=== PATIENT | female | born 1975 | race Caucasian/White ===

== ENCOUNTER 2016-09-08 17:01 | Emergency (ER) | payer OTHER ==
[~2016-09-08] VITALS: Ht 160 cm; Wt 114.9 kg
[~2016-09-08 17:01] MED LIST: AMIT50TA3 PO; INSUINJ14 SC; LEVO50TA6 PO; PANT40TA PO; ZOLP10TA PO
[2016-09-08 17:14] VITALS: TEMP 36.9; Ht 160 cm; Wt 114.9 kg
[2016-09-08] MEDS ORDERED: SODIUM CHLORIDE 0.9% 1000ML 1,000 ML IV STA ×2 (18:26→19:13)
[2016-09-08 18:58] LABS: BASO % 0.3 %; BASO ABS # 0.03 K/uL (0-0.2); COMPLETE YES; EOS % 1.2 %; HEMATOCRIT 43.2 % (37-47); IG% 0.4 %; LYMPH % 30.1 %; LYMPH ABS # 3.41 K/uL (1.2-3.4); MEAN CELL VOLUME 81.8 fL (80-100); MEAN CORPUSCULAR HEMOGLOBIN 29.4 pg (25-34); MEAN CORPUSCULAR HGB CONC 35.9 g/dl (32-36); MEAN PLATELET VOLUME 9.8 fL (7.4-10.4); MONO % 5.7 %; NEUT % 62.3 %; PLATELET COUNT 290 K/uL (130-400); RED BLOOD COUNT 5.28 M/uL (4.2-5.4); WHITE BLOOD COUNT 11.32 K/uL (4.8-10.8)
[2016-09-08 19:07] VITALS: O2SAT 98
[2016-09-08 19:09] LABS: PROTHROMBIN TIME (PATIENT) 10.5 SECONDS (9.0-12.0)
[2016-09-08] MEDS ORDERED: NovoLIN-R INSULIN PER UNIT CHARGE IV STA (19:13)
[2016-09-08 19:18] LABS: BUN/CREATININE RATIO 9.5 (10-20); CALCIUM 10.2 mg/dl (8.5-10.1); CREATININE 0.87 mg/dl (0.60-1.20); MAGNESIUM 1.9 mg/dl (1.8-2.4); POTASSIUM 3.6 mmol/L (3.5-5.1)
[2016-09-08 19:27] LABS: BETA-HYDROXYBUTYRATE 1.46 mg/dL (0.2-2.81); THYROID STIMULATING HORMONE 3.16 uIu/ml (0.300-4.500)
[2016-09-08 20:14] LABS: URINE APPEARANCE CLEAR (CLEAR); URINE BILIRUBIN NEG (NEG); URINE COLOR YELLOW; URINE NITRITE NEG (NEG); URINE SPECIFIC GRAVITY 1.012 (1.000-1.030); UROBILINOGEN NEG (NEG)
[2016-09-08 20:27] LABS: MANUAL MICROSCOPIC REQUIRED? NO; REVIEW REQ? NO
[2016-09-08] MEDS ORDERED: ALBUAER INH (20:30)
[2016-09-08 21:42] VITALS: BP 146/74; PULSE 98; O2SAT 98
--- NOTE | 2016-09-08 21:43 | EMERGENCY ROOM VISIT NOTE ---
History Report prepared by Fred: Lana Bagley Under the Supervision of: Dr. George Villatoro M.D. 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 States BSG in the 400's the past couple days. Pt states, "I feel like I am getting a cold. I get nausea when I eat." History of Present Illness The patient is a 41 year old female who presents to the Emergency Room with complaints of persistent hyperglycemia that began prior to arrival. The patient states that she was at her PCP's office today that revealed a blood glucose level of 547 mg/dL. She states that she was instructed to go home, recheck her blood glucose level, take insulin, and then come to the emergency department if it is still elevated. The patient states that her blood glucose level was still elevated and was instructed to come to the emergency department. She additionally associates dizziness, polydipsia, and polyuria with her symptoms today. The patient states that she takes NovoLog and Metformin for her diabetes, but states that she often forgets to take her insulin when she eats. She states that she takes 40 units of NovoLog in the evening and if her level is high, she has been told that she can add more NovoLog. The patient states that she has had a hard time maintaining her blood glucose levels and states that she feels uneasy going home even if her blood glucose is brought down to a normal level. She additionally notes that she feels as if she is developing a cold. Pt denies LOC, headache, fevers, chills, diaphoresis, visual changes, neck pain, chest pain, breathing difficulties, nausea, vomiting, abdominal pain, back pain, melena, hematochezia, urinary symptoms, numbness, weakness, lymphadenopathy, rash, or other complaints. Source of History: patient Onset: prior to arrival Position: other (global) Symptom Intensity: 547 mg/dL Quality: other (hyperglycemia) Timing: other (persistent) Associated Symptoms: + urinary symptoms (polyuria) Note: Associated Symptoms: dizziness, polydipsia Review of Systems See HPI for pertinent positives and negatives. A total of ten systems were reviewed and were otherwise negative. Past Medical & Surgical Medical Problems: (1) Asthma (2) ASTHMA, UNSPECIFIED (3) BIPOLAR DISORDER, UNSPECIFIED (4) DIAB NIKHIL WO COMPL, TYPE II OR UNSPEC TYPE, NOT UNCNTRLD (5) Diabetic neuropathy (6) DIVERTICULOSIS COLON (W/O MENT OF HEMORRHAGE) (7) DKA (diabetic ketoacidoses) (8) Endometriosis (9) ESOPHAGEAL REFLUX (10) Gallstone (11) Gastritis (12) Hiatal hernia (13) Hyperlipidemia (14) IBS (irritable bowel syndrome) (15) MIGRAINE UNSPECIFIED W/O INTRACTABLE MIGRAINE (16) MORBID OBESITY (17) Ovarian cyst (18) Sciatica (19) TIA (transient ischemic attack) (20) Vertigo Surgical Problems: (1) H/O: hysterectomy (2) History of cholecystectomy (3) TUBAL LIGATION STATUS Family History Diabetes mellitus FH: gallbladder disease FH: lung disease FH: seizures Heart disease Hypertension Social History Smoking Status: Never Smoker Alcohol Use: none Drug Use: none Marital Status: in relationship Housing Status: lives with family Occupation Status: unemployed Current/Historical Medications Scheduled Amitriptyline Hcl (Amitriptyline Hcl), 50 MG PO HS Aspirin (Aspirin Ec), 81 MG PO DAILY Bupropion (Wellbutrin Sr), 100 MG PO QPM Calcium Carbonate (Tums), 2 TABS PO PRN Diclofenac Sod (Diclofenac Sodium Dr), 50 MG PO DAILY Diphenhydramine Hcl (Benadryl Allergy), 1 CAP PO HS Fluticasone Prop/Salmeterol (Advair Diskus 250/50 60 Dose), 1 PUFF INH BID Gabapentin (Gabapentin), 300 MG PO TID Insulin Aspart Penfill (Novolog Penfill), 40 UNITS SC TIDM Insulin Glargine (Toujeo Solostar), 90 UNITS SQ DAILY Levothyroxine Sodium (Levothyroxine Sodium), 50 MCG PO DAILY Lisinopril (Lisinopril), 2.5 MG PO DAILY Metformin Hcl Er (Glucophage Er), 1,000 MG PO HS Olanzapine (Zyprexa), 20 MG PO HS Pantoprazole (Protonix), 40 MG PO DAILY Polyethylene Glycol 3350 (Miralax), 17 GM PO DAILY Ranitidine Hcl (Zantac), 300 MG PO HS Simvastatin (Simvastatin), 20 MG PO DAILY Zolpidem Tartrate (Ambien), 10 MG PO HS Scheduled PRN Albuterol (Proventil Hfa), 2 PUFFS INH Q4-6HRS PRN for Asthma Docusate Sodium (Colace), 100 MG PO BID PRN for Constipation Fluticasone Propionate (Fluticasone Propionate), 2 SPRAYS ROLY DAILY PRN for Allergies Ibuprofen (Advil), 800 MG PO DAILY PRN for Headache or Pain Ipratropium-Albuterol (Duoneb), 1 TREATMENT INH Q4H PRN for PRN Loratadine (Claritin), 10 MG PO DAILY PRN for ALLERGIC REACTION Lorazepam (Lorazepam), 0.5 MG PO BID PRN for Anxiety Allergies Coded Allergies: BEE STING (Verified Allergy, Intermediate, LARGE SWELLING/RED/WELT. TURNS INTO BRUISING, 05/14/16) Dust (Verified Allergy, Intermediate, ITCHY EYES/SCRATCHY THROAT. SWOLLEN EYES, 05/14/16) Morphine (Verified Allergy, Intermediate, LOCALIZED REACTION: RED/WELTS, ) POLLEN (Verified Allergy, Intermediate, ITCHY EYES/SCRATCHY THROAT. SWOLLEN EYES, 05/14/16) Adhesives (Verified Allergy, Unknown, VERY RED SKIN AND ITCHY, 05/14/16) Citalopram (Verified Allergy, Unknown, JAW PAIN AND HEADACHES, 05/14/16) Physical Exam Vital Signs Date Time Temp Pulse Resp B/P Pulse Ox O2 Delivery O2 Flow Rate FiO2 09/08/16 19:10 102 09/08/16 19:07 98 Room Air 09/08/16 17:14 36.9 121 18 129/90 95 Room Air Physical Exam GENERAL: Awake, alert, well-appearing, in no distress HENT: Normocephalic, atraumatic. Oropharynx unremarkable. EYES: Normal conjunctiva. Sclera non-icteric. NECK: Supple. No nuchal rigidity. FROM. No JVD. RESPIRATORY: Clear to auscultation. CARDIAC: Borderline tachycardic rate, normal rhythm. Extremities warm and well perfused. Pulses equal. ABDOMEN: Soft, non-distended. No tenderness to palpation. No rebound or guarding. No masses. RECTAL: Deferred. MUSCULOSKELETAL: Chest examination reveals no tenderness. The back is symmetrical on inspection without obvious abnormality. There is no CVA tenderness to palpation. No joint edema. LOWER EXTREMITIES: Calves are equal size bilaterally and non-tender. No edema. No discoloration. NEURO: Normal sensorium. No sensory or motor deficits noted. SKIN: No rash or jaundice noted. Medical Decision & Procedures Laboratory Results 09/08/16 18:35 Red Blood Count 5.28, Mean Corpuscular Volume 81.8, Mean Corpuscular Hemoglobin 29.4, Mean Corpuscular Hemoglobin Concent 35.9, Mean Platelet Volume 9.8, Neutrophils (%) (Auto) 62.3, Lymphocytes (%) (Auto) 30.1, Monocytes (%) (Auto) 5.7, Eosinophils (%) (Auto) 1.2, Basophils (%) (Auto) 0.3, Neutrophils # (Auto) 7.06, Lymphocytes # (Auto) 3.41, Monocytes # (Auto) 0.64, Eosinophils # (Auto) 0.14, Basophils # (Auto) 0.03 09/08/16 18:35 Test 09/08/16 14:55 09/08/16 18:35 09/08/16 20:43 Urine Color YELLOW Urine Appearance CLEAR (CLEAR) Urine pH 5.0 (4.5-7.5) Urine Specific [place] 1.012 (1.000-1.030) Urine Protein NEG (NEG) Urine Glucose (UA) 3+ (NEG) Urine Ketones NEG (NEG) Urine Occult Blood NEG (NEG) Urine Nitrite NEG (NEG) Urine Bilirubin NEG (NEG) Urine Urobilinogen NEG (NEG) Urine Leukocyte Esterase NEG (NEG) White Blood Count 11.32 K/uL (4.8-10.8) Red Blood Count 5.28 M/uL (4.2-5.4) Hemoglobin 15.5 g/dL (12.0-16.0) Hematocrit 43.2 % (37-47) Mean Corpuscular Volume 81.8 fL (80-100) Mean Corpuscular Hemoglobin 29.4 pg (25-34) Mean Corpuscular Hemoglobin Concent 35.9 g/dl (32-36) Platelet Count 290 K/uL (130-400) Mean Platelet Volume 9.8 fL (7.4-10.4) Neutrophils (%) (Auto) 62.3 % Lymphocytes (%) (Auto) 30.1 % Monocytes (%) (Auto) 5.7 % Eosinophils (%) (Auto) 1.2 % Basophils (%) (Auto) 0.3 % Neutrophils # (Auto) 7.06 K/uL (1.4-6.5) Lymphocytes # (Auto) 3.41 K/uL (1.2-3.4) Monocytes # (Auto) 0.64 K/uL (0.11-0.59) Eosinophils # (Auto) 0.14 K/uL (0-0.5) Basophils # (Auto) 0.03 K/uL (0-0.2) RDW Standard Deviation 39.2 fL (36.4-46.3) RDW Coefficient of Variation 13.0 % (11.5-14.5) Immature Granulocyte % (Auto) 0.4 % Immature Granulocyte # (Auto) 0.04 K/uL (0.00-0.02) Prothrombin Time 10.5 SECONDS (9.0-12.0) Prothromb Time International Ratio 1.0 (0.9-1.1) Activated Partial Thromboplast Time 24.8 SECONDS (21.0-31.0) Partial Thromboplastin Ratio 1.0 Anion Gap 11.0 mmol/L (3-11) Est Creatinine Clear Calc Drug Dose 101.9 ml/min Estimated GFR () 94.6 Estimated GFR (Non- 81.6 BUN/Creatinine Ratio 9.5 (10-20) Calcium Level 10.2 mg/dl (8.5-10.1) Magnesium Level 1.9 mg/dl (1.8-2.4) Total Bilirubin 0.4 mg/dl (0.2-1) Direct Bilirubin 0.1 mg/dl (0-0.2) Aspartate Amino Transf (AST/SGOT) 47 U/L (15-37) Alanine Aminotransferase (ALT/SGPT) 59 U/L (12-78) Alkaline Phosphatase 145 U/L (45-117) Total Protein 8.5 gm/dl (6.4-8.2) Albumin 3.7 gm/dl (3.4-5.0) Lipase 154 U/L (73-393) Beta-Hydroxybutyric Acid 1.46 mg/dL (0.2-2.81) Thyroid Stimulating Hormone (TSH) 3.160 uIu/ml (0.300-4.500) Bedside Glucose 157 mg/dl (70-90) Laboratory results reviewed by me Medications Administered Medications (Trade) Dose Ordered Sig/Moon Route Start Time Stop Time Status Last Admin Dose Admin Sodium Chloride 1,000 ml @ 999 mls/hr Q1H1M STAT IV 09/08/16 18:26 09/08/16 19:26 DC 09/08/16 18:26 999 MLS/HR Sodium Chloride (Nss 1000ml) 1,000 ml @ 999 mls/hr Q1H1M STAT IV 09/08/16 19:13 09/08/16 20:13 DC 09/08/16 19:13 999 MLS/HR Insulin Human Regular (novoLIN-R U-100 PER UNIT) 10 units NOW STAT IV 09/08/16 19:13 09/08/16 19:14 DC 09/08/16 19:13 10 UNITS ECG Indication: other (hyperglycemia) Rate (beats per minute): 106 Rhythm: sinus tachycardia Findings: no acute ischemic change, no ectopy, other (incomplete right bundle branch block) ED Course 1825: Ordered Sodium Chloride 1000 ml @ 999 mls/hr IV. 1835: The patient was evaluated in room C5. A complete history and physical exam was performed by the medical student. 1909: The patient was evaluated in room C5. A complete history and physical exam was performed. 1912: Ordered Insulin Human Regular 10 units IV, Sodium Chloride 1000 ml @ 999 mls/hr IV. 2035: I reevaluated the patient and she is resting comfortably. She is going to have a blood glucose rechecked and is hoping to go home. I discussed all the exam findings and I discussed the treatment plan. She verbalized complete understanding and agreement. 2104: A recheck of the patient's blood glucose revealed 157 mg/dL. 2108: Case management is going to see if a supervisor case loading is available for the patient. Case Management is also going to get the patient in to see her application analyst and PCP tomorrow. 2121: I reevaluated the patient and she is resting comfortably. I discussed the exam findings and I discussed the treatment plan. She verbalized complete understanding and agreement. She is ready to go home. Medical Decision Triage Nursing notes reviewed. The patient's presentation and history were concerning for hyperglycemia. Etiologies such as metabolic, infection, hypo/hyperglycemia, electrolyte abnormalities, cardiac sources, intracerebral event, toxicologic, neurologic, as well as others were entertained. The patient was evaluated. Clinically she was doing well. Her blood sugar was high. The patient seems to have difficulty grasping the concept of diabetic management. She was hydrated. She was given 10 units of IV insulin. Her blood sugar dropped appropriately into a safe range. She was down to 157 prior to discharge. She had a minimal leukocytosis but had no infectious symptoms. Her urinalysis was unremarkable. CBC was unremarkable. Beta hydroxybutyrate was negative. There is no acidosis noted on chemistry panel. I do not suspect DKA given her laboratory findings and her clinical picture. I'm concerned that the patient has a poor understanding about her diabetic management. She also has some issues with follow-up appointments as she accidentally missed her last endocrinology visit. Case management met with the patient on my request. They are going to follow up with her esthetician and manager medical spa as well as primary office and endocrinology office tomorrow morning. The hope is the patient will be able to be seen tomorrow in the office to coordinate additional care. ECG was unremarkable as well. Upon reassessment prior to discharge the patient was doing well. She was in good spirits. She feels comfortable with outpatient follow-up. I gave my usual and customary discussion regarding this issue. By the evaluation outlined above other emergent etiologies such as those listed in the differential, as well as others, were deemed relatively unlikely. The patient was informed about the findings as listed above. All questions were answered and she was pleased with the treatment. Return instructions were outlined and the patient was discharged in stable condition. The patient was referred to her PCP and endocrinology for follow-up tomorrow for a recheck of the current condition. The chart was completed utilizing [employer] Speech voice recognition software. Grammatical errors, random word insertions, pronoun errors, and incomplete sentences are an occasional consequence of this system due to software limitations, ambient noise, and hardware issues. Any formal questions or concerns about the content, text, or information contained within the body of this dictation should be directly addressed to the physician for clarification. Impression Primary Impression: Hyperglycemia Scribe Attestation The scribe's documentation has been prepared under my direction and personally reviewed by me in its entirety. I confirm that the note above accurately reflects all work, treatment, procedures, and medical decision making performed by me. Departure Information Dispostion Home / Self-Care Referrals Katiuska Mortensen DO (PCP) Forms HOME CARE DOCUMENTATION FORM, IMPORTANT VISIT INFORMATION, WORK / SCHOOL INSTRUCTIONS Patient Instructions A Signature Page, My [facility] Additional Instructions Continue current medications. Follow all recommendations present given to you by Endocrinology and your primary physician. Return to the ER for worsening Blood sugar problems, blood sugar greater than than 400 despite your treatment, blood sugar dipping below 70, abdominal pain, vomiting, fevers, bloody stools, or as needed. Case management is going to contact your primary and endocrinology offices tomorrow morning. You should hear from them by 10 AM. If you do not call the offices to set up appointments. You should be seen tomorrow in order to update your diabetes care.
[2016-10-24] MEDS ORDERED: RANI300T PO (13:10)
[2016-10-24] MEDS ORDERED: ATV5X PO (13:10)
[2016-10-24] MEDS ORDERED: ASPI81TA28 PO (14:32)
[2016-10-24] MEDS ORDERED: IPRASOL4 INH (15:55)
[2016-10-24] MEDS ORDERED: POLY335019 PO (15:55)
[2016-10-24] MEDS ORDERED: DIPH25CA65 PO (17:33)
[2016-10-24] MEDS ORDERED: METF500T5 PO (18:01)
[2016-10-24] MEDS ORDERED: INSU1.2I SQ (18:01)
[2016-10-24] MEDS ORDERED: LSN25 PO (18:03)
[2016-10-24] MEDS ORDERED: BUPR100T8 PO (18:04)
[2016-10-24] MEDS ORDERED: LORA10TA5 PO (18:08)
[2016-10-24] MEDS ORDERED: OLAN1TAB5 PO (18:08)
[2016-10-24] MEDS ORDERED: VLT50 PO (18:08)
[2016-10-24] MEDS ORDERED: DOCU-94 PO (19:14)
[2016-10-24] MEDS ORDERED: GABA1CAP4 PO (20:30)
[2016-10-24] MEDS ORDERED: FLNIN/ NAE (20:30)
[2016-10-24] MEDS ORDERED: ADVIN25/60 INH (20:33)
[2016-10-24] MEDS ORDERED: SIMV-151 PO (20:41)
[2016-10-24] MEDS ORDERED: IBUP-1050 PO (20:41)
[2016-10-24] MEDS ORDERED: CALC500C3 PO (20:44)
[2017-04-20] MEDS ORDERED: METF1000 PO (11:05)
[2017-04-20] MEDS ORDERED: VITAMIN D3 PO (11:06)
== END 2016-09-08 21:45 | disposition home or self-care (01) ==
LOC: C.EDB 17:01 → C.EDC 21:45
DX: E11.65 Type 2 diabetes mellitus with hyperglycemia (principal); Z79.4 Long term (current) use of insulin; Z79.899 Other long term (current) drug therapy; Z79.82 Long term (current) use of aspirin; J45.909 Unspecified asthma, uncomplicated; F31.9 Bipolar disorder, unspecified; K21.9 Gastro-esophageal reflux disease without esophagitis; K80.20 Calculus of gallbladder without cholecystitis without obstruction; K58.9 Irritable bowel syndrome, unspecified; K44.9 Diaphragmatic hernia without obstruction or gangrene; E78.5 Hyperlipidemia, unspecified; K57.31 Diverticulosis of large intestine without perforation or abscess with bleeding; E66.01 Morbid (severe) obesity due to excess calories; Z68.41 Body mass index [BMI] 40.0-44.9, adult; K29.71 Gastritis, unspecified, with bleeding

== ENCOUNTER → 2016-09-20 | Outpatient (CLI) | payer OTHER ==
[~2016-09-20] MED LIST changes: +ADVIN25/60 INH; +ALBUAER INH; +AMT/50 PO; +ASPI81TA28 PO; +ATV5X PO; +BUPR100T8 PO; +CALC500C3 PO; +DIPH25CA65 PO; +DOCU-94 PO; +FLM4 PO; +FLNIN/ NAE; +GABA1CAP4 PO; +IBUP-1050 PO; +INSU1.2I SQ; +IPRASOL4 INH; +LEVO75TA5 PO; +LORA10TA5 PO; +LSN25 PO; +METF1000 PO; +METF1TAB53 PO; +METF500T5 PO; +MULT-240 PO; +NITR-5 PO; +NVLGI/PEN SC; +OLAN1TAB5 PO; +ONDA4TAB10 SL; +OXYC-57 PO; +POLY335019 PO; +PRT/40 PO; +RANI300T PO; +SIMV-151 PO; +SULF800T23 PO; +TAMS0.4C38 PO; +VITAMIN D3 PO; +VLT50 PO; +ZOLP10TA6 PO
--- NOTE | 2016-09-21 14:25 | MAMMOGRAPHY REPORT ---
BILATERAL DIGITAL SCREENING MAMMOGRAM TOMOSYNTHESIS WITH CAD: 09/20/2016 CLINICAL HISTORY: Routine screening. Patient has no complaints. TECHNIQUE: Breast tomosynthesis in addition to standard 2D mammography was performed. Current study was also evaluated with a Computer Aided Detection (CAD) system. COMPARISON: Comparison is made to exams dated: 07/22/2015 mammogram, 10/24/2011 mammogram, and 2011 ultrasound - [facility]. BREAST COMPOSITION: The tissue of both breasts is almost entirely fatty. FINDINGS: A 10 x 16 mm focal asymmetry in the 6:00 posterior left breast is increasingly conspicuous compared to prior exams. Although this could represent normal fibrofatty glandular tissue, additio nal spot compression tomosynthesis views and possibly ultrasound are recommended. No other suspicious mass, architectural distortion or cluster of microcalcifications is seen. IMPRESSION: ACR BI-RADS CATEGORY 0: INCOMPLETE EVALUATION: NEED ADDITIONAL IMAGING EVALUATION The 10 x 16 mm focal asymmetry in the left 6:00 breast needs additional evaluation. The patient will be called to schedule an appointment. Approximately 10% of breast cancers are not detected with mammography. A negative mammographic repor t should not delay biopsy if a clinically suggestive mass is present. Sonya Villalpando M.D. ay/:09/20/2016 21:49:55 Oil Mixer: Obdulia MARKS)(Fidel)(BD), [facility] letter sent: Addl Imaging 0 BI-RADS Code: ACR BI-RADS Category 0: Incomplete Evaluation: Need Additional Imaging Evaluation
== END | disposition home or self-care (01) ==
LOC: C.MAMM 14:10
PROVIDERS: ATTEND Nurse Practitioner Adult Health
DX: Z12.31 Encounter for screening mammogram for malignant neoplasm of breast (principal); N64.89 Other specified disorders of breast

== ENCOUNTER → 2016-09-30 | Outpatient (CLI) | payer OTHER ==
--- NOTE | 2016-09-30 12:26 | MAMMOGRAPHY REPORT ---
UNILATERAL LEFT DIGITAL DIAGNOSTIC MAMMOGRAM TOMOSYNTHESIS AND TARGETED LEFT ULTRASOUND: 09/30/2016 CLINICAL HISTORY: Callback from screening mammogram for left breast asymmetry. TECHNIQUE: Breast tomosynthesis in addition to standard 2D mammography was performed. Spot nguyen vasu left CC and MLO 2-D and tomosynthesis images were obtained. COMPARISON: Comparison is made to exams dated: 09/20/2016 mammogram, 07/22/2015 mammogram, 10/24/2011 ultrasound, and 10/24/2011 mammogram - [facility]. BREAST COMPOSITION: The tissue of the left breast is almost entirely fatty. FINDINGS: The previously described focal asymmetry in the left 6:00 breast effaces on the spot comp ression views, with appearance of this region similar to prior exams including the October 2011 exa m. The asymmetry has the appearance of normal fibroglandular tissue on the tomosynthesis images. Targeted ultrasound was performed of the left 6:00 breast in the region of the mammographic asymmetr y. Sonographically normal tissue is seen, without evidence of a mass or other suspicious sonographi c abnormality. IMPRESSION: ACR BI-RADS CATEGORY 2: BENIGN, TARGETED ULTRASOUND ACR BI-RADS CATEGORY 2: BENIGN The left 6:00 asymmetry effaces to a baseline appearance on the additional views, without correspond ing sonographic abnormalities evident. The asymmetry is benign and compatible with normal fibroglan dular tissue. There is no mammographic or targeted sonographic evidence of malignancy. A 1 year scr eening mammogram is recommended. The patient has been verbally notified of the results. Approximately 10% of breast cancers are not detected with mammography. A negative mammographic repor t should not delay biopsy if a clinically suggestive mass is present. Lizbeth Brooks M.D. /:09/30/2016 10:03:53 Carpenter Prototype: Natalie Chua, [facility] letter sent: Normal /2 BI-RADS Code: ACR BI-RADS Category 2: Benign Ultrasound BI-RADS: ACR BI-RADS Category 2: Benign
== END | disposition home or self-care (01) ==
LOC: C.MAMM 09:36
PROVIDERS: ATTEND Nurse Practitioner Adult Health
DX: R92.8 Other abnormal and inconclusive findings on diagnostic imaging of breast (principal)

== ENCOUNTER 2016-10-10 14:20 | Emergency (ER) | payer OTHER ==
[~2016-10-10] VITALS: Ht 160 cm; Wt 113.5 kg
[~2016-10-10 14:20] MED LIST changes: -ADVIN25/60 INH; -AMT/50 PO; -ASPI81TA28 PO; -ATV5X PO; -BUPR100T8 PO; -CALC500C3 PO; -DIPH25CA65 PO; -DOCU-94 PO; -FLM4 PO; -FLNIN/ NAE; -GABA1CAP4 PO; -IBUP-1050 PO; -INSU1.2I SQ; -IPRASOL4 INH; -LEVO75TA5 PO; -LORA10TA5 PO; -LSN25 PO; -METF1000 PO; -METF1TAB53 PO; -METF500T5 PO; -MULT-240 PO; -NITR-5 PO; -NVLGI/PEN SC; -OLAN1TAB5 PO; -ONDA4TAB10 SL; -OXYC-57 PO; -POLY335019 PO; -PRT/40 PO; -RANI300T PO; -SIMV-151 PO; -SULF800T23 PO; -TAMS0.4C38 PO; -VITAMIN D3 PO; -VLT50 PO; -ZOLP10TA6 PO
[2016-10-10 14:30] VITALS: TEMP 36.9; Ht 160 cm; Wt 113.5 kg
[2016-10-10] MEDS ORDERED: KETOROLAC TROMETHAMINE 30 MG/ML VIAL IV STA (14:51)
[2016-10-10 15:34] LABS: URINE APPEARANCE TURBID (CLEAR); URINE COLOR ORANGE; URINE EPITHELIAL CELL AUTO >30 /lpf (0-5); URINE NITRITE POS (NEG); URINE SPECIFIC GRAVITY 1.035 (1.000-1.030); UROBILINOGEN NEG (NEG); ZZUR CULT IF INDIC CLEAN CATCH YES
[2016-10-10 15:35] LABS: MANUAL MICROSCOPIC REQUIRED? NO; REVIEW REQ? YES
[2016-10-10 15:37] LABS: BASO % 0.1 %; BASO ABS # 0.01 K/uL (0-0.2); COMPLETE YES; EOS % 1.5 %; HEMATOCRIT 41.8 % (37-47); IG% 0.3 %; LYMPH % 25.2 %; LYMPH ABS # 2.18 K/uL (1.2-3.4); MEAN CELL VOLUME 83.3 fL (80-100); MEAN CORPUSCULAR HEMOGLOBIN 29.3 pg (25-34); MEAN CORPUSCULAR HGB CONC 35.2 g/dl (32-36); MONO % 4.9 %; PLATELET COUNT 252 K/uL (130-400); RED BLOOD COUNT 5.02 M/uL (4.2-5.4); WHITE BLOOD COUNT 8.64 K/uL (4.8-10.8)
[2016-10-10 15:37] LABS: URINE BILIRUBIN NEG (NEG)
[2016-10-10 15:42] LABS: BUN/CREATININE RATIO 12.6 (10-20); CREATININE 0.86 mg/dl (0.60-1.20); POTASSIUM 3.7 mmol/L (3.5-5.1)
--- NOTE | 2016-10-10 16:52 | DIAGNOSTIC IMAGING REPORT ---
ULTRASOUND LEFT VENOUS DOPP LOWER EXT UNILAT CLINICAL HISTORY: Left leg pain COMPARISON STUDY: No previous studies for comparison. FINDINGS: Real-time and color flow Doppler imaging were performed. Flow was seen within the femoral, popliteal and calf veins with no intraluminal thrombus demonstrated. The saphenous vein is patent. IMPRESSION: No evidence of left lower extremity DVT. Electronically signed by: Shashi Cesar M.D. 10/10/2016 4:51 PM Dictated Date/Time: 10/10/2016 4:50 PM
--- NOTE | 2016-10-10 16:58 | DIAGNOSTIC IMAGING REPORT ---
EXAMINATION: PELVIC ULTRASOUND (transabdominal and endovaginal) CLINICAL HISTORY: Pelvic pain COMPARISON STUDY: 11/28/2014 FINDINGS: The uterus is surgically absent. The right ovary was not visualized. The left ovary measured 33 x 22 x 33 mm. There is a 22 mm left ovarian cyst.. There is no ultrasonographic evidence of ovarian torsion. It should be noted that ovarian torsion can be present with normal Doppler ultrasonographic findings. There was no evidence of pathologic free pelvic fluid. IMPRESSION: 1. Surgically absent uterus 2. Nonvisualization of the right ovary 3. Interval decrease in the size of the left ovarian cyst currently measuring 22 mm. Electronically signed by: Shashi Cesar M.D. 10/10/2016 4:57 PM Dictated Date/Time: 10/10/2016 4:54 PM
[2016-10-10] MEDS ORDERED: NITR-5 PO (17:16)
[2016-10-10 17:20] VITALS: BP 114/81; PULSE 84; O2SAT 96
--- NOTE | 2016-10-10 22:41 | EMERGENCY ROOM VISIT NOTE ---
History First contact with patient: 14:38 Chief Complaint: ABDOMINAL PAIN Stated Complaint: BELLY PAIN Nursing Triage Summary: abdominal pain and nausea started this morning. denies any other symptoms at this time History of Present Illness The patient is a 41 year old female who presents to the Emergency Room with complaints of lower abdominal pain, mild nausea and pain radiating down the left lower leg to the foot. The patient reports a prior history of ovarian cyst , and reports that this pain feels the same. She has also noticed urinary discomfort. She denies any fevers or chills, or back pain. She does report a prior history of sciatica, and reports that the pain in her leg feels the same. She reports that it feels like a cramp in her left leg. The patient denies any diarrhea, bloody or mucus stools, upper abdominal pain, sore throat or cough. She denies any other recent illnesses. Last menstruation was one week ago, and the patient denies . She rates her discomfort a 5 out of 10. Review of Systems HEENT: Denies dizziness, visual problems, hearing loss, tinnitus. Denies difficulty swallowing or oral lesions. PULMONARY: Denies cough, shortness of breath, sputum production or hemoptysis. CARDIOVASCULAR: Denies chest pain, palpitations, dyspnea on exertion, orthopnea or peripheral edema. GASTROINTESTINAL: Denies diarrhea or constipation, otherwise see history of present illness. GENITOURINARY: Reports dysuria and frequency. Denies hematuria. NEUROLOGIC: Denies history of epilepsy, CVA, TIA or chronic headaches. MUSCULOSKELETAL: Denies history of joint tenderness/swelling. SKIN: Denies rashes or lesions. PSYCHIATRIC: Denies history of depression or mental illness. ENDOCRINE: Denies history of diabetes or thyroid disorders. Past Medical/Surgical History Medical Problems: (1) Asthma (2) ASTHMA, UNSPECIFIED (3) BIPOLAR DISORDER, UNSPECIFIED (4) DIAB NIKHIL WO COMPL, TYPE II OR UNSPEC TYPE, NOT UNCNTRLD (5) Diabetic neuropathy (6) DIVERTICULOSIS COLON (W/O MENT OF HEMORRHAGE) (7) DKA (diabetic ketoacidoses) (8) Endometriosis (9) ESOPHAGEAL REFLUX (10) Gallstone (11) Gastritis (12) Hiatal hernia (13) Hyperlipidemia (14) IBS (irritable bowel syndrome) (15) MIGRAINE UNSPECIFIED W/O INTRACTABLE MIGRAINE (16) MORBID OBESITY (17) Ovarian cyst (18) Sciatica (19) TIA (transient ischemic attack) (20) Vertigo Surgical Problems: (1) H/O: hysterectomy (2) History of cholecystectomy (3) TUBAL LIGATION STATUS Family History Diabetes mellitus FH: gallbladder disease FH: lung disease FH: seizures Heart disease Hypertension Social History Smoking Status: Never Smoker Alcohol Use: none Drug Use: none Marital Status: in relationship Housing Status: lives with family Occupation Status: unemployed Current/Historical Medications Scheduled Amitriptyline Hcl (Amitriptyline Hcl), 50 MG PO HS Aspirin (Aspirin Ec), 81 MG PO DAILY Bupropion (Wellbutrin Sr), 100 MG PO QPM Calcium Carbonate (Tums), 2 TABS PO PRN Diclofenac Sod (Diclofenac Sodium Dr), 50 MG PO DAILY Diphenhydramine Hcl (Benadryl Allergy), 1 CAP PO HS Fluticasone Prop/Salmeterol (Advair Diskus 250/50 60 Dose), 1 PUFF INH BID Gabapentin (Gabapentin), 300 MG PO TID Insulin Aspart Penfill (Novolog Penfill), 40 UNITS SC TIDM Insulin Glargine (Toujeo Solostar), 90 UNITS SQ DAILY Levothyroxine Sodium (Levothyroxine Sodium), 50 MCG PO DAILY Lisinopril (Lisinopril), 2.5 MG PO DAILY Metformin Hcl Er (Glucophage Er), 1,000 MG PO HS Nitrofurantoin Monohyd Macrocr (Macrobid), 100 MG PO BID Olanzapine (Zyprexa), 20 MG PO HS Pantoprazole (Protonix), 40 MG PO DAILY Polyethylene Glycol 3350 (Miralax), 17 GM PO DAILY Ranitidine Hcl (Zantac), 300 MG PO HS Simvastatin (Simvastatin), 20 MG PO DAILY Zolpidem Tartrate (Ambien), 10 MG PO HS Scheduled PRN Albuterol (Proventil Hfa), 2 PUFFS INH Q4-6HRS PRN for Asthma Docusate Sodium (Colace), 100 MG PO BID PRN for Constipation Fluticasone Propionate (Fluticasone Propionate), 2 SPRAYS ROLY DAILY PRN for Allergies Ibuprofen (Advil), 800 MG PO DAILY PRN for Headache or Pain Ipratropium-Albuterol (Duoneb), 1 TREATMENT INH Q4H PRN for PRN Loratadine (Claritin), 10 MG PO DAILY PRN for ALLERGIC REACTION Lorazepam (Lorazepam), 0.5 MG PO BID PRN for Anxiety Allergies Coded Allergies: BEE STING (Verified Allergy, Intermediate, LARGE SWELLING/RED/WELT. TURNS INTO BRUISING, 10/10/16) Dust (Verified Allergy, Intermediate, ITCHY EYES/SCRATCHY THROAT. SWOLLEN EYES, 10/10/16) Morphine (Verified Allergy, Intermediate, LOCALIZED REACTION: RED/WELTS, ) POLLEN (Verified Allergy, Intermediate, ITCHY EYES/SCRATCHY THROAT. SWOLLEN EYES, 10/10/16) Adhesives (Verified Allergy, Unknown, VERY RED SKIN AND ITCHY, 10/10/16) Citalopram (Verified Allergy, Unknown, JAW PAIN AND HEADACHES, 10/10/16) Physical Exam Vital Signs Date Time Temp Pulse Resp B/P Pulse Ox O2 Delivery O2 Flow Rate FiO2 10/10/16 17:20 84 16 114/81 96 Room Air 10/10/16 16:10 108 20 119/78 96 Room Air 10/10/16 14:30 36.9 110 18 113/82 95 Room Air Physical Exam CONSTITUTIONAL: Morbidly obese female, alert and oriented X 3 with positive affect. Patient does not appear in any acute distress on exam. HEENT: Normocephalic, atraumatic. Pupils equal, round and reactive. Ears and nares are clear. No scleral icterus or conjunctival injection/pallor. NECK: Full active range of motion without discomfort. No JVD or carotid bruits. RESPIRATORY: Clear to auscultation bilaterally with no wheezing, crackles, rhonchi or stridor. CARDIOVASCULAR: Regular rate and rhythm with no murmurs, rubs or gallops. GASTROINTESTINAL: Bowel sounds present in all quadrants. She has minimal suprapubic tenderness to palpation. Negative McBurney's point tenderness. No focal left lower quadrant tenderness to palpation. No rigidity, guarding or rebound. Negative CVA tenderness. MUSCULOSKELETAL: Full range of motion of all joints without discomfort. No focal tenderness to palpation through the lower lumbar spine, left SI joint or sciatic notch. Negative logroll. Negative straight leg raise. No obvious edema of the left lower extremity. No tenderness to palpation about the foot, ankle or knee. No popliteal masses. Pedal pulses are intact. INTEGUMENTARY: No rash or other significant dermatologic conditions noted. HEMATOLOGIC: No ecchymosis or petechiae noted. NEUROLOGIC: No focal neurologic deficits noted. Medical Decision & Procedures ER Provider Diagnostic Interpretation: Venous ultrasound of the left lower extremity does not show any evidence for deep vein thrombosis. Pelvic ultrasound does not show any significant ovarian cysts or other acute findings. Radiologist report is as follows: EXAMINATION: PELVIC ULTRASOUND (transabdominal and endovaginal) CLINICAL HISTORY: Pelvic pain COMPARISON STUDY: 11/28/2014 FINDINGS: The uterus is surgically absent. The right ovary was not visualized. The left ovary measured 33 x 22 x 33 mm. There is a 22 mm left ovarian cyst.. There is no ultrasonographic evidence of ovarian torsion. It should be noted that ovarian torsion can be present with normal Doppler ultrasonographic findings. There was no evidence of pathologic free pelvic fluid. IMPRESSION: 1. Surgically absent uterus 2. Nonvisualization of the right ovary 3. Interval decrease in the size of the left ovarian cyst currently measuring 22 mm. Laboratory Results 10/10/16 15:10 Red Blood Count 5.02, Mean Corpuscular Volume 83.3, Mean Corpuscular Hemoglobin 29.3, Mean Corpuscular Hemoglobin Concent 35.2, Mean Platelet Volume 10.0, Neutrophils (%) (Auto) 68.0, Lymphocytes (%) (Auto) 25.2, Monocytes (%) (Auto) 4.9, Eosinophils (%) (Auto) 1.5, Basophils (%) (Auto) 0.1, Neutrophils # (Auto) 5.87, Lymphocytes # (Auto) 2.18, Monocytes # (Auto) 0.42, Eosinophils # (Auto) 0.13, Basophils # (Auto) 0.01 10/10/16 15:10 Test 10/10/16 15:09 10/10/16 15:10 Urine Color ORANGE Urine Appearance TURBID (CLEAR) Urine pH 5.0 (4.5-7.5) Urine Specific [place] 1.035 (1.000-1.030) Urine Protein 1+ (NEG) Urine Glucose (UA) 2+ (NEG) Urine Ketones TRACE (NEG) Urine Occult Blood 3+ (NEG) Urine Nitrite POS (NEG) Urine Bilirubin NEG (NEG) Urine Urobilinogen NEG (NEG) Urine Leukocyte Esterase TRACE (NEG) Urine WBC (Auto) 10-30 /hpf (0-5) Urine RBC (Auto) >30 /hpf (0-4) Urine Hyaline Casts (Auto) 10-30 /lpf (0-5) Urine Epithelial Cells (Auto) >30 /lpf (0-5) Urine Bacteria (Auto) 4+ (NEG) Urine Crystals CALCIUM OXALATE (NONE Urine Pathogenic Casts /lpf (0) Urine Yeast (Auto) (NONE PRSENT) White Blood Count 8.64 K/uL (4.8-10.8) Red Blood Count 5.02 M/uL (4.2-5.4) Hemoglobin 14.7 g/dL (12.0-16.0) Hematocrit 41.8 % (37-47) Mean Corpuscular Volume 83.3 fL (80-100) Mean Corpuscular Hemoglobin 29.3 pg (25-34) Mean Corpuscular Hemoglobin Concent 35.2 g/dl (32-36) Platelet Count 252 K/uL (130-400) Mean Platelet Volume 10.0 fL (7.4-10.4) Neutrophils (%) (Auto) 68.0 % Lymphocytes (%) (Auto) 25.2 % Monocytes (%) (Auto) 4.9 % Eosinophils (%) (Auto) 1.5 % Basophils (%) (Auto) 0.1 % Neutrophils # (Auto) 5.87 K/uL (1.4-6.5) Lymphocytes # (Auto) 2.18 K/uL (1.2-3.4) Monocytes # (Auto) 0.42 K/uL (0.11-0.59) Eosinophils # (Auto) 0.13 K/uL (0-0.5) Basophils # (Auto) 0.01 K/uL (0-0.2) RDW Standard Deviation 39.1 fL (36.4-46.3) RDW Coefficient of Variation 13.0 % (11.5-14.5) Immature Granulocyte % (Auto) 0.3 % Immature Granulocyte # (Auto) 0.03 K/uL (0.00-0.02) Anion Gap 13.0 mmol/L (3-11) Est Creatinine Clear Calc Drug Dose 102.3 ml/min Estimated GFR () 95.9 Estimated GFR (Non- 82.7 BUN/Creatinine Ratio 12.6 (10-20) Calcium Level 9.0 mg/dl (8.5-10.1) Total Bilirubin 0.5 mg/dl (0.2-1) Direct Bilirubin 0.1 mg/dl (0-0.2) Aspartate Amino Transf (AST/SGOT) 80 U/L (15-37) Alanine Aminotransferase (ALT/SGPT) 76 U/L (12-78) Alkaline Phosphatase 109 U/L (45-117) Total Creatine Kinase 21 U/L (26-192) Total Protein 8.1 gm/dl (6.4-8.2) Albumin 3.5 gm/dl (3.4-5.0) Lipase 116 U/L (73-393) The above labs were reviewed. Urinalysis is consistent with infection. Otherwise remaining labs were reviewed and grossly normal except for an elevated glucose of 263. Medications Administered Medications (Trade) Dose Ordered Sig/Moon Route Start Time Stop Time Status Last Admin Dose Admin Ketorolac Tromethamine (Toradol Inj) 30 mg NOW STAT IV 10/10/16 14:51 10/10/16 14:54 DC 10/10/16 15:09 30 MG ED Course Patient history and physical exam were performed. Nurse's notes were reviewed. Vital signs were reviewed, showing a pulse of 110. The patient is afebrile and normotensive. I also reviewed prior medical records. EMR shows that the patient was previously scheduled for a procedure for an ovarian cyst, as well as the GI treatment unit. The patient reports that her ovarian cyst went away, therefore her PURCHASING AGENT canceled her procedure. She does not know what was scheduled to be done in the first place. Regarding her GI treatment, she reports having a colonoscopy and upper endoscopy, and reports that everything was normal. She does not know who did the procedure, but was done here at [facility]. She does not know when the procedure was performed, and I am unable to find an endoscopy or colonoscopy report on the system. The patient does carry a diagnosis of ovarian cyst and diverticulosis. IV access was established and labs were drawn. The patient was administered Toradol 30 mg IVP for pain. She refused any antiemetics. Review of labs shows a urinalysis consistent with infection. Urine culture was ordered. Otherwise remaining labs were normal except for an elevated glucose, given the patient's history of diabetes. Pelvic ultrasound showed an improving left ovarian cyst. The right ovary could not be visualized. Venous ultrasound of the left lower extremity was negative for deep vein thrombosis. The case was also discussed with Dr. Jacob, ED attending physician, who agrees with workup and plan of care. The patient was advised that her symptoms are likely secondary to UTI and sciatica. She was provided a prescription for Macrobid. She was instructed to follow-up with her PCP for further management. The patient reports that she is currently on gabapentin for sciatica. She was instructed to return to the emergency department for significant worsening pain, vomiting or developing fever. The patient was happy with plan of care, and voiced understanding of all discharge instructions, rating her pain a 2 out of 10 at the conclusion of my exam. Medical Decision Workup today is most consistent with urinary tract infection. The patient has a clinical history of sciatica, an ultrasound does not show any evidence for deep vein thrombosis. The patient's abdomen is benign on exam, therefore I do not suspect a surgical abdomen. She also has no fever or leukocytosis, peritoneal signs or CVA tenderness to suggest pyelonephritis. Impression Primary Impression: UTI (urinary tract infection) Additional Impression: Sciatica Departure Information Prescriptions Nitrofurantoin Monohyd Macrocr (Macrobid) 100 Mg Cap 100 MG PO BID for 5 Days, #10 CAP Prov: Marlon Ervin PA 10/10/16 Referrals Katiuska Wallace DO (PCP) Patient Instructions My [facility] Problem Qualifiers Primary Impression: UTI (urinary tract infection) Urinary tract infection type: acute cystitis Hematuria presence: with hematuria Qualified Codes: N30.01 - Acute cystitis with hematuria
[2016-10-24] MEDS ORDERED: ATV5X PO (13:10)
[2016-10-24] MEDS ORDERED: RANI300T PO (13:10)
[2016-10-24] MEDS ORDERED: ASPI81TA28 PO (14:32)
[2016-10-24] MEDS ORDERED: POLY335019 PO (15:55)
[2016-10-24] MEDS ORDERED: IPRASOL4 INH (15:55)
[2016-10-24] MEDS ORDERED: DIPH25CA65 PO (17:33)
[2016-10-24] MEDS ORDERED: METF500T5 PO (18:01)
[2016-10-24] MEDS ORDERED: INSU1.2I SQ (18:01)
[2016-10-24] MEDS ORDERED: LSN25 PO (18:03)
[2016-10-24] MEDS ORDERED: BUPR100T8 PO (18:04)
[2016-10-24] MEDS ORDERED: VLT50 PO (18:08)
[2016-10-24] MEDS ORDERED: OLAN1TAB5 PO (18:08)
[2016-10-24] MEDS ORDERED: LORA10TA5 PO (18:08)
[2016-10-24] MEDS ORDERED: DOCU-94 PO (19:14)
[2016-10-24] MEDS ORDERED: GABA1CAP4 PO (20:30)
[2016-10-24] MEDS ORDERED: FLNIN/ NAE (20:30)
[2016-10-24] MEDS ORDERED: ADVIN25/60 INH (20:33)
[2016-10-24] MEDS ORDERED: SIMV-151 PO (20:41)
[2016-10-24] MEDS ORDERED: IBUP-1050 PO (20:41)
[2016-10-24] MEDS ORDERED: CALC500C3 PO (20:44)
[2017-04-20] MEDS ORDERED: METF1000 PO (11:05)
[2017-04-20] MEDS ORDERED: VITAMIN D3 PO (11:06)
== END 2016-10-10 17:37 | disposition home or self-care (01) ==
LOC: C.EDB 14:21 → C.EDA 17:37
DX: N30.01 Acute cystitis with hematuria (principal); M54.32 Sciatica, left side; J45.909 Unspecified asthma, uncomplicated; F32.9 Major depressive disorder, single episode, unspecified; F31.9 Bipolar disorder, unspecified; K21.9 Gastro-esophageal reflux disease without esophagitis; K29.70 Gastritis, unspecified, without bleeding; E78.5 Hyperlipidemia, unspecified; K58.9 Irritable bowel syndrome, unspecified; G43.909 Migraine, unspecified, not intractable, without status migrainosus; E66.01 Morbid (severe) obesity due to excess calories; Z86.73 Personal history of transient ischemic attack (TIA), and cerebral infarction without residual deficits; Z79.4 Long term (current) use of insulin; Z79.82 Long term (current) use of aspirin; Z79.899 Other long term (current) drug therapy; M79.605 Pain in left leg

== ENCOUNTER 2016-10-17 17:07 | Emergency (ER) | payer OTHER ==
[~2016-10-17] VITALS: Ht 160 cm; Wt 115.3 kg
[2016-10-17 17:14] VITALS: TEMP 37.1; Ht 160 cm; Wt 115.3 kg
--- NOTE | 2016-10-17 17:38 | EMERGENCY ROOM VISIT NOTE ---
History Report prepared by Fred: Ehsan Dockery Under the Supervision of: Dr. Idnia Menchaca M.D. First contact with patient: 17:29 Chief Complaint: PELVIC PAIN Stated Complaint: PELVIC PAIN History of Present Illness The patient is a 41 year old female who presents to the Emergency Room with complaints of constant pelvic pain starting last week. She currently rates her discomfort as a 5/10 in severity. The patient states that she was here last week for abdominal pain, and she was diagnosed with a UTI. The patient states that it developed into pelvic pain, and she feels like she constantly has to urinate. The patient denies any abnormal vaginal discharge. Source of History: patient Onset: a week ago Position: pelvis Symptom Intensity: 5/10 Timing: constant Associated Symptoms: + urinary symptoms Review of Systems See HPI for pertinent positives & negatives. A total of 10 systems reviewed and were otherwise negative. Past Medical & Surgical Medical Problems: (1) Asthma (2) ASTHMA, UNSPECIFIED (3) BIPOLAR DISORDER, UNSPECIFIED (4) DIAB NIKHIL WO COMPL, TYPE II OR UNSPEC TYPE, NOT UNCNTRLD (5) Diabetic neuropathy (6) DIVERTICULOSIS COLON (W/O MENT OF HEMORRHAGE) (7) DKA (diabetic ketoacidoses) (8) Endometriosis (9) ESOPHAGEAL REFLUX (10) Gallstone (11) Gastritis (12) Hiatal hernia (13) Hyperlipidemia (14) IBS (irritable bowel syndrome) (15) MIGRAINE UNSPECIFIED W/O INTRACTABLE MIGRAINE (16) MORBID OBESITY (17) Ovarian cyst (18) Sciatica (19) TIA (transient ischemic attack) (20) Vertigo Surgical Problems: (1) H/O: hysterectomy (2) History of cholecystectomy (3) TUBAL LIGATION STATUS Family History Diabetes mellitus FH: gallbladder disease FH: lung disease FH: seizures Heart disease Hypertension Social History Smoking Status: Never Smoker Alcohol Use: none Drug Use: none Marital Status: in relationship Housing Status: lives with family Occupation Status: unemployed Current/Historical Medications Scheduled Amitriptyline Hcl (Amitriptyline Hcl), 50 MG PO HS Aspirin (Aspirin Ec), 81 MG PO DAILY Bupropion (Wellbutrin Sr), 100 MG PO QPM Calcium Carbonate (Tums), 2 TABS PO PRN Diclofenac Sod (Diclofenac Sodium Dr), 50 MG PO DAILY Diphenhydramine Hcl (Benadryl Allergy), 1 CAP PO HS Fluticasone Prop/Salmeterol (Advair Diskus 250/50 60 Dose), 1 PUFF INH BID Gabapentin (Gabapentin), 300 MG PO TID Insulin Aspart Penfill (Novolog Penfill), 40 UNITS SC TIDM Insulin Glargine (Toujeo Solostar), 90 UNITS SQ DAILY Levothyroxine Sodium (Levothyroxine Sodium), 50 MCG PO DAILY Lisinopril (Lisinopril), 2.5 MG PO DAILY Metformin Hcl Er (Glucophage Er), 1,000 MG PO HS Olanzapine (Zyprexa), 20 MG PO HS Ondasetron Odt (Zofran Odt), 4 MG SL Q6H Pantoprazole (Protonix), 40 MG PO DAILY Polyethylene Glycol 3350 (Miralax), 17 GM PO DAILY Ranitidine Hcl (Zantac), 300 MG PO HS Simvastatin (Simvastatin), 20 MG PO DAILY Tamsulosin Hcl (Flomax), 0.4 MG PO DAILY Zolpidem Tartrate (Ambien), 10 MG PO HS Scheduled PRN Albuterol (Proventil Hfa), 2 PUFFS INH Q4-6HRS PRN for Asthma Docusate Sodium (Colace), 100 MG PO BID PRN for Constipation Fluticasone Propionate (Fluticasone Propionate), 2 SPRAYS ROLY DAILY PRN for Allergies Ibuprofen (Advil), 800 MG PO DAILY PRN for Headache or Pain Ipratropium-Albuterol (Duoneb), 1 TREATMENT INH Q4H PRN for PRN Loratadine (Claritin), 10 MG PO DAILY PRN for ALLERGIC REACTION Lorazepam (Lorazepam), 0.5 MG PO BID PRN for Anxiety Oxycodone/Acetaminophen 5MG/325MG (Percocet 5MG/325MG), 1-2 TABLETS PO Q4H PRN for Pain Allergies Coded Allergies: BEE STING (Verified Allergy, Intermediate, LARGE SWELLING/RED/WELT. TURNS INTO BRUISING, 10/10/16) Dust (Verified Allergy, Intermediate, ITCHY EYES/SCRATCHY THROAT. SWOLLEN EYES, 10/10/16) Morphine (Verified Allergy, Intermediate, LOCALIZED REACTION: RED/WELTS, ) POLLEN (Verified Allergy, Intermediate, ITCHY EYES/SCRATCHY THROAT. SWOLLEN EYES, 10/10/16) Adhesives (Verified Allergy, Unknown, VERY RED SKIN AND ITCHY, 10/10/16) Citalopram (Verified Allergy, Unknown, JAW PAIN AND HEADACHES, 10/10/16) Physical Exam Vital Signs Date Time Temp Pulse Resp B/P Pulse Ox O2 Delivery O2 Flow Rate FiO2 10/17/16 20:48 94 10/17/16 19:59 100 18 144/89 99 Room Air 10/17/16 17:14 37.1 119 18 106/74 96 Room Air Physical Exam CONSTITUTIONAL: Minimal distress. HEENT: No icterus, moist mucous membranes NECK: No meningismus, trachea is midline. CARDIOVASCULAR: Regular rate, normal perfusion RESPIRATORY: Unlabored breathing. Clear to auscultation. GASTROINTESTINAL: Mild lower abdominal tenderness. GENITOURINARY: No flank tenderness MUSCULOSKELETAL: Full range of motion NEUROLOGIC: No acute gross focal deficits. PSYCHIATRIC: Normal affect SKIN: Normal for ethnicity. Medical Decision & Procedures ER Provider Diagnostic Interpretation: Radiology results as stated below per my review and radiologist interpretation. CT SCAN OF THE ABDOMEN AND PELVIS WITH IV CONTRAST CLINICAL HISTORY: Pelvic pain. COMPARISON STUDY: Abdominal CT dated 04/20/2016. Pelvic ultrasound dated 10/10/2016. TECHNIQUE: Following the IV administration of 99 cc of Optiray 320, CT scan of the abdomen and pelvis is performed from the lung bases to the proximal femora. Images are reviewed in the axial, sagittal, and coronal planes. IV contrast was administered without complication. Automated dose control exposure was utilized. The examination is degraded by large body habitus, and by streak artifact from the body wall abutting the CT gantry. CT DOSE: 1491.34 mGy.cm FINDINGS: Lung bases: The heart is normal in size and without pericardial effusion. There is a small hiatal hernia. The lung bases are clear noting minimal dependent atelectasis. Liver: The contrast-enhanced liver is enlarged, measuring 21 cm in length. Liver demonstrates diffusely diminished attenuation consistent with severe hepatic steatosis. There is no intrahepatic biliary ductal dilatation. The hepatic veins and portal veins are patent. Gallbladder: Surgically absent noting clips in the gallbladder fossa. Spleen: Normal in size and attenuation. Pancreas: Unremarkable. Adrenal glands: Unremarkable. Kidneys: The contrast enhanced kidneys are normal in size. There is a 4 mm obstructing calculus at the left vesicoureteral junction seen on image #443. There is no significant associated hydronephrosis. No additional calculi are clearly seen within either kidney on this contrast-enhanced examination. The kidneys enhance symmetrically. Abdominal vasculature: The abdominal aorta is normal in course and caliber. Bowel: The small bowel and colon are normal in course and caliber. The appendix is well-visualized and normal. Peritoneum: There is no intraperitoneal free air or abdominal ascites. There is a small fat-containing umbilical hernia. Lymphadenopathy: None. Pelvic viscera: The bladder is decompressed and grossly unremarkable. The uterus is surgically absent. No adnexal lesion is seen. Small ovarian follicles are identified. Skeletal structures: No lytic or blastic lesions are seen. There are bilateral pars defects at L5. No anterolisthesis is seen at L5-S1. A disc bulge is noted at this level. IMPRESSION: 1. There is a 4 mm obstructing calculus identified at the left vesicoureteral junction. There is no significant left-sided hydroureteronephrosis. 2. Hepatomegaly and severe hepatic steatosis. Electronically signed by: Selvin Wang M.D. 10/17/2016 9:03 PM Dictated Date/Time: 10/17/2016 8:57 PM Laboratory Results 10/17/16 18:00 Red Blood Count 4.76, Mean Corpuscular Volume 82.1, Mean Corpuscular Hemoglobin 29.4, Mean Corpuscular Hemoglobin Concent 35.8, Mean Platelet Volume 9.5, Neutrophils (%) (Auto) 74.3, Lymphocytes (%) (Auto) 20.3, Monocytes (%) (Auto) 3.6, Eosinophils (%) (Auto) 1.6, Basophils (%) (Auto) 0.1, Neutrophils # (Auto) 6.96, Lymphocytes # (Auto) 1.90, Monocytes # (Auto) 0.34, Eosinophils # (Auto) 0.15, Basophils # (Auto) 0.01 10/17/16 18:00 Test 10/17/16 18:00 White Blood Count 9.37 K/uL (4.8-10.8) Red Blood Count 4.76 M/uL (4.2-5.4) Hemoglobin 14.0 g/dL (12.0-16.0) Hematocrit 39.1 % (37-47) Mean Corpuscular Volume 82.1 fL (80-100) Mean Corpuscular Hemoglobin 29.4 pg (25-34) Mean Corpuscular Hemoglobin Concent 35.8 g/dl (32-36) Platelet Count 226 K/uL (130-400) Mean Platelet Volume 9.5 fL (7.4-10.4) Neutrophils (%) (Auto) 74.3 % Lymphocytes (%) (Auto) 20.3 % Monocytes (%) (Auto) 3.6 % Eosinophils (%) (Auto) 1.6 % Basophils (%) (Auto) 0.1 % Neutrophils # (Auto) 6.96 K/uL (1.4-6.5) Lymphocytes # (Auto) 1.90 K/uL (1.2-3.4) Monocytes # (Auto) 0.34 K/uL (0.11-0.59) Eosinophils # (Auto) 0.15 K/uL (0-0.5) Basophils # (Auto) 0.01 K/uL (0-0.2) RDW Standard Deviation 39.1 fL (36.4-46.3) RDW Coefficient of Variation 12.9 % (11.5-14.5) Immature Granulocyte % (Auto) 0.1 % Immature Granulocyte # (Auto) 0.01 K/uL (0.00-0.02) Prothrombin Time 10.3 SECONDS (9.0-12.0) Prothromb Time International Ratio 1.0 (0.9-1.1) Activated Partial Thromboplast Time 23.1 SECONDS (21.0-31.0) Partial Thromboplastin Ratio 0.9 Urine Color YELLOW Urine Appearance CLOUDY (CLEAR) Urine pH 5.0 (4.5-7.5) Urine Specific Devers 1.025 (1.000-1.030) Urine Protein NEG (NEG) Urine Glucose (UA) 3+ (NEG) Urine Ketones 1+ (NEG) Urine Occult Blood NEG (NEG) Urine Nitrite NEG (NEG) Urine Bilirubin NEG (NEG) Urine Urobilinogen NEG (NEG) Urine Leukocyte Esterase NEG (NEG) Urine WBC (Auto) 5-10 /hpf (0-5) Urine RBC (Auto) 0-4 /hpf (0-4) Urine Hyaline Casts (Auto) 5-10 /lpf (0-5) Urine Epithelial Cells (Auto) >30 /lpf (0-5) Urine Bacteria (Auto) 2+ (NEG) Anion Gap 13.0 mmol/L (3-11) Est Creatinine Clear Calc Drug Dose 98.7 ml/min Estimated GFR () 90.8 Estimated GFR (Non- 78.3 BUN/Creatinine Ratio 9.0 (10-20) Calcium Level 9.0 mg/dl (8.5-10.1) Total Bilirubin 0.3 mg/dl (0.2-1) Direct Bilirubin 0.1 mg/dl (0-0.2) Aspartate Amino Transf (AST/SGOT) 46 U/L (15-37) Alanine Aminotransferase (ALT/SGPT) 43 U/L (12-78) Alkaline Phosphatase 123 U/L (45-117) Total Protein 7.6 gm/dl (6.4-8.2) Albumin 3.3 gm/dl (3.4-5.0) Lipase 139 U/L (73-393) Beta-Hydroxybutyric Acid 2.22 mg/dL (0.2-2.81) Urine Opiates Screen NEG (NEG) Urine Methadone, Qualitative NEG (NEG) Urine Barbiturates NEG (NEG) Urine Phencyclidine (PCP) Level NEG (NEG) Ur Amphetamine/Methamphetamine NEG (NEG) MDMA (Ecstasy) Screen POS (NEG) Urine Benzodiazepines Screen NEG (NEG) Urine Cocaine Metabolite NEG (NEG) Urine Marijuana (THC) NEG (NEG) Labs reviewed by ED physician. ED Course 1729: Past medical records reviewed. The patient was evaluated in room B7. A complete history and physical examination was performed. 2229: Upon reexamination the patient is feeling better. I discussed results and treatment plan with the patient. She verbalizes agreement and understanding. The patient is ready for discharge. 2230: Zofran ODT 4mg home pack PO, Percocet 5/325mg 1 homepack PO Medical Decision Differential diagnoses include but are not limited to; somatic complaints, chronic pain, intraabdominal pathology. 41-year-old presents into the emergency room for evaluation of nonspecific vague pressure in her lower abdomen patient within the left side. CT 4 mm stone. Comfortable on reexam 10:30 PM. Home packs Percocet and Zofran. Understands to follow-up with urology. Impression Primary Impression: Kidney stone Scribe Attestation The scribe's documentation has been prepared under my direction and personally reviewed by me in its entirety. I confirm that the note above accurately reflects all work, treatment, procedures, and medical decision making performed by me. Departure Information Dispostion Home / Self-Care Prescriptions Tamsulosin Hcl (FLOMAX) 0.4 Mg Cap 0.4 MG PO DAILY, #10 CAP Prov: India Menchaca MD 10/17/16 Ondasetron Odt (ZOFRAN ODT) 4 Mg Tab 4 MG SL Q6H for Nausea, #20 TAB Prov: India Menchaca MD 10/17/16 Oxycodone/Acetaminophen 5MG/325MG (PERCOCET 5MG/325MG) Tab 1-2 TABLETS PO Q4H Y for Pain, #20 TAB Prov: India Menchaca MD 10/17/16 Referrals Katiuska Wallace DO (PCP) Forms HOME CARE DOCUMENTATION FORM, IMPORTANT VISIT INFORMATION, WORK / SCHOOL INSTRUCTIONS Patient Instructions My [facility]
[2016-10-17 18:18] LABS: BASO % 0.1 %; BASO ABS # 0.01 K/uL (0-0.2); COMPLETE YES; EOS % 1.6 %; HEMATOCRIT 39.1 % (37-47); IG% 0.1 %; LYMPH % 20.3 %; MEAN CELL VOLUME 82.1 fL (80-100); MEAN CORPUSCULAR HEMOGLOBIN 29.4 pg (25-34); MEAN CORPUSCULAR HGB CONC 35.8 g/dl (32-36); MEAN PLATELET VOLUME 9.5 fL (7.4-10.4); MONO % 3.6 %; NEUT % 74.3 %; PLATELET COUNT 226 K/uL (130-400); RED BLOOD COUNT 4.76 M/uL (4.2-5.4); WHITE BLOOD COUNT 9.37 K/uL (4.8-10.8)
[2016-10-17 18:29] LABS: PARTIAL THROMBOPLASTIN RATIO 0.9
[2016-10-17 18:39] LABS: PROTHROMBIN TIME (PATIENT) 10.3 SECONDS (9.0-12.0)
[2016-10-17 18:41] LABS: CREATININE 0.9 mg/dl (0.60-1.20); POTASSIUM 4.1 mmol/L (3.5-5.1)
[2016-10-17 18:50] LABS: BETA-HYDROXYBUTYRATE 2.22 mg/dL (0.2-2.81); MANUAL MICROSCOPIC REQUIRED? NO; REVIEW REQ? NO; URINE APPEARANCE CLOUDY (CLEAR); URINE BILIRUBIN NEG (NEG); URINE COLOR YELLOW; URINE EPITHELIAL CELL AUTO >30 /lpf (0-5); URINE NITRITE NEG (NEG); URINE SPECIFIC GRAVITY 1.025 (1.000-1.030); UROBILINOGEN NEG (NEG); ZZUR CULT IF INDIC CLEAN CATCH YES
[2016-10-17 19:13] LABS: BENZODIAZEPINE, URINE NEG (NEG); COCAINE,URINE NEG (NEG); PHENCYCLIDINE, URINE NEG (NEG)
[2016-10-17] MEDS ORDERED: OPTIRAY 320 IV PRN (19:15)
--- NOTE | 2016-10-17 21:04 | DIAGNOSTIC IMAGING REPORT ---
CT SCAN OF THE ABDOMEN AND PELVIS WITH IV CONTRAST CLINICAL HISTORY: Pelvic pain. COMPARISON STUDY: Abdominal CT dated 04/20/2016. Pelvic ultrasound dated 10/10/2016. TECHNIQUE: Following the IV administration of 99 cc of Optiray 320, CT scan of the abdomen and pelvis is performed from the lung bases to the proximal femora. Images are reviewed in the axial, sagittal, and coronal planes. IV contrast was administered without complication. Automated dose control exposure was utilized. The examination is degraded by large body habitus, and by streak artifact from the body wall abutting the CT gantry. CT DOSE: 1491.34 mGy.cm FINDINGS: Lung bases: The heart is normal in size and without pericardial effusion. There is a small hiatal hernia. The lung bases are clear noting minimal dependent atelectasis. Liver: The contrast-enhanced liver is enlarged, measuring 21 cm in length. Liver demonstrates diffusely diminished attenuation consistent with severe hepatic steatosis. There is no intrahepatic biliary ductal dilatation. The hepatic veins and portal veins are patent. Gallbladder: Surgically absent noting clips in the gallbladder fossa. Spleen: Normal in size and attenuation. Pancreas: Unremarkable. Adrenal glands: Unremarkable. Kidneys: The contrast enhanced kidneys are normal in size. There is a 4 mm obstructing calculus at the left vesicoureteral junction seen on image #443. There is no significant associated hydronephrosis. No additional calculi are clearly seen within either kidney on this contrast-enhanced examination. The kidneys enhance symmetrically. Abdominal vasculature: The abdominal aorta is normal in course and caliber. Bowel: The small bowel and colon are normal in course and caliber. The appendix is well-visualized and normal. Peritoneum: There is no intraperitoneal free air or abdominal ascites. There is a small fat-containing umbilical hernia. Lymphadenopathy: None. Pelvic viscera: The bladder is decompressed and grossly unremarkable. The uterus is surgically absent. No adnexal lesion is seen. Small ovarian follicles are identified. Skeletal structures: No lytic or blastic lesions are seen. There are bilateral pars defects at L5. No anterolisthesis is seen at L5-S1. A disc bulge is noted at this level. IMPRESSION: 1. There is a 4 mm obstructing calculus identified at the left vesicoureteral junction. There is no significant left-sided hydroureteronephrosis. 2. Hepatomegaly and severe hepatic steatosis. Electronically signed by: Selvin Wang M.D. 10/17/2016 9:03 PM Dictated Date/Time: 10/17/2016 8:57 PM
[2016-10-17] MEDS ORDERED: ONDA4TAB10 SL (22:27)
[2016-10-17] MEDS ORDERED: OXYC-57 PO (22:27)
[2016-10-17] MEDS ORDERED: TAMS0.4C38 PO (22:27)
[2016-10-17] MEDS ORDERED: PERCOCET HOME PACK PO ONE (22:30)
[2016-10-17] MEDS ORDERED: ONDANSETRON HOME PACK 4MG OD TAB PO ONE (22:30)
[2016-10-17 22:55] VITALS: BP 136/79; PULSE 96; O2SAT 98
[2016-10-24] MEDS ORDERED: ATV5X PO (13:10)
[2016-10-24] MEDS ORDERED: RANI300T PO (13:10)
[2016-10-24] MEDS ORDERED: ASPI81TA28 PO (14:32)
[2016-10-24] MEDS ORDERED: IPRASOL4 INH (15:55)
[2016-10-24] MEDS ORDERED: POLY335019 PO (15:55)
[2016-10-24] MEDS ORDERED: DIPH25CA65 PO (17:33)
[2016-10-24] MEDS ORDERED: METF500T5 PO (18:01)
[2016-10-24] MEDS ORDERED: INSU1.2I SQ (18:01)
[2016-10-24] MEDS ORDERED: LSN25 PO (18:03)
[2016-10-24] MEDS ORDERED: BUPR100T8 PO (18:04)
[2016-10-24] MEDS ORDERED: LORA10TA5 PO (18:08)
[2016-10-24] MEDS ORDERED: OLAN1TAB5 PO (18:08)
[2016-10-24] MEDS ORDERED: VLT50 PO (18:08)
[2016-10-24] MEDS ORDERED: DOCU-94 PO (19:14)
[2016-10-24] MEDS ORDERED: GABA1CAP4 PO (20:30)
[2016-10-24] MEDS ORDERED: FLNIN/ NAE (20:30)
[2016-10-24] MEDS ORDERED: ADVIN25/60 INH (20:33)
[2016-10-24] MEDS ORDERED: IBUP-1050 PO (20:41)
[2016-10-24] MEDS ORDERED: SIMV-151 PO (20:41)
[2016-10-24] MEDS ORDERED: CALC500C3 PO (20:44)
[2017-04-20] MEDS ORDERED: METF1000 PO (11:05)
[2017-04-20] MEDS ORDERED: VITAMIN D3 PO (11:06)
== END 2016-10-17 22:57 | disposition home or self-care (01) ==
LOC: C.EDB 17:08
DX: N20.0 Calculus of kidney (principal); R16.0 Hepatomegaly, not elsewhere classified; K76.0 Fatty (change of) liver, not elsewhere classified; J45.909 Unspecified asthma, uncomplicated; F31.9 Bipolar disorder, unspecified; E11.40 Type 2 diabetes mellitus with diabetic neuropathy, unspecified; K57.30 Diverticulosis of large intestine without perforation or abscess without bleeding; K21.9 Gastro-esophageal reflux disease without esophagitis; K44.9 Diaphragmatic hernia without obstruction or gangrene; E78.5 Hyperlipidemia, unspecified; K58.9 Irritable bowel syndrome, unspecified; E66.01 Morbid (severe) obesity due to excess calories; Z79.899 Other long term (current) drug therapy; Z86.73 Personal history of transient ischemic attack (TIA), and cerebral infarction without residual deficits; Z90.710 Acquired absence of both cervix and uterus; Z83.3 Family history of diabetes mellitus; Z82.0 Family history of epilepsy and other diseases of the nervous system; Z82.49 Family history of ischemic heart disease and other diseases of the circulatory system; Z79.82 Long term (current) use of aspirin; Z79.4 Long term (current) use of insulin

== ENCOUNTER 2016-10-24 20:56 | Emergency (ER) | payer OTHER ==
[~2016-10-24] VITALS: Ht 160 cm; Wt 114.9 kg
[~2016-10-24 20:56] MED LIST changes: +ADVIN25/60 INH; +ASPI81TA28 PO; +ATV5X PO; +BUPR100T8 PO; +CALC500C3 PO; +DIPH25CA65 PO; +DOCU-94 PO; +FLNIN/ NAE; +GABA1CAP4 PO; +IBUP-1050 PO; +INSU1.2I SQ; +IPRASOL4 INH; +LORA10TA5 PO; +LSN25 PO; +METF500T5 PO; +OLAN1TAB5 PO; +ONDA4TAB10 SL; +OXYC-57 PO; +POLY335019 PO; +RANI300T PO; +SIMV-151 PO; +TAMS0.4C38 PO; +VLT50 PO
[2016-10-24 21:05] VITALS: TEMP 37; Ht 160 cm; Wt 114.9 kg
[2016-10-24] MEDS ORDERED: DiphenhydrAMINE HCL 50 MG/ML VIAL IV STA (21:41)
[2016-10-24] MEDS ORDERED: METOCLOPRAMIDE HCL INJ 5 MG/ML 2 ML VIAL IV STA (21:41)
[2016-10-24] MEDS ORDERED: KETOROLAC TROMETHAMINE 30 MG/ML VIAL IV STA (21:41)
[2016-10-24] MEDS ORDERED: SODIUM CHLORIDE 0.9% 1000ML 1,000 ML IV STA ×2 (21:41)
[2016-10-24] MEDS ORDERED: MULT-240 PO (22:13)
[2016-10-24] MEDS ORDERED: PRT/40 PO (22:13)
[2016-10-24] MEDS ORDERED: LEVO75TA5 PO (22:13)
[2016-10-24] MEDS ORDERED: ZOLP10TA6 PO (22:13)
[2016-10-24] MEDS ORDERED: AMT/50 PO (22:13)
[2016-10-24] MEDS ORDERED: FLM4 PO (22:13)
[2016-10-24] MEDS ORDERED: NVLGI/PEN SC (22:13)
[2016-10-24] MEDS ORDERED: ALBUAER INH (22:17)
[2016-10-24 22:29] LABS: BASO % 0.2 %; BASO ABS # 0.02 K/uL (0-0.2); COMPLETE YES; EOS % 1.6 %; HEMATOCRIT 38.9 % (37-47); IG% 0.3 %; LYMPH % 19.5 %; LYMPH ABS # 1.83 K/uL (1.2-3.4); MEAN CELL VOLUME 82.9 fL (80-100); MEAN CORPUSCULAR HEMOGLOBIN 29.4 pg (25-34); MEAN CORPUSCULAR HGB CONC 35.5 g/dl (32-36); MEAN PLATELET VOLUME 9.3 fL (7.4-10.4); NEUT % 73.4 %; PLATELET COUNT 241 K/uL (130-400); RED BLOOD COUNT 4.69 M/uL (4.2-5.4); WHITE BLOOD COUNT 9.37 K/uL (4.8-10.8)
[2016-10-24 23:07] LABS: URINE APPEARANCE TURBID (CLEAR); URINE BILIRUBIN NEG (NEG); URINE COLOR YELLOW; URINE EPITHELIAL CELL AUTO >30 /lpf (0-5); URINE NITRITE NEG (NEG); URINE SPECIFIC GRAVITY 1.031 (1.000-1.030); UROBILINOGEN NEG (NEG); ZZUR CULT IF INDIC CLEAN CATCH YES
[2016-10-24 23:13] LABS: MANUAL MICROSCOPIC REQUIRED? NO; REVIEW REQ? YES
[2016-10-24] MEDS ORDERED: CEFTRIAXONE SOD INJ 1 GM ADDVIAL IV STA (23:52)
[2016-10-25 00:21] LABS: PREG INTERNAL NEGATIVE QC NEG CLEAR BACKGROUND; PREG INTERNAL POSITIVE QC POS CONTROL LINE
[2016-10-25 00:26] LABS: BUN/CREATININE RATIO 18.5 (10-20); CALCIUM 8.3 mg/dl (8.5-10.1); CREATININE 0.71 mg/dl (0.60-1.20); POTASSIUM 3.8 mmol/L (3.5-5.1)
[2016-10-25 00:29] LABS: ALB/GLOB RATIO 0.7 (0.9-2)
--- NOTE | 2016-10-25 00:41 | EMERGENCY ROOM VISIT NOTE ---
History First contact with patient: 21:30 Chief Complaint: URINARY SYMPTOMS Stated Complaint: KIDNEY PAIN Nursing Triage Summary: Patient c/o ? UTI. States, "I just had one, but I also have a 4mm stone." Associates urinary frequency and pain after urinating. History of Present Illness The patient is a 41 year old female who presents to the Emergency Room with complaints of right flank pain that radiates to her groin with urinary symptoms for the past few days was diagnosed with kidney stone a few days ago and UTI. Patient describes the pain as aching, ranging in severity 5 out of 10. Nothing makes it better or worse. Patient has a urologist but cannot recall the name. Patient denies chest pain, dyspnea, fever, chills, nausea, vomiting, diarrhea, leg pain or weakness. Patient is tolerating by mouth fluids and food. Review of Systems See HPI for pertinent positives & negatives. A total of 10 systems reviewed and were otherwise negative. Past Medical/Surgical History Medical Problems: (1) Asthma (2) ASTHMA, UNSPECIFIED (3) BIPOLAR DISORDER, UNSPECIFIED (4) DIAB NIKHIL WO COMPL, TYPE II OR UNSPEC TYPE, NOT UNCNTRLD (5) Diabetic neuropathy (6) DIVERTICULOSIS COLON (W/O MENT OF HEMORRHAGE) (7) DKA (diabetic ketoacidoses) (8) Endometriosis (9) ESOPHAGEAL REFLUX (10) Gallstone (11) Gastritis (12) Hiatal hernia (13) Hyperlipidemia (14) IBS (irritable bowel syndrome) (15) MIGRAINE UNSPECIFIED W/O INTRACTABLE MIGRAINE (16) MORBID OBESITY (17) Ovarian cyst (18) Sciatica (19) TIA (transient ischemic attack) (20) Vertigo Surgical Problems: (1) H/O: hysterectomy (2) History of cholecystectomy (3) TUBAL LIGATION STATUS Family History Diabetes mellitus FH: gallbladder disease FH: lung disease FH: seizures Heart disease Hypertension Social History Smoking Status: Never Smoker Alcohol Use: none Drug Use: none Marital Status: in relationship Housing Status: lives with family Occupation Status: unemployed Current/Historical Medications Scheduled Amitriptyline HCl (Amitriptyline HCl), 50 MG PO HS Aspirin (Aspirin Ec), 81 MG PO DAILY Bupropion (Wellbutrin Sr), 100 MG PO QPM Diclofenac Sod (Diclofenac Sodium Dr), 50 MG PO DAILY Diphenhydramine Hcl (Benadryl Allergy), 25 MG PO HS Fluticasone Prop/Salmeterol (Advair Diskus 250/50 60 Dose), 1 PUFF INH BID Gabapentin (Gabapentin), 300 MG PO TID Insulin Aspart (Novolog Flexpen), 40 UNITS SC TIDM Insulin Glargine (Toujeo Solostar), 90 UNITS SQ DAILY Levothyroxine Sodium (Levothyroxine Sodium), 75 MCG PO DAILY Lisinopril (Lisinopril), 2.5 MG PO DAILY Metformin Hcl Er (Glucophage Er), 1,000 MG PO HS Multiple Vitamins W/ Minerals (Womens One Daily), 1 TAB PO DAILY Olanzapine (Zyprexa), 20 MG PO HS Ondasetron Odt (Zofran Odt), 4 MG SL Q6H Pantoprazole (Pantoprazole Sodium), 40 MG PO DAILY Polyethylene Glycol 3350 (Miralax), 17 GM PO DAILY Ranitidine Hcl (Zantac), 300 MG PO HS Simvastatin (Simvastatin), 20 MG PO DAILY Tamsulosin HCl (Tamsulosin HCl), 0.4 MG PO DAILY Zolpidem Tartrate (Zolpidem Tartrate), 10 MG PO HS Scheduled PRN Albuterol Sulfate (Proventil Hfa), 2 PUFFS INH Q4-6HRS PRN for Asthma Symptoms Calcium Carbonate (Tums), 1,000 MG PO UD PRN for Indigestion Docusate Sodium (Colace), 100 MG PO BID PRN for Constipation Fluticasone Propionate (Fluticasone Propionate), 2 SPRAYS ROLY DAILY PRN for Allergy Symptoms Ibuprofen (Advil), 800 MG PO DAILY PRN for Headache or Pain Ipratropium-Albuterol (Duoneb), 1 TREATMENT INH Q4H PRN for SOB/Wheezing Loratadine (Claritin), 10 MG PO DAILY PRN for Allergy Symptoms Lorazepam (Lorazepam), 0.5 MG PO DAILY PRN for Anxiety Oxycodone/Acetaminophen 5MG/325MG (Percocet 5MG/325MG), 1-2 TABLETS PO Q4H PRN for Pain Allergies Coded Allergies: BEE STING (Verified Allergy, Intermediate, LARGE SWELLING/RED/WELT. TURNS INTO BRUISING, 10/10/16) Dust (Verified Allergy, Intermediate, ITCHY EYES/SCRATCHY THROAT. SWOLLEN EYES, 10/10/16) Morphine (Verified Allergy, Intermediate, LOCALIZED REACTION: RED/WELTS, ) POLLEN (Verified Allergy, Intermediate, ITCHY EYES/SCRATCHY THROAT. SWOLLEN EYES, 10/10/16) Adhesives (Verified Allergy, Unknown, VERY RED SKIN AND ITCHY, 10/10/16) Citalopram (Verified Allergy, Unknown, JAW PAIN AND HEADACHES, 10/10/16) Physical Exam Vital Signs Date Time Temp Pulse Resp B/P Pulse Ox O2 Delivery O2 Flow Rate FiO2 10/25/16 00:05 80 20 121/81 97 Room Air 10/24/16 21:05 37.0 102 18 114/71 96 Room Air Physical Exam VITALS: Vitals are noted on the nurse's note and reviewed by myself. Vital signs stable. GENERAL: Pleasant female, in no acute distress, nondiaphoretic, well-developed well-nourished. SKIN: The skin was without rashes, erythema, edema, or bruising. There is no tenting of the skin. Capillary reflex less than 2 seconds. HEAD: Normocephalic atraumatic. EARS: External auditory canals clear, tympanic membranes pearly santizo without erythema or effusion bilaterally. EYES: Pupils equal round and reactive to light and accommodation. Conjunctivae without injection, sclerae without icterus. Extraocular movements intact. NOSE: Patent, turbinates without inflammation or discharge. MOUTH: Mucous membranes moist. Pharynx without erythema or exudate. Uvula midline. Airway patent. Tongue does not deviate. NECK: Supple without nuchal rigidity. No lymphadenopathy. No thyromegaly. Cervical spine is nontender. No JVD. HEART: Regular rate and rhythm without murmurs gallops or rubs. LUNGS: Clear to auscultation bilaterally without wheezes, rales or rhonchi. No dullness to percussion. No retractions or accessory muscle use. ABDOMEN: Positive bowel sounds x 4. Normal tympanic percussion. Soft, protuberant, obese, right CVA tenderness nontender, without masses or organomegaly. Veronica sign negative. No guarding or rebound tenderness. MUSCULOSKELETAL: No muscle atrophy, erythema, or edema noted. NEURO: Patient was alert and oriented to person place and time. Normal sensation to light and sharp touch. No focal neurological deficits. Medical Decision & Procedures Laboratory Results 10/24/16 22:16 Red Blood Count 4.69, Mean Corpuscular Volume 82.9, Mean Corpuscular Hemoglobin 29.4, Mean Corpuscular Hemoglobin Concent 35.5, Mean Platelet Volume 9.3, Neutrophils (%) (Auto) 73.4, Lymphocytes (%) (Auto) 19.5, Monocytes (%) (Auto) 5.0, Eosinophils (%) (Auto) 1.6, Basophils (%) (Auto) 0.2, Neutrophils # (Auto) 6.87, Lymphocytes # (Auto) 1.83, Monocytes # (Auto) 0.47, Eosinophils # (Auto) 0.15, Basophils # (Auto) 0.02 10/24/16 23:46 Test 10/24/16 22:00 10/24/16 22:16 10/24/16 23:46 Urine Color YELLOW Urine Appearance TURBID (CLEAR) Urine pH 5.0 (4.5-7.5) Urine Specific [place] 1.031 (1.000-1.030) Urine Protein NEG (NEG) Urine Glucose (UA) NEG (NEG) Urine Ketones TRACE (NEG) Urine Occult Blood TRACE (NEG) Urine Nitrite NEG (NEG) Urine Bilirubin NEG (NEG) Urine Urobilinogen NEG (NEG) Urine Leukocyte Esterase NEG (NEG) Urine WBC (Auto) 10-30 /hpf (0-5) Urine RBC (Auto) 0-4 /hpf (0-4) Urine Hyaline Casts (Auto) 10-30 /lpf (0-5) Urine Epithelial Cells (Auto) >30 /lpf (0-5) Urine Bacteria (Auto) 3+ (NEG) Urine Crystals See comments (NONE PRSENT) White Blood Count 9.37 K/uL (4.8-10.8) Red Blood Count 4.69 M/uL (4.2-5.4) Hemoglobin 13.8 g/dL (12.0-16.0) Hematocrit 38.9 % (37-47) Mean Corpuscular Volume 82.9 fL (80-100) Mean Corpuscular Hemoglobin 29.4 pg (25-34) Mean Corpuscular Hemoglobin Concent 35.5 g/dl (32-36) Platelet Count 241 K/uL (130-400) Mean Platelet Volume 9.3 fL (7.4-10.4) Neutrophils (%) (Auto) 73.4 % Lymphocytes (%) (Auto) 19.5 % Monocytes (%) (Auto) 5.0 % Eosinophils (%) (Auto) 1.6 % Basophils (%) (Auto) 0.2 % Neutrophils # (Auto) 6.87 K/uL (1.4-6.5) Lymphocytes # (Auto) 1.83 K/uL (1.2-3.4) Monocytes # (Auto) 0.47 K/uL (0.11-0.59) Eosinophils # (Auto) 0.15 K/uL (0-0.5) Basophils # (Auto) 0.02 K/uL (0-0.2) RDW Standard Deviation 39.6 fL (36.4-46.3) RDW Coefficient of Variation 13.2 % (11.5-14.5) Immature Granulocyte % (Auto) 0.3 % Immature Granulocyte # (Auto) 0.03 K/uL (0.00-0.02) Anion Gap 10.0 mmol/L (3-11) Est Creatinine Clear Calc Drug Dose 124.8 ml/min Estimated GFR () 120.9 Estimated GFR (Non- 104.3 BUN/Creatinine Ratio 18.5 (10-20) Calcium Level 8.3 mg/dl (8.5-10.1) Total Bilirubin 0.3 mg/dl (0.2-1) Aspartate Amino Transf (AST/SGOT) 66 U/L (15-37) Alanine Aminotransferase (ALT/SGPT) 51 U/L (12-78) Alkaline Phosphatase 97 U/L (45-117) Total Protein 7.1 gm/dl (6.4-8.2) Albumin 3.0 gm/dl (3.4-5.0) Globulin 4.1 gm/dl (2.5-4.0) Albumin/Globulin Ratio 0.7 (0.9-2) Human Chorionic Gonadotropin, Qual NEG (NEG) Medications Administered Medications (Trade) Dose Ordered Sig/Moon Route Start Time Stop Time Status Last Admin Dose Admin Sodium Chloride 1,000 ml @ 999 mls/hr Q1H1M STAT IV 10/24/16 21:41 10/24/16 22:41 DC 10/24/16 22:34 999 MLS/HR Sodium Chloride (Nss 1000ml) 1,000 ml @ 125 mls/hr Q8H STAT IV 10/24/16 21:41 10/25/16 05:40 10/25/16 00:02 125 MLS/HR Ketorolac Tromethamine (Toradol Inj) 30 mg NOW STAT IV 10/24/16 21:41 10/24/16 21:44 DC 10/24/16 22:35 30 MG Metoclopramide HCl (Reglan Inj) 10 mg NOW STAT IV 10/24/16 21:41 10/24/16 21:44 DC 10/24/16 22:35 10 MG Diphenhydramine HCl (Benadryl Inj) 12.5 mg NOW STAT IV 10/24/16 21:41 10/24/16 21:44 DC 10/24/16 22:34 12.5 MG Ceftriaxone Sodium (Rocephin Inj) 1 gm NOW STAT IV 10/24/16 23:52 10/24/16 23:53 DC 10/25/16 00:01 1 GM ED Course Prior records/ancillary studies reviewed. Triage Nursing notes reviewed. The patient's history was concerning for right flank pain. Differential diagnosis: Etiologies such as renal colic, appendicitis, diverticulitis, mesenteric ischemia, aortic pathology, infections, inflammatory bowel disease, PUD, biliary pathology, UTI, as well as others were entertained. Physical examination findings: As above. ER treatment provided: IV fluids, Toradol, Reglan, Benadryl On reassessment the patient felt better. Diagnostic interpretation by me: The labs revealed no leukocytosis. Urinalysis revealed concerns for possible infection and sent for culture. Patient was symptomatically and treated with Rocephin. Imaging studies: CT of the abdomen and pelvis was reviewed from a few days agoCT DOSE: 1491.34 mGy.cm FINDINGS: Lung bases: The heart is normal in size and without pericardial effusion. There is a small hiatal hernia. The lung bases are clear noting minimal dependent atelectasis. Liver: The contrast-enhanced liver is enlarged, measuring 21 cm in length. Liver demonstrates diffusely diminished attenuation consistent with severe hepatic steatosis. There is no intrahepatic biliary ductal dilatation. The hepatic veins and portal veins are patent. Gallbladder: Surgically absent noting clips in the gallbladder fossa. Spleen: Normal in size and attenuation. Pancreas: Unremarkable. Adrenal glands: Unremarkable. Kidneys: The contrast enhanced kidneys are normal in size. There is a 4 mm obstructing calculus at the left vesicoureteral junction seen on image #[id number]. There is no significant associated hydronephrosis. No additional calculi are clearly seen within either kidney on this contrast-enhanced examination. The kidneys enhance symmetrically. Abdominal vasculature: The abdominal aorta is normal in course and caliber. Bowel: The small bowel and colon are normal in course and caliber. The appendix is well-visualized and normal. Peritoneum: There is no intraperitoneal free air or abdominal ascites. There is a small fat-containing umbilical hernia. Lymphadenopathy: None. Pelvic viscera: The bladder is decompressed and grossly unremarkable. The uterus is surgically absent. No adnexal lesion is seen. Small ovarian follicles are identified. Skeletal structures: No lytic or blastic lesions are seen. There are bilateral pars defects at L5. No anterolisthesis is seen at L5-S1. A disc bulge is noted at this level. IMPRESSION: 1. There is a 4 mm obstructing calculus identified at the left vesicoureteral junction. There is no significant left-sided hydroureteronephrosis. 2. Hepatomegaly and severe hepatic steatosis. Electronically signed by: Selvin Wang M.D. 10/17/2016 9:03 PM US RENAL: The kidneys are unremarkable. Apparent 5 mm hyperechoic focus at the left UVJ, suspicious for stone. Right urinary jet identified. Radiologist: Josue Erazo M.D. Phone: It appears that the patient has isolated renal colic from a left sided stone the patient's pain is on the right side. Patient had urinary symptoms and was started on antibiotics. She is well-appearing. She requested to leave. Urine culture was sent. Patient was neurovascularly and neurologically intact. She did not have acute abdomen on exam. She is well-appearing. She is advised to follow-up with her urologist this week or here in the ER sooner for severe pain , fevers, vomiting, lethargy, worsening signs or symptoms or as needed. Patient and related out of the ER without any difficulties.By the evaluation outlined above emergent etiologies such as appendicitis, diverticulitis, mesenteric ischemia, aortic pathology, infections, inflammatory bowel disease, PUD, biliary pathology, as well as others were deemed relatively unlikely. Urine culture from the other day was negative. The pt informed about the findings as listed above. All questions were answered and pleased with the treatment. Return instructions were outlined and the patient was discharged in stable condition. Outpatient prescription management: Bactrim Patient was referred to her to [facility] for follow up care regarding their stone. or The patient was referred back to their primary care physician for follow-up in 2 to 3 days for a recheck of the current condition. Case reviewed with my attending. Medical Decision As above Impression Primary Impression: UTI (urinary tract infection) Departure Information Dispostion Home / Self-Care Condition GOOD Referrals Katiuska Wallace DO (PCP) Patient Instructions My [facility] Additional Instructions DO NOT drive, drink alcohol, operate machinery, or perform dangerous activities today. You were given medications in the ER that can affect your ability to safely function or operate a vehicle. Trimethoprim-Sulfamethoxazole(Bactrim DS): Take one pill twice daily for 7 days for your urine infection. All antibiotics can cause diarrhea. If this occurs and you feel worse or it does not resolve in 1-2 days follow up with your doctor or return to the Emergency Department as this could be signs of serious underlying problems. Any medication can cause an allergic reaction, stop the pills immediately and return to the ER for rash, hives, breathing difficulties, or swelling. Ibuprofen(Motrin, Advil) may be used for fever or pain. Use 600mg every six hours as needed. Take with food. Avoid using more than 2400mg in a 24 hour period. Do not use 2400mg per day for more than three consecutive days without physician direction. Prolonged inappropriate use can lead to stomach upset or ulcers. (AND/OR) Acetaminophen(Tylenol) may be used for fever or pain. Use 1000mg every six hours as needed. Avoid using more than 3000mg in a 24 hour period. Rest and drink plenty of fluids as tolerated. Slow sips of water or sports drinks are recommended instead of large amounts all at once. Continue current medications. Once your stomach is settled start with a clear liquid diet (jello, soup broth, etc.) and then advance as tolerated. You should avoid full, heavy meals for about 24 hrs from the time your symptoms resolved. Return to the ER immediately for worsening or persistent abdominal/back pain, vomiting, fevers, worsening of your condition, or as needed. Follow up with your primary physician and urologist within 2-3 days for a recheck of the current condition. Problem Qualifiers Primary Impression: UTI (urinary tract infection) Urinary tract infection type: acute cystitis Hematuria presence: with hematuria Qualified Codes: N30.01 - Acute cystitis with hematuria
[2016-10-25] MEDS ORDERED: SULF800T23 PO (00:44)
[2016-10-25] MEDS ORDERED: SEPTRA DS HOME PACK 1 EA VIAL PO ONE (00:45)
[2016-10-25 00:54] VITALS: BP 117/89; PULSE 72; O2SAT 99
--- NOTE | 2016-10-25 06:35 | DIAGNOSTIC IMAGING REPORT ---
EXAMINATION: RENAL ULTRASOUND CLINICAL HISTORY: right flank pain COMPARISON STUDY: CT scan dated 10/17/2016 FINDINGS: The right kidney measures 11.6 cm. The left kidney measures 12.4 cm. There is no evidence of hydronephrosis. There are no renal masses. There is suspected hepatic steatosis. No bladder masses were visualized. There is a 5 mm hyperechoic focus at the left ureterovesical junction, suspicious for calculus. No left ureteral jet was visualized. A right ureteral jet was identified IMPRESSION : Possible 5 mm calculus at the level of the left ureterovesical junction. No evidence of hydronephrosis. Electronically signed by: Shashi Cesar M.D. 10/25/2016 6:34 AM Dictated Date/Time: 10/25/2016 6:32 AM
[2017-04-20] MEDS ORDERED: METF1000 PO (11:05)
[2017-04-20] MEDS ORDERED: VITAMIN D3 PO (11:06)
== END 2016-10-25 00:55 | disposition home or self-care (01) ==
LOC: C.EDB 20:57 → C.EDC 10-25 00:55
DX: N30.01 Acute cystitis with hematuria (principal); J45.909 Unspecified asthma, uncomplicated; F31.9 Bipolar disorder, unspecified; E11.40 Type 2 diabetes mellitus with diabetic neuropathy, unspecified; E78.5 Hyperlipidemia, unspecified; E66.9 Obesity, unspecified; G45.9 Transient cerebral ischemic attack, unspecified; Z83.3 Family history of diabetes mellitus; Z82.0 Family history of epilepsy and other diseases of the nervous system; Z82.49 Family history of ischemic heart disease and other diseases of the circulatory system; Z79.82 Long term (current) use of aspirin; Z79.4 Long term (current) use of insulin; K76.0 Fatty (change of) liver, not elsewhere classified

== ENCOUNTER 2016-11-29 17:13 | Emergency (ER) | payer OTHER ==
[~2016-11-29] VITALS: Ht 160 cm; Wt 112.4 kg
[~2016-11-29 17:13] MED LIST changes: -AMIT50TA3 PO; +AMT/50 PO; +FLM4 PO; -INSUINJ14 SC; -LEVO50TA6 PO; +LEVO75TA5 PO; +MULT-240 PO; +NVLGI/PEN SC; -PANT40TA PO; +PRT/40 PO; -TAMS0.4C38 PO; -ZOLP10TA PO; +ZOLP10TA6 PO
[2016-11-29 17:23] VITALS: TEMP 37.2; Ht 160 cm; Wt 112.4 kg
[2016-11-29 18:14] LABS: BASO % 0.1 %; BASO ABS # 0.01 K/uL (0-0.2); COMPLETE YES; EOS % 1.5 %; HEMATOCRIT 40.7 % (37-47); IG% 0.3 %; LYMPH % 22.2 %; LYMPH ABS # 1.77 K/uL (1.2-3.4); MEAN CELL VOLUME 82.9 fL (80-100); MEAN CORPUSCULAR HEMOGLOBIN 29.3 pg (25-34); MEAN CORPUSCULAR HGB CONC 35.4 g/dl (32-36); MEAN PLATELET VOLUME 9.3 fL (7.4-10.4); MONO % 5.8 %; NEUT % 70.1 %; PLATELET COUNT 243 K/uL (130-400); RED BLOOD COUNT 4.91 M/uL (4.2-5.4); WHITE BLOOD COUNT 7.98 K/uL (4.8-10.8)
[2016-11-29 18:39] LABS: BUN/CREATININE RATIO 12.3 (10-20); CALCIUM 8.9 mg/dl (8.5-10.1); CREATININE 0.78 mg/dl (0.60-1.20); MAGNESIUM 1.7 mg/dl (1.8-2.4); POTASSIUM 3.9 mmol/L (3.5-5.1)
--- NOTE | 2016-11-29 18:52 | DIAGNOSTIC IMAGING REPORT ---
LEFT HUMERUS 2 VIEWS CLINICAL HISTORY: Left arm pain. FINDINGS: AP and lateral views of the left humerus are obtained. No prior studies are available for comparison at the time of dictation. The skeletal structures are well mineralized. No fracture is seen. The shoulder and elbow joints are grossly preserved. The overlying soft tissues are within normal limits. IMPRESSION: Unremarkable left humeral radiograph. Electronically signed by: Selvin Wang M.D. 11/29/2016 6:51 PM Dictated Date/Time: 11/29/2016 6:50 PM
--- NOTE | 2016-11-29 18:53 | DIAGNOSTIC IMAGING REPORT ---
RIGHT HUMERUS 2 VIEWS CLINICAL HISTORY: Right arm pain. FINDINGS: AP and lateral views of the right humerus are obtained. No prior studies are available for comparison at the time of dictation. The skeletal structures are well mineralized. No fracture is seen. The shoulder and elbow joints are grossly preserved. The overlying soft tissues are within normal limits. IMPRESSION: Unremarkable right humeral radiograph. Electronically signed by: Selvin Wang M.D. 11/29/2016 6:52 PM Dictated Date/Time: 11/29/2016 6:51 PM
--- NOTE | 2016-11-29 19:40 | DIAGNOSTIC IMAGING REPORT ---
ULTRASOUND BILATERAL UPPER EXTREMITY VENOUS CLINICAL HISTORY: Bilateral arm pain. COMPARISON STUDY: Left upper extremity venous ultrasound dated 01/14/2014. TECHNIQUE: Real-time, grayscale, and color Doppler sonography of the deep veins of the right and left upper extremity is performed. Compression and augmentation were utilized. FINDINGS: There is no sonographic evidence of deep venous thrombosis identified in the right or left upper extremity. The right internal jugular, axillary, and brachial veins are patent and normally compressible bilaterally. Normal venous waveforms and augmentation are seen within the right and left subclavian veins. The cephalic and basilic veins are clear in both arms. The visualized radial and ulnar veins are patent bilaterally. IMPRESSION: There is no sonographic evidence of deep venous thrombosis identified in the right or left upper extremity. Electronically signed by: Selvin Wang M.D. 11/29/2016 7:38 PM Dictated Date/Time: 11/29/2016 7:37 PM
[2016-11-29 20:11] LABS: LYME DISEASE AB IGG NEG (NEG); LYME DISEASE AB IGM NEG (NEG)
[2016-11-29] MEDS ORDERED: METF1TAB53 PO (20:13)
[2016-11-29] MEDS ORDERED: METFORMIN HCL 500 MG TABCR PO STA (20:15)
--- NOTE | 2016-11-29 20:15 | EMERGENCY ROOM VISIT NOTE ---
History First contact with patient: 17:46 Chief Complaint: ARM PAIN Stated Complaint: B/L BICEP PAIN History of Present Illness The patient is a 41 year old female who presents to the Emergency Room via private vehicle with complaints of "bilateral bicipital pain". The patient states that one week ago while trying to sleep she developed pain over the bicipital/deltoid region bilaterally. She states that she does not have it currently but when she tries to sleep, she cannot lay on that side for very long as she will develop pain in that region. She states after rollover and then after a while she'll wake up in pain. She states that the right side is worse in the left side. She states this began one week ago and denies any trauma or injury. She follows with Dr. Flores for a history of right shoulder injury. She denies any injury at this time, history of blood clots, chest pain , shortness of breath, fevers, chills. Review of Systems A complete 6-point Review of Systems was discussed with the patient, with pertinent positives and negatives listed in the History of Present Illness. All remaining Review of Systems questions can be considered negative unless otherwise specified. Past Medical/Surgical History Medical Problems: (1) Asthma (2) ASTHMA, UNSPECIFIED (3) BIPOLAR DISORDER, UNSPECIFIED (4) DIAB NIKHIL WO COMPL, TYPE II OR UNSPEC TYPE, NOT UNCNTRLD (5) Diabetic neuropathy (6) DIVERTICULOSIS COLON (W/O MENT OF HEMORRHAGE) (7) DKA (diabetic ketoacidoses) (8) Endometriosis (9) ESOPHAGEAL REFLUX (10) Gallstone (11) Gastritis (12) Hiatal hernia (13) Hyperlipidemia (14) IBS (irritable bowel syndrome) (15) MIGRAINE UNSPECIFIED W/O INTRACTABLE MIGRAINE (16) MORBID OBESITY (17) Ovarian cyst (18) Sciatica (19) TIA (transient ischemic attack) (20) Vertigo Surgical Problems: (1) H/O: hysterectomy (2) History of cholecystectomy (3) TUBAL LIGATION STATUS Family History Diabetes mellitus FH: gallbladder disease FH: lung disease FH: seizures Heart disease Hypertension Social History Smoking Status: Never Smoker Alcohol Use: none Drug Use: none Marital Status: in relationship Housing Status: lives with family Occupation Status: unemployed Current/Historical Medications Scheduled Amitriptyline HCl (Amitriptyline HCl), 50 MG PO HS Aspirin (Aspirin Ec), 81 MG PO DAILY Bupropion (Wellbutrin Sr), 100 MG PO QPM Diclofenac Sod (Diclofenac Sodium Dr), 50 MG PO DAILY Diphenhydramine Hcl (Benadryl Allergy), 25 MG PO HS Fluticasone Prop/Salmeterol (Advair Diskus 250/50 60 Dose), 1 PUFF INH BID Gabapentin (Gabapentin), 900 MG PO HS Insulin Aspart (Novolog Flexpen), 40 UNITS SC TIDM Insulin Glargine (Toujeo Solostar), 90 UNITS SQ DAILY Levothyroxine Sodium (Levothyroxine Sodium), 75 MCG PO DAILY Lisinopril (Lisinopril), 2.5 MG PO DAILY Metformin Hcl (Glucophage Ext Rel), 1,000 MG PO BID Metformin Hcl Er (Glucophage Er), 1,000 MG PO HS Multiple Vitamins W/ Minerals (Womens One Daily), 1 TAB PO DAILY Olanzapine (Zyprexa), 20 MG PO HS Ondasetron Odt (Zofran Odt), 4 MG SL Q6H Pantoprazole (Pantoprazole Sodium), 40 MG PO DAILY Polyethylene Glycol 3350 (Miralax), 17 GM PO DAILY Ranitidine Hcl (Zantac), 300 MG PO HS Simvastatin (Simvastatin), 20 MG PO DAILY Tamsulosin HCl (Tamsulosin HCl), 0.4 MG PO DAILY Zolpidem Tartrate (Zolpidem Tartrate), 10 MG PO HS Scheduled PRN Albuterol Sulfate (Proventil Hfa), 2 PUFFS INH Q4-6HRS PRN for Asthma Symptoms Calcium Carbonate (Tums), 1,000 MG PO UD PRN for Indigestion Docusate Sodium (Colace), 100 MG PO BID PRN for Constipation Fluticasone Propionate (Fluticasone Propionate), 2 SPRAYS ROLY DAILY PRN for Allergy Symptoms Ibuprofen (Advil), 800 MG PO DAILY PRN for Headache or Pain Ipratropium-Albuterol (Duoneb), 1 TREATMENT INH Q4H PRN for SOB/Wheezing Loratadine (Claritin), 10 MG PO DAILY PRN for Allergy Symptoms Lorazepam (Lorazepam), 0.5 MG PO DAILY PRN for Anxiety Oxycodone/Acetaminophen 5MG/325MG (Percocet 5MG/325MG), 1-2 TABLETS PO Q4H PRN for Pain Allergies Coded Allergies: BEE STING (Verified Allergy, Intermediate, LARGE SWELLING/RED/WELT. TURNS INTO BRUISING, 11/29/16) Dust (Verified Allergy, Intermediate, ITCHY EYES/SCRATCHY THROAT. SWOLLEN EYES, 10/10/16) Morphine (Verified Allergy, Intermediate, LOCALIZED REACTION: RED/WELTS, ) POLLEN (Verified Allergy, Intermediate, ITCHY EYES/SCRATCHY THROAT. SWOLLEN EYES, 11/29/16) Adhesives (Verified Allergy, Unknown, VERY RED SKIN AND ITCHY, 11/29/16) Citalopram (Verified Allergy, Unknown, JAW PAIN AND HEADACHES, 11/29/16) Physical Exam Vital Signs Date Time Temp Pulse Resp B/P Pulse Ox O2 Delivery O2 Flow Rate FiO2 11/29/16 20:29 86 18 118/76 95 11/29/16 18:34 88 16 110/59 96 Room Air 11/29/16 17:23 37.2 100 20 134/89 95 Room Air Physical Exam VITAL SIGNS - Vital signs and nursing notes were reviewed. Patient is afebrile , normotensive, heart rate of 100 bpm and is saturating well on room air at 95% . GENERAL -41-year-old female appearing her stated age who is in no acute distress. Communicates well with provider and answers questions appropriately. SKIN - Without rashes. HEAD - NC/AT. EYES - PERRL with EOMI bilaterally. Sclera anicteric. Palpebral conjunctiva pink and moist with no injection noted. EARS - No deformities of external structures noted on gross examination bilaterally. NOSE - Midline and without cyanosis. NECK - Neck with FROM. Supple to palpation. LUNGS - Chest wall symmetric without accessory muscle use, intercostals retractions, or central cyanosis. Normal vesicular breath sounds CTA B/L. No wheezes, rales, or rhonchi appreciated. CARDIAC - RRR with S1/S2. No murmur, rubs, or gallops appreciated. EXTREMITIES - No clubbing or peripheral cyanosis. No pretibial edema present. Vascular intact in the upper extremities. There is no tenderness to palpation of the upper extremity. +5/5 strength noted in UE/LE bilaterally. NEUROLOGIC - Cranial nerves II through XII grossly intact. Sensory intact to light touch throughout. No neurovascular deficits. Medical Decision & Procedures ER Provider Diagnostic Interpretation: RIGHT HUMERUS 2 VIEWS CLINICAL HISTORY: Right arm pain. FINDINGS: AP and lateral views of the right humerus are obtained. No prior studies are available for comparison at the time of dictation. The skeletal structures are well mineralized. No fracture is seen. The shoulder and elbow joints are grossly preserved. The overlying soft tissues are within normal limits. IMPRESSION: Unremarkable right humeral radiograph. Electronically signed by: Selvin Wang M.D. 11/29/2016 6:52 PM Dictated Date/Time: 11/29/2016 6:51 PM LEFT HUMERUS 2 VIEWS CLINICAL HISTORY: Left arm pain. FINDINGS: AP and lateral views of the left humerus are obtained. No prior studies are available for comparison at the time of dictation. The skeletal structures are well mineralized. No fracture is seen. The shoulder and elbow joints are grossly preserved. The overlying soft tissues are within normal limits. IMPRESSION: Unremarkable left humeral radiograph. Electronically signed by: Selvin Wang M.D. 11/29/2016 6:51 PM Dictated Date/Time: 11/29/2016 6:50 PM ULTRASOUND BILATERAL UPPER EXTREMITY VENOUS CLINICAL HISTORY: Bilateral arm pain. COMPARISON STUDY: Left upper extremity venous ultrasound dated 01/14/2014. TECHNIQUE: Real-time, grayscale, and color Doppler sonography of the deep veins of the right and left upper extremity is performed. Compression and augmentation were utilized. FINDINGS: There is no sonographic evidence of deep venous thrombosis identified in the right or left upper extremity. The right internal jugular, axillary, and brachial veins are patent and normally compressible bilaterally. Normal venous waveforms and augmentation are seen within the right and left subclavian veins. The cephalic and basilic veins are clear in both arms. The visualized radial and ulnar veins are patent bilaterally. IMPRESSION: There is no sonographic evidence of deep venous thrombosis identified in the right or left upper extremity. Electronically signed by: Selvin Wang M.D. 11/29/2016 7:38 PM Dictated Date/Time: 11/29/2016 7:37 PM Laboratory Results 11/29/16 18:05 Red Blood Count 4.91, Mean Corpuscular Volume 82.9, Mean Corpuscular Hemoglobin 29.3, Mean Corpuscular Hemoglobin Concent 35.4, Mean Platelet Volume 9.3, Neutrophils (%) (Auto) 70.1, Lymphocytes (%) (Auto) 22.2, Monocytes (%) (Auto) 5.8, Eosinophils (%) (Auto) 1.5, Basophils (%) (Auto) 0.1, Neutrophils # (Auto) 5.60, Lymphocytes # (Auto) 1.77, Monocytes # (Auto) 0.46, Eosinophils # (Auto) 0.12, Basophils # (Auto) 0.01 11/29/16 18:05 Test 11/29/16 18:05 White Blood Count 7.98 K/uL (4.8-10.8) Red Blood Count 4.91 M/uL (4.2-5.4) Hemoglobin 14.4 g/dL (12.0-16.0) Hematocrit 40.7 % (37-47) Mean Corpuscular Volume 82.9 fL (80-100) Mean Corpuscular Hemoglobin 29.3 pg (25-34) Mean Corpuscular Hemoglobin Concent 35.4 g/dl (32-36) Platelet Count 243 K/uL (130-400) Mean Platelet Volume 9.3 fL (7.4-10.4) Neutrophils (%) (Auto) 70.1 % Lymphocytes (%) (Auto) 22.2 % Monocytes (%) (Auto) 5.8 % Eosinophils (%) (Auto) 1.5 % Basophils (%) (Auto) 0.1 % Neutrophils # (Auto) 5.60 K/uL (1.4-6.5) Lymphocytes # (Auto) 1.77 K/uL (1.2-3.4) Monocytes # (Auto) 0.46 K/uL (0.11-0.59) Eosinophils # (Auto) 0.12 K/uL (0-0.5) Basophils # (Auto) 0.01 K/uL (0-0.2) RDW Standard Deviation 39.5 fL (36.4-46.3) RDW Coefficient of Variation 13.0 % (11.5-14.5) Immature Granulocyte % (Auto) 0.3 % Immature Granulocyte # (Auto) 0.02 K/uL (0.00-0.02) Anion Gap 10.0 mmol/L (3-11) Est Creatinine Clear Calc Drug Dose 112.1 ml/min Estimated GFR () 107.9 Estimated GFR (Non- 93.1 BUN/Creatinine Ratio 12.3 (10-20) Calcium Level 8.9 mg/dl (8.5-10.1) Magnesium Level 1.7 mg/dl (1.8-2.4) Total Creatine Kinase 28 U/L (26-192) Lyme Disease IgG Antibody NEG (NEG) Lyme Disease IgM Antibody NEG (NEG) Medications Administered Medications (Trade) Dose Ordered Sig/Moon Route Start Time Stop Time Status Last Admin Dose Admin Metformin HCl (Glucophage Extended Rel Tab) 1,000 mg NOW STAT PO 11/29/16 20:15 11/29/16 20:16 DC 11/29/16 20:27 1,000 MG Medical Decision Patient was seen and evaluated as above. She presents with transient bilateral arm pain with weightbearing while sleeping. There is no trauma to the neck. Due to no trauma to the arms and precipitate factors I did elect to establish IV access to further rule out differential diagnoses. The above workup was initiated. Radiograph and DVT ultrasound are negative. CBC unremarkable. PRP revealed elevated glucose at 298, and low magnesium at 1.7. Total creatinine kinase 28. I suspect that at this time the patient is likely experiencing a cervical radiculopathy without injury. Steroids would be indicated however due to her elevated glucose and history of diabetes do not believe this is appropriate at this time. She was given 1 metformin tablet here after verifying that she does take 1000 mg of metformin extended release twice a day. I asked her if she was compliant with her medication she notes that she has run out of her metformin for the past few days but has filled the prescription and is awaiting crop picker. I did elect to provide her a dose here, and did provide her with a prescription in case she was unable to fill her other one. At this time I do not suspect any emergent cause to the patient's pain nor does she have any neurovascular deficits. She was educated upon management, instructed to follow-up from today's symptoms, educated upon worrisome symptoms which to return and was discharged home in good condition. In the evaluation and treatment of this patient following differential diagnoses were entertained: Cervical radiculopathy, rhabdomyolysis, neurologic compromise, bony abnormality, fracture, electrolyte abnormality, among others. Impression Primary Impression: Bilateral arm pain Additional Impression: Hyperglycemia Departure Information Dispostion Home / Self-Care Condition GOOD Prescriptions Metformin Hcl (GLUCOPHAGE EXT REL) 1,000 Mg Tab 1000 MG PO BID for 30 Days, #60 TAB Prov: Vinh Florian, TOM 11/29/16 Referrals Katiuska Wallace DO (PCP) Patient Instructions My [facility] Additional Instructions You were seen in the emergency Department for bilateral arm pain. X-ray and ultrasound was normal. Your magnesium was 1.7 and low today. Your blood sugar was 298. As we discussed I have given a prescription for the metformin in case you cannot fill yours. Please follow-up with your family doctor for your arm pain as well as the diabetes. Please return to the emergency department with any new/concerning symptoms. Problem Qualifiers
[2016-11-29 20:29] VITALS: BP 118/76; PULSE 86; O2SAT 95
--- NOTE | 2016-11-29 23:26 | EMERGENCY ROOM VISIT NOTE ---
ED Visit Note First contact with patient: 17:46 I have personally evaluated and examined this patient. I agree with assessment and plan of Vinh Florian PA-C. Patient with positional discomfort bilateral upper arms worse with raising above head. No neck pain nor neuro deficits on exam. Suspect cervical radiculopathy though she is brittle diabetic who has been off her meds thus I would assuredly avoid steroids in her. Discussed symptoms requiring RTED and importance of follow up with PCP.
[2017-04-20] MEDS ORDERED: METF1000 PO (11:05)
[2017-04-20] MEDS ORDERED: VITAMIN D3 PO (11:06)
== END 2016-11-29 20:31 | disposition home or self-care (01) ==
LOC: C.EDB 17:14 → C.EDD 20:31
DX: M79.621 Pain in right upper arm (principal); M79.622 Pain in left upper arm; E11.65 Type 2 diabetes mellitus with hyperglycemia; E11.40 Type 2 diabetes mellitus with diabetic neuropathy, unspecified; E78.5 Hyperlipidemia, unspecified; K21.0 Gastro-esophageal reflux disease with esophagitis; K58.9 Irritable bowel syndrome, unspecified; J45.909 Unspecified asthma, uncomplicated; F31.9 Bipolar disorder, unspecified; N80.9 Endometriosis, unspecified; N83.209 Unspecified ovarian cyst, unspecified side; Z86.73 Personal history of transient ischemic attack (TIA), and cerebral infarction without residual deficits; Z90.710 Acquired absence of both cervix and uterus; Z90.49 Acquired absence of other specified parts of digestive tract; Z98.51 Tubal ligation status

== ENCOUNTER → 2016-12-14 | Outpatient (CLI) | payer OTHER ==
[~2016-12-14] MED LIST changes: +METF1000 PO; +METF1TAB53 PO; +PANT40TA2 PO; -PRT/40 PO; +VITAMIN D3 PO
== END | disposition home or self-care (01) ==
LOC: C.RDSM 13:08
PROVIDERS: ATTEND Orthopaedic Surgery Sports Medicine
DX: M25.511 Pain in right shoulder (principal); M25.512 Pain in left shoulder

== ENCOUNTER → 2017-01-03 | Outpatient (CLI) | payer OTHER ==
[~2017-01-03] MED LIST changes: -METF1TAB53 PO
[2017-01-03 13:28] LABS: BASO % 0.2 %; BASO ABS # 0.02 K/uL (0-0.2); COMPLETE YES; EOS % 1.9 %; HEMATOCRIT 42.5 % (37-47); IG% 0.3 %; LYMPH % 28.8 %; LYMPH ABS # 2.73 K/uL (1.2-3.4); MEAN CELL VOLUME 85.3 fL (80-100); MEAN CORPUSCULAR HEMOGLOBIN 28.7 pg (25-34); MEAN CORPUSCULAR HGB CONC 33.6 g/dl (32-36); MEAN PLATELET VOLUME 9.2 fL (7.4-10.4); MONO % 5.2 %; NEUT % 63.6 %; PLATELET COUNT 293 K/uL (130-400); RED BLOOD COUNT 4.98 M/uL (4.2-5.4); WHITE BLOOD COUNT 9.48 K/uL (4.8-10.8)
[2017-01-03 13:49] LABS: ESTIMATED AVERAGE GLUCOSE 180 mg/dl; HA1C FLAG Normal (Normal)
[2017-01-03 14:16] LABS: ALT/SGPT 51 U/L (12-78); AST/SGOT 43 U/L (15-37); BLOOD UREA NITROGEN 11 mg/dl (7-18); BUN/CREATININE RATIO 14.8 (10-20); CALCIUM 8.6 mg/dl (8.5-10.1); CARBON DIOXIDE 28 mmol/L (21-32); CHLORIDE 104 mmol/L (98-107); CHOLESTEROL 121 mg/dl (0-200); CREATININE 0.73 mg/dl (0.60-1.20); GLUCOSE,FASTING 186 mg/dl (70-99); POTASSIUM 3.7 mmol/L (3.5-5.1); SODIUM 141 mmol/L (136-145)
[2017-01-03 14:26] LABS: ALB/GLOB RATIO 0.8 (0.9-2); ALKALINE PHOSPHATASE 97 U/L (45-117); CHOLESTEROL/HDL RATIO 3.3; HDL CHOLESTEROL 37 mg/dl; LDL CHOLESTEROL CALCULATED 44 mg/dl; TRIGLYCERIDES 201 mg/dl (0-150); VERY LOW DENSITY LIPOPROT CALC 40 mg/dl
== END | disposition home or self-care (01) ==
LOC: C.LAB1850 12:41
PROVIDERS: ATTEND Physician Assistant
DX: Z79.899 Other long term (current) drug therapy (principal)

== ENCOUNTER 2017-03-28 03:52 | Emergency (ER) | payer OTHER ==
[~2017-03-28] VITALS: Ht 160 cm; Wt 116.7 kg
[~2017-03-28 03:52] MED LIST changes: -METF1000 PO; -PANT40TA2 PO; +PRT/40 PO; -VITAMIN D3 PO
[2017-03-28 04:00] VITALS: TEMP 37; Ht 160 cm; Wt 116.7 kg
--- NOTE | 2017-03-28 04:48 | EMERGENCY ROOM VISIT NOTE ---
History Report prepared by Fred: Ehsan Dockery Under the Supervision of: Dr. Antonia Michelle D.O. First contact with patient: 04:17 Chief Complaint: HYPERGLYCEMIA Stated Complaint: SUGAR IN THE 200'S,TOOK FAST ACTING INSULIN TWICE History of Present Illness The patient is a 41 year old female who presents to the Emergency Room with complaints of constant light headedness secondary to hyperglycemia occurring around 1800 yesterday. The patient states that before dinner she took her blood sugar, and it as 190, so she took some insulin before eating a [employer] sandwich. She states that she went to bed later, and she felt weird and she took her blood sugar, and it was 176. Then she took 40 units of insulin because she ate four chocolate chip cookies. The patient states that she does not use a sliding scale because it is too difficult. She states that she has not been feeling well this past week. She additionally states that she feels constipated, though she is urinating well, and she does not have any abdominal pain. Source of History: patient Onset: 1800 Position: other (global) Quality: other (light headedness) Timing: constant Associated Symptoms: No abdominal pain, No urinary symptoms Note: Associated symptoms: Constipation Review of Systems See HPI for pertinent positives & negatives. A total of 10 systems reviewed and were otherwise negative. Past Medical & Surgical Medical Problems: (1) Asthma (2) ASTHMA, UNSPECIFIED (3) BIPOLAR DISORDER, UNSPECIFIED (4) DIAB NIKHIL WO COMPL, TYPE II OR UNSPEC TYPE, NOT UNCNTRLD (5) Diabetic neuropathy (6) DIVERTICULOSIS COLON (W/O MENT OF HEMORRHAGE) (7) DKA (diabetic ketoacidoses) (8) Endometriosis (9) ESOPHAGEAL REFLUX (10) Gallstone (11) Gastritis (12) Hiatal hernia (13) Hyperlipidemia (14) IBS (irritable bowel syndrome) (15) MIGRAINE UNSPECIFIED W/O INTRACTABLE MIGRAINE (16) MORBID OBESITY (17) Ovarian cyst (18) Sciatica (19) TIA (transient ischemic attack) (20) Vertigo Surgical Problems: (1) H/O: hysterectomy (2) History of cholecystectomy (3) TUBAL LIGATION STATUS Family History Diabetes mellitus FH: gallbladder disease FH: lung disease FH: seizures Heart disease Hypertension Social History Smoking Status: Never Smoker Alcohol Use: none Drug Use: none Marital Status: in relationship Housing Status: lives with family Occupation Status: unemployed Current/Historical Medications Scheduled Amitriptyline HCl (Amitriptyline HCl), 50 MG PO HS Aspirin (Aspirin Ec), 81 MG PO DAILY Bupropion (Wellbutrin Sr), 100 MG PO QPM Diclofenac Sod (Diclofenac Sodium Dr), 50 MG PO DAILY Diphenhydramine Hcl (Benadryl Allergy), 25 MG PO HS Fluticasone Prop/Salmeterol (Advair Diskus 250/50 60 Dose), 1 PUFF INH BID Gabapentin (Gabapentin), 900 MG PO HS Insulin Aspart (Novolog Flexpen), 40-50 UNITS SC TIDM Insulin Glargine (Toujeo Solostar), 80 UNITS SQ DAILY Levothyroxine Sodium (Levothyroxine Sodium), 75 MCG PO DAILY Lisinopril (Lisinopril), 2.5 MG PO DAILY Metformin Hcl Er (Glucophage Er), 1,000 MG PO HS Multiple Vitamins W/ Minerals (Womens One Daily), 1 TAB PO DAILY Olanzapine (Zyprexa), 20 MG PO HS Pantoprazole (Pantoprazole Sodium), 40 MG PO DAILY Polyethylene Glycol 3350 (Miralax), 17 GM PO DAILY Ranitidine Hcl (Zantac), 300 MG PO HS Simvastatin (Simvastatin), 20 MG PO DAILY Tamsulosin HCl (Tamsulosin HCl), 0.4 MG PO DAILY Zolpidem Tartrate (Zolpidem Tartrate), 10 MG PO HS Scheduled PRN Albuterol Sulfate (Proventil Hfa), 2 PUFFS INH Q4-6HRS PRN for Asthma Symptoms Docusate Sodium (Colace), 100 MG PO BID PRN for Constipation Fluticasone Propionate (Fluticasone Propionate), 2 SPRAYS ROLY DAILY PRN for Allergy Symptoms Ibuprofen (Advil), 800 MG PO DAILY PRN for Headache or Pain Ipratropium-Albuterol (Duoneb), 1 TREATMENT INH Q4H PRN for SOB/Wheezing Loratadine (Claritin), 10 MG PO DAILY PRN for Allergy Symptoms Lorazepam (Lorazepam), 0.5 MG PO DAILY PRN for Anxiety Allergies Coded Allergies: BEE STING (Verified Allergy, Intermediate, LARGE SWELLING/RED/WELT. TURNS INTO BRUISING, 03/28/17) Dust (Verified Allergy, Intermediate, ITCHY EYES/SCRATCHY THROAT. SWOLLEN EYES, 03/28/17) Morphine (Verified Allergy, Intermediate, LOCALIZED REACTION: RED/WELTS, ) POLLEN (Verified Allergy, Intermediate, ITCHY EYES/SCRATCHY THROAT. SWOLLEN EYES, 03/28/17) Adhesives (Verified Allergy, Unknown, VERY RED SKIN AND ITCHY, 03/28/17) Citalopram (Verified Allergy, Unknown, JAW PAIN AND HEADACHES, 03/28/17) Physical Exam Vital Signs Date Time Temp Pulse Resp B/P (MAP) Pulse Ox O2 Delivery O2 Flow Rate FiO2 03/28/17 08:31 96 16 109/73 97 03/28/17 05:48 101 18 104/75 96 Room Air 03/28/17 04:00 37.0 121 18 100/73 96 Room Air Physical Exam HEENT: Head - normocephalic and atraumatic Pupils are equal, round, and reactive to light. Extraocular eye muscles are intact, and sclera are anicteric. Nose - moist nasal mucosa without discharge. Mouth - moist buccal mucosa. Oropharynx is nonerythematous and there is no tonsillar exudate or edema noted. Neck: Supple; no JVD, nuchal rigidity, cervical lymphadenopathy. Heart: Regular rate and rhythm. There is a normal S1 and S2 with no murmurs, clicks, or gallops appreciated. Lungs: Clear to auscultation bilaterally with no wheezes, rales, or rhonchi. Abdomen: Soft, completely nontender, nondistended, with good bowel sounds. There are no palpable pulsatile masses or hepatosplenomegaly. There is no guarding, rigidity, or rebound noted. Extremities: No evidence of cyanosis, clubbing, or edema. There are easily palpable peripheral pulses. Skin: warm and dry with good turgor and no rashes. Medical Decision & Procedures Laboratory Results 03/28/17 04:55 Red Blood Count 4.83, Mean Corpuscular Volume 86.1, Mean Corpuscular Hemoglobin 28.2, Mean Corpuscular Hemoglobin Concent 32.7, Mean Platelet Volume 9.4, Neutrophils (%) (Auto) 68.3, Lymphocytes (%) (Auto) 22.0, Monocytes (%) (Auto) 7.2, Eosinophils (%) (Auto) 2.0, Basophils (%) (Auto) 0.1, Neutrophils # (Auto) 8.68, Lymphocytes # (Auto) 2.80, Monocytes # (Auto) 0.92, Eosinophils # (Auto) 0.25, Basophils # (Auto) 0.01 03/28/17 04:55 Test 03/28/17 04:55 03/28/17 08:26 White Blood Count 12.71 K/uL (4.8-10.8) Red Blood Count 4.83 M/uL (4.2-5.4) Hemoglobin 13.6 g/dL (12.0-16.0) Hematocrit 41.6 % (37-47) Mean Corpuscular Volume 86.1 fL (80-100) Mean Corpuscular Hemoglobin 28.2 pg (25-34) Mean Corpuscular Hemoglobin Concent 32.7 g/dl (32-36) Platelet Count 288 K/uL (130-400) Mean Platelet Volume 9.4 fL (7.4-10.4) Neutrophils (%) (Auto) 68.3 % Lymphocytes (%) (Auto) 22.0 % Monocytes (%) (Auto) 7.2 % Eosinophils (%) (Auto) 2.0 % Basophils (%) (Auto) 0.1 % Neutrophils # (Auto) 8.68 K/uL (1.4-6.5) Lymphocytes # (Auto) 2.80 K/uL (1.2-3.4) Monocytes # (Auto) 0.92 K/uL (0.11-0.59) Eosinophils # (Auto) 0.25 K/uL (0-0.5) Basophils # (Auto) 0.01 K/uL (0-0.2) RDW Standard Deviation 42.4 fL (36.4-46.3) RDW Coefficient of Variation 13.4 % (11.5-14.5) Immature Granulocyte % (Auto) 0.4 % Immature Granulocyte # (Auto) 0.05 K/uL (0.00-0.02) Anion Gap 6.0 mmol/L (3-11) Est Creatinine Clear Calc Drug Dose 137.6 ml/min Estimated GFR () 126.0 Estimated GFR (Non- 108.7 BUN/Creatinine Ratio 28.9 (10-20) Calcium Level 9.1 mg/dl (8.5-10.1) Total Bilirubin 0.3 mg/dl (0.2-1) Aspartate Amino Transf (AST/SGOT) 25 U/L (15-37) Alanine Aminotransferase (ALT/SGPT) 35 U/L (12-78) Alkaline Phosphatase 105 U/L (45-117) Total Protein 7.1 gm/dl (6.4-8.2) Albumin 3.4 gm/dl (3.4-5.0) Globulin 3.7 gm/dl (2.5-4.0) Albumin/Globulin Ratio 0.9 (0.9-2) Bedside Glucose 145 mg/dl (70-90) Laboratory results per my review. ED Course 0417: Past medical records reviewed. The patient was evaluated in room B9. A complete history and physical exam was performed. An IV lock was initiated and labs were drawn as above. Her blood sugar was monitored closely over 3-4 hours here in the emergency department. 0718: I reevaluated the patient, and she was eating. Her blood sugar was 63 prior to breakfast, and she currently has no symptoms. 0758: The patient's blood sugar was 108. She is ready for discharge Medical Decision The patient is a 41 year old female who presents to the ED with light headedness. Differential diagnosis includes hyperglycemia, DKA, hypoglycemia, and dehydration. Lab results show: White cell count of 12.7, stable H&H, BUN 19, creatinine 0.6, glucose 200 then 151 then 77 and lastly 108, LFTs are normal. This is a 41 of them a patient who is an insulin-dependent diabetic. The patient does seem to adjust her insulin depending on what she has eaten. However, I am not convinced that she is doing this accurately were following a specific sliding scale. It seems that she overdosed herself on insulin tonight. While here in the emergency department, her blood sugar dropped precipitously. She was able to eat and bring it back up. I strongly encouraged her to take her insulin specifically as directed and follow up closely with her rn patient care. Medication Reconcilliation Current Medication List: was personally reviewed by me Blood Pressure Screening Patient's blood pressure: Normal blood pressure Impression Primary Impression: Insulin overdose Scribe Attestation The scribe's documentation has been prepared under my direction and personally reviewed by me in its entirety. I confirm that the note above accurately reflects all work, treatment, procedures, and medical decision making performed by me. Departure Information Dispostion Home / Self-Care Referrals Katiuska Wallace DO (PCP) Forms HOME CARE DOCUMENTATION FORM, IMPORTANT VISIT INFORMATION, WORK / SCHOOL INSTRUCTIONS Patient Instructions My [facility] Additional Instructions Follow a strict diet. Give insulin as directed to cover the sugars. Problem Qualifiers Primary Impression: Insulin overdose Encounter type: initial encounter Injury intent: accidental or unintentional Qualified Codes: T38.3X1A - Poisoning by insulin and oral hypoglycemic [antidiabetic] drugs, accidental (unintentional), initial encounter
[2017-03-28 05:09] LABS: BASO % 0.1 %; BASO ABS # 0.01 K/uL (0-0.2); COMPLETE YES; HEMATOCRIT 41.6 % (37-47); IG% 0.4 %; MEAN CELL VOLUME 86.1 fL (80-100); MEAN CORPUSCULAR HEMOGLOBIN 28.2 pg (25-34); MEAN CORPUSCULAR HGB CONC 32.7 g/dl (32-36); MEAN PLATELET VOLUME 9.4 fL (7.4-10.4); MONO % 7.2 %; NEUT % 68.3 %; PLATELET COUNT 288 K/uL (130-400); RED BLOOD COUNT 4.83 M/uL (4.2-5.4); WHITE BLOOD COUNT 12.71 K/uL (4.8-10.8)
[2017-03-28 05:26] LABS: BUN/CREATININE RATIO 28.9 (10-20); CALCIUM 9.1 mg/dl (8.5-10.1); CREATININE 0.65 mg/dl (0.60-1.20); POTASSIUM 3.7 mmol/L (3.5-5.1)
[2017-03-28 05:29] LABS: ALB/GLOB RATIO 0.9 (0.9-2)
[2017-03-28 08:31] VITALS: BP 109/73; PULSE 96; O2SAT 97
[2017-04-20] MEDS ORDERED: METF1000 PO (11:05)
[2017-04-20] MEDS ORDERED: VITAMIN D3 PO (11:06)
== END 2017-03-28 08:32 | disposition home or self-care (01) ==
LOC: C.EDB 03:54
DX: T38.3X1A Poisoning by insulin and oral hypoglycemic [antidiabetic] drugs, accidental (unintentional), initial encounter (principal); E11.65 Type 2 diabetes mellitus with hyperglycemia; K59.00 Constipation, unspecified; E11.40 Type 2 diabetes mellitus with diabetic neuropathy, unspecified; J45.909 Unspecified asthma, uncomplicated; F31.9 Bipolar disorder, unspecified; K57.30 Diverticulosis of large intestine without perforation or abscess without bleeding; N80.9 Endometriosis, unspecified; K21.9 Gastro-esophageal reflux disease without esophagitis; K44.9 Diaphragmatic hernia without obstruction or gangrene; E78.5 Hyperlipidemia, unspecified; K58.9 Irritable bowel syndrome, unspecified; E66.01 Morbid (severe) obesity due to excess calories; N83.209 Unspecified ovarian cyst, unspecified side; Z90.710 Acquired absence of both cervix and uterus; Z79.82 Long term (current) use of aspirin; Z79.4 Long term (current) use of insulin; Z79.84 Long term (current) use of oral hypoglycemic drugs; Z83.3 Family history of diabetes mellitus; Z82.0 Family history of epilepsy and other diseases of the nervous system; Z82.49 Family history of ischemic heart disease and other diseases of the circulatory system

== ENCOUNTER → 2017-05-01 | Day surgery (SDC) | payer OTHER ==
[2017-04-20 11:06] VITALS: Ht 160 cm; Wt 113.6 kg
[~2017-05-01] VITALS: Ht 160 cm; Wt 113.6 kg
[~2017-05-01] MED LIST changes: -CALC500C3 PO; -FLM4 PO; +METF1000 PO; -METF500T5 PO; +MIDAZOLAM HCL 1 MG/ML 2ML VIAL ONE; -ONDA4TAB10 SL; -OXYC-57 PO; +PROPOFOL IV EMULSION 10 MG/ML 20 ML VIAL IV ONE; +SODIUM CHLORIDE 0.9% 500ML 500 ML IV ONE; +VITAMIN D3 PO
--- NOTE | 2017-05-01 09:32 | Endo History and Physical ---
History & Physical Date of Service: May 01, 2017. Chief Complaint: RUQ abdominal pain Referring Physician: Mila Guzman History of Present Illness 41 yo CF who presents for EGD secondary to RUQ abdominal pain. Past Medical History Diabetes, Asthma, Reflux, CVA/TIA Past Surgical History Hx Cardiac Surgery: No Hx Internal Defibrillator: No Hx Pacemaker: No Hx Abdominal Surgery: Yes (TUBAL LIGATION, KARTIK, BRENNAN) Hx of Implantable Prosthesis: No Hx Post-Op Nausea and Vomiting: No Hx Cancer Surgery: No Hx Thoracic Surgery: No Hx Orthopedic: Yes (RT KNEE SX, RT SHOULDER SX) Hx Urinary Tract Surgery: No Family History Polyp Social History Smoking Status: Never Smoker Hx Substance Use: No (HX OF DRUG USE) Hx Alcohol Use: No Allergies Coded Allergies: BEE STING (Verified Allergy, Intermediate, LARGE SWELLING/RED/WELT. TURNS INTO BRUISING, 04/20/17) Dust (Verified Allergy, Intermediate, ITCHY EYES/SCRATCHY THROAT. SWOLLEN EYES, 04/20/17) Morphine (Verified Allergy, Intermediate, LOCALIZED REACTION: RED/WELTS, ) POLLEN (Verified Allergy, Intermediate, ITCHY EYES/SCRATCHY THROAT. SWOLLEN EYES, 04/20/17) Adhesives (Verified Allergy, Unknown, VERY RED SKIN AND ITCHY, 04/20/17) Citalopram (Verified Allergy, Unknown, JAW PAIN AND HEADACHES, 04/20/17) Current Medications Reported Home Medications Medications Dose Route/Sig Max Daily Dose Days Date Category Dose Instructions [Vitamin D3] 1 Tab PO QPM 04/20/17 Reported Glucophage (Metformin Hcl) 1,000 Mg Tab 2 Tab PO QPM 04/20/17 Reported Proventil Hfa (Albuterol Sulfate) 108 Mcg/Act Aer 2 Puffs INH Q4-6HRS PRN 10/24/16 Reported Amitriptyline HCl 50 Mg Tab 50 Mg PO HS 10/24/16 Reported Zolpidem Tartrate 10 Mg Tab 10 Mg PO HS 10/24/16 Reported Womens One Daily (Multiple Vitamins W/ Minerals) 1 Tab Tab 1 Tab PO QPM 10/24/16 Reported Novolog Flexpen (Insulin Aspart) 100 Units/Ml Inj 40-50 Units SC TIDM 10/24/16 Reported THREE TIMES DAILY WITH MEALS AND DIRECTED FOR SNACKS Pantoprazole Sodium (Pantoprazole) 40 Mg Tab 40 Mg PO DAILY PRN 10/24/16 Reported Levothyroxine Sodium 75 Mcg Tab 75 Mcg PO QAM 10/24/16 Reported Toucareno Solostar (Insulin Glargine) 300 Unit/Ml Inj 80 Units SQ HS 05/07/16 Reported Simvastatin 20 Mg Tab 20 Mg PO HS 04/20/16 Reported Advil (Ibuprofen) 200 Mg Tab 800 Mg PO DAILY PRN 04/20/16 Reported Benadryl Allergy (Diphenhydramine Hcl) 25 Mg Cap 25 Mg PO HS PRN 01/25/16 Reported Duoneb (Ipratropium-Albuterol) 3 Ml Nebu 1 Treatment INH Q4H PRN 04/08/15 Reported Miralax (Polyethylene Glycol 3350) 1 Pow Pow 17 Gm PO HS 04/08/15 Reported Claritin (Loratadine) 10 Mg Tab 10 Mg PO DAILY PRN 03/30/[address] (Diclofenac Sod) 50 Mg Tabec 50 Mg PO HS 03/30/15 Reported Zyprexa (Olanzapine) 20 Mg Tab 20 Mg PO HS 03/30/15 Reported Wellbutrin Sr (Bupropion HCl) 100 Mg Ertab 100 Mg PO QPM 03/30/15 Reported Lisinopril 2.5 Mg Tab 2.5 Mg PO HS 03/30/15 Reported Aspirin Ec (Aspirin) 81 Mg Tab 81 Mg PO HS 03/23/15 Reported Colace (Docusate Sodium) 100 Mg Cap 100 Mg PO BID PRN 03/04/15 Reported Zantac (Ranitidine Hcl) 300 Mg Tab 300 Mg PO HS 09/18/14 Reported Lorazepam 0.5 Mg Tab 0.5 Mg PO DAILY PRN 09/18/14 Reported Advair Diskus 250/50 60 Dose (Fluticasone Prop/Salmeterol) 1 Ea Aerp 1 Puff INH BID 06/27/14 Reported Gabapentin 300 Mg Cap 900 Mg PO HS 06/27/14 Reported Fluticasone Propionate 120 Sprays/6000 Mcg Inha 2 Sprays ROLY DAILY PRN 06/27/14 Reported Vital Signs Weight (Kilograms): 113.64 Height (Feet): 5 Height (Inches): 3 Physical Exam General Appearance: WD/WN, no apparent distress Respiratory/Chest: Auscultation: breath sounds normal Cardiovascular: Heart Auscultation: RRR Abdomen: Bowel Sounds: normal Inspection & Palpation: soft, non-distended, no tenderness, guarding & rebound Assessment and Plan Assessment: 41 yo CF who presents for colonoscopy secondary to RUQ abdominal pain. Plan: Proceed with colonoscopy.
--- NOTE | 2017-05-01 10:10 | Discharge Instructions ---
Endoscopy Patient Instructions Date / Procedure(s) Performed May 01, 2017. Colonoscopy Allergy Information Coded Allergies: BEE STING (Verified Allergy, Intermediate, LARGE SWELLING/RED/WELT. TURNS INTO BRUISING, 04/20/17) Dust (Verified Allergy, Intermediate, ITCHY EYES/SCRATCHY THROAT. SWOLLEN EYES, 04/20/17) Morphine (Verified Allergy, Intermediate, LOCALIZED REACTION: RED/WELTS, ) POLLEN (Verified Allergy, Intermediate, ITCHY EYES/SCRATCHY THROAT. SWOLLEN EYES, 04/20/17) Adhesives (Verified Allergy, Unknown, VERY RED SKIN AND ITCHY, 04/20/17) Citalopram (Verified Allergy, Unknown, JAW PAIN AND HEADACHES, 04/20/17) Discharge Date / Findings May 01, 2017. Normal colonoscopy Medication Instructions Stopped Medication(s): stopped Metformin Monday OK to resume all medications today as prescribed Reported Home Medications Medications Dose Route/Sig Max Daily Dose Days Date Category Dose Instructions [Vitamin D3] 1 Tab PO QPM 04/20/17 Reported Glucophage (Metformin Hcl) 1,000 Mg Tab 2 Tab PO QPM 04/20/17 Reported Proventil Hfa (Albuterol Sulfate) 108 Mcg/Act Aer 2 Puffs INH Q4-6HRS PRN 10/24/16 Reported Amitriptyline HCl 50 Mg Tab 50 Mg PO HS 10/24/16 Reported Zolpidem Tartrate 10 Mg Tab 10 Mg PO HS 10/24/16 Reported Womens One Daily (Multiple Vitamins W/ Minerals) 1 Tab Tab 1 Tab PO QPM 10/24/16 Reported Novolog Flexpen (Insulin Aspart) 100 Units/Ml Inj 40-50 Units SC TIDM 10/24/16 Reported THREE TIMES DAILY WITH MEALS AND DIRECTED FOR SNACKS Pantoprazole Sodium (Pantoprazole) 40 Mg Tab 40 Mg PO DAILY PRN 10/24/16 Reported Levothyroxine Sodium 75 Mcg Tab 75 Mcg PO QAM 10/24/16 Reported Toujeo Solostar (Insulin Glargine) 300 Unit/Ml Inj 80 Units SQ HS 05/07/16 Reported Simvastatin 20 Mg Tab 20 Mg PO HS 04/20/16 Reported Advil (Ibuprofen) 200 Mg Tab 800 Mg PO DAILY PRN 04/20/16 Reported Benadryl Allergy (Diphenhydramine Hcl) 25 Mg Cap 25 Mg PO HS PRN 01/25/16 Reported Duoneb (Ipratropium-Albuterol) 3 Ml Nebu 1 Treatment INH Q4H PRN 04/08/15 Reported Miralax (Polyethylene Glycol 3350) 1 Pow Pow 17 Gm PO HS 04/08/15 Reported Claritin (Loratadine) 10 Mg Tab 10 Mg PO DAILY PRN 03/30/[address] (Diclofenac Sod) 50 Mg Tabec 50 Mg PO HS 03/30/15 Reported Zyprexa (Olanzapine) 20 Mg Tab 20 Mg PO HS 03/30/15 Reported Wellbutrin Sr (Bupropion HCl) 100 Mg Ertab 100 Mg PO QPM 03/30/15 Reported Lisinopril 2.5 Mg Tab 2.5 Mg PO HS 03/30/15 Reported Aspirin Ec (Aspirin) 81 Mg Tab 81 Mg PO HS 03/23/15 Reported Colace (Docusate Sodium) 100 Mg Cap 100 Mg PO BID PRN 03/04/15 Reported Zantac (Ranitidine Hcl) 300 Mg Tab 300 Mg PO HS 09/18/14 Reported Lorazepam 0.5 Mg Tab 0.5 Mg PO DAILY PRN 09/18/14 Reported Advair Diskus 250/50 60 Dose (Fluticasone Prop/Salmeterol) 1 Ea Aerp 1 Puff INH BID 06/27/14 Reported Gabapentin 300 Mg Cap 900 Mg PO HS 06/27/14 Reported Fluticasone Propionate 120 Sprays/6000 Mcg Inha 2 Sprays ROLY DAILY PRN 06/27/14 Reported Provider Instructions Activity Restrictions - No exercising or heavy lifting for 24 hours. - Do not drink alcohol the day of the procedure. - Do not drive a car or operate machinery until the day after the procedure. - Do not make any important decisions or sign important papers in 24 hours after the procedure. Following Day: - Return to full activity which may include returning to work/school. Diet Start your diet with liquids and light foods (jello, soup, juice, toast). Then eat your usual diet if not nauseated. Treatment For Common After Affects For mild abdominal pain, bloating, or excessive gas: - Rest - Eat lightly - Lie on right side Follow-Up Information Follow-up with Mila BARAHONA as scheduled Anesthesia Information What You Should Know You have had a procedure that required some medicine to reduce anxiety and discomfort. This treatment is called moderate sedation. After receiving the treatment, you may be sleepy, but you will be able to breathe on your own. The effects of the treatment may last for several hours. Follow these instructions along with Activity/Diet recommendations noted above: * Do NOT do anything where dizziness or clumsiness would be dangerous. * Rest quietly at home today, then you can be up and about tomorrow. * Have a responsible person stay with you the rest of today. * You may have had an I.V. today. If so, you may take the dressing off later today. Recommendations Call your doctor if: * Trouble breathing * Continuous vomiting for more than 24 hours * Temperature above 101 degrees * Severe abdominal pain or bloating * Pain not relieved by pain medicine ordered * There is increased drainage or redness from any incision * A large amount of rectal bleeding greater than 2-3 tablespoons. (If you had a polyp/s removed or have hemorrhoids, a small amount of blood - from the rectum is to be expected.) * You have any unanswered questions or concerns. IN THE EVENT OF A SERIOUS EMERGENCY, GO TO THE NEAREST EMERGENCY ROOM Your discharge instructions were prepared by provider Matty Lindsey. Patient Instructions Signature Page Vale Ramos Patient (or Guardian) Signature/Date: I have read and understand the instructions given to me by my caregivers. Caregiver/RN/Doctor Signature/Date: The above-named patient and/or guardian has received patient instructions on this date. + Original Patient Signature Page (only) stays with chart. Please make copy for patient.
--- NOTE | 2017-05-01 10:14 | GI REPORT ---
Procedure Date: 05/01/2017 9:51 AM Procedure: Colonoscopy Indications: Abdominal pain in the right upper quadrant Medicines: Monitored Anesthesia Care Complications: No immediate complications. Estimated Blood Loss: Estimated blood loss: none. Procedure: Pre-Anesthesia Assessment: - Prior to the procedure, a History and Physical was performed, and patient medications and allergies were reviewed. The patient's tolerance of previous anesthesia was also reviewed. The risks and benefits of the procedure and the sedation options and risks were discussed with the patient. All questions were answered, and informed consent was obtained. Prior Anticoagulants: The patient has taken aspirin, last dose was 1 day prior to procedure. ASA Grade Assessment: II - A patient with mild systemic disease. After reviewing the risks and benefits, the patient was deemed in satisfactory condition to undergo the procedure. After I obtained informed consent, the scope was passed under direct vision. Throughout the procedure, the patient's blood pressure, pulse, and oxygen saturations were monitored continuously. The Scope was introduced through the anus and advanced to the terminal ileum. The colonoscopy was performed without difficulty. The patient tolerated the procedure well. The quality of the bowel preparation was good. The terminal ileum, ileocecal valve, appendiceal orifice, and rectum were photographed. Findings: The entire examined colon appeared normal. Impression: - The entire examined colon is normal. - No specimens collected. Recommendation: - Resume previous diet. - Continue present medications. - Repeat colonoscopy in 10 years for surveillance. - Return to primary care physician as previously scheduled. Matty Lindsey DO 05/01/2017 10:13:56 AM This report has been signed electronically. Note Initiated On: 05/01/2017 9:51 AM I attest to the content of the Intraoperative Record and orders documented therein, exceptions below
--- NOTE | 2017-05-01 10:38 | Anesthesiology Progress Note ---
Anesthesia Post Op Note Date & Time May 01, 2017 at 10:38 Vital Signs Pain Intensity: 0 Vital Signs Past 12 Hours Date Time Temp Pulse Resp B/P (MAP) Pulse Ox O2 Delivery O2 Flow Rate FiO2 05/01/17 10:30 99 16 127/95 (106) 96 Room Air 05/01/17 10:15 95 16 125/92 (103) 98 Room Air 05/01/17 09:43 37.1 114 20 137/77 (97) 96 Room Air Notes Mental Status: alert / awake / arousable, participated in evaluation Pt Amnestic to Procedure: Yes Nausea / Vomiting: adequately controlled Pain: adequately controlled Airway Patency, RR, SpO2: stable & adequate BP & HR: stable & adequate Hydration State: stable & adequate Anesthetic Complications: no major complications apparent
[2017-05-01 10:45] VITALS: BP 129/92; PULSE 97; O2SAT 98
== END | disposition home or self-care (01) ==
LOC: C.GI 09:16
PROVIDERS: ATTEND Internal Medicine
DX: R10.11 Right upper quadrant pain (principal); E11.9 Type 2 diabetes mellitus without complications; J45.909 Unspecified asthma, uncomplicated; K21.0 Gastro-esophageal reflux disease with esophagitis; Z86.73 Personal history of transient ischemic attack (TIA), and cerebral infarction without residual deficits; Z79.84 Long term (current) use of oral hypoglycemic drugs; Z79.899 Other long term (current) drug therapy; Z79.4 Long term (current) use of insulin; Z79.82 Long term (current) use of aspirin

== ENCOUNTER 2017-06-04 20:14 | Emergency (ER) | payer OTHER ==
[~2017-06-04] VITALS: Ht 157.5 cm; Wt 119.0 kg
[~2017-06-04 20:14] MED LIST changes: -MIDAZOLAM HCL 1 MG/ML 2ML VIAL ONE; -PROPOFOL IV EMULSION 10 MG/ML 20 ML VIAL IV ONE; -SODIUM CHLORIDE 0.9% 500ML 500 ML IV ONE
[2017-06-04 20:28] VITALS: BP 123/78; TEMP 37.1; Ht 157.5 cm; Wt 119.0 kg
[2017-06-04 20:50] VITALS: PULSE 104; O2SAT 95
--- NOTE | 2017-06-05 01:58 | EMERGENCY ROOM VISIT NOTE ---
ED Visit Note First contact with patient: 20:35 Chief Complaint: I have a rash on my right upper arm. History of Present Illness: Ms. Ramos is a 42-year-old white female who ambulates into the ED complaining of a rash on the posterior aspect of the right upper arm. Patient reports 4 days ago she noted a clustering of some whitish lesions over the posterior aspect of the right upper arm. She reports she's had a similar rash previously but was did not have it evaluated at that time. Over the last 2 days she reports her rash has been gradually getting itch year and itchy her. She does report she has been scratching it and now she is having some mild stinging pain in the area of the rash that was not there previously. She reports she has been using [id number] steroids and other ointments without relief of her itchy skin. She denies any associated symptoms with her rash including fevers, chills, sweats, other skin eruptions, skin color changes , upper respiratory tract symptoms, cough, wheezing, shortness of breath, sensations of throat swelling, decreased appetite, nausea/vomiting, joint pains , arm weakness/numbness/tingling. Review of Systems: As noted above in history of present illness. 8 body systems were reviewed and found to be negative as noted above. Past Medical History: (1) Asthma (2) ASTHMA, UNSPECIFIED (3) BIPOLAR DISORDER, UNSPECIFIED (4) DIAB NIKHIL WO COMPL, TYPE II OR UNSPEC TYPE, NOT UNCNTRLD (5) Diabetic neuropathy (6) DIVERTICULOSIS COLON (W/O MENT OF HEMORRHAGE) (7) DKA (diabetic ketoacidoses) (8) Endometriosis (9) ESOPHAGEAL REFLUX (10) Gallstone (11) Gastritis (12) Hiatal hernia (13) Hyperlipidemia (14) IBS (irritable bowel syndrome) (15) MIGRAINE UNSPECIFIED W/O INTRACTABLE MIGRAINE (16) MORBID OBESITY (17) Ovarian cyst (18) Sciatica (19) TIA (transient ischemic attack) (20) Vertigo Surgical Problems: (1) H/O: hysterectomy (2) History of cholecystectomy (3) TUBAL LIGATION STATUS Current Medications: Medications Dose Route/Sig Max Daily Dose Days Date Category Dose Instructions [Vitamin D3] 1 Tab PO QPM 04/20/17 Reported Glucophage (Metformin Hcl) 1,000 Mg Tab 2 Tab PO QPM 04/20/17 Reported Proventil Hfa (Albuterol Sulfate) 108 Mcg/Act Aer 2 Puffs INH Q4-6HRS PRN 10/24/16 Reported Amitriptyline HCl 50 Mg Tab 50 Mg PO HS 10/24/16 Reported Zolpidem Tartrate 10 Mg Tab 10 Mg PO HS 10/24/16 Reported Womens One Daily (Multiple Vitamins W/ Minerals) 1 Tab Tab 1 Tab PO QPM 10/24/16 Reported Novolog Flexpen (Insulin Aspart) 100 Units/Ml Inj 40-50 Units SC TIDM 10/24/16 Reported THREE TIMES DAILY WITH MEALS AND DIRECTED FOR SNACKS Pantoprazole Sodium (Pantoprazole) 40 Mg Tab 40 Mg PO DAILY PRN 10/24/16 Reported Levothyroxine Sodium 75 Mcg Tab 75 Mcg PO QAM 10/24/16 Reported Toujeo Solostar (Insulin Glargine) 300 Unit/Ml Inj 80 Units SQ HS 05/07/16 Reported Simvastatin 20 Mg Tab 20 Mg PO HS 04/20/16 Reported Advil (Ibuprofen) 200 Mg Tab 800 Mg PO DAILY PRN 04/20/16 Reported Benadryl Allergy (Diphenhydramine Hcl) 25 Mg Cap 25 Mg PO HS PRN 01/25/16 Reported Duoneb (Ipratropium-Albuterol) 3 Ml Nebu 1 Treatment INH Q4H PRN 04/08/15 Reported Miralax (Polyethylene Glycol 3350) 1 Pow Pow 17 Gm PO HS 04/08/15 Reported Claritin (Loratadine) 10 Mg Tab 10 Mg PO DAILY PRN 03/30/[address] (Diclofenac Sod) 50 Mg Tabec 50 Mg PO HS 03/30/15 Reported Zyprexa (Olanzapine) 20 Mg Tab 20 Mg PO HS 03/30/15 Reported Wellbutrin Sr (Bupropion HCl) 100 Mg Ertab 100 Mg PO QPM 03/30/15 Reported Lisinopril 2.5 Mg Tab 2.5 Mg PO HS 03/30/15 Reported Aspirin Ec (Aspirin) 81 Mg Tab 81 Mg PO HS 03/23/15 Reported Colace (Docusate Sodium) 100 Mg Cap 100 Mg PO BID PRN 03/04/15 Reported Zantac (Ranitidine Hcl) 300 Mg Tab 300 Mg PO HS 09/18/14 Reported Lorazepam 0.5 Mg Tab 0.5 Mg PO DAILY PRN 09/18/14 Reported Advair Diskus 250/50 60 Dose (Fluticasone Prop/Salmeterol) 1 Ea Aerp 1 Puff INH BID 06/27/14 Reported Gabapentin 300 Mg Cap 900 Mg PO HS 06/27/14 Reported Fluticasone Propionate 120 Sprays/6000 Mcg Inha 2 Sprays ROLY DAILY PRN 06/27/14 Reported Allergies to Medications: Citalopram, morphine. Social History: Patient is not currently employed; she feels safe in her home environment; she denies tobacco and alcohol use. Physical Examination: Vital Signs: Date Time Temp Pulse Resp B/P (MAP) Pulse Ox O2 Delivery O2 Flow Rate FiO2 06/04/17 20:50 104 20 95 06/04/17 20:28 37.1 106 20 123/78 96 Room Air GENERAL: 42-year-old female in no acute distress, nontoxic-appearing, afebrile and hemodynamically stable. NEUROLOGICAL: Awake, alert and oriented to person, place and time. Answering questions appropriately and following commands. Normal gait. Good hand eye coordination. SKIN: Warm, dry and pink. Right Arm: Over the posterior lateral aspect of the proximal humerus patient has a 6 x 6 cm area of mild erythema and within this area she has 5 or 6 slightly more erythematous and slightly elevated papules. This area does not appear cellulitic. The area is not warm/hot to touch. There is no lymphangitis. There are no open wounds. This area is mildly excoriated from the patient itching the area. Should be noted it is well demarcated. I do not feel any palpable abscesses. There is no induration or fluctuance in this area. THORAX: Lungs sounds are clear to auscultation and equal bilaterally with symmetrical chest wall. ABDOMEN: Obese, soft and nontender. Positive bowel sounds in all quadrants. No guarding, rigidity or organomegaly. RIGHT UPPER EXTREMITY: Soft tissue injury/rashes noted above. No tenderness throughout the shoulder joint, elbow joint, forearm or wrist. All distal neurovascular statuses are intact and equal bilaterally. ED Course: Patient is assessed as noted above. Patient's medication list was reviewed. Patient is educated about today's findings and instructed on her treatment plan ; she verbalized understanding and agreement with this plan. Clinical Impression: Rash. Disposition: Patient discharged home in stable condition; prior to departure she was reassessed and subjectively reported she was feeling better. Plan: Patient was encouraged to continue her current medications as prescribed. I did encourage her to continue to use her steroid cream 2 times a day on the area of her rash. Patient was encouraged use 50 mg of Benadryl every 6 hours as needed for itching as well as cool compresses or ice bags on the area of itching. I demarcated the area of erythema for further evaluation and encouraged her to follow-up with her family physician or return to the ED for recheck, worsening rash or any new/concerning symptoms.
== END 2017-06-04 20:51 | disposition home or self-care (01) ==
LOC: C.EDB 20:14 → C.EDD 20:51
DX: R21 Rash and other nonspecific skin eruption (principal); J45.909 Unspecified asthma, uncomplicated; F31.9 Bipolar disorder, unspecified; K57.90 Diverticulosis of intestine, part unspecified, without perforation or abscess without bleeding; K21.9 Gastro-esophageal reflux disease without esophagitis; E78.5 Hyperlipidemia, unspecified; E66.9 Obesity, unspecified; G45.9 Transient cerebral ischemic attack, unspecified; E11.10 Type 2 diabetes mellitus with ketoacidosis without coma

== ENCOUNTER → 2017-06-16 | Outpatient (CLI) | payer OTHER ==
[2017-06-16 16:20] LABS: CHOLESTEROL/HDL RATIO 3.7
[2017-06-16 17:31] LABS: RATIO 6.4 mcg/mg (0-30.0)
[2017-06-17 07:54] LABS: ESTIMATED AVERAGE GLUCOSE 166 mg/dl; HA1C FLAG Normal (Normal)
== END | disposition home or self-care (01) ==
LOC: C.LAB1850 15:02
PROVIDERS: ATTEND Physician Assistant
DX: E11.9 Type 2 diabetes mellitus without complications (principal); E78.5 Hyperlipidemia, unspecified; Z51.81 Encounter for therapeutic drug level monitoring; Z79.4 Long term (current) use of insulin

== ENCOUNTER → 2017-06-27 | Outpatient (CLI) | payer OTHER ==
[2017-06-27 15:09] LABS: THYROID STIMULATING HORMONE 2.56 uIu/ml (0.300-4.500)
== END | disposition home or self-care (01) ==
LOC: C.LAB1850 13:25
PROVIDERS: ATTEND Physician Assistant
DX: E11.9 Type 2 diabetes mellitus without complications (principal); E03.9 Hypothyroidism, unspecified

== ENCOUNTER 2017-09-10 17:56 | Emergency (ER) | payer OTHER ==
[~2017-09-10] VITALS: Ht 160 cm; Wt 116.5 kg
[~2017-09-10 17:56] MED LIST changes: -LORA10TA5 PO; +LORA10TA6 PO; +PANT40TA2 PO; -PRT/40 PO
[2017-09-10 17:59] VITALS: TEMP 36.7; Ht 160 cm; Wt 116.5 kg
[2017-09-10] MEDS ORDERED: SODIUM CHLORIDE 0.9% 1000ML 1,000 ML IV STA (18:17)
[2017-09-10] MEDS ORDERED: ONDANSETRON INJ 2 MG/ML 2 ML VIAL IV STA (18:17)
[2017-09-10] MEDS ORDERED: CHOL1000 PO (18:25)
[2017-09-10 18:55] LABS: BASO % 0.3 %; BASO ABS # 0.03 K/uL (0-0.2); EOS % 1.5 %; EOS ABS # 0.15 K/uL (0-0.5); HEMATOCRIT 41.3 % (37-47); IG# 0.03 K/uL (0.00-0.02); LYMPH % 20.9 %; LYMPH ABS # 2.09 K/uL (1.2-3.4); MEAN CELL VOLUME 85.5 fL (80-100); MEAN CORPUSCULAR HGB CONC 33.9 g/dl (32-36); MEAN PLATELET VOLUME 9.3 fL (7.4-10.4); MONO % 5.5 %; MONO ABS # 0.55 K/uL (0.11-0.59); NEUT % 71.5 %; NEUT ABS # 7.16 K/uL (1.4-6.5); PLATELET COUNT 235 K/uL (130-400); RED CELL DISTRIBUTION WIDTH CV 13.8 % (11.5-14.5); RED CELL DISTRIBUTION WIDTH SD 42.8 fL (36.4-46.3); WHITE BLOOD COUNT 10.01 K/uL (4.8-10.8)
[2017-09-10 19:13] LABS: ALBUMIN 3.3 gm/dl (3.4-5.0); CALCIUM 8.7 mg/dl (8.5-10.1); CREATININE 0.73 mg/dl (0.60-1.20)
[2017-09-10 19:18] LABS: TOTAL PROTEIN 7.6 gm/dl (6.4-8.2)
[2017-09-10] MEDS ORDERED: CEFTRIAXONE SOD INJ 1 GM ADDVIAL IV STA (20:21)
[2017-09-10] MEDS ORDERED: ONDA4TAB10 SL (20:24)
--- NOTE | 2017-09-10 20:25 | EMERGENCY ROOM VISIT NOTE ---
History Report prepared by Fred: José Miguel Bartlett Under the Supervision of: Dr. Fox Jacob D.O. First contact with patient: 18:06 Chief Complaint: NAUSEA Stated Complaint: THROW UP Nursing Triage Summary: nausea for past 3-4 days and fever of 101 no vomiting or diarrhea History of Present Illness The patient is a 42 year old female diabetic who presents to the Emergency Room with complaints of persistent nausea that started 4 to 5 days ago. She states that she has been barely able to keep any food down, and has had episodes of vomiting. The patient notes that she has not vomited today, but she almost did in the parking lot while coming in here. She adds that when she gets really sick , she gets some abdominal pain. The patient says that she gets intermittent diarrhea due to her history of a cholecystectomy, and denies any worsened diarrhea these past few days than normal. The patient adds that she has a history of hyperlipidemia, and is on medications for depression. She is a non- smoker. Source of History: patient Onset: 4 to 5 days ago Position: other (global - nausea) Quality: other (unable to keep foods down) Timing: other (persistent) Associated Symptoms: + vomiting, + abdominal pain (when sick), No diarrhea ( no worsened) Note: No other associated symptoms noted. Review of Systems See HPI for pertinent positives & negatives. A total of 10 systems reviewed and were otherwise negative. Past Medical & Surgical Medical Problems: (1) Asthma (2) ASTHMA, UNSPECIFIED (3) BIPOLAR DISORDER, UNSPECIFIED (4) DIAB NIKHIL WO COMPL, TYPE II OR UNSPEC TYPE, NOT UNCNTRLD (5) Diabetic neuropathy (6) DIVERTICULOSIS COLON (W/O MENT OF HEMORRHAGE) (7) DKA (diabetic ketoacidoses) (8) Endometriosis (9) ESOPHAGEAL REFLUX (10) Gallstone (11) Gastritis (12) Hiatal hernia (13) Hyperlipidemia (14) IBS (irritable bowel syndrome) (15) MIGRAINE UNSPECIFIED W/O INTRACTABLE MIGRAINE (16) MORBID OBESITY (17) Ovarian cyst (18) Sciatica (19) TIA (transient ischemic attack) (20) Vertigo Surgical Problems: (1) H/O: hysterectomy (2) History of cholecystectomy (3) TUBAL LIGATION STATUS Family History Diabetes mellitus FH: gallbladder disease FH: lung disease FH: seizures Heart disease Hypertension Social History Smoking Status: Never Smoker Alcohol Use: none Drug Use: none Marital Status: in relationship Housing Status: lives with family Occupation Status: unemployed Current/Historical Medications Scheduled Amitriptyline HCl (Amitriptyline HCl), 50 MG PO HS Aspirin (Aspirin Ec), 81 MG PO HS Bupropion (Wellbutrin Sr), 100 MG PO QPM Cholecalciferol (Vitamin D3), 1,000 UNITS PO HS Diclofenac Sod (Diclofenac Sodium Dr), 50 MG PO HS Fluticasone Prop/Salmeterol (Advair Diskus 250/50 60 Dose), 1 PUFF INH BID Gabapentin (Gabapentin), 900 MG PO HS Insulin Aspart (Novolog Flexpen), 40-50 UNITS SC WITH MEALS & SNACKS Insulin Glargine (Toujeo Solostar), 80 UNITS SQ HS Levothyroxine Sodium (Levothyroxine Sodium), 75 MCG PO QAM Lisinopril (Lisinopril), 2.5 MG PO HS Metformin Hcl (Glucophage), 2,000 MG PO QPM Multiple Vitamins W/ Minerals (Womens One Daily), 1 TAB PO QPM Olanzapine (Zyprexa), 20 MG PO HS Ondasetron Odt (Zofran Odt), 4 MG SL Q6H Polyethylene Glycol 3350 (Miralax), 17 GM PO HS Ranitidine Hcl (Zantac), 300 MG PO HS Simvastatin (Simvastatin), 20 MG PO HS Zolpidem Tartrate (Zolpidem Tartrate), 10 MG PO HS Scheduled PRN Albuterol Sulfate (Proventil Hfa), 2 PUFFS INH Q4-6HRS PRN for Asthma Symptoms Diphenhydramine Hcl (Benadryl Allergy), 25 MG PO HS PRN for Sleep Docusate Sodium (Colace), 100 MG PO BID PRN for Constipation Fluticasone Propionate (Fluticasone Propionate), 2 SPRAYS ROLY DAILY PRN for Allergy Symptoms Ibuprofen (Advil), 800 MG PO DAILY PRN for Headache or Pain Ipratropium-Albuterol (Duoneb), 1 TREATMENT INH Q4H PRN for SOB/Wheezing Loratadine (Claritin), 10 MG PO DAILY PRN for Allergy Symptoms Lorazepam (Lorazepam), 0.5 MG PO DAILY PRN for Anxiety Pantoprazole (Pantoprazole Sodium), 40 MG PO DAILY PRN for Constipation Allergies Coded Allergies: BEE STING (Verified Allergy, Intermediate, LARGE SWELLING/RED/WELT. TURNS INTO BRUISING, 09/10/17) Dust (Verified Allergy, Intermediate, ITCHY EYES/SCRATCHY THROAT. SWOLLEN EYES, 09/10/17) Morphine (Verified Allergy, Intermediate, LOCALIZED REACTION: RED/WELTS, ) POLLEN (Verified Allergy, Intermediate, ITCHY EYES/SCRATCHY THROAT. SWOLLEN EYES, 09/10/17) Adhesives (Verified Allergy, Unknown, VERY RED SKIN AND ITCHY, 09/10/17) Citalopram (Verified Allergy, Unknown, JAW PAIN AND HEADACHES, 09/10/17) Physical Exam Vital Signs Date Time Temp Pulse Resp B/P (MAP) Pulse Ox O2 Delivery O2 Flow Rate FiO2 09/10/17 19:03 88 20 128/95 95 Room Air 09/10/17 17:59 36.7 107 20 93 Room Air Physical Exam CONSTITUTIONAL/VITAL SIGNS: Reviewed / noted above. GENERAL: Non-toxic in appearance. INTEGUMENTARY: Warm, dry, and [place]. HEAD: Normocephalic. EYES: without scleral icterus or trauma. ENT/OROPHARYNX: clear and moist. LYMPHADENOPATHY/NECK: Is supple without lymphadenopathy or meningismus. RESPIRATORY: Lungs clear and equal. CARDIOVASCULAR: Regular rate and rhythm. GI/ABDOMEN: Soft. Mild diffuse abdominal tenderness. No organomegaly or pulsatile mass. No rebound or guarding. Normal bowel sounds. EXTREMITIES: Warm and well perfused. BACK: No CVA tenderness. NEUROLOGICAL: Intact without focal deficits. PSYCHIATRIC: normal affect. MUSCULOSKELETAL: Normally developed with good muscle tone. Medical Decision & Procedures Laboratory Results 09/10/17 18:40 Red Blood Count 4.83, Mean Corpuscular Volume 85.5, Mean Corpuscular Hemoglobin 29.0, Mean Corpuscular Hemoglobin Concent 33.9, Mean Platelet Volume 9.3, Neutrophils (%) (Auto) 71.5, Lymphocytes (%) (Auto) 20.9, Monocytes (%) (Auto) 5.5, Eosinophils (%) (Auto) 1.5, Basophils (%) (Auto) 0.3, Neutrophils # (Auto) 7.16, Lymphocytes # (Auto) 2.09, Monocytes # (Auto) 0.55, Eosinophils # (Auto) 0.15, Basophils # (Auto) 0.03 09/10/17 18:40 Test 09/10/17 18:40 09/10/17 19:45 White Blood Count 10.01 K/uL (4.8-10.8) Red Blood Count 4.83 M/uL (4.2-5.4) Hemoglobin 14.0 g/dL (12.0-16.0) Hematocrit 41.3 % (37-47) Mean Corpuscular Volume 85.5 fL (80-100) Mean Corpuscular Hemoglobin 29.0 pg (25-34) Mean Corpuscular Hemoglobin Concent 33.9 g/dl (32-36) Platelet Count 235 K/uL (130-400) Mean Platelet Volume 9.3 fL (7.4-10.4) Neutrophils (%) (Auto) 71.5 % Lymphocytes (%) (Auto) 20.9 % Monocytes (%) (Auto) 5.5 % Eosinophils (%) (Auto) 1.5 % Basophils (%) (Auto) 0.3 % Neutrophils # (Auto) 7.16 K/uL (1.4-6.5) Lymphocytes # (Auto) 2.09 K/uL (1.2-3.4) Monocytes # (Auto) 0.55 K/uL (0.11-0.59) Eosinophils # (Auto) 0.15 K/uL (0-0.5) Basophils # (Auto) 0.03 K/uL (0-0.2) RDW Standard Deviation 42.8 fL (36.4-46.3) RDW Coefficient of Variation 13.8 % (11.5-14.5) Immature Granulocyte % (Auto) 0.3 % Immature Granulocyte # (Auto) 0.03 K/uL (0.00-0.02) Anion Gap 5.0 mmol/L (3-11) Est Creatinine Clear Calc Drug Dose 121.1 ml/min Estimated GFR () 116.1 Estimated GFR (Non- 100.2 BUN/Creatinine Ratio 12.4 (10-20) Calcium Level 8.7 mg/dl (8.5-10.1) Total Bilirubin 0.5 mg/dl (0.2-1) Direct Bilirubin 0.2 mg/dl (0-0.2) Aspartate Amino Transf (AST/SGOT) 36 U/L (15-37) Alanine Aminotransferase (ALT/SGPT) 41 U/L (12-78) Alkaline Phosphatase 93 U/L (45-117) Total Protein 7.6 gm/dl (6.4-8.2) Albumin 3.3 gm/dl (3.4-5.0) Lipase 93 U/L (73-393) Urine Color ORANGE Urine Appearance TURBID (CLEAR) Urine pH 5.0 (4.5-7.5) Urine Specific Blanch 1.033 (1.000-1.030) Urine Protein NEG (NEG) Urine Glucose (UA) NEG (NEG) Urine Ketones 2+ (NEG) Urine Occult Blood NEG (NEG) Urine Nitrite NEG (NEG) Urine Bilirubin NEG (NEG) Urine Urobilinogen NEG (NEG) Urine Leukocyte Esterase NEG (NEG) Urine WBC (Auto) 10-30 /hpf (0-5) Urine RBC (Auto) 0-4 /hpf (0-4) Urine Hyaline Casts (Auto) 0 /lpf (0-5) Urine Epithelial Cells (Auto) >30 /lpf (0-5) Urine Bacteria (Auto) 4+ (NEG) Urine Crystals AMORPHOUS SEDIMENT (NONE Urine Pathogenic Casts /lpf (0) Laboratory results as stated above per my review. Medications Administered Medications (Trade) Dose Ordered Sig/Moon Route Start Time Stop Time Status Last Admin Dose Admin Sodium Chloride 1,000 ml @ 999 mls/hr Q1H1M STAT IV 09/10/17 18:17 09/10/17 19:17 DC 09/10/17 18:17 999 MLS/HR Ondansetron HCl (Zofran Inj) 4 mg NOW STAT IV 09/10/17 18:17 09/10/17 18:18 DC 09/10/17 19:03 4 MG Ceftriaxone Sodium (Rocephin Inj) 1 gm NOW STAT IV 09/10/17 20:21 09/10/17 20:22 DC 09/10/17 20:34 1 GM ED Course 1808: Previous medical records were reviewed. The patient was evaluated in room C7. A complete history and physical examination was performed. 1816: Ordered Zofran Inj 4 mg IV, NSS 1000 ml @ 999 mls/hr IV. 2020: Ordered Rocephin Inj 1 gm IV. 2027: On reevaluation, the patient is feeling better. I discussed the results and findings with the patient. She verbalized agreement of the treatment plan. She was discharged home. Medical Decision Differential diagnosis: Etiologies such as gastroenteritis, food borne illness, infections, appendicitis , diverticulitis, inflammatory bowel disease, obstruction, GI bleed, biliary pathology, as well as others were entertained. This is a 42-year-old female who presents to the ED with a chief complaint of nausea and vomiting. The patient states that she has had the symptoms for the past 4-5 days. She did not vomit today but has had nausea today. She states that she always has diarrhea. This is even prior to feeling ill the past 4-5 days. The patient reports some transient abdominal discomfort with vomiting. She reports history of diabetes, cholecystectomy and high cholesterol. She does take a number of psychiatric medications as well. Her physical exam revealed a slight tachycardia. Her abdomen was soft and mildly tender diffusely which is likely related to the vomiting. The patient feels this is also the case. Laboratory studies included a normal CBC and complete metabolic panel. Lipase was negative. Urine revealed 2+ ketones and some evidence of contamination but possible UTI. The patient was given 1 dose of IV Rocephin here. She was given IV fluids and IV Zofran. She was felt to be stable for discharge. She was given a prescription for Zofran. We will await culture for further treatment of possible UTI. Medication Reconcilliation Current Medication List: was personally reviewed by me Blood Pressure Screening Patient's blood pressure: Normal blood pressure Impression Primary Impression: Nausea & vomiting Scribe Attestation The scribe's documentation has been prepared under my direction and personally reviewed by me in its entirety. I confirm that the note above accurately reflects all work, treatment, procedures, and medical decision making performed by me. Departure Information Dispostion Home / Self-Care Prescriptions Ondasetron Odt (ZOFRAN ODT) 4 Mg Tab 4 MG SL Q6H for Nausea, #15 TAB Prov: Fox Jacob D.O. 09/10/17 Referrals No Doctor, Assigned (PCP) Patient Instructions My [facility] Additional Instructions Zofran: Allow one tablet to dissolve under the tongue every 6 hours as needed for nausea or vomiting. If your urine culture reveals infection,you will be contacted and started on additional antibiotic. Follow-up with your doctor for further care and evaluation in 2-4 days. Return to the emergency department for worsening or new symptoms or any concerns. You have been examined and treated today on an emergency basis only. This is not a substitute for, or an effort to provide, complete comprehensive medical care. It is impossible to recognize and treat all injuries or illnesses in a single emergency department visit. It is therefore important that you follow up closely with your doctor. Call as soon as possible for an appointment.
[2017-09-10 21:09] VITALS: BP 138/96; PULSE 89; O2SAT 97
== END 2017-09-10 21:10 | disposition home or self-care (01) ==
LOC: C.EDB 17:57 → C.EDC 21:10
DX: R11.2 Nausea with vomiting, unspecified (principal); E78.5 Hyperlipidemia, unspecified; F32.9 Major depressive disorder, single episode, unspecified; R19.7 Diarrhea, unspecified; J45.909 Unspecified asthma, uncomplicated; F31.9 Bipolar disorder, unspecified; E11.40 Type 2 diabetes mellitus with diabetic neuropathy, unspecified; K57.30 Diverticulosis of large intestine without perforation or abscess without bleeding; N80.9 Endometriosis, unspecified; K21.9 Gastro-esophageal reflux disease without esophagitis; K44.9 Diaphragmatic hernia without obstruction or gangrene; K58.9 Irritable bowel syndrome, unspecified; G43.909 Migraine, unspecified, not intractable, without status migrainosus; E66.01 Morbid (severe) obesity due to excess calories; N83.209 Unspecified ovarian cyst, unspecified side; M54.30 Sciatica, unspecified side; R42 Dizziness and giddiness; Z86.73 Personal history of transient ischemic attack (TIA), and cerebral infarction without residual deficits; Z90.710 Acquired absence of both cervix and uterus; Z98.51 Tubal ligation status; Z79.82 Long term (current) use of aspirin; Z79.4 Long term (current) use of insulin; Z79.84 Long term (current) use of oral hypoglycemic drugs; Z83.3 Family history of diabetes mellitus; Z82.49 Family history of ischemic heart disease and other diseases of the circulatory system; Z82.0 Family history of epilepsy and other diseases of the nervous system

== ENCOUNTER → 2017-10-06 | Outpatient (CLI) | payer OTHER ==
[~2017-10-06] MED LIST changes: +CHOL1000 PO; +ONDA4TAB10 SL; -VITAMIN D3 PO
[2017-10-06 15:27] LABS: ALBUMIN 3.3 gm/dl (3.4-5.0); ALT/SGPT 44 U/L (12-78); AST/SGOT 23 U/L (15-37); BLOOD UREA NITROGEN 10 mg/dl (7-18); CALCIUM 8.9 mg/dl (8.5-10.1); CARBON DIOXIDE 30 mmol/L (21-32); CREATININE 0.71 mg/dl (0.60-1.20); GLUCOSE 110 mg/dl (70-99); POTASSIUM 3.9 mmol/L (3.5-5.1); SODIUM 135 mmol/L (136-145)
[2017-10-06 15:30] LABS: ALKALINE PHOSPHATASE 104 U/L (45-117); TOTAL PROTEIN 7.8 gm/dl (6.4-8.2)
[2017-10-06 15:38] LABS: HEMOGLOBIN A1C 6.8 % (4.5-5.6)
== END | disposition home or self-care (01) ==
LOC: C.LAB1850 14:19
PROVIDERS: ATTEND Physician Assistant
DX: E11.9 Type 2 diabetes mellitus without complications (principal); E78.5 Hyperlipidemia, unspecified; E03.9 Hypothyroidism, unspecified

== ENCOUNTER 2017-10-31 13:20 | Emergency (ER) | payer OTHER ==
[~2017-10-31] VITALS: Ht 160 cm; Wt 118.0 kg
[~2017-10-31 13:20] MED LIST changes: +GABA-1219 PO; -GABA1CAP4 PO
[2017-10-31 13:22] VITALS: BP 120/87; PULSE 92; TEMP 36.6; O2SAT 95; Ht 160 cm; Wt 118.0 kg
[2017-10-31] MEDS ORDERED: PRED20TA2 PO (14:01)
[2017-10-31] MEDS ORDERED: HYDR-5688 PO (14:01)
--- NOTE | 2017-10-31 14:03 | EMERGENCY ROOM VISIT NOTE ---
History First contact with patient: 13:27 Chief Complaint: BACK PAIN Stated Complaint: BACK PAIN History of Present Illness The patient is a 42 year old female who presents to the Emergency Room with complaints of low back pain. The patient reports that she woke up with pain across her low back yesterday. She states the pain is worse on the right side. The pain occasionally radiates down her right leg with movements. It has been gradually worsening since it started. She states that she is fairly comfortable while sitting down, however when she lays down flat the pain worsens. She reports chronic neuropathy due to diabetes but denies any new numbness or weakness. She denies radiation of the pain into her abdomen, vomiting, urinary symptoms, bowel/bladder incontinence, or saddle paresthesias. She does report she at times becomes nauseous due to the pain. She rates the discomfort in 8/10. She took ibuprofen yesterday with some relief. She reports a history of kidney stones but states this does not feel similar. She also reports a history of bulging disks and sciatic nerve problems which was diagnosed on a previous MRI. She has never had back surgery. She denies any fever/chills. Review of Systems A complete 10 point review of systems was reviewed with the patient with pertinent positives and negatives as per history of present illness. All else were negative. Past Medical/Surgical History Medical Problems: (1) Asthma (2) ASTHMA, UNSPECIFIED (3) BIPOLAR DISORDER, UNSPECIFIED (4) DIAB NIKHIL WO COMPL, TYPE II OR UNSPEC TYPE, NOT UNCNTRLD (5) Diabetic neuropathy (6) DIVERTICULOSIS COLON (W/O MENT OF HEMORRHAGE) (7) DKA (diabetic ketoacidoses) (8) Endometriosis (9) ESOPHAGEAL REFLUX (10) Gallstone (11) Gastritis (12) Hiatal hernia (13) Hyperlipidemia (14) IBS (irritable bowel syndrome) (15) MIGRAINE UNSPECIFIED W/O INTRACTABLE MIGRAINE (16) MORBID OBESITY (17) Ovarian cyst (18) Sciatica (19) TIA (transient ischemic attack) (20) Vertigo Surgical Problems: (1) H/O: hysterectomy (2) History of cholecystectomy (3) TUBAL LIGATION STATUS Family History Diabetes mellitus FH: gallbladder disease FH: lung disease FH: seizures Heart disease Hypertension Social History Smoking Status: Never Smoker Alcohol Use: none Drug Use: none Marital Status: in relationship Housing Status: lives with family Occupation Status: unemployed Current/Historical Medications Scheduled Amitriptyline HCl (Amitriptyline HCl), 50 MG PO HS Aspirin (Aspirin Ec), 81 MG PO HS Bupropion (Wellbutrin Sr), 100 MG PO QPM Cholecalciferol (Vitamin D3), 1,000 UNITS PO HS Diclofenac Sod (Diclofenac Sodium Dr), 50 MG PO HS Fluticasone Prop/Salmeterol (Advair Diskus 250/50 60 Dose), 1 PUFF INH BID Gabapentin (Gabapentin), 900 MG PO HS Insulin Aspart (Novolog Flexpen), 40-50 UNITS SC WITH MEALS & SNACKS Insulin Glargine (Toujeo Solostar), 80 UNITS SQ HS Levothyroxine Sodium (Levothyroxine Sodium), 75 MCG PO QAM Lisinopril (Lisinopril), 2.5 MG PO HS Metformin Hcl (Glucophage), 2,000 MG PO QPM Multiple Vitamins W/ Minerals (Womens One Daily), 1 TAB PO QPM Olanzapine (Zyprexa), 20 MG PO HS Ondasetron Odt (Zofran Odt), 4 MG SL Q6H Polyethylene Glycol 3350 (Miralax), 17 GM PO HS Prednisone (Prednisone Tab), 0 PO DAILY Ranitidine Hcl (Zantac), 300 MG PO HS Simvastatin (Simvastatin), 20 MG PO HS Zolpidem Tartrate (Zolpidem Tartrate), 10 MG PO HS Scheduled PRN Albuterol Sulfate (Proventil Hfa), 2 PUFFS INH Q4-6HRS PRN for Asthma Symptoms Diphenhydramine Hcl (Benadryl Allergy), 25 MG PO HS PRN for Sleep Docusate Sodium (Colace), 100 MG PO BID PRN for Constipation Fluticasone Propionate (Fluticasone Propionate), 2 SPRAYS ROLY DAILY PRN for Allergy Symptoms Hydrocodone/Acetaminophen 5MG/325MG ([place] 5MG/325MG), 1 TABLET PO Q4H PRN for Pain Ibuprofen (Advil), 800 MG PO DAILY PRN for Headache or Pain Ipratropium-Albuterol (Duoneb), 1 TREATMENT INH Q4H PRN for SOB/Wheezing Loratadine (Claritin), 10 MG PO DAILY PRN for Allergy Symptoms Lorazepam (Lorazepam), 0.5 MG PO DAILY PRN for Anxiety Pantoprazole (Pantoprazole Sodium), 40 MG PO DAILY PRN for Constipation Physical Exam Vital Signs Date Time Temp Pulse Resp B/P (MAP) Pulse Ox O2 Delivery O2 Flow Rate FiO2 10/31/17 13:22 36.6 92 16 120/87 95 Room Air Physical Exam VITALS: Vitals are noted on the nurse's note and reviewed by myself. Vital signs stable. GENERAL: This is a 42-year-old female, in no acute distress, nondiaphoretic, well-developed well-nourished. SKIN: The skin was without rashes. HEART: Regular rate and rhythm without murmurs gallops or rubs. LUNGS: Clear to auscultation bilaterally without wheezes, rales or rhonchi. ABDOMEN: Soft, nontender to palpation. MUSCULOSKELETAL: There is no tenderness to the lumbar region. No CVA tenderness. Full range of motion and strength 5/5 in bilateral lower extremities. NEURO: Patient was alert and oriented to person place and time. Normal sensation bilateral lower extremities. Patellar reflexes 2+ bilaterally. Medical Decision & Procedures Medical Decision Differential diagnosis includes cauda equina syndrome, cord compression, disc herniation, muscle spasm, lumbar strain, epidural abscess, malignancy, transverse myelitis, urinary tract infection, colitis, diverticulitis, kidney stone, among others. The patient was evaluated as above. She presents with lumbar back pain which started yesterday. She has a history of kidney stones but states this does not feel similar. There is no abdominal pain, vomiting or urinary symptoms. A urine dip was obtained and shows no blood in the urine. Her symptoms are most consistent with musculoskeletal back pain. The patient does report a history of bulging disks. There are some radicular symptoms. There is nothing to suggest cauda equina syndrome or cord compression. I feel she would benefit from a course of a steroid. I discussed the risks/benefits of this given the patient's diabetes. She assured me that her diabetes was very well under control and she is comfortable taking the steroid and will check her blood sugars very frequently while taking this medication. She will be prescribed a short course of [place] for pain, as her pain is worse when she lies down to go to sleep at night. She does have a listed allergy to morphine, but states she has taken hydrocodone in the past with no problems. She does have a follow-up appointment scheduled with her primary care provider next week. She will return here for any worsening or new/concerning symptoms. [place] Drug Monitoring Program Search Results: patient reviewed within database, no issues identified Medication Reconcilliation Current Medication List: was personally reviewed by me Blood Pressure Screening Patient's blood pressure: Normal blood pressure Impression Primary Impression: Lumbar back pain Departure Information Dispostion Home / Self-Care Condition GOOD Prescriptions Hydrocodone/Acetaminophen 5MG/325MG ([place] 5MG/325MG) Tab 1 TABLET PO Q4H Y for Pain, #10 TAB For Initial Treatment Prov: Lottie Platt .TOM 10/31/17 Prednisone (Prednisone Tab) 20 Mg Tab 0 PO DAILY, #14 TAB 3 TABS DAILY FOR 2 DAYS, THEN 2 TABS DAILY FOR 2 DAYS, THEN 1 TAB DAILY FOR 2 DAYS, THEN 1/2 TAB DAILY FOR 2 DAYS. Prov: Lottie Platt PA-C 10/31/17 Referrals No Doctor, Assigned (PCP) Patient Instructions My [facility] Additional Instructions You have been treated in the Emergency Department for Back Pain. You have been prescribed [place] to be used for pain control. This is a narcotic medication. You cannot drive or consume alcohol while on this medicine. This medicine should only be used for pain that cannot be controlled with over-the- counter pain medicines. You have been prescribed Prednisone. This is a steroid which will help decrease your inflammation and back pain. Take this medicine as prescribed. It is best to take steroids early in the morning as PM dosing can affect your sleeping patterns. Make sure to check your blood sugars closely while taking this medication, as the steroid can affect your blood sugar. For pain control, you can use the following [id number] medicines (if >12 yo): - Regular strength (325mg/tab) Tylenol (acetaminophen) 2 tabs every 4-6 hours as needed. Do not exceed 12 tablets in a 24 hour period. Avoid taking more than 4 grams (4000 mg) of Tylenol per day. This includes any other sources of acetaminophen you may take on a regular basis. If this is an acute injury, ice can be applied to the area of pain for the first 3 days to help decrease pain and inflammation. After the first 3 days, a heating pad can be used over the area for continued soothing relief. You should schedule a follow-up appointment in 2-3 days with your Primary Care Provider for further evaluation and treatment of your back pain. Return to the Emergency Department if your current symptoms worsen despite treatment course outlined above, or if you develop any of the following symptoms : intractable pain despite aforementioned treatment course, loss of control of your bowel or bladder, numbness or tingling in your groin, or development of a fever.
== END 2017-10-31 14:00 | disposition home or self-care (01) ==
LOC: C.EDB 13:21 → C.EDA 14:00
DX: M54.5 Low back pain (principal); F31.9 Bipolar disorder, unspecified; J45.909 Unspecified asthma, uncomplicated; K57.90 Diverticulosis of intestine, part unspecified, without perforation or abscess without bleeding; K58.9 Irritable bowel syndrome, unspecified; E11.40 Type 2 diabetes mellitus with diabetic neuropathy, unspecified; E11.10 Type 2 diabetes mellitus with ketoacidosis without coma; Z79.4 Long term (current) use of insulin; Z79.82 Long term (current) use of aspirin; K21.9 Gastro-esophageal reflux disease without esophagitis; E78.5 Hyperlipidemia, unspecified; E66.01 Morbid (severe) obesity due to excess calories; Z90.710 Acquired absence of both cervix and uterus; Z90.49 Acquired absence of other specified parts of digestive tract; Z98.51 Tubal ligation status; Z86.73 Personal history of transient ischemic attack (TIA), and cerebral infarction without residual deficits; Z87.442 Personal history of urinary calculi; Z83.3 Family history of diabetes mellitus; Z83.79 Family history of other diseases of the digestive system; Z83.6 Family history of other diseases of the respiratory system; Z82.49 Family history of ischemic heart disease and other diseases of the circulatory system; Z82.0 Family history of epilepsy and other diseases of the nervous system; Z88.6 Allergy status to analgesic agent

== ENCOUNTER 2017-11-18 10:23 | Emergency (ER) | payer OTHER ==
[~2017-11-18] VITALS: Ht 160 cm; Wt 117.3 kg
[~2017-11-18 10:23] MED LIST changes: +HYDR-5688 PO; +PRED20TA2 PO
[2017-11-18 10:26] VITALS: Ht 160 cm; Wt 117.3 kg
[2017-11-18] MEDS ORDERED: OFLOXACIN 0.3% OP SOLN 5 ML BTL OTR STA (11:32)
--- NOTE | 2017-11-18 11:36 | EMERGENCY ROOM VISIT NOTE ---
History First contact with patient: 10:32 Chief Complaint: EAR PAIN Stated Complaint: EAR PAIN History of Present Illness The patient is a 42 year old female who presents to the Emergency Room via private vehicle with complaints of "ear pain". The patient states that she has been experiencing left-sided ear pain for the past few days. There is no trauma or injury that she is aware of. No fevers or chills. She denies any other symptoms other than perhaps a minimal headache which is associated with this. She points to just inside the left ear canal is a location of pain that she rates as a 7/10. Review of Systems A complete 6-point Review of Systems was discussed with the patient, with pertinent positives and negatives listed in the History of Present Illness. All remaining Review of Systems questions can be considered negative unless otherwise specified. Past Medical/Surgical History Medical Problems: (1) Asthma (2) ASTHMA, UNSPECIFIED (3) BIPOLAR DISORDER, UNSPECIFIED (4) DIAB NIKHIL WO COMPL, TYPE II OR UNSPEC TYPE, NOT UNCNTRLD (5) Diabetic neuropathy (6) DIVERTICULOSIS COLON (W/O MENT OF HEMORRHAGE) (7) DKA (diabetic ketoacidoses) (8) Endometriosis (9) ESOPHAGEAL REFLUX (10) Gallstone (11) Gastritis (12) Hiatal hernia (13) Hyperlipidemia (14) IBS (irritable bowel syndrome) (15) MIGRAINE UNSPECIFIED W/O INTRACTABLE MIGRAINE (16) MORBID OBESITY (17) Ovarian cyst (18) Sciatica (19) TIA (transient ischemic attack) (20) Vertigo Surgical Problems: (1) H/O: hysterectomy (2) History of cholecystectomy (3) TUBAL LIGATION STATUS Family History Diabetes mellitus FH: gallbladder disease FH: lung disease FH: seizures Heart disease Hypertension Social History Smoking Status: Never Smoker Alcohol Use: none Drug Use: none Marital Status: in relationship Housing Status: lives with family Occupation Status: unemployed Current/Historical Medications Scheduled Amitriptyline HCl (Amitriptyline HCl), 50 MG PO HS Aspirin (Aspirin Ec), 81 MG PO HS Bupropion (Wellbutrin Sr), 100 MG PO QPM Cholecalciferol (Vitamin D3), 1,000 UNITS PO HS Diclofenac Sod (Diclofenac Sodium Dr), 50 MG PO HS Fluticasone Prop/Salmeterol (Advair Diskus 250/50 60 Dose), 1 PUFF INH BID Gabapentin (Gabapentin), 900 MG PO HS Insulin Aspart (Novolog Flexpen), 40-50 UNITS SC WITH MEALS & SNACKS Insulin Glargine (Toujeo Solostar), 65 UNITS SQ HS Levothyroxine Sodium (Levothyroxine Sodium), 75 MCG PO QAM Lisinopril (Lisinopril), 2.5 MG PO HS Metformin Hcl (Glucophage), 2,000 MG PO QPM Multiple Vitamins W/ Minerals (Womens One Daily), 1 TAB PO QPM Olanzapine (Zyprexa), 20 MG PO HS Ondasetron Odt (Zofran Odt), 4 MG SL Q6H Polyethylene Glycol 3350 (Miralax), 17 GM PO HS Ranitidine Hcl (Zantac), 300 MG PO HS Simvastatin (Simvastatin), 20 MG PO HS Zolpidem Tartrate (Zolpidem Tartrate), 10 MG PO HS Scheduled PRN Albuterol Sulfate (Proventil Hfa), 2 PUFFS INH Q4-6HRS PRN for Asthma Symptoms Diphenhydramine Hcl (Benadryl Allergy), 25 MG PO HS PRN for Sleep Docusate Sodium (Colace), 100 MG PO BID PRN for Constipation Fluticasone Propionate (Fluticasone Propionate), 2 SPRAYS ROLY DAILY PRN for Allergy Symptoms Hydrocodone/Acetaminophen 5MG/325MG ([place] 5MG/325MG), 1 TABLET PO Q4H PRN for Pain Ibuprofen (Advil), 800 MG PO DAILY PRN for Headache or Pain Ipratropium-Albuterol (Duoneb), 1 TREATMENT INH Q4H PRN for SOB/Wheezing Loratadine (Claritin), 10 MG PO DAILY PRN for Allergy Symptoms Lorazepam (Lorazepam), 0.5 MG PO DAILY PRN for Anxiety Pantoprazole (Pantoprazole Sodium), 40 MG PO DAILY PRN for Constipation Physical Exam Vital Signs Date Time Temp Pulse Resp B/P (MAP) Pulse Ox O2 Delivery O2 Flow Rate FiO2 11/18/17 11:58 36.8 88 18 110/78 96 11/18/17 11:57 88 18 110/78 96 Room Air 11/18/17 10:26 36.8 94 18 107/77 96 Room Air Physical Exam VITAL SIGNS - Vital signs and nursing notes were reviewed. Stable. GENERAL -42 year old female appearing her stated age who is in no acute distress. Communicates well with provider and answers questions appropriately. SKIN - Without rashes. L ear unremarkable. No mastoid tenderness. HEAD - NC/AT. EYES - PERRL with EOMI bilaterally. Sclera anicteric. EARS - No deformities of external structures noted on gross examination bilaterally. Right ear canal elicits cerumen which obscures the TM. Left ear canal also elicits cerumen but canal is visualized and within normal limits. No evidence of infection in either canal. No mastoid tenderness on the left. NOSE - Midline and without cyanosis. No epistaxis or purulent drainage noted. MOUTH/OROPHARYNX - Without perioral cyanosis. Buccal mucosa pink and moist and without leukoplakia. Tongue midline with equal elevation of palate bilaterally. No tonsillar hypertrophy, erythema, or exudates noted. Fair dentition noted. Medical Decision & Procedures Medications Administered Medications (Trade) Dose Ordered Sig/Moon Route Start Time Stop Time Status Last Admin Dose Admin Ofloxacin (Ocuflox 0.3% Oph Soln) 10 drops NOW STAT OTR 11/18/17 11:32 11/18/17 11:34 DC 11/18/17 11:57 10 DROPS Medical Decision Patient was seen and evaluated as above. She presents to us today with left ear discomfort review was performed of nursing notes and vital signs. After obtaining a thorough history and physical examination it was evident the patient was likely experiencing pain from cerumen pressing against her TM on the left with ear canal irritation secondary to the amount of cerumen within the left ear canal. Benefit versus risk of irrigation was discussed and the decision was made to irrigate left ear canal. This was done with room temperature water with Luer-Murtaza 60 cc syringe. Patient tolerated this very well. A small curette was utilized to remove debris from the external canal. Care was taken so as to not damage the TM. After thorough cleansing, the TM was completely visualized and was within normal limits. Perhaps a small amount of serous fluid behind the TM but otherwise unremarkable. Minimal irritation of the left ear canal. Decision was made to place the patient upon ofloxacin eardrops in the event that there could be an infection develop from the irritation in the left ear canal. She is to follow with her family doctor or return with worsening. She felt much better. The patient was educated upon management, had questions answered prior to discharge, and was discharged home in good condition. Medication list reviewed. Blood pressure reviewed and was within normal limits. In the evaluation and treatment of this patient the following differential diagnoses were entertained: Otitis media, otitis externa, cerumen impaction, among others. Impression Primary Impression: Impacted cerumen of left ear Departure Information Dispostion Home / Self-Care Condition GOOD Referrals Lilibeth Sharma MD (PCP) Patient Instructions My [facility] Additional Instructions You have been treated in the Emergency Department for an wax buildup in your left ear canal. You were prescribed ofloxacin to be taken as 10 drops in the left ear once daily for 7 days. This is an antibiotic to help prevent infection in your left ear after cleaning. Stop this medication and contact a medical provider if you were to develop any significant adverse side effects including: wheezing, shortness of breath, passing out, vomiting, or a diffuse rash. Always take antibiotics as directed and COMPLETE the ENTIRE course regardless of the improvement of your symptoms. For pain and fever control, you can use the following [id number] medicines : - Regular strength (325mg/tab) Tylenol (acetaminophen) 2 tabs every 4-6 hours as needed. Do not exceed 12 tablets in a 24 hour period. Avoid taking more than 3 grams (3000 mg) of Tylenol per day. This includes any other sources of acetaminophen you may take on a regular basis. - Regular strength (200 mg/tab) Advil (ibuprofen) 1-2 tabs every 4-6 hours as needed. Do not exceed a dose of 3200 mg per day. You should follow-up with your Primary Care Provider from today's Emergency Department visit. Return to the emergency department if you develop the following symptoms despite treatment course outlined above: headache, fever, intractable pain, increased redness, swelling, or purulent discharge.
[2017-11-18 11:58] VITALS: BP 110/78; PULSE 88; TEMP 36.8; O2SAT 96
== END 2017-11-18 11:59 | disposition home or self-care (01) ==
LOC: C.EDB 10:24 → C.EDD 11:59
DX: H61.22 Impacted cerumen, left ear (principal); J45.909 Unspecified asthma, uncomplicated; F31.9 Bipolar disorder, unspecified; E11.9 Type 2 diabetes mellitus without complications; K21.9 Gastro-esophageal reflux disease without esophagitis; E78.5 Hyperlipidemia, unspecified; K58.9 Irritable bowel syndrome, unspecified; E66.9 Obesity, unspecified; Z86.73 Personal history of transient ischemic attack (TIA), and cerebral infarction without residual deficits; Z83.3 Family history of diabetes mellitus; Z82.0 Family history of epilepsy and other diseases of the nervous system; Z82.49 Family history of ischemic heart disease and other diseases of the circulatory system; Z79.82 Long term (current) use of aspirin; Z79.4 Long term (current) use of insulin

== ENCOUNTER 2017-12-21 14:17 | Emergency (ER) | payer OTHER ==
[~2017-12-21] VITALS: Ht 160 cm; Wt 119.2 kg
[~2017-12-21 14:17] MED LIST changes: -PRED20TA2 PO
[2017-12-21 14:36] VITALS: Ht 160 cm; Wt 119.2 kg
[2017-12-21] MEDS ORDERED: ONDANSETRON INJ 2 MG/ML 2 ML VIAL IV STA (16:51)
[2017-12-21] MEDS ORDERED: SODIUM CHLORIDE 0.9% 1000ML 1,000 ML IV STA (16:51)
[2017-12-21] MEDS ORDERED: FENTANYL CITRATE INJ 50 MCG/1 ML 2 ML VIAL IV ONE (17:00)
[2017-12-21] MEDS ORDERED: OPTIRAY 320 IV PRN (17:00)
[2017-12-21 17:01] LABS: BASO % 0.2 %; BASO ABS # 0.02 K/uL (0-0.2); EOS % 2.5 %; EOS ABS # 0.23 K/uL (0-0.5); HEMATOCRIT 41.5 % (37-47); HEMOGLOBIN 14.2 g/dL (12.0-16.0); IG# 0.03 K/uL (0.00-0.02); LYMPH % 26.4 %; LYMPH ABS # 2.46 K/uL (1.2-3.4); MEAN CORPUSCULAR HEMOGLOBIN 28.4 pg (25-34); MEAN CORPUSCULAR HGB CONC 34.2 g/dl (32-36); MEAN PLATELET VOLUME 8.9 fL (7.4-10.4); MONO % 5.4 %; NEUT % 65.2 %; NEUT ABS # 6.09 K/uL (1.4-6.5); PLATELET COUNT 308 K/uL (130-400); RED CELL DISTRIBUTION WIDTH CV 13.3 % (11.5-14.5); WHITE BLOOD COUNT 9.33 K/uL (4.8-10.8)
[2017-12-21] MEDS ORDERED: ATOR-22 PO (17:10)
[2017-12-21] MEDS ORDERED: ARIP1TAB15 PO (17:10)
[2017-12-21 17:21] LABS: ALBUMIN 3.5 gm/dl (3.4-5.0); CALCIUM 9.2 mg/dl (8.5-10.1); CREATININE 0.73 mg/dl (0.60-1.20)
[2017-12-21 17:24] LABS: TOTAL PROTEIN 7.7 gm/dl (6.4-8.2)
--- NOTE | 2017-12-21 18:32 | DIAGNOSTIC IMAGING REPORT ---
ABDOMEN AND PELVIS CT WITH IV CONTRAST CT DOSE: 1077.42 mGycm HISTORY: Acute right lower quadrant abdominal pain with radiation into the back. Acute nausea. RLQ pain radiating into back TECHNIQUE: Multiaxial CT images of the abdomen and pelvis were performed following the use of intravenous contrast. A dose lowering technique was utilized adhering to the principles of ALARA. COMPARISON STUDY: CT 10/17/2016 FINDINGS: The lung bases are generally clear. Minimal subsegmental groundglass opacities of the left lower lobe suggest atelectasis. 2 mm solid nodule is noted within the lateral basal left lower lobe. There is no pneumatosis or pneumoperitoneum identified. The imaged inferior cardiac chambers are unremarkable. Prior cholecystectomy. Suggestion of hepatic steatosis with hepatomegaly. The spleen, pancreas and adrenal glands are within normal limits. Kidneys, ureters and urinary bladder are unremarkable. Prior hysterectomy. No adnexal mass lesions. Aorta is normal in course and caliber. No bulky adenopathy. There is no bowel obstruction or focal bowel wall thickening identified. Normal appendix. 6 mm high attenuating focus within the splenic flexure suggests ingested material. Soft tissues are unremarkable. Bones are unremarkable. 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 Remote bilateral pars defects at L5. IMPRESSION: 1. No acute intra-abdominal or intrapelvic abnormality identified. Normal appendix. 2. Prior cholecystectomy and hysterectomy. 3. Hepatic steatosis. 4. Remote bilateral pars defects at L5. Electronically signed by: Glen Lee M.D. 12/21/2017 6:30 PM Dictated Date/Time: 12/21/2017 6:23 PM
[2017-12-21 19:22] VITALS: BP 134/98; PULSE 90; O2SAT 98
--- NOTE | 2017-12-22 00:35 | EMERGENCY ROOM VISIT NOTE ---
ED Visit Note First contact with patient: 16:28 Chief Complaint: Right belly pain. History of Present Illness: Ms. Ramos is a 42 year-old white female who ambulates into the ED complaining of right lower quadrant abdominal pain. Historically patient reports she has a history of endometriosis, diverticulosis , esophageal reflux, gastritis, hiatal hernia, irritable bowel syndrome, ovarian cysts, sciatica, status post hysterectomy, tubal ligation, and cholecystectomy. Patient reports a gradual onset of right lower quadrant abdominal pain that started approximately 16 hours ago. Since that time the pain has been constant. The pain is located in the upper and lateral border of the quadrant. The pain is currently described as sharp and stabbing. She rates the discomfort 6.5/10. The pain is radiating lateral aspect of the right lower quadrant. She has not identified any aggravating or alleviating factors related to the pain. Associated with her pain she reports she has been having intermittent chills and nausea without vomiting. In the nurse's note they report that the patient stated that her pain is radiating into her leg; I question the pain she denied true radiation of pain but does report that when she ambulates she develops a numbness and tingling sensation in the leg that seems to start just inferior to the area of her pain. This numbness and tingling sensation is in the entire leg with ambulation and present locally when at rest. Patient denies fevers, sweats, skin eruptions, skin color changes, upper respiratory tract symptoms, shortness of breath, chest pain, diarrhea, constipation, rectal bleeding, black/tarry stools, urinary symptoms, hematuria, vaginal bleeding, vaginal discharge, genital paresthesias, bowel and bladder dysfunction, leg weakness. Review of Systems: As noted above in history of present illness. All body systems were reviewed and found to be negative as noted above. Past Medical History: As previously noted and asthma, diabetes, DKA, diabetic neuropathy, bipolar disorder, dyslipidemia, migraine headaches, TIA, vertigo, Current Medications: Medications Dose Route/Sig Max Daily Dose Days Date Category Dose Instructions Aripiprazole 10 Mg Tab 10 Mg PO DAILY 12/21/17 Reported Lipitor (Atorvastatin Calcium) 20 Mg Tab 20 Mg PO DAILY 12/21/17 Reported Zofran Odt (Ondansetron HCl) 4 Mg Tab 4 Mg SL Q6H 09/10/17 Rx Vitamin D3 (Cholecalciferol) 1,000 Unit Tab 1,000 Units PO HS 90 09/10/17 Reported Glucophage (Metformin Hcl) 1,000 Mg Tab 2,000 Mg PO QPM 04/20/17 Reported Proventil Hfa (Albuterol Sulfate) 108 Mcg/Act Aer 2 Puffs INH Q4-6HRS PRN 10/24/16 Reported Amitriptyline HCl 50 Mg Tab 50 Mg PO HS 10/24/16 Reported Zolpidem Tartrate 10 Mg Tab 10 Mg PO HS 10/24/16 Reported Womens One Daily (Multiple Vitamins W/ Minerals) 1 Tab Tab 1 Tab PO QPM 10/24/16 Reported Novolog Flexpen (Insulin Aspart) 100 Units/Ml Inj 45-60 Units SC WITH MEALS & SNACKS 10/24/16 Reported 60 units with meals, 45 units with snacks Pantoprazole Sodium (Pantoprazole) 40 Mg Tab 40 Mg PO DAILY PRN 10/24/16 Reported Levothyroxine Sodium 75 Mcg Tab 75 Mcg PO QAM 10/24/16 Reported Toujeo Solostar (Insulin Glargine) 300 Unit/Ml Inj 65 Units SQ HS 05/07/16 Reported Advil (Ibuprofen) 200 Mg Tab 800 Mg PO DAILY PRN 04/20/16 Reported Benadryl Allergy (Diphenhydramine Hcl) 25 Mg Cap 25 Mg PO HS PRN 01/25/16 Reported Duoneb (Ipratropium-Albuterol) 3 Ml Nebu 1 Treatment INH Q4H PRN 04/08/15 Reported Miralax (Polyethylene Glycol 3350) 1 Pow Pow 17 Gm PO HS 04/08/15 Reported Claritin (Loratadine) 10 Mg Tab 10 Mg PO DAILY PRN 03/30/[address] (Diclofenac Sod) 50 Mg [place] 50 Mg PO HS 03/30/15 Reported Zyprexa (Olanzapine) 20 Mg Tab 20 Mg PO HS 03/30/15 Reported Wellbutrin Sr (Bupropion HCl) 100 Mg Ertab 100 Mg PO QPM 03/30/15 Reported Lisinopril 2.5 Mg Tab 2.5 Mg PO HS 03/30/15 Reported Aspirin Ec (Aspirin) 81 Mg Tab 81 Mg PO HS 03/23/15 Reported Colace (Docusate Sodium) 100 Mg Cap 100 Mg PO BID PRN 03/04/15 Reported Zantac (Ranitidine Hcl) 300 Mg Tab 300 Mg PO HS 09/18/14 Reported Lorazepam 0.5 Mg Tab 0.5 Mg PO DAILY PRN 09/18/14 Reported Advair Diskus 250/50 60 Dose (Fluticasone Prop/Salmeterol) 1 Ea Aerp 1 Puff INH BID 06/27/14 Reported Gabapentin 300 Mg Cap 900 Mg PO HS 06/27/14 Reported Fluticasone Propionate 120 Sprays/6000 Mcg Inha 2 Sprays ROLY DAILY PRN 06/27/14 Reported Allergies to Medications: Citalopram, morphine. Social History: Patient is not employed; she feels safe in her home environment ; she denies tobacco and alcohol use. Physical Examination: Vital Signs: Date Time Temp Pulse Resp B/P (MAP) Pulse Ox O2 Delivery O2 Flow Rate FiO2 12/21/17 19:22 90 16 134/98 98 12/21/17 19:07 90 16 134/98 98 Room Air 12/21/17 19:03 96 12/21/17 18:39 81 16 140/101 99 Room Air 12/21/17 17:27 92 18 149/93 97 Room Air 12/21/17 16:28 36.9 102 20 136/86 96 Room Air 12/21/17 14:36 36.9 91 16 169/109 95 Room Air GENERAL: 42-year-old female in mild distress due to pain, nontoxic-appearing, afebrile and hemodynamically stable. NEUROLOGICAL: Awake, alert and oriented to person, place and time. Answering questions appropriately and following commands. Normal gait. Good hand eye coordination. SKIN: Warm, dry and pink. No soft tissue eruptions or trauma noted. HEENT: Atraumatic and normocephalic. PERRLA. Sclera white and conjunctiva pink. Oral cavity moist and pink. Pharynx is nonerythematous or edematous. Speech normal. No lymphadenopathy. Trachea midline. No jugular venous distention. BACK: No tenderness over the bony thoracic and lumbar spine. Negative straight leg raise test. No CVA tenderness. THORAX: Lungs sounds are clear to auscultation and equal bilaterally with symmetrical chest wall. No wheezing, rales or rhonchi. No crepitus, tenderness , subcutaneous air or deformities noted. HEART: Regular rate and rhythm. No gallops, rubs or murmurs are appreciated. ABDOMEN: Obese and soft with mild tenderness over the lateral upper border of the right lower quadrant; no tenderness over McBurney's point. Positive bowel sounds in all quadrants. No guarding, rigidity or organomegaly. EXTREMITIES: Moves all extremities well on command and with purpose. All distal neurovascular statuses are intact and equal bilaterally. Throughout the legs the skin was warm and pink and capillary refill was brisk. She is able to distinguish light sensations to all dermatomes. ED Course: Patient is assessed as noted above. Patient's medication list was reviewed. Laboratory Testing: Test 12/21/17 16:50 12/21/17 16:55 Range/Units White Blood Count 9.33 4.8-10.8 K/uL Red Blood Count 5.00 4.2-5.4 M/uL Hemoglobin 14.2 12.0-16.0 g/dL Hematocrit 41.5 37-47 % Mean Corpuscular Volume 83.0 80-100 fL Mean Corpuscular Hemoglobin 28.4 25-34 pg Mean Corpuscular Hemoglobin Concent 34.2 32-36 g/dl Platelet Count 308 130-400 K/uL Mean Platelet Volume 8.9 7.4-10.4 fL Neutrophils (%) (Auto) 65.2 % Lymphocytes (%) (Auto) 26.4 % Monocytes (%) (Auto) 5.4 % Eosinophils (%) (Auto) 2.5 % Basophils (%) (Auto) 0.2 % Neutrophils # (Auto) 6.09 1.4-6.5 K/uL Lymphocytes # (Auto) 2.46 1.2-3.4 K/uL Monocytes # (Auto) 0.50 0.11-0.59 K/uL Eosinophils # (Auto) 0.23 0-0.5 K/uL Basophils # (Auto) 0.02 0-0.2 K/uL RDW Standard Deviation 40.0 36.4-46.3 fL RDW Coefficient of Variation 13.3 11.5-14.5 % Immature Granulocyte % (Auto) 0.3 % Immature Granulocyte # (Auto) 0.03 0.00-0.02 K/uL Sodium Level 137 136-145 mmol/L Potassium Level 4.0 3.5-5.1 mmol/L Chloride Level 101 98-107 mmol/L Carbon Dioxide Level 29 21-32 mmol/L Anion Gap 6.0 3-11 mmol/L Blood Urea Nitrogen 9 7-18 mg/dl Creatinine 0.73 0.60-1.20 mg/dl Est Creatinine Clear Calc Drug Dose 122.8 ml/min Estimated GFR () 116.1 Estimated GFR (Non- 100.2 BUN/Creatinine Ratio 12.6 10-20 Random Glucose 182 70-99 mg/dl Calcium Level 9.2 8.5-10.1 mg/dl Total Bilirubin 0.3 0.2-1 mg/dl Direct Bilirubin 0.1 0-0.2 mg/dl Aspartate Amino Transf (AST/SGOT) 18 15-37 U/L Alanine Aminotransferase (ALT/SGPT) 30 12-78 U/L Alkaline Phosphatase 116 45-117 U/L Total Protein 7.7 6.4-8.2 gm/dl Albumin 3.5 3.4-5.0 gm/dl Lipase 126 73-393 U/L Urine Color YELLOW Urine Appearance CLEAR CLEAR Urine pH 5.0 4.5-7.5 Urine Specific [place] 1.022 1.000-1.030 Urine Protein NEG NEG Urine Glucose (UA) TRACE NEG Urine Ketones NEG NEG Urine Occult Blood NEG NEG Urine Nitrite NEG NEG Urine Bilirubin NEG NEG Urine Urobilinogen NEG NEG Urine Leukocyte Esterase NEG NEG IV Contrast Abdominal/Pelvic CT: Was reviewed by myself and read by the radiologist showing no acute intra-abdominal or intrapelvic abnormalities, normal-appearing appendix, prior cholecystectomy and hysterectomy, hepatic steatosis, and remote bilateral pars deficit at L5. Patient was hydrated with normal saline and she received 50 mcg of fentanyl IV and 4 mg of Zofran IV. Patient was reassessed multiple times during her stay in the emergency department. Patient's case was reviewed with Dr. Villatoro; we agreed on diagnostic approach, treatment, disposition and plan Patient was educated about today's findings and instructed on her treatment plan ; she verbalized understanding and agreement with this plan. Clinical Impression: Right lower quadrant abdominal pain. Right leg numbness/ tingling. Decision-Making: Initially my differential diagnosis I considered acute appendicitis, bowel obstruction, constipation, lumbar disc herniation, sciatica and other causes. Disposition: Patient discharged home in stable condition accompanied by her ; prior to departure she was reassessed and subjectively reported she was feeling much better and rated her discomfort 3/10. Plan: Patient was encouraged alternate ibuprofen and acetaminophen every 3 hours as needed for persistent pain. Patient was encouraged to stay well-hydrated. Patient was encouraged to use a bland diet for the next 48 hours. Patient was encouraged to contact her PCP for follow-up care and treatment and possible referral for MRI. Patient was encouraged return the ED for worsening/uncontrolled pain, uncontrolled vomiting, bloody vomitus, bloody stools, fevers, worsening leg numbness/tingling, genital paresthesias, bowel and bladder dysfunction or any new/concerning symptoms.
== END 2017-12-21 19:19 | disposition home or self-care (01) ==
LOC: C.EDB 14:18
DX: R10.31 Right lower quadrant pain (principal); R20.0 Anesthesia of skin; R11.0 Nausea; K21.9 Gastro-esophageal reflux disease without esophagitis; K29.70 Gastritis, unspecified, without bleeding; K44.9 Diaphragmatic hernia without obstruction or gangrene; K58.9 Irritable bowel syndrome, unspecified; E11.40 Type 2 diabetes mellitus with diabetic neuropathy, unspecified; J45.909 Unspecified asthma, uncomplicated; E11.10 Type 2 diabetes mellitus with ketoacidosis without coma; E78.5 Hyperlipidemia, unspecified; Z79.84 Long term (current) use of oral hypoglycemic drugs; Z79.4 Long term (current) use of insulin; Z79.82 Long term (current) use of aspirin; Z79.899 Other long term (current) drug therapy; Z90.49 Acquired absence of other specified parts of digestive tract

== ENCOUNTER 2017-12-26 11:07 | Emergency (ER) | payer OTHER ==
[~2017-12-26] VITALS: Ht 160 cm; Wt 116.0 kg
[~2017-12-26 11:07] MED LIST changes: +ARIP1TAB15 PO; +ATOR-22 PO; -HYDR-5688 PO; -SIMV-151 PO
[2017-12-26 11:08] VITALS: TEMP 36.7; Ht 160 cm; Wt 116.0 kg
[2017-12-26] MEDS ORDERED: LORATADINE 10 MG TAB PO STA (11:51)
[2017-12-26] MEDS ORDERED: KETOROLAC TROMETHAMINE 30 MG/ML VIAL IV STA (11:51)
--- NOTE | 2017-12-26 11:58 | EMERGENCY ROOM VISIT NOTE ---
History First contact with patient: 11:27 Chief Complaint: FLANK PAIN Stated Complaint: BREATHING AND KIDNEYS,EAR History of Present Illness The patient is a 42 year old female who presents to the Emergency Room with complaints of right flank pain and right earache. The patient states she has been experiencing right flank pain 2 days. The pain occurred spontaneously while driving. She states that has been ongoing, but does get better with lying on the left side. The patient states a few days ago, she was here for right lower quadrant pain, and this pain is completely different as it is all in her back. The patient does report some difficulty taking a deep breath which she associates with the right ear discomfort. She reports a muffled sound in that ear. She denies any wheezing or dyspnea. She describes the pain in her flank as a jabbing sensation and rates at 4/10. She does have a history of stones, and states all the pain is similar, previously with kidney stones she was having dysuria and hematuria. She denies any associated symptoms including diarrhea, constipation, nausea, vomiting, abdominal pain, chest pain, dizziness, or cough. She denies any dysuria, hematuria, urinary frequency, or hesitancy. She does report history of seasonal allergies, does get occasional ear pain with that. She denies any recent congestion, sore throat, or wheezing. She did take Advil yesterday, and states it did help with her pain. She has been taking Benadryl, which does mildly help with the discomfort in the ear. Review of Systems A complete 10 point review of systems was reviewed with the patient with pertinent positives and negatives as per history of present illness. All else were negative. Past Medical/Surgical History Medical Problems: (1) Asthma (2) ASTHMA, UNSPECIFIED (3) BIPOLAR DISORDER, UNSPECIFIED (4) DIAB NIKHIL WO COMPL, TYPE II OR UNSPEC TYPE, NOT UNCNTRLD (5) Diabetic neuropathy (6) DIVERTICULOSIS COLON (W/O MENT OF HEMORRHAGE) (7) DKA (diabetic ketoacidoses) (8) Endometriosis (9) ESOPHAGEAL REFLUX (10) Gallstone (11) Gastritis (12) Hiatal hernia (13) Hyperlipidemia (14) IBS (irritable bowel syndrome) (15) MIGRAINE UNSPECIFIED W/O INTRACTABLE MIGRAINE (16) MORBID OBESITY (17) Ovarian cyst (18) Sciatica (19) TIA (transient ischemic attack) (20) Vertigo Surgical Problems: (1) H/O: hysterectomy (2) History of cholecystectomy (3) TUBAL LIGATION STATUS Family History Diabetes mellitus FH: gallbladder disease FH: lung disease FH: seizures Heart disease Hypertension Social History Smoking Status: Never Smoker Alcohol Use: none Drug Use: none Marital Status: in relationship Housing Status: lives with family Occupation Status: unemployed Current/Historical Medications Scheduled Amitriptyline HCl (Amitriptyline HCl), 100 MG PO HS Aripiprazole (Aripiprazole), 10 MG PO HS Aspirin (Aspirin Ec), 81 MG PO HS Atorvastatin (Lipitor), 20 MG PO HS Bupropion (Wellbutrin Sr), 100 MG PO QPM Cephalexin Monohydrate (Keflex), 500 MG PO QID Cholecalciferol (Vitamin D3), 1,000 UNITS PO HS Diclofenac Sod (Diclofenac Sodium Dr), 50 MG PO HS Fluticasone Prop/Salmeterol (Advair Diskus 250/50 60 Dose), 1 PUFF INH BID Gabapentin (Gabapentin), 900 MG PO HS Insulin Aspart (Novolog Flexpen), 45-60 UNITS SC WITH MEALS & SNACKS Insulin Glargine (Toujeo Solostar), 65 UNITS SQ HS Levothyroxine Sodium (Levothyroxine Sodium), 75 MCG PO QAM Lisinopril (Lisinopril), 2.5 MG PO HS Metformin Hcl (Glucophage), 2,000 MG PO QPM Multiple Vitamins W/ Minerals (Womens One Daily), 1 TAB PO QPM Olanzapine (Zyprexa), 20 MG PO HS Ondasetron Odt (Zofran Odt), 4 MG SL Q6H Polyethylene Glycol 3350 (Miralax), 17 GM PO HS Ranitidine Hcl (Zantac), 300 MG PO HS Zolpidem Tartrate (Zolpidem Tartrate), 10 MG PO HS Scheduled PRN Albuterol Sulfate (Proventil Hfa), 2 PUFFS INH Q4-6HRS PRN for Asthma Symptoms Diphenhydramine Hcl (Benadryl Allergy), 25 MG PO HS PRN for Allergic Reaction Docusate Sodium (Colace), 100 MG PO BID PRN for Constipation Fluticasone Propionate (Fluticasone Propionate), 2 SPRAYS ROLY DAILY PRN for Allergy Symptoms Ibuprofen (Advil), 800 MG PO DAILY PRN for Headache or Pain Ipratropium-Albuterol (Duoneb), 1 TREATMENT INH Q4H PRN for SOB/Wheezing Loratadine (Claritin), 10 MG PO DAILY PRN for Allergy Symptoms Lorazepam (Lorazepam), 0.5 MG PO DAILY PRN for Anxiety Pantoprazole (Pantoprazole Sodium), 40 MG PO HS PRN for reflux Physical Exam Vital Signs Date Time Temp Pulse Resp B/P (MAP) Pulse Ox O2 Delivery O2 Flow Rate FiO2 12/26/17 14:57 75 16 139/92 98 12/26/17 13:53 88 16 111/87 97 12/26/17 13:04 76 16 116/76 98 Room Air 12/26/17 11:08 36.7 98 20 132/90 95 Room Air Physical Exam VITALS: Vitals are noted on the nurse's note and reviewed by myself. Vital signs stable. GENERAL: This is a 42-year-old obese white female, in no acute distress, nondiaphoretic, well-developed well-nourished. SKIN: The skin was without rashes, erythema, edema, or bruising. There is no tenting of the skin. Capillary reflex less than 2 seconds. HEAD: Normocephalic atraumatic. EARS: External auditory canals clear, left tympanic membrane pearly santizo without erythema or effusion. Right TM mildly erythematous, but no effusion or injection noted. EYES: Pupils equal round and reactive to light and accommodation. Conjunctivae without injection, sclerae without icterus. Extraocular movements intact. NOSE: Patent, turbinates without inflammation or discharge. No sinus tenderness. MOUTH: Mucous membranes moist. Tonsils are not enlarged. Pharynx without erythema or exudate. Uvula midline. Airway patent. Tongue does not deviate. NECK: Supple without nuchal rigidity. No lymphadenopathy. No thyromegaly. Cervical spine is nontender. No JVD. HEART: Regular rate and rhythm without murmurs gallops or rubs. LUNGS: Clear to auscultation bilaterally without wheezes, rales or rhonchi. No dullness to percussion. No retractions or accessory muscle use. ABDOMEN: Positive bowel sounds x 4. Normal tympanic percussion. Soft, nontender, without masses or organomegaly. Veronica sign negative. No guarding or rebound tenderness. Positive CVA tenderness on the right MUSCULOSKELETAL: No muscle atrophy, erythema, or edema noted. Full range of motion without joint tenderness in all extremities. No tenderness to palpation. Normal gait. Strength 5/5 throughout. NEURO: Patient was alert and oriented to person place and time. Normal sensation to light and sharp touch. Deep tendon reflexes 2+ throughout. No focal neurological deficits. Medical Decision & Procedures ER Provider Diagnostic Interpretation: KUB CLINICAL HISTORY: right flank pain pain COMPARISON STUDY: 02/12/2015 FINDINGS: Kidneys are obscured by overlying bowel content. There has been a prior cholecystectomy. There are several vascular calcifications of the right soft tissue pelvis unchanged from the prior study. The bowel pattern is nonobstructive. IMPRESSION: 1. Negative abdomen. 2. Renal shadows are obscured by overlying bowel content. The above report was generated using voice recognition software. It may contain grammatical, syntax or spelling errors. Electronically signed by: Torey Ramirez M.D. 12/26/2017 12:26 PM Dictated Date/Time: 12/26/2017 12:26 PM RENAL ULTRASOUND HISTORY: right flank pain COMPARISON: Abdomen and pelvis CT 12/21/2017. FINDINGS: Right kidney: 12 cm. No hydronephrosis. Normal corticomedullary differentiation and cortical thickness. Left kidney: 12 cm. No hydronephrosis. Normal corticomedullary differentiation and cortical thickness. Bladder: No bladder wall thickening. Not well distended. The ureteral jets are not identified. Miscellaneous: Hepatic steatosis. IMPRESSION: Normal renal ultrasound. Electronically signed by: Neftali Nascimento M.D. 12/26/2017 1:54 PM Dictated Date/Time: 12/26/2017 1:53 PM Laboratory Results 12/26/17 12:00 Red Blood Count 4.81, Mean Corpuscular Volume 84.0, Mean Corpuscular Hemoglobin 28.3, Mean Corpuscular Hemoglobin Concent 33.7, Mean Platelet Volume 8.9, Neutrophils (%) (Auto) 74.0, Lymphocytes (%) (Auto) 19.6, Monocytes (%) (Auto) 4.4, Eosinophils (%) (Auto) 1.5, Basophils (%) (Auto) 0.2, Neutrophils # (Auto) 7.34, Lymphocytes # (Auto) 1.95, Monocytes # (Auto) 0.44, Eosinophils # (Auto) 0.15, Basophils # (Auto) 0.02 12/26/17 12:00 Test 12/26/17 12:00 White Blood Count 9.93 K/uL (4.8-10.8) Red Blood Count 4.81 M/uL (4.2-5.4) Hemoglobin 13.6 g/dL (12.0-16.0) Hematocrit 40.4 % (37-47) Mean Corpuscular Volume 84.0 fL (80-100) Mean Corpuscular Hemoglobin 28.3 pg (25-34) Mean Corpuscular Hemoglobin Concent 33.7 g/dl (32-36) Platelet Count 261 K/uL (130-400) Mean Platelet Volume 8.9 fL (7.4-10.4) Neutrophils (%) (Auto) 74.0 % Lymphocytes (%) (Auto) 19.6 % Monocytes (%) (Auto) 4.4 % Eosinophils (%) (Auto) 1.5 % Basophils (%) (Auto) 0.2 % Neutrophils # (Auto) 7.34 K/uL (1.4-6.5) Lymphocytes # (Auto) 1.95 K/uL (1.2-3.4) Monocytes # (Auto) 0.44 K/uL (0.11-0.59) Eosinophils # (Auto) 0.15 K/uL (0-0.5) Basophils # (Auto) 0.02 K/uL (0-0.2) RDW Standard Deviation 40.7 fL (36.4-46.3) RDW Coefficient of Variation 13.4 % (11.5-14.5) Immature Granulocyte % (Auto) 0.3 % Immature Granulocyte # (Auto) 0.03 K/uL (0.00-0.02) Urine Color DK YELLOW Urine Appearance CLOUDY (CLEAR) Urine pH 5.0 (4.5-7.5) Urine Specific [place] 1.035 (1.000-1.030) Urine Protein NEG (NEG) Urine Glucose (UA) TRACE (NEG) Urine Ketones NEG (NEG) Urine Occult Blood NEG (NEG) Urine Nitrite NEG (NEG) Urine Bilirubin NEG (NEG) Urine Urobilinogen NEG (NEG) Urine Leukocyte Esterase NEG (NEG) Urine WBC (Auto) 5-10 /hpf (0-5) Urine RBC (Auto) 0-4 /hpf (0-4) Urine Hyaline Casts (Auto) 1-5 /lpf (0-5) Urine Epithelial Cells (Auto) >30 /lpf (0-5) Urine Bacteria (Auto) 2+ (NEG) Urine Crystals (NONE PRSENT) Anion Gap 5.0 mmol/L (3-11) Est Creatinine Clear Calc Drug Dose 100.2 ml/min Estimated GFR () 92.6 Estimated GFR (Non- 79.9 BUN/Creatinine Ratio 12.5 (10-20) Calcium Level 8.8 mg/dl (8.5-10.1) Total Bilirubin 0.4 mg/dl (0.2-1) Aspartate Amino Transf (AST/SGOT) 22 U/L (15-37) Alanine Aminotransferase (ALT/SGPT) 34 U/L (12-78) Alkaline Phosphatase 111 U/L (45-117) Total Protein 7.7 gm/dl (6.4-8.2) Albumin 3.4 gm/dl (3.4-5.0) Globulin 4.3 gm/dl (2.5-4.0) Albumin/Globulin Ratio 0.8 (0.9-2) Medications Administered Medications (Trade) Dose Ordered Sig/Moon Route Start Time Stop Time Status Last Admin Dose Admin Ketorolac Tromethamine (Toradol Inj) 30 mg NOW STAT IV 12/26/17 11:51 12/26/17 11:53 DC 12/26/17 12:07 30 MG Loratadine (Claritin Tab) 10 mg NOW STAT PO 12/26/17 11:51 12/26/17 11:53 DC 12/26/17 12:08 10 MG ED Course The patient was seen and evaluated as above. IV access obtained, labs drawn. The patient was given 30 mg Toradol IV and Claritin at her request. KUB and retroperitoneal ultrasound performed. These were reviewed by myself and radiologist as above. All labs reviewed by myself. I discussed the case with Dr. Hawkins. I discussed the findings with the patient at bedside. She reports feeling significantly better. The patient was seen and evaluated independently by Dr. Hawkins. Discharge instructions reviewed, patient was discharged home in good condition. Medical Decision This is a 42-year-old female patient presents to the emergency department today complaining of right flank pain. She describes it as "like I was kicked in the kidneys". The pain began spontaneously. Her workup here in the emergency department was overall negative. CBC was without leukocytosis, anemia, thrombocytopenia. Electrolytes were overall normal. Sodium was slightly low at 135. Random glucose elevated at 230. Renal and hepatic function were normal. Urinalysis did show evidence for infection with positive bacteria, however does appear to be a contaminated specimen with epithelial cells. Given the patient's history, she will be treated at this time for urinary tract infection and was encouraged to follow-up closely with her PCP. She will be treated for 10 days, as her symptoms of flank pain are present, and to cover in case of an infection in the kidney. Her symptoms of otalgia and muffled hearing did improve with Claritin. She was encouraged to use Claritin OTC for these symptoms and follow-up with her PCP for worsening symptoms. All questions answered to the patient's satisfaction. Etiologies such as renal colic, appendicitis, diverticulitis, mesenteric ischemia, aortic pathology, infections, inflammatory bowel disease, PUD, biliary pathology, UTI, musculoskeletal, allergic rhinitis, otitis media, acute sinusitis, otitis externa, tinnitus, malignancy, as well as others were entertained. The chart was completed utilizing [employer] Speech voice recognition software. Grammatical errors, random word insertions, pronoun errors, and incomplete sentences are an occasional consequence of this system due to software limitations, ambient noise, and hardware issues. Any formal questions or concerns about the content, text, or information contained within the body of this dictation should be directly addressed to the provider for clarification. Medication Reconcilliation Current Medication List: was personally reviewed by me Blood Pressure Screening Patient's blood pressure: Normal blood pressure Impression Primary Impression: Urinary tract infection Additional Impressions: Right flank pain Allergic rhinitis Departure Information Dispostion Home / Self-Care Condition GOOD Prescriptions Cephalexin Monohydrate (Keflex) 500 Mg Cap 500 MG PO QID for 10 Days, #40 CAP Prov: Hue Cheney PA-C 12/26/17 Referrals Lilibeth Sharma MD (PCP) Patient Instructions ED UTI Cystitis Female, My [facility] Additional Instructions You have been treated in the Emergency Department for a right upper quadrant pain. You were diagnosed with a urinary Tract Infection (UTI). I suspect this versus musculoskeletal pain as the cause of your symptoms. You have been prescribed Keflex to be taken 4 times daily. This is an antibiotic. All antibiotics have the potential to cause diarrhea. Stop this medication and contact a medical provider if you were to develop any significant adverse side effects including: wheezing, shortness of breath, passing out, vomiting, or a diffuse rash. Always take antibiotics as directed and COMPLETE the ENTIRE course regardless of the improvement of your symptoms. Drink plenty of water and stay well hydrated. Ibuprofen(Motrin, Advil) may be used for fever or pain. Use 600mg every six hours as needed. Take with food. Avoid using more than 2400mg in a 24 hour period. Do not use 2400mg per day for more than three consecutive days without physician direction. Prolonged inappropriate use can lead to stomach upset or ulcers. (AND/OR) Acetaminophen(Tylenol) may be used for fever or pain. Use 1000mg every six hours as needed. Avoid using more than 3000mg in a 24 hour period. As with any trip to the Emergency Department, you should follow-up with your Primary Care Provider from today's visit. Return to the emergency department if your symptoms persist despite treatment plan outlined above or if the following symptoms occur: increased fevers, chills , low back pain, nausea/vomiting, or blood in your urine. Problem Qualifiers Primary Impression: Urinary tract infection Urinary tract infection type: acute cystitis Hematuria presence: without hematuria Qualified Codes: N30.00 - Acute cystitis without hematuria Additional Impressions: Allergic rhinitis Allergic rhinitis trigger: unspecified Allergic rhinitis seasonality: seasonal Qualified Codes: J30.2 - Other seasonal allergic rhinitis
[2017-12-26 12:17] LABS: BASO % 0.2 %; BASO ABS # 0.02 K/uL (0-0.2); EOS % 1.5 %; EOS ABS # 0.15 K/uL (0-0.5); HEMATOCRIT 40.4 % (37-47); HEMOGLOBIN 13.6 g/dL (12.0-16.0); IG# 0.03 K/uL (0.00-0.02); LYMPH % 19.6 %; LYMPH ABS # 1.95 K/uL (1.2-3.4); MEAN CORPUSCULAR HEMOGLOBIN 28.3 pg (25-34); MEAN CORPUSCULAR HGB CONC 33.7 g/dl (32-36); MEAN PLATELET VOLUME 8.9 fL (7.4-10.4); MONO % 4.4 %; MONO ABS # 0.44 K/uL (0.11-0.59); NEUT ABS # 7.34 K/uL (1.4-6.5); PLATELET COUNT 261 K/uL (130-400); RED CELL DISTRIBUTION WIDTH CV 13.4 % (11.5-14.5); RED CELL DISTRIBUTION WIDTH SD 40.7 fL (36.4-46.3); WHITE BLOOD COUNT 9.93 K/uL (4.8-10.8)
--- NOTE | 2017-12-26 12:28 | DIAGNOSTIC IMAGING REPORT ---
KUB CLINICAL HISTORY: right flank pain pain COMPARISON STUDY: 02/12/2015 FINDINGS: Kidneys are obscured by overlying bowel content. There has been a prior cholecystectomy. There are several vascular calcifications of the right soft tissue pelvis unchanged from the prior study. The bowel pattern is nonobstructive. IMPRESSION: 1. Negative abdomen. 2. Renal shadows are obscured by overlying bowel content. The above report was generated using voice recognition software. It may contain grammatical, syntax or spelling errors. Electronically signed by: Torey Ramirez M.D. 12/26/2017 12:26 PM Dictated Date/Time: 12/26/2017 12:26 PM
[2017-12-26 12:39] LABS: ALBUMIN 3.4 gm/dl (3.4-5.0); CALCIUM 8.8 mg/dl (8.5-10.1); CREATININE 0.88 mg/dl (0.60-1.20); POTASSIUM 3.7 mmol/L (3.5-5.1)
[2017-12-26 12:41] LABS: TOTAL PROTEIN 7.7 gm/dl (6.4-8.2)
--- NOTE | 2017-12-26 13:56 | DIAGNOSTIC IMAGING REPORT ---
RENAL ULTRASOUND HISTORY: right flank pain COMPARISON: Abdomen and pelvis CT 12/21/2017. FINDINGS: Right kidney: 12 cm. No hydronephrosis. Normal corticomedullary differentiation and cortical thickness. Left kidney: 12 cm. No hydronephrosis. Normal corticomedullary differentiation and cortical thickness. Bladder: No bladder wall thickening. Not well distended. The ureteral jets are not identified. Miscellaneous: Hepatic steatosis. IMPRESSION: Normal renal ultrasound. Electronically signed by: Neftali Nascimento M.D. 12/26/2017 1:54 PM Dictated Date/Time: 12/26/2017 1:53 PM
--- NOTE | 2017-12-26 14:41 | EMERGENCY ROOM VISIT NOTE ---
ED Visit Note First contact with patient: 11:27 Patient was seen by our PA/JELLY MAKER. I was involved in the patient's care and did evaluate the patient myself. I was involved in the care throughout the ER stay. The patient presents with right flank pain. Urine is suspicious for infection versus some contamination. Urine culture is pending. Renal ultrasound was unrevealing, renal testing was acceptable. There was no leukocytosis or fever. The patient will be treated for the possibility of an early UTI/pyelonephritis. She is being discharged home.
[2017-12-26] MEDS ORDERED: CEPH500C PO (14:45)
[2017-12-26 14:57] VITALS: BP 139/92; PULSE 75; O2SAT 98
== END 2017-12-26 14:58 | disposition home or self-care (01) ==
LOC: C.EDB 11:07 → C.EDC 14:58
DX: N39.0 Urinary tract infection, site not specified (principal); R10.9 Unspecified abdominal pain; J45.909 Unspecified asthma, uncomplicated; E87.1 Hypo-osmolality and hyponatremia; H92.01 Otalgia, right ear; E11.65 Type 2 diabetes mellitus with hyperglycemia; E11.10 Type 2 diabetes mellitus with ketoacidosis without coma; E78.5 Hyperlipidemia, unspecified; E03.9 Hypothyroidism, unspecified; F31.9 Bipolar disorder, unspecified; Z79.82 Long term (current) use of aspirin; Z79.4 Long term (current) use of insulin; Z79.84 Long term (current) use of oral hypoglycemic drugs; Z79.899 Other long term (current) drug therapy; Z83.3 Family history of diabetes mellitus; Z82.49 Family history of ischemic heart disease and other diseases of the circulatory system; Z83.6 Family history of other diseases of the respiratory system; Z83.79 Family history of other diseases of the digestive system

== ENCOUNTER 2018-01-06 11:38 | Emergency (ER) | payer OTHER ==
[~2018-01-06] VITALS: Ht 160 cm; Wt 118.5 kg
[~2018-01-06 11:38] MED LIST changes: +CEPH500C PO
[2018-01-06 11:40] VITALS: TEMP 36.9; Ht 160 cm; Wt 118.5 kg
[2018-01-06] MEDS ORDERED: FLX/5 PO (12:08)
[2018-01-06] MEDS ORDERED: CIPR1TAB11 PO (12:08)
[2018-01-06] MEDS ORDERED: ALBUT/IPRATROP 3MG/0.5MG NEB 3 ML VIAL INH STA (12:12)
[2018-01-06] MEDS ORDERED: ACETAMINOPHEN 500 MG TAB PO STA (12:15)
[2018-01-06 12:33] VITALS: O2SAT 97
--- NOTE | 2018-01-06 12:40 | EMERGENCY ROOM VISIT NOTE ---
ED Visit Note First contact with patient: 11:50 CHIEF COMPLAINT: Cough HISTORY OF PRESENTING ILLNESS: This is a 42-year-old female with past medical history of asthma and insulin-dependent diabetes who presents to the emergency department with complaint of a cough for the past 2-3 days. Patient states that she has been having wheezing with the cough and has been coughing up mucus. She states she has also been having some shortness of breath and chest pain associated with the cough. She does not have any chest pain or shortness of breath at rest. She reports a history of asthma and states that she is supposed to take a daily maintenance inhaler, but states that she lasted 3 weeks ago and also ran out of her albuterol, so she has not been taking anything for her asthma symptoms. She reports some low-grade fevers of 100 since yesterday. She also states that she has had some throat irritation from the coughing, but denies severe sore throat or difficulty swallowing. She does note that her is a smoker and that he smokes around her often, which sometimes triggers her asthma. She denies any headaches, vision changes, back pain, abdominal pain, nausea or vomiting, bowel changes, urinary symptoms, or unusual rash. REVIEW OF SYSTEMS: A complete 10 point review of systems was reviewed with the patient with pertinent positives and negatives as per history of present illness. All else were negative. PAST MEDICAL HISTORY: Reviewed in chart. SOCIAL HISTORY: Lives at home. She denies tobacco use, but does note that her is a smoker. ALLERGIES: Reviewed in chart. PHYSICAL EXAM: CONSTITUTIONAL: Pleasant and cooperative. No acute distress. Well appearing and well nourished. HEENT: Normocephalic, atraumatic. Pupils equal, round and reactive to light, EOMI. TMs normal. Pharynx normal. Moist mucous membranes. NECK: Supple, full active range of motion without discomfort. No cervical adenopathy. RESPIRATORY: Diminished in the bases bilaterally, otherwise clear to auscultation with no wheezing, crackles, rhonchi or stridor. Equal expansion bilaterally. CARDIOVASCULAR: Regular rate and rhythm with no murmurs, rubs or gallops. Normal peripheral perfusion. No edema. GASTROINTESTINAL: Soft, nontender, nondistended. No palpable masses or HSM. Bowel sounds present in all quadrants. MUSCULOSKELETAL: Full range of motion of all joints without discomfort. INTEGUMENTARY: No rash or other significant dermatologic conditions noted. NEUROLOGIC: Alert and oriented X 4 with normal affect. Normal strength and sensation in all 4 extremities. No focal neurologic deficits noted. Normal speech. Normal gait observed. ED COURSE AND MEDICAL DECISION MAKING: CC: Patient presenting with complaint of cough and wheezing DIFFERENTIAL DIAGNOSIS: Includes, but not limited to viral URI, bronchitis, pneumonia, asthma exacerbation, influenza, PE, ACS, among others. INTERPRETATION OF LABS: No leukocytosis, no anemia, no significant electrolyte abnormalities, normal renal function, normal liver enzymes. Serum negative. Influenza A/B is negative. IMAGING: CHEST 2 VIEWS ROUTINE CLINICAL HISTORY: 42 years-old Female presenting with EVALUATE RESPIRATORY DISTRESS.DYSPNEA. TECHNIQUE: PA and lateral views of the chest were obtained. COMPARISON: 04/23/2016. FINDINGS: Cardiomediastinal silhouette normal. Lungs and pleural spaces clear. Osseous structures normal. Upper abdomen normal. IMPRESSION: 1. No acute cardiopulmonary disease. EKG: Shows normal sinus rhythm with a rate of 89 bpm, no acute ischemic changes noted, and no significant change when compared to previous EKG from 09/08/2016 by my interpretation. MEDICATION RECONCILIATION: I attest that I have personally reviewed the patient 's current medication list. INITIAL VITAL SIGNS REVIEW: I reviewed the patient's initial vital signs and interpret them as follows: T: Afebrile; BP: Normotensive; HR: Within normal limits; RR: Within normal limits; Pulse Ox: Within normal limits on room air. Blood pressure screening: The patient was found to have normal blood pressure on screening and does not require follow-up for repeat blood pressure check. SUMMARY: Patient was evaluated at bedside, history and physical exam performed. Patient is alert and oriented, no acute distress, resting calmly in the stretcher. Patient's lungs slightly diminished in the bases, but no wheezes heard on auscultation, and no abnormal sounds to suggest a focal consolidation. EKG reviewed at bedside and shows no acute ischemic changes. Orders were placed at bedside for labs, DuoNeb treatment, chest x-ray to evaluate for cardiopulmonary disease. Patient discussed with Dr. Connell, who agrees with my assessment and plan. Labs and imaging reviewed as above, unremarkable. Patient reassessed multiple times throughout ED stay, she remained stable and well-appearing, states that her breathing and cough feels much better after DuoNeb treatment. The patient was provided with albuterol inhaler and spacer and instructed in its use. Patient was updated on all results and plan for discharge, she was encouraged to follow closely with her primary care provider. Patient was also given strict return precautions should her symptoms worsen, she verbalized understanding. Patient was discharged home in stable condition and ambulatory. Problem List Medical Problems: (1) Asthma Status: Chronic (2) ASTHMA, UNSPECIFIED Status: Chronic (3) BIPOLAR DISORDER, UNSPECIFIED Status: Chronic (4) DIAB NIKHIL WO COMPL, TYPE II OR UNSPEC TYPE, NOT UNCNTRLD Status: Chronic (5) Diabetic neuropathy Status: Chronic (6) DIVERTICULOSIS COLON (W/O MENT OF HEMORRHAGE) Status: Chronic (7) DKA (diabetic ketoacidoses) Status: Chronic (8) Endometriosis Status: Chronic (9) ESOPHAGEAL REFLUX Status: Chronic (10) Gallstone Status: Resolved (11) Gastritis Status: Chronic (12) Hiatal hernia Status: Resolved (13) Hyperlipidemia Status: Chronic (14) IBS (irritable bowel syndrome) Status: Chronic (15) MIGRAINE UNSPECIFIED W/O INTRACTABLE MIGRAINE Status: Chronic (16) MORBID OBESITY Status: Chronic (17) Ovarian cyst Status: Resolved (18) Sciatica Status: Chronic (19) TIA (transient ischemic attack) Status: Resolved (20) Vertigo Status: Chronic Surgical Problems: (1) H/O: hysterectomy Status: Resolved (2) History of cholecystectomy Status: Resolved (3) TUBAL LIGATION STATUS Status: Resolved Current/Historical Medications Scheduled Amitriptyline HCl (Amitriptyline HCl), 100 MG PO HS Aripiprazole (Aripiprazole), 10 MG PO HS Aspirin (Aspirin Ec), 81 MG PO HS Atorvastatin (Lipitor), 20 MG PO HS Bupropion (Wellbutrin Sr), 100 MG PO QPM Cholecalciferol (Vitamin D3), 1,000 UNITS PO HS Ciprofloxacin Tab (Cipro), Unknown Dose PO BID Diclofenac Sod (Diclofenac Sodium Dr), 50 MG PO HS Fluticasone Prop/Salmeterol (Advair Diskus 250/50 60 Dose), 1 PUFF INH BID Gabapentin (Gabapentin), 900 MG PO HS Insulin Aspart (Novolog Flexpen), 40-60 UNITS SC WITH MEALS & SNACKS Insulin Glargine (Toujeo Solostar), 65 UNITS SQ HS Levothyroxine Sodium (Levothyroxine Sodium), 75 MCG PO QAM Lisinopril (Lisinopril), 2.5 MG PO HS Metformin Hcl (Glucophage), 2,000 MG PO QPM Multiple Vitamins W/ Minerals (Womens One Daily), 1 TAB PO QPM Olanzapine (Zyprexa), 20 MG PO HS Ondasetron Odt (Zofran Odt), 4 MG SL Q6H Polyethylene Glycol 3350 (Miralax), 17 GM PO HS Ranitidine Hcl (Zantac), 300 MG PO HS Zolpidem Tartrate (Zolpidem Tartrate), 10 MG PO HS Scheduled PRN Albuterol Sulfate (Proventil Hfa), 2 PUFFS INH Q4-6HRS PRN for Asthma Symptoms Cyclobenzaprine HCl (Cyclobenzaprine HCl), 5 MG PO DAILY PRN for Muscle Spasms Diphenhydramine Hcl (Benadryl Allergy), 25 MG PO HS PRN for Allergic Reaction Docusate Sodium (Colace), 100 MG PO BID PRN for Constipation Fluticasone Propionate (Fluticasone Propionate), 2 SPRAYS ROLY DAILY PRN for Allergy Symptoms Ibuprofen (Advil), 800 MG PO DAILY PRN for Headache or Pain Ipratropium-Albuterol (Duoneb), 1 TREATMENT INH Q4H PRN for SOB/Wheezing Loratadine (Claritin), 10 MG PO DAILY PRN for Allergy Symptoms Lorazepam (Lorazepam), 0.5 MG PO DAILY PRN for Anxiety Pantoprazole (Pantoprazole Sodium), 40 MG PO HS PRN for reflux Allergies Coded Allergies: BEE STING (Verified Allergy, Intermediate, LARGE SWELLING/RED/WELT. TURNS INTO BRUISING, 01/06/18) Dust (Verified Allergy, Intermediate, ITCHY EYES/SCRATCHY THROAT. SWOLLEN EYES, 01/06/18) Morphine (Verified Allergy, Intermediate, LOCALIZED REACTION: RED/WELTS, ) POLLEN (Verified Allergy, Intermediate, ITCHY EYES/SCRATCHY THROAT. SWOLLEN EYES, 01/06/18) Adhesives (Verified Allergy, Unknown, VERY RED SKIN AND ITCHY, 01/06/18) Citalopram (Verified Allergy, Unknown, JAW PAIN AND HEADACHES, 01/06/18) Vital Signs Date Time Temp Pulse Resp B/P (MAP) Pulse Ox O2 Delivery O2 Flow Rate FiO2 01/06/18 16:14 99 20 123/95 95 Room Air 01/06/18 15:21 86 20 130/77 95 Room Air 01/06/18 13:30 87 20 125/81 94 Room Air 01/06/18 12:41 90 01/06/18 12:33 97 Room Air 01/06/18 12:33 97 Room Air 01/06/18 11:40 36.9 99 20 137/87 96 Room Air Laboratory Results 01/06/18 12:30 Red Blood Count 4.86, Mean Corpuscular Volume 82.7, Mean Corpuscular Hemoglobin 28.0, Mean Corpuscular Hemoglobin Concent 33.8, Mean Platelet Volume 9.2, Neutrophils (%) (Auto) 76.0, Lymphocytes (%) (Auto) 17.0, Monocytes (%) (Auto) 4.6, Eosinophils (%) (Auto) 2.0, Basophils (%) (Auto) 0.2, Neutrophils # (Auto) 7.34, Lymphocytes # (Auto) 1.64, Monocytes # (Auto) 0.44, Eosinophils # (Auto) 0.19, Basophils # (Auto) 0.02 01/06/18 12:30 Test 01/06/18 11:47 01/06/18 12:30 Influenza Type A Antigen Neg for Influ A (NEG) Influenza Type B Antigen Neg for Influ B (NEG) White Blood Count 9.65 K/uL (4.8-10.8) Red Blood Count 4.86 M/uL (4.2-5.4) Hemoglobin 13.6 g/dL (12.0-16.0) Hematocrit 40.2 % (37-47) Mean Corpuscular Volume 82.7 fL (80-100) Mean Corpuscular Hemoglobin 28.0 pg (25-34) Mean Corpuscular Hemoglobin Concent 33.8 g/dl (32-36) Platelet Count 265 K/uL (130-400) Mean Platelet Volume 9.2 fL (7.4-10.4) Neutrophils (%) (Auto) 76.0 % Lymphocytes (%) (Auto) 17.0 % Monocytes (%) (Auto) 4.6 % Eosinophils (%) (Auto) 2.0 % Basophils (%) (Auto) 0.2 % Neutrophils # (Auto) 7.34 K/uL (1.4-6.5) Lymphocytes # (Auto) 1.64 K/uL (1.2-3.4) Monocytes # (Auto) 0.44 K/uL (0.11-0.59) Eosinophils # (Auto) 0.19 K/uL (0-0.5) Basophils # (Auto) 0.02 K/uL (0-0.2) RDW Standard Deviation 40.6 fL (36.4-46.3) RDW Coefficient of Variation 13.4 % (11.5-14.5) Immature Granulocyte % (Auto) 0.2 % Immature Granulocyte # (Auto) 0.02 K/uL (0.00-0.02) Anion Gap 6.0 mmol/L (3-11) Est Creatinine Clear Calc Drug Dose 144.1 ml/min Estimated GFR () 127.1 Estimated GFR (Non- 109.7 BUN/Creatinine Ratio 15.6 (10-20) Calcium Level 8.4 mg/dl (8.5-10.1) Total Bilirubin 0.4 mg/dl (0.2-1) Aspartate Amino Transf (AST/SGOT) 16 U/L (15-37) Alanine Aminotransferase (ALT/SGPT) 22 U/L (12-78) Alkaline Phosphatase 113 U/L (45-117) Total Protein 7.3 gm/dl (6.4-8.2) Albumin 3.1 gm/dl (3.4-5.0) Globulin 4.2 gm/dl (2.5-4.0) Albumin/Globulin Ratio 0.7 (0.9-2) Human Chorionic Gonadotropin, Qual NEG (NEG) Medications Administered Medications (Trade) Dose Ordered Sig/Moon Route Start Time Stop Time Status Last Admin Dose Admin Albuterol/ Ipratropium (Duoneb) 3 ml NOW STAT INH 01/06/18 12:12 01/06/18 12:15 DC 01/06/18 12:34 3 ML Acetaminophen (Tylenol Tab) 1,000 mg NOW STAT PO 01/06/18 12:15 01/06/18 12:16 DC 01/06/18 12:34 1,000 MG Albuterol (Ventolin Hfa Inhaler) 2 puffs NOW ONCE INH 01/06/18 15:15 01/06/18 15:16 DC 01/06/18 15:15 2 PUFFS Departure Information Impression Primary Impression: Acute bronchitis Dispostion Home / Self-Care Condition GOOD Referrals No Doctor, Assigned (PCP) Patient Instructions ED Bronchitis Asthmatic, My [facility] Additional Instructions You have been evaluated in the emergency department for your cough and shortness of breath. There is no evidence of pneumonia on your chest x-ray. Use the albuterol inhaler TWO puffs every 4 hours as needed for cough, wheezing , chest tightness. You should also use this before bed to help prevent coughing so that you can sleep better at night. For fevers or pain, you can use the following hyum-pki-sczzoua medicines (if > 12 yo): - Regular strength (325mg/tab) Tylenol (acetaminophen) 2 tabs every 4-6 hours as needed. Do not exceed 10 tablets in a 24 hour period. Avoid taking more than 3000 mg of Tylenol per day. This includes any other sources of acetaminophen you may take on a regular basis. - Regular strength (200 mg/tab) Advil (ibuprofen) 3 tabs every 6-8 hours as needed. Do not exceed a dose of 2400 mg per day. - For best results, alternate dosing of Tylenol and Advil. Drink plenty of fluids to stay well hydrated. Please follow-up with your primary care provider in the next few days to be rechecked if your symptoms are not getting any better. You will need to receive inhaler refills from your primary care provider. Please return to the emergency department if your symptoms worsen over the next 2-3 days despite treatment course outlined above. Return to the emergency department if you develop the following symptoms of: inability to swallow solids , liquids, or drool; excessive wheezing or inability to catch your breath; worsening chest pain, coughing up blood, severe dizziness or passing out; fever or pain that becomes unmanageable with [id number]-[id number] medications; or any other concerns. Problem Qualifiers Primary Impression: Acute bronchitis Bronchitis organism: unspecified organism Qualified Codes: J20.9 - Acute bronchitis, unspecified
[2018-01-06 12:46] LABS: INFLUENZA B ANTIGEN Neg for Influ B (NEG)
[2018-01-06 13:03] LABS: BASO % 0.2 %; BASO ABS # 0.02 K/uL (0-0.2); EOS ABS # 0.19 K/uL (0-0.5); HEMATOCRIT 40.2 % (37-47); HEMOGLOBIN 13.6 g/dL (12.0-16.0); IG# 0.02 K/uL (0.00-0.02); LYMPH ABS # 1.64 K/uL (1.2-3.4); MEAN CELL VOLUME 82.7 fL (80-100); MEAN CORPUSCULAR HGB CONC 33.8 g/dl (32-36); MEAN PLATELET VOLUME 9.2 fL (7.4-10.4); MONO % 4.6 %; MONO ABS # 0.44 K/uL (0.11-0.59); NEUT ABS # 7.34 K/uL (1.4-6.5); PLATELET COUNT 265 K/uL (130-400); RED CELL DISTRIBUTION WIDTH CV 13.4 % (11.5-14.5); RED CELL DISTRIBUTION WIDTH SD 40.6 fL (36.4-46.3); WHITE BLOOD COUNT 9.65 K/uL (4.8-10.8)
[2018-01-06 13:23] LABS: ALBUMIN 3.1 gm/dl (3.4-5.0); CALCIUM 8.4 mg/dl (8.5-10.1); CREATININE 0.62 mg/dl (0.60-1.20); POTASSIUM 3.9 mmol/L (3.5-5.1)
[2018-01-06 13:26] LABS: TOTAL PROTEIN 7.3 gm/dl (6.4-8.2)
--- NOTE | 2018-01-06 14:49 | DIAGNOSTIC IMAGING REPORT ---
CHEST 2 VIEWS ROUTINE CLINICAL HISTORY: 42 years-old Female presenting with EVALUATE RESPIRATORY DISTRESS.DYSPNEA. TECHNIQUE: PA and lateral views of the chest were obtained. COMPARISON: 04/23/2016. FINDINGS: Cardiomediastinal silhouette normal. Lungs and pleural spaces clear. Osseous structures normal. Upper abdomen normal. IMPRESSION: 1. No acute cardiopulmonary disease. Electronically signed by: Trent Varela M.D. 01/06/2018 2:47 PM Dictated Date/Time: 01/06/2018 2:47 PM
[2018-01-06] MEDS ORDERED: ALBUTEROL HFA 8 GM INHALER INH ONE (15:15)
[2018-01-06 16:14] VITALS: BP 123/95; PULSE 99; O2SAT 95
== END 2018-01-06 16:21 | disposition home or self-care (01) ==
LOC: C.EDB 11:39 → C.EDA 16:21
DX: J20.9 Acute bronchitis, unspecified (principal); J45.909 Unspecified asthma, uncomplicated; F31.9 Bipolar disorder, unspecified; E11.9 Type 2 diabetes mellitus without complications; K21.9 Gastro-esophageal reflux disease without esophagitis; E78.5 Hyperlipidemia, unspecified; K58.9 Irritable bowel syndrome, unspecified; Z86.73 Personal history of transient ischemic attack (TIA), and cerebral infarction without residual deficits; Z79.4 Long term (current) use of insulin; Z79.82 Long term (current) use of aspirin; Z79.899 Other long term (current) drug therapy; Z91.030 Bee allergy status; Z91.048 Other nonmedicinal substance allergy status; Z88.8 Allergy status to other drugs, medicaments and biological substances; Z88.5 Allergy status to narcotic agent

== ENCOUNTER → 2018-01-11 | Outpatient (CLI) | payer OTHER ==
[~2018-01-11] MED LIST changes: -CEPH500C PO; +CIPR1TAB11 PO; +FLX/5 PO
--- NOTE | 2018-01-11 18:59 | DIAGNOSTIC IMAGING REPORT ---
CHEST 2 VIEWS ROUTINE HISTORY: 42 years-old Female R50.9 [id number] Shortness of [id number] Lung crackles acute fever with shortness of breath COMPARISON: Chest radiographs 01/06/2018 TECHNIQUE: PA and lateral views of the chest FINDINGS: Cardiomediastinal and hilar silhouettes are within normal limits. There is no pneumothorax, pleural effusion, focal airspace consolidation or overt pulmonary edema. The bones of the chest appear grossly intact. Cholecystectomy clips are noted. IMPRESSION: No acute process. The above report was generated using voice recognition software. It may contain grammatical, syntax or spelling errors. Electronically signed by: Glen Lee M.D. 01/11/2018 6:58 PM Dictated Date/Time: 01/11/2018 6:57 PM
== END | disposition home or self-care (01) ==
LOC: C.RAD 18:20
PROVIDERS: ATTEND Internal Medicine
DX: R50.9 Fever, unspecified (principal); R06.02 Shortness of breath; R09.89 Other specified symptoms and signs involving the circulatory and respiratory systems

== ENCOUNTER 2018-01-22 21:51 | Emergency (ER) | payer OTHER ==
[~2018-01-22] VITALS: Ht 157.5 cm; Wt 72.0 kg
[2018-01-22 21:55] VITALS: TEMP 36.7; Ht 157.5 cm; Wt 72.0 kg
[2018-01-22] MEDS ORDERED: IBUPROFEN 600 MG TAB PO STA (22:16)
[2018-01-22] MEDS ORDERED: ACETAMINOPHEN 500 MG TAB PO STA (22:16)
--- NOTE | 2018-01-22 22:47 | DIAGNOSTIC IMAGING REPORT ---
R KNEE 3 VIEWS HISTORY: 42 years-old Female Right knee injury acute right knee pain COMPARISON: None available TECHNIQUE: 3 views of the right knee FINDINGS: Mild joint space narrowing with marginal spurring about the patellofemoral joint. No acute fracture or dislocation. There is moderate soft tissue swelling about the knee, most pronounced medially. No large joint effusion or opaque foreign body. IMPRESSION: Soft tissue swelling without fracture. The above report was generated using voice recognition software. It may contain grammatical, syntax or spelling errors. Electronically signed by: Glen Lee M.D. 01/22/2018 10:45 PM Dictated Date/Time: 01/22/2018 10:44 PM
[2018-01-22 23:21] VITALS: BP 122/89; PULSE 68; O2SAT 98
--- NOTE | 2018-01-24 00:28 | EMERGENCY ROOM VISIT NOTE ---
ED Visit Note First contact with patient: 22:01 CHIEF COMPLAINT: knee pain HISTORY OF PRESENT ILLNESS: This 42 year old female patient presents to the emergency department after sustaining an injury to the right knee about 1 hour ago. The patient states she was walking from her living room into her kitchen when she tripped over the transition in the connie, landing primarily onto her right knee.. The patient denies any other injuries besides their knee. The patient is without swelling or bruising. There is pain over the kneecap. They rate the pain as dull and 7/10. The patient states they are able to walk on it. No numbness or tingling. No previous injuries to this knee. No ankle, foot or hip pain. REVIEW OF SYSTEMS: A 6 system review of systems was completed with positives and pertinent negatives listed in the HPI. ALLERGIES: See EMR MEDICATIONS: See EMR PMH: No pertinent chronic medical disease SOCIAL HISTORY: Lives locally with family PHYSICAL EXAM: Vital Signs: Reviewed Nurse's notes, vital signs stable. GENERAL : White female, no acute distress, but appears in pain, well-developed, well- nourished. MENTAL STATUS: Alert, oriented to person place and time, and cooperative. MUSCULOSKELETAL: The right knee is minimally swollen. There is no ecchymosis. There is no joint effusion present. The patient is tender laterally. There is no joint line tenderness. The patella does not subluxate. Range of motion is normal. Strength of the quads and hamstrings is 5/5. Tigist' s is negative. Dilcia's and Anterior Drawer tests are normal. There is no laxity with varus and valgus stressing. The foot and toes are warm and well- perfused. Dorsalis pedis pulse 2+. Sensation to pain and light touch is intact. Capillary refill less than 2 seconds. R KNEE 3 VIEWS HISTORY: 42 years-old Female Right knee injury acute right knee pain COMPARISON: None available TECHNIQUE: 3 views of the right knee FINDINGS: Mild joint space narrowing with marginal spurring about the patellofemoral joint. No acute fracture or dislocation. There is moderate soft tissue swelling about the knee, most pronounced medially. No large joint effusion or opaque foreign body. IMPRESSION: Soft tissue swelling without fracture. EMERGENCY DEPARTMENT COURSE: Physical exam and history were performed. Nursing notes and EMR were reviewed. The patient appears to have suffered a mechanical fall at home and subsequently injured her right knee. She is mildly tender and slightly swollen on examination. The patient was given ibuprofen and Tylenol here in the department. X-ray was performed and reviewed by myself and radiology as showing no acute fracture or dislocation. Overall the patient appears well for discharge home and felt better after analgesics. An Shahram wrap was placed. I offered crutches, however the patient was comfortable without these. The patient was asked to follow with orthopedics with any ongoing or persisting symptoms. She voiced understanding and rated her discomfort a 2/10 at the time of departure. Problem List Medical Problems: (1) Asthma Status: Chronic (2) ASTHMA, UNSPECIFIED Status: Chronic (3) BIPOLAR DISORDER, UNSPECIFIED Status: Chronic (4) DIAB NIKHIL WO COMPL, TYPE II OR UNSPEC TYPE, NOT UNCNTRLD Status: Chronic (5) Diabetic neuropathy Status: Chronic (6) DIVERTICULOSIS COLON (W/O MENT OF HEMORRHAGE) Status: Chronic (7) DKA (diabetic ketoacidoses) Status: Chronic (8) Endometriosis Status: Chronic (9) ESOPHAGEAL REFLUX Status: Chronic (10) Gallstone Status: Resolved (11) Gastritis Status: Chronic (12) Hiatal hernia Status: Resolved (13) Hyperlipidemia Status: Chronic (14) IBS (irritable bowel syndrome) Status: Chronic (15) MIGRAINE UNSPECIFIED W/O INTRACTABLE MIGRAINE Status: Chronic (16) MORBID OBESITY Status: Chronic (17) Ovarian cyst Status: Resolved (18) Sciatica Status: Chronic (19) TIA (transient ischemic attack) Status: Resolved (20) Vertigo Status: Chronic Surgical Problems: (1) H/O: hysterectomy Status: Resolved (2) History of cholecystectomy Status: Resolved (3) TUBAL LIGATION STATUS Status: Resolved Current/Historical Medications Scheduled Amitriptyline HCl (Amitriptyline HCl), 100 MG PO HS Aripiprazole (Aripiprazole), 10 MG PO HS Aspirin (Aspirin Ec), 81 MG PO HS Atorvastatin (Lipitor), 20 MG PO HS Bupropion (Wellbutrin Sr), 100 MG PO QPM Cholecalciferol (Vitamin D3), 1,000 UNITS PO HS Ciprofloxacin Tab (Cipro), Unknown Dose PO BID Diclofenac Sod (Diclofenac Sodium Dr), 50 MG PO HS Fluticasone Prop/Salmeterol (Advair Diskus 250/50 60 Dose), 1 PUFF INH BID Gabapentin (Gabapentin), 900 MG PO HS Insulin Aspart (Novolog Flexpen), 40-60 UNITS SC WITH MEALS & SNACKS Insulin Glargine (Toujeo Solostar), 65 UNITS SQ HS Levothyroxine Sodium (Levothyroxine Sodium), 75 MCG PO QAM Lisinopril (Lisinopril), 2.5 MG PO HS Metformin Hcl (Glucophage), 2,000 MG PO QPM Multiple Vitamins W/ Minerals (Womens One Daily), 1 TAB PO QPM Olanzapine (Zyprexa), 20 MG PO HS Ondasetron Odt (Zofran Odt), 4 MG SL Q6H Polyethylene Glycol 3350 (Miralax), 17 GM PO HS Ranitidine Hcl (Zantac), 300 MG PO HS Zolpidem Tartrate (Zolpidem Tartrate), 10 MG PO HS Scheduled PRN Albuterol Sulfate (Proventil Hfa), 2 PUFFS INH Q4-6HRS PRN for Asthma Symptoms Cyclobenzaprine HCl (Cyclobenzaprine HCl), 5 MG PO DAILY PRN for Muscle Spasms Diphenhydramine Hcl (Benadryl Allergy), 25 MG PO HS PRN for Allergic Reaction Docusate Sodium (Colace), 100 MG PO BID PRN for Constipation Fluticasone Propionate (Fluticasone Propionate), 2 SPRAYS ROLY DAILY PRN for Allergy Symptoms Ibuprofen (Advil), 800 MG PO DAILY PRN for Headache or Pain Ipratropium-Albuterol (Duoneb), 1 TREATMENT INH Q4H PRN for SOB/Wheezing Loratadine (Claritin), 10 MG PO DAILY PRN for Allergy Symptoms Lorazepam (Lorazepam), 0.5 MG PO DAILY PRN for Anxiety Pantoprazole (Pantoprazole Sodium), 40 MG PO HS PRN for reflux Allergies Coded Allergies: BEE STING (Verified Allergy, Intermediate, LARGE SWELLING/RED/WELT. TURNS INTO BRUISING, 01/06/18) Dust (Verified Allergy, Intermediate, ITCHY EYES/SCRATCHY THROAT. SWOLLEN EYES, 01/06/18) Morphine (Verified Allergy, Intermediate, LOCALIZED REACTION: RED/WELTS, ) POLLEN (Verified Allergy, Intermediate, ITCHY EYES/SCRATCHY THROAT. SWOLLEN EYES, 01/06/18) Adhesives (Verified Allergy, Unknown, VERY RED SKIN AND ITCHY, 01/06/18) Citalopram (Verified Allergy, Unknown, JAW PAIN AND HEADACHES, 01/06/18) Vital Signs Date Time Temp Pulse Resp B/P (MAP) Pulse Ox O2 Delivery O2 Flow Rate FiO2 01/22/18 23:21 68 20 122/89 98 Room Air 01/22/18 21:55 36.7 98 18 124/73 93 Room Air Medications Administered Medications (Trade) Dose Ordered Sig/Moon Route Start Time Stop Time Status Last Admin Dose Admin Acetaminophen (Tylenol Tab) 1,000 mg NOW STAT PO 01/22/18 22:16 01/22/18 22:17 DC 01/22/18 22:16 1,000 MG Ibuprofen (Motrin Tab) 600 mg NOW STAT PO 01/22/18 22:16 01/22/18 22:17 DC 01/22/18 22:16 600 MG Departure Information Impression Primary Impression: Injury of right knee Dispostion Home / Self-Care Condition GOOD Forms HOME CARE DOCUMENTATION FORM, IMPORTANT VISIT INFORMATION Patient Instructions [facility], ED RICE Additional Instructions You were seen and evaluated today on an emergency basis only. This is not a substitute for, or an effort to provide, complete comprehensive medical care. It is not possible to recognize and treat all injuries or illnesses in a single emergency department visit. For this reason it is recommended that you followup with your primary care physician with any ongoing or persisting symptoms. For baseline pain relief you may alternate ibuprofen and acetaminophen every 4 hours for pain control. Take 600 mg ibuprofen (Advil) and then 4 hours later take 1000 mg acetaminophen (Tylenol). Do not take more than 3000 mg acetaminophen in a single day. You are welcome to return to the emergency department anytime with new, worsening, or concerning symptoms.
== END 2018-01-22 23:22 | disposition home or self-care (01) ==
LOC: C.EDB 21:53 → C.EDC 23:22
DX: S89.91XA Unspecified injury of right lower leg, initial encounter (principal); W18.09XA Striking against other object with subsequent fall, initial encounter; Y92.018 Other place in single-family (private) house as the place of occurrence of the external cause; J45.909 Unspecified asthma, uncomplicated; F31.9 Bipolar disorder, unspecified; E11.9 Type 2 diabetes mellitus without complications; K21.9 Gastro-esophageal reflux disease without esophagitis; E78.5 Hyperlipidemia, unspecified; K58.9 Irritable bowel syndrome, unspecified; Z86.73 Personal history of transient ischemic attack (TIA), and cerebral infarction without residual deficits; Z79.82 Long term (current) use of aspirin; Z79.4 Long term (current) use of insulin; Z79.84 Long term (current) use of oral hypoglycemic drugs; Z79.899 Other long term (current) drug therapy; Z91.030 Bee allergy status; Z91.048 Other nonmedicinal substance allergy status; Z88.5 Allergy status to narcotic agent; Z88.8 Allergy status to other drugs, medicaments and biological substances

== ENCOUNTER → 2018-01-22 | Outpatient (CLI) | payer OTHER ==
[2018-01-23 06:09] LABS: HEMOGLOBIN A1C 7.1 % (4.5-5.6)
== END | disposition home or self-care (01) ==
LOC: C.LAB1850 14:33
PROVIDERS: ATTEND Physician Assistant
DX: E11.40 Type 2 diabetes mellitus with diabetic neuropathy, unspecified (principal)

== ENCOUNTER → 2018-04-09 | Day surgery (SDC) | payer OTHER ==
[2018-03-27 10:39] VITALS: BMI 46.0
[2018-04-03 13:07] VITALS: Ht 160 cm; Wt 118.3 kg
--- NOTE | 2018-04-03 13:36 | PAT Medication Instructions ---
Service Date Apr 03, 2018. Current Home Medication List Albuterol Sulfate (Proventil Hfa), 2 PUFFS INH Q4-6HRS PRN for Asthma Symptoms Amitriptyline HCl (Amitriptyline HCl), 100 MG PO HS Aripiprazole (Aripiprazole), 10 MG PO HS Aspirin (Aspirin Ec), 81 MG PO HS Aspirin (Aspirin Ec), 81 MG PO HS Atorvastatin (Lipitor), 20 MG PO HS Bupropion (Wellbutrin Sr), 100 MG PO QPM Cholecalciferol (Vitamin D3), 1,000 UNITS PO HS Cyclobenzaprine HCl (Cyclobenzaprine HCl), 5 MG PO DAILY PRN for Muscle Spasms Diphenhydramine Hcl (Benadryl Allergy), 25 MG PO HS PRN for Allergic Reaction Docusate Sodium (Colace), 100 MG PO BID PRN for Constipation Fluticasone Prop/Salmeterol (Advair Diskus 250/50 60 Dose), 1 PUFF INH BID Fluticasone Propionate (Fluticasone Propionate), 2 SPRAYS ROLY DAILY PRN for Allergy Symptoms Gabapentin (Gabapentin), 900 MG PO HS Ibuprofen (Advil), 800 MG PO DAILY PRN for Headache or Pain Insulin Aspart (Novolog Flexpen), 40-60 UNITS SC WITH MEALS & SNACKS Insulin Glargine (Toujeo Solostar), 65 UNITS SQ HS Ipratropium-Albuterol (Duoneb), 1 TREATMENT INH Q4H PRN for SOB/Wheezing Levothyroxine Sodium (Levothyroxine Sodium), 75 MCG PO HS Lisinopril (Lisinopril), 2.5 MG PO HS Loratadine (Claritin), 10 MG PO DAILY PRN for Allergy Symptoms Lorazepam (Lorazepam), 0.5 MG PO DAILY PRN for Anxiety Metformin Hcl (Glucophage), 2,000 MG PO QPM Multiple Vitamins W/ Minerals (Womens One Daily), 1 TAB PO QPM Olanzapine (Zyprexa), 20 MG PO HS Pantoprazole (Pantoprazole Sodium), 40 MG PO HS PRN for reflux Polyethylene Glycol 3350 (Miralax), 17 GM PO HS Ranitidine Hcl (Zantac), 300 MG PO HS Zolpidem Tartrate (Zolpidem Tartrate), 10 MG PO HS Medication Instructions For Your Scheduled Surgery -Instructions per surgeon: Aspirin (Aspirin Ec), 81 MG PO HS Ibuprofen (Advil), 800 MG PO DAILY PRN for Headache or Pain - Hold the following medications the morning of surgery: Cyclobenzaprine HCl (Cyclobenzaprine HCl), 5 MG PO DAILY PRN for Muscle Spasms Diphenhydramine Hcl (Benadryl Allergy), 25 MG PO HS PRN for Allergic Reaction Docusate Sodium (Colace), 100 MG PO BID PRN for Constipation Insulin Aspart (Novolog Flexpen), 40-60 UNITS SC WITH MEALS & SNACKS Loratadine (Claritin), 10 MG PO DAILY PRN for Allergy Symptoms - Take the following medications the morning of surgery with a sip of water: Albuterol Sulfate (Proventil Hfa), 2 PUFFS INH Q4-6HRS PRN for Asthma Symptoms ( if needed, and bring with you to the hospital) Fluticasone Prop/Salmeterol (Advair Diskus 250/50 60 Dose), 1 PUFF INH BID Fluticasone Propionate (Fluticasone Propionate), 2 SPRAYS ROLY DAILY PRN for Allergy Symptoms (if needed) Ipratropium-Albuterol (Duoneb), 1 TREATMENT INH Q4H PRN for SOB/Wheezing (if needed) Lorazepam (Lorazepam), 0.5 MG PO DAILY PRN for Anxiety (if needed) Pantoprazole (Pantoprazole Sodium), 40 MG PO HS PRN for reflux (if needed) - Take the following medications as scheduled the night before surgery: Albuterol Sulfate (Proventil Hfa), 2 PUFFS INH Q4-6HRS PRN for Asthma Symptoms ( if needed) Amitriptyline HCl (Amitriptyline HCl), 100 MG PO HS Aripiprazole (Aripiprazole), 10 MG PO HS Atorvastatin (Lipitor), 20 MG PO HS Bupropion (Wellbutrin Sr), 100 MG PO QPM Cholecalciferol (Vitamin D3), 1,000 UNITS PO HS Cyclobenzaprine HCl (Cyclobenzaprine HCl), 5 MG PO DAILY PRN for Muscle Spasms ( if needed) Diphenhydramine Hcl (Benadryl Allergy), 25 MG PO HS PRN for Allergic Reaction ( if needed) Docusate Sodium (Colace), 100 MG PO BID PRN for Constipation (if needed) Fluticasone Prop/Salmeterol (Advair Diskus 250/50 60 Dose), 1 PUFF INH BID Fluticasone Propionate (Fluticasone Propionate), 2 SPRAYS ROLY DAILY PRN for Allergy Symptoms (if needed) Gabapentin (Gabapentin), 900 MG PO HS Insulin Aspart (Novolog Flexpen), 40-60 UNITS SC WITH MEALS & SNACKS Insulin Glargine (Toujeo Solostar), 65 UNITS SQ HS Ipratropium-Albuterol (Duoneb), 1 TREATMENT INH Q4H PRN for SOB/Wheezing (if needed) Levothyroxine Sodium (Levothyroxine Sodium), 75 MCG PO HS Lisinopril (Lisinopril), 2.5 MG PO HS Loratadine (Claritin), 10 MG PO DAILY PRN for Allergy Symptoms (if needed) Lorazepam (Lorazepam), 0.5 MG PO DAILY PRN for Anxiety (if needed) Metformin Hcl (Glucophage), 2,000 MG PO QPM Multiple Vitamins W/ Minerals (Womens One Daily), 1 TAB PO QPM Olanzapine (Zyprexa), 20 MG PO HS Pantoprazole (Pantoprazole Sodium), 40 MG PO HS PRN for reflux (if needed) Polyethylene Glycol 3350 (Miralax), 17 GM PO HS Ranitidine Hcl (Zantac), 300 MG PO HS Zolpidem Tartrate (Zolpidem Tartrate), 10 MG PO HS If you have any questions please call us at [phone] or [phone] or [phone]
[~2018-04-09] VITALS: Ht 160 cm; Wt 118.3 kg
[~2018-04-09] MED LIST changes: +ACETAMINOPHEN 325 MG TAB ONE; +ACETAMINOPHEN 500 MG TAB PO PRN; +ATROPINE SULFATE 0.1 MG/ML 5ML SYR IV PRN; -CIPR1TAB11 PO; +DEXAMETHASONE SOD INJ 4 MG/ML VIAL ONE; +EpHEDrine SULFATE INJ 50 MG/ML AMP IV PRN; +FENTANYL CITRATE INJ 50 MCG/1 ML 2 ML VIAL IV PRN; +FENTANYL CITRATE INJ 50 MCG/1 ML 2 ML VIAL ONE; +HYDROmorphone INJ 1 MG/ML SYR IV PRN; +IPRA-64 INH; -IPRASOL4 INH; +LACTATED RINGER'S 1000ML 1,000 ML IV SCH; +LIDOCAINE HCL 2% 2 ML VIAL (20MG/ML) ONE; +MIDAZOLAM HCL 1 MG/ML 2ML VIAL ONE; +OFLOXACIN 0.3% OP SOLN 5 ML BTL ONE; -ONDA4TAB10 SL; +ONDANSETRON INJ 2 MG/ML 2 ML VIAL IV PRN; +ONDANSETRON INJ 2 MG/ML 2 ML VIAL ONE; +PHENYLEPHRINE 100MCG/ML 5ML SYR IV PRN; +PROMETHAZINE HCL INJ 12.5 MG in SODIUM CHLORIDE 0.9% 50ML 50 ML IV PRN; +PROPOFOL IV EMULSION 10 MG/ML 20 ML VIAL ONE; -VLT50 PO
--- NOTE | 2018-04-09 10:27 | History & Physical Bridge - SC ---
H&P Re-Evaluation Bridge Note: I have examined the patient, reviewed the History & Physical and in the interval since the performance of the History & Physical I have noted the following changes of clinical significance: No changes noted
--- NOTE | 2018-04-09 11:00 | [facility] Operative Report ---
Operative Report Operative Date Apr 09, 2018. Pre-Operative Diagnosis Right Serous Otitis Media Post-Operative Diagnosis Same Procedure(s) Performed Right Myringotomy With T-Tube Placement Surgeon Dr. Chao Industrial Roofer Helper Surgeon(s) None Estimated Blood Loss 1 ml Findings SEVERE MUCOID MIDDLE EAR EFFUSION ON RIGHT Specimens None Anesthesia Type General I attest to the content of the Intraoperative Record and any orders documented therein. Any exceptions are noted below.
--- NOTE | 2018-04-09 11:03 | Discharge Instructions ---
Discharge Instructions Date of Service Apr 09, 2018. Admission Reason for Admission: Right Serous O.m. Discharge Discharge Diagnosis / Problem: SAME Discharge Goals Goal(s): Therapeutic intervention Activity Recommendations Activity Limitations: as noted below DRY RIGHT EAR PRECAUTIONS WHILE TUBE IS IN PLACE; LIGHT ACTIVITY FOR 2-3 DAYS . Current Hospital Diet Patient's current hospital diet: Discharge Diet Recommended Diet: Regular Diet Procedures Procedures Performed: Right Myringotomy With T-Tube Placement Pending Studies Studies pending at discharge: no Laboratory Results Hemoglobin A1c Test 01/22/18 14:40 Range/Units Estimated Average Glucose 157 mg/dl Hemoglobin A1c 7.1 H 4.5-5.6 % Lipid Panel Test 01/22/18 14:40 Range/Units Triglycerides Level 156 H 0-150 mg/dl Cholesterol Level 133 0-200 mg/dl HDL Cholesterol 38 mg/dl Cholesterol/HDL Ratio 3.5 LDL Cholesterol, Calculated 64 mg/dl Medical Emergencies . Who to Call and When: Medical Emergencies: If at any time you feel your situation is an emergency, please call 911 immediately. . Non-Emergent Contact Non-Emergency issues call your: Surgeon . . "Provider Documentation" section prepared by Chase Chao. .
[2018-04-09 11:41] VITALS: TEMP 36.6
--- NOTE | 2018-04-09 11:41 | Anesthesia Progress Nt - [facility] ---
Anesthesia Post Op Note Date & Time Apr 09, 2018 at 11:41 Vital Signs Pain Intensity: 7 Vital Signs Past 12 Hours Date Time Temp Pulse Resp B/P (MAP) Pulse Ox O2 Delivery O2 Flow Rate FiO2 04/09/18 11:32 88 15 04/09/18 11:32 88 15 94 04/09/18 11:31 128/90 04/09/18 11:30 37.0 93 Room Air 04/09/18 11:28 91 15 04/09/18 11:28 92 15 94 04/09/18 11:27 93 14 92 04/09/18 11:27 93 14 04/09/18 11:26 134/96 04/09/18 11:22 96 17 04/09/18 11:22 97 17 91 04/09/18 11:21 135/91 04/09/18 11:17 97 18 04/09/18 11:17 97 18 92 04/09/18 11:16 94 18 130/92 92 04/09/18 11:16 94 18 04/09/18 11:13 123/86 04/09/18 11:11 99 16 98 04/09/18 11:11 97 16 04/09/18 11:06 100 13 92 04/09/18 11:06 36.2 99 12 123/86 95 Mask 04/09/18 11:06 100 13 04/09/18 08:41 36.9 92 20 120/89 (99) 93 Room Air Notes Mental Status: alert / awake / arousable, participated in evaluation Pt Amnestic to Procedure: Yes Nausea / Vomiting: adequately controlled Pain: adequately controlled Airway Patency, RR, SpO2: stable & adequate BP & HR: stable & adequate Hydration State: stable & adequate Anesthetic Complications: no major complications apparent
[2018-04-09 12:10] VITALS: BP 110/75; PULSE 88; O2SAT 95
--- NOTE | 2018-04-09 12:34 | OPERATIVE REPORT ---
DATE OF OPERATION: 04/09/2018 PREOPERATIVE DIAGNOSES: 1. Right otitis media with effusion. 2. Right conductive hearing loss. 3. Right eustachian tube dysfunction. POSTOPERATIVE DIAGNOSES: 1. Right otitis media with effusion. 2. Right conductive hearing loss. 3. Right eustachian tube dysfunction. PROCEDURE: Right myringotomy and T-tube placement. SURGEON: Chase Chao MD ANESTHESIA: General laryngeal mask airway. ESTIMATED BLOOD LOSS: 1 mL. FINDINGS: Severe right mucoid middle ear effusion. SPECIMENS: None. COMPLICATIONS: None. INDICATIONS FOR THE PROCEDURE: The patient is a 42-year-old female with the above-mentioned history which has been refractory to maximum medical therapy including systemic antibiotics and steroids. She presents for the above-mentioned procedure on an outpatient elective basis. DESCRIPTION OF PROCEDURE: After informed consent had been obtained from the patient, the patient was wheeled to the operating room and placed on the operating room table in supine position. Monitors were placed. After induction of general anesthesia via laryngeal mask airway, the patient's head was gently turned to the left and a speculum was inserted into the right external auditory canal. A cerumen loop was used to remove excess cerumen. A myringotomy knife was used to make a radial incision in the anteroinferior quadrant of the tympanic membrane and the middle ear space was suctioned free of a severe mucoid middle ear effusion. A silicone T-tube was then placed with a T-tube pillowcase maker. Floxin drops were instilled into the middle ear space and a cotton ball was placed into the conchal bowl. This marked the end of the case. The patient tolerated the procedure well and there were no apparent complications. The patient had her laryngeal mask airway removed and was transferred to the recovery room in stable condition. I attest to the content of the Intraoperative Record and any orders documented therein. Any exception s are noted below.
== END | disposition home or self-care (01) ==
LOC: X.SURG 07:58
DX: H65.91 Unspecified nonsuppurative otitis media, right ear (principal); H90.2 Conductive hearing loss, unspecified; H69.81 Other specified disorders of Eustachian tube, right ear; K21.9 Gastro-esophageal reflux disease without esophagitis; M19.90 Unspecified osteoarthritis, unspecified site; J45.909 Unspecified asthma, uncomplicated; F30.9 Manic episode, unspecified; E11.40 Type 2 diabetes mellitus with diabetic neuropathy, unspecified; Z79.84 Long term (current) use of oral hypoglycemic drugs; E78.5 Hyperlipidemia, unspecified; K76.0 Fatty (change of) liver, not elsewhere classified; I10 Essential (primary) hypertension; E03.9 Hypothyroidism, unspecified; E66.01 Morbid (severe) obesity due to excess calories; G47.33 Obstructive sleep apnea (adult) (pediatric); F20.9 Schizophrenia, unspecified; Z82.49 Family history of ischemic heart disease and other diseases of the circulatory system; Z81.8 Family history of other mental and behavioral disorders; Z83.3 Family history of diabetes mellitus; Z82.5 Family history of asthma and other chronic lower respiratory diseases; Z79.82 Long term (current) use of aspirin; Z88.5 Allergy status to narcotic agent; Z88.8 Allergy status to other drugs, medicaments and biological substances; Z79.4 Long term (current) use of insulin; Z68.41 Body mass index [BMI] 40.0-44.9, adult

== ENCOUNTER 2018-04-24 20:36 | Emergency (ER) | payer OTHER ==
[~2018-04-24] VITALS: Ht 160 cm; Wt 120.3 kg
[~2018-04-24 20:36] MED LIST changes: -ACETAMINOPHEN 325 MG TAB ONE; -ACETAMINOPHEN 500 MG TAB PO PRN; -ASPI81TA28 PO; -ATROPINE SULFATE 0.1 MG/ML 5ML SYR IV PRN; -DEXAMETHASONE SOD INJ 4 MG/ML VIAL ONE; -EpHEDrine SULFATE INJ 50 MG/ML AMP IV PRN; -FENTANYL CITRATE INJ 50 MCG/1 ML 2 ML VIAL IV PRN; -FENTANYL CITRATE INJ 50 MCG/1 ML 2 ML VIAL ONE; -HYDROmorphone INJ 1 MG/ML SYR IV PRN; -IBUP-1050 PO; -LACTATED RINGER'S 1000ML 1,000 ML IV SCH; -LIDOCAINE HCL 2% 2 ML VIAL (20MG/ML) ONE; -MIDAZOLAM HCL 1 MG/ML 2ML VIAL ONE; -OFLOXACIN 0.3% OP SOLN 5 ML BTL ONE; -ONDANSETRON INJ 2 MG/ML 2 ML VIAL IV PRN; -ONDANSETRON INJ 2 MG/ML 2 ML VIAL ONE; -PHENYLEPHRINE 100MCG/ML 5ML SYR IV PRN; -PROMETHAZINE HCL INJ 12.5 MG in SODIUM CHLORIDE 0.9% 50ML 50 ML IV PRN; -PROPOFOL IV EMULSION 10 MG/ML 20 ML VIAL ONE
[2018-04-24 20:48] VITALS: TEMP 37; Ht 160 cm; Wt 120.3 kg
[2018-04-24] MEDS ORDERED: KETOROLAC TROMETHAMINE 30 MG/ML VIAL IV STA (21:21)
[2018-04-24] MEDS ORDERED: ONDANSETRON INJ 2 MG/ML 2 ML VIAL IV STA (21:21)
[2018-04-24] MEDS ORDERED: SODIUM CHLORIDE 0.9% 1000ML 1,000 ML IV STA (21:21)
[2018-04-24] MEDS ORDERED: OPTIRAY 320 IV PRN (21:30)
--- NOTE | 2018-04-24 21:30 | EMERGENCY ROOM VISIT NOTE ---
History Report prepared by Fred: Buffy Chinchilla Under the Supervision of: Dr. Jamal Corey M.D. First contact with patient: 21:15 Chief Complaint: DIARRHEA Stated Complaint: BELLY PAIN/DIARRHEA History of Present Illness The patient is a 42 year old female who presents to the Emergency Room with complaints of intermittent diarrhea that began about five days ago. The patient states that she has been feeling very hot and flushed but denies ever checking her temperature. She states that she feels very nauseous but denies vomiting. The patient states that she has abdominal pain all over and back pain. She denies any urinary symptoms. She states that she has been eating less because she feels full after a couple of bites. She also states that she feels uninterested in drinking as well. The patient states that she has noticed blood when she wipes after having diarrhea but states that it is because she has been wiping so much. The patient states that she had her gallbladder removed. She also states that she is diabetic and checks her sugar at home. She states that her sugar is normally in the 100s. Source of History: patient Onset: five days ago Position: buttock (diarrhea ) Timing: intermittent Associated Symptoms: + nausea, + abdominal pain, + back pain, No vomiting, No urinary symptoms Review of Systems See HPI for pertinent positives and negatives. A total of ten systems were reviewed and were otherwise negative. Past Medical & Surgical Medical Problems: (1) Asthma (2) ASTHMA, UNSPECIFIED (3) BIPOLAR DISORDER, UNSPECIFIED (4) DIAB NIKHIL WO COMPL, TYPE II OR UNSPEC TYPE, NOT UNCNTRLD (5) Diabetic neuropathy (6) DIVERTICULOSIS COLON (W/O MENT OF HEMORRHAGE) (7) DKA (diabetic ketoacidoses) (8) Endometriosis (9) ESOPHAGEAL REFLUX (10) Gallstone (11) Gastritis (12) Hiatal hernia (13) Hyperlipidemia (14) IBS (irritable bowel syndrome) (15) MIGRAINE UNSPECIFIED W/O INTRACTABLE MIGRAINE (16) MORBID OBESITY (17) Ovarian cyst (18) Sciatica (19) TIA (transient ischemic attack) (20) Vertigo Surgical Problems: (1) H/O: hysterectomy (2) History of cholecystectomy (3) TUBAL LIGATION STATUS Family History Diabetes mellitus FH: gallbladder disease FH: lung disease FH: seizures Heart disease Hypertension Social History Smoking Status: Never Smoker Alcohol Use: none Drug Use: none Marital Status: in relationship Housing Status: lives with family Occupation Status: unemployed Current/Historical Medications Scheduled Amitriptyline HCl (Amitriptyline HCl), 100 MG PO HS Aripiprazole (Aripiprazole), 10 MG PO HS Atorvastatin (Lipitor), 20 MG PO HS Bupropion (Wellbutrin Sr), 100 MG PO QPM Cholecalciferol (Vitamin D3), 1,000 UNITS PO HS Fluticasone Prop/Salmeterol (Advair Diskus 250/50 60 Dose), 1 PUFF INH BID Gabapentin (Gabapentin), 900 MG PO HS Insulin Aspart (Novolog Flexpen), 40-60 UNITS SC WITH MEALS & SNACKS Insulin Glargine (Toujeo Solostar), 65 UNITS SQ HS Levothyroxine Sodium (Levothyroxine Sodium), 75 MCG PO HS Lisinopril (Lisinopril), 2.5 MG PO HS Metformin Hcl (Glucophage), 2,000 MG PO QPM Multiple Vitamins W/ Minerals (Womens One Daily), 1 TAB PO QPM Olanzapine (Zyprexa), 20 MG PO HS Ondasetron Odt (Zofran Odt), 4 MG SL Q6H Polyethylene Glycol 3350 (Miralax), 17 GM PO HS Ranitidine Hcl (Zantac), 300 MG PO HS Zolpidem Tartrate (Zolpidem Tartrate), 10 MG PO HS Scheduled PRN Albuterol Sulfate (Proventil Hfa), 2 PUFFS INH Q4-6HRS PRN for Asthma Symptoms Cyclobenzaprine HCl (Cyclobenzaprine HCl), 5 MG PO DAILY PRN for Muscle Spasms Diphenhydramine Hcl (Benadryl Allergy), 25 MG PO HS PRN for Allergic Reaction Docusate Sodium (Colace), 100 MG PO BID PRN for Constipation Fluticasone Propionate (Fluticasone Propionate), 2 SPRAYS ROLY DAILY PRN for Allergy Symptoms Ipratropium-Albuterol (Duoneb), 1 TREATMENT INH Q4H PRN for SOB/Wheezing Loratadine (Claritin), 10 MG PO DAILY PRN for Allergy Symptoms Lorazepam (Lorazepam), 0.5 MG PO DAILY PRN for Anxiety Pantoprazole (Pantoprazole Sodium), 40 MG PO HS PRN for reflux Allergies Coded Allergies: BEE STING (Verified Allergy, Intermediate, LARGE SWELLING/RED/WELT. TURNS INTO BRUISING, 04/24/18) Dust (Verified Allergy, Intermediate, ITCHY EYES/SCRATCHY THROAT. SWOLLEN EYES, 04/24/18) Morphine (Verified Allergy, Intermediate, LOCALIZED REACTION: RED/WELTS, ) POLLEN (Verified Allergy, Intermediate, ITCHY EYES/SCRATCHY THROAT. SWOLLEN EYES, 04/24/18) Adhesives (Verified Allergy, Unknown, VERY RED SKIN AND ITCHY, 04/24/18) Citalopram (Verified Allergy, Unknown, JAW PAIN AND HEADACHES, 04/24/18) Physical Exam Vital Signs Date Time Temp Pulse Resp B/P (MAP) Pulse Ox O2 Delivery O2 Flow Rate FiO2 04/24/18 23:06 93 17 137/79 96 Room Air 04/24/18 22:26 89 14 127/84 96 Room Air 04/24/18 22:05 92 04/24/18 20:48 37.0 108 18 125/86 94 Room Air Physical Exam GENERAL: Awake, alert, well-appearing HENT: Normocephalic, atraumatic. Oropharynx unremarkable. EYES: Normal conjunctiva. Sclera non-icteric. NECK: Supple. No nuchal rigidity. RESPIRATORY: Clear to auscultation. No wheezes. Normal respiratory effort. CARDIAC: Normal rate. Normal rhythm. Extremities warm and well perfused. GI: Soft, non-distended. No rebound or guarding. No masses. RLQ pain. RECTAL: Deferred. MUSCULOSKELETAL: Atraumatic. Chest examination reveals no tenderness. There is no CVA tenderness to palpation. LOWER EXTREMITIES: Calves are equal size bilaterally and non-tender. No edema NEURO: Normal sensorium. No sensory or motor deficits noted. No facial droop. SKIN: Warm and dry. No rash or jaundice noted. Medical Decision & Procedures ER Provider Diagnostic Interpretation: Radiology results as stated below per my review and radiologist interpretation: CT ABDOMEN & PELVIS WITH CONTRAST Normal caliber appendix without secondary signs. No bowel dilation, free air or free fluid. Other solid organs appear within limits. Laboratory Results 04/24/18 21:33 Red Blood Count 4.88, Mean Corpuscular Volume 82.6, Mean Corpuscular Hemoglobin 28.5, Mean Corpuscular Hemoglobin Concent 34.5, Mean Platelet Volume 9.2, Neutrophils (%) (Auto) 71.6, Lymphocytes (%) (Auto) 22.0, Monocytes (%) (Auto) 4.3, Eosinophils (%) (Auto) 1.6, Basophils (%) (Auto) 0.2, Neutrophils # (Auto) 7.57, Lymphocytes # (Auto) 2.33, Monocytes # (Auto) 0.46, Eosinophils # (Auto) 0.17, Basophils # (Auto) 0.02 04/24/18 21:33 Test 04/24/18 21:33 White Blood Count 10.58 K/uL (4.8-10.8) Red Blood Count 4.88 M/uL (4.2-5.4) Hemoglobin 13.9 g/dL (12.0-16.0) Hematocrit 40.3 % (37-47) Mean Corpuscular Volume 82.6 fL (80-100) Mean Corpuscular Hemoglobin 28.5 pg (25-34) Mean Corpuscular Hemoglobin Concent 34.5 g/dl (32-36) Platelet Count 273 K/uL (130-400) Mean Platelet Volume 9.2 fL (7.4-10.4) Neutrophils (%) (Auto) 71.6 % Lymphocytes (%) (Auto) 22.0 % Monocytes (%) (Auto) 4.3 % Eosinophils (%) (Auto) 1.6 % Basophils (%) (Auto) 0.2 % Neutrophils # (Auto) 7.57 K/uL (1.4-6.5) Lymphocytes # (Auto) 2.33 K/uL (1.2-3.4) Monocytes # (Auto) 0.46 K/uL (0.11-0.59) Eosinophils # (Auto) 0.17 K/uL (0-0.5) Basophils # (Auto) 0.02 K/uL (0-0.2) RDW Standard Deviation 40.6 fL (36.4-46.3) RDW Coefficient of Variation 13.4 % (11.5-14.5) Immature Granulocyte % (Auto) 0.3 % Immature Granulocyte # (Auto) 0.03 K/uL (0.00-0.02) Urine Color YELLOW Urine Appearance CLOUDY (CLEAR) Urine pH 5.0 (4.5-7.5) Urine Specific [place] 1.021 (1.000-1.030) Urine Protein NEG (NEG) Urine Glucose (UA) 1+ (NEG) Urine Ketones TRACE (NEG) Urine Occult Blood NEG (NEG) Urine Nitrite NEG (NEG) Urine Bilirubin NEG (NEG) Urine Urobilinogen NEG (NEG) Urine Leukocyte Esterase NEG (NEG) Urine WBC (Auto) 1-5 /hpf (0-5) Urine RBC (Auto) 0-4 /hpf (0-4) Urine Hyaline Casts (Auto) 5-10 /lpf (0-5) Urine Epithelial Cells (Auto) >30 /lpf (0-5) Urine Bacteria (Auto) 2+ (NEG) Anion Gap 10.0 mmol/L (3-11) Est Creatinine Clear Calc Drug Dose 127.0 ml/min Estimated GFR () 120.1 Estimated GFR (Non- 103.6 BUN/Creatinine Ratio 11.9 (10-20) Calcium Level 8.8 mg/dl (8.5-10.1) Total Bilirubin 0.4 mg/dl (0.2-1) Direct Bilirubin 0.1 mg/dl (0-0.2) Aspartate Amino Transf (AST/SGOT) 24 U/L (15-37) Alanine Aminotransferase (ALT/SGPT) 33 U/L (12-78) Alkaline Phosphatase 118 U/L (45-117) Troponin I < 0.015 ng/ml (0-0.045) Total Protein 7.4 gm/dl (6.4-8.2) Albumin 3.3 gm/dl (3.4-5.0) Lipase 106 U/L (73-393) Human Chorionic Gonadotropin, Qual NEG (NEG) Laboratory results reviewed by me Medications Administered Medications (Trade) Dose Ordered Sig/Moon Route Start Time Stop Time Status Last Admin Dose Admin Sodium Chloride 1,000 ml @ 999 mls/hr Q1H1M STAT IV 04/24/18 21:21 04/24/18 22:21 DC 04/24/18 21:21 999 MLS/HR Ondansetron HCl (Zofran Inj) 4 mg NOW STAT IV 04/24/18 21:21 04/24/18 21:23 DC 04/24/18 21:54 4 MG Ketorolac Tromethamine (Toradol Inj) 15 mg NOW STAT IV 8/21/18 21:21 04/24/18 21:23 DC 04/24/18 21:54 15 MG ECG Per My Interpretation Indication: abdominal pain Rate (beats per minute): 94 Rhythm: normal sinus Findings: other (no ST elevation, normal axis, normal intervals) Comparison ECG Date: 01/06/2018 Change: no significant change ED Course 2114: The patient was evaluated in room C12B. A complete history and physical exam was performed. 2120: Ordered Toradol Inj 15 mg IV, Zofran Inj 4 mg IV, and Sodium Chloride 1000 ml @ 999 mls/hr. 0012: I reevaluated the patient. Discussed results and discharge instructions: She verbalized understanding and agreement. The patient is ready for discharge. Medical Decision Differential diagnosis: Etiologies such as appendicitis, diverticulitis, PUD, biliary pathology, UTI, pancreatitis, obstruction, mesenteric ischemia, aortic pathology, infections, inflammatory bowel disease, renal colic, as well as others were entertained. Patient presents with 5 days of nausea and right-sided abdominal pain with diarrhea. Denies trauma. Denies fever but felt warm. Some right-sided abdominal pain. Prior cholecystectomy. Doubt hepatitis or pancreatitis. CT the abdomen pelvis was completed. Lower suspicion for nephrolithiasis or UTI. UA appears clean. Labs are unremarkable otherwise. Advised of need to abstain from metformin for [address] without acute findings. Likely this is more of a gastroenteritis situation. Discussed cinematic treatment. She is agreeable with this plan. Advised her to follow-up and of return criteria. Medication Reconcilliation Current Medication List: was personally reviewed by me Blood Pressure Screening Patient's blood pressure: Elevated blood pressure Blood pressure disposition: Elevated BP felt to be situational Impression Primary Impression: Gastroenteritis Scribe Attestation The scribe's documentation has been prepared under my direction and personally reviewed by me in its entirety. I confirm that the note above accurately reflects all work, treatment, procedures, and medical decision making performed by me. Departure Information Dispostion Home / Self-Care Prescriptions Ondasetron Odt (ZOFRAN ODT) 4 Mg Tab 4 MG SL Q6H for Nausea, #10 TAB Prov: Jamal Corey M.D. 04/25/18 Referrals Lilibeth Sharma MD (PCP) Forms HOME CARE DOCUMENTATION FORM, IMPORTANT VISIT INFORMATION, WORK / SCHOOL INSTRUCTIONS Patient Instructions My [facility] Additional Instructions Please maintain hydration. May use [id number] medicines as we discussed. May utilize Zofran to help with your nausea if it occurs. Can use Tylenol for pain. Follow-up with her regular doctor next 3-5 days. If you have new concerns or worsening please return here for reevaluation at any time.
[2018-04-24 21:46] LABS: BASO % 0.2 %; BASO ABS # 0.02 K/uL (0-0.2); EOS % 1.6 %; EOS ABS # 0.17 K/uL (0-0.5); HEMATOCRIT 40.3 % (37-47); HEMOGLOBIN 13.9 g/dL (12.0-16.0); IG# 0.03 K/uL (0.00-0.02); LYMPH ABS # 2.33 K/uL (1.2-3.4); MEAN CELL VOLUME 82.6 fL (80-100); MEAN CORPUSCULAR HEMOGLOBIN 28.5 pg (25-34); MEAN CORPUSCULAR HGB CONC 34.5 g/dl (32-36); MEAN PLATELET VOLUME 9.2 fL (7.4-10.4); MONO % 4.3 %; MONO ABS # 0.46 K/uL (0.11-0.59); NEUT % 71.6 %; NEUT ABS # 7.57 K/uL (1.4-6.5); PLATELET COUNT 273 K/uL (130-400); RED CELL DISTRIBUTION WIDTH CV 13.4 % (11.5-14.5); RED CELL DISTRIBUTION WIDTH SD 40.6 fL (36.4-46.3); WHITE BLOOD COUNT 10.58 K/uL (4.8-10.8)
[2018-04-24 22:22] LABS: ALBUMIN 3.3 gm/dl (3.4-5.0); ALKALINE PHOSPHATASE 118 U/L (45-117); ALT/SGPT 33 U/L (12-78); AST/SGOT 24 U/L (15-37); BLOOD UREA NITROGEN 9 mg/dl (7-18); CALCIUM 8.8 mg/dl (8.5-10.1); CARBON DIOXIDE 27 mmol/L (21-32); CREATININE 0.71 mg/dl (0.60-1.20); GLUCOSE 214 mg/dl (70-99); LIPASE 106 U/L (73-393); POTASSIUM 3.8 mmol/L (3.5-5.1); SODIUM 135 mmol/L (136-145); TOTAL PROTEIN 7.4 gm/dl (6.4-8.2)
[2018-04-25] MEDS ORDERED: ONDA4TAB10 SL (00:11)
[2018-04-25 00:18] VITALS: BP 125/89; PULSE 85; O2SAT 95
--- NOTE | 2018-04-25 07:05 | DIAGNOSTIC IMAGING REPORT ---
ABDOMEN AND PELVIS CT WITH IV CONTRAST CT DOSE: 1522.37 mGy.cm HISTORY: Acute right lower quadrant abdominal pain with nausea and diarrhea RLQ pain, N/D TECHNIQUE: Multiaxial CT images of the abdomen and pelvis were performed following the use of intravenous contrast. A dose lowering technique was utilized adhering to the principles of ALARA. COMPARISON STUDY: CT abdomen and pelvis 12/21/2017. FINDINGS: Left basilar groundglass opacities favor atelectasis. There are 2 solid nodules of the left lower lobe measuring up to 4 mm which appear unchanged and are likely benign. No pneumatosis or pneumoperitoneum. Imaged inferior cardiac chambers appear unremarkable. Suggested fatty infiltration of the liver. No intrahepatic biliary ductal dilation or suspicious hepatic mass lesions. Cholecystectomy. Spleen, pancreas and adrenal glands are unremarkable. Kidneys, ureters and bladder are also unremarkable. Prior hysterectomy. No adnexal mass lesions identified. Aorta and IVC appear unremarkable. No pathologically enlarged lymph nodes are identified. Patent portal vein. High density material throughout the stomach, small and large bowel may reflect ingested medicinal product. No bowel obstruction or focal bowel wall thickening. Terminal ileum and appendix appear normal. No ascites or mesenteric inflammatory changes. Soft tissues are within normal limits. The bones appear to be intact. 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 No spondylolisthesis. Annular disc bulging noted at L4-L5 and L5-S1. IMPRESSION: 1. No acute intra-abdominal or intrapelvic abnormality identified. 2. No bowel obstruction or focal bowel wall thickening. Normal appendix. 3. Prior cholecystectomy and hysterectomy. Electronically signed by: Glen Lee M.D. 04/25/2018 7:03 AM Dictated Date/Time: 04/25/2018 6:57 AM
== END 2018-04-25 00:20 | disposition home or self-care (01) ==
LOC: C.EDB 20:37 → C.EDC 04-25 00:20
DX: K52.9 Noninfective gastroenteritis and colitis, unspecified (principal); J45.909 Unspecified asthma, uncomplicated; F31.9 Bipolar disorder, unspecified; E11.40 Type 2 diabetes mellitus with diabetic neuropathy, unspecified; K21.9 Gastro-esophageal reflux disease without esophagitis; E78.5 Hyperlipidemia, unspecified; E66.01 Morbid (severe) obesity due to excess calories; Z86.73 Personal history of transient ischemic attack (TIA), and cerebral infarction without residual deficits; Z90.710 Acquired absence of both cervix and uterus; Z90.49 Acquired absence of other specified parts of digestive tract; Z98.51 Tubal ligation status; Z83.3 Family history of diabetes mellitus; Z83.79 Family history of other diseases of the digestive system; Z83.6 Family history of other diseases of the respiratory system; Z82.49 Family history of ischemic heart disease and other diseases of the circulatory system; Z79.4 Long term (current) use of insulin; Z79.84 Long term (current) use of oral hypoglycemic drugs; Z79.899 Other long term (current) drug therapy; Z91.030 Bee allergy status; Z91.048 Other nonmedicinal substance allergy status; Z88.5 Allergy status to narcotic agent; Z88.8 Allergy status to other drugs, medicaments and biological substances

== ENCOUNTER 2019-04-21 10:57 | Inpatient (IN) ==
[2019-04-21] MEDS ORDERED: METOCLOPRAMIDE HCL INJ 5 MG/ML 2 ML VIAL IV STA (11:59)
[2019-04-21] MEDS ORDERED: SODIUM CHLORIDE 0.9% 1000ML 1,000 ML IV ONE (11:59)
[2019-04-21] MEDS ORDERED: FAMOTIDINE 20MG IV PUSH 20 MG/5 ML SYR IV STA (12:01)
[2019-04-21 12:09] LABS: Appearance Urine Clear (Clear); Bilirubin Urine Negative (Negative); Blood Urine Negative (Negative); Color Urine Yellow; Glucose Urine UA 3+ (Negative); Ketones Urine 1+ (Negative); Leukocyte Esterase Urine Negative (Negative); Nitrite Urine Negative (Negative); Protein Urine Negative (Negative); Specific Gravity Urine 1.039 (1.000-1.030); Urobilinogen Urine Negative (Negative)
[2019-04-21 12:16] LABS: Hematocrit (blood only) 42.8 % (37-47); Hemoglobin 14.6 g/dL (12.0-16.0); Immature Granulocytes # (auto) 0.08 K/uL (0.00-0.02); Immature Granulocytes % (auto) 0.7 %; Lymphocytes # (auto) 0.91 K/uL (1.2-3.4); Mean Corpuscular Hgb Conc 34.1 g/dL (32-36); Mean Corpuscular Volume 83.9 fL (80-100); Mean Platelet Volume 9.5 fL (7.4-10.4); Monocytes # (auto) 0.09 K/uL (0.11-0.59); Monocytes % (auto) 0.8 %; Neutrophils # (auto) 10.33 K/uL (1.4-6.5); Neutrophils % (auto) 90.5 %; Platelet Count 357 K/uL (130-400); RDW Coefficient of Variation 13.4 % (11.5-14.5); RDW Standard Deviation 40.8 fL (36.4-46.3); White Blood Count 11.41 K/uL (4.8-10.8)
[2019-04-21 12:29] LABS: Alanine Aminotransferase 61 U/L (12-78); Albumin Globulin Ratio 0.8 (0.9-2); Albumin Level 3.6 gm/dl (3.4-5.0); Alkaline Phosphatase 122 U/L (45-117); Aspartate Aminotransferase 58 U/L (15-37); BUN Creatinine Ratio 9.6 (10-20); Bilirubin Direct < 0.1 mg/dl (0-0.2); Bilirubin,Total 0.3 mg/dl (0.2-1); Blood Urea Nitrogen 11 mg/dl (7-18); Calcium 8.8 mg/dl (8.5-10.1); Carbon Dioxide 21 mmol/L (21-32); Chloride 100 mmol/L (98-107); Creatinine Clr Calc Pharmacy 77.5 ml/min; Est GFR (Non-African American) 58.6; Globulin 4.4 gm/dl (2.5-4.0); Glucose 341 mg/dl (70-99); Magnesium 1.9 mg/dl (1.8-2.4); Phosphorus 2.9 mg/dl (2.5-4.9); Potassium 4.1 mmol/L (3.5-5.1); Sodium 136 mmol/L (136-145)
[2019-04-21 12:43] LABS: Beta-Hydroxybutyrate 3.53 mg/dl (0.2-2.81)
--- NOTE | 2019-04-21 14:01 | Emergency Department Note ---
Entered by Kandace Christie acting as a scribe for Best Tovar MD History of Present Illness General Chief complaint: Hyperglycemia Stated complaint: VOMITING, HYPERGLYCEMIA Time Seen by Provider: 04/21/19 11:30 Source: patient History of Present Illness Onset (ago): day(s) 1 Location: head Pain Consistency: + other (persistent) Maximum Pain Intensity: 6 Quality: + other (hyperglycemia) Associated symptoms: + other (vomiting) The patient is a 43 year old female with a history of uncontrolled diabetes, hypertension, and gastroparesis that is presenting to the Emergency Room with complaints of persistent hyperglycemia that started yesterday. The patient reports that she was at the ED yesterday and was found to have a blood glucose reading of 397 mg/dL. She states that Dr. Eugene was able to bring her level down to 280 mg/dL. She notes that she was instructed to return to the ED if her levels continued to be uncontrolled to discuss a sliding scale insulin dosage. She reports that her glucose reading was 309 mg/dL this morning after dropping to 77 mg/dL overnight. She notes that she vomited last night prior to the low glucose reading. She denies eating anything or taking any glucose pills overnight. The patient states that she has been vomiting for the past 3-4 days and has not been able to keep any food down. She notes that she is taking Toujeo, Novalog, and Metformin to control her symptoms. She states that she takes a fixed dose of Novalog and she believes that she takes between 60-70 units at a time. She notes that her blood sugar will drop overnight if she does not take a high dosage with her evening meal. The patient reports that she is currently taking Prednisone, and she states that her glucose levels are generally high when she is taking steroids. She notes that she is keeping a log of her blood glucose readings but denies keeping a food log or noting when she vomits. The patient states that her glucose level has dropped down to 44 mg/dL in the past. She notes that she has a recent diagnosis of gastroparesis and states that she is still learning an appropriate diet. She reports that she has an appointment with her PCP on 04/24/19. Home Medications Home Medications Medication Instructions Recorded Confirmed Type aripiprazole [Abilify] 10 mg PO HS 05/27/18 04/21/19 History diphenhydramine HCl [Benadryl 25 mg PO HS 05/27/18 04/21/19 History Allergy] docusate sodium 100 mg PO BID 05/27/18 04/21/19 History gabapentin 900 mg PO HS 05/27/18 04/21/19 History ipratropium-albuterol 3 ml INHALATION Q4H PRN 05/27/18 04/21/19 History lorazepam 0.5 mg PO HS PRN 05/27/18 04/21/19 History olanzapine 20 mg PO HS 05/27/18 04/21/19 History ondansetron 4 mg PO Q6H PRN 05/27/18 04/21/19 History zolpidem [Ambien] 10 mg PO HS 05/27/18 04/21/19 History metoclopramide HCl 5 mg PO BID #10 tab 05/28/18 04/21/19 Rx [id number]-FA-vit K 1 tab-cap PO HS 07/10/18 04/21/19 History [Multi For Her] promethazine 25 mg PO Q6H PRN #20 tab 09/07/18 04/21/19 Rx dicyclomine 10 mg PO TID PRN #20 cap 11/19/18 04/21/19 Rx ibuprofen 200 mg PO Q6H PRN 02/08/19 04/21/19 History albuterol sulfate HFA 90 2 puff INHALATION Q6H PRN 90 Days 02/12/19 04/21/19 Rx mcg/actuation aerosol inhaler #6.7 gm azelastine 137 mcg (0.1 %) nasal 1 sprays INTNAS BID #30 ml 02/12/19 04/21/19 Rx spray aerosol diphenoxylate-atropine 2.5 10 ml PO BID PRN #60 ml 02/12/19 04/21/19 Rx mg-0.025 mg/5 mL oral liquid fluticasone 250 mcg-salmeterol 50 1 inh INHALATION BID 90 Days #60 ea 02/12/19 04/21/19 Rx mcg/dose blistr powdr for inhalation fluticasone propionate 50 2 spray INTRANASAL DAILY PRN 90 02/12/19 04/21/19 Rx mcg/actuation nasal Days #47.4 gm spray,suspension insulin aspart (U-100) 100 unit/mL See Rx Instructions .ROUTE 02/12/19 04/21/19 Rx (3 mL) subcutaneous pen .COMPLEX #15 ml levothyroxine 75 mcg tablet 75 mcg PO HS 90 Days #90 tab 02/12/19 04/21/19 Rx loratadine 10 mg tablet 10 mg PO HS 90 Days #90 tab 02/12/19 04/21/19 Rx meclizine 25 mg tablet 25 mg PO TID PRN #90 tab 02/12/19 04/21/19 Rx metformin 1,000 mg tablet 2,000 mg PO HS 90 Days #180 tab 02/12/19 04/21/19 Rx polyethylene glycol 3350 17 17 g PO HS PRN 90 Days #527 gm 02/12/19 04/21/19 Rx gram/dose oral powder prucalopride 2 mg tablet 2 mg PO DAILY #30 tab 02/12/19 04/21/19 Rx ranitidine 300 mg tablet 300 mg PO HS 90 Days #90 tab 02/12/19 04/21/19 Rx aspirin 81 mg tablet,delayed 81 mg PO DAILY tab 03/08/19 04/21/19 History release Mobility 1 tab PO DAILY PRN 04/07/19 04/21/19 History amitriptyline 50 mg PO HS 04/07/19 04/21/19 History epinephrine [EpiPen] 0.3 mg IM Q10M PRN 04/07/19 04/21/19 History insulin glargine U-300 conc 65 units SQ QPM 04/07/19 04/21/19 History [Toujeo SoloStar U-300 Insulin] magnesium oxide 500 mg PO BID #14 cap 04/07/19 04/21/19 Rx sucralfate 1 gm PO BID PRN 04/07/19 04/21/19 History pantoprazole 40 mg tablet,delayed 40 mg PO DAILY #90 tab 04/12/19 04/21/19 Rx release cholestyramine (with sugar) 4 gram 4 gm PO BID 04/13/19 04/21/19 History oral powder atorvastatin 20 mg tablet 20 mg PO HS 90 Days #90 tab 04/15/19 04/21/19 Rx lisinopril 10 mg tablet 10 mg PO HS 90 Days #90 tab 04/17/19 04/21/19 Rx bupropion HCl [Wellbutrin SR] 100 mg PO QAM 04/21/19 04/21/19 History prednisone 10 mg PO UD 04/21/19 04/21/19 History Allergies Allergy/AdvReac Type Severity Reaction Status Date / Time bee venom protein (honey bee) Allergy Intermediate LARGE Verified 04/21/19 11:22 SWELLING/RED/WELT. TURNS INTO BRUISING morphine Allergy Intermediate LOCALIZED Verified 04/21/19 11:22 REACTION: RED/WELTS pollen extracts Allergy Intermediate ITCHY Verified 04/21/19 11:22 EYES/SCRATCHY THROAT. SWOLLEN EYES adhesive Allergy Unknown VERY RED Verified 04/21/19 11:22 SKIN AND ITCHY citalopram Allergy Unknown JAW PAIN Verified 04/21/19 11:22 AND HEADACHES Past Med/Surg History Medical History Hypertension (Acute) Chest pain (Acute) Anxiety (Acute) Hyperglycemia (Acute) Allergy or toxic reaction to venom (Acute) Asthma, moderate persistent (Acute) Chronic sinusitis (Acute) Classic migraine with aura (Acute) 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 hearing of left ear (Acute) Diverticulosis (Acute 02/13/12) Depression (Acute) Diabetes mellitus with diabetic neuropathy (Acute) Diabetes mellitus with insulin therapy (Acute) Fatty infiltration of liver (Acute) Gastroparesis (Acute) Hearing difficulty (Acute) Hyperlipidemia (Acute) Hypothyroidism (Acute) Insomnia (Acute) Internal hemorrhoids (Acute) Laryngopharyngeal reflux (Acute) Morbid obesity (Acute) Obstructive sleep apnea (Acute) Vitamin D insufficiency (Acute) Intrinsic asthma, unspecified (Chronic 02/13/12) Bipolar disorder, unspecified (Chronic 02/13/12) Sec DM wo comp uncontrld (Chronic 02/13/12) Gastro-esophageal reflux disease without esophagitis (Chronic 02/13/12) Mgr NOS wo ntrc w st mgr (Chronic 02/13/12) Morbid obesity (Chronic 02/13/12) Status post tubal ligation (Resolved 02/13/12) Migraine (Chronic) Bipolar disorder (Chronic) Ovarian cyst (Resolved) Endometriosis (Chronic) Hyperlipidemia (Chronic) Neck pain, chronic (Chronic) Vertigo (Chronic) Diabetic neuropathy (Chronic) Asthma (Chronic) Sciatica (Chronic) Anal fissure (Chronic) TIA (transient ischemic attack) (Resolved 06/07/14) Hiatal hernia (Chronic) IBS (irritable bowel syndrome) (Chronic) Allergic rhinitis (Chronic) Gallstone (Resolved) Gastritis (Resolved) Chronic nausea (Inactive) Dehydration (Inactive) Hypomagnesemia (Inactive) Surgical History History of cholecystectomy (Resolved) H/O: hysterectomy (Resolved) History of arthroscopy of right shoulder History of bladder surgery History of knee surgery History of shoulder surgery History of tonsillectomy History of tooth extraction History of tubal ligation Family History Father Myocardial infarction Prostate cancer Diabetes Hypertension Mother , 2008 Myocardial infarction Dementia Diabetes Hypertension Other No significant family history Social History Preferred Language: Maltese Communication Ability: Effective Visual Impairment: No Limitations 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 and A total of 10 systems reviewed and were otherwise negative Physical Exam Vital Signs Vital Signs - 24 hr 04/21/19 13:01 04/21/19 13:30 04/21/19 14:00 Pulse Rate 102 H 100 H 102 H Pulse Rate from SpO2 Sensor Respiratory Rate 17 19 15 Blood Pressure 128/80 128/81 125/79 Blood Pressure Mean 96 96 94 Pulse Oximetry 96 94 96 Oxygen Delivery Method Room Air Room Air Room Air 04/21/19 15:00 Pulse Rate 102 H Pulse Rate from SpO2 Sensor 102 H Respiratory Rate 14 Blood Pressure 136/78 Blood Pressure Mean 97 Pulse Oximetry 94 Oxygen Delivery Method GENERAL: Awake, alert, well-appearing, in no distress. BMI 45.5. HENT: Normocephalic, atraumatic. Oropharynx with dry mucous membranes and otherwise unremarkable. EYES: Normal conjunctiva. Sclera non-icteric. NECK: Supple. No nuchal rigidity. FROM. No JVD. RESPIRATORY: Clear to auscultation bilaterally. CARDIAC: Tachycardic rate, normal rhythm. Extremities warm and well perfused. Pulses equal. ABDOMEN: Soft, non-distended. No tenderness to palpation. No rebound or guarding. No masses. RECTAL: Deferred. MUSCULOSKELETAL: Chest examination reveals no tenderness. The back is symmetrical on inspection without obvious abnormality. There is no CVA tenderness to palpation. No joint edema. LOWER EXTREMITIES: Calves are equal size bilaterally and non-tender. No edema. No discoloration. NEURO: Normal sensorium. No sensory or motor deficits noted. SKIN: No rash or jaundice noted. Course 1205:The patient was evaluated in room C06. A complete history and physical examination was performed. 1429: The patient states that she vomited and notes some red droplets on the paper cup of the emesis bag. 1438: I discussed the patient's case with CASSANDRA Chavez, who will evaluate the patient for further management and care. 1445: Upon reevaluation, the patient is resting comfortably. I discussed laboratory and radiographic results with the patient. She verbalized agreement of the treatment plan. The patient will be evaluated for further management and care. Consultations Consultation #1: I discussed the patient's case with CASSANDRA Chavez, who will evaluate the patient for further management and care. Time: 14:38 Administered Medications Amitriptyline HCl (Elavil) 50 mg PO [facility] Stop: 05/21/19 20:59 Last Admin: 04/21/19 21:21 Dose: 50 mg Documented by: [id number] Aripiprazole (Abilify) 10 mg PO [facility] Stop: 05/21/19 20:59 Last Admin: 04/21/19 21:23 Dose: 10 mg Documented by: [id number] Aspirin (Ecotrin Ectab) 81 mg PO DAILY [facility] Stop: 05/22/19 08:59 Last Admin: 04/22/19 09:51 Dose: 81 mg Documented by: [id number] Atorvastatin Calcium (Lipitor) 20 mg PO [facility] Stop: 05/21/19 20:59 Last Admin: 04/21/19 21:23 Dose: 20 mg Documented by: [id number] Bupropion HCl (Wellbutrin-Sr) 100 mg PO [facility] Stop: 05/22/19 08:59 Last Admin: 04/22/19 09:51 Dose: 100 mg Documented by: [id number] Cholestyramine Resin (Questran) 4 gm PO BID@1000,2200 [facility] Stop: 05/21/19 21:59 Last Admin: 04/22/19 09:48 Dose: 4 gm Documented by: [id number] Admin: 04/21/19 22:48 Dose: 4 gm Documented by: [id number] Diphenhydramine HCl (Benadryl Capsule) 25 mg PO HS [facility] Stop: 05/21/19 20:59 Last Admin: 04/21/19 21:21 Dose: 25 mg Documented by: [id number] Docusate Sodium (Colace) 100 mg PO BID [facility] Stop: 05/21/19 20:59 Last Admin: 04/22/19 09:50 Dose: 100 mg Documented by: [id number] Admin: 04/21/19 21:21 Dose: 100 mg Documented by: [id number] Gabapentin (Neurontin) 900 mg PO [facility] Stop: 05/21/19 20:59 Last Admin: 04/21/19 21:21 Dose: 900 mg Documented by: [id number] Sodium Chloride (1/2 Nss) 1,000 mls @ 100 mls/hr IV .Q10H [facility] Stop: 05/21/19 16:48 Last Admin: 04/22/19 12:11 Dose: 100 mls/hr Documented by: [id number] Infusion: 04/22/19 12:10 Dose: 100 mls/hr Documented by: [id number] Admin: 04/22/19 02:10 Dose: 100 mls/hr Documented by: [id number] Infusion: 04/22/19 02:10 Dose: 100 mls/hr Documented by: [id number] Infusion: 04/21/19 23:41 Dose: 100 mls/hr Documented by: [id number] Admin: 04/21/19 17:31 Dose: 100 mls/hr Documented by: [id number] Ibuprofen (Advil) 200 mg PO Q6H PRN PRN Reason: Pain Stop: 05/21/19 16:48 Last Admin: 04/22/19 09:47 Dose: 200 mg Documented by: [id number] Insulin Aspart (Novolog Flexpen) 0 units SC ACHS [facility] Stop: 05/21/19 16:48 Last Admin: 04/22/19 12:15 Dose: 18 units Documented by: [id number] Cosigned by: [id number] Admin: 04/22/19 09:00 Dose: 13 units Documented by: [id number] Cosigned by: [id number] Admin: 04/21/19 21:20 Dose: 4 units Documented by: [id number] Cosigned by: [id number] Admin: 04/21/19 17:45 Dose: 14 units Documented by: [id number] Cosigned by: [id number] Levothyroxine Sodium (Synthroid) 75 mcg PO [facility] Stop: 05/21/19 20:59 Last Admin: 04/21/19 21:22 Dose: 75 mcg Documented by: [id number] Lisinopril (Zestril) 10 mg PO [facility] Stop: 05/21/19 20:59 Last Admin: 04/21/19 21:22 Dose: 10 mg Documented by: [id number] Loratadine (Claritin) 10 mg PO [facility] Stop: 05/21/19 20:59 Last Admin: 04/21/19 21:23 Dose: 10 mg Documented by: [id number] Magnesium Oxide (Mag-Ox) 400 mg PO BID [facility] Stop: 05/21/19 20:59 Last Admin: 04/22/19 09:49 Dose: 400 mg Documented by: [id number] Admin: 04/21/19 21:22 Dose: 400 mg Documented by: [id number] Metoclopramide HCl (Reglan) 5 mg PO BID [facility] Stop: 05/21/19 20:59 Last Admin: 04/22/19 09:50 Dose: 5 mg Documented by: [id number] Admin: 04/21/19 21:23 Dose: 5 mg Documented by: [id number] Miscellaneous (Order Awaiting Action) 1 ea N/A QS [facility] Stop: 05/22/19 07:59 Last Admin: 04/22/19 09:44 Dose: Not Given Documented by: [id number] Miscellaneous (Order Awaiting Action) 1 ea N/A QS [facility] Stop: 05/22/19 00:00 Last Admin: 04/22/19 09:44 Dose: Not Given Documented by: [id number] Admin: 04/22/19 01:02 Dose: Not Given Documented by: [id number] Multivitamins/Minerals (Multivitamin W/ Minerals Tab) 1 tab PO DAILY [facility] Stop: 05/22/19 08:59 Last Admin: 04/22/19 09:51 Dose: 1 tab Documented by: [id number] Olanzapine (Zyprexa) 20 mg PO HS [facility] Stop: 05/21/19 20:59 Last Admin: 04/21/19 21:21 Dose: 20 mg Documented by: [id number] Ondansetron HCl (Zofran) 4 mg IV Q6H PRN PRN Reason: Nausea Stop: 05/21/19 16:48 Last Admin: 04/22/19 08:54 Dose: 4 mg Documented by: [id number] Admin: 04/21/19 18:39 Dose: 4 mg Documented by: [id number] Pantoprazole Sodium (Protonix) 40 mg PO DAILY [facility] Stop: 05/22/19 08:59 Last Admin: 04/22/19 09:51 Dose: 40 mg Documented by: [id number] Ranitidine HCl (Zantac) 300 mg PO HS [facility] Stop: 05/21/19 20:59 Last Admin: 04/21/19 21:22 Dose: 300 mg Documented by: [id number] Fluticasone/Salmeterol (Advair Diskus 250/50) 1 puffs INH BID [facility] Stop: 05/21/19 20:59 Last Admin: 04/22/19 09:47 Dose: 1 puffs Documented by: [id number] Admin: 04/21/19 21:21 Dose: 1 puffs Documented by: [id number] Sucralfate (Carafate Tab) 1 gm PO BID PRN PRN Reason: Acid Reflux Stop: 05/21/19 16:48 Last Admin: 04/22/19 12:18 Dose: 1 gm Documented by: [id number] Discontinued Medications Sodium Chloride (Nss 1000ml) 1,000 mls @ 999 mls/hr IV .Q1H1M ONE Stop: 04/21/19 12:59 Last Infusion: 04/21/19 13:30 Dose: 0 mls/hr Documented by: [id number] Admin: 04/21/19 12:14 Dose: 999 mls/hr Documented by: [id number] Famotidine (Pepcid 20mg Iv Push) 20 mg in 5 mls @ 2.5 mls/min IV NOW STA Stop: 04/21/19 12:02 Last Admin: 04/21/19 12:14 Dose: 2.5 mls/min Documented by: [id number] Prochlorperazine (Compazine) 2 mls @ 1 mls/min IV ONE ONE Stop: 04/21/19 14:30 Last Admin: 04/21/19 14:37 Dose: 1 mls/min Documented by: [id number] Metoclopramide HCl (Reglan) 10 mg IV NOW STA Stop: 04/21/19 12:00 Last Admin: 04/21/19 12:14 Dose: 10 mg Documented by: [id number] Miscellaneous (Insulin Protocol Dka Goal Range) 1 ea N/A ONE ONE Stop: 04/21/19 16:50 Last Admin: 04/21/19 18:33 Dose: Not Given Documented by: [id number] Prednisone (Prednisone) 40 mg PO TODAY@0900 [facility] Stop: 04/22/19 09:01 Last Admin: 04/22/19 09:49 Dose: 40 mg Documented by: [id number] Zolpidem Tartrate (Ambien) 10 mg PO HS [facility] Stop: 05/21/19 20:59 Last Admin: 04/21/19 21:22 Dose: 10 mg Documented by: [id number] Medical Decision Making Differential Diagnosis Differential diagnosis: Etiologies such as metabolic, infection, hypo/hyperglycemia, electrolyte abnormalities, cardiac sources, intracerebral event, toxicologic, neurologic, as well as others were entertained. Medical Records Attestation: I reviewed the patient's medical records. Home Medications Current Medication List: was personally reviewed by me Laboratory Data Attestation: I reviewed the patient's lab results. Result diagrams: 04/22/19 05:18 04/22/19 05:18 Lab Results 04/21/19 04/21/19 04/21/19 Range/Units 11:20 11:25 11:25 WBC 11.41 H (4.8-10.8) K/uL RBC 5.10 (4.2-5.4) M/uL Hgb 14.6 (12.0-16.0) g/dL Hct 42.8 (37-47) % MCV 83.9 (80-100) fL MCH 28.6 (25-34) pg MCHC 34.1 (32-36) g/dL RDW Std Deviation 40.8 (36.4-46.3) fL RDW Coeff of [place] 13.4 (11.5-14.5) % Plt Count 357 (130-400) K/uL MPV 9.5 (7.4-10.4) fL Immature Gran % (Auto) 0.7 % Neut % (Auto) 90.5 % Lymph % (Auto) 8.0 % Garvin % (Auto) 0.8 % Eos % (Auto) 0.0 % Baso % (Auto) 0.0 % Immature Gran # (Auto) 0.08 H (0.00-0.02) K/uL Neut # (Auto) 10.33 H (1.4-6.5) K/uL Lymph # (Auto) 0.91 L (1.2-3.4) K/uL Garvin # (Auto) 0.09 L (0.11-0.59) K/uL Eos # (Auto) 0.00 (0-0.5) K/uL Baso # (Auto) 0.00 (0-0.2) K/uL Sodium Cancelled Potassium Cancelled Chloride Cancelled Carbon Dioxide Cancelled Anion Gap Cancelled BUN Cancelled Creatinine Cancelled Est Cr Clr Drug Dosing Cancelled Est GFR ( Amer) Cancelled Est GFR (Non-Af Amer) Cancelled BUN/Creatinine Ratio Cancelled Glucose Cancelled POC Glucose (70-99) Osmolality (280-300) mOsm/kg Calcium Cancelled Phosphorus (2.5-4.9) mg/dl Magnesium (1.8-2.4) mg/dl Total Bilirubin Cancelled Direct Bilirubin (0-0.2) mg/dl AST Cancelled ALT Cancelled Alkaline Phosphatase Cancelled Total Protein Cancelled Albumin Cancelled Globulin Cancelled Albumin/Globulin Ratio Cancelled Lipase Cancelled Beta-Hydroxybutyric Acd (0.2-2.81) mg/dl Urine Color Yellow Urine Appearance Clear (Clear) Urine pH 5.0 (4.5-7.5) Ur Specific [place] 1.039 H (1.000-1.030) Urine Protein Negative (Negative) Urine Glucose (UA) 3+ H (Negative) Urine Ketones 1+ H (Negative) Urine Blood Negative (Negative) Urine Nitrite Negative (Negative) Urine Bilirubin Negative (Negative) Urine Urobilinogen Negative (Negative) Ur Leukocyte Esterase Negative (Negative) 04/21/19 04/21/19 04/21/19 Range/Units 11:25 11:25 11:28 WBC (4.8-10.8) K/uL RBC (4.2-5.4) M/uL Hgb (12.0-16.0) g/dL Hct (37-47) % MCV (80-100) fL MCH (25-34) pg MCHC (32-36) g/dL RDW Std Deviation (36.4-46.3) fL RDW Coeff of [place]on (11.5-14.5) % Plt Count (130-400) K/uL MPV (7.4-10.4) fL Immature Gran % (Auto) % Neut % (Auto) % Lymph % (Auto) % [place]vin % (Auto) % Eos % (Auto) % Baso % (Auto) % Immature Gran # (Auto) (0.00-0.02) K/uL Neut # (Auto) (1.4-6.5) K/uL Lymph # (Auto) (1.2-3.4) K/uL [place]vin # (Auto) (0.11-0.59) K/uL Eos # (Auto) (0-0.5) K/uL Baso # (Auto) (0-0.2) K/uL Sodium 136 Potassium 4.1 Chloride 100 Carbon Dioxide 21 Anion Gap 15.0 H BUN 11 Creatinine 1.13 Est Cr Clr Drug Dosing 77.5 Est GFR ( Amer) 68.0 Est GFR (Non-Af Amer) 58.6 BUN/Creatinine Ratio 9.6 L Glucose 341 H* POC Glucose 329 H* (70-99) Osmolality 300 (280-300) mOsm/kg Calcium 8.8 Phosphorus 2.9 (2.5-4.9) mg/dl Magnesium 1.9 (1.8-2.4) mg/dl Total Bilirubin 0.3 Direct Bilirubin < 0.1 (0-0.2) mg/dl AST 58 H ALT 61 Alkaline Phosphatase 122 H Total Protein 8.0 Albumin 3.6 Globulin 4.4 H Albumin/Globulin Ratio 0.8 L Lipase 87 Beta-Hydroxybutyric Acd 3.53 H (0.2-2.81) mg/dl Urine Color Urine Appearance (Clear) Urine pH (4.5-7.5) Ur Specific [place] (1.000-1.030) Urine Protein (Negative) Urine Glucose (UA) (Negative) Urine Ketones (Negative) Urine Blood (Negative) Urine Nitrite (Negative) Urine Bilirubin (Negative) Urine Urobilinogen (Negative) Ur Leukocyte Esterase (Negative) 04/21/19 Range/Units 13:50 WBC (4.8-10.8) K/uL RBC (4.2-5.4) M/uL Hgb (12.0-16.0) g/dL Hct (37-47) % MCV (80-100) fL MCH (25-34) pg MCHC (32-36) g/dL RDW Std Deviation (36.4-46.3) fL RDW Coeff of [place] (11.5-14.5) % Plt Count (130-400) K/uL MPV (7.4-10.4) fL Immature Gran % (Auto) % Neut % (Auto) % Lymph % (Auto) % [place]vin % (Auto) % Eos % (Auto) % Baso % (Auto) % Immature Gran # (Auto) (0.00-0.02) K/uL Neut # (Auto) (1.4-6.5) K/uL Lymph # (Auto) (1.2-3.4) K/uL [place]vin # (Auto) (0.11-0.59) K/uL Eos # (Auto) (0-0.5) K/uL Baso # (Auto) (0-0.2) K/uL Sodium Potassium Chloride Carbon Dioxide Anion Gap BUN Creatinine Est Cr Clr Drug Dosing Est GFR ( Amer) Est GFR (Non-Af Amer) BUN/Creatinine Ratio Glucose POC Glucose 228 H (70-99) Osmolality (280-300) mOsm/kg Calcium Phosphorus (2.5-4.9) mg/dl Magnesium (1.8-2.4) mg/dl Total Bilirubin Direct Bilirubin (0-0.2) mg/dl AST ALT Alkaline Phosphatase Total Protein Albumin Globulin Albumin/Globulin Ratio Lipase Beta-Hydroxybutyric Acd (0.2-2.81) mg/dl Urine Color Urine Appearance (Clear) Urine pH (4.5-7.5) Ur Specific [place] (1.000-1.030) Urine Protein (Negative) Urine Glucose (UA) (Negative) Urine Ketones (Negative) Urine Blood (Negative) Urine Nitrite (Negative) Urine Bilirubin (Negative) Urine Urobilinogen (Negative) Ur Leukocyte Esterase (Negative) Blood Pressure Blood Pressure Findings: Elevated blood pressure Blood Pressure Disposition: Referred to patients primary care provider [place] Narrative The patient is a pleasant 43-year-old woman with a past medical history of migraines, vertigo, hypertension, gastroparesis, hypothyroidism. and BPD who presents emergency department with concern for her elevated blood sugars after being seen the emergency department several days ago for the same where she reports she was "to come back if her sugars continue to be elevated for admission". On arrival patient is no acute distress, afebrile, heart rate in the 130s and otherwise stable vital signs. Patient does appear clinically dry. Abdomen is benign. WBC 11.4, nonspecific. H/H and platelets within normal limits. Chemistry without significant acidosis. Initial glucose on chemistry 340s. However after IV fluid hydration improved to 220s. Baltazar's within normal limits therefore HHS not likely. The patient reports significantly labile blood sugars in the setting of her gastroparesis and so will defer additional SSI at this time. LFTs unremarkable. Patient was given a p.o. trial prior to planned discharge however she subsequently had recurrence of her nausea and vomiting. Thus, given the patient's labile blood sugars in the setting of her gastroparesis which also occurs in the setting of the patient's fifth ED visit in the past month will admit for further management. Case d/w Dr. Zamudio, [facility] [place] hospitalist, who will evaluate the patient for admission. Impression & Plan Dehydration, Diabetes mellitus with gastroparesis, Hyperglycemia due to type 2 diabetes mellitus Discharge Plan Visit Data *Final* Discharge Date/Time: 04/21/19 16:20 Chief Complaint: Hyperglycemia Stated Complaint: VOMITING, HYPERGLYCEMIA ED Provider: Best Tovar Discharge Problem: Dehydration, Diabetes mellitus with gastroparesis, Hyperglycemia due to type 2 diabetes mellitus Patient Disposition: Admitted As Inpatient Condition: Good Discharge Instructions Interventions: ED Discharge Assessment Last Done: 04/21/19 16:20 Discharge Problem: Hyperglycemia due to type 2 diabetes mellitus Qualifiers: Diabetes mellitus long-term insulin use: unspecified long-term insulin use status Qualified Code(s): E11.65 - Type 2 diabetes mellitus with hyperglycemia The scribe's documentation has been prepared under my direction and personally reviewed by me in its entirety. I confirm that the note above accurately reflects all work, treatment, procedures, and medical decision making performed by me.
[2019-04-21] MEDS ORDERED: PROCHLORPERAZINE 2 ML IV ONE (14:29)
--- NOTE | 2019-04-21 15:39 | History & Physical Report ---
Date of Service April 21, 2019 Assessment & Plan (1) Hyperglycemia due to type 2 diabetes mellitus: Likely related to recent prednisone use SSI insulin with IVF to monitor Will not use full DKA protocol as this seems to be pre-DKA Increased BHA A1c pending DM educator to see for SSI teaching (2) Diabetes mellitus with gastroparesis: Likely worsened gastroparesis in the setting of elevated BS Monitor with reglan PRP WNL Holding home metformin and insulin for now (3) Hypertension: continue home meds (4) Anxiety: continue home meds (5) Asthma, moderate persistent: continue home meds States predisone is helping her bronchitis Continue--tomorrow is last day for 40mg dose, goes to 20mg QD for several days "until the bottle is gone" (6) Depression: continue home meds (7) Hyperlipidemia: continue home meds (8) Hypothyroidism: continue home meds (9) Insomnia: continue home meds (10) Laryngopharyngeal reflux: continue home meds (11) Obstructive sleep apnea: States she was told her CPAP was not effective for her and to stop use (12) Bipolar disorder, unspecified: continue home meds (13) TIA (transient ischemic attack): Aspirin 81mg, continue (14) DVT prophylaxis: SCDs, ambulation History of Present Illness Primary Care Provider: Lilibeth Sharma MD 43 y/o F c/o hyperglycemia. Pt states she saw her PCP on Monday for a cough and some mild SOB. She was dx with bronchitis and given a script for prednisone. She did not crop picker the prednisone until night. Her first dose was on Monday. She was seen in the ED on Monday for n/v and her BS was 400. Pt has gastroparesis and has been having worsening n/v over the last 3-4 days. Some meals she can tolerate, some she could not during this time. The last meal she was able to tolerate was last night when she had steak, potatoes, and broccoli at [facility]. She states that she only ate about half of the meal and she was keeping it down initially, but then threw up half of what she had eaten. Pt was given insulin for her elevated BS in the ED. She was given crackers and then had several episodes of n/v. She did not feel that she could go home with the ongoing n/v with the elevated BS. She was given reglan in the ED, which is a new medication for her. She does feel that it helped somewhat. Pt's dx of gastroparesis is relatively new. She states that sometimes she has instant emesis but sometimes her food passes right through her and she has whole pieces of food in her stool. Pt gets chest pain with her gastroparesis, but no new chest pain. She has SOB with emesis at times. She does feel that the prednisone has helped her cough/SOB overall. Pt denies fever, abd pain, c/d, LE pain. She does get LE swelling at times. Allergies Allergy/AdvReac Type Severity Reaction Status Date / Time bee venom protein (honey bee) Allergy Intermediate LARGE Verified 04/21/19 11:22 SWELLING/RED/WELT. TURNS INTO BRUISING morphine Allergy Intermediate LOCALIZED Verified 04/21/19 11:22 REACTION: RED/WELTS pollen extracts Allergy Intermediate ITCHY Verified 04/21/19 11:22 EYES/SCRATCHY THROAT. SWOLLEN EYES adhesive Allergy Unknown VERY RED Verified 04/21/19 11:22 SKIN AND ITCHY citalopram Allergy Unknown JAW PAIN Verified 04/21/19 11:22 AND HEADACHES Dust Allergy Intermediate ITCHY Uncoded 04/21/19 11:22 EYES/SCRATCHY THROAT. SWOLLEN EYES Home Medications Home Medications Medication Instructions Recorded Confirmed Type aripiprazole [Abilify] 10 mg PO HS 05/27/18 04/21/19 History diphenhydramine HCl [Benadryl 25 mg PO HS 05/27/18 04/21/19 History Allergy] docusate sodium 100 mg PO BID 05/27/18 04/21/19 History gabapentin 900 mg PO HS 05/27/18 04/21/19 History ipratropium-albuterol 3 ml INHALATION Q4H PRN 05/27/18 04/21/19 History lorazepam 0.5 mg PO HS PRN 05/27/18 04/21/19 History olanzapine 20 mg PO HS 05/27/18 04/21/19 History ondansetron 4 mg PO Q6H PRN 05/27/18 04/21/19 History zolpidem [Ambien] 10 mg PO HS 05/27/18 04/21/19 History metoclopramide HCl 5 mg PO BID #10 tab 05/28/18 04/21/19 Rx hevdjdjmjnrv-zql-iecw-FA-vit K 1 tab-cap PO HS 07/10/18 04/21/19 History [Multi For Her] promethazine 25 mg PO Q6H PRN #20 tab 09/07/18 04/21/19 Rx dicyclomine 10 mg PO TID PRN #20 cap 11/19/18 04/21/19 Rx ibuprofen 200 mg PO Q6H PRN 02/08/19 04/21/19 History albuterol sulfate HFA 90 2 puff INHALATION Q6H PRN 90 Days 02/12/19 04/21/19 Rx mcg/actuation aerosol inhaler #6.7 gm azelastine 137 mcg (0.1 %) nasal 1 sprays INTNAS BID #30 ml 02/12/19 04/21/19 Rx spray aerosol diphenoxylate-atropine 2.5 10 ml PO BID PRN #60 ml 02/12/19 04/21/19 Rx mg-0.025 mg/5 mL oral liquid fluticasone 250 mcg-salmeterol 50 1 inh INHALATION BID 90 Days #60 ea 02/12/19 04/21/19 Rx mcg/dose blistr powdr for inhalation fluticasone propionate 50 2 spray INTRANASAL DAILY PRN 90 02/12/19 04/21/19 Rx mcg/actuation nasal Days #47.4 gm spray,suspension insulin aspart (U-100) 100 unit/mL See Rx Instructions .ROUTE 02/12/19 04/21/19 Rx (3 mL) subcutaneous pen .COMPLEX #15 ml levothyroxine 75 mcg tablet 75 mcg PO HS 90 Days #90 tab 02/12/19 04/21/19 Rx loratadine 10 mg tablet 10 mg PO HS 90 Days #90 tab 02/12/19 04/21/19 Rx meclizine 25 mg tablet 25 mg PO TID PRN #90 tab 02/12/19 04/21/19 Rx metformin 1,000 mg tablet 2,000 mg PO HS 90 Days #180 tab 02/12/19 04/21/19 Rx polyethylene glycol 3350 17 17 g PO HS PRN 90 Days #527 gm 02/12/19 04/21/19 Rx gram/dose oral powder prucalopride 2 mg tablet 2 mg PO DAILY #30 tab 02/12/19 04/21/19 Rx ranitidine 300 mg tablet 300 mg PO HS 90 Days #90 tab 02/12/19 04/21/19 Rx aspirin 81 mg tablet,delayed 81 mg PO DAILY tab 03/08/19 04/21/19 History release Mobility 1 tab PO DAILY PRN 04/07/19 04/21/19 History amitriptyline 50 mg PO HS 04/07/19 04/21/19 History epinephrine [EpiPen] 0.3 mg IM Q10M PRN 04/07/19 04/21/19 History insulin glargine U-300 conc 65 units SQ QPM 04/07/19 04/21/19 History [T[employer] SoloStar U-300 Insulin] magnesium oxide 500 mg PO BID #14 cap 04/07/19 04/21/19 Rx sucralfate 1 gm PO BID PRN 04/07/19 04/21/19 History pantoprazole 40 mg tablet,delayed 40 mg PO DAILY #90 tab 04/12/19 04/21/19 Rx release cholestyramine (with sugar) 4 gram 4 gm PO BID 04/13/19 04/21/19 History oral powder atorvastatin 20 mg tablet 20 mg PO HS 90 Days #90 tab 04/15/19 04/21/19 Rx lisinopril 10 mg tablet 10 mg PO HS 90 Days #90 tab 04/17/19 04/21/19 Rx bupropion HCl [Wellbutrin SR] 100 mg PO QAM 04/21/19 04/21/19 History prednisone 10 mg PO UD 04/21/19 04/21/19 History Past Med/Surg History Medical History Hypomagnesemia (Acute) Dehydration (Acute) Chronic nausea (Acute) Hypertension (Acute) Chest pain (Acute) Anxiety (Acute) Hyperglycemia (Acute) Allergy or toxic reaction to venom (Acute) Asthma, moderate persistent (Acute) Chronic sinusitis (Acute) Classic migraine with aura (Acute) 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 hearing of left ear (Acute) Diverticulosis (Acute 02/13/12) Depression (Acute) Diabetes mellitus with diabetic neuropathy (Acute) Diabetes mellitus with insulin therapy (Acute) Fatty infiltration of liver (Acute) Gastroparesis (Acute) Hearing difficulty (Acute) Hyperlipidemia (Acute) Hypothyroidism (Acute) Insomnia (Acute) Internal hemorrhoids (Acute) Laryngopharyngeal reflux (Acute) Morbid obesity (Acute) Obstructive sleep apnea (Acute) Vitamin D insufficiency (Acute) Intrinsic asthma, unspecified (Chronic 02/13/12) Bipolar disorder, unspecified (Chronic 02/13/12) Sec DM wo comp uncontrld (Chronic 02/13/12) Gastro-esophageal reflux disease without esophagitis (Chronic 02/13/12) Mgr NOS wo ntrc w st mgr (Chronic 02/13/12) Morbid obesity (Chronic 02/13/12) Status post tubal ligation (Resolved 02/13/12) Migraine (Chronic) Bipolar disorder (Chronic) Ovarian cyst (Resolved) Endometriosis (Chronic) Hyperlipidemia (Chronic) Neck pain, chronic (Chronic) Vertigo (Chronic) Diabetic neuropathy (Chronic) Asthma (Chronic) Sciatica (Chronic) Anal fissure (Chronic) TIA (transient ischemic attack) (Resolved 06/07/14) Hiatal hernia (Chronic) IBS (irritable bowel syndrome) (Chronic) Allergic rhinitis (Chronic) Gallstone (Resolved) Gastritis (Resolved) Surgical History History of cholecystectomy (Resolved) H/O: hysterectomy (Resolved) History of arthroscopy of right shoulder History of bladder surgery History of knee surgery History of shoulder surgery History of tonsillectomy History of tooth extraction History of tubal ligation Family History Father Myocardial infarction Prostate cancer Diabetes Hypertension Mother , 2008 Myocardial infarction Dementia Diabetes Hypertension Other No significant family history Social History Preferred Language: [place] Communication Ability: Effective Visual Impairment: No Limitations Hearing Ability: Normal marital status: Current Living Situation: Spouse current occupational status: disabled Feels Safe at Home: Yes Smoking Status: Never smoker Second Hand Exposure: Yes ( smokes) ; Hx Alcohol Use: Yes (quit several years ago) Hx Substance Use: Yes (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") Substance Use Type Other:: cocaine, marijuana, meth hx Dental Care, Regularly: Yes Review of Systems Review of Systems: Pertinent positives and negatives reviewed in HPI--all others negative Physical Exam Constitutional: WD/WN, vitals as above Pt is sitting up in bed with legs crossed and comfortably using her ipad Eyes: normal visual chatman by confrontation and + anicteric sclerae Neck: normal visual inspection and trachea midline Respiratory: normal respiratory effort, lungs clear to auscultation Cardiovascular: Rate/Rhythm: regular rate and regular rhythm Gastrointestinal (Abdomen): Inspection/Auscultation: abdomen not distended Percussion/Palpation: abdomen soft; abdomen nontender Musculoskeletal: Head/Neck/Chest: normocephalic and head atraumatic trace non-pitting edema, peripheral pulses intact Skin: no rashes, warm and dry Neurologic: awake; not confused Speech / Cognition: normal speech Psychiatric: A+Ox3, euthymic affect Results & Data Vital Signs (Past 12 Hours) Vital Signs Temp Pulse Resp BP Pulse Ox 04/21/19 15:00 102 H 14 136/78 94 04/21/19 14:00 102 H 15 125/79 96 04/21/19 13:30 100 H 19 128/81 94 04/21/19 13:01 102 H 17 128/80 96 04/21/19 12:30 106 H 19 124/82 95 04/21/19 12:00 106 H 20 138/70 97 04/21/19 11:30 112 H 20 143/87 H 96 04/21/19 11:25 113 H 16 148/84 H 96 04/21/19 11:05 36.5 C 119 H 20 163/111 H 97 Code Status & VTE Plan Code Status Full code, although pt states no prolonged mechanical life support, feeding tubes, etc PG Care Time/CCT Total # of Minutes Spent Total Time Spent with Patient: Total time spent is greater than 50% in coordination of care (as documented) at patient's floor/unit and/or counseling patient: (1) Hyperglycemia due to type 2 diabetes mellitus Diabetes mellitus half-way insulin use: unspecified half-way insulin use status Qualified Code(s): E11.65 - Type 2 diabetes mellitus with hyperglycemia (2) Hypertension Hypertension type: essential hypertension Qualified Code(s): I10 - Essential (primary) hypertension
[2019-04-21] MEDS ORDERED: DICYCLOMINE HCL 10 MG CAP PO PRN (16:49)
[2019-04-21] MEDS ORDERED: ALBUTEROL HFA 8 GM INHALER INH PRN (16:49)
[2019-04-21] MEDS ORDERED: DIPHENOXYLATE/ATROPINE 2.5/0.025MG TAB PO PRN (16:49)
[2019-04-21] MEDS ORDERED: EPINEPHrine 1 MG/ML AMP IM PRN (16:49)
[2019-04-21] MEDS ORDERED: LORazepam 0.5 MG TAB PO PRN (16:49)
[2019-04-21] MEDS ORDERED: PENDING 1/2NSS+20mEq KCL IVF SCH (16:49)
[2019-04-21] MEDS ORDERED: SUCRALFATE 1 GM TAB PO PRN (16:49)
[2019-04-21] MEDS ORDERED: DKA GOAL RANGE 150-250 mg/dl ONE (16:49)
[2019-04-21] MEDS ORDERED: DEXTROSE 50% 50 ML SYRINGE IV PRN (16:49)
[2019-04-21] MEDS ORDERED: IBUPROFEN 200 MG TAB PO PRN (16:49)
[2019-04-21] MEDS ORDERED: ONDANSETRON 4 MG OD TAB PO PRN (16:49)
[2019-04-21] MEDS ORDERED: GLUCOSE 10 TABS/TUBE PO PRN (16:49)
[2019-04-21] MEDS ORDERED: METOCLOPRAMIDE HCL 5 MG TABLET PO PRN (16:49)
[2019-04-21] MEDS ORDERED: ACETAMINOPHEN 325 MG TAB PO PRN (16:49)
[2019-04-21] MEDS ORDERED: FLUTICASONE PROPIONATE NA SPR 16 GM BTL NAE PRN (16:49)
[2019-04-21] MEDS ORDERED: ALBUT/IPRATROP 3MG/0.5MG NEB 3 ML VIAL INH PRN (16:49)
[2019-04-21] MEDS ORDERED: GLUCOSE 40% GEL 15 GM TUBE PO PRN (16:49)
[2019-04-21] MEDS ORDERED: INSULIN ASPART 100 UNITS/ML 3 ML PEN SC SCH (16:49)
[2019-04-21] MEDS ORDERED: GLUCAGON FOR INJ 1 MG VIAL SQ PRN (16:49)
[2019-04-21] MEDS ORDERED: CARBOHYDRATES FOR HYPOGLYCEMIA PO PRN (16:49)
[2019-04-21] MEDS ORDERED: [UNRECOGNIZED DRUG - OTHER] PO PRN (16:49)
[2019-04-21] MEDS ORDERED: PROMETHAZINE HCL 25 MG TAB PO PRN (16:49)
[2019-04-21] MEDS ORDERED: PENDING D5 1/2NS+20mEq KCL IVF SCH (16:49)
[2019-04-21] MEDS ORDERED: MAGNESIUM HYDROXIDE SUSP 30 ML UDC PO PRN (16:49)
[2019-04-21] MEDS: SODIUM CHLORIDE 0.45 % 1,000 ML IV SCH (17:31)
[2019-04-21] MEDS: INSULIN ASPART 100 UNITS/ML 3 ML PEN SC SCH ×2 (17:45→21:20)
[2019-04-21] MEDS ORDERED: Nursing to Pharmacy Communication ONE (17:48)
[2019-04-21] MEDS ORDERED: POLYETHYLENE (MIRALAX) 17 GM PACK PO PRN (18:28)
[2019-04-21] MEDS: ONDANSETRON INJ 2 MG/ML 2 ML VIAL IV PRN (18:39)
[2019-04-21] MEDS ORDERED: NON-FORMULARY MEDICATION (Azelastine 1 SPRAYS) INTNAS SCH (21:00)
[2019-04-21] MEDS ORDERED: ZOLPIDEM TARTRATE 10 MG TAB PO SCH (21:00)
[2019-04-21] MEDS: OLANZapine 20 MG TABLET PO SCH (21:21)
[2019-04-21] MEDS: GABAPENTIN 300 MG CAP PO SCH (21:21)
[2019-04-21] MEDS: AMITRIPTYLINE HCL 50 MG TAB PO SCH (21:21)
[2019-04-21] MEDS: DOCUSATE SODIUM 100 MG CAP PO SCH (21:21)
[2019-04-21] MEDS: FLUTICASONE/SALMETEROL 250/50 (ADVAIR) 14 PUFF/1 INHALER INH SCH (21:21)
[2019-04-21] MEDS: LISINOPRIL 10 MG TAB PO SCH (21:22)
[2019-04-21] MEDS: MAGNESIUM OXIDE 400 MG TAB PO SCH (21:22)
[2019-04-21] MEDS: LEVOTHYROXINE SODIUM 75 MCG TABLET PO SCH (21:22)
[2019-04-21] MEDS: METOCLOPRAMIDE HCL 5 MG TABLET PO SCH (21:23)
[2019-04-21] MEDS: ATORVASTATIN 20 MG TAB PO SCH (21:23)
[2019-04-21] MEDS: ARIPiprazole 10 MG TAB PO SCH (21:23)
[2019-04-21] MEDS: LORATADINE 10 MG TAB PO SCH (21:23)
[2019-04-21] MEDS: CHOLESTYRAMINE LIGHT 4 GM PKT PO SCH (22:48)
[2019-04-22] MEDS: SODIUM CHLORIDE 0.45 % 1,000 ML IV SCH ×2 (02:10→12:11)
[2019-04-22 06:04] LABS: Basophils # (auto) 0.02 K/uL (0-0.2); Basophils % (auto) 0.2 %; Eosinophils % (auto) 1.1 %; Hematocrit (blood only) 36.9 % (37-47); Hemoglobin 12.3 g/dL (12.0-16.0); Immature Granulocytes # (auto) 0.03 K/uL (0.00-0.02); Immature Granulocytes % (auto) 0.3 %; Lymphocytes # (auto) 2.32 K/uL (1.2-3.4); Lymphocytes % (auto) 25.1 %; Mean Corpuscular Hgb Conc 33.3 g/dL (32-36); Mean Corpuscular Volume 84.4 fL (80-100); Mean Platelet Volume 9.5 fL (7.4-10.4); Monocytes # (auto) 0.61 K/uL (0.11-0.59); Monocytes % (auto) 6.6 %; Neutrophils # (auto) 6.15 K/uL (1.4-6.5); Neutrophils % (auto) 66.7 %; Platelet Count 250 K/uL (130-400); RDW Coefficient of Variation 13.6 % (11.5-14.5); RDW Standard Deviation 41.9 fL (36.4-46.3); Red Blood Count 4.37 M/uL (4.2-5.4); White Blood Count 9.23 K/uL (4.8-10.8)
[2019-04-22 06:30] LABS: Estimated Average Glucose 183 mg/dl
[2019-04-22 06:34] LABS: BUN Creatinine Ratio 13.3 (10-20); Calcium 8.4 mg/dl (8.5-10.1); Creatinine Clr Calc Pharmacy 137.7 ml/min; Est GFR (African American) 124.9; Est GFR (Non-African American) 107.8; Magnesium 2.1 mg/dl (1.8-2.4); Phosphorus 3.8 mg/dl (2.5-4.9); Potassium 3.7 mmol/L (3.5-5.1)
[2019-04-22] MEDS: ONDANSETRON INJ 2 MG/ML 2 ML VIAL IV PRN ×2 (08:54→18:49)
[2019-04-22] MEDS ORDERED: predniSONE 20 MG TAB PO SCH (09:00)
[2019-04-22] MEDS: INSULIN ASPART 100 UNITS/ML 3 ML PEN SC SCH ×4 (09:00→20:28)
[2019-04-22] MEDS: FLUTICASONE/SALMETEROL 250/50 (ADVAIR) 14 PUFF/1 INHALER INH SCH ×2 (09:47→20:23)
[2019-04-22] MEDS: CHOLESTYRAMINE LIGHT 4 GM PKT PO SCH ×2 (09:48→22:06)
[2019-04-22] MEDS: MAGNESIUM OXIDE 400 MG TAB PO SCH ×2 (09:49→20:26)
[2019-04-22] MEDS: DOCUSATE SODIUM 100 MG CAP PO SCH ×2 (09:50→20:24)
[2019-04-22] MEDS: METOCLOPRAMIDE HCL 5 MG TABLET PO SCH ×2 (09:50→20:29)
[2019-04-22] MEDS: PANTOprazole 40 MG TAB PO SCH (09:51)
[2019-04-22] MEDS: ASPIRIN 81 MG ECTAB PO SCH (09:51)
[2019-04-22] MEDS: CEROVITE ADV FORMULA TAB PO SCH (09:51)
[2019-04-22] MEDS: BuPROPion SR 100 MG TABCR PO SCH (09:51)
--- NOTE | 2019-04-22 13:07 | Hospitalist Progress Note ---
Date of Service April 22, 2019 Assessment & Plan (1) Hyperglycemia due to type 2 diabetes mellitus: Likely related to recent prednisone use BS improving SSI insulin with IVF to monitor Will not use full DKA protocol as this seems to be pre-DKA Increased BHA A1c 8.0 DM educator to see for SSI teaching (2) Diabetes mellitus with gastroparesis: Likely worsened gastroparesis in the setting of elevated BS Monitor with reglan, advance diet PRP WNL Holding home metformin and insulin for now (3) Hypertension: continue home meds (4) Anxiety: continue home meds (5) Asthma, moderate persistent: continue home meds States predisone is helping her bronchitis Continue--tomorrow is last day for 40mg dose, goes to 20mg QD for several days "until the bottle is gone" (6) Depression: continue home meds (7) Hyperlipidemia: continue home meds (8) Hypothyroidism: continue home meds (9) Insomnia: Pt having sleep walking that leads to sleep eating over the last few months Has been on ambien 10mg x1 yr, will drop to 5mg and see if this is effective for sleep without the sleep walking effect (10) Laryngopharyngeal reflux: continue home meds (11) Obstructive sleep apnea: States she was told her CPAP was not effective for her and to stop use (12) Bipolar disorder, unspecified: continue home meds (13) TIA (transient ischemic attack): Aspirin 81mg, continue (14) DVT prophylaxis: SCDs, ambulation Subjective Pt states she is feeling overall improved. Still with nausea but able to tolerate clears. "I'm throwing up but nothing is coming up." No SOB or chest pain. She feels the "IV medication" is helping her. Pt tells me that she does not remember to check her BS prior to eating. She checks them sometimes after and they are usually 180s-230s. She tells me that she sleep walks and sleep eats. She states that this has increased over the last few months. She has been on ambien x1 yr. She is uncertain of her dosing but thinks she has been on the same dose since she started it. Review of Systems Review of Systems: Pertinent positives and negatives reviewed in HPI--all others negative Physical Exam Constitutional: WD/WN, vitals as above Eyes: normal visual chatman by confrontation and + anicteric sclerae Neck: normal visual inspection and trachea midline Respiratory: normal respiratory effort, lungs clear to auscultation Cardiovascular: Rate/Rhythm: regular rate and regular rhythm Gastrointestinal (Abdomen): Inspection/Auscultation: abdomen not distended Percussion/Palpation: abdomen soft; abdomen nontender Musculoskeletal: Head/Neck/Chest: normocephalic and head atraumatic Skin: no rashes, warm and dry Neurologic: awake; not confused Speech / Cognition: normal speech Psychiatric: A+Ox3, euthymic affect Results & Data Vital Signs (Past 12 Hours) Vital Signs Temp Pulse Pulse Resp BP BP Pulse Ox 04/22/19 12:57 36.7 C 87 18 139/82 94 04/22/19 10:42 77 04/22/19 08:00 36.5 C 80 20 105/69 95 04/22/19 04:00 36.4 C L 81 18 110/69 96 04/22/19 01:56 91 H PG Care Time/CCT Total # of Minutes Spent Total Time Spent with Patient: Total time spent is greater than 50% in coordination of care (as documented) at patient's floor/unit and/or counseling patient: (1) Hyperglycemia due to type 2 diabetes mellitus Diabetes mellitus fdc insulin use: unspecified fdc insulin use status Qualified Code(s): E11.65 - Type 2 diabetes mellitus with hyperglycemia (2) Hypertension Hypertension type: essential hypertension Qualified Code(s): I10 - Essential (primary) hypertension
[2019-04-22] MEDS: MECLIZINE HCL 25 MG TAB PO PRN (13:55)
[2019-04-22] MEDS: AMITRIPTYLINE HCL 50 MG TAB PO SCH (20:24)
[2019-04-22] MEDS: LEVOTHYROXINE SODIUM 75 MCG TABLET PO SCH (20:24)
[2019-04-22] MEDS: LORATADINE 10 MG TAB PO SCH (20:24)
[2019-04-22] MEDS: ATORVASTATIN 20 MG TAB PO SCH (20:24)
[2019-04-22] MEDS: GABAPENTIN 300 MG CAP PO SCH (20:25)
[2019-04-22] MEDS: ARIPiprazole 10 MG TAB PO SCH (20:26)
[2019-04-22] MEDS: OLANZapine 20 MG TABLET PO SCH (20:27)
[2019-04-22] MEDS: LISINOPRIL 10 MG TAB PO SCH (20:27)
[2019-04-22] MEDS ORDERED: ZOLPIDEM TARTRATE 5 MG TAB PO SCH (21:00)
[2019-04-23] MEDS: MECLIZINE HCL 25 MG TAB PO PRN (05:51)
[2019-04-23] MEDS: DOCUSATE SODIUM 100 MG CAP PO SCH (09:00)
[2019-04-23] MEDS ORDERED: predniSONE 20 MG TAB PO SCH (09:00)
[2019-04-23] MEDS: FLUTICASONE/SALMETEROL 250/50 (ADVAIR) 14 PUFF/1 INHALER INH SCH (09:02)
[2019-04-23] MEDS: BuPROPion SR 100 MG TABCR PO SCH (09:03)
[2019-04-23] MEDS: CEROVITE ADV FORMULA TAB PO SCH (09:04)
[2019-04-23] MEDS: PANTOprazole 40 MG TAB PO SCH (09:04)
[2019-04-23] MEDS: ASPIRIN 81 MG ECTAB PO SCH (09:04)
[2019-04-23] MEDS: MAGNESIUM OXIDE 400 MG TAB PO SCH (09:07)
[2019-04-23] MEDS: INSULIN ASPART 100 UNITS/ML 3 ML PEN SC SCH (09:09)
[2019-04-23] MEDS: METOCLOPRAMIDE HCL 5 MG TABLET PO SCH (09:11)
--- NOTE | 2019-04-23 09:21 | Discharge Summary ---
Date of Service April 23, 2019 Admission HPI Per Admitting Provider 43 y/o F c/o hyperglycemia. Pt states she saw her PCP on Monday for a cough and some mild SOB. She was dx with bronchitis and given a script for prednisone. She did not peanut picker the prednisone until night. Her first dose was on Monday. She was seen in the ED on Monday for n/v and her BS was 400. Pt has gastroparesis and has been having worsening n/v over the last 3-4 days. Some meals she can tolerate, some she could not during this time. The last meal she was able to tolerate was last night when she had steak, potatoes, and broccoli at [facility]. She states that she only ate about half of the meal and she was keeping it down initially, but then threw up half of what she had eaten. Pt was given insulin for her elevated BS in the ED. She was given crackers and then had several episodes of n/v. She did not feel that she could go home with the ongoing n/v with the elevated BS. She was given reglan in the ED, which is a new medication for her. She does feel that it helped somewhat. Pt's dx of gastroparesis is relatively new. She states that sometimes she has instant emesis but sometimes her food passes right through her and she has whole pieces of food in her stool. Pt gets chest pain with her gastroparesis, but no new chest pain. She has SOB with emesis at times. She does feel that the prednisone has helped her cough/SOB overall. Pt denies fever, abd pain, c/d, LE pain. She does get LE swelling at times. Principal Diagnosis Pt feels back to her usual. She has had some very slight/mild nausea but has been tolerating PO otherwise. No emesis. She has not had a bowel movement since she arrived, which she states happens at times due to her gastroparesis. Pt denies fever, SOB, chest pain, abd pain, LE pain or swelling. Decreased ambien to 5mg last HS and pt states she slept well at that dose. She saw no signs of sleep walking last night. Discharge Exam Constitutional WD/WN, vitals as above Eyes normal visual chatman by confrontation and + anicteric sclerae Neck normal visual inspection and trachea midline Respiratory normal respiratory effort, lungs clear to auscultation Cardiovascular Rate/Rhythm: regular rate and regular rhythm Gastrointestinal (Abdomen) Inspection/Auscultation: abdomen not distended Percussion/Palpation: abdomen soft; abdomen nontender Musculoskeletal Head/Neck/Chest: normocephalic and head atraumatic Skin no rashes, warm and dry Neurologic awake; not confused Speech / Cognition: normal speech Psychiatric A+Ox3, euthymic affect Discharge Data Allergies Allergy/AdvReac Type Severity Reaction Status Date / Time bee venom protein (honey bee) Allergy Intermediate LARGE Verified 04/21/19 11:22 SWELLING/RED/WELT. TURNS INTO BRUISING morphine Allergy Intermediate LOCALIZED Verified 04/21/19 11:22 REACTION: RED/WELTS pollen extracts Allergy Intermediate ITCHY Verified 04/21/19 11:22 EYES/SCRATCHY THROAT. SWOLLEN EYES adhesive Allergy Unknown VERY RED Verified 04/21/19 11:22 SKIN AND ITCHY citalopram Allergy Unknown JAW PAIN Verified 04/21/19 11:22 AND HEADACHES Consultations 04/21/19 14:31 ED Decision to Admit Stat 04/21/19 16:49 Consult Case Management - Discharge Planning Routine Hospital Course (1) Hyperglycemia due to type 2 diabetes mellitus: Likely related to recent prednisone use, will hold for now given short course of steroids and no further SOB BS improving Increased BHA on admission A1c 8.0 DM educator met with pt (2) Diabetes mellitus with gastroparesis: Likely worsened gastroparesis in the setting of elevated BS Tolerated advance in diet Reglan PRN PRP WNL Resume home insulin regimen (3) Hypertension: continue home meds (4) Anxiety: continue home meds (5) Asthma, moderate persistent: continue home meds States predisone was helping her bronchitis and no sx for several days Will hold further use (6) Depression: continue home meds (7) Hyperlipidemia: continue home meds (8) Hypothyroidism: continue home meds (9) Insomnia: Pt having sleep walking that leads to sleep eating over the last few months Has been on ambien 10mg x1 yr, slept well overnight with decrease to 5mg Hopefully the lower dose will continue to be effective for sleep but without the sleep walking effect (10) Laryngopharyngeal reflux: continue home meds (11) Obstructive sleep apnea: States she was told her CPAP was not effective for her and to stop use (12) Bipolar disorder, unspecified: continue home meds (13) TIA (transient ischemic attack): Aspirin 81mg, continue (14) DVT prophylaxis: SCDs, ambulation Total Time Total Time Spent Total Time Spent (In Minutes): >30 Discharge Plan Discharge Items Patient Disposition: Home - Self-Care Reason For Visit: HYPERGLYCEMIA Discharge Diagnosis: Hyperglycemia Condition: Good Discharge Goals: Decrease discomfort, Improve disease control, Improve function and Improve nutritional status Activity: Resume your previous activity Non-emergency contact: Primary Care Provider Call non-emergency contact if: you have any medication questions and your sympt oms worsen Follow-up/Referrals: Lilibeth Sharma MD [Primary Care Provider] - 04/29/19 10:15 am (Please, follow up with Dr. Sharma on MondayApril 29 at 10:15 am. *If you need to change this appointment, call the office at [phone].) Diet: Carb Consistent or DM2 Addtl Provider Instructions: I think that your Ambien is causing your sleep walking and sleep eating episodes. You should decrease your dose from 10mg to 5mg. This may still help with your sleep but not cause those side effects I am going to start you on Reglan for your gastroparesis. You should also be sure to chew your food 10-15 times per bite and eat small meals to help with your gastroparesis. Follow up with endocrine as scheduled this week Follow up with your PCP in the next 1-2 weeks Prescriptions: New metoclopramide HCl 5 mg Tablet 5 mg PO Q6 PRN (Reason: Abdominal Discomfort) 30 Days Qty: 60 RF: 0 zolpidem 5 mg Tablet 5 mg PO HS 30 Days Qty: 30 RF: 0 Continued pantoprazole 40 mg tablet,delayed release (DR/EC) 40 mg PO DAILY Qty: 90 RF: 3 atorvastatin 20 mg tablet 20 mg PO HS 90 Days Qty: 90 RF: 2 lisinopril 10 mg tablet 10 mg PO HS 90 Days Qty: 90 RF: 1 aspirin 81 mg tablet,delayed release (DR/EC) 81 mg PO DAILY RF: 0 fluticasone propion-salmeterol [Advair Diskus] 250-50 mcg/dose blister with device 1 inh INHALATION BID 90 Days Qty: 60 RF: 3 polyethylene glycol 3350 [Miralax] 17 gram/dose powder 17 g PO HS PRN (Reason: Constipation) 90 Days Qty: 527 RF: 1 ranitidine HCl 300 mg tablet 300 mg PO HS 90 Days Qty: 90 RF: 1 loratadine 10 mg tablet 10 mg PO HS 90 Days Qty: 90 RF: 3 fluticasone propionate [Flonase Allergy Relief] 50 mcg/actuation spray,suspension 2 spray INTRANASAL DAILY PRN (Reason: Allergy Symptoms) 90 Days Qty: 47.4 RF: 3 levothyroxine 75 mcg tablet 75 mcg PO HS 90 Days Qty: 90 RF: 1 metformin 1,000 mg tablet 2,000 mg PO HS 90 Days Qty: 180 RF: 1 albuterol sulfate [Proventil HFA] 90 mcg/actuation HFA aerosol inhaler 2 puff INHALATION Q6H PRN (Reason: ASTHMA SYMPTOMS) 90 Days Qty: 6.7 RF: 1 Motegrity 2 mg tablet 2 mg PO DAILY Qty: 30 RF: 2 azelastine 137 mcg (0.1 %) aerosol,spray 1 sprays INTNAS BID Qty: 30 RF: 2 Novolog Flexpen U-100 Insulin 100 unit/mL (3 mL) insulin pen See Rx Instructions .ROUTE .COMPLEX Qty: 15 RF: 2 diphenoxylate-atropine 2.5-0.025 mg/5 mL liquid 10 ml PO BID PRN (Reason: diarrhea) Qty: 60 RF: 0 meclizine 25 mg tablet 25 mg PO TID PRN (Reason: dizziness) Qty: 90 RF: 0 ipratropium-albuterol 0.5 mg-3 mg(2.5 mg base)/3 mL Solution For Nebulization 3 ml INHALATION Q4H PRN (Reason: Shortness Of Breath) RF: 0 lorazepam 0.5 mg Tablet 0.5 mg PO HS PRN (Reason: Anxiety) RF: 0 diphenhydramine HCl [Benadryl Allergy] 25 mg Tablet 25 mg PO HS RF: 0 docusate sodium 100 mg Capsule 100 mg PO BID RF: 0 gabapentin 300 mg Capsule 900 mg PO HS RF: 0 ondansetron 4 mg Tablet,Disintegrating 4 mg PO Q6H PRN (Reason: Nausea) RF: 0 olanzapine 20 mg Tablet 20 mg PO HS RF: 0 aripiprazole [Abilify] 10 mg Tablet 10 mg PO HS RF: 0 metoclopramide HCl 5 mg tablet 5 mg PO BID Qty: 10 RF: 0 dicyclomine 10 mg capsule 10 mg PO TID PRN (Reason: abdominal discomfort) Qty: 20 RF: 0 bupropion HCl [Wellbutrin SR] 100 mg tablet sustained-release 12 hr 100 mg PO QAM RF: 0 cholestyramine (with sugar) 4 gram powder 4 gm PO BID RF: 0 Multi For Her 18 mg iron-600 mcg-40 mcg Capsule 1 tab-cap PO HS RF: 0 promethazine 25 mg tablet 25 mg PO Q6H PRN (Reason: nausea and vomiting) Qty: 20 RF: 0 ibuprofen 200 mg Tablet 200 mg PO Q6H PRN (Reason: Pain) RF: 0 sucralfate 1 gram tablet 1 gm PO BID PRN (Reason: Acid Reflux) RF: 0 amitriptyline 50 mg tablet 50 mg PO HS RF: 0 epinephrine [EpiPen] 0.3 mg/0.3 mL auto-injector 0.3 mg IM Q10M PRN (Reason: Allergic Reaction) RF: 0 Toujeo SoloStar U-300 Insulin 300 unit/mL (1.5 mL) insulin pen 65 units SQ QPM RF: 0 Mobility 1 tab PO DAILY PRN (Reason: Constipation) RF: 0 magnesium oxide 500 mg capsule 500 mg PO BID Qty: 14 RF: 0 Discontinued zolpidem [Ambien] 10 mg Tablet 10 mg PO HS RF: 0 prednisone 10 mg tablet 10 mg PO UD RF: 0 Stand-Alone Forms: [facility] [employer] [facility]/Other Patient Handouts: Gastroparesis, Diabetes Senior Care Complications, Diabetes Type 2 Coping, Diabetes Healthy Meals, Diabetes Carbs, Diabetes Exercise Benefits, Diabetes Exercise Get Started, Diabetes Activity Tips, Diabetes Manage A1C Test Discharge Orders: Discharge Order (Routine); Ordered 04/23/19 Ordered By: Iliana Zamudio Admission Data Admit Date/Time: 04/21/19 15:27 Attending Provider: Iliana Zamudio Admit Provider: Iliana Zamudio Primary Care Provider: Lilibeth Sharma Other Providers: Iliana Zamudio Service: Telemetry Medical Other Interventions: Discharge Summary Assessment (RN) Last Done: 04/23/19 10:24 Pending Studies at Discharge: No DC Date/Time DO NOT enter until pt leaves facility: 04/23/19 11:15
[2019-04-23] MEDS: CHOLESTYRAMINE LIGHT 4 GM PKT PO SCH (10:50)
== END 2019-04-23 11:15 | disposition home or self-care (01) | DRG 638 ==
LOC: ED 10:57 → 2N 15:27

== ENCOUNTER 2021-01-31 21:27 | Observation (INO) ==
[2021-01-31] MEDS ORDERED: ONDANSETRON INJ 2 MG/ML 2 ML VIAL IV STA (21:57)
[2021-01-31] MEDS ORDERED: SODIUM CHLORIDE 0.9% 1000ML 1,000 ML IV ONE (21:57)
--- NOTE | 2021-01-31 22:13 | Emergency Department Note ---
History of Present Illness General Chief complaint: Hypoglycemia Stated complaint: LOW SUGAR LEVELS Time Seen by Provider: 01/31/21 21:45 History of Present Illness Maximum Pain Intensity: 5 This 45-year-old with type 2 diabetes on insulin and metformin presents to the ER complaining of low blood sugar Location: Generalized Quality: Weak and shaky Severity: Moderate Duration: 2 days Timing: Started 2 days ago Context: Patient's doctor told her to go to the ER Modifying factors: better with drinking; worse with nothing Patient states she has been feeling nauseated and having some loose stool. She states she cannot keep her blood sugar up. She is on insulin and Metformin. No other diabetic medications. Her doctor today told her to decrease her insulin but she had already taken her 24-hour acting this morning. Patient states her blood sugars have been in the 50s. She drink something sweet and sugar goes up but then drops back down. Patient denies chest pain, dyspnea, fevers, flulike illness. No recent antibiotics. She has received the Covid vaccine. Home Medications Medication Instructions Recorded Confirmed Type meclizine 25 mg PO TID PRN 11/30/19 01/31/21 History ipratropium-albuterol 3 ml INH Q8H PRN 01/10/20 01/31/21 History atorvastatin 20 mg tablet 20 mg PO HS #90 tab 02/18/20 01/31/21 Rx Flovent HFA 2 puffs INH BID 04/21/20 01/31/21 History insulin glargine U-300 conc 110 unit SUBCUT HS 04/21/20 01/31/21 History [Toujeo Max U-300 SoloStar] gabapentin 400 mg capsule 400 mg PO TID cap 05/04/20 01/31/21 History ketorolac 10 mg tablet 10 mg PO Q8H PRN #10 tab 07/13/20 01/31/21 Rx sennosides-docusate sodium 1 - 2 tab-cap PO BID PRN #60 tab 07/20/20 01/31/21 Rx [Senokot-S] ondansetron 4 mg disintegrating 4 mg PO TID PRN #30 tab 08/12/20 01/31/21 Rx tablet rimegepant 75 mg disintegrating 75 mg PO DAILY PRN #8 tab 08/12/20 01/31/21 Rx tablet aspirin [Aspir-Low] 81 mg PO HS 08/31/20 01/31/21 History naproxen 500 mg tablet 500 mg PO DAILY PRN #30 tab 10/05/20 01/31/21 Rx polyethylene glycol 3350 17 8.5 g PO DAILY PRN #238 g 10/08/20 01/31/21 Rx gram/dose oral powder lisinopril 10 mg tablet 10 mg PO HS #90 tab 10/12/20 01/31/21 Rx albuterol sulfate 90 mcg/actuation 2 inh INH Q6H PRN #8.5 g 10/23/20 01/31/21 Rx aerosol inhaler naproxen sodium 550 mg tablet 550 mg PO Q12H 14 Days #28 tab 10/23/20 01/31/21 Rx bupropion HCl 100 mg PO HS 11/12/20 01/31/21 History mirtazapine 30 mg PO HS 11/12/20 01/31/21 History azelastine 2 spray INTRANASAL DAILY PRN 11/13/20 01/31/21 History benralizumab 30 mg/mL subcutaneous See Rx Instructions SUBCUT 11/13/20 01/31/21 Rx syringe .COMPLEX #1 ml sucralfate 1 g PO ACHS 11/13/20 01/31/21 History cyclobenzaprine 10 mg tablet 10 mg PO HS #20 tab 11/17/20 01/31/21 Rx insulin regular human 100 unit/mL 35 unit SUBCUT WM ml 11/24/20 01/31/21 History (3 mL) subcutaneous pen methocarbamol 500 mg PO Q8 11/30/20 01/31/21 History dicyclomine 10 mg capsule 10 mg PO TID PRN #90 cap 12/09/20 01/31/21 Rx cholecalciferol (vitamin D3) 100 mcg PO HS 01/26/21 01/31/21 History [Vitamin D3] metformin [Glucophage XR] 1,000 mg PO BID 01/26/21 01/31/21 History pantoprazole [Protonix] 40 mg PO HS 01/26/21 01/31/21 History triamcinolone acetonide 1 applic TOPICAL HS 01/26/21 01/31/21 History budesonide-formoterol HFA 160 2 inh INHALATION BID #1 inhaler 01/27/21 01/31/21 Rx mcg-4.5 mcg/actuation aerosol inhaler epinephrine 0.3 mg/0.3 mL 0.3 mg IM DIRECTED PRN #1 ea 01/27/21 01/31/21 Rx injection, auto-injector levothyroxine 75 mcg tablet 75 mcg PO HS #90 tab 01/27/21 01/31/21 Rx tiotropium bromide 1.25 2 puff INHALATION QAM #4 g 01/27/21 01/31/21 Rx mcg/actuation mist for inhalation Allergies Allergy/AdvReac Type Severity Reaction Status Date / Time adhesive Allergy Intermediate skin Verified 01/31/21 21:56 redness, itchy bee venom protein (honey bee) Allergy Intermediate red Verified 01/31/21 21:56 welts/swelling > bruising citalopram Allergy Intermediate jaw pain, Verified 01/31/21 21:56 headaches morphine Allergy Intermediate localized Verified 01/31/21 21:56 reaction, redness/welts pollen extracts AdvReac Intermediate itchy Verified 01/31/21 21:56 eyes, scratchy throat, swollen eyes Past Med/Surg History Medical History Allergy or toxic reaction to venom Anxiety Asthma LAST USED RESCUE INHALER>1 WEEK AGO Bipolar disorder Celiac disease Chronic diarrhea 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 hearing of left ear Depression Diabetic peripheral neuropathy associated with type 2 diabetes mellitus Dysesthesia Fatty infiltration of liver Gastritis Gastro-esophageal reflux disease without esophagitis Gastroparesis Hiatal hernia Hip problem GROWTH ON LEFT HIP (PLANS TO HAVE SURGERY TO GET REMOVED) History of kidney stones Hx of endometriosis Hx of irritable bowel syndrome Hyperlipidemia Hypertension Hypothyroidism Insomnia Loss of protective sensation of skin of foot Migraines Morbid obesity Obstructive sleep apnea non-compliant with cpap, could not tolerate Post traumatic stress disorder Sciatica TIA (transient ischemic attack) ? DATE "MANY YEARS AGO" Surgical History H/O: hysterectomy History of anesthesia reaction SLOW TO WAKE UP History of arthroscopy of right shoulder History of bladder surgery suburethral sling with hysterectomy in 2009 History of cholecystectomy History of knee surgery RIGHT History of myringotomy bilateral tubes (multiple), Right [place]ring[place] tube: [place] [facility] [place] 118[place] History of tonsillectomy History of tooth extraction History of tubal ligation Family History Father Myocardial infarction Prostate cancer Diabetes Hypertension Mother , 2008 Myocardial infarction Dementia Diabetes Hypertension Other No significant family history Denies family history of Ovarian cancer Crohn's disease Breast cancer Colorectal cancer Ulcerative colitis Social History Smoking Status: Never smoker Second Hand Exposure: Yes (CURRENT); Hx Alcohol Use: No Preferred Language: Cymro Communication Ability: Effective Visual Impairment: No Limitations Hearing Ability: Normal Rn Diabetes Educator Required: No Beliefs That Will Affect Care: None marital status: Current Living Situation: Family Current Living Situation Comment: 3 oldest kids are adopted, youngest is with his dad. 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 Feels Safe at Home: Yes Childhood Exposure to Second-Hand Smoke: Yes Dental Care, Regularly: Yes Physical Activity Frequency: Does not Exercise Seatbelt Use: always Sunscreen Use: Yes Assistive Devices: Glasses and Walker Review of Systems A total of 10 systems reviewed and were otherwise negative Physical Exam Vital Signs Vital Signs - 24 hr 01/31/21 21:30 01/31/21 21:50 01/31/21 21:53 Temperature 35.9 C L Temperature Source Temporal Artery Scan Pulse Rate 102 H 105 H 106 H Pulse Rate [Apical] 103 H Pulse Rate from SpO2 Sensor 106 H 106 H Pulse Rhythm [Apical] Regular Pulse Strength [Apical] Normal Respiratory Rate 18 24 17 Respiratory Effort / Characteristics Non-Labored Spontaneous Respiratory Depth Normal Blood Pressure 174/65 H 167/91 H Blood Pressure [Right Arm] 167/31 H Blood Pressure Mean 101 116 Blood Pressure Mean [Right Arm] 76 Blood Pressure Position [Right Arm] Semi-fowlers Pulse Oximetry 96 94 94 Oxygen Delivery Method Room Air Room Air Sepsis Recent Fever Within 48 Hours No Sepsis New/Unexplained Change in Mental Status No Sepsis Action Taken by Nursing No Action Required 01/31/21 22:00 01/31/21 22:30 01/31/21 22:31 Temperature Temperature Source Pulse Rate 100 H 94 H 95 H Pulse Rate [Apical] Pulse Rate from SpO2 Sensor 101 H Pulse Rhythm [Apical] Pulse Strength [Apical] Respiratory Rate 16 19 23 Respiratory Effort / Characteristics Respiratory Depth Blood Pressure 166/90 H Blood Pressure [Right Arm] Blood Pressure Mean 115 Blood Pressure Mean [Right Arm] Blood Pressure Position [Right Arm] Pulse Oximetry 94 Oxygen Delivery Method Sepsis Recent Fever Within 48 Hours Sepsis New/Unexplained Change in Mental Status Sepsis Action Taken by Nursing 01/31/21 23:30 Temperature Temperature Source Pulse Rate Pulse Rate [Apical] 98 H Pulse Rate from SpO2 Sensor Pulse Rhythm [Apical] Pulse Strength [Apical] Respiratory Rate 18 Respiratory Effort / Characteristics Respiratory Depth Blood Pressure Blood Pressure [Right Arm] 154/79 H Blood Pressure Mean Blood Pressure Mean [Right Arm] 104 Blood Pressure Position [Right Arm] Lying Pulse Oximetry 94 Oxygen Delivery Method Room Air Sepsis Recent Fever Within 48 Hours Sepsis New/Unexplained Change in Mental Status Sepsis Action Taken by Nursing VITALS: Vitals are noted on the nurse's note and reviewed by myself. Vital signs stable. GENERAL: Pleasant female talkative, in no acute distress, nondiaphoretic, well- developed well-nourished. SKIN: The skin was without rashes, erythema, edema, or bruising. There is no tenting of the skin. Capillary reflex less than 2 seconds. HEAD: Normocephalic atraumatic. EARS: External auditory canals clear, tympanic membranes pearly santizo without erythema or effusion bilaterally. EYES: Pupils equal round and reactive to light and accommodation. Conjunctivae without injection, sclerae without icterus. Extraocular movements intact. NOSE: Patent, turbinates without inflammation or discharge. MOUTH: Mucous membranes moist. Pharynx without erythema or exudate. Uvula midline. Airway patent. Tongue does not deviate. NECK: Supple without nuchal rigidity. No lymphadenopathy. No thyromegaly. Cervical spine is nontender. No JVD. HEART: Regular rate and rhythm LUNGS: Clear to auscultation bilaterally without wheezes, rales or rhonchi. No retractions or accessory muscle use. ABDOMEN: Positive bowel sounds x 4. Normal tympanic percussion. Soft, nontender, without masses or organomegaly. Veronica sign negative. No guarding or rebound tenderness. No CVA tenderness MUSCULOSKELETAL: No muscle atrophy, erythema, or edema noted. NEURO: Patient was alert and oriented to person place and time. Normal sensation to light and sharp touch. No focal neurological deficits. Course Administered Medications Discontinued Medications Ceftriaxone Sodium (Rocephin) 2,000 mg in 70 mls @ 140 mls/hr IV NOW STA Stop: 01/31/21 23:17 Last Infusion: 02/01/21 00:10 Dose: 0 mls/hr Documented by: [id number] Admin: 01/31/21 23:30 Dose: 140 mls/hr Documented by: [id number] Ondansetron HCl (Ondansetron Inj 2 Mg/Ml 2 Ml Vial) 4 mg IV NOW STA Stop: 01/31/21 21:58 Last Admin: 01/31/21 22:38 Dose: 4 mg Documented by: [id number] Medical Decision Making Medical Records Attestation: I reviewed the patient's medical records. Home Medications Current Medication List: was personally reviewed by me Laboratory Data Attestation: I reviewed the patient's lab results. Result diagrams: 01/31/21 22:20 01/31/21 22:20 Lab Results 01/31/21 01/31/21 01/31/21 Range/Units 21:32 22:20 22:20 WBC 10.08 (4.8-10.8) K/uL RBC 5.05 (4.2-5.4) M/uL Hgb 14.5 (12.0-16.0) g/dL Hct 42.5 (37-47) % MCV 84.2 (80-100) fL MCH 28.7 (25-34) pg MCHC 34.1 (32-36) g/dL RDW Std Deviation 39.9 (36.4-46.3) fL RDW Coeff of Weston 13.3 (11.5-14.5) % Plt Count 302 (130-400) K/uL MPV 9.4 (7.4-10.4) fL Immature Gran % (Auto) 0.2 % Neut % (Auto) 71.4 % Lymph % (Auto) 21.9 % [place] % (Auto) 6.4 % Eos % (Auto) 0.0 % Baso % (Auto) 0.1 % Neut # (Auto) 7.19 H (1.4-6.5) K/uL Lymph # (Auto) 2.21 (1.2-3.4) K/uL [place] # (Auto) 0.65 H (0.11-0.59) K/uL Eos # (Auto) 0.00 (0-0.5) K/uL Baso # (Auto) 0.01 (0-0.2) K/uL Immature Gran # (Auto) 0.02 (0.00-0.02) K/uL Sodium 139 (136-145) mmol/L Potassium 3.6 (3.5-5.1) mmol/L Chloride 104 (98-107) mmol/L Carbon Dioxide 27 (21-32) mmol/L Anion Gap 8.0 (3-11) BUN 10 (7-18) mg/dl Creatinine 0.64 (0.6-1.2) mg/dl Est Cr Clr Drug Dosing 139.0 ml/min Est GFR ( Amer) 123.2 ml/min Est GFR (Non-Af Amer) 106.3 ml/min BUN/Creatinine Ratio 15.0 (10-20) Glucose 113 H (70-99) mg/dl POC Glucose 144 H (70-99) mg/dl Calcium 9.1 (8.5-10.1) mg/dl Magnesium 1.8 (1.8-2.4) mg/dl Total Bilirubin 0.3 (0.2-1) mg/dl AST 60 H (15-37) U/L ALT 55 (12-78) U/L Alkaline Phosphatase 95 (45-117) U/L Troponin I < 0.015 (0-0.045) ng/ml Total Protein 7.8 (6.4-8.2) gm/dl Albumin 3.4 (3.4-5.0) gm/dl Globulin 4.4 H (2.5-4.0) gm/dl Albumin/Globulin Ratio 0.8 L (0.9-2) TSH 0.953 (0.300-4.500) uIu/ml Urine Color Urine Appearance (Clear) Urine pH (4.5-7.5) Ur Specific [place] (1.000-1.030) Urine Protein (Negative) Urine Glucose (UA) (Negative) Urine Ketones (Negative) Urine Blood (Negative) Urine Nitrite (Negative) Urine Bilirubin (Negative) Urine Urobilinogen (Negative) Ur Leukocyte Esterase (Negative) Urine Test (Negative) COVID-19 Eval Order SARS-CoV-2 (PCR) (Negative) 01/31/21 01/31/21 01/31/21 Range/Units 22:20 22:20 22:28 WBC (4.8-10.8) K/uL RBC (4.2-5.4) M/uL Hgb (12.0-16.0) g/dL Hct (37-47) % MCV (80-100) fL MCH (25-34) pg MCHC (32-36) g/dL RDW Std Deviation (36.4-46.3) fL RDW Coeff of Weston (11.5-14.5) % Plt Count (130-400) K/uL MPV (7.4-10.4) fL Immature Gran % (Auto) % Neut % (Auto) % Lymph % (Auto) % [place] % (Auto) % Eos % (Auto) % Baso % (Auto) % Neut # (Auto) (1.4-6.5) K/uL Lymph # (Auto) (1.2-3.4) K/uL [place] # (Auto) (0.11-0.59) K/uL Eos # (Auto) (0-0.5) K/uL Baso # (Auto) (0-0.2) K/uL Immature Gran # (Auto) (0.00-0.02) K/uL Sodium (136-145) mmol/L Potassium (3.5-5.1) mmol/L Chloride (98-107) mmol/L Carbon Dioxide (21-32) mmol/L Anion Gap (3-11) BUN (7-18) mg/dl Creatinine (0.6-1.2) mg/dl Est Cr Clr Drug Dosing ml/min Est GFR ( Amer) ml/min Est GFR (Non-Af Amer) ml/min BUN/Creatinine Ratio (10-20) Glucose (70-99) mg/dl POC Glucose 109 H (70-99) mg/dl Calcium (8.5-10.1) mg/dl Magnesium (1.8-2.4) mg/dl Total Bilirubin (0.2-1) mg/dl AST (15-37) U/L ALT (12-78) U/L Alkaline Phosphatase (45-117) U/L Troponin I (0-0.045) ng/ml Total Protein (6.4-8.2) gm/dl Albumin (3.4-5.0) gm/dl Globulin (2.5-4.0) gm/dl Albumin/Globulin Ratio (0.9-2) TSH (0.300-4.500) uIu/ml Urine Color Yellow Urine Appearance Clear (Clear) Urine pH 5.0 (4.5-7.5) Ur Specific Mascot 1.028 (1.000-1.030) Urine Protein Negative (Negative) Urine Glucose (UA) Negative (Negative) Urine Ketones Negative (Negative) Urine Blood Negative (Negative) Urine Nitrite Negative (Negative) Urine Bilirubin Negative (Negative) Urine Urobilinogen Negative (Negative) Ur Leukocyte Esterase Negative (Negative) Urine Test Negative (Negative) COVID-19 Eval Order SARS-CoV-2 (PCR) (Negative) 01/31/21 01/31/21 Range/Units 22:49 22:49 WBC (4.8-10.8) K/uL RBC (4.2-5.4) M/uL Hgb (12.0-16.0) g/dL Hct (37-47) % MCV (80-100) fL MCH (25-34) pg MCHC (32-36) g/dL RDW Std Deviation (36.4-46.3) fL RDW Coeff of Weston (11.5-14.5) % Plt Count (130-400) K/uL MPV (7.4-10.4) fL Immature Gran % (Auto) % Neut % (Auto) % Lymph % (Auto) % [place] % (Auto) % Eos % (Auto) % Baso % (Auto) % Neut # (Auto) (1.4-6.5) K/uL Lymph # (Auto) (1.2-3.4) K/uL [place] # (Auto) (0.11-0.59) K/uL Eos # (Auto) (0-0.5) K/uL Baso # (Auto) (0-0.2) K/uL Immature Gran # (Auto) (0.00-0.02) K/uL Sodium (136-145) mmol/L Potassium (3.5-5.1) mmol/L Chloride (98-107) mmol/L Carbon Dioxide (21-32) mmol/L Anion Gap (3-11) BUN (7-18) mg/dl Creatinine (0.6-1.2) mg/dl Est Cr Clr Drug Dosing ml/min Est GFR ( Amer) ml/min Est GFR (Non-Af Amer) ml/min BUN/Creatinine Ratio (10-20) Glucose (70-99) mg/dl POC Glucose (70-99) mg/dl Calcium (8.5-10.1) mg/dl Magnesium (1.8-2.4) mg/dl Total Bilirubin (0.2-1) mg/dl AST (15-37) U/L ALT (12-78) U/L Alkaline Phosphatase (45-117) U/L Troponin I (0-0.045) ng/ml Total Protein (6.4-8.2) gm/dl Albumin (3.4-5.0) gm/dl Globulin (2.5-4.0) gm/dl Albumin/Globulin Ratio (0.9-2) TSH (0.300-4.500) uIu/ml Urine Color Urine Appearance (Clear) Urine pH (4.5-7.5) Ur Specific M[place] (1.000-1.030) Urine Protein (Negative) Urine Glucose (UA) (Negative) Urine Ketones (Negative) Urine Blood (Negative) Urine Nitrite (Negative) Urine Bilirubin (Negative) Urine Urobilinogen (Negative) Ur Leukocyte Esterase (Negative) Urine Test (Negative) COVID-19 Eval Order Covid19 at [facility] SARS-CoV-2 (PCR) NEGATIVE (Negative) Imaging Data Attestation: I personally reviewed and interpreted this imaging study as follows: Radiologist's Impression: Chest X-Ray 01/31/21 21:57 SINGLE VIEW CHEST CLINICAL HISTORY: Generalized weakness. FINDINGS: An AP, portable, upright chest radiograph is compared to study dated 11/30/2020. Correlation is made with chest CT dated 04/14/2016. The heart is top normal for projection. The mediastinal contour is within normal limits. Airspace opacities are seen at the left lung base. The right lung is clear. No large pleural effusion or pneumothorax is seen. The bony thorax is grossly intact. IMPRESSION: Airspace opacities at the left lung base could represent atelectasis versus an infectious/inflammatory pneumonitis. Clinical correlation will be required. ACT 112: Negative or not required by law. Electronically signed by: Selvin Wang M.D. 01/31/2021 10:15 PM MDM Narrative Prior records/ancillary studies reviewed and summarized above. Nursing notes reviewed. Additional history obtained from nursing. The patient's history was concerning for problems with the blood sugar. Differential diagnosis: Etiologies such as metabolic, infection, hypo/hyperglycemia, electrolyte abnormalities, cardiac sources, intracerebral event, toxicologic, neurologic, as well as others were entertained. Physical examination: As above. ER treatment provided: IV Lock An order was placed for continuous cardiac monitoring. The monitor shows a rate of 60-1 20 with a sinus rhythm. IV fluids, Zofran On reassessment the patient felt better. Diagnostics interpretation by me: ECG: Ordered for weakness EKG: Normal sinus, normal intervals, no acute ST-T wave changes. Left axis deviation unchanged, impression normal sinus rhythm with a left axis deviation interpreted by myself I think arrhythmia is unlikely. EKG shows normal sinus rhythm with no interval abnormalities such as QT prolongation or WPW. There are no findings to suggest Brugada syndrome. Cardiac monitoring in the emergency department reveals no tachycardic or bradycardic dysrhythmia. Hypertrophic cardiomyopathy was considered but there are no clear historical elements pointing toward this. EKG is not suggestive. The QRS voltage is not extremely large and there are no suggestive Q waves. The labs revealed no worrisome leukocytosis. Negative Covid. Mild hyperglycemia Negative urine Imaging studies: SINGLE VIEW CHEST CLINICAL HISTORY: Generalized weakness. FINDINGS: An AP, portable, upright chest radiograph is compared to study dated 11/30/2020. Correlation is made with chest CT dated 04/14/2016. The heart is top normal for projection. The mediastinal contour is within normal limits. Airspace opacities are seen at the left lung base. The right lung is clear. No large pleural effusion or pneumothorax is seen. The bony thorax is grossly intact. IMPRESSION: Airspace opacities at the left lung base could represent atelectasis versus an infectious/inflammatory pneumonitis. Clinical correlation will be required. ACT 112: Negative or not required by law. Electronically signed by: Selvin Wang M.D. 01/31/2021 10:15 PM Dictated: 01/31/212211 Transcribed: 01/31/212211 Consultation: A consultation was placed with the hospitalist. The case was discussed and diagnostics were reviewed. The patient was evaluated in the ER for further treatment. Exam and history seem consistent with problems with her blood sugar. Patient states at night her blood sugar will drop. She took her normal dose of insulin today. Her family doctor sent her in for admission. Medicine was consulted. She will be evaluated for possible admission. Chest x-ray with possible pneumonia so patient was given antibiotics. Patient was not coughing though. This could be just atelectasis. By the evaluation outlined above emergent etiologies such as electrolyte abnormalities, cardiac sources, intracerebral event, toxologic, neurologic, metabolic, as well as others were deemed relatively unlikely. The pt informed about the findings as listed above. All questions were answered and pleased with the treatment. The chart was completed utilizing [employer] Speech voice recognition software. Grammatical errors, random word insertions, pronoun errors, and incomplete sentences are an occassional consequence of this system due to software limitations, ambient noise, and hardware issues. Any formal questions or concerns about the content, text, or information contained within the body of this dictation should be directly addressed to the physician chef's assistant for clarification. Impression & Plan Type 2 diabetes mellitus with insulin therapy, Nausea, Diarrhea Discharge Plan Visit Data Chief Complaint: Hypoglycemia Stated Complaint: LOW SUGAR LEVELS ED Provider: Robb Daniel ED Midlevel Provider: Nichole Ball Discharge Problem: Type 2 diabetes mellitus with insulin therapy, Nausea, Diarrhea Patient Disposition: Admitted As Inpatient Condition: Good Forms Stand Alone Forms: My [employer] Prescriptions Prescriptions: No Action atorvastatin [Lipitor] 20 mg tablet 20 mg PO HS Qty: 90 RF: 3 naproxen 500 mg tablet 500 mg PO DAILY PRN (Reason: before activity to prevent headache) Qty: 30 RF: 1 lisinopril [Zestril] 10 mg tablet 10 mg PO HS Qty: 90 RF: 1 cyclobenzaprine 10 mg tablet 10 mg PO HS Qty: 20 RF: 0 levothyroxine [Synthroid] 75 mcg tablet 75 mcg PO HS Qty: 90 RF: 1 ketorolac 10 mg tablet 10 mg PO Q8H PRN (Reason: pain) Qty: 10 RF: 0 dicyclomine 10 mg capsule 10 mg PO TID PRN (Reason: IBS) Qty: 90 RF: 2 budesonide-formoterol [Symbicort] 160-4.5 mcg/actuation HFA aerosol inhaler 2 inh inhalation BID Qty: 1 RF: 6 epinephrine [EpiPen] 0.3 mg/0.3 mL auto-injector 0.3 mg IM DIRECTED PRN (Reason: Allergic Reaction) Qty: 1 RF: 3 Spiriva Respimat 1.25 mcg/actuation mist 2 puff inhalation QAM Qty: 4 RF: 11 Fasenra 30 mg/mL syringe See Rx Instructions subcut .COMPLEX Qty: 1 RF: 0 gabapentin 400 mg capsule 400 mg PO TID RF: 0 polyethylene glycol 3350 [Miralax] 17 gram/dose powder 8.5 g PO DAILY PRN (Reason: constipation) Qty: 238 RF: 5 albuterol sulfate 90 mcg/actuation HFA aerosol inhaler 2 inh INH Q6H PRN (Reason: Shortness Of Breath Or Wheezing) Qty: 8.5 RF: 2 naproxen sodium 550 mg tablet 550 mg PO Q12H 14 Days Qty: 28 RF: 0 ondansetron 4 mg tablet,disintegrating 4 mg PO TID PRN (Reason: nausea and vomiting) Qty: 30 RF: 1 Nurtec ODT 75 mg tablet,disintegrating 75 mg PO DAILY PRN (Reason: migraine headache) Qty: 8 RF: 5 ipratropium-albuterol 0.5 mg-3 mg(2.5 mg base)/3 mL solution for nebulization 3 ml INH Q8H PRN (Reason: Wheezing) RF: 0 sennosides-docusate sodium [Senokot-S] 8.6-50 mg tablet 1 - 2 tab-cap PO BID PRN (Reason: constipation) Qty: 60 RF: 2 aspirin [Aspir-Low] 81 mg Tablet,Delayed Release (Dr/Ec) 81 mg PO HS RF: 0 meclizine 25 mg tablet 25 mg PO TID PRN (Reason: Dizziness) RF: 0 Toujeo Max U-300 SoloStar 300 unit/mL (3 mL) insulin pen 110 unit SUBCUT HS RF: 0 Flovent HFA 110 mcg/actuation HFA aerosol inhaler 2 puffs INH BID RF: 0 methocarbamol 500 mg tablet 500 mg PO Q8 RF: 0 cholecalciferol (vitamin D3) [Vitamin D3] 50 mcg (2,000 unit) Capsule 100 mcg PO HS RF: 0 pantoprazole [Protonix] 40 mg tablet,delayed release (DR/EC) 40 mg PO HS RF: 0 triamcinolone acetonide 0.1 % lotion 1 applic topical HS RF: 0 metformin [Glucophage XR] 500 mg tablet extended release 24 hr 1,000 mg PO BID RF: 0 mirtazapine 30 mg tablet 30 mg PO HS RF: 0 bupropion HCl 100 mg tablet sustained-release 12 hr 100 mg PO HS RF: 0 sucralfate 1 gram tablet 1 g PO ACHS RF: 0 azelastine 137 mcg (0.1 %) aerosol,spray 2 spray INTRANASAL DAILY PRN (Reason: Congestion) RF: 0 Novolin R Flexpen 100 unit/mL (3 mL) insulin pen 35 unit SUBCUT WM RF: 0 Referrals Referrals: Lilibeth Sharma MD [Primary Care Provider] -
--- NOTE | 2021-01-31 22:16 | XRay Report ---
SINGLE VIEW CHEST CLINICAL HISTORY: Generalized weakness. FINDINGS: An AP, portable, upright chest radiograph is compared to study dated 11/30/2020. Correlation is made with chest CT dated 04/14/2016. The heart is top normal for projection. The mediastinal conto ur is within normal limits. Airspace opacities are seen at the left lung base. The right lung is cm r. No large pleural effusion or pneumothorax is seen. The bony thorax is grossly intact. IMPRESSION: Airspace opacities at the left lung base could represent atelectasis versus an infectious /inflammatory pneumonitis. Clinical correlation will be required. ACT 112: Negative or not required by law. Electronically signed by: Selvin Wang M.D. 01/31/2021 10:15 PM
[2021-01-31 22:40] LABS: Basophils # (auto) 0.01 K/uL (0-0.2); Basophils % (auto) 0.1 %; Hematocrit (blood only) 42.5 % (37-47); Hemoglobin 14.5 g/dL (12.0-16.0); Immature Granulocytes # (auto) 0.02 K/uL (0.00-0.02); Immature Granulocytes % (auto) 0.2 %; Lymphocytes # (auto) 2.21 K/uL (1.2-3.4); Lymphocytes % (auto) 21.9 %; Mean Corpuscular Hemoglobin 28.7 pg (25-34); Mean Corpuscular Hgb Conc 34.1 g/dL (32-36); Mean Corpuscular Volume 84.2 fL (80-100); Mean Platelet Volume 9.4 fL (7.4-10.4); Monocytes # (auto) 0.65 K/uL (0.11-0.59); Monocytes % (auto) 6.4 %; Neutrophils # (auto) 7.19 K/uL (1.4-6.5); Neutrophils % (auto) 71.4 %; Platelet Count 302 K/uL (130-400); RDW Coefficient of Variation 13.3 % (11.5-14.5); RDW Standard Deviation 39.9 fL (36.4-46.3); Red Blood Count 5.05 M/uL (4.2-5.4); White Blood Count 10.08 K/uL (4.8-10.8)
[2021-01-31 22:42] LABS: Appearance Urine Clear (Clear); Bilirubin Urine Negative (Negative); Blood Urine Negative (Negative); Color Urine Yellow; Glucose Urine UA Negative (Negative); Ketones Urine Negative (Negative); Leukocyte Esterase Urine Negative (Negative); Nitrite Urine Negative (Negative); Protein Urine Negative (Negative); Specific Gravity Urine 1.028 (1.000-1.030); Urobilinogen Urine Negative (Negative)
[2021-01-31 22:45] LABS: Pregnancy Test, Urine Negative (Negative)
[2021-01-31] MEDS ORDERED: cefTRIAXone SODIUM 2,000 MG/70 ML BAG IV STA (22:48)
[2021-01-31 22:58] LABS: Alanine Aminotransferase 55 U/L (12-78); Albumin Level 3.4 gm/dl (3.4-5.0); Aspartate Aminotransferase 60 U/L (15-37); Blood Urea Nitrogen 10 mg/dl (7-18); Calcium 9.1 mg/dl (8.5-10.1); Carbon Dioxide 27 mmol/L (21-32); Chloride 104 mmol/L (98-107); Est GFR (African American) 123.2 ml/min; Est GFR (Non-African American) 106.3 ml/min; Glucose 113 mg/dl (70-99); Magnesium 1.8 mg/dl (1.8-2.4); Potassium 3.6 mmol/L (3.5-5.1); Sodium 139 mmol/L (136-145)
[2021-01-31 23:08] LABS: Albumin Globulin Ratio 0.8 (0.9-2); Alkaline Phosphatase 95 U/L (45-117); Bilirubin,Total 0.3 mg/dl (0.2-1); Globulin 4.4 gm/dl (2.5-4.0); Thyroid Stimulating Hormone 0.953 uIu/ml (0.300-4.500); Total Protein 7.8 gm/dl (6.4-8.2); Troponin I < 0.015 ng/ml (0-0.045)
--- NOTE | 2021-02-01 00:16 | History & Physical Report ---
Date of Service February 01, 2021 Assessment & Plan (1) Diabetes mellitus with hypoglycemia: Likely secondary to recent increase in Toujeo long-acting insulin from the 120s to the 140s. Hold Toujeo this evening Placed on Accu-Cheks before meals and at bedtime with NovoLog coverage per scale We will give a modified dosing of long-acting insulin when her sugars start to rise, which may happen overnight, and then return to previous dosing Present on Admission?: Yes (2) Hypothyroidism: Continue levothyroxine 75 mcg daily Present on Admission?: Yes (3) Insomnia: Continue mirtazapine 30 mg at bedtime Present on Admission?: Yes (4) Hyperlipidemia: Continue atorvastatin Present on Admission?: Yes (5) Bipolar disorder: Continue routine meds Present on Admission?: Yes (6) Gastro-esophageal reflux disease without esophagitis: Continue pantoprazole Present on Admission?: Yes (7) Migraines: Continue routine meds Present on Admission?: Yes History of Present Illness Chief Complaint: The patient presents to the emergency department with complaint of low blood sugar since last evening and throughout the day today Primary Care Provider: Lilibeth Sharma MD The patient is a 45-year-old female with a past medical history including chronic neck pain, endometriosis, allergic rhinitis, vitamin D deficiency, internal hemorrhoids, moderate persistent asthma, diabetes mellitus with gastroparesis, irritable bowel syndrome with diarrhea, kidney stones, gastritis, hypertension, GERD, nonproliferative diabetic retinopathy both eyes, migraines, peripheral neuropathy, GERD without esophagitis, celiac disease, fatty liver, hyperlipidemia, hypothyroidism, ARIELLE, morbid obesity with BMI 48, bipolar disorder and hiatal hernia. 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 She reports that last evening her blood sugar dropped into the 50s, and despite eating strawberry shortcake and other sweets her blood sugars remained in the 50s throughout the day today. Upon arrival in ED, her blood sugar has been in the low 100s. She reports that she has had intermittent issues with diarrhea over the past week, along with nausea, but has not had any blood in stool and does not have any abdominal pain. Allergies Allergy/AdvReac Type Severity Reaction Status Date / Time adhesive Allergy Intermediate skin Verified 01/31/21 21:56 redness, itchy bee venom protein (honey bee) Allergy Intermediate red Verified 01/31/21 21:56 welts/swelling > bruising citalopram Allergy Intermediate jaw pain, Verified 01/31/21 21:56 headaches morphine Allergy Intermediate localized Verified 01/31/21 21:56 reaction, redness/welts pollen extracts AdvReac Intermediate itchy Verified 01/31/21 21:56 eyes, scratchy throat, swollen eyes Home Medications Medication Instructions Recorded Confirmed Type meclizine 25 mg PO TID PRN 11/30/19 01/31/21 History ipratropium-albuterol 3 ml INH Q8H PRN 01/10/20 01/31/21 History atorvastatin 20 mg tablet 20 mg PO HS #90 tab 02/18/20 01/31/21 Rx Flovent HFA 2 puffs INH BID 04/21/20 01/31/21 History insulin glargine U-300 conc 110 unit SUBCUT HS 04/21/20 01/31/21 History [Toujeo Max U-300 SoloStar] gabapentin 400 mg capsule 400 mg PO TID cap 05/04/20 01/31/21 History ketorolac 10 mg tablet 10 mg PO Q8H PRN #10 tab 07/13/20 01/31/21 Rx sennosides-docusate sodium 1 - 2 tab-cap PO BID PRN #60 tab 07/20/20 01/31/21 Rx [Senokot-S] ondansetron 4 mg disintegrating 4 mg PO TID PRN #30 tab 08/12/20 01/31/21 Rx tablet rimegepant 75 mg disintegrating 75 mg PO DAILY PRN #8 tab 08/12/20 01/31/21 Rx tablet aspirin [Aspir-Low] 81 mg PO HS 08/31/20 01/31/21 History naproxen 500 mg tablet 500 mg PO DAILY PRN #30 tab 10/05/20 01/31/21 Rx polyethylene glycol 3350 17 8.5 g PO DAILY PRN #238 g 10/08/20 01/31/21 Rx gram/dose oral powder lisinopril 10 mg tablet 10 mg PO HS #90 tab 10/12/20 01/31/21 Rx albuterol sulfate 90 mcg/actuation 2 inh INH Q6H PRN #8.5 g 10/23/20 01/31/21 Rx aerosol inhaler naproxen sodium 550 mg tablet 550 mg PO Q12H 14 Days #28 tab 10/23/20 01/31/21 Rx bupropion HCl 100 mg PO HS 11/12/20 01/31/21 History mirtazapine 30 mg PO HS 11/12/20 01/31/21 History azelastine 2 spray INTRANASAL DAILY PRN 11/13/20 01/31/21 History benralizumab 30 mg/mL subcutaneous See Rx Instructions SUBCUT 11/13/20 01/31/21 Rx syringe .COMPLEX #1 ml sucralfate 1 g PO ACHS 11/13/20 01/31/21 History cyclobenzaprine 10 mg tablet 10 mg PO HS #20 tab 11/17/20 01/31/21 Rx insulin regular human 100 unit/mL 35 unit SUBCUT WM ml 11/24/20 01/31/21 History (3 mL) subcutaneous pen methocarbamol 500 mg PO Q8 11/30/20 01/31/21 History dicyclomine 10 mg capsule 10 mg PO TID PRN #90 cap 12/09/20 01/31/21 Rx cholecalciferol (vitamin D3) 100 mcg PO HS 01/26/21 01/31/21 History [Vitamin D3] metformin [Glucophage XR] 1,000 mg PO BID 01/26/21 01/31/21 History pantoprazole [Protonix] 40 mg PO HS 01/26/21 01/31/21 History triamcinolone acetonide 1 applic TOPICAL HS 01/26/21 01/31/21 History budesonide-formoterol HFA 160 2 inh INHALATION BID #1 inhaler 01/27/21 01/31/21 Rx mcg-4.5 mcg/actuation aerosol inhaler epinephrine 0.3 mg/0.3 mL 0.3 mg IM DIRECTED PRN #1 ea 01/27/21 01/31/21 Rx injection, auto-injector levothyroxine 75 mcg tablet 75 mcg PO HS #90 tab 01/27/21 01/31/21 Rx tiotropium bromide 1.25 2 puff INHALATION QAM #4 g 01/27/21 01/31/21 Rx mcg/actuation mist for inhalation Past Med/Surg History Medical History Allergy or toxic reaction to venom Anxiety Asthma LAST USED RESCUE INHALER>1 WEEK AGO Bipolar disorder Celiac disease Chronic diarrhea 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 hearing of left ear Depression Diabetic peripheral neuropathy associated with type 2 diabetes mellitus Dysesthesia Fatty infiltration of liver Gastritis Gastro-esophageal reflux disease without esophagitis Gastroparesis Hiatal hernia Hip problem GROWTH ON LEFT HIP (PLANS TO HAVE SURGERY TO GET REMOVED) History of kidney stones Hx of endometriosis Hx of irritable bowel syndrome Hyperlipidemia Hypertension Hypothyroidism Insomnia Loss of protective sensation of skin of foot Migraines Morbid obesity Obstructive sleep apnea non-compliant with cpap, could not tolerate Post traumatic stress disorder Sciatica TIA (transient ischemic attack) ? DATE "MANY YEARS AGO" Surgical History H/O: hysterectomy History of anesthesia reaction SLOW TO WAKE UP History of arthroscopy of right shoulder History of bladder surgery suburethral sling with hysterectomy in 2009 History of cholecystectomy History of knee surgery RIGHT History of myringotomy bilateral tubes (multiple), Right myringotomy tube: 04/09/18[place] [facility] [place] at [place] was 118[place]) History of tonsillectomy History of tooth extraction History of tubal ligation Family History Father Myocardial infarction Prostate cancer Diabetes Hypertension Mother , 2008 Myocardial infarction Dementia Diabetes Hypertension Other No significant family history Denies family history of Ovarian cancer Crohn's disease Breast cancer Colorectal cancer Ulcerative colitis Social History Smoking Status: Never smoker Second Hand Exposure: Yes (CURRENT); Hx Alcohol Use: No Hx Substance Use: Yes Last Used Substance Other:: RECOVERING DRUG USER 2001 (COCAINE/MARIJUANA) Substance Use Type Other:: medical marijuana Preferred Language: Polish Communication Ability: Effective Visual Impairment: No Limitations Hearing Ability: Normal 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 Other Information That Helps Us Care for You: No Feels Safe at Home: Yes Safety Concerns: Feels Safe At This Time Childhood Exposure to Second-Hand Smoke: Yes Dental Care, Regularly: Yes Physical Activity Frequency: Does not Exercise Seatbelt Use: always Sunscreen Use: Yes Assistive Devices: Walker Review of Systems Review of Systems: The patient denies chest pain, palpitations, shortness of breath, dyspnea on exertion, cough, lower extremity swelling, sore throat, fevers, chills, sweats, vomiting, diarrhea , constipation, abdominal pain, pelvic pain, blood in urine or stool, dysuria, urinary frequency or urgency, lightheadedness, dizziness, headache, memory loss, loss of consciousness, rash, abnormal bruising or bleeding, imbalance, focal or generalized weakness, in arms or legs, generalized arthralgias or myalgias, back or neck pain, or night sweats. The review of systems is otherwise negative other than for that already noted above, and at least 10 systems have been reviewed. Physical Exam Physical Exam: The patient is awake, alert and oriented 3, well developed and well nourished, normocephalic and atraumatic, lying in bed and in no acute distress. HEENT--PERRL, EOMI, mucous membranes and oropharynx normal. Neck--supple. No JVD. No bruits. Thyroid normal, trachea midline, no adenopa thy. Heart--normal S1 and S2. No murmurs, rubs or gallops. Lungs--clear bilaterally, no respiratory distress, no accessory muscle use. Abdomen--normal bowel sounds and soft. Nontender. Nondistended. Morbidly obese Extremities--no cyanosis or clubbing. No edema. Dermatologic--normal skin turgor, normal color, no abnormal lymph nodes, no rash. Neurologic--cranial nerves II through XII grossly intact. Rheumatologic--normal range of motion. Psychiatric--normal affect. Results & Data Results & Data ([facility]) Vital Signs (Past 12 Hours) Vital Signs Temp Pulse Pulse Resp BP BP Pulse Ox 01/31/21 23:30 98 H 18 154/79 H 94 01/31/21 22:31 95 H 23 166/90 H 01/31/21 22:30 94 H 19 01/31/21 22:00 100 H 16 94 01/31/21 21:53 106 H 103 H 17 167/31 H 94 01/31/21 21:50 105 H 24 167/91 H 94 01/31/21 21:30 96.6 F L 102 H 18 174/65 H 96 Laboratory Results Laboratory Results WBC 10.08 K/uL (4.8-10.8) 01/31/21 22:20 RBC 5.05 M/uL (4.2-5.4) 01/31/21 22:20 Hgb 14.5 g/dL (12.0-16.0) 01/31/21 22:20 Hct 42.5 % (37-47) 01/31/21 22:20 MCV 84.2 fL (80-100) 01/31/21 22:20 MCH 28.7 pg (25-34) 01/31/21 22:20 MCHC 34.1 g/dL (32-36) 01/31/21 22:20 RDW Std Deviation 39.9 fL (36.4-46.3) 01/31/21 22:20 RDW Coeff of [place] 13.3 % (11.5-14.5) 01/31/21 22:20 Plt Count 302 K/uL (130-400) 01/31/21 22:20 MPV 9.4 fL (7.4-10.4) 01/31/21 22:20 Immature Gran % (Auto) 0.2 % 01/31/21 22:20 Neut % (Auto) 71.4 % 01/31/21 22:20 Lymph % (Auto) 21.9 % 01/31/21 22:20 [place] % (Auto) 6.4 % 01/31/21 22:20 Eos % (Auto) 0.0 % 01/31/21 22:20 Baso % (Auto) 0.1 % 01/31/21 22:20 Neut # (Auto) 7.19 K/uL (1.4-6.5) H 01/31/21 22:20 Lymph # (Auto) 2.21 K/uL (1.2-3.4) 01/31/21 22:20 [place] # (Auto) 0.65 K/uL (0.11-0.59) H 01/31/21 22:20 Eos # (Auto) 0.00 K/uL (0-0.5) 01/31/21 22:20 Baso # (Auto) 0.01 K/uL (0-0.2) 01/31/21 22:20 Immature Gran # (Auto) 0.02 K/uL (0.00-0.02) 01/31/21 22:20 Sodium 139 mmol/L (136-145) 01/31/21 22:20 Potassium 3.6 mmol/L (3.5-5.1) 01/31/21 22:20 Chloride 104 mmol/L (98-107) 01/31/21 22:20 Carbon Dioxide 27 mmol/L (21-32) 01/31/21 22:20 Anion Gap 8.0 (3-11) 01/31/21 22:20 BUN 10 mg/dl (7-18) 01/31/21 22:20 Creatinine 0.64 mg/dl (0.6-1.2) 01/31/21 22:20 Est Cr Clr Drug Dosing 139.0 ml/min 01/31/21 22:20 Est GFR ( Amer) 123.2 ml/min 01/31/21 22:20 Est GFR (Non-Af Amer) 106.3 ml/min 01/31/21 22:20 BUN/Creatinine Ratio 15.0 (10-20) 01/31/21 22:20 Glucose 113 mg/dl (70-99) H 01/31/21 22:20 POC Glucose 96 mg/dl (70-99) 02/01/21 01:18 Calcium 9.1 mg/dl (8.5-10.1) 01/31/21 22:20 Magnesium 1.8 mg/dl (1.8-2.4) 01/31/21 22:20 Total Bilirubin 0.3 mg/dl (0.2-1) 01/31/21 22:20 AST 60 U/L (15-37) H 01/31/21 22:20 ALT 55 U/L (12-78) 01/31/21 22:20 Alkaline Phosphatase 95 U/L (45-117) 01/31/21 22:20 Troponin I < 0.015 ng/ml (0-0.045) 01/31/21 22:20 Total Protein 7.8 gm/dl (6.4-8.2) 01/31/21 22:20 Albumin 3.4 gm/dl (3.4-5.0) 01/31/21 22:20 Globulin 4.4 gm/dl (2.5-4.0) H 01/31/21 22:20 Albumin/Globulin Ratio 0.8 (0.9-2) L 01/31/21 22:20 TSH 0.953 uIu/ml (0.300-4.500) 01/31/21 22:20 Urine Color Yellow 01/31/21 22:20 Urine Appearance Clear (Clear) 01/31/21 22:20 Urine pH 5.0 (4.5-7.5) 01/31/21 22:20 Ur Specific [place] 1.028 (1.000-1.030) 01/31/21 22:20 Urine Protein Negative (Negative) 01/31/21 22:20 Urine Glucose (UA) Negative (Negative) 01/31/21 22:20 Urine Ketones Negative (Negative) 01/31/21 22:20 Urine Blood Negative (Negative) 01/31/21 22:20 Urine Nitrite Negative (Negative) 01/31/21 22:20 Urine Bilirubin Negative (Negative) 01/31/21 22:20 Urine Urobilinogen Negative (Negative) 01/31/21 22:20 Ur Leukocyte Esterase Negative (Negative) 01/31/21 22:20 Urine Test Negative (Negative) 01/31/21 22:20 COVID-19 Eval Order Covid19 at [facility] 01/31/21 22:49 SARS-CoV-2 (PCR) NEGATIVE (Negative) 01/31/21 22:49 Impressions Chest X-Ray 01/31/21 21:57 SINGLE VIEW CHEST CLINICAL HISTORY: Generalized weakness. FINDINGS: An AP, portable, upright chest radiograph is compared to study dated 11/30/2020. Correlation is made with chest CT dated 04/14/2016. The heart is top normal for projection. The mediastinal contour is within normal limits. Airspace opacities are seen at the left lung base. The right lung is clear. No large pleural effusion or pneumothorax is seen. The bony thorax is grossly intact. IMPRESSION: Airspace opacities at the left lung base could represent atelectasis versus an infectious/inflammatory pneumonitis. Clinical correlation will be required. ACT 112: Negative or not required by law. Electronically signed by: Selvin Wang M.D. 01/31/2021 10:15 PM Code Status & VTE Plan Code Status Full code VTE Prophylaxis Plan VTE Prophylaxis will be ordered: Yes PG Care Time/CCT Total # of Minutes Spent Total Time Spent with Patient: Total time spent is greater than 50% in coordination of care (as documented) at patient's floor/unit and/or counseling patient: Coding Level of Care Code 40671 OBS Care - Level 3 Diagnoses Diabetes mellitus with hypoglycemia E11.649 Hypothyroidism E03.9 Hypothyroidism type: unspecified Insomnia G47.00 Hyperlipidemia E78.2 Hyperlipidemia type: mixed hyperlipidemia Bipolar disorder F31.9 Gastro-esophageal reflux disease without esophagitis K21.9 Migraines G43.909 (1) Hypothyroidism Hypothyroidism type: unspecified Qualified Code(s): E03.9 - Hypothyroidism, unspecified (2) Hyperlipidemia Hyperlipidemia type: mixed hyperlipidemia Qualified Code(s): E78.2 - Mixed hyperlipidemia
[2021-02-01] MEDS ORDERED: CARBOHYDRATES FOR HYPOGLYCEMIA PO PRN (01:22)
[2021-02-01] MEDS ORDERED: DEXTROSE 50% 50 ML SYRINGE IV PRN (01:22)
[2021-02-01] MEDS ORDERED: ALBUT/IPRATROP 3MG/0.5MG NEB 3 ML VIAL INH PRN (01:22)
[2021-02-01] MEDS ORDERED: POLYETHYLENE (MIRALAX) 17 GM PACK PO PRN (01:22)
[2021-02-01] MEDS ORDERED: DOCUSATE SODIUM/SENNA 50/8.6MG TAB PO PRN (01:22)
[2021-02-01] MEDS ORDERED: DICYCLOMINE HCL 10 MG CAP PO PRN (01:22)
[2021-02-01] MEDS ORDERED: ACETAMINOPHEN 325 MG TAB PO PRN (01:22)
[2021-02-01] MEDS ORDERED: MECLIZINE HCL 25 MG TAB PO PRN (01:22)
[2021-02-01] MEDS ORDERED: GLUCOSE 40% GEL 15 GM TUBE PO PRN (01:22)
[2021-02-01] MEDS ORDERED: GLUCOSE 10 TABS/TUBE PO PRN (01:22)
[2021-02-01] MEDS ORDERED: GLUCAGON FOR INJ 1 MG VIAL SQ PRN (01:22)
[2021-02-01] MEDS ORDERED: ONDANSETRON 4 MG OD TAB PO PRN (01:38)
[2021-02-01] MEDS ORDERED: FLUTICASONE/VILANTEROL 200/25MCG 14 PUFFS/INHALER INH SCH (01:45)
[2021-02-01] MEDS ORDERED: Nursing to Pharmacy Communication SCH (01:45)
[2021-02-01] MEDS ORDERED: FLUTICASONE FUROATE 200MCG 14 PUFFS/INHALER INH SCH (01:45)
[2021-02-01] MEDS ORDERED: MIRTAZAPINE TAB 15 MG TAB PO ONE (02:00)
[2021-02-01] MEDS: ONDANSETRON INJ 2 MG/ML 2 ML VIAL IV PRN ×2 (05:12→13:32)
[2021-02-01] MEDS ORDERED: NITROGLYCERIN 2% OINTMENT 30GM TUBE ONE (05:18)
--- NOTE | 2021-02-01 05:33 | Communication Note ---
Date of Service: February 01, 2021 Called by nursing to evaluate patient who had just finished vomiting and shortly after noticed "crushing 10/10 chest pain like a stone on my chest." Patient was immediately placed on O2 by nursing. When I came to evaluate patient, she was on her phone scrolling and discussed about how she had presented to the hospital due to having issues with her sugars. After roughly 5 minutes I prompted the patient in regards to her chest pain to which she noted to me the same description as she did to nursing. She states that she does get SOB on exertion at baseline and that this event felt similar to when she "had pneumonia and the flu which turned into bronchitis" in the past. PE: Vitals stable with BP 130/83, HR 86, 87% on 2L NC Heart: RRR, no murmurs, gallops, rubs Lungs: CTA bilateral MSK: Severe tenderness to palpation of distal lateral sternum b/l, worse on the R overlying the costochondral junction Plan: -EKG without significant changes from earlier EKG in ED today -Low suspicion for ACS at this time, as patient's pain is reproducible to palpation -Suspect more of a costochondritis from the recent vomiting and positional changes -Will draw for CBC, CMP, Mag, Trop -Trial Nitro paste Resident Activity Tracking Resident Involvement: Resident Care Provided and Penetration Tester Coverage Note Care Provided: Adult Hospital Medicine
[2021-02-01 05:42] LABS: Basophils # (auto) 0.01 K/uL (0-0.2); Basophils % (auto) 0.1 %; Hemoglobin 13.7 g/dL (12.0-16.0); Immature Granulocytes # (auto) 0.01 K/uL (0.00-0.02); Immature Granulocytes % (auto) 0.1 %; Lymphocytes # (auto) 2.45 K/uL (1.2-3.4); Lymphocytes % (auto) 23.9 %; Mean Corpuscular Volume 86.9 fL (80-100); Mean Platelet Volume 9.6 fL (7.4-10.4); Monocytes # (auto) 0.59 K/uL (0.11-0.59); Monocytes % (auto) 5.7 %; Neutrophils # (auto) 7.21 K/uL (1.4-6.5); Neutrophils % (auto) 70.2 %; Platelet Count 321 K/uL (130-400); RDW Coefficient of Variation 13.2 % (11.5-14.5); RDW Standard Deviation 42.4 fL (36.4-46.3); Red Blood Count 4.72 M/uL (4.2-5.4); White Blood Count 10.27 K/uL (4.8-10.8)
[2021-02-01 05:48] LABS: Mean Corpuscular Hgb Conc 33.4 g/dL (32-36)
[2021-02-01] MEDS: METHOCARBAMOL 500 MG TABLET PO SCH ×2 (05:59→08:26)
[2021-02-01 06:09] LABS: Alanine Aminotransferase 51 U/L (12-78); Albumin Level 3.2 gm/dl (3.4-5.0); Aspartate Aminotransferase 50 U/L (15-37); BUN Creatinine Ratio 13.7 (10-20); Blood Urea Nitrogen 10 mg/dl (7-18); Calcium 8.5 mg/dl (8.5-10.1); Carbon Dioxide 27 mmol/L (21-32); Chloride 106 mmol/L (98-107); Creatinine Clr Calc Pharmacy 125.3 ml/min; Est GFR (African American) 117.6 ml/min; Est GFR (Non-African American) 101.4 ml/min; Glucose 138 mg/dl (70-99); Magnesium 1.9 mg/dl (1.8-2.4); Potassium 3.7 mmol/L (3.5-5.1); Sodium 141 mmol/L (136-145)
[2021-02-01 06:14] LABS: Albumin Globulin Ratio 0.8 (0.9-2); Alkaline Phosphatase 96 U/L (45-117); Bilirubin,Total 0.3 mg/dl (0.2-1); Globulin 4.1 gm/dl (2.5-4.0); Total Protein 7.3 gm/dl (6.4-8.2); Troponin I < 0.015 ng/ml (0-0.045)
[2021-02-01 07:04] LABS: Estimated Average Glucose 220 mg/dl; Hemoglobin A1C 9.3 % (4.5-5.6)
--- NOTE | 2021-02-01 08:08 | Discharge Summary ---
Date of Service February 01, 2021 Admission HPI Per Admitting Provider Chief Complaint: The patient presents to the emergency department with complaint of low blood sugar since last evening and throughout the day today Primary Care Provider: Lilibeth Sharma MD The patient is a 45-year-old female with a past medical history including chronic neck pain, endometriosis, allergic rhinitis, vitamin D deficiency, internal hemorrhoids, moderate persistent asthma, diabetes mellitus with gastro paresis, irritable bowel syndrome with diarrhea, kidney stones, gastritis, hypertension, GERD, nonproliferative diabetic retinopathy both eyes, migraines, peripheral neuropathy, GERD without esophagitis, celiac disease, fatty liver, hyperlipidemia, hypothyroidism, ARIELLE, morbid obesity with BMI 48, bipolar disorder and hiatal hernia. She reports that she had gone to her crop grain or livestock farmer last week and her long-acting insulin had increased from 120 something to 140 something because her sugars were averaging above 200. She reports that last evening her blood sugar dropped into the 50s, and despite eating strawberry shortcake and other sweets her blood sugars remained in the 50s throughout the day today. Upon arrival in ED, her blood sugar has been in the low 100s. She reports that she has had intermittent issues with diarrhea over the past week, along with nausea, but has not had any blood in stool and does not have any abdominal pain. Admission Exam Per Admitting Provider The patient is awake, alert and oriented 3, well developed and well nourished, normocephalic and atraumatic, lying in bed and in no acute distress. HEENT--PERRL, EOMI, mucous membranes and oropharynx normal. Neck--supple. No JVD. No bruits. Thyroid normal, trachea midline, no adenopathy. Heart--normal S1 and S2. No murmurs, rubs or gallops. Lungs--clear bilaterally, no respiratory distress, no accessory muscle use. Abdomen--normal bowel sounds and soft. Nontender. Nondistended. Morbidly obese Extremities--no cyanosis or clubbing. No edema. Dermatologic--normal skin turgor, normal color, no abnormal lymph nodes, no rash. Neurologic--cranial nerves II through XII grossly intact. Rheumatologic--normal range of motion. Psychiatric--normal affect. Principal Diagnosis Diabetes with hyperglycemia Discharge Data Allergies Allergy/AdvReac Type Severity Reaction Status Date / Time adhesive Allergy Intermediate skin Verified 02/02/21 16:25 redness, itchy bee venom protein (honey bee) Allergy Intermediate red Verified 02/02/21 16:25 welts/swelling > bruising citalopram Allergy Intermediate jaw pain, Verified 02/02/21 16:25 headaches morphine Allergy Intermediate localized Verified 02/02/21 16:25 reaction, redness/welts pollen extracts AdvReac Intermediate itchy Verified 02/02/21 16:25 eyes, scratchy throat, swollen eyes Consultations 02/01/21 00:03 ED Decision to Admit Stat Hospital Course (1) Diabetes mellitus with hypoglycemia: Diabetes mellitus with hypoglycemia Patient previously tolerated long-acting Toujeo and 110 units, recently increased to 140 as per her crop grain or livestock farmer. Patient experienced significant hypoglycemia associated with this resulting in her current presentation. Toujeo was held and she was placed on sliding scale. Her blood sugars normalized and her symptoms resolved. Given her hypoglycemia will transition back to Toujeo 110 units and recommend patient follow-up with crop grain or livestock farmer as soon as practical. Hypothyroidism Continued levothyroxine 75 mcg daily Insomnia Continued mirtazapine 30 mg at bedtime Hyperlipidemia Continued atorvastatin Bipolar disorder Continued home meds GERD Continued pantoprazole Migraines Continued home meds (2) Hypothyroidism: Continue levothyroxine 75 mcg daily (3) Insomnia: Continue mirtazapine 30 mg at bedtime (4) Hyperlipidemia: Continue atorvastatin (5) Bipolar disorder: Continue routine meds (6) Gastro-esophageal reflux disease without esophagitis: Continue pantoprazole (7) Migraines: Continue routine meds Total Time Total Time Spent Total Time Spent (In Minutes): 30 Discharge Plan Discharge Items Patient Disposition: Home - Self-Care Reason For Visit: hypoglycemia in diabetes mellitus Discharge Diagnosis: Diabetes with hyperglycemia Condition on Discharge: Good Activity: Resume your previous activity Non-emergency contact: Primary Care Provider Call non-emergency contact if: you have any medication questions, your pain is not controlled and your temperature is above 101.5 Follow-up/Referrals: Lilibeth Sharma MD [Primary Care Provider] - Diet: Carb Consistent or DM2 Addtl Attending Provider Instructions: Care instructions: You were admitted to [facility] for treatment of hypoglycemia secondary to increase in your diabetes medication. While hospitalized your blood sugars were monitored and medications were administered to achieve normal blood sugars. Upon discharge you were transitioned back to your prior dose of Toujeo 110 units. We recommend that you follow-up with your crop grain or livestock farmer on discharge to determine the most appropriate insulin regimen. A discharge summary will be sent to your primary care physician to ensure continuity of care. Please bring this discharge summary with you to your next office appointment so that your provider can review it at that time. Follow-up appointments: - Keep all your follow-up appointments as already scheduled. If you cannot make an appointment, notify your provider. - Please call to request a follow-up appointment with your primary care physician within one week of discharge. Please let us know if you are unable to obtain an appointment Medications: - Your medication list has been reviewed and reconciled upon discharge to ensure accuracy and continuity of care. - You are provided with a list of all your current medications at this time. Please review this list closely and make note of any changes. - Please take all of your medications exactly as prescribed. - Tell your primary care provider if you cannot afford your medications. - Call your primary care provider if you are having any side effects or any other problems. - Call your primary care provider before taking any over the counter medications or supplements, including herbals and vitamins, because some of these may interact with your current medications and/or make your symptoms worse. Symptoms: Please call your primary care provider for symptoms including, but not limited to: fevers (temperatures greater than 100.4), chills, intractable nausea or vomiting, diarrhea, rash, shortness of breath, bleeding, pain, or if you experience any worsening of the symptoms that brought you to the hospital. For EMERGENCY and VERY SERIOUS health-related issues, such as chest pain, shortness of breath, or sudden onset of the symptoms that brought you to the hospital, you may need to call 911 or go directly to the Emergency Room It has been our privilege to take care of you during your hospital stay. And Above All Else Feel Better! Best Wishes, Marlon Olivera MD PGY2 Resident, Family & Community Medicine [facility] Residency at [facility] - [address], [address] MC: [address] [place] [address], [place] [address] Pending Studies at Discharge: No Stand-Alone Forms: My [facility], Smoking Cessation Medications and DC Order Prescriptions: Continued naproxen 500 mg tablet 500 mg PO DAILY PRN (Reason: before activity to prevent headache) Qty: 30 RF: 1 lisinopril [Zestril] 10 mg tablet 10 mg PO HS Qty: 90 RF: 1 cyclobenzaprine 10 mg tablet 10 mg PO HS Qty: 20 RF: 0 levothyroxine [Synthroid] 75 mcg tablet 75 mcg PO HS Qty: 90 RF: 1 ketorolac 10 mg tablet 10 mg PO Q8H PRN (Reason: pain) Qty: 10 RF: 0 dicyclomine 10 mg capsule 10 mg PO TID PRN (Reason: IBS) Qty: 90 RF: 2 budesonide-formoterol [Symbicort] 160-4.5 mcg/actuation HFA aerosol inhaler 2 inh inhalation BID Qty: 1 RF: 6 epinephrine [EpiPen] 0.3 mg/0.3 mL auto-injector 0.3 mg IM DIRECTED PRN (Reason: Allergic Reaction) Qty: 1 RF: 3 Spiriva Respimat 1.25 mcg/actuation mist 2 puff inhalation QAM Qty: 4 RF: 11 Fasenra 30 mg/mL syringe See Rx Instructions subcut .COMPLEX Qty: 1 RF: 0 gabapentin 400 mg capsule 400 mg PO TID RF: 0 polyethylene glycol 3350 [Miralax] 17 gram/dose powder 8.5 g PO DAILY PRN (Reason: constipation) Qty: 238 RF: 5 albuterol sulfate 90 mcg/actuation HFA aerosol inhaler 2 inh INH Q6H PRN (Reason: Shortness Of Breath Or Wheezing) Qty: 8.5 RF: 2 naproxen sodium 550 mg tablet 550 mg PO Q12H 14 Days Qty: 28 RF: 0 ondansetron 4 mg tablet,disintegrating 4 mg PO TID PRN (Reason: nausea and vomiting) Qty: 30 RF: 1 Nurtec ODT 75 mg tablet,disintegrating 75 mg PO DAILY PRN (Reason: migraine headache) Qty: 8 RF: 5 ipratropium-albuterol 0.5 mg-3 mg(2.5 mg base)/3 mL solution for nebulization 3 ml INH Q8H PRN (Reason: Wheezing) RF: 0 sennosides-docusate sodium [Senokot-S] 8.6-50 mg tablet 1 - 2 tab-cap PO BID PRN (Reason: constipation) Qty: 60 RF: 2 aspirin 81 mg Tablet,Delayed Release (Dr/Ec) 81 mg PO HS RF: 0 meclizine 25 mg tablet 25 mg PO TID PRN (Reason: Dizziness) RF: 0 Toujeo Max U-300 SoloStar 300 unit/mL (3 mL) insulin pen 110 unit SUBCUT HS RF: 0 Flovent HFA 110 mcg/actuation HFA aerosol inhaler 2 puffs INH BID RF: 0 methocarbamol 500 mg tablet 500 mg PO Q8 RF: 0 cholecalciferol (vitamin D3) [Vitamin D3] 50 mcg (2,000 unit) Capsule 100 mcg PO HS RF: 0 pantoprazole [Protonix] 40 mg tablet,delayed release (DR/EC) 40 mg PO HS RF: 0 triamcinolone acetonide 0.1 % lotion 1 applic topical HS RF: 0 metformin [Glucophage XR] 500 mg tablet extended release 24 hr 1,000 mg PO BID RF: 0 mirtazapine 30 mg tablet 30 mg PO HS RF: 0 bupropion HCl 100 mg tablet sustained-release 12 hr 100 mg PO HS RF: 0 sucralfate 1 gram tablet 1 g PO ACHS RF: 0 azelastine 137 mcg (0.1 %) aerosol,spray 2 spray INTRANASAL DAILY PRN (Reason: Congestion) RF: 0 Novolin R Flexpen 100 unit/mL (3 mL) insulin pen 35 unit SUBCUT WM RF: 0 No Action atorvastatin [Lipitor] 20 mg tablet 20 mg PO HS Qty: 90 RF: 3 Discharge Orders: Discharge Order (Routine); Ordered 02/01/21 Ordered By: Marlon Olivera Admission Data Admit Date/Time: 02/01/21 00:15 Attending Provider: Cassandra Osman Admit Provider: Lucas Sutherland Primary Care Provider: Lilibeth Sharma Other Providers: Lucas Sutherland Other Interventions: Discharge Summary Assessment (RN) Last Done: 02/01/21 16:05 Supervising Physician Co-Signing Physician Notes Resident Physician Supervision Note: I independently interviewed and examined the patient and verified the [place] history and physical, reviewed labs and image studies and agree with resident Dr. Olivera findings and care plan. Resident Activity Tracking Resident Involvement: Resident Care Provided Care Provided: Adult [facility] Medicine
[2021-02-01] MEDS: SUCRALFATE 1 GM TAB PO SCH ×3 (08:24→16:32)
[2021-02-01] MEDS: GABAPENTIN 400 MG CAP PO SCH ×2 (08:25→15:16)
[2021-02-01] MEDS: KETOROLAC TROMETHAMINE 10 MG TABLET PO PRN ×2 (08:26→16:32)
[2021-02-01] MEDS: INSULIN ASPART 100 UNITS/ML 3 ML PEN SC SCH ×3 (08:30→17:36)
[2021-02-01] MEDS: NURTEC~ORDER AWAITING ACTION SCH ×2 (08:34→15:40)
[2021-02-01] MEDS ORDERED: NAPROXEN 250 MG TAB PO SCH (09:00)
[2021-02-01] MEDS ORDERED: AZITHROMYCIN 250 MG TAB PO SCH (09:00)
[2021-02-01] MEDS ORDERED: UMECLIDINIUM BROMIDE 62.5MCG/BLISTER 7 PUFFS/INHALER INH SCH (09:00)
--- NOTE | 2021-02-01 10:10 | Electrocardiogram Report ---
Test Reason : Blood Pressure : / mmHG Vent. Rate : 097 BPM Atrial Rate : 097 BPM P-R Int : 130 ms QRS Dur : 092 ms QT Int : 372 ms P-R-T Axes : 029 -30 031 degrees QTc Int : 472 ms Normal sinus rhythm Left axis deviation Abnormal ECG When compared with ECG of 30-NOV-2020 04:42, Criteria for Septal infarct are no longer Present Confirmed by Alex Werner ([id number]) on 02/01/2021 10:10:28 AM Referred By: REFERRED SELF Confirmed By:Aelx Werner
--- NOTE | 2021-02-01 10:16 | Electrocardiogram Report ---
Test Reason : Blood Pressure : / mmHG Vent. Rate : 103 BPM Atrial Rate : 103 BPM P-R Int : 132 ms QRS Dur : 086 ms QT Int : 358 ms P-R-T Axes : 037 -34 056 degrees QTc Int : 468 ms Sinus tachycardia Left axis deviation Abnormal ECG When compared with ECG of 31-JAN-2021 22:08, (unconfirmed) No significant change was found Confirmed by Alex Werner ([id number]) on 02/01/2021 10:16:09 AM Referred By: REFERRED SELF Confirmed By:Alex Werner
[2021-02-01] MEDS ORDERED: CHOLECALCIFEROL 1,000 UNITS 25 MCG TAB PO SCH (21:00)
[2021-02-01] MEDS ORDERED: MIRTAZAPINE TAB 15 MG TAB PO SCH (21:00)
[2021-02-01] MEDS ORDERED: lisinopril 10 MG TAB PO SCH (21:00)
[2021-02-01] MEDS ORDERED: CYCLOBENZAPRINE HCL 10 MG TAB PO SCH (21:00)
[2021-02-01] MEDS ORDERED: buPROPion SR 100 MG TABCR PO SCH (21:00)
[2021-02-01] MEDS ORDERED: LEVOTHYROXINE SODIUM 75 MCG TABLET PO SCH (21:00)
[2021-02-01] MEDS ORDERED: ATORVASTATIN 20 MG TAB PO SCH (21:00)
[2021-02-01] MEDS ORDERED: ASPIRIN 81 MG ECTAB PO SCH (21:00)
[2021-02-01] MEDS ORDERED: PANTOprazole 40 MG TAB PO SCH (21:00)
== END 2021-02-01 18:09 | disposition home or self-care (01) ==
LOC: ED 21:27 → 2N 21:27 → SUATTDRO 02-01 00:15 → 2N 02-01 01:15

== ENCOUNTER 2021-07-20 18:30 | Observation (INO) ==
[2021-07-20 19:20] LABS: Basophils # (auto) 0.02 K/uL (0-0.2); Basophils % (auto) 0.1 %; Hemoglobin 15.4 g/dL (12.0-16.0); Immature Granulocytes # (auto) 0.06 K/uL (0.00-0.02); Immature Granulocytes % (auto) 0.4 %; Lymphocytes # (auto) 3.48 K/uL (1.2-3.4); Mean Corpuscular Hemoglobin 29.9 pg (25-34); Mean Corpuscular Hgb Conc 34.2 g/dL (32-36); Mean Corpuscular Volume 87.4 fL (80-100); Monocytes # (auto) 0.91 K/uL (0.11-0.59); Monocytes % (auto) 6.5 %; Neutrophils # (auto) 9.43 K/uL (1.4-6.5); Platelet Count 349 K/uL (130-400); RDW Coefficient of Variation 12.7 % (11.5-14.5); RDW Standard Deviation 40.6 fL (36.4-46.3); Red Blood Count 5.15 M/uL (4.2-5.4)
[2021-07-20 19:50] LABS: Potassium 3.6 mmol/L (3.5-5.1)
[2021-07-20 19:53] LABS: Albumin Globulin Ratio 0.7 (0.9-2); Albumin Level 3.4 gm/dl (3.4-5.0); BUN Creatinine Ratio 12.5 (10-20); Bilirubin,Total 0.3 mg/dl (0.2-1); Calcium 9.1 mg/dl (8.5-10.1); Creatinine Clr Calc Pharmacy 82.3 ml/min; Est GFR (African American) 76.2 ml/min; Est GFR (Non-African American) 65.8 ml/min; Globulin 4.8 gm/dl (2.5-4.0); Total Protein 8.2 gm/dl (6.4-8.2)
[2021-07-20 20:08] LABS: Appearance Urine Clear (Clear); Bacteria Urine Automated Negative (Negative); Bilirubin Urine Negative (Negative); Blood Urine Negative (Negative); Color Urine Yellow; Epithelial Cell Urine Auto >30 /lpf (0-5); Glucose Urine UA 3+ (Negative); Ketones Urine Trace (Negative); Leukocyte Esterase Urine Trace (Negative); Nitrite Urine Negative (Negative); Protein Urine Negative (Negative); RBC Urine Automated 0-4 /hpf (0-4); Specific Gravity Urine 1.043 (1.000-1.030); Urobilinogen Urine Negative (Negative); WBC Urine Automated >30 /hpf (0-5)
[2021-07-20] MEDS ORDERED: SODIUM CHLORIDE 0.9% 1000ML 1,000 ML IV ONE (21:31)
[2021-07-20] MEDS ORDERED: NovoLIN-R INSULIN PER UNIT CHARGE IV STA (21:45)
[2021-07-20] MEDS ORDERED: ONDANSETRON INJ 2 MG/ML 2 ML VIAL IV STA (21:47)
--- NOTE | 2021-07-20 21:58 | Emergency Department Note ---
Impression & Plan Metabolic acidosis, Diabetes mellitus with gastroparesis, Acute hyperglycemia, Vomiting ED Provider Note NAME: COURTNEY HELLER AGE: 46 SEX: F : 1975 ARRIVES VIA: Walk-In INFORMANT: Patient ED PROVIDER(S): Ja Leonard DO CHIEF COMPLAINT: Nausea and vomiting HPI: Patient is a 46-year-old female who presents ER for nausea and vomiting. Symptoms started the past 4 days. Having blood sugars as high as 500. She is a type II diabetic. She admits to nausea and vomiting which has been present during the same time. She does have a history of reflux and gastroparesis. She denies any belly pain. Denies any dysuria, urgency, or frequency. She takes Metformin as well as a long-acting insulin and intermittent Novolin-R. She talked to her illusionist who recommended that she come in for evaluation. No fevers. No other exacerbating or remitting factors. ROS: See above HPI for pertinent positives & negatives. A total of 10 systems reviewed and were otherwise negative. PAST MEDICAL HISTORY:See Below PAST SURGICAL HISTORY:See Below FAMILY HISTORY:See Below SOCIAL HISTORY:See Below HOME MEDICATIONS:See Below ALLERGIES:See Below VITALS:See Below PHYSICAL EXAMINATION: GENERAL: Sitting up in bed, alert, morbidly obese, disheveled EYE EXAM: normal conjunctiva. OROPHARYNX: Dry mucous membranes NECK: supple, no nuchal rigidity, no adenopathy, non-tender LUNGS: Clear to auscultation. Normal chest wall mechanics HEART: no murmurs, S1 normal and S2 normal ABDOMEN: abdomen soft, non-tender, normo-active bowel sounds, no masses, no rebound or guarding. UPPER EXTREMITIES: upper extremities are grossly normal. LOWER EXTREMITIES: No pitting edema. NEURO EXAM: Normal sensorium, cranial nerves II-XII grossly intact, normal speech, no gross weakness of arms, no gross weakness of legs. MEDICAL DECISION MAKING: Patient is a 38-year-old female who presents ER for the above-stated complaint. She is found to be tachycardic and hypothermic. Labs show mild leukocytosis of 13,000. No significant anemia. Blood sugars were elevated in the 300s. She given IV insulin and trended down to 274. LFTs bilirubin was unremarkable. UA with trace ketones. Was contaminated otherwise. Covid was negative. Patient h as no other complaints. No belly pain. She given IV fluids, Zofran and admitted to the hospitalist for further work-up. Triage Nursing notes reviewed. Limited review of prior medical records performed Vital Signs: reviewed and remarkable for HTN Differential diagnosis: Differential diagnoses includes but is not limited to gastritis, peptic ulcer disease, GERD, gallbladder disease, pancreatitis, small bowel obstruction, acute coronary syndrome, pericarditis, ischemic bowel, irritable bowel disease, irritable bowel syndrome, appendicitis, diverticulitis, malignancy, hernia, urinary tract infection, torsion, perforation, trauma, infectious. ER treatment provided: See below Diagnostics interpreted by me: ECG: none Cardiac Monitoring: An order was placed for continuous cardiac monitoring. The monitor shows a rate of 100 with sinus rhythm. Laboratory studies: As stated above and show below. Imaging studies: See below Consultation(s): Discussed with hospitalist for further evaluation Procedures: none Critical Care: None Past Med/Surg History Medical History (Updated 07/21/21 @ 00:30 by Ja Leonard DO) Anxiety Asthma Uses rescue inhaler daily Breathing stable Bipolar disorder Celiac disease Chronic diarrhea Depression Diabetic peripheral neuropathy associated with type 2 diabetes mellitus Fatty infiltration of liver Gastro-esophageal reflux disease without esophagitis Well controlled and stable Gastroparesis Hiatal hernia Hip problem Left hip growth (plans for upcoming surgical removal) Hx of irritable bowel syndrome Hyperlipidemia Hypertension Hypothyroidism Insomnia Migraines Mixed conductive and sensorineural hearing loss of right ear with restricted hearing of left ear Morbid obesity Obstructive sleep apnea Non-compliant with CPAP, could not tolerate Post traumatic stress disorder Sciatica TIA (transient ischemic attack) Remote (several years ago) Urinary hesitancy Surgical History History of anesthesia reaction "Slow to wake" History of arthroscopy of right shoulder History of bladder surgery suburethral sling with hysterectomy (2009) History of cholecystectomy History of colonoscopy History of esophagogastroduodenoscopy (EGD) EGD (02/06/20): MAC at [facility] History of knee surgery Right History of myringotomy bilateral tubes (multiple) Right myringotomy tube (04/09/18): LMA#[address] [facility] (weight at time was 118kg) History of tonsillectomy History of tooth extraction History of tubal ligation S/P epidural steroid injection S/P laparoscopic assisted vaginal hysterectomy (LAV[facility]) Family History Father Myocardial infarction Prostate cancer Diabetes Hypertension Mother , 2008 Myocardial infarction Dementia Diabetes Hypertension Other No significant family history Denies family history of Ovarian cancer Crohn's disease Breast cancer Colorectal cancer Ulcerative colitis Social History Smoking Status: Never smoker Tobacco Type: Cigarettes Second Hand Exposure: No; Hx Alcohol Use: No Hx Substance Use: Yes (hx cocaine and meth use) Substance Use Type Other:: medical marijuana card, uses thc currently Preferred Language: Kinyarwanda Communication Ability: Effective Visual Impairment: No Limitations Hearing Ability: Normal Core Shaper Required: No Beliefs That Will Affect Care: None marital status: Current Living Situation: Family Current Living Situation Comment: 3 oldest kids are adopted, youngest is with his dad. 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 Feels Safe at Home: Yes Childhood Exposure to Second-Hand Smoke: Yes Dental Care, Regularly: Yes Physical Activity Frequency: Does not Exercise Seatbelt Use: always Sunscreen Use: Yes Assistive Devices: Cane, Glasses and Walker Allergies Allergies Allergy/AdvReac Type Severity Reaction Status Date / Time adhesive Allergy Intermediate skin Verified 07/20/21 20:51 redness, itchy bee venom protein (honey bee) Allergy Intermediate red Verified 07/20/21 20:51 welts/swelling > bruising citalopram AdvReac Intermediate jaw pain, Verified 07/20/21 23:15 headaches morphine AdvReac Intermediate localized Verified 07/20/21 20:51 reaction, redness/welts due to IV infiltration pollen extracts AdvReac Intermediate itchy Verified 07/20/21 20:51 eyes, scratchy throat, swollen eyes Home Meds Home Medications Medication Instructions Recorded Confirmed meclizine 25 mg tablet 25 mg PO TID PRN 11/30/19 07/20/21 ipratropium 0.5 mg-albuterol 3 mg 3 ml INH Q8H PRN 01/10/20 07/20/21 (2.5 mg base)/3 mL nebulization soln fluticasone propionate 110 2 puffs INH BID 04/21/20 07/20/21 mcg/actuation HFA aerosol inhaler (Flovent HFA) aspirin 81 mg tablet,delayed 81 mg PO HS 08/31/20 07/20/21 release bupropion HCl 100 mg tablet,12 hr 100 mg PO HS 11/12/20 07/20/21 sustained-release mirtazapine 30 mg tablet 30 mg PO HS 11/12/20 07/20/21 azelastine 137 mcg (0.1 %) nasal 2 spray INTRANASAL DAILY PRN 11/13/20 07/20/21 spray aerosol sucralfate 1 gram tablet 1 g PO ACHS 11/13/20 07/20/21 methocarbamol 500 mg tablet 500 mg PO Q8 PRN 11/30/20 07/20/21 cholecalciferol (vitamin D3) 50 100 mcg PO HS 01/26/21 07/20/21 mcg (2,000 unit) capsule (Vitamin D3) pantoprazole 40 mg tablet,delayed 40 mg PO HS 01/26/21 07/20/21 release (Protonix) triamcinolone acetonide 0.1 % 1 applic TOPICAL HS 01/26/21 07/20/21 lotion Medical Thc 1 dose INHALATION DAILY PRN 04/05/21 07/20/21 benralizumab 30 mg/mL subcutaneous 30 mg SUBCUT UD 04/23/21 07/20/21 syringe (Fasenra) insulin glargine U-300 conc 300 15 unit SUBCUT HS 05/01/21 07/20/21 unit/mL (3 mL) subcutaneous pen (Toujeo Max U-300 SoloStar) insulin regular human 100 unit/mL 15 - 30 unit SUBCUT TIDM 05/01/21 07/20/21 (3 mL) subcutaneous pen (Novolin R Flexpen) metformin 500 mg tablet,extended 1,000 mg PO BID 05/08/21 07/20/21 release 24 hr acetaminophen 500 mg tablet 500 mg PO Q6H PRN 06/12/21 07/20/21 (Acetaminophen Extra Strength) gabapentin 300 mg capsule 300 mg PO BID 07/16/21 07/20/21 Previous Rx's Medication Instructions Recorded ketorolac 10 mg tablet 10 mg PO Q8H PRN #10 tab 07/13/20 sennosides 8.6 mg-docusate sodium 1 - 2 tab-cap PO BID PRN #60 tab 07/20/20 50 mg tablet (Senokot-S) naproxen 500 mg tablet 500 mg PO DAILY PRN #30 tab 10/05/20 polyethylene glycol 3350 17 8.5 g PO DAILY PRN #238 g 10/08/20 gram/dose oral powder (Miralax) cyclobenzaprine 10 mg tablet 10 mg PO HS #20 tab 11/17/20 budesonide-formoterol HFA 160 2 inh INHALATION BID #1 inhaler 01/27/21 mcg-4.5 mcg/actuation aerosol inhaler (Symbicort) epinephrine 0.3 mg/0.3 mL 0.3 mg IM DIRECTED PRN #1 ea 01/27/21 injection, auto-injector (EpiPen) tiotropium bromide 1.25 2 puff INHALATION QAM #4 g 01/27/21 mcg/actuation mist for inhalation (Spiriva Respimat) atorvastatin 20 mg tablet (Lipitor) 20 mg PO HS #90 tab 02/02/21 prochlorperazine maleate 5 mg 5 mg PO Q8H PRN #10 tab 02/20/21 tablet (Compazine) albuterol sulfate 2.5 mg INHALATION Q4H PRN #75 ml 02/25/21 rifaximin 550 mg tablet (Xifaxan) 550 mg PO TID 14 Days #42 tab 03/02/21 ondansetron 4 mg disintegrating 4 mg PO Q8H PRN #7 tab 03/15/21 tablet levothyroxine 75 mcg tablet 75 mcg PO HS #90 tab 05/20/21 (Synthroid) dicyclomine 10 mg capsule 10 mg PO TID PRN #90 cap 05/21/21 lisinopril 10 mg tablet (Zestril) 10 mg PO HS #90 tab 07/02/21 fluticasone propionate 50 1 spray INTRANASAL Q12H #15.8 ml 07/08/21 mcg/actuation nasal spray,suspension (Flonase Allergy Relief) Magic Mouthwash 300 mL mouthwash 15 ml MUCOUS MEMBRANE .q 6 hours 07/14/21 PRN #300 ml cholestyramine (with sugar) 4 gram 4 g PO BID PRN #60 ea 07/14/21 powder for susp in a packet methylprednisolone 4 mg tablets in 4 mg PO .COMPLEX #21 ea 07/16/21 a dose pack (Medrol (Nimesh)) sumatriptan succinate 6 mg/0.5 mL 6 mg SUBCUT .COMPLEX #4 ml 07/16/21 subcutaneous pen injector terconazole 0.4 % vaginal cream 1 appful VAGINAL ONCE #45 g 07/16/21 Results & Data (ED) Vital Signs Vital Signs - 24 hr 07/20/21 18:55 07/20/21 21:04 07/20/21 21:59 Temperature 35.6 C L Temperature Source Temporal Artery Scan Pulse Rate 110 H Pulse Rate [Radial] 100 H 100 H Respiratory Rate 16 22 20 Respiratory Effort / Characteristics Non-Labored Respiratory Depth Normal Blood Pressure 155/102 H Blood Pressure [Right Arm] 153/90 H 140/96 Blood Pressure Mean 119 Blood Pressure Mean [Right Arm] 111 110 Blood Pressure Position Sitting Pulse Oximetry 92 96 97 Oxygen Delivery Method Room Air Room Air Room Air Sepsis Recent Fever Within 48 Hours No Sepsis New/Unexplained Change in Mental Status No Sepsis Action Taken by Nursing No Action Required Laboratory Data Result diagrams: 07/20/21 19:05 07/20/21 23:17 Lab Results 07/20/21 07/20/21 07/20/21 Range/Units 19:05 19:05 20:00 WBC 13.90 H (4.8-10.8) K/uL RBC 5.15 (4.2-5.4) M/uL Hgb 15.4 (12.0-16.0) g/dL Hct 45.0 (37-47) % MCV 87.4 (80-100) fL MCH 29.9 (25-34) pg MCHC 34.2 (32-36) g/dL RDW Std Deviation 40.6 (36.4-46.3) fL RDW Coeff of [place] 12.7 (11.5-14.5) % Plt Count 349 (130-400) K/uL MPV 10.0 (7.4-10.4) fL Immature Gran % (Auto) 0.4 % Neut % (Auto) 68.0 % Lymph % (Auto) 25.0 % [place] % (Auto) 6.5 % Eos % (Auto) 0.0 % Baso % (Auto) 0.1 % Neut # (Auto) 9.43 H (1.4-6.5) K/uL Lymph # (Auto) 3.48 H (1.2-3.4) K/uL [place] # (Auto) 0.91 H (0.11-0.59) K/uL Eos # (Auto) 0.00 (0-0.5) K/uL Baso # (Auto) 0.02 (0-0.2) K/uL Immature Gran # (Auto) 0.06 H (0.00-0.02) K/uL VBG pH (7.36-7.41) Sodium 132 L (136-145) mmol/L Potassium 3.6 (3.5-5.1) mmol/L Chloride 98 (98-107) mmol/L Carbon Dioxide 20 L (21-32) mmol/L Anion Gap 13.0 H (3-11) BUN 13 (7-18) mg/dl Creatinine 1.01 (0.6-1.2) mg/dl Est Cr Clr Drug Dosing 82.3 ml/min Est GFR ( Amer) 76.2 ml/min Est GFR (Non-Af Amer) 65.8 ml/min BUN/Creatinine Ratio 12.5 (10-20) Glucose 379 H* (70-99) mg/dl POC Glucose (70-99) mg/dl Calcium 9.1 (8.5-10.1) mg/dl Phosphorus (2.5-4.9) mg/dl Magnesium (1.8-2.4) mg/dl Total Bilirubin 0.3 (0.2-1) mg/dl AST 38 H (15-37) U/L ALT 42 (12-78) U/L Alkaline Phosphatase 134 H (45-117) U/L Total Protein 8.2 (6.4-8.2) gm/dl Albumin 3.4 (3.4-5.0) gm/dl Globulin 4.8 H (2.5-4.0) gm/dl Albumin/Globulin Ratio 0.7 L (0.9-2) Beta-Hydroxybutyric Acd (0.2-2.81) mg/dl Specimen Hemolysis Urine Color Yellow Urine Appearance Clear (Clear) Urine pH 5.0 (4.5-7.5) Ur Specific [place] 1.043 H (1.000-1.030) Urine Protein Negative (Negative) Urine Glucose (UA) 3+ H (Negative) Urine Ketones Trace H (Negative) Urine Blood Negative (Negative) Urine Nitrite Negative (Negative) Urine Bilirubin Negative (Negative) Urine Urobilinogen Negative (Negative) Ur Leukocyte Esterase Trace H (Negative) Urine WBC (Auto) >30 H (0-5) /hpf Urine RBC (Auto) 0-4 (0-4) /hpf U Hyaline Cast (Auto) 1-5 (0-5) /lpf U Epithel Cells (Auto) >30 H (0-5) /lpf Urine Bacteria (Auto) Negative (Negative) COVID-19 Eval Order SARS-CoV-2 (PCR) (Negative) 07/20/21 07/20/21 07/20/21 Range/Units 20:57 21:54 21:57 WBC (4.8-10.8) K/uL RBC (4.2-5.4) M/uL Hgb (12.0-16.0) g/dL Hct (37-47) % MCV (80-100) fL MCH (25-34) pg MCHC (32-36) g/dL RDW Std Deviation (36.4-46.3) fL RDW Coeff of Weston (11.5-14.5) % Plt Count (130-400) K/uL MPV (7.4-10.4) fL Immature Gran % (Auto) % Neut % (Auto) % Lymph % (Auto) % [place] % (Auto) % Eos % (Auto) % Baso % (Auto) % Neut # (Auto) (1.4-6.5) K/uL Lymph # (Auto) (1.2-3.4) K/uL [place] # (Auto) (0.11-0.59) K/uL Eos # (Auto) (0-0.5) K/uL Baso # (Auto) (0-0.2) K/uL Immature Gran # (Auto) (0.00-0.02) K/uL VBG pH (7.36-7.41) Sodium (136-145) mmol/L Potassium (3.5-5.1) mmol/L Chloride (98-107) mmol/L Carbon Dioxide (21-32) mmol/L Anion Gap (3-11) BUN (7-18) mg/dl Creatinine (0.6-1.2) mg/dl Est Cr Clr Drug Dosing ml/min Est GFR ( Amer) ml/min Est GFR (Non-Af Amer) ml/min BUN/Creatinine Ratio (10-20) Glucose (70-99) mg/dl POC Glucose 336 H* 332 H* (70-99) mg/dl Calcium (8.5-10.1) mg/dl Phosphorus (2.5-4.9) mg/dl Magnesium (1.8-2.4) mg/dl Total Bilirubin (0.2-1) mg/dl AST (15-37) U/L ALT (12-78) U/L Alkaline Phosphatase (45-117) U/L Total Protein (6.4-8.2) gm/dl Albumin (3.4-5.0) gm/dl Globulin (2.5-4.0) gm/dl Albumin/Globulin Ratio (0.9-2) Beta-Hydroxybutyric Acd (0.2-2.81) mg/dl Specimen Hemolysis Urine Color Urine Appearance (Clear) Urine pH (4.5-7.5) Ur Specific [place] (1.000-1.030) Urine Protein (Negative) Urine Glucose (UA) (Negative) Urine Ketones (Negative) Urine Blood (Negative) Urine Nitrite (Negative) Urine Bilirubin (Negative) Urine Urobilinogen (Negative) Ur Leukocyte Esterase (Negative) Urine WBC (Auto) (0-5) /hpf Urine RBC (Auto) (0-4) /hpf U Hyaline Cast (Auto) (0-5) /lpf U Epithel Cells (Auto) (0-5) /lpf Urine Bacteria (Auto) (Negative) COVID-19 Eval Order Covid19 at [facility] SARS-CoV-2 (PCR) (Negative) 07/20/21 07/20/21 07/20/21 Range/Units 21:57 23:17 23:17 WBC (4.8-10.8) K/uL RBC (4.2-5.4) M/uL Hgb (12.0-16.0) g/dL Hct (37-47) % MCV (80-100) fL MCH (25-34) pg MCHC (32-36) g/dL RDW Std Deviation (36.4-46.3) fL RDW Coeff of Weston (11.5-14.5) % Plt Count (130-400) K/uL MPV (7.4-10.4) fL Immature Gran % (Auto) % Neut % (Auto) % Lymph % (Auto) % [place] % (Auto) % Eos % (Auto) % Baso % (Auto) % Neut # (Auto) (1.4-6.5) K/uL Lymph # (Auto) (1.2-3.4) K/uL [place] # (Auto) (0.11-0.59) K/uL Eos # (Auto) (0-0.5) K/uL Baso # (Auto) (0-0.2) K/uL Immature Gran # (Auto) (0.00-0.02) K/uL VBG pH 7.40 (7.36-7.41) Sodium 136 (136-145) mmol/L Potassium 3.5 (3.5-5.1) mmol/L Chloride 100 (98-107) mmol/L Carbon Dioxide 27 (21-32) mmol/L Anion Gap 9.0 (3-11) BUN 13 (7-18) mg/dl Creatinine 0.73 (0.6-1.2) mg/dl Est Cr Clr Drug Dosing 113.9 ml/min Est GFR ( Amer) 112.9 ml/min Est GFR (Non-Af Amer) 97.4 ml/min BUN/Creatinine Ratio 18.2 (10-20) Glucose 296 H (70-99) mg/dl POC Glucose (70-99) mg/dl Calcium 8.4 L (8.5-10.1) mg/dl Phosphorus 2.5 (2.5-4.9) mg/dl Magnesium 1.7 L (1.8-2.4) mg/dl Total Bilirubin (0.2-1) mg/dl AST (15-37) U/L ALT (12-78) U/L Alkaline Phosphatase (45-117) U/L Total Protein (6.4-8.2) gm/dl Albumin (3.4-5.0) gm/dl Globulin (2.5-4.0) gm/dl Albumin/Globulin Ratio (0.9-2) Beta-Hydroxybutyric Acd (0.2-2.81) mg/dl Specimen Hemolysis Urine Color Urine Appearance (Clear) Urine pH (4.5-7.5) Ur Specific [place] (1.000-1.030) Urine Protein (Negative) Urine Glucose (UA) (Negative) Urine Ketones (Negative) Urine Blood (Negative) Urine Nitrite (Negative) Urine Bilirubin (Negative) Urine Urobilinogen (Negative) Ur Leukocyte Esterase (Negative) Urine WBC (Auto) (0-5) /hpf Urine RBC (Auto) (0-4) /hpf U Hyaline Cast (Auto) (0-5) /lpf U Epithel Cells (Auto) (0-5) /lpf Urine Bacteria (Auto) (Negative) COVID-19 Eval Order SARS-CoV-2 (PCR) NEGATIVE (Negative) 07/20/21 Range/Units 23:24 WBC (4.8-10.8) K/uL RBC (4.2-5.4) M/uL Hgb (12.0-16.0) g/dL Hct (37-47) % MCV (80-100) fL MCH (25-34) pg MCHC (32-36) g/dL RDW Std Deviation (36.4-46.3) fL RDW Coeff of [place] (11.5-14.5) % Plt Count (130-400) K/uL MPV (7.4-10.4) fL Immature Gran % (Auto) % Neut % (Auto) % Lymph % (Auto) % [place] % (Auto) % Eos % (Auto) % Baso % (Auto) % Neut # (Auto) (1.4-6.5) K/uL Lymph # (Auto) (1.2-3.4) K/uL [place] # (Auto) (0.11-0.59) K/uL Eos # (Auto) (0-0.5) K/uL Baso # (Auto) (0-0.2) K/uL Immature Gran # (Auto) (0.00-0.02) K/uL VBG pH (7.36-7.41) Sodium (136-145) mmol/L Potassium (3.5-5.1) mmol/L Chloride (98-107) mmol/L Carbon Dioxide (21-32) mmol/L Anion Gap (3-11) BUN (7-18) mg/dl Creatinine (0.6-1.2) mg/dl Est Cr Clr Drug Dosing ml/min Est GFR ( Amer) ml/min Est GFR (Non-Af Amer) ml/min BUN/Creatinine Ratio (10-20) Glucose (70-99) mg/dl POC Glucose 274 H (70-99) mg/dl Calcium (8.5-10.1) mg/dl Phosphorus (2.5-4.9) mg/dl Magnesium (1.8-2.4) mg/dl Total Bilirubin (0.2-1) mg/dl AST (15-37) U/L ALT (12-78) U/L Alkaline Phosphatase (45-117) U/L Total Protein (6.4-8.2) gm/dl Albumin (3.4-5.0) gm/dl Globulin (2.5-4.0) gm/dl Albumin/Globulin Ratio (0.9-2) Beta-Hydroxybutyric Acd (0.2-2.81) mg/dl Specimen Hemolysis Urine Color Urine Appearance (Clear) Urine pH (4.5-7.5) Ur Specific [place] (1.000-1.030) Urine Protein (Negative) Urine Glucose (UA) (Negative) Urine Ketones (Negative) Urine Blood (Negative) Urine Nitrite (Negative) Urine Bilirubin (Negative) Urine Urobilinogen (Negative) Ur Leukocyte Esterase (Negative) Urine WBC (Auto) (0-5) /hpf Urine RBC (Auto) (0-4) /hpf U Hyaline Cast (Auto) (0-5) /lpf U Epithel Cells (Auto) (0-5) /lpf Urine Bacteria (Auto) (Negative) COVID-19 Eval Order SARS-CoV-2 (PCR) (Negative) Administered Medications Insulin Human Regular 250 (units/ Sodium Chloride) 250 mls @ 10 mls/hr IV .Q24H BRANDON; Protocol Stop: 08/19/21 23:14 Last Admin: 07/21/21 00:04 Dose: 10 units/hr, 10 mls/hr Documented by: [id number] Cosigned by: [id number] Potassium Chloride/Sodium Chloride (1/2 Nss + 20meq Kcl 1000ml) 20 meq in 1,000 mls @ 250 mls/hr IV .Q4H BRANDON Stop: 08/19/21 23:44 Last Admin: 07/21/21 00:04 Dose: 250 mls/hr Documented by: [id number] Discontinued Medications Sodium Chloride (Nss 1000ml) 1,000 mls @ 999 mls/hr IV .Q1H1M ONE Stop: 07/20/21 22:31 Last Infusion: 07/20/21 22:48 Dose: 0 mls/hr Documented by: [id number] Admin: 07/20/21 21:46 Dose: 999 mls/hr Documented by: [id number] Insulin Human Regular (Novolin-R Insulin Per Unit Charge) 5 units IV NOW STA Stop: 07/20/21 21:46 Last Admin: 07/20/21 21:54 Dose: 5 units Documented by: [id number] Cosigned by: [id number] Ondansetron HCl (Ondansetron Inj 2 Mg/Ml 2 Ml Vial) 4 mg IV NOW STA Stop: 07/20/21 21:48 Last Admin: 07/20/21 21:53 Dose: 4 mg Documented by: [id number] Discharge Plan Visit Data Chief Complaint: Hyperglycemia Stated Complaint: THROWING UP/SUGAR IN THE 400 - 500'S ED Provider: Ja Leonard Discharge Problem: Metabolic acidosis, Diabetes mellitus with gastroparesis, Acute hyperglycemia, Vomiting Forms Stand Alone Forms: [facility] Guest of a Guest Prescriptions Prescriptions: No Action naproxen 500 mg tablet 500 mg PO DAILY PRN (Reason: before activity to prevent headache) Qty: 30 RF: 1 cyclobenzaprine 10 mg tablet 10 mg PO HS Qty: 20 RF: 0 atorvastatin [Lipitor] 20 mg tablet 20 mg PO HS Qty: 90 RF: 3 albuterol sulfate 2.5 mg /3 mL (0.083 %) solution for nebulization 2.5 mg inhalation Q4H PRN (Reason: shortness of breath or wheezing) Qty: 75 RF: 0 levothyroxine [Synthroid] 75 mcg tablet 75 mcg PO HS Qty: 90 RF: 3 dicyclomine 10 mg capsule 10 mg PO TID PRN (Reason: IBS) Qty: 90 RF: 2 lisinopril [Zestril] 10 mg tablet 10 mg PO HS Qty: 90 RF: 1 fluticasone propionate [Flonase Allergy Relief] 50 mcg/actuation spray,suspension 1 spray intranasal Q12H Qty: 15.8 RF: 1 cholestyramine (with sugar) 4 gram powder in packet 4 g PO BID PRN (Reason: ..) Qty: 60 RF: 3 terconazole 0.4 % cream 1 appful vaginal ONCE Qty: 45 RF: 0 methylprednisolone [Medrol (Nimesh)] 4 mg tablets,dose pack 4 mg PO .COMPLEX Qty: 21 RF: 0 sumatriptan succinate 6 mg/0.5 mL pen injector 6 mg subcut .COMPLEX Qty: 4 RF: 3 gabapentin 300 mg capsule 300 mg PO BID RF: 0 ketorolac 10 mg tablet 10 mg PO Q8H PRN (Reason: pain) Qty: 10 RF: 0 budesonide-formoterol [Symbicort] 160-4.5 mcg/actuation HFA aerosol inhaler 2 inh inhalation BID Qty: 1 RF: 6 epinephrine [EpiPen] 0.3 mg/0.3 mL auto-injector 0.3 mg IM DIRECTED PRN (Reason: Allergic Reaction) Qty: 1 RF: 3 Spiriva Respimat 1.25 mcg/actuation mist 2 puff inhalation QAM Qty: 4 RF: 11 polyethylene glycol 3350 [Miralax] 17 gram/dose powder 8.5 g PO DAILY PRN (Reason: constipation) Qty: 238 RF: 5 Xifaxan 550 mg tablet 550 mg PO TID 14 Days Qty: 42 RF: 0 Magic Mouthwash 300 mL mouthwash 15 ml mucous membrane .q 6 hours PRN (Reason: mouth pain) Qty: 300 RF: 1 ipratropium-albuterol 0.5 mg-3 mg(2.5 mg base)/3 mL solution for nebulization 3 ml INH Q8H PRN (Reason: Wheezing) RF: 0 sennosides-docusate sodium [Senokot-S] 8.6-50 mg tablet 1 - 2 tab-cap PO BID PRN (Reason: constipation) Qty: 60 RF: 2 aspirin 81 mg Tablet,Delayed Release (Dr/Ec) 81 mg PO HS RF: 0 meclizine 25 mg tablet 25 mg PO TID PRN (Reason: Dizziness) RF: 0 Flovent HFA 110 mcg/actuation HFA aerosol inhaler 2 puffs INH BID RF: 0 methocarbamol 500 mg tablet 500 mg PO Q8 PRN (Reason: Muscle Spasm) RF: 0 cholecalciferol (vitamin D3) [Vitamin D3] 50 mcg (2,000 unit) Capsule 100 mcg PO HS RF: 0 pantoprazole [Protonix] 40 mg tablet,delayed release (DR/EC) 40 mg PO HS RF: 0 triamcinolone acetonide 0.1 % lotion 1 applic topical HS RF: 0 prochlorperazine maleate [Compazine] 5 mg tablet 5 mg PO Q8H PRN (Reason: nausea and vomiting) Qty: 10 RF: 0 Medical Thc 1 dose inhalation DAILY PRN (Reason: Anxiety) RF: 0 Novolin R Flexpen 100 unit/mL (3 mL) insulin pen 15 - 30 unit SUBCUT TIDM RF: 0 Toujeo Max U-300 SoloStar 300 unit/mL (3 mL) insulin pen 15 unit SUBCUT HS RF: 0 metformin 500 mg tablet extended release 24 hr 1,000 mg PO BID RF: 0 acetaminophen [Acetaminophen Extra Strength] 500 mg Tablet 500 mg PO Q6H PRN (Reason: Pain) RF: 0 mirtazapine 30 mg tablet 30 mg PO HS RF: 0 bupropion HCl 100 mg tablet sustained-release 12 hr 100 mg PO HS RF: 0 sucralfate 1 gram tablet 1 g PO ACHS RF: 0 azelastine 137 mcg (0.1 %) aerosol,spray 2 spray INTRANASAL DAILY PRN (Reason: Congestion) RF: 0 ondansetron 4 mg tablet,disintegrating 4 mg PO Q8H PRN (Reason: nausea and vomiting) Qty: 7 RF: 0 Fasenra 30 mg/mL syringe 30 mg subcut UD RF: 0 Referrals Referrals: Lilibeth Sharma MD [Primary Care Provider] - Discharge Problem: Vomiting Qualifiers: Vomiting type: unspecified Vomiting Intractability: unspecified Nausea presence: unspecified Qualified Code(s): R11.10 - Vomiting, unspecified
--- NOTE | 2021-07-20 22:00 | History & Physical Report ---
Date of Service July 20, 2021 Assessment & Plan (1) Acute hyperglycemia: Plan: 46 yo F chronically ill patient with extensive PMH including IDDM2, bipolar disorder, GERD, Asthma, ARIELLE, admitted for management of hyperglycemia/borderline DKA. DKA/Hyperglycemia - BSG up to 400s/500s at home - initially 379 in ER with gap 13.0. - beta-hydroxybutyrate sample hemolyzed, reordered. vbg 7.40 - pt reports multiple days of elevated BSGs 4-500 despite managing insulin treatments, and frequent emesis and diarrhea likely worsening sugar control. - insulin drip initiated given borderline appearance of DKA and patient's clinical history of having worsening BSG control after initial improvement - 1/2NS + K at 250 cc/hr - BMP, Mag, Phos Q4h - a1c in am (last 7.4 in 04/24) - follows with Dr. Nagy - dexcom likely not working appropriately despite new sensor-- will require addressing by diabetic education to prevent re-admission/continued elevated BSG at home. consult placed. - home regimen: toujeo U300 15u QHS, Novolin Regular insulin 15-30u with meals Abdominal Pain w/ Gastroparesis - hx gastroparesis, acute worsening in past 2-3 weeks with nocturnal emesis and headaches - CT A/P wo pancreatitis. hx cholecystectomy. Lipase 1309 - zofran for nausea - EGD in 04/24 revealed chronic gastritis wo H. Pylori - follows with [facility]/Dr. Adams - continue rifaximin, senna/docusate, pantoprazole, cholestyramine for ongoing IBS/GERD/Gastroparesis control - consider initiation of reglan Chronic Conditions Bipolar disorder: continue bupropion, mirtazipine, Asthma/Allergies: cont spiriva, flonse, flovent, symbicort, azelastine HLD: cont ASA, lipitor ARIELLE: not on CPAP at home. 'mild' Peripheral Neuropathy: reports severe neuropathy controlled by lyrica (script recently discontinued by ordering provider) as well as panic attacks controlled by gabapentin? Hypothyroidism: cont levothyroxine HTN: cont lisinopril DVT ppx: heparin FEN/GI: NPO while on DKA protocol Bowel regimen: docusate/senna as above Code Status: Full Code Dispo: Med/TEle (2) Vomiting: (3) Allergic rhinitis: (4) Bipolar disorder: (5) Gastro-esophageal reflux disease without esophagitis: (6) Obstructive sleep apnea: (7) Morbid obesity: (8) Hypothyroidism: (9) Diabetes mellitus with gastroparesis: History of Present Illness Primary Care Provider: Lilibeth Sharma MD Patient is a 46-year-old female with a past medical history of insulin- dependent diabetes, ARIELLE, hypothyroidism, hyperlipidemia, bipolar disorder, IBS, GERD, migraines, severe allergies, history of mastoiditis with gastroparesis who presents to the emergency department at the instruction of her physician for having elevated blood sugars at home. She notes that for the past few weeks she has been having multiple episodes of nighttime emesis that wakes her up from sleep. Over the last few days this is progressed to also include daytime emesis and she has been unable to keep much food down. She states that regardless of whether or not she takes her insulin her blood sugars have been in the 400's - 500's. She also states that her Dexcom has been reading blood sugars in the 300s whereas her fingerstick checks have been much higher. Changed to the sensor 2 days ago. She does have baseline abdominal pain and says this is worse just before she vomits. She is also had profuse mucousy diarrhea. She denies any fevers or chills. She has been experiencing increased thirst and increased urination secondary to that. She denies any dysuria. She does attest to having had blurry vision and headaches with the elevated blood sugar. She states that she had some chest tightness with improved with taking her inhaler regimen. She denies any chest pain or chest pressure. She does have longstanding peripheral neuropathy which worsens at nighttime but says that this has not gotten worse the last couple of days. She has received both of her Covid vaccinations. She recently was started on a Medrol Dosepak by her PCP supposedly to help with the ongoing work-up of oral swelling and burning that she has been experiencing. She says she took the pack for the last 2 days and has experienced no improvement in symptoms from this. She describes the pain as being mostly "[place]", increased thirst, burning of her oral mucosa when drinking carbonated beverages/water/milk. Allergies Allergy/AdvReac Type Severity Reaction Status Date / Time adhesive Allergy Intermediate skin Verified 07/20/21 20:51 redness, itchy bee venom protein (honey bee) Allergy Intermediate red Verified 07/20/21 20:51 welts/swelling > bruising citalopram AdvReac Intermediate jaw pain, Verified 07/20/21 23:15 headaches morphine AdvReac Intermediate localized Verified 07/20/21 20:51 reaction, redness/welts due to IV infiltration pollen extracts AdvReac Intermediate itchy Verified 07/20/21 20:51 eyes, scratchy throat, swollen eyes Home Medications Medication Instructions Recorded Confirmed Type meclizine 25 mg tablet 25 mg PO TID PRN 11/30/19 07/20/21 History ipratropium 0.5 mg-albuterol 3 mg 3 ml INH Q8H PRN 01/10/20 07/20/21 History (2.5 mg base)/3 mL nebulization soln fluticasone propionate 110 2 puffs INH BID 04/21/20 07/20/21 History mcg/actuation HFA aerosol inhaler (Flovent HFA) ketorolac 10 mg tablet 10 mg PO Q8H PRN #10 tab 07/13/20 07/20/21 Rx sennosides 8.6 mg-docusate sodium 1 - 2 tab-cap PO BID PRN #60 tab 07/20/20 07/20/21 Rx 50 mg tablet (Senokot-S) aspirin 81 mg tablet,delayed 81 mg PO HS 08/31/20 07/20/21 History release naproxen 500 mg tablet 500 mg PO DAILY PRN #30 tab 10/05/20 07/20/21 Rx polyethylene glycol 3350 17 8.5 g PO DAILY PRN #238 g 10/08/20 07/20/21 Rx gram/dose oral powder (Miralax) bupropion HCl 100 mg tablet,12 hr 100 mg PO HS 11/12/20 07/20/21 History sustained-release mirtazapine 30 mg tablet 30 mg PO HS 11/12/20 07/20/21 History azelastine 137 mcg (0.1 %) nasal 2 spray INTRANASAL DAILY PRN 11/13/20 07/20/21 History spray aerosol sucralfate 1 gram tablet 1 g PO ACHS 11/13/20 07/20/21 History cyclobenzaprine 10 mg tablet 10 mg PO HS #20 tab 11/17/20 07/20/21 Rx methocarbamol 500 mg tablet 500 mg PO Q8 PRN 11/30/20 07/20/21 History cholecalciferol (vitamin D3) 50 100 mcg PO HS 01/26/21 07/20/21 History mcg (2,000 unit) capsule (Vitamin D3) pantoprazole 40 mg tablet,delayed 40 mg PO HS 01/26/21 07/20/21 History release (Protonix) triamcinolone acetonide 0.1 % 1 applic TOPICAL HS 01/26/21 07/20/21 History lotion budesonide-formoterol HFA 160 2 inh INHALATION BID #1 inhaler 01/27/21 07/20/21 Rx mcg-4.5 mcg/actuation aerosol inhaler (Symbicort) epinephrine 0.3 mg/0.3 mL 0.3 mg IM DIRECTED PRN #1 ea 01/27/21 07/20/21 Rx injection, auto-injector (EpiPen) tiotropium bromide 1.25 2 puff INHALATION QAM #4 g 01/27/21 07/20/21 Rx mcg/actuation mist for inhalation (Spiriva Respimat) atorvastatin 20 mg tablet (Lipitor) 20 mg PO HS #90 tab 02/02/21 07/20/21 Rx prochlorperazine maleate 5 mg 5 mg PO Q8H PRN #10 tab 02/20/21 07/20/21 Rx tablet (Compazine) albuterol sulfate 2.5 mg INHALATION Q4H PRN #75 ml 02/25/21 07/20/21 Rx rifaximin 550 mg tablet (Xifaxan) 550 mg PO TID 14 Days #42 tab 03/02/21 07/20/21 Rx ondansetron 4 mg disintegrating 4 mg PO Q8H PRN #7 tab 03/15/21 07/20/21 Rx tablet Medical Thc 1 dose INHALATION DAILY PRN 04/05/21 07/20/21 History benralizumab 30 mg/mL subcutaneous 30 mg SUBCUT UD 04/23/21 07/20/21 History syringe (Fasenra) insulin glargine U-300 conc 300 15 unit SUBCUT HS 05/01/21 07/20/21 History unit/mL (3 mL) subcutaneous pen (Toujeo Max U-300 SoloStar) insulin regular human 100 unit/mL 15 - 30 unit SUBCUT TIDM 05/01/21 07/20/21 History (3 mL) subcutaneous pen (Novolin R Flexpen) metformin 500 mg tablet,extended 1,000 mg PO BID 05/08/21 07/20/21 History release 24 hr levothyroxine 75 mcg tablet 75 mcg PO HS #90 tab 05/20/21 07/20/21 Rx (Synthroid) dicyclomine 10 mg capsule 10 mg PO TID PRN #90 cap 05/21/21 07/20/21 Rx acetaminophen 500 mg tablet 500 mg PO Q6H PRN 06/12/21 07/20/21 History (Acetaminophen Extra Strength) lisinopril 10 mg tablet (Zestril) 10 mg PO HS #90 tab 07/02/21 07/20/21 Rx fluticasone propionate 50 1 spray INTRANASAL Q12H #15.8 ml 07/08/21 07/20/21 Rx mcg/actuation nasal spray,suspension (Flonase Allergy Relief) Magic Mouthwash 300 mL mouthwash 15 ml MUCOUS MEMBRANE .q 6 hours 07/14/21 07/20/21 Rx PRN #300 ml cholestyramine (with sugar) 4 gram 4 g PO BID PRN #60 ea 07/14/21 07/20/21 Rx powder for susp in a packet gabapentin 300 mg capsule 300 mg PO BID 07/16/21 07/20/21 History methylprednisolone 4 mg tablets in 4 mg PO .COMPLEX #21 ea 07/16/21 07/20/21 Rx a dose pack (Medrol (Nimesh)) sumatriptan succinate 6 mg/0.5 mL 6 mg SUBCUT .COMPLEX #4 ml 07/16/21 07/20/21 Rx subcutaneous pen injector terconazole 0.4 % vaginal cream 1 appful VAGINAL ONCE #45 g 07/16/21 07/20/21 Rx Past Med/Surg History Medical History (Updated 07/21/21 @ 04:04 by Emely Reza MD) Anxiety Asthma Uses rescue inhaler daily Breathing stable Bipolar disorder Celiac disease Chronic diarrhea Depression Diabetic peripheral neuropathy associated with type 2 diabetes mellitus Fatty infiltration of liver Gastro-esophageal reflux disease without esophagitis Well controlled and stable Gastroparesis Hiatal hernia Hip problem Left hip growth (plans for upcoming surgical removal) Hx of irritable bowel syndrome Hyperlipidemia Hypertension Hypothyroidism Insomnia Migraines Mixed conductive and sensorineural hearing loss of right ear with restricted hearing of left ear Morbid obesity Obstructive sleep apnea Non-compliant with CPAP, could not tolerate Post traumatic stress disorder Sciatica TIA (transient ischemic attack) Remote (several years ago) Urinary hesitancy Surgical History History of anesthesia reaction "Slow to wake" History of arthroscopy of right shoulder History of bladder surgery suburethral sling with hysterectomy (2009) History of cholecystectomy History of colonoscopy History of esophagogastroduodenoscopy (EGD) EGD (02/06/20): MAC at [facility] History of knee surgery Right History of myringotomy bilateral tubes (multiple) Right myringotomy tube (04/09/18): [place] [facility] [place] at [place] 118[place]) History of tonsillectomy History of tooth extraction History of tubal ligation S/P epidural steroid injection S/P laparoscopic assisted vaginal hysterectomy ([facility]) Family History Father Myocardial infarction Prostate cancer Diabetes Hypertension Mother , 2008 Myocardial infarction Dementia Diabetes Hypertension Other No significant family history Denies family history of Ovarian cancer Crohn's disease Breast cancer Colorectal cancer Ulcerative colitis Social History Smoking Status: Never smoker Tobacco Type: Cigarettes Second Hand Exposure: No; Hx Alcohol Use: No Hx Substance Use: Yes (hx cocaine and meth use) Substance Use Type Other:: medical marijuana card, uses thc currently Preferred Language: Ukrainian Communication Ability: Effective Visual Impairment: No Limitations Hearing Ability: Normal 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 Feels Safe at Home: Yes Childhood Exposure to Second-Hand Smoke: Yes Dental Care, Regularly: Yes Physical Activity Frequency: Does not Exercise Seatbelt Use: always Sunscreen Use: Yes Assistive Devices: Cane, Glasses and Walker Review of Systems Constitutional: + fatigue; no fever, no chills and no body aches Respiratory: no cough and no dyspnea Cardiovascular: no chest pain, no dyspnea and no edema Gastrointestinal: + abdominal pain, + bloating, + nausea, + vomiting and + diarrhea/loose stools; no coffee ground emesis, no cramping, no constipation and no blood in stools Genitourinary: + urinary frequency; no dysuria Neurologic: + tingling, + numbness and + restless legs; no dizziness and no confusion Endocrine: + polydipsia and + polyuria Physical Exam Physical Exam: Constitutional: obese, sitting in bed in NAD Eyes: EOMI, pupils equal and reactive bilaterally, no scleral icterus Cardiac: RRR, no murmurs, gallops or rubs. Normal S1, S2 Pulm: CTA BL, no wheezes, rhonchi, crackles or rubs, moving air well throughout both lungs Abd: soft, distended, TTP throughout, no rebound or guarding Extremities: 2+ peripheral pulses, no edema Neuro: no focal deficits, moving all 4 limbs, A&Ox3 Results & Data Results & Data ([facility]) Vital Signs (Past 12 Hours) Vital Signs Temp Pulse Pulse Resp BP BP Pulse Ox 07/20/21 21:04 100 H 22 153/90 H 96 07/20/21 18:55 35.6 C L 110 H 16 155/102 H 92 Laboratory Results Laboratory Results WBC 13.90 K/uL (4.8-10.8) H 07/20/21 19:05 RBC 5.15 M/uL (4.2-5.4) 07/20/21 19:05 Hgb 15.4 g/dL (12.0-16.0) 07/20/21 19:05 Hct 45.0 % (37-47) 07/20/21 19:05 MCV 87.4 fL (80-100) 07/20/21 19:05 MCH 29.9 pg (25-34) 07/20/21 19:05 MCHC 34.2 g/dL (32-36) 07/20/21 19:05 RDW Std Deviation 40.6 fL (36.4-46.3) 07/20/21 19:05 RDW Coeff of [place] 12.7 % (11.5-14.5) 07/20/21 19:05 Plt Count 349 K/uL (130-400) 07/20/21 19:05 MPV 10.0 fL (7.4-10.4) 07/20/21 19:05 Immature Gran % (Auto) 0.4 % 07/20/21 19:05 Neut % (Auto) 68.0 % 07/20/21 19:05 Lymph % (Auto) 25.0 % 07/20/21 19:05 [place] % (Auto) 6.5 % 07/20/21 19:05 Eos % (Auto) 0.0 % 07/20/21 19:05 Baso % (Auto) 0.1 % 07/20/21 19:05 Neut # (Auto) 9.43 K/uL (1.4-6.5) H 07/20/21 19:05 Lymph # (Auto) 3.48 K/uL (1.2-3.4) H 07/20/21 19:05 [place] # (Auto) 0.91 K/uL (0.11-0.59) H 07/20/21 19:05 Eos # (Auto) 0.00 K/uL (0-0.5) 07/20/21 19:05 Baso # (Auto) 0.02 K/uL (0-0.2) 07/20/21 19:05 Immature Gran # (Auto) 0.06 K/uL (0.00-0.02) H 07/20/21 19:05 VBG pH 7.40 (7.36-7.41) 07/20/21 23:17 Sodium 136 mmol/L (136-145) 07/20/21 23:17 Potassium 3.5 mmol/L (3.5-5.1) 07/20/21 23:17 Chloride 100 mmol/L (98-107) 07/20/21 23:17 Carbon Dioxide 27 mmol/L (21-32) 07/20/21 23:17 Anion Gap 9.0 (3-11) 07/20/21 23:17 BUN 13 mg/dl (7-18) 07/20/21 23:17 Creatinine 0.73 mg/dl (0.6-1.2) 07/20/21 23:17 Est Cr Clr Drug Dosing 113.9 ml/min 07/20/21 23:17 Est GFR ( Amer) 112.9 ml/min 07/20/21 23:17 Est GFR (Non-Af Amer) 97.4 ml/min 07/20/21 23:17 BUN/Creatinine Ratio 18.2 (10-20) 07/20/21 23:17 Glucose 296 mg/dl (70-99) H 07/20/21 23:17 POC Glucose 190 mg/dl (70-99) H 07/21/21 03:02 Calcium 8.4 mg/dl (8.5-10.1) L 07/20/21 23:17 Phosphorus 2.5 mg/dl (2.5-4.9) 07/20/21 23:17 Magnesium 1.7 mg/dl (1.8-2.4) L 07/20/21 23:17 Total Bilirubin 0.3 mg/dl (0.2-1) 07/20/21 19:05 AST 38 U/L (15-37) H 07/20/21 19:05 ALT 42 U/L (12-78) 07/20/21 19:05 Alkaline Phosphatase 134 U/L (45-117) H 07/20/21 19:05 Total Protein 8.2 gm/dl (6.4-8.2) 07/20/21 19:05 Albumin 3.4 gm/dl (3.4-5.0) 07/20/21 19:05 Globulin 4.8 gm/dl (2.5-4.0) H 07/20/21 19:05 Albumin/Globulin Ratio 0.7 (0.9-2) L 07/20/21 19:05 Lipase Cancelled 07/20/21 19:05 Beta-Hydroxybutyric Acd hemolyzed 07/20/21 19:05 Specimen Hemolysis 07/20/21 19:05 Urine Color Yellow 07/20/21 20:00 Urine Appearance Clear (Clear) 07/20/21 20:00 Urine pH 5.0 (4.5-7.5) 07/20/21 20:00 Ur Specific [place] 1.043 (1.000-1.030) H 07/20/21 20:00 Urine Protein Negative (Negative) 07/20/21 20:00 Urine Glucose (UA) 3+ (Negative) H 07/20/21 20:00 Urine Ketones Trace (Negative) H 07/20/21 20:00 Urine Blood Negative (Negative) 07/20/21 20:00 Urine Nitrite Negative (Negative) 07/20/21 20:00 Urine Bilirubin Negative (Negative) 07/20/21 20:00 Urine Urobilinogen Negative (Negative) 07/20/21 20:00 Ur Leukocyte Esterase Trace (Negative) H 07/20/21 20:00 Urine WBC (Auto) >30 /hpf (0-5) H 07/20/21 20:00 Urine RBC (Auto) 0-4 /hpf (0-4) 07/20/21 20:00 U Hyaline Cast (Auto) 1-5 /lpf (0-5) 07/20/21 20:00 U Epithel Cells (Auto) >30 /lpf (0-5) H 07/20/21 20:00 Urine Bacteria (Auto) Negative (Negative) 07/20/21 20:00 COVID-19 Eval Order Covid19 at [facility] 07/20/21 21:57 SARS-CoV-2 (PCR) NEGATIVE (Negative) 07/20/21 21:57 Supervising Physician Co-Signing Physician Notes Patient seen and examined, chart reviewed, case discussed with Dr. Reza and I agree with her assessment and plan as above Elevated blood sugar. AG=13 Elevated BHB at 3.36 Ongoing nausea, vomiting as well as diarrhea Serum Osm WNL, pH=7.4 Elevated lipase Patient with inconsistent blood sugar readings at home Exam unremarkable Assessment/Plan -insulin gtt for now, monitor gap -IVF, K repletion -Transition to SQ in AM -Remainder of plan as above Resident Activity Tracking Resident Involvement: Resident Care Provided Care Provided: Adult Hospital Medicine (1) Hypothyroidism Hypothyroidism type: unspecified Qualified Code(s): E03.9 - Hypothyroidism, unspecified (2) Vomiting Nausea presence: unspecified Vomiting Intractability: unspecified Vomiting type: unspecified Qualified Code(s): R11.10 - Vomiting, unspecified
[2021-07-20] MEDS ORDERED: STAT IV Infusion **Titration per Protocol STA ×3 (23:05→23:41)
[2021-07-20] MEDS ORDERED: PHARMACY GLYCEMIC MGMT CONSULT PRN (23:05)
[2021-07-20] MEDS ORDERED: DC ALL PREVIOUSLY ORDERED DIABETES MEDS ONE (23:05)
[2021-07-20] MEDS ORDERED: INSULIN REGULAR 250 UNITS in SODIUM CHLORIDE 0.9% 247.5 ML IV SCH (23:15)
[2021-07-20] MEDS ORDERED: GLUCAGON FOR INJ 1 MG VIAL IM PRN (23:30)
[2021-07-20] MEDS ORDERED: CARBOHYDRATES FOR HYPOGLYCEMIA PO PRN (23:30)
[2021-07-20] MEDS ORDERED: DEXTROSE 50% 50 ML SYRINGE IV PRN (23:30)
[2021-07-20] MEDS ORDERED: GLUCOSE 40% GEL 15 GM TUBE PO PRN (23:30)
[2021-07-20] MEDS ORDERED: GLUCOSE 10 TABS/TUBE PO PRN (23:30)
[2021-07-20] MEDS ORDERED: SODIUM CHLOR 0.45% + 20MEQ KCL 20 MEQ/1,000 ML BAG IV SCH (23:45)
[2021-07-20 23:51] LABS: BUN Creatinine Ratio 18.2 (10-20); Calcium 8.4 mg/dl (8.5-10.1); Creatinine Clr Calc Pharmacy 113.9 ml/min; Est GFR (African American) 112.9 ml/min; Est GFR (Non-African American) 97.4 ml/min; Magnesium 1.7 mg/dl (1.8-2.4); Phosphorus 2.5 mg/dl (2.5-4.9); Potassium 3.5 mmol/L (3.5-5.1)
[2021-07-21] MEDS ORDERED: POLYETHYLENE (MIRALAX) 17 GM PACK PO PRN (01:15)
[2021-07-21] MEDS ORDERED: DOCUSATE SODIUM/SENNA 50/8.6MG TAB PO PRN (01:15)
[2021-07-21] MEDS ORDERED: DICYCLOMINE HCL 10 MG CAP PO PRN (01:15)
[2021-07-21] MEDS ORDERED: METHOCARBAMOL 500 MG TABLET PO PRN (01:15)
[2021-07-21] MEDS ORDERED: AZELASTINE HCL 0.1% NASAL 200 SPRAYS/27,400 MCG BTL PRN (01:15)
[2021-07-21] MEDS ORDERED: NON-FORMULARY MEDICATION (Benralizumab [Fasenra] 30 mg/mL syringe) subcut SCH (01:15)
[2021-07-21] MEDS ORDERED: CHOLESTYRAMINE LIGHT 4 GM PKT PO PRN (01:41)
[2021-07-21] MEDS ORDERED: OPTIRAY 320 100ml IV ONE (01:57)
[2021-07-21] MEDS ORDERED: PENDING D5 1/2NS+20mEq KCL IVF SCH (02:00)
[2021-07-21] MEDS: TERCONAZOLE 0.4% CR 45 GM TUBE PV SCH ×2 (02:10→20:59)
[2021-07-21] MEDS: D5W AND 1/2NSS + 20MEQ KCL 20 MEQ/1,000 ML BAG IV SCH ×4 (02:25→14:49)
[2021-07-21] MEDS: MIRTAZAPINE TAB 15 MG TAB PO SCH ×2 (02:28→20:59)
[2021-07-21] MEDS: ATORVASTATIN 20 MG TAB PO SCH ×2 (02:29→20:58)
[2021-07-21] MEDS: buPROPion SR 100 MG TABCR PO SCH ×2 (02:29→20:56)
[2021-07-21] MEDS: CYCLOBENZAPRINE HCL 10 MG TAB PO SCH ×2 (02:29→20:57)
[2021-07-21] MEDS: ASPIRIN 81 MG ECTAB PO SCH ×2 (02:29→20:58)
[2021-07-21] MEDS: LEVOTHYROXINE SODIUM 75 MCG TABLET PO SCH ×2 (02:30→20:58)
[2021-07-21] MEDS: GABAPENTIN 300 MG CAP PO SCH ×3 (02:31→20:57)
[2021-07-21] MEDS: lisinopril 10 MG TAB PO SCH ×2 (02:31→20:57)
[2021-07-21] MEDS: rifAXIMin 550 MG TABLET PO SCH ×4 (02:32→20:58)
[2021-07-21] MEDS: FLUTICASONE/VILANTEROL 200/25MCG 14 PUFFS/INHALER INH SCH (03:25)
[2021-07-21 04:00] LABS: BUN Creatinine Ratio 29.8 (10-20); Calcium 8.8 mg/dl (8.5-10.1); Creatinine Clr Calc Pharmacy 101.4 ml/min; Est GFR (African American) 98.1 ml/min; Est GFR (Non-African American) 84.6 ml/min; Magnesium 2.6 mg/dl (1.8-2.4); Potassium 3.8 mmol/L (3.5-5.1)
[2021-07-21 04:02] LABS: Phosphorus 3.6 mg/dl (2.5-4.9)
[2021-07-21 04:04] LABS: BUN Creatinine Ratio 22.7 (10-20); Calcium 8.3 mg/dl (8.5-10.1); Est GFR (African American) 122.9 ml/min; Est GFR (Non-African American) 106.1 ml/min; Magnesium 1.7 mg/dl (1.8-2.4); Potassium 3.1 mmol/L (3.5-5.1)
[2021-07-21] MEDS ORDERED: ONDANSETRON INJ 2 MG/ML 2 ML VIAL IV PRN (04:09)
[2021-07-21] MEDS ORDERED: ACETAMINOPHEN 325 MG TAB PO PRN (04:09)
[2021-07-21 04:29] LABS: Beta-Hydroxybutyrate 3.36 mg/dl (0.2-2.81)
--- NOTE | 2021-07-21 04:41 | Billing Data ---
Date of Service July 20, 2021 Coding Level of Care Code INT OBSERVATION CARE 70M LVL 3
[2021-07-21 05:35] LABS: Phosphorus 2.4 mg/dl (2.5-4.9)
[2021-07-21] MEDS: POTASSIUM CHLORIDE 10 MEQ TABCR PO SCH ×2 (06:04→08:18)
[2021-07-21 07:35] LABS: Estimated Average Glucose 214 mg/dl; Hemoglobin A1C 9.1 % (4.5-5.6)
[2021-07-21] MEDS ORDERED: POTASSIUM PHOS 3 MMOL/1 ML INFUSION IV STA (08:02)
--- NOTE | 2021-07-21 08:08 | Hospitalist Progress Note ---
Date of Service July 21, 2021 Assessment & Plan (1) Metabolic acidosis: Plan: 46 yo F chronically ill patient with extensive PMH including IDDM2, bipolar disorder, GERD, Asthma, ARIELLE, admitted for management of metabolic acidosis with AG 13 from hyperglycemia/borderline DKA. No lactic checked on admission BSGs elevated to 500s at home, possible issue with her Dexcom. Also recently on Medrol dose pack for tongue swelling/pain which could have lead to current el evations In ER, BSG 379 with AG 13, Beta hydroxybutyrate elevated to 3.36, VBG 7.4 Pharmacy consulted for DKA --> Insulin gtt, IVF ordered --> attempting to d/c insulin gtt and using sliding scale this afternoon. Planning to try clear liquids and will d/c D5 from IVF A1c 9.1 from prior 7.4 in April -- suspect non-compliance at home playing role as well -- > rn diabetes educator on consult as dexcom with possible issues -- did watch aide check BSG this afternoon and was 212 and dexcom reading 231 at that time Home regimen for DM: Toujeo U300 15u QHS, Novolin Regular insulin 15-30u with meals, metformin 1gm BID Follows with Endocrine [place], [place] -- will need close f/u at d/c Also with DM gastroparesis worsening over past 2-3 weeks, follows with Dr. Adams (recent EGD April 2021 with chronic gastritis without h/pylori infxn) and CTAP was obtained --> No bowel obstruction or bowel wall thickening. Normal appendix. Hepatomegaly with hepatic steatosis. Prior cholecystectomy and hysterectomy. Continues on rifaximin, senna/docusate, pantoprazole, cholestyramine for ongoing IBS/GERD/Gastroparesis control and will order dose of reglan x 1 and continue to monitor Stated had some liquid BM, very hungry --> Lipase 1309 on admit (no pancreatitis on imaging), improved to 136 on repeat and will try some clears for now and see how she tolerates Continue to monitor serial labs for replacement of Mag/phos/potassium --> has received K in IVF as well as 80meq KCL, 15mmol Kphos, 1gm IV mag since this morning (2) Acute hyperglycemia: Plan: as above in patient with DM and gastroparesis (3) Hypertension: Plan: and HLD Continue lisinopril, atorvastatin (4) Vomiting: Plan: no further vomiting reported antiemetics prn continue to monitor (5) Allergic rhinitis: Plan: Asthma/Allergies: cont spiriva, flonse, flovent, symbicort, azelastine (6) Bipolar disorder: Plan: continue bupropion, mirtazapine (7) Gastro-esophageal reflux disease without esophagitis: Plan: continue protonix daily (8) Obstructive sleep apnea: Plan: non-compliant with CPAP (9) Hypothyroidism: Plan: Last TSH 2.February Will repeat in AM but continue levothyroxine 75mcg daily for now (10) Diabetes mellitus with gastroparesis: Plan: as above (11) Tongue swelling: Plan: recently more of an issue with pain with spicy/salty foods no active lesions but does have some tongue swelling recently given medrol dose neelima by PCP without improvement and it comes and goes Checking B12 (on metformin)/folate to see if related to nutritional deficiency. no issues swallowing/handling on secretions or maintaining airway. no new medications. does have hx celiac on chart, ?if any new dietary choices causing as well continue to monitor (12) Morbid obesity: Plan: on Insulin gtt, hoping to d/c afternoon remove D5 from IVF Clear liquid diet for now Continued inpatient stay Changed to full admission On admission written for Heparin SQ but never ordered. Given liver disease will order Lovenox SQ Admission and Anticipated Discharge Date Admission Date: July 20, 2021 Supervising Physician Co-Signing Physician Notes AZAM Supervision Note: I did not personally see or examine the patient today, but I verified all [place] points of AZAM Carey's assessment and plan with the following exceptions/additions: None Subjective Patient evaluated this afternoon. Still with some abdominal pain , hx gastroparesis. Had some liquid stool but no formed BM. Some nausea but no further vomiting. Mouth is dry and she is thirsty and would like to try some clear liquids. Blood sugars had been elevated to 500s at home and difference with her Dexcom. She just put this sensor on two days ago. To be seen by nurse educator. Hopeful to turn off insulin gtt later this afternoon. Patient ahd been on a medrol dose pack recently which could have led to spike in sugars as well which was recently discontinued. She states that at time she gets tongue swelling that is painful and worsened by salty/spicy foods and describes it as a burning sensation. No difficulty clearing secretions or difficulty with maintaining airway with this. Will also check vitamin studies to see if maybe like an atrophic glossitis? No fever, chills, chest pain, shortness of breath, sputum production. Diarrhea with mucus at baseline with diarrhea, likely from the elevated BSGs but does have a history of gastroparesis. Review of Systems Review of Systems: All systems reviewed & are unremarkable except as noted in HPI & below Physical Exam Physical Exam: Constitutional: WN/WD, obese female sleeping in bed, easily arousable Eyes: EOMI, pupils equal and reactive bilaterally, no scleral icterus ENT: dry mouth, cracked lips, atrophic appearance to tongue, slightly shiny and beefy/large Cardiac: RRR, no murmurs, gallops or rubs. Normal S1, S2 Pulm: CTAB, no accessory muscle use, not tachypneic, no w/c/r, on room air Abd: +BS thoughout, soft, tender to palpation throughout but without guarding or rigidity Extremities: 2+ peripheral pulses, no edema Neuro: no focal deficits, moving all 4 limbs Psych: A&Ox3 Results & Data Results & Data ([facility]) Vital Signs (Past 12 Hours) Vital Signs Temp Pulse Pulse Resp BP Pulse Ox 07/21/21 03:27 36.7 C 92 H 16 133/79 95 07/21/21 03:25 85 07/21/21 00:20 94 H 20 140/108 H 94 07/20/21 21:59 100 H 20 140/96 97 07/20/21 21:04 100 H 22 153/90 H 96 Laboratory Results 07/21/21 07/21/21 07/21/21 Range/Units 14:22 14:22 13:59 WBC (4.8-10.8) K/uL RBC (4.2-5.4) M/uL Hgb (12.0-16.0) g/dL Hct (37-47) % MCV (80-100) fL MCH (25-34) pg MCHC (32-36) g/dL RDW Std Deviation (36.4-46.3) fL RDW Coeff of Weston (11.5-14.5) % Plt Count (130-400) K/uL MPV (7.4-10.4) fL Immature Gran % (Auto) % Neut % (Auto) % Lymph % (Auto) % [place] % (Auto) % Eos % (Auto) % Baso % (Auto) % Neut # (Auto) (1.4-6.5) K/uL Lymph # (Auto) (1.2-3.4) K/uL [place] # (Auto) (0.11-0.59) K/uL Eos # (Auto) (0-0.5) K/uL Baso # (Auto) (0-0.2) K/uL Immature Gran # (Auto) (0.00-0.02) K/uL VBG pH (7.36-7.41) Sodium 140 (136-145) mmol/L Potassium 4.1 (3.5-5.1) mmol/L Chloride 107 (98-107) mmol/L Carbon Dioxide 24 (21-32) mmol/L Anion Gap 9.0 (3-11) BUN 7 (7-18) mg/dl Creatinine 0.52 L (0.6-1.2) mg/dl Est Cr Clr Drug Dosing 159.9 ml/min Est GFR ( Amer) 130.9 ml/min Est GFR (Non-Af Amer) 113.0 ml/min BUN/Creatinine Ratio 13.8 (10-20) Glucose 196 H (70-99) mg/dl POC Glucose 212 H (70-99) mg/dl Estimat Average Glucose mg/dl Hemoglobin A1c (4.5-5.6) % Osmolality (280-300) mOsm/kg Calcium 7.4 L (8.5-10.1) mg/dl Phosphorus 3.3 (2.5-4.9) mg/dl Magnesium 2.5 H (1.8-2.4) mg/dl Total Bilirubin (0.2-1) mg/dl AST (15-37) U/L ALT (12-78) U/L Alkaline Phosphatase (45-117) U/L Total Protein (6.4-8.2) gm/dl Albumin Cancelled 2.6 L (3.4-5.0) gm/dl Globulin (2.5-4.0) gm/dl Albumin/Globulin Ratio (0.9-2) Lipase Cancelled 136 Beta-Hydroxybutyric Acd (0.2-2.81) mg/dl Specimen Hemolysis Urine Color Urine Appearance (Clear) Urine pH (4.5-7.5) Ur Specific [place] (1.000-1.030) Urine Protein (Negative) Urine Glucose (UA) (Negative) Urine Ketones (Negative) Urine Blood (Negative) Urine Nitrite (Negative) Urine Bilirubin (Negative) Urine Urobilinogen (Negative) Ur Leukocyte Esterase (Negative) Urine WBC (Auto) (0-5) /hpf Urine RBC (Auto) (0-4) /hpf U Hyaline Cast (Auto) (0-5) /lpf U Epithel Cells (Auto) (0-5) /lpf Urine Bacteria (Auto) (Negative) COVID-19 Eval Order SARS-CoV-2 (PCR) (Negative) 07/21/21 07/21/21 07/21/21 Range/Units 12:53 10:54 10:54 WBC 8.31 (4.8-10.8) K/uL RBC 4.28 (4.2-5.4) M/uL Hgb 12.5 (12.0-16.0) g/dL Hct 37.8 (37-47) % MCV 88.3 (80-100) fL MCH 29.2 (25-34) pg MCHC 33.1 (32-36) g/dL RDW Std Deviation 41.6 (36.4-46.3) fL RDW Coeff of Weston 13.0 (11.5-14.5) % Plt Count 224 (130-400) K/uL MPV 9.3 (7.4-10.4) fL Immature Gran % (Auto) % Neut % (Auto) % Lymph % (Auto) % [place] % (Auto) % Eos % (Auto) % Baso % (Auto) % Neut # (Auto) (1.4-6.5) K/uL Lymph # (Auto) (1.2-3.4) K/uL [place] # (Auto) (0.11-0.59) K/uL Eos # (Auto) (0-0.5) K/uL Baso # (Auto) (0-0.2) K/uL Immature Gran # (Auto) (0.00-0.02) K/uL VBG pH (7.36-7.41) Sodium 139 (136-145) mmol/L Potassium 3.6 D (3.5-5.1) mmol/L Chloride 105 (98-107) mmol/L Carbon Dioxide 27 (21-32) mmol/L Anion Gap 8.0 (3-11) BUN 9 D (7-18) mg/dl Creatinine 0.59 L (0.6-1.2) mg/dl Est Cr Clr Drug Dosing 140.9 ml/min Est GFR ( Amer) 125.6 ml/min Est GFR (Non-Af Amer) 108.4 ml/min BUN/Creatinine Ratio 15.2 (10-20) Glucose 202 H (70-99) mg/dl POC Glucose 213 H (70-99) mg/dl Estimat Average Glucose mg/dl Hemoglobin A1c (4.5-5.6) % Osmolality (280-300) mOsm/kg Calcium 7.5 L (8.5-10.1) mg/dl Phosphorus 3.4 D (2.5-4.9) mg/dl Magnesium 1.9 (1.8-2.4) mg/dl Total Bilirubin (0.2-1) mg/dl AST (15-37) U/L ALT (12-78) U/L Alkaline Phosphatase (45-117) U/L Total Protein (6.4-8.2) gm/dl Albumin (3.4-5.0) gm/dl Globulin (2.5-4.0) gm/dl Albumin/Globulin Ratio (0.9-2) Lipase Beta-Hydroxybutyric Acd (0.2-2.81) mg/dl Specimen Hemolysis Urine Color Urine Appearance (Clear) Urine pH (4.5-7.5) Ur Specific [place] (1.000-1.030) Urine Protein (Negative) Urine Glucose (UA) (Negative) Urine Ketones (Negative) Urine Blood (Negative) Urine Nitrite (Negative) Urine Bilirubin (Negative) Urine Urobilinogen (Negative) Ur Leukocyte Esterase (Negative) Urine WBC (Auto) (0-5) /hpf Urine RBC (Auto) (0-4) /hpf U Hyaline Cast (Auto) (0-5) /lpf U Epithel Cells (Auto) (0-5) /lpf Urine Bacteria (Auto) (Negative) COVID-19 Eval Order SARS-CoV-2 (PCR) (Negative) 07/21/21 07/21/21 07/21/21 Range/Units 10:11 09:19 08:13 WBC (4.8-10.8) K/uL RBC (4.2-5.4) M/uL Hgb (12.0-16.0) g/dL Hct (37-47) % MCV (80-100) fL MCH (25-34) pg MCHC (32-36) g/dL RDW Std Deviation (36.4-46.3) fL RDW Coeff of Weston (11.5-14.5) % Plt Count (130-400) K/uL MPV (7.4-10.4) fL Immature Gran % (Auto) % Neut % (Auto) % Lymph % (Auto) % [place] % (Auto) % Eos % (Auto) % Baso % (Auto) % Neut # (Auto) (1.4-6.5) K/uL Lymph # (Auto) (1.2-3.4) K/uL [place] # (Auto) (0.11-0.59) K/uL Eos # (Auto) (0-0.5) K/uL Baso # (Auto) (0-0.2) K/uL Immature Gran # (Auto) (0.00-0.02) K/uL VBG pH (7.36-7.41) Sodium (136-145) mmol/L Potassium (3.5-5.1) mmol/L Chloride (98-107) mmol/L Carbon Dioxide (21-32) mmol/L Anion Gap (3-11) BUN (7-18) mg/dl Creatinine (0.6-1.2) mg/dl Est Cr Clr Drug Dosing ml/min Est GFR ( Amer) ml/min Est GFR (Non-Af Amer) ml/min BUN/Creatinine Ratio (10-20) Glucose (70-99) mg/dl POC Glucose 164 H 175 H 185 H (70-99) mg/dl Estimat Average Glucose mg/dl Hemoglobin A1c (4.5-5.6) % Osmolality (280-300) mOsm/kg Calcium (8.5-10.1) mg/dl Phosphorus (2.5-4.9) mg/dl Magnesium (1.8-2.4) mg/dl Total Bilirubin (0.2-1) mg/dl AST (15-37) U/L ALT (12-78) U/L Alkaline Phosphatase (45-117) U/L Total Protein (6.4-8.2) gm/dl Albumin (3.4-5.0) gm/dl Globulin (2.5-4.0) gm/dl Albumin/Globulin Ratio (0.9-2) Lipase Beta-Hydroxybutyric Acd (0.2-2.81) mg/dl Specimen Hemolysis Urine Color Urine Appearance (Clear) Urine pH (4.5-7.5) Ur Specific [place] (1.000-1.030) Urine Protein (Negative) Urine Glucose (UA) (Negative) Urine Ketones (Negative) Urine Blood (Negative) Urine Nitrite (Negative) Urine Bilirubin (Negative) Urine Urobilinogen (Negative) Ur Leukocyte Esterase (Negative) Urine WBC (Auto) (0-5) /hpf Urine RBC (Auto) (0-4) /hpf U Hyaline Cast (Auto) (0-5) /lpf U Epithel Cells (Auto) (0-5) /lpf Urine Bacteria (Auto) (Negative) COVID-19 Eval Order SARS-CoV-2 (PCR) (Negative) 07/21/21 07/21/21 07/21/21 Range/Units 07:19 06:02 05:08 WBC (4.8-10.8) K/uL RBC (4.2-5.4) M/uL Hgb (12.0-16.0) g/dL Hct (37-47) % MCV (80-100) fL MCH (25-34) pg MCHC (32-36) g/dL RDW Std Deviation (36.4-46.3) fL RDW Coeff of Weston (11.5-14.5) % Plt Count (130-400) K/uL MPV (7.4-10.4) fL Immature Gran % (Auto) % Neut % (Auto) % Lymph % (Auto) % [place] % (Auto) % Eos % (Auto) % Baso % (Auto) % Neut # (Auto) (1.4-6.5) K/uL Lymph # (Auto) (1.2-3.4) K/uL [place] # (Auto) (0.11-0.59) K/uL Eos # (Auto) (0-0.5) K/uL Baso # (Auto) (0-0.2) K/uL Immature Gran # (Auto) (0.00-0.02) K/uL VBG pH (7.36-7.41) Sodium (136-145) mmol/L Potassium (3.5-5.1) mmol/L Chloride (98-107) mmol/L Carbon Dioxide (21-32) mmol/L Anion Gap (3-11) BUN (7-18) mg/dl Creatinine (0.6-1.2) mg/dl Est Cr Clr Drug Dosing ml/min Est GFR ( Amer) ml/min Est GFR (Non-Af Amer) ml/min BUN/Creatinine Ratio (10-20) Glucose (70-99) mg/dl POC Glucose 161 H 135 H 165 H (70-99) mg/dl Estimat Average Glucose mg/dl Hemoglobin A1c (4.5-5.6) % Osmolality (280-300) mOsm/kg Calcium (8.5-10.1) mg/dl Phosphorus (2.5-4.9) mg/dl Magnesium (1.8-2.4) mg/dl Total Bilirubin (0.2-1) mg/dl AST (15-37) U/L ALT (12-78) U/L Alkaline Phosphatase (45-117) U/L Total Protein (6.4-8.2) gm/dl Albumin (3.4-5.0) gm/dl Globulin (2.5-4.0) gm/dl Albumin/Globulin Ratio (0.9-2) Lipase Beta-Hydroxybutyric Acd (0.2-2.81) mg/dl Specimen Hemolysis Urine Color Urine Appearance (Clear) Urine pH (4.5-7.5) Ur Specific [place] (1.000-1.030) Urine Protein (Negative) Urine Glucose (UA) (Negative) Urine Ketones (Negative) Urine Blood (Negative) Urine Nitrite (Negative) Urine Bilirubin (Negative) Urine Urobilinogen (Negative) Ur Leukocyte Esterase (Negative) Urine WBC (Auto) (0-5) /hpf Urine RBC (Auto) (0-4) /hpf U Hyaline Cast (Auto) (0-5) /lpf U Epithel Cells (Auto) (0-5) /lpf Urine Bacteria (Auto) (Negative) COVID-19 Eval Order SARS-CoV-2 (PCR) (Negative) 07/21/21 07/21/21 07/21/21 Range/Units 04:09 03:26 03:26 WBC (4.8-10.8) K/uL RBC (4.2-5.4) M/uL Hgb (12.0-16.0) g/dL Hct (37-47) % MCV (80-100) fL MCH (25-34) pg MCHC (32-36) g/dL RDW Std Deviation (36.4-46.3) fL RDW Coeff of Weston (11.5-14.5) % Plt Count (130-400) K/uL MPV (7.4-10.4) fL Immature Gran % (Auto) % Neut % (Auto) % Lymph % (Auto) % [place] % (Auto) % Eos % (Auto) % Baso % (Auto) % Neut # (Auto) (1.4-6.5) K/uL Lymph # (Auto) (1.2-3.4) K/uL [place] # (Auto) (0.11-0.59) K/uL Eos # (Auto) (0-0.5) K/uL Baso # (Auto) (0-0.2) K/uL Immature Gran # (Auto) (0.00-0.02) K/uL VBG pH (7.36-7.41) Sodium (136-145) mmol/L Potassium (3.5-5.1) mmol/L Chloride (98-107) mmol/L Carbon Dioxide (21-32) mmol/L Anion Gap (3-11) BUN (7-18) mg/dl Creatinine (0.6-1.2) mg/dl Est Cr Clr Drug Dosing ml/min Est GFR ( Amer) ml/min Est GFR (Non-Af Amer) ml/min BUN/Creatinine Ratio (10-20) Glucose (70-99) mg/dl POC Glucose 170 H (70-99) mg/dl Estimat Average Glucose 214 mg/dl Hemoglobin A1c 9.1 H (4.5-5.6) % Osmolality 294 (280-300) mOsm/kg Calcium (8.5-10.1) mg/dl Phosphorus (2.5-4.9) mg/dl Magnesium (1.8-2.4) mg/dl Total Bilirubin (0.2-1) mg/dl AST (15-37) U/L ALT (12-78) U/L Alkaline Phosphatase (45-117) U/L Total Protein (6.4-8.2) gm/dl Albumin (3.4-5.0) gm/dl Globulin (2.5-4.0) gm/dl Albumin/Globulin Ratio (0.9-2) Lipase Beta-Hydroxybutyric Acd (0.2-2.81) mg/dl Specimen Hemolysis Urine Color Urine Appearance (Clear) Urine pH (4.5-7.5) Ur Specific [place] (1.000-1.030) Urine Protein (Negative) Urine Glucose (UA) (Negative) Urine Ketones (Negative) Urine Blood (Negative) Urine Nitrite (Negative) Urine Bilirubin (Negative) Urine Urobilinogen (Negative) Ur Leukocyte Esterase (Negative) Urine WBC (Auto) (0-5) /hpf Urine RBC (Auto) (0-4) /hpf U Hyaline Cast (Auto) (0-5) /lpf U Epithel Cells (Auto) (0-5) /lpf Urine Bacteria (Auto) (Negative) COVID-19 Eval Order SARS-CoV-2 (PCR) (Negative) 07/21/21 07/21/21 07/21/21 Range/Units 03:26 03:26 03:26 WBC (4.8-10.8) K/uL RBC (4.2-5.4) M/uL Hgb (12.0-16.0) g/dL Hct (37-47) % MCV (80-100) fL MCH (25-34) pg MCHC (32-36) g/dL RDW Std Deviation (36.4-46.3) fL RDW Coeff of Weston (11.5-14.5) % Plt Count (130-400) K/uL MPV (7.4-10.4) fL Immature Gran % (Auto) % Neut % (Auto) % Lymph % (Auto) % [place] % (Auto) % Eos % (Auto) % Baso % (Auto) % Neut # (Auto) (1.4-6.5) K/uL Lymph # (Auto) (1.2-3.4) K/uL [place] # (Auto) (0.11-0.59) K/uL Eos # (Auto) (0-0.5) K/uL Baso # (Auto) (0-0.2) K/uL Immature Gran # (Auto) (0.00-0.02) K/uL VBG pH 7.38 (7.36-7.41) Sodium 136 138 (136-145) mmol/L Potassium 3.1 L D 3.8 (3.5-5.1) mmol/L Chloride 101 106 (98-107) mmol/L Carbon Dioxide 33 H 28 (21-32) mmol/L Anion Gap 2.0 L 4.0 (3-11) BUN 14 24 H D (7-18) mg/dl Creatinine 0.63 0.82 (0.6-1.2) mg/dl Est Cr Clr Drug Dosing 132.0 101.4 ml/min Est GFR ( Amer) 122.9 98.1 ml/min Est GFR (Non-Af Amer) 106.1 84.6 ml/min BUN/Creatinine Ratio 22.7 H 29.8 H (10-20) Glucose 194 H 159 H (70-99) mg/dl POC Glucose (70-99) mg/dl Estimat Average Glucose mg/dl Hemoglobin A1c (4.5-5.6) % Osmolality (280-300) mOsm/kg Calcium 8.3 L 8.8 (8.5-10.1) mg/dl Phosphorus 2.4 L D 3.6 D (2.5-4.9) mg/dl Magnesium 1.7 L 2.6 H (1.8-2.4) mg/dl Total Bilirubin (0.2-1) mg/dl AST (15-37) U/L ALT (12-78) U/L Alkaline Phosphatase (45-117) U/L Total Protein (6.4-8.2) gm/dl Albumin (3.4-5.0) gm/dl Globulin (2.5-4.0) gm/dl Albumin/Globulin Ratio (0.9-2) Lipase 1309 H Beta-Hydroxybutyric Acd 3.36 H (0.2-2.81) mg/dl Specimen Hemolysis Urine Color Urine Appearance (Clear) Urine pH (4.5-7.5) Ur Specific [place] (1.000-1.030) Urine Protein (Negative) Urine Glucose (UA) (Negative) Urine Ketones (Negative) Urine Blood (Negative) Urine Nitrite (Negative) Urine Bilirubin (Negative) Urine Urobilinogen (Negative) Ur Leukocyte Esterase (Negative) Urine WBC (Auto) (0-5) /hpf Urine RBC (Auto) (0-4) /hpf U Hyaline Cast (Auto) (0-5) /lpf U Epithel Cells (Auto) (0-5) /lpf Urine Bacteria (Auto) (Negative) COVID-19 Eval Order SARS-CoV-2 (PCR) (Negative) 07/21/21 07/21/21 07/21/21 Range/Units 03:02 01:59 01:08 WBC (4.8-10.8) K/uL RBC (4.2-5.4) M/uL Hgb (12.0-16.0) g/dL Hct (37-47) % MCV (80-100) fL MCH (25-34) pg MCHC (32-36) g/dL RDW Std Deviation (36.4-46.3) fL RDW Coeff of Weston (11.5-14.5) % Plt Count (130-400) K/uL MPV (7.4-10.4) fL Immature Gran % (Auto) % Neut % (Auto) % Lymph % (Auto) % [place] % (Auto) % Eos % (Auto) % Baso % (Auto) % Neut # (Auto) (1.4-6.5) K/uL Lymph # (Auto) (1.2-3.4) K/uL [place] # (Auto) (0.11-0.59) K/uL Eos # (Auto) (0-0.5) K/uL Baso # (Auto) (0-0.2) K/uL Immature Gran # (Auto) (0.00-0.02) K/uL VBG pH (7.36-7.41) Sodium (136-145) mmol/L Potassium (3.5-5.1) mmol/L Chloride (98-107) mmol/L Carbon Dioxide (21-32) mmol/L Anion Gap (3-11) BUN (7-18) mg/dl Creatinine (0.6-1.2) mg/dl Est Cr Clr Drug Dosing ml/min Est GFR ( Amer) ml/min Est GFR (Non-Af Amer) ml/min BUN/Creatinine Ratio (10-20) Glucose (70-99) mg/dl POC Glucose 190 H 207 H 253 H (70-99) mg/dl Estimat Average Glucose mg/dl Hemoglobin A1c (4.5-5.6) % Osmolality (280-300) mOsm/kg Calcium (8.5-10.1) mg/dl Phosphorus (2.5-4.9) mg/dl Magnesium (1.8-2.4) mg/dl Total Bilirubin (0.2-1) mg/dl AST (15-37) U/L ALT (12-78) U/L Alkaline Phosphatase (45-117) U/L Total Protein (6.4-8.2) gm/dl Albumin (3.4-5.0) gm/dl Globulin (2.5-4.0) gm/dl Albumin/Globulin Ratio (0.9-2) Lipase Beta-Hydroxybutyric Acd (0.2-2.81) mg/dl Specimen Hemolysis Urine Color Urine Appearance (Clear) Urine pH (4.5-7.5) Ur Specific [place] (1.000-1.030) Urine Protein (Negative) Urine Glucose (UA) (Negative) Urine Ketones (Negative) Urine Blood (Negative) Urine Nitrite (Negative) Urine Bilirubin (Negative) Urine Urobilinogen (Negative) Ur Leukocyte Esterase (Negative) Urine WBC (Auto) (0-5) /hpf Urine RBC (Auto) (0-4) /hpf U Hyaline Cast (Auto) (0-5) /lpf U Epithel Cells (Auto) (0-5) /lpf Urine Bacteria (Auto) (Negative) COVID-19 Eval Order SARS-CoV-2 (PCR) (Negative) 07/20/21 07/20/21 07/20/21 Range/Units 23:24 23:17 23:17 WBC (4.8-10.8) K/uL RBC (4.2-5.4) M/uL Hgb (12.0-16.0) g/dL Hct (37-47) % MCV (80-100) fL MCH (25-34) pg MCHC (32-36) g/dL RDW Std Deviation (36.4-46.3) fL RDW Coeff of Weston (11.5-14.5) % Plt Count (130-400) K/uL MPV (7.4-10.4) fL Immature Gran % (Auto) % Neut % (Auto) % Lymph % (Auto) % [place] % (Auto) % Eos % (Auto) % Baso % (Auto) % Neut # (Auto) (1.4-6.5) K/uL Lymph # (Auto) (1.2-3.4) K/uL [place] # (Auto) (0.11-0.59) K/uL Eos # (Auto) (0-0.5) K/uL Baso # (Auto) (0-0.2) K/uL Immature Gran # (Auto) (0.00-0.02) K/uL VBG pH 7.40 (7.36-7.41) Sodium 136 (136-145) mmol/L Potassium 3.5 (3.5-5.1) mmol/L Chloride 100 (98-107) mmol/L Carbon Dioxide 27 (21-32) mmol/L Anion Gap 9.0 (3-11) BUN 13 (7-18) mg/dl Creatinine 0.73 (0.6-1.2) mg/dl Est Cr Clr Drug Dosing 113.9 ml/min Est GFR ( Amer) 112.9 ml/min Est GFR (Non-Af Amer) 97.4 ml/min BUN/Creatinine Ratio 18.2 (10-20) Glucose 296 H (70-99) mg/dl POC Glucose 274 H (70-99) mg/dl Estimat Average Glucose mg/dl Hemoglobin A1c (4.5-5.6) % Osmolality (280-300) mOsm/kg Calcium 8.4 L (8.5-10.1) mg/dl Phosphorus 2.5 (2.5-4.9) mg/dl Magnesium 1.7 L (1.8-2.4) mg/dl Total Bilirubin (0.2-1) mg/dl AST (15-37) U/L ALT (12-78) U/L Alkaline Phosphatase (45-117) U/L Total Protein (6.4-8.2) gm/dl Albumin (3.4-5.0) gm/dl Globulin (2.5-4.0) gm/dl Albumin/Globulin Ratio (0.9-2) Lipase Beta-Hydroxybutyric Acd (0.2-2.81) mg/dl Specimen Hemolysis Urine Color Urine Appearance (Clear) Urine pH (4.5-7.5) Ur Specific [place] (1.000-1.030) Urine Protein (Negative) Urine Glucose (UA) (Negative) Urine Ketones (Negative) Urine Blood (Negative) Urine Nitrite (Negative) Urine Bilirubin (Negative) Urine Urobilinogen (Negative) Ur Leukocyte Esterase (Negative) Urine WBC (Auto) (0-5) /hpf Urine RBC (Auto) (0-4) /hpf U Hyaline Cast (Auto) (0-5) /lpf U Epithel Cells (Auto) (0-5) /lpf Urine Bacteria (Auto) (Negative) COVID-19 Eval Order SARS-CoV-2 (PCR) (Negative) 07/20/21 07/20/21 07/20/21 Range/Units 21:57 21:57 21:54 WBC (4.8-10.8) K/uL RBC (4.2-5.4) M/uL Hgb (12.0-16.0) g/dL Hct (37-47) % MCV (80-100) fL MCH (25-34) pg MCHC (32-36) g/dL RDW Std Deviation (36.4-46.3) fL RDW Coeff of [place] (11.5-14.5) % Plt Count (130-400) K/uL MPV (7.4-10.4) fL Immature Gran % (Auto) % Neut % (Auto) % Lymph % (Auto) % [place] % (Auto) % Eos % (Auto) % Baso % (Auto) % Neut # (Auto) (1.4-6.5) K/uL Lymph # (Auto) (1.2-3.4) K/uL [place] # (Auto) (0.11-0.59) K/uL Eos # (Auto) (0-0.5) K/uL Baso # (Auto) (0-0.2) K/uL Immature Gran # (Auto) (0.00-0.02) K/uL VBG pH (7.36-7.41) Sodium (136-145) mmol/L Potassium (3.5-5.1) mmol/L Chloride (98-107) mmol/L Carbon Dioxide (21-32) mmol/L Anion Gap (3-11) BUN (7-18) mg/dl Creatinine (0.6-1.2) mg/dl Est Cr Clr Drug Dosing ml/min Est GFR ( Amer) ml/min Est GFR (Non-Af Amer) ml/min BUN/Creatinine Ratio (10-20) Glucose (70-99) mg/dl POC Glucose 332 H* (70-99) mg/dl Estimat Average Glucose mg/dl Hemoglobin A1c (4.5-5.6) % Osmolality (280-300) mOsm/kg Calcium (8.5-10.1) mg/dl Phosphorus (2.5-4.9) mg/dl Magnesium (1.8-2.4) mg/dl Total Bilirubin (0.2-1) mg/dl AST (15-37) U/L ALT (12-78) U/L Alkaline Phosphatase (45-117) U/L Total Protein (6.4-8.2) gm/dl Albumin (3.4-5.0) gm/dl Globulin (2.5-4.0) gm/dl Albumin/Globulin Ratio (0.9-2) Lipase Beta-Hydroxybutyric Acd (0.2-2.81) mg/dl Specimen Hemolysis Urine Color Urine Appearance (Clear) Urine pH (4.5-7.5) Ur Specific [place] (1.000-1.030) Urine Protein (Negative) Urine Glucose (UA) (Negative) Urine Ketones (Negative) Urine Blood (Negative) Urine Nitrite (Negative) Urine Bilirubin (Negative) Urine Urobilinogen (Negative) Ur Leukocyte Esterase (Negative) Urine WBC (Auto) (0-5) /hpf Urine RBC (Auto) (0-4) /hpf U Hyaline Cast (Auto) (0-5) /lpf U Epithel Cells (Auto) (0-5) /lpf Urine Bacteria (Auto) (Negative) COVID-19 Eval Order Covid19 at [facility] SARS-CoV-2 (PCR) NEGATIVE (Negative) 07/20/21 07/20/21 07/20/21 Range/Units 20:57 20:00 19:05 WBC (4.8-10.8) K/uL RBC (4.2-5.4) M/uL Hgb (12.0-16.0) g/dL Hct (37-47) % MCV (80-100) fL MCH (25-34) pg MCHC (32-36) g/dL RDW Std Deviation (36.4-46.3) fL RDW Coeff of [place] (11.5-14.5) % Plt Count (130-400) K/uL MPV (7.4-10.4) fL Immature Gran % (Auto) % Neut % (Auto) % Lymph % (Auto) % [place] % (Auto) % Eos % (Auto) % Baso % (Auto) % Neut # (Auto) (1.4-6.5) K/uL Lymph # (Auto) (1.2-3.4) K/uL [place] # (Auto) (0.11-0.59) K/uL Eos # (Auto) (0-0.5) K/uL Baso # (Auto) (0-0.2) K/uL Immature Gran # (Auto) (0.00-0.02) K/uL VBG pH (7.36-7.41) Sodium 132 L (136-145) mmol/L Potassium 3.6 (3.5-5.1) mmol/L Chloride 98 (98-107) mmol/L Carbon Dioxide 20 L (21-32) mmol/L Anion Gap 13.0 H (3-11) BUN 13 (7-18) mg/dl Creatinine 1.01 (0.6-1.2) mg/dl Est Cr Clr Drug Dosing 82.3 ml/min Est GFR ( Amer) 76.2 ml/min Est GFR (Non-Af Amer) 65.8 ml/min BUN/Creatinine Ratio 12.5 (10-20) Glucose 379 H* (70-99) mg/dl POC Glucose 336 H* (70-99) mg/dl Estimat Average Glucose mg/dl Hemoglobin A1c (4.5-5.6) % Osmolality (280-300) mOsm/kg Calcium 9.1 (8.5-10.1) mg/dl Phosphorus (2.5-4.9) mg/dl Magnesium (1.8-2.4) mg/dl Total Bilirubin 0.3 (0.2-1) mg/dl AST 38 H (15-37) U/L ALT 42 (12-78) U/L Alkaline Phosphatase 134 H (45-117) U/L Total Protein 8.2 (6.4-8.2) gm/dl Albumin 3.4 (3.4-5.0) gm/dl Globulin 4.8 H (2.5-4.0) gm/dl Albumin/Globulin Ratio 0.7 L (0.9-2) Lipase Cancelled Beta-Hydroxybutyric Acd (0.2-2.81) mg/dl Specimen Hemolysis Urine Color Yellow Urine Appearance Clear (Clear) Urine pH 5.0 (4.5-7.5) Ur Specific [place] 1.043 H (1.000-1.030) Urine Protein Negative (Negative) Urine Glucose (UA) 3+ H (Negative) Urine Ketones Trace H (Negative) Urine Blood Negative (Negative) Urine Nitrite Negative (Negative) Urine Bilirubin Negative (Negative) Urine Urobilinogen Negative (Negative) Ur Leukocyte Esterase Trace H (Negative) Urine WBC (Auto) >30 H (0-5) /hpf Urine RBC (Auto) 0-4 (0-4) /hpf U Hyaline Cast (Auto) 1-5 (0-5) /lpf U Epithel Cells (Auto) >30 H (0-5) /lpf Urine Bacteria (Auto) Negative (Negative) COVID-19 Eval Order SARS-CoV-2 (PCR) (Negative) 07/20/21 Range/Units 19:05 WBC 13.90 H (4.8-10.8) K/uL RBC 5.15 (4.2-5.4) M/uL Hgb 15.4 (12.0-16.0) g/dL Hct 45.0 (37-47) % MCV 87.4 (80-100) fL MCH 29.9 (25-34) pg MCHC 34.2 (32-36) g/dL RDW Std Deviation 40.6 (36.4-46.3) fL RDW Coeff of Weston 12.7 (11.5-14.5) % Plt Count 349 (130-400) K/uL MPV 10.0 (7.4-10.4) fL Immature Gran % (Auto) 0.4 % Neut % (Auto) 68.0 % Lymph % (Auto) 25.0 % [place] % (Auto) 6.5 % Eos % (Auto) 0.0 % Baso % (Auto) 0.1 % Neut # (Auto) 9.43 H (1.4-6.5) K/uL Lymph # (Auto) 3.48 H (1.2-3.4) K/uL [place] # (Auto) 0.91 H (0.11-0.59) K/uL Eos # (Auto) 0.00 (0-0.5) K/uL Baso # (Auto) 0.02 (0-0.2) K/uL Immature Gran # (Auto) 0.06 H (0.00-0.02) K/uL VBG pH (7.36-7.41) Sodium (136-145) mmol/L Potassium (3.5-5.1) mmol/L Chloride (98-107) mmol/L Carbon Dioxide (21-32) mmol/L Anion Gap (3-11) BUN (7-18) mg/dl Creatinine (0.6-1.2) mg/dl Est Cr Clr Drug Dosing ml/min Est GFR ( Amer) ml/min Est GFR (Non-Af Amer) ml/min BUN/Creatinine Ratio (10-20) Glucose (70-99) mg/dl POC Glucose (70-99) mg/dl Estimat Average Glucose mg/dl Hemoglobin A1c (4.5-5.6) % Osmolality (280-300) mOsm/kg Calcium (8.5-10.1) mg/dl Phosphorus (2.5-4.9) mg/dl Magnesium (1.8-2.4) mg/dl Total Bilirubin (0.2-1) mg/dl AST (15-37) U/L ALT (12-78) U/L Alkaline Phosphatase (45-117) U/L Total Protein (6.4-8.2) gm/dl Albumin (3.4-5.0) gm/dl Globulin (2.5-4.0) gm/dl Albumin/Globulin Ratio (0.9-2) Lipase Beta-Hydroxybutyric Acd (0.2-2.81) mg/dl Specimen Hemolysis Urine Color Urine Appearance (Clear) Urine pH (4.5-7.5) Ur Specific [place] (1.000-1.030) Urine Protein (Negative) Urine Glucose (UA) (Negative) Urine Ketones (Negative) Urine Blood (Negative) Urine Nitrite (Negative) Urine Bilirubin (Negative) Urine Urobilinogen (Negative) Ur Leukocyte Esterase (Negative) Urine WBC (Auto) (0-5) /hpf Urine RBC (Auto) (0-4) /hpf U Hyaline Cast (Auto) (0-5) /lpf U Epithel Cells (Auto) (0-5) /lpf Urine Bacteria (Auto) (Negative) COVID-19 Eval Order SARS-CoV-2 (PCR) (Negative) Diagnostic Findings Abdomen/Pelvis CT 07/20/21 23:[address] WITH IV CONTRAST CT DOSE: 1832.11 mGy.cm HISTORY: Acute nausea with general abdominal pain and gastroparesis gastroparesis, ongoing nausea, distension TECHNIQUE: Multiaxial CT images of the abdomen and pelvis were performed following the IV administration of 93 cc of Optiray, A dose lowering technique was utilized adhering to the principles of ALARA. COMPARISON STUDY: CT abdomen and pelvis 02/22/2021 FINDINGS: Imaged inferior cardiac chambers are unremarkable. Clear lung bases. There is no pneumatosis or pneumoperitoneum. Unremarkable spleen, pancreas and left adrenal gland. Unchanged 1.3 cm right adrenal gland myelolipoma. Cholecystectomy. Hepatomegaly with hepatic steatosis. Patent portal vein. Unremarkable kidneys. There is no hydronephrosis. Unremarkable urinary bladder. Hysterectomy. Follicular changes of the ovaries. Aorta and IVC are unremarkable. No adenopathy. No bowel obstruction or bowel wall thickening. There is no ascites or mesenteric inflammation. Normal appendix. No acute fracture. 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 Mild marginal spurring of the bilateral hips. IMPRESSION: 1. No bowel obstruction or bowel wall thickening. Normal appendix. 2. Hepatomegaly with hepatic steatosis. 3. Prior cholecystectomy and hysterectomy. 4. Additional findings as above. ACT 112: Negative or not required by law. The above report was generated using voice recognition software. It may contain grammatical, syntax or spelling errors. Electronically signed by: Ulises Lee M.D. 07/21/2021 8:54 AM PG Care Time/CCT Total # of Minutes Spent Total Time Spent with Patient: Total time spent is greater than 50% in coordination of care (as documented) at patient's floor/unit and/or counseling patient: Coding Level of Care Code 75145 Subseq Hosp Care Lvl 3 Diagnoses Acute hyperglycemia R73.9 Vomiting R11.10 Nausea presence: unspecified Vomiting Intractability: unspecified Vomiting type: unspecified Allergic rhinitis J30.9 Bipolar disorder F31.9 Gastro-esophageal reflux disease without esophagitis K21.9 Obstructive sleep apnea G47.33 Morbid obesity E66.01 Hypothyroidism E03.9 Hypothyroidism type: unspecified Diabetes mellitus with gastroparesis E11.43 Metabolic acidosis E87.2 Hypertension I10 Hypertension type: essential hypertension Tongue swelling R22.0 (1) Hypothyroidism Hypothyroidism type: unspecified Qualified Code(s): E03.9 - Hypothyroidism, unspecified (2) Hypertension Hypertension type: essential hypertension Qualified Code(s): I10 - Essential (primary) hypertension (3) Vomiting Nausea presence: unspecified Vomiting Intractability: unspecified Vomiting type: unspecified Qualified Code(s): R11.10 - Vomiting, unspecified
[2021-07-21] MEDS ORDERED: POTASSIUM PHOSPHATE 15 MMOL in SODIUM CHLORIDE 0.9% 250 ML IV ONE (08:15)
[2021-07-21] MEDS: SUCRALFATE 1 GM TAB PO SCH ×4 (08:18→20:57)
[2021-07-21] MEDS: FLUTICASONE FUROATE 200MCG 14 PUFFS/INHALER INH SCH (08:19)
[2021-07-21] MEDS: FLUTICASONE PROPIONATE NA SPR 16 GM BTL SCH ×2 (08:19→21:00)
[2021-07-21] MEDS: UMECLIDINIUM BROMIDE 62.5MCG/BLISTER 7 PUFFS/INHALER INH SCH (08:19)
[2021-07-21] MEDS: INSULIN ASPART 100 UNITS/ML 3 ML PEN SC SCH ×3 (08:29→17:53)
[2021-07-21] MEDS ORDERED: INSULIN GLARGINE SOLOSTAR 100 UNITS/ML 3 ML PEN SC ONE (08:30)
--- NOTE | 2021-07-21 08:56 | CT Scan Report ---
ABDOMEN AND PELVIS CT WITH IV CONTRAST CT DOSE: 1832.11 mGy.cm HISTORY: Acute nausea with general abdominal pain and gastroparesis gastroparesis, ongoing nausea, d istension TECHNIQUE: Multiaxial CT images of the abdomen and pelvis were performed following the IV administrat ion of 93 cc of Optiray, A dose lowering technique was utilized adhering to the principles of ALARA. COMPARISON STUDY: CT abdomen and pelvis 02/22/2021 FINDINGS: Imaged inferior cardiac chambers are unremarkable. Clear lung bases. There is no pneumatosis or pneum operitoneum. Unremarkable spleen, pancreas and left adrenal gland. Unchanged 1.3 cm right adrenal gla nd myelolipoma. Cholecystectomy. Hepatomegaly with hepatic steatosis. Patent portal vein. Unremarkable kidneys. There is no hydronephrosis. Unremarkable urinary bladder. Hysterectomy. Follicu lar changes of the ovaries. Aorta and IVC are unremarkable. No adenopathy. No bowel obstruction or robinson wel wall thickening. There is no ascites or mesenteric inflammation. Normal appendix. No acute fractu re. 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 Mild marginal spurring of the bilate ral hips. IMPRESSION: 1. No bowel obstruction or bowel wall thickening. Normal appendix. 2. Hepatomegaly with hepatic steatosis. 3. Prior cholecystectomy and hysterectomy. 4. Additional findings as above. ACT 112: Negative or not required by law. The above report was generated using voice recognition software. It may contain grammatical, syntax o r spelling errors. Electronically signed by: Ulises Lee M.D. 07/21/2021 8:54 AM
--- NOTE | 2021-07-21 10:14 | Pharmacy Report ---
Pharmacy Glycemic Short Note 2 - Date of Service July 21, 2021 - Glycemic Short BSG Results (Last 24 hours): 07/20/21 07/20/21 07/20/21 19:05 20:57 21:54 Glucose 379 H* POC Glucose 336 H* 332 H* 07/20/21 07/20/21 07/21/21 23:17 23:24 01:08 Glucose 296 H POC Glucose 274 H 253 H 07/21/21 07/21/21 07/21/21 01:59 03:02 03:26 Glucose 159 H POC Glucose 207 H 190 H 07/21/21 07/21/21 07/21/21 03:26 04:09 05:08 Glucose 194 H POC Glucose 170 H 165 H 07/21/21 07/21/21 07/21/21 06:02 07:19 08:13 Glucose POC Glucose 135 H 161 H 185 H 07/21/21 09:19 Glucose POC Glucose 175 H OUTPATIENT ANTIDIABETIC REGIMEN: * Toujeo 15 units HS, Regular 15-30 units TIDM, metformin ASSESSMENT: * 46 year old with T2DM, gastroparesis, hld, bipolar, IBS, presenting to ER due to elevated blood sugars at home. Patient having multiple episodes of nighttime emesis and also reports that her Dexcom may not be working properly as fingerstick checks have been much higher. She recently was started on medrol dose pack prior to admission * Follows [facility] [place] outpatient for DM management, last visit 03/26/21 - at that time patient was Toujeo 60 units, regular insulin 15-25 units TIDM * Patient started on insulin drip overnight as AG elevated. Gap closed this AM, insulin drip now running at 4 units/hr, anticipate rate decreasing with NPO s tatus * Plan to give full stress of 3 Lantus for this AM (50 units x 1) to overlap with drip. Will monitor to see how BSGs trend and likely could d/c drip this afternoon if BSGs stable PLAN FOR INPATIENT GLYCEMIC CONTROL: * Insulin drip: 150-200 goal / continue for now * Basal insulin * Lantus 50 units x 1 - with overlap of insulin drip * Bolus insulin * per insulin calc PLAN FOR DISCHARGE: * Follows [facility] outpatient for DM management. Would encourage follow up with them once discharged
[2021-07-21] MEDS: MAGNESIUM SULFATE / D5W 1 GM/100 ML BAG IV SCH ×2 (10:16→12:07)
[2021-07-21 11:49] LABS: BUN Creatinine Ratio 15.2 (10-20); Calcium 7.5 mg/dl (8.5-10.1); Creatinine Clr Calc Pharmacy 140.9 ml/min; Est GFR (African American) 125.6 ml/min; Est GFR (Non-African American) 108.4 ml/min; Magnesium 1.9 mg/dl (1.8-2.4); Phosphorus 3.4 mg/dl (2.5-4.9); Potassium 3.6 mmol/L (3.5-5.1)
[2021-07-21 11:56] LABS: Hematocrit (blood only) 37.8 % (37-47); Hemoglobin 12.5 g/dL (12.0-16.0); Mean Corpuscular Hemoglobin 29.2 pg (25-34); Mean Corpuscular Hgb Conc 33.1 g/dL (32-36); Mean Corpuscular Volume 88.3 fL (80-100); Mean Platelet Volume 9.3 fL (7.4-10.4); Platelet Count 224 K/uL (130-400); RDW Standard Deviation 41.6 fL (36.4-46.3); Red Blood Count 4.28 M/uL (4.2-5.4); White Blood Count 8.31 K/uL (4.8-10.8)
[2021-07-21] MEDS ORDERED: POTASSIUM CHLORIDE CRTAB 20 MEQ TABCR PO STA (12:18)
[2021-07-21] MEDS ORDERED: METOCLOPRAMIDE HCL INJ 5 MG/ML 2 ML VIAL IV STA (14:15)
[2021-07-21 14:53] LABS: Albumin Level 2.6 gm/dl (3.4-5.0); BUN Creatinine Ratio 13.8 (10-20); Calcium 7.4 mg/dl (8.5-10.1); Creatinine Clr Calc Pharmacy 159.9 ml/min; Est GFR (African American) 130.9 ml/min; Magnesium 2.5 mg/dl (1.8-2.4); Phosphorus 3.3 mg/dl (2.5-4.9); Potassium 4.1 mmol/L (3.5-5.1)
[2021-07-21] MEDS ORDERED: INSULIN GLARGINE SOLOSTAR 100 UNITS/ML 3 ML PEN SC SCH (17:00)
[2021-07-21] MEDS: ENOXAPARIN INJ 40 MG/0.4 ML SYR SQ SCH (18:24)
[2021-07-21 19:44] LABS: BUN Creatinine Ratio 10.4 (10-20); Calcium 7.6 mg/dl (8.5-10.1); Est GFR (African American) 131.8 ml/min; Est GFR (Non-African American) 113.7 ml/min; Magnesium 2.3 mg/dl (1.8-2.4); Potassium 3.9 mmol/L (3.5-5.1)
[2021-07-21 19:46] LABS: Phosphorus 2.7 mg/dl (2.5-4.9)
[2021-07-21] MEDS: INSULIN HUMAN REGULAR SC SCH (20:49)
[2021-07-21] MEDS ORDERED: PANTOprazole 40 MG TAB PO SCH (21:00)
[2021-07-21 23:25] LABS: BUN Creatinine Ratio 11.4 (10-20); Calcium 7.5 mg/dl (8.5-10.1); Creatinine Clr Calc Pharmacy 202.8 ml/min; Est GFR (African American) 141.6 ml/min; Est GFR (Non-African American) 122.2 ml/min; Potassium 3.8 mmol/L (3.5-5.1)
[2021-07-22] MEDS ORDERED: INSULIN HUMAN REGULAR SC SCH (02:00)
[2021-07-22 04:12] LABS: Hematocrit (blood only) 38.6 % (37-47); Hemoglobin 12.7 g/dL (12.0-16.0); Mean Corpuscular Hemoglobin 29.4 pg (25-34); Mean Corpuscular Hgb Conc 32.9 g/dL (32-36); Mean Corpuscular Volume 89.4 fL (80-100); Mean Platelet Volume 9.6 fL (7.4-10.4); Platelet Count 226 K/uL (130-400); RDW Standard Deviation 42.3 fL (36.4-46.3); Red Blood Count 4.32 M/uL (4.2-5.4); White Blood Count 6.64 K/uL (4.8-10.8)
[2021-07-22 04:28] LABS: Albumin Level 2.6 gm/dl (3.4-5.0); BUN Creatinine Ratio 10.2 (10-20); Calcium 7.9 mg/dl (8.5-10.1); Est GFR (African American) 131.8 ml/min; Est GFR (Non-African American) 113.7 ml/min; Magnesium 2.2 mg/dl (1.8-2.4); Potassium 3.7 mmol/L (3.5-5.1)
[2021-07-22 04:56] LABS: Albumin Globulin Ratio 0.7 (0.9-2); Bilirubin,Total 0.3 mg/dl (0.2-1); Globulin 3.5 gm/dl (2.5-4.0); Phosphorus 2.8 mg/dl (2.5-4.9); Thyroid Stimulating Hormone 0.881 uIu/ml (0.300-4.500); Total Protein 6.1 gm/dl (6.4-8.2)
[2021-07-22 05:02] LABS: Folate (Folic Acid) 19.3 ng/ml (>5.38)
[2021-07-22 07:42] LABS: BUN Creatinine Ratio 8.8 (10-20); Calcium 7.6 mg/dl (8.5-10.1); Creatinine Clr Calc Pharmacy 170.1 ml/min; Est GFR (African American) 133.5 ml/min; Est GFR (Non-African American) 115.2 ml/min; Potassium 3.8 mmol/L (3.5-5.1)
[2021-07-22] MEDS: INSULIN HUMAN REGULAR SC SCH ×2 (08:23→12:33)
[2021-07-22] MEDS: ENOXAPARIN INJ 40 MG/0.4 ML SYR SQ SCH (08:26)
[2021-07-22] MEDS: SUCRALFATE 1 GM TAB PO SCH ×2 (08:26→12:33)
[2021-07-22] MEDS: FLUTICASONE PROPIONATE NA SPR 16 GM BTL SCH (08:27)
[2021-07-22] MEDS: UMECLIDINIUM BROMIDE 62.5MCG/BLISTER 7 PUFFS/INHALER INH SCH (08:27)
[2021-07-22] MEDS: rifAXIMin 550 MG TABLET PO SCH (08:27)
[2021-07-22] MEDS: FLUTICASONE FUROATE 200MCG 14 PUFFS/INHALER INH SCH (08:27)
[2021-07-22] MEDS: GABAPENTIN 300 MG CAP PO SCH (08:29)
--- NOTE | 2021-07-22 08:53 | Hospitalist Progress Note ---
Date of Service July 22, 2021 Assessment & Plan Admission and Anticipated Discharge Date Admission Date: July 21, 2021 Results & Data Results & Data ([facility]) Vital Signs (Past 12 Hours) Vital Signs Temp Pulse Pulse Resp BP Pulse Ox 07/22/21 04:00 37.0 C 77 18 119/82 92 07/22/21 00:45 80 07/22/21 00:12 36.8 C 89 18 125/81 93 Laboratory Results 07/22/21 07/22/21 07/22/21 Range/Units 07:47 06:48 03:36 WBC (4.8-10.8) K/uL RBC (4.2-5.4) M/uL Hgb (12.0-16.0) g/dL Hct (37-47) % MCV (80-100) fL MCH (25-34) pg MCHC (32-36) g/dL RDW Std Deviation (36.4-46.3) fL RDW Coeff of Weston (11.5-14.5) % Plt Count (130-400) K/uL MPV (7.4-10.4) fL Sodium 141 139 (136-145) mmol/L Potassium 3.8 3.7 (3.5-5.1) mmol/L Chloride 107 107 (98-107) mmol/L Carbon Dioxide 26 31 (21-32) mmol/L Anion Gap 8.0 1.0 L (3-11) BUN 4 L 5 L (7-18) mg/dl Creatinine 0.49 L 0.51 L (0.6-1.2) mg/dl Est Cr Clr Drug Dosing 170.1 163.0 ml/min Est GFR ( Amer) 133.5 131.8 ml/min Est GFR (Non-Af Amer) 115.2 113.7 ml/min BUN/Creatinine Ratio 8.8 L 10.2 (10-20) Glucose 151 H 140 H (70-99) mg/dl POC Glucose 173 H (70-99) mg/dl Calcium 7.6 L 7.9 L (8.5-10.1) mg/dl Phosphorus 2.8 (2.5-4.9) mg/dl Magnesium 2.2 (1.8-2.4) mg/dl Total Bilirubin 0.3 (0.2-1) mg/dl AST 89 H (15-37) U/L ALT 47 (12-78) U/L Alkaline Phosphatase 78 (45-117) U/L Total Protein 6.1 L D (6.4-8.2) gm/dl Albumin 2.6 L (3.4-5.0) gm/dl Globulin 3.5 (2.5-4.0) gm/dl Albumin/Globulin Ratio 0.7 L (0.9-2) Lipase (73-393) U/L Vitamin B12 (193-986) pg/ml Folate (>5.38) ng/ml TSH 0.881 (0.300-4.500) uIu/ml 07/22/21 07/22/21 07/22/21 Range/Units 03:36 03:36 02:21 WBC 6.64 (4.8-10.8) K/uL RBC 4.32 (4.2-5.4) M/uL Hgb 12.7 (12.0-16.0) g/dL Hct 38.6 (37-47) % MCV 89.4 (80-100) fL MCH 29.4 (25-34) pg MCHC 32.9 (32-36) g/dL RDW Std Deviation 42.3 (36.4-46.3) fL RDW Coeff of [place]on 13.0 (11.5-14.5) % Plt Count 226 (130-400) K/uL MPV 9.6 (7.4-10.4) fL Sodium (136-145) mmol/L Potassium (3.5-5.1) mmol/L Chloride (98-107) mmol/L Carbon Dioxide (21-32) mmol/L Anion Gap (3-11) BUN (7-18) mg/dl Creatinine (0.6-1.2) mg/dl Est Cr Clr Drug Dosing ml/min Est GFR ( Amer) ml/min Est GFR (Non-Af Amer) ml/min BUN/Creatinine Ratio (10-20) Glucose (70-99) mg/dl POC Glucose 130 H (70-99) mg/dl Calcium (8.5-10.1) mg/dl Phosphorus (2.5-4.9) mg/dl Magnesium (1.8-2.4) mg/dl Total Bilirubin (0.2-1) mg/dl AST (15-37) U/L ALT (12-78) U/L Alkaline Phosphatase (45-117) U/L Total Protein (6.4-8.2) gm/dl Albumin (3.4-5.0) gm/dl Globulin (2.5-4.0) gm/dl Albumin/Globulin Ratio (0.9-2) Lipase (73-393) U/L Vitamin B12 597 (193-986) pg/ml Folate 19.30 (>5.38) ng/ml TSH (0.300-4.500) uIu/ml 07/21/21 07/21/21 07/21/21 Range/Units 22:34 20:38 19:10 WBC (4.8-10.8) K/uL RBC (4.2-5.4) M/uL Hgb (12.0-16.0) g/dL Hct (37-47) % MCV (80-100) fL MCH (25-34) pg MCHC (32-36) g/dL RDW Std Deviation (36.4-46.3) fL RDW Coeff of Weston (11.5-14.5) % Plt Count (130-400) K/uL MPV (7.4-10.4) fL Sodium 141 142 (136-145) mmol/L Potassium 3.8 3.9 (3.5-5.1) mmol/L Chloride 108 H 109 H (98-107) mmol/L Carbon Dioxide 26 25 (21-32) mmol/L Anion Gap 8.0 8.0 (3-11) BUN 5 L 5 L (7-18) mg/dl Creatinine 0.41 L 0.51 L (0.6-1.2) mg/dl Est Cr Clr Drug Dosing 202.8 163.0 ml/min Est GFR ( Amer) 141.6 131.8 ml/min Est GFR (Non-Af Amer) 122.2 113.7 ml/min BUN/Creatinine Ratio 11.4 10.4 (10-20) Glucose 104 H 152 H (70-99) mg/dl POC Glucose 114 H (70-99) mg/dl Calcium 7.5 L 7.6 L (8.5-10.1) mg/dl Phosphorus 2.7 (2.5-4.9) mg/dl Magnesium 2.3 (1.8-2.4) mg/dl Total Bilirubin (0.2-1) mg/dl AST (15-37) U/L ALT (12-78) U/L Alkaline Phosphatase (45-117) U/L Total Protein (6.4-8.2) gm/dl Albumin (3.4-5.0) gm/dl Globulin (2.5-4.0) gm/dl Albumin/Globulin Ratio (0.9-2) Lipase (73-393) U/L Vitamin B12 (193-986) pg/ml Folate (>5.38) ng/ml TSH (0.300-4.500) uIu/ml 07/21/21 07/21/21 07/21/21 Range/Units 17:38 16:58 15:26 WBC (4.8-10.8) K/uL RBC (4.2-5.4) M/uL Hgb (12.0-16.0) g/dL Hct (37-47) % MCV (80-100) fL MCH (25-34) pg MCHC (32-36) g/dL RDW Std Deviation (36.4-46.3) fL RDW Coeff of Weston (11.5-14.5) % Plt Count (130-400) K/uL MPV (7.4-10.4) fL Sodium (136-145) mmol/L Potassium (3.5-5.1) mmol/L Chloride (98-107) mmol/L Carbon Dioxide (21-32) mmol/L Anion Gap (3-11) BUN (7-18) mg/dl Creatinine (0.6-1.2) mg/dl Est Cr Clr Drug Dosing ml/min Est GFR ( Amer) ml/min Est GFR (Non-Af Amer) ml/min BUN/Creatinine Ratio (10-20) Glucose (70-99) mg/dl POC Glucose 172 H 111 H 157 H (70-99) mg/dl Calcium (8.5-10.1) mg/dl Phosphorus (2.5-4.9) mg/dl Magnesium (1.8-2.4) mg/dl Total Bilirubin (0.2-1) mg/dl AST (15-37) U/L ALT (12-78) U/L Alkaline Phosphatase (45-117) U/L Total Protein (6.4-8.2) gm/dl Albumin (3.4-5.0) gm/dl Globulin (2.5-4.0) gm/dl Albumin/Globulin Ratio (0.9-2) Lipase (73-393) U/L Vitamin B12 (193-986) pg/ml Folate (>5.38) ng/ml TSH (0.300-4.500) uIu/ml 07/21/21 07/21/21 07/21/21 Range/Units 14:22 14:22 13:59 WBC (4.8-10.8) K/uL RBC (4.2-5.4) M/uL Hgb (12.0-16.0) g/dL Hct (37-47) % MCV (80-100) fL MCH (25-34) pg MCHC (32-36) g/dL RDW Std Deviation (36.4-46.3) fL RDW Coeff of Weston (11.5-14.5) % Plt Count (130-400) K/uL MPV (7.4-10.4) fL Sodium 140 (136-145) mmol/L Potassium 4.1 (3.5-5.1) mmol/L Chloride 107 (98-107) mmol/L Carbon Dioxide 24 (21-32) mmol/L Anion Gap 9.0 (3-11) BUN 7 (7-18) mg/dl Creatinine 0.52 L (0.6-1.2) mg/dl Est Cr Clr Drug Dosing 159.9 ml/min Est GFR ( Amer) 130.9 ml/min Est GFR (Non-Af Amer) 113.0 ml/min BUN/Creatinine Ratio 13.8 (10-20) Glucose 196 H (70-99) mg/dl POC Glucose 212 H (70-99) mg/dl Calcium 7.4 L (8.5-10.1) mg/dl Phosphorus 3.3 (2.5-4.9) mg/dl Magnesium 2.5 H (1.8-2.4) mg/dl Total Bilirubin (0.2-1) mg/dl AST (15-37) U/L ALT (12-78) U/L Alkaline Phosphatase (45-117) U/L Total Protein (6.4-8.2) gm/dl Albumin Cancelled 2.6 L (3.4-5.0) gm/dl Globulin (2.5-4.0) gm/dl Albumin/Globulin Ratio (0.9-2) Lipase Cancelled 136 (73-393) U/L Vitamin B12 (193-986) pg/ml Folate (>5.38) ng/ml TSH (0.300-4.500) uIu/ml 07/21/21 07/21/21 07/21/21 Range/Units 12:53 10:54 10:54 WBC 8.31 (4.8-10.8) K/uL RBC 4.28 (4.2-5.4) M/uL Hgb 12.5 (12.0-16.0) g/dL Hct 37.8 (37-47) % MCV 88.3 (80-100) fL MCH 29.2 (25-34) pg MCHC 33.1 (32-36) g/dL RDW Std Deviation 41.6 (36.4-46.3) fL RDW Coeff of Weston 13.0 (11.5-14.5) % Plt Count 224 (130-400) K/uL MPV 9.3 (7.4-10.4) fL Sodium 139 (136-145) mmol/L Potassium 3.6 D (3.5-5.1) mmol/L Chloride 105 (98-107) mmol/L Carbon Dioxide 27 (21-32) mmol/L Anion Gap 8.0 (3-11) BUN 9 D (7-18) mg/dl Creatinine 0.59 L (0.6-1.2) mg/dl Est Cr Clr Drug Dosing 140.9 ml/min Est GFR ( Amer) 125.6 ml/min Est GFR (Non-Af Amer) 108.4 ml/min BUN/Creatinine Ratio 15.2 (10-20) Glucose 202 H (70-99) mg/dl POC Glucose 213 H (70-99) mg/dl Calcium 7.5 L (8.5-10.1) mg/dl Phosphorus 3.4 D (2.5-4.9) mg/dl Magnesium 1.9 (1.8-2.4) mg/dl Total Bilirubin (0.2-1) mg/dl AST (15-37) U/L ALT (12-78) U/L Alkaline Phosphatase (45-117) U/L Total Protein (6.4-8.2) gm/dl Albumin (3.4-5.0) gm/dl Globulin (2.5-4.0) gm/dl Albumin/Globulin Ratio (0.9-2) Lipase (73-393) U/L Vitamin B12 (193-986) pg/ml Folate (>5.38) ng/ml TSH (0.300-4.500) uIu/ml 07/21/21 07/21/21 Range/Units 10:11 09:19 WBC (4.8-10.8) K/uL RBC (4.2-5.4) M/uL Hgb (12.0-16.0) g/dL Hct (37-47) % MCV (80-100) fL MCH (25-34) pg MCHC (32-36) g/dL RDW Std Deviation (36.4-46.3) fL RDW Coeff of Weston (11.5-14.5) % Plt Count (130-400) K/uL MPV (7.4-10.4) fL Sodium (136-145) mmol/L Potassium (3.5-5.1) mmol/L Chloride (98-107) mmol/L Carbon Dioxide (21-32) mmol/L Anion Gap (3-11) BUN (7-18) mg/dl Creatinine (0.6-1.2) mg/dl Est Cr Clr Drug Dosing ml/min Est GFR ( Amer) ml/min Est GFR (Non-Af Amer) ml/min BUN/Creatinine Ratio (10-20) Glucose (70-99) mg/dl POC Glucose 164 H 175 H (70-99) mg/dl Calcium (8.5-10.1) mg/dl Phosphorus (2.5-4.9) mg/dl Magnesium (1.8-2.4) mg/dl Total Bilirubin (0.2-1) mg/dl AST (15-37) U/L ALT (12-78) U/L Alkaline Phosphatase (45-117) U/L Total Protein (6.4-8.2) gm/dl Albumin (3.4-5.0) gm/dl Globulin (2.5-4.0) gm/dl Albumin/Globulin Ratio (0.9-2) Lipase (73-393) U/L Vitamin B12 (193-986) pg/ml Folate (>5.38) ng/ml TSH (0.300-4.500) uIu/ml PG Care Time/CCT Total # of Minutes Spent Total Time Spent with Patient: Total time spent is greater than 50% in coordination of care (as documented) at patient's floor/unit and/or counseling patient: Coding
[2021-07-22] MEDS ORDERED: INSULIN GLARGINE SOLOSTAR 100 UNITS/ML 3 ML PEN SC SCH (09:00)
[2021-07-22] MEDS: FLUTICASONE/VILANTEROL 200/25MCG 14 PUFFS/INHALER INH SCH (09:04)
--- NOTE | 2021-07-22 09:58 | Discharge Summary ---
Date of Service July 22, 2021 Admission HPI Per Admitting Provider Patient is a 46-year-old female with a past medical history of insulin-dependent diabetes, ARIELLE, hypothyroidism, hyperlipidemia, bipolar disorder, IBS, GERD, migraines, severe allergies, history of mastoiditis with gastroparesis who presents to the emergency department at the instruction of her physician for having elevated blood sugars at home. She notes that for the past few weeks she has been having multiple episodes of nighttime emesis that wakes her up from sleep. Over the last few days this is progressed to also include daytime emesis and she has been unable to keep much food down. She states that regardless of whether or not she takes her insulin her blood sugars have been in the 400's - 500's. She also states that her Dexcom has been reading blood sugars in the 300s whereas her fingerstick checks have been much higher. Changed to the sensor 2 days ago. She does have baseline abdominal pain and says this is worse just before she vomits. She is also had profuse mucousy diarrhea. She denies any fevers or chills. She has been experiencing increased thirst and increased urination secondary to that. She denies any dysuria. She does attest to having had blurry vision and headaches with the elevated blood sugar. She states that she had some chest tightness with improved with taking her inhaler regimen. She denies any chest pain or chest pressure. She does have longstanding peripheral neuropathy which worsens at nighttime but says that this has not gotten worse the last couple of days. She has received both of her Covid vaccinations. She recently was started on a Medrol Dosepak by her PCP supposedly to help with the ongoing work-up of oral swelling and burning that she has been experiencing. She says she took the pack for the last 2 days and has experienced no improvement in symptoms from this. She describes the pain as being mostly "[place]", increased thirst, burning of her oral mucosa when drinking carbonated beverages/water/milk. Admission Exam Per Admitting Provider Constitutional: obese, sitting in bed in NAD Eyes: EOMI, pupils equal and reactive bilaterally, no scleral icterus Cardiac: RRR, no murmurs, gallops or rubs. Normal S1, S2 Pulm: CTA BL, no wheezes, rhonchi, crackles or rubs, moving air well throughout both lungs Abd: soft, distended, TTP throughout, no rebound or guarding Extremities: 2+ peripheral pulses, no edema Neuro: no focal deficits, moving all 4 limbs, A&Ox3 Principal Diagnosis DKA Discharge Exam Constitutional: WN/WD, obese female sleeping in bed, easily arousable Eyes: EOMI, pupils equal and reactive bilaterally, no scleral icterus ENT: mmm, cracked lips, atrophic appearance to tongue, slightly shiny Cardiac: RRR, no murmurs, gallops or rubs. Normal S1, S2 Pulm: CTAB, no accessory muscle use, not tachypneic, no w/c/r, on room air Abd: +BS throughout, soft, tender to palpation throughout but without guarding or rigidity Extremities: 2+ peripheral pulses, no edema Neuro: no focal deficits, moving all 4 limbs Psych: A&Ox3 Discharge Data Allergies Allergy/AdvReac Type Severity Reaction Status Date / Time adhesive Allergy Intermediate skin Verified 08/04/21 15:09 redness, itchy bee venom protein (honey bee) Allergy Intermediate red Verified 08/04/21 15:09 welts/swelling > bruising citalopram AdvReac Intermediate jaw pain, Verified 08/04/21 15:09 headaches morphine AdvReac Intermediate localized Verified 08/04/21 15:09 reaction, redness/welts due to IV infiltration pollen extracts AdvReac Intermediate itchy Verified 08/04/21 15:09 eyes, scratchy throat, swollen eyes Consultations 07/20/21 21:48 ED Decision to Admit Stat Ordered Studies 07/20/21 23:15 CT abd pelvis IV con only Urgent Hospital Course (1) Metabolic acidosis: 46 yo F chronically ill patient with extensive PMH including IDDM2, bipolar disorder, GERD, Asthma, ARIELLE, admitted for management of metabolic acidosis with AG 13 from hyperglycemia/borderline DKA. No lactic checked on admission BSGs elevated to 500s at home, possible issue with her Dexcom. Also recently on Medrol dose pack for tongue swelling/pain which could have lead to current elevations In ER, BSG 379 with AG 13, Beta hydroxybutyrate elevated to 3.36, VBG 7.4 Pharmacy consulted for DKA --> Insulin gtt, IVF ordered --> anion gap closed, insulin gtt discontinued and transitioned to SSI Potassium and magnesium replacement ordered as needed while obtaining blood sugar control A1c 9.1 from prior 7.4 in April -- suspect non-compliance at home playing role as well as steroid use from frequent ED trips and recent medrol dose pack -- > ict educator on consult as dexcom with possible issues -- did watch aide check BSG this afternoon and was 212 and dexcom reading 231 at that time Follows with Endocrine locally, Y[facility] -- will need close f/u at d/c. She had already been in contact w/ Mr Yakov prior to d/c and plans to call tomorrow. --> Had been fairly well controlled but was in ER w migraine and given dexamethasone week prior and medrol dose pack by PCP and she was unaware these were steroids. --> Home regimen written down at home -- had gotten increased dose insulin AM of d/c and instructed to monitor for hypoglycemia at home and f/u tomorrow as above Also with DM gastroparesis worsening over past 2-3 weeks, follows with Dr. Adams (recent EGD April 2021 with chronic gastritis without h/pylori infxn) and CTAP was obtained --> No bowel obstruction or bowel wall thickening. Normal appendix. Hepatomegaly with hepatic steatosis. Prior cholecystectomy and hysterectomy. Continues on rifaximin, senna/docusate, pantoprazole, cholestyramine for ongoing IBS/GERD/Gastroparesis control and will order dose of reglan x 1 and continue to monitor Stated had some liquid BM, very hungry --> advanced to regular without issue Lipase elevated on admit (no pancreatits on imaging ) --> improved on repeat and tolerating diet (2) Acute hyperglycemia: as above in patient with DM and gastroparesis improved on repeat and felt stable for d/c -- f/u Endocrine tomorrow. Already called office today and waiting return call *Also contacted civil engineer to call Endocrine office and ensure patient followed up with to be taking her DM regimen appropriately No further steroids given and patient educated NOT to take the rest of medrol dose pack at d/c (3) Hypertension: and HLD Continued lisinopril, atorvastatin (4) Vomiting: antiemetics prn no further vomiting reported n/v and UA suspicious for infection -- sent on keflex empirically for tx of such given increased frequency. also with yeast and to continue topical antifungal (5) Allergic rhinitis: Asthma/Allergies: cont spiriva, flonse, flovent, symbicort, azelastine (6) Bipolar disorder: continued bupropion, mirtazapine (7) Gastro-esophageal reflux disease without esophagitis: continued protonix (8) Obstructive sleep apnea: non-compliant with CPAP -- rec continued discussion outpt (9) Hypothyroidism: Last TSH 2.February. Repeat 0.881 Continued levothyroxine 75mcg daily (10) Diabetes mellitus with gastroparesis: as above did get dose of reglan while inpatient -- consider continuing if helpful with PCP. (11) Tongue swelling: recently more of an issue with pain with spicy/salty foods no active lesions but does have some tongue swelling recently given medrol dose neelima by PCP without improvement and it comes and goes Checking B12 (on metformin)/folate to see if related to nutritional deficiency. WNL no issues swallowing/handling on secretions or maintaining airway. no new medications. does have hx celiac on chart, ?if any new dietary choices causing as well -- instructed to adhere to celiac diet at d/c and monitor dietary choices (12) Morbid obesity: encouraged dietary changes/increase exercise Total Time Total Time Spent Total Time Spent (In Minutes): 45 Discharge Plan Discharge Items Patient Disposition: Home - Self-Care Reason For Visit: DKA Discharge Diagnosis: DKA Goals: You have been hospitalized for an acute medical problem. During your stay at [facility], we have made an effort to correct the problem that brought you to the hospital while keeping you as comfortable as possible. Medications were used to bring your condition under control and your discharge instructions will include directions for any medications you should take after leaving the hospital. Please make sure you see your Primary Care Provider as part of your follow up plan. Activity: Resume your previous activity Non-emergency contact: Primary Care Provider and Specialist Call non-emergency contact if: you have any medication questions and your symptoms worsen Follow-up/Referrals: Alvin Nagy PA-C [Physician [employer] Assembler] - (THE ENDOCRINOLOGY OFFICE WILL CALL YOU TO SCHEDULE AN APPOINTMENT.) Lilibeth Sharma MD [Primary Care Provider] - 08/05/21 9:20 am Diet: Carb Consistent or DM2 and Heart Healthy Addtl Attending Provider Instructions: You have been hospitalized for elevated blood sugars, nausea, vomiting, diarrhea. You were found to be in beginning stages of DKA and you were provided IV insulin and pharmacy was consulted to help get your sugars under better control. This was likely due to the steroids given to you by your PCP and these should be discontinued. If you need steroids in the future you should discuss with your doctor increased insulin while on these to prevent issues in the future. family life educator saw you while in the hospital and your Dexcom is working appropriately. You should continue your usual medications at discharge and follow up with your test baker TOMORROW. You should monitor sugars tonight as you got more than your usual dose, and resume your usual dosing tomorrow but please confirm you are taking the correct doses of your medications and to continue to monitor for elevated or low readings. Your urine shows possible UTI and culture is pending. You are being sent with a prescription for antibiotic for Keflex (cephalexin) 250mg by mouth every six hours (4 times daily) for 5 days. Please follow up with your PCP in the next week. Please return to the ER for any symptoms that are concerning for you. It has been a pleasure taking care of you while you have been in the hospital. Take care! Pending Studies at Discharge: Yes Studies:: Urine cx- pin point growth Stand-Alone Forms: My [facility] Medications and DC Order Prescriptions: Continued naproxen 500 mg tablet 500 mg PO DAILY PRN (Reason: before activity to prevent headache) Qty: 30 RF: 1 cyclobenzaprine 10 mg tablet 10 mg PO HS Qty: 20 RF: 0 atorvastatin [Lipitor] 20 mg tablet 20 mg PO HS Qty: 90 RF: 3 albuterol sulfate 2.5 mg /3 mL (0.083 %) solution for nebulization 2.5 mg inhalation Q4H PRN (Reason: shortness of breath or wheezing) Qty: 75 RF: 0 levothyroxine [Synthroid] 75 mcg tablet 75 mcg PO HS Qty: 90 RF: 3 dicyclomine 10 mg capsule 10 mg PO TID PRN (Reason: IBS) Qty: 90 RF: 2 lisinopril [Zestril] 10 mg tablet 10 mg PO HS Qty: 90 RF: 1 sumatriptan succinate 6 mg/0.5 mL pen injector 6 mg subcut .COMPLEX Qty: 4 RF: 3 gabapentin 300 mg capsule 300 mg PO BID RF: 0 ketorolac 10 mg tablet 10 mg PO Q8H PRN (Reason: pain) Qty: 10 RF: 0 budesonide-formoterol [Symbicort] 160-4.5 mcg/actuation HFA aerosol inhaler 2 inh inhalation BID Qty: 1 RF: 6 epinephrine [EpiPen] 0.3 mg/0.3 mL auto-injector 0.3 mg IM DIRECTED PRN (Reason: Allergic Reaction) Qty: 1 RF: 3 Spiriva Respimat 1.25 mcg/actuation mist 2 puff inhalation QAM Qty: 4 RF: 11 polyethylene glycol 3350 [Miralax] 17 gram/dose powder 8.5 g PO DAILY PRN (Reason: constipation) Qty: 238 RF: 5 Xifaxan 550 mg tablet 550 mg PO TID 14 Days Qty: 42 RF: 0 Magic Mouthwash 300 mL mouthwash 15 ml mucous membrane .q 6 hours PRN (Reason: mouth pain) Qty: 300 RF: 1 ipratropium-albuterol 0.5 mg-3 mg(2.5 mg base)/3 mL solution for nebulization 3 ml INH Q8H PRN (Reason: Wheezing) RF: 0 sennosides-docusate sodium [Senokot-S] 8.6-50 mg tablet 1 - 2 tab-cap PO BID PRN (Reason: constipation) Qty: 60 RF: 2 aspirin 81 mg Tablet,Delayed Release (Dr/Ec) 81 mg PO HS RF: 0 meclizine 25 mg tablet 25 mg PO TID PRN (Reason: Dizziness) RF: 0 Flovent HFA 110 mcg/actuation HFA aerosol inhaler 2 puffs INH BID RF: 0 methocarbamol 500 mg tablet 500 mg PO Q8 PRN (Reason: Muscle Spasm) RF: 0 cholecalciferol (vitamin D3) [Vitamin D3] 50 mcg (2,000 unit) Capsule 100 mcg PO HS RF: 0 pantoprazole [Protonix] 40 mg tablet,delayed release (DR/EC) 40 mg PO HS RF: 0 triamcinolone acetonide 0.1 % lotion 1 applic topical HS RF: 0 prochlorperazine maleate [Compazine] 5 mg tablet 5 mg PO Q8H PRN (Reason: nausea and vomiting) Qty: 10 RF: 0 Medical Thc 1 dose inhalation DAILY PRN (Reason: Anxiety) RF: 0 metformin 500 mg tablet extended release 24 hr 1,000 mg PO BID RF: 0 acetaminophen [Acetaminophen Extra Strength] 500 mg Tablet 500 mg PO Q6H PRN (Reason: Pain) RF: 0 mirtazapine 30 mg tablet 30 mg PO HS RF: 0 bupropion HCl 100 mg tablet sustained-release 12 hr 100 mg PO HS RF: 0 sucralfate 1 gram tablet 1 g PO ACHS RF: 0 azelastine 137 mcg (0.1 %) aerosol,spray 2 spray INTRANASAL DAILY PRN (Reason: Congestion) RF: 0 ondansetron 4 mg tablet,disintegrating 4 mg PO Q8H PRN (Reason: nausea and vomiting) Qty: 7 RF: 0 Fasenra 30 mg/mL syringe 30 mg subcut UD RF: 0 No Action Novolin R Flexpen 100 unit/mL (3 mL) insulin pen 130 unit SUBCUT DAILY Qty: 45 RF: 5 fluticasone propionate [Flonase Allergy Relief] 50 mcg/actuation spray,suspension 1 spray intranasal Q12H Qty: 15.8 RF: 1 nystatin 100,000 unit/gram cream 1 applic topical BID Qty: 30 RF: 0 clotrimazole 10 mg ricki 10 mg mucous membrane TID PRN (Reason: jos) Qty: 90 RF: 2 Toujeo Max U-300 SoloStar 300 unit/mL (3 mL) insulin pen 50 - 60 unit SUBCUT HS RF: 0 cholestyramine (with sugar) 4 gram powder in packet 4 g PO BID PRN (Reason: NEEDED) RF: 0 Discharge Orders: Discharge Order (Routine); Ordered 07/22/21 Ordered By: Deidra Carey Admission Data Admit Date/Time: 07/20/21 23:13 Attending Provider: Sujatha Campbell Admit Provider: Emely Reza Primary Care Provider: Lilibeth Sharma Other Providers: Lana Olivera Other Interventions: Discharge Summary Assessment (RN) Last Done: 07/22/21 13:37 Supervising Physician Co-Signing Physician Notes PA Supervision Note: I personally saw and examined the patient. I verified all [place] points and agree with AZAM Carey with the following exceptions and/or additions: S-patient feeling much improved and blood sugars are controlled, acidosis resolved, tolerating p.o. O- Vitals reviewed Gen: [AAOx3, NAD, morbidly obese HEENT: Anicteric sclerae, EOMI CV: RRR no mgr nl S1S2 Pulm: CTAB no wcr Abd: +BS soft NT ND no masses or hernias Ext: No edema, 2+ DP pulses Skin: No rashes, warm/dry Neuro: Full strength throughout A/W-25-mkex-old female here with DKA, likely secondary to corticosteroid use. Resolved and improved, stable for discharge home Coding Level of Care Code D/C DAY MANAGEMENT >30 MINS Diagnoses Metabolic acidosis E87.2 Acute hyperglycemia R73.9 Hypertension I10 Hypertension type: essential hypertension Vomiting R11.10 Nausea presence: unspecified Vomiting Intractability: unspecified Vomiting type: unspecified Allergic rhinitis J30.9 Bipolar disorder F31.9 Gastro-esophageal reflux disease without esophagitis K21.9 Obstructive sleep apnea G47.33 Hypothyroidism E03.9 Hypothyroidism type: unspecified Diabetes mellitus with gastroparesis E11.43 Tongue swelling R22.0 Morbid obesity E66.01
[2021-07-22] MEDS ORDERED: FLUCONAZOLE 50 MG TAB PO ONE (10:13)
[2021-07-22 11:34] LABS: BUN Creatinine Ratio 6.5 (10-20); Calcium 8.2 mg/dl (8.5-10.1); Creatinine Clr Calc Pharmacy 146.2 ml/min; Est GFR (African American) 127.1 ml/min; Est GFR (Non-African American) 109.6 ml/min; Potassium 3.9 mmol/L (3.5-5.1)
--- NOTE | 2021-07-22 11:57 | Pharmacy Report ---
Pharmacy Glycemic Short Note 2 - Date of Service July 22, 2021 - Glycemic Short BSG Results (Last 24 hours): 07/21/21 07/21/21 07/21/21 10:54 12:53 13:59 Glucose 202 H POC Glucose 213 H 212 H 07/21/21 07/21/21 07/21/21 14:22 15:26 16:58 Glucose 196 H POC Glucose 157 H 111 H 07/21/21 07/21/21 07/21/21 17:38 19:10 20:38 Glucose 152 H POC Glucose 172 H 114 H 07/21/21 07/22/21 07/22/21 22:34 02:21 03:36 Glucose 104 H 140 H POC Glucose 130 H 07/22/21 07/22/21 07/22/21 06:48 07:47 11:03 Glucose 151 H 167 H POC Glucose 173 H OUTPATIENT ANTIDIABETIC REGIMEN: * Toujeo 15 units HS, Regular 15-30 units TIDM, metformin ASSESSMENT: 07/22 * Patient transitioned off insulin drip yesterday afternoon, had given 50 units of basal insulin to help with drip transition * Fasting BSG this AM 173 mg/dL - plan to continue with Lantus 50 units this AM, will continue stress of 3 for novolog 07/21 * 46 year old with T2DM, gastroparesis, hld, bipolar, IBS, presenting to ER due to elevated blood sugars at home. Patient having multiple episodes of nighttime emesis and also reports that her Dexcom may not be working properly as fingerstick checks have been much higher. She recently was started on medrol dose pack prior to admission * Follows [place] [facility] outpatient for DM management, last visit 03/26/21 - at that time patient was Toujeo 60 units, regular insulin 15-25 units TIDM * Patient started on insulin drip overnight as AG elevated. Gap closed this AM, insulin drip now running at 4 units/hr, anticipate rate decreasing with NPO st atus * Plan to give full stress of 3 Lantus for this AM (50 units x 1) to overlap with drip. Will monitor to see how BSGs trend and likely could d/c drip this afternoon if BSGs stable PLAN FOR INPATIENT GLYCEMIC CONTROL: * Basal insulin * Lantus 50 units daily * Bolus insulin * ACHS 110-140 / CF 15 / CR 5 PLAN FOR DISCHARGE: * 07/22 - Spoke to patient over the phone today as she is getting ready for discharge. She reports she takes closer to 20-25 units of longer acting insulin at home, but has the doses written down at home - doses per [place] [facility]. I talked to her about how we have been giving her much more insulin than her home needs currently. I did let her know that we gave her 50 units of long acting insulin this morning so she needs to monitor her blood sugars closely tonight. * She tells me that she will follow up with YAMINI Regan tomorrow for further insulin dosing instruction - Notified provider of plan
[2021-07-30] MEDS ORDERED: ALBUT/IPRATROP 3MG/0.5MG NEB 3 ML VIAL ONE (19:12)
== END 2021-07-22 14:13 | disposition home or self-care (01) ==
LOC: ED 18:30 → 2W 18:30 → SUATTDRO 23:13 → 2W 07-21 00:36
DX: Z79.899 Other long term (current) drug therapy; Z79.4 Long term (current) use of insulin; E66.01 Morbid (severe) obesity due to excess calories; K21.9 Gastro-esophageal reflux disease without esophagitis; Z86.73 Personal history of transient ischemic attack (TIA), and cerebral infarction without residual deficits; Z79.84 Long term (current) use of oral hypoglycemic drugs; Z79.890 Hormone replacement therapy; G47.33 Obstructive sleep apnea (adult) (pediatric); E87.2 Acidosis; I10 Essential (primary) hypertension; Z88.5 Allergy status to narcotic agent; E11.43 Type 2 diabetes mellitus with diabetic autonomic (poly)neuropathy; Z99.89 Dependence on other enabling machines and devices; F31.9 Bipolar disorder, unspecified; E11.65 Type 2 diabetes mellitus with hyperglycemia; Z91.030 Bee allergy status; Z91.19 Patient's noncompliance with other medical treatment and regimen; Z68.41 Body mass index [BMI] 40.0-44.9, adult; Z20.822 Contact with and (suspected) exposure to COVID-19; R11.10 Vomiting, unspecified; Z88.8 Allergy status to other drugs, medicaments and biological substances; J45.909 Unspecified asthma, uncomplicated; E03.9 Hypothyroidism, unspecified; R22.0 Localized swelling, mass and lump, head

== ENCOUNTER 2022-09-15 08:00 | Observation (INO) ==
[2022-09-15] MEDS ORDERED: SODIUM CHLORIDE 0.9% 1000ML 1,000 ML IV ONE (08:59)
--- NOTE | 2022-09-15 08:59 | Emergency Department Note ---
Impression & Plan Stroke-like symptom, Acute hyperglycemia ED Provider Note NAME: COURTNEY HELLER AGE: 47 SEX: F : 1975 ARRIVES VIA: Walk-In INFORMANT: Patient, ED PROVIDER(S): Robb Daniel DO CHIEF COMPLAINT: Strokelike symptoms HPI: The patient is a 47-year-old female who presented to the emergency department for an evaluation of strokelike symptoms. The patient's been seen her facility recently for similar complaints. She does have a history of TIA. She states that she started feeling not right at approximately 3:00 this morning. She denies having any vomiting but has had nausea as well as a headache all over her head. She denies having any trauma. She denies having any fever or chills. She has no difficulty walking. The patient states that he has been compliant with her outpatient medications. She has not seen her neurologist recently. The patient denies having any cough. She has had no lower extremity swelling. She also states that her significant other noticed a facial droop as well as difficulty with her speech. She was able to go to sleep but then awoke this morning with ongoing symptoms and this is why she came to the emergency department. ROS: See above HPI for pertinent positives & negatives. A total of 10 systems reviewed and were otherwise negative. PAST MEDICAL HISTORY: See Below PAST SURGICAL HISTORY: See Below FAMILY HISTORY: See Below SOCIAL HISTORY: See Below HOME MEDICATIONS: See Below ALLERGIES: See Below VITALS: See Below PHYSICAL EXAMINATION: GENERAL: Patient is awake alert in no acute distress patient is resting comfortably and showing no signs of anxiety EYES: The conjunctivae are clear. The pupils are round and reactive. EARS, NOSE, MOUTH AND THROAT: The nose is without any evidence of any deformity. NECK: The neck is nontender and supple. RESPIRATORY: Normal respiratory effort is noted there is no evidence of wheezing rhonchi or rales CARDIOVASCULAR: Regular rate and rhythm noted there no murmurs rubs or gallops normal S1 normal S2. GASTROINTESTINAL: The abdomen is soft. Abdomen is nontender. MUSCULOSKELETAL/EXTREMITIES: There is no evidence of gross deformity full range of motion is noted in the hips and shoulders. SKIN: There is no obvious evidence of any rash. There are no petechiae, pallor or cyanosis noted. NEUROLOGIC: Patient is awake alert and oriented x3. There was a drift in the left upper extremity. There is no facial droop appreciated. Speech was clear. MEDICAL DECISION MAKING: The patient is a 47-year-old female who presented to the emergency department for an evaluation of strokelike symptoms. The patient was complaining of symptoms that began at 3:00 in the morning. She was not made a stroke alert because she presented after the thrombolytic window. The patient has been seen her facility multiple times for similar complaints. Her most recent visit she did not stay for evaluation she left without being seen. I was able to review the patient's previous visits. I was also able to review the patient's previous angiography of the head and neck from the fall of last year. There is no abnormality noted. The patient did not have any abnormality noted on plain CT. She was not in atrial fibrillation. I discussed the patient's laboratory and radiographic studies with her. She was unable to get an MRI in the emergency department because of a history of claustrophobia. The patient's presenting symptoms did show some drift in the left upper extremity. She states that she had speech problems as well as a facial droop noted by her prior to com ing to the emergency department. She may require further inpatient work-up. For this reason I will discuss her case [facility] Triage Nursing notes reviewed. Prior medical records reviewed Vital Signs: reviewed and remarkable for elevated blood pressure. Differential diagnosis: Infection, dehydration, metabolic abnormality, hypo/hyperglycemia, electrolyte disturbance, anemia, hypoxia, cardiac sources, intracerebral event, toxicologic, neurologic, as well as other pathologies. ER treatment provided: See below Diagnostics interpreted by me: ECG: EKG was obtained in the emergency department. My interpretation is sinus rhythm at 82 bpm. There is no ectopy. There is no acute ST segment abnormalities noted. This was compared to a tracing from September 09, 2022. No changes were noted. Cardiac Monitoring: An order was placed for continuous cardiac monitoring. The monitor shows a rate of 76 bpm with sinus rhythm. Laboratory studies: As stated above and show below. Imaging studies: See below. Radiographic imaging was reviewed by myself Consultation(s): I discussed this case with Dr. Beth who is [facility] Past Med/Surg History Medical History Acute otitis media, right Allergic rhinitis Anxiety Asthma Uses rescue inhaler daily Breathing stable Bipolar disorder Chronic diarrhea Coital headache Depression Diabetes mellitus, type 2 IDDM Diabetic peripheral neuropathy associated with type 2 diabetes mellitus Fatty infiltration of liver Gastritis Gastro-esophageal reflux disease without esophagitis Well controlled and stable Gastroparesis Hiatal hernia Hip problem Left hip growth (plans for upcoming surgical removal) History of COVID-19 tested 09/10/21. cough and congestion. no hospitalization. Hx of irritable bowel syndrome Hyperlipidemia Hypertension Hypothyroidism Insomnia Migraines Morbid obesity Nasal congestion Obstructive sleep apnea Non-compliant with CPAP, could not tolerate Post traumatic stress disorder Regurgitation of food and abdominal pain/bloating : reason for EGD on 12/21/21 Sciatica TIA (transient ischemic attack) Remote (several years ago) Yeast dermatitis Surgical History History of anesthesia reaction "Slow to wake" History of arthroscopy of right shoulder History of bladder surgery suburethral sling with hysterectomy (2009) History of cholecystectomy History of colonoscopy History of esophagogastroduodenoscopy (EGD) EGD (02/06/20): [facility] at [facility] History of knee surgery Right History of myringotomy bilateral tubes (multiple) Right myringotomy tube (04/09/18): [place] [facility] [place] 118[place]) History of tonsillectomy History of tooth extraction History of tubal ligation S/P epidural steroid injection S/P laparoscopic assisted vaginal hysterectomy (LAVH) S/P tympanoplasty right ([address]ata) Family History Father Myocardial infarction Prostate cancer Diabetes Hypertension Mother , 2008 Myocardial infarction Dementia Diabetes Hypertension Other No significant family history Denies family history of Ovarian cancer Crohn's disease Breast cancer Colorectal cancer Ulcerative colitis Social History Smoking Status: Never smoker Tobacco Type: Cigarettes Second Hand Exposure: No; Hx Alcohol Use: No Hx Substance Use: Yes Last Used Substance: Days (ago) Substance Use Type Other:: medical marijuana Preferred Language: Syriac Communication Ability: Effective Visual Impairment: Partially Limited Hearing Ability: Normal Hat Braider Required: No Beliefs That Will Affect Care: None marital status: Current Living Situation: Spouse and Family Current Living Situation Comment: and ADAM current occupational status: disabled 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 Other Information That Helps Us Care for You: No Feels Safe at Home: Yes Safety Concerns: Feels Safe At This Time Childhood Exposure to Second-Hand Smoke: Yes Diet Comment: regular Dental Care, Regularly: Yes Physical Activity Frequency: Does not Exercise Seatbelt Use: always Sunscreen Use: Yes Assistive Devices: None Allergies Allergies Allergy/AdvReac Type Severity Reaction Status Date / Time adhesive Allergy Intermediate skin Verified 08/10/22 12:51 redness, itchy bee venom protein (honey bee) Allergy Intermediate red Verified 08/10/22 12:51 welts/swelling > bruising citalopram AdvReac Intermediate jaw pain, Verified 08/10/22 12:51 headaches morphine AdvReac Intermediate localized Verified 08/10/22 12:51 reaction, redness/welts due to IV infiltration pollen extracts AdvReac Intermediate itchy Verified 08/10/22 12:51 eyes, scratchy throat, swollen eyes Home Meds Home Medications Medication Instructions Recorded Confirmed meclizine 25 mg tablet 25 mg PO TID PRN Dizziness 11/30/19 08/10/22 ipratropium 0.5 mg-albuterol 3 mg 3 ml inhalation Q8H PRN Wheezing 01/10/20 08/10/22 (2.5 mg base)/3 mL nebulization soln fluticasone propionate 110 2 puffs inhalation BID 04/21/20 08/10/22 mcg/actuation HFA aerosol inhaler (Flovent HFA) azelastine 137 mcg (0.1 %) nasal 2 spray intranasal DAILY PRN 11/13/20 08/10/22 spray aerosol Congestion sucralfate 1 gram tablet 1 g PO ACHS 11/13/20 08/10/22 methocarbamol 500 mg tablet 500 mg PO Q8 PRN Muscle Spasm 11/30/20 08/05/22 cholecalciferol (vitamin D3) 50 100 mcg PO HS 01/26/21 08/10/22 mcg (2,000 unit) capsule (Vitamin D3) triamcinolone acetonide 0.1 % 1 applic topical HS 01/26/21 08/10/22 lotion Medical Thc 1 dose inhalation DAILY PRN Anxiety 04/05/21 08/10/22 acetaminophen 500 mg tablet 1,000 mg PO Q6H PRN Pain 06/12/21 08/10/22 (Acetaminophen Extra Strength) insulin glargine U-300 conc 300 50 - 60 unit subcut HS 08/04/21 08/10/22 unit/mL (3 mL) subcutaneous pen (Toujeo Max U-300 SoloStar) hydroxyzine HCl 50 mg tablet 50 mg PO BID 10/14/21 08/10/22 fluticasone propionate 50 1 spray intranasal Q2D PRN Nasal 11/23/21 08/10/22 mcg/actuation nasal Congestion spray,suspension sumatriptan succinate 6 mg/0.5 mL 6 mg subcut .COMPLEX PRN Migraine 11/23/21 08/10/22 subcutaneous pen injector Headache cyclobenzaprine 10 mg tablet 10 mg PO HS PRN Muscle Spasm 11/26/21 08/10/22 gabapentin 600 mg tablet 300 mg PO DAILY@1200 11/26/21 08/10/22 gabapentin 800 mg tablet 800 mg PO BID 11/26/21 08/10/22 terbinafine HCl 250 mg tablet 250 mg PO QAM 12/20/21 08/10/22 tiotropium bromide 1.25 2 puff inhalation QAM 03/31/22 08/10/22 mcg/actuation mist for inhalation (Spiriva Respimat) diclofenac sodium 1 % topical gel 2 g topical QID PRN Inflammation 07/08/22 08/10/22 Previous Rx's Medication Instructions Recorded sennosides 8.6 mg-docusate sodium 1 - 2 tab-cap PO BID PRN 07/20/20 50 mg tablet (Senokot-S) constipation #60 tabs naproxen 500 mg tablet 500 mg PO DAILY PRN before 10/05/20 activity to prevent headache #30 tabs polyethylene glycol 3350 17 8.5 g PO DAILY PRN constipation 10/08/20 gram/dose oral powder (Miralax) #238 grams epinephrine 0.3 mg/0.3 mL 0.3 mg (0.3 mL) IM DIRECTED PRN 01/27/21 injection, auto-injector (EpiPen) Allergic Reaction #1 ea atorvastatin 20 mg tablet (Lipitor) 20 mg PO HS #90 tabs 02/02/21 rifaximin 550 mg tablet (Xifaxan) 550 mg PO TID 14 days #42 tabs 03/02/21 clotrimazole 10 mg ricki 10 mg mucous membrane TID PRN 07/27/21 jos #90 tabs nystatin 100,000 unit/gram topical 1 applic topical BID #30 grams 08/04/21 cream silver sulfadiazine 1 % topical 1 applic topical BID #400 grams 09/08/21 cream (Silvadene) ketorolac 10 mg tablet 10 mg PO Q8H PRN pain #10 tabs 10/15/21 benzonatate 200 mg capsule 200 mg PO TID PRN cough #30 caps 10/28/21 loperamide 2 mg capsule (Imodium 2 mg PO Q6H PRN loose stool #30 11/04/21 A-D) caps insulin regular human 100 unit/mL 130 unit (1.3 mL) subcut DAILY #45 01/05/22 (3 mL) subcutaneous pen (Novolin R mL FlexPen) pantoprazole 40 mg tablet,delayed 40 mg PO HS GERD #90 tabs 01/13/22 release (Protonix) doxepin 25 mg capsule 25 mg PO DAILY #30 caps 01/28/22 cholestyramine (with sugar) 4 gram 4 g PO BID PRN NEEDED for 02/02/22 powder for susp in a packet diarrhea #60 ea budesonide-formoterol HFA 160 2 inh inhalation BID #1 inhaler 02/09/22 mcg-4.5 mcg/actuation aerosol inhaler (Symbicort) albuterol sulfate 2.5 mg/3 mL 2.5 mg (3 mL) inhalation Q4H PRN 02/16/22 (0.083 %) solution for nebulization shortness of breath or wheezing #75 mL phenylephrine 0.25 %-mineral oil 1 applic NV DAILY PRN 02/27/22 14 %-petrolatm 74.9 % rectal itching/irritation #56 grams ointment (Hemorrhoidal(phenyleph-min oil-petrolat)) blood sugar diagnostic (Accu-Chek #300 ea 02/28/22 Guide test strips) triamcinolone acetonide 0.1 % 1 applic topical DAILY #80 grams 04/23/22 topical cream permethrin 5 % topical cream 1 applic topical Q14D 2 doses #60 04/28/22 grams triamcinolone acetonide 0.5 % 1 applic topical BID 2 weeks #15 05/26/22 topical cream grams Saccharomyces boulardii 250 mg 250 mg PO BID #20 caps 07/10/22 capsule (Florastor) levothyroxine 75 mcg tablet 75 mcg PO HS #90 tabs 07/15/22 (Synthroid) duloxetine 20 mg capsule,delayed 20 mg PO BID #60 caps 07/19/22 release fluconazole 50 mg tablet 50 mg PO DAILY #30 tabs 08/05/22 ondansetron 4 mg disintegrating 4 mg PO Q6H PRN nausea and 08/05/22 tablet vomiting #14 tabs mupirocin 2 % topical ointment 1 applic topical TID #22 grams 08/10/22 triamcinolone acetonide 0.1 % 1 applic topical BID #30 grams 08/10/22 topical cream cephalexin 500 mg capsule 500 mg PO BID #10 caps 08/13/22 clindamycin phosphate 1 % topical 1 applic topical BID PRN 08/31/22 gel follicultiis #60 grams benralizumab 30 mg/mL subcutaneous 30 mg subcut .COMPLEX #1 mL 09/05/22 auto-injector insulin degludec 200 unit/mL (3 70 unit (0.35 mL) subcut TID #99 mL 09/06/22 mL) subcutaneous pen (Tresiba FlexTouch U-200 insulin) solifenacin 5 mg tablet (Vesicare) 5 mg PO DAILY #30 tabs 09/14/22 Results & Data (ED) Vital Signs Vital Signs - 24 hr 09/15/22 08:09 09/15/22 08:50 09/15/22 08:55 Temperature 36.5 C Temperature Source Skin Pulse Rate 95 H Pulse Rate [Apical] 84 Respiratory Rate 20 18 Respiratory Effort / Characteristics Non-Labored Spontaneous Non-Labored Spontaneous Respiratory Depth Normal Normal Respiratory Pattern Regular Blood Pressure 133/86 Blood Pressure [Right Arm] 130/89 Blood Pressure Mean 101 Blood Pressure Mean [Right Arm] 102 Pulse Oximetry 96 98 98 Oxygen Delivery Method Room Air Room Air Room Air Sepsis Recent Fever Within 48 Hours No Sepsis New/Unexplained Change in Mental Status N/A Sepsis Action Taken by Nursing No Action Required 09/15/22 10:49 09/15/22 09:36 Temperature Temperature Source Pulse Rate Pulse Rate [Apical] 76 76 Respiratory Rate 18 18 Respiratory Effort / Characteristics Non-Labored Spontaneous Non-Labored Spontaneous Respiratory Depth Normal Normal Respiratory Pattern Blood Pressure Blood Pressure [Right Arm] 139/84 142/81 H Blood Pressure Mean Blood Pressure Mean [Right Arm] 102 101 Pulse Oximetry 95 96 Oxygen Delivery Method Room Air Room Air Sepsis Recent Fever Within 48 Hours Sepsis New/Unexplained Change in Mental Status Sepsis Action Taken by Jail Medications Current Medication List: was personally reviewed by me Laboratory Data Attestation: I reviewed the patient's lab results. 09/15/22 08:50 09/15/22 08:50 Lab Results 09/15/22 09/15/22 09/15/22 Range/Units 08:50 08:50 08:50 WBC 5.22 (4.8-10.8) K/ul RBC 4.94 (3.93-5.22) M/uL Hgb 14.4 (12.0-16.0) g/dl Hct 42.0 (34.1-44.9) % MCV 85.0 (80.0-100.0) fL MCH 29.1 (25.0-34.0) pg MCHC 34.3 (32.0-36.0) g/dL RDW Std Deviation 36.5 (36.4-46.3) fL RDW Coeff of Weston 11.9 (11.5-14.5) % Plt Count 257 (130-400) K/uL MPV 9.4 (9.4-12.3) fL Immature Gran % (Auto) 0.2 % Neut % (Auto) 49.0 % Lymph % (Auto) 40.8 % [place] % (Auto) 7.3 % Eos % (Auto) 2.3 % Baso % (Auto) 0.4 % Neut # (Auto) 2.56 (1.4-6.5) K/uL Lymph # (Auto) 2.13 (1.2-3.4) K/uL [place] # (Auto) 0.38 (0.24-0.82) K/uL Eos # (Auto) 0.12 (0-0.50) K/uL Baso # (Auto) 0.02 (0-0.2) K/uL Immature Gran # (Auto) 0.01 (0.00-0.02) K/uL PT 10.3 (9.0-12.0) Seconds INR 1.0 (0.9-1.1) APTT 24.5 (21.0-31.0) Seconds PTT Ratio 0.9 Sodium 133 L (136-145) mmol/L Potassium 4.3 (3.5-5.1) mmol/L Chloride 95 L (98-107) mmol/L Carbon Dioxide 31 (21-32) mmol/L Anion Gap 7 (3-11) BUN 14 (6-23) mg/dl Creatinine 0.63 (0.6-1.2) mg/dl Est Cr Clr Drug Dosing 125.5 ml/min Est GFR ( Amer) 122.1 ml/min Est GFR (Non-Af Amer) 105.3 ml/min BUN/Creatinine Ratio 22.2 H (10-20) Glucose 589 H* (70-99(Fasting)) mg/dl POC Glucose (70-99) mg/dl Calcium 9.7 (8.5-10.1) mg/dl Magnesium 1.8 (1.7-2.4) mg/dl Total Bilirubin 0.4 (0.2-1.0) mg/dl AST 17 (13-39) U/L ALT 24 (7-52) U/L Alkaline Phosphatase 112 H (34-104) U/L Troponin I High Sens 3.0 (0-14) pg/ml Total Protein 7.2 (6.0-8.3) gm/dl Albumin 3.9 (3.4-5.0) gm/dl Globulin 3.3 (2.5-4.0) gm/dl Albumin/Globulin Ratio 1.2 (0.9-2) TSH (0.300-4.500) uIu/ml Urine Color Urine Appearance (Clear) Urine pH (4.5-7.5) Ur Specific Billingsley (1.000-1.030) Urine Protein (Negative) Urine Glucose (UA) (Negative) Urine Ketones (Negative) Urine Blood (Negative) Urine Nitrite (Negative) Urine Bilirubin (Negative) Urine Urobilinogen (Negative) Ur Leukocyte Esterase (Negative) SARS-CoV-2, RNA, NAAT (NEGATIVE) 09/15/22 09/15/22 09/15/22 Range/Units 08:50 08:50 08:56 WBC (4.8-10.8) K/ul RBC (3.93-5.22) M/uL Hgb (12.0-16.0) g/dl Hct (34.1-44.9) % MCV (80.0-100.0) fL MCH (25.0-34.0) pg MCHC (32.0-36.0) g/dL RDW Std Deviation (36.4-46.3) fL RDW Coeff of Weston (11.5-14.5) % Plt Count (130-400) K/uL MPV (9.4-12.3) fL Immature Gran % (Auto) % Neut % (Auto) % Lymph % (Auto) % [place] % (Auto) % Eos % (Auto) % Baso % (Auto) % Neut # (Auto) (1.4-6.5) K/uL Lymph # (Auto) (1.2-3.4) K/uL [place] # (Auto) (0.24-0.82) K/uL Eos # (Auto) (0-0.50) K/uL Baso # (Auto) (0-0.2) K/uL Immature Gran # (Auto) (0.00-0.02) K/uL PT (9.0-12.0) Seconds INR (0.9-1.1) APTT (21.0-31.0) Seconds PTT Ratio Sodium (136-145) mmol/L Potassium (3.5-5.1) mmol/L Chloride (98-107) mmol/L Carbon Dioxide (21-32) mmol/L Anion Gap (3-11) BUN (6-23) mg/dl Creatinine (0.6-1.2) mg/dl Est Cr Clr Drug Dosing ml/min Est GFR ( Amer) ml/min Est GFR (Non-Af Amer) ml/min BUN/Creatinine Ratio (10-20) Glucose (70-99(Fasting)) mg/dl POC Glucose 543 H* (70-99) mg/dl Calcium (8.5-10.1) mg/dl Magnesium (1.7-2.4) mg/dl Total Bilirubin (0.2-1.0) mg/dl AST (13-39) U/L ALT (7-52) U/L Alkaline Phosphatase (34-104) U/L Troponin I High Sens (0-14) pg/ml Total Protein (6.0-8.3) gm/dl Albumin (3.4-5.0) gm/dl Globulin (2.5-4.0) gm/dl Albumin/Globulin Ratio (0.9-2) TSH 1.872 (0.300-4.500) uIu/ml Urine Color Yellow Urine Appearance Clear (Clear) Urine pH 5.5 (4.5-7.5) Ur Specific Bill[place] 1.036 H (1.000-1.030) Urine Protein Negative (Negative) Urine Glucose (UA) 3+ H (Negative) Urine Ketones Negative (Negative) Urine Blood Negative (Negative) Urine Nitrite Negative (Negative) Urine Bilirubin Negative (Negative) Urine Urobilinogen Negative (Negative) Ur Leukocyte Esterase Negative (Negative) SARS-CoV-2, RNA, NAAT (NEGATIVE) 09/15/22 09/15/22 Range/Units 10:01 10:09 WBC (4.8-10.8) K/ul RBC (3.93-5.22) M/uL Hgb (12.0-16.0) g/dl Hct (34.1-44.9) % MCV (80.0-100.0) fL MCH (25.0-34.0) pg MCHC (32.0-36.0) g/dL RDW Std Deviation (36.4-46.3) fL RDW Coeff of Weston (11.5-14.5) % Plt Count (130-400) K/uL MPV (9.4-12.3) fL Immature Gran % (Auto) % Neut % (Auto) % Lymph % (Auto) % [place] % (Auto) % Eos % (Auto) % Baso % (Auto) % Neut # (Auto) (1.4-6.5) K/uL Lymph # (Auto) (1.2-3.4) K/uL [place] # (Auto) (0.24-0.82) K/uL Eos # (Auto) (0-0.50) K/uL Baso # (Auto) (0-0.2) K/uL Immature Gran # (Auto) (0.00-0.02) K/uL PT (9.0-12.0) Seconds INR (0.9-1.1) APTT (21.0-31.0) Seconds PTT Ratio Sodium (136-145) mmol/L Potassium (3.5-5.1) mmol/L Chloride (98-107) mmol/L Carbon Dioxide (21-32) mmol/L Anion Gap (3-11) BUN (6-23) mg/dl Creatinine (0.6-1.2) mg/dl Est Cr Clr Drug Dosing ml/min Est GFR ( Amer) ml/min Est GFR (Non-Af Amer) ml/min BUN/Creatinine Ratio (10-20) Glucose (70-99(Fasting)) mg/dl POC Glucose 439 H* (70-99) mg/dl Calcium (8.5-10.1) mg/dl Magnesium (1.7-2.4) mg/dl Total Bilirubin (0.2-1.0) mg/dl AST (13-39) U/L ALT (7-52) U/L Alkaline Phosphatase (34-104) U/L Troponin I High Sens (0-14) pg/ml Total Protein (6.0-8.3) gm/dl Albumin (3.4-5.0) gm/dl Globulin (2.5-4.0) gm/dl Albumin/Globulin Ratio (0.9-2) TSH (0.300-4.500) uIu/ml Urine Color Urine Appearance (Clear) Urine pH (4.5-7.5) Ur Specific [place] (1.000-1.030) Urine Protein (Negative) Urine Glucose (UA) (Negative) Urine Ketones (Negative) Urine Blood (Negative) Urine Nitrite (Negative) Urine Bilirubin (Negative) Urine Urobilinogen (Negative) Ur Leukocyte Esterase (Negative) SARS-CoV-2, RNA, NAAT NEGATIVE (NEGATIVE) Administered Medications Discontinued Medications Sodium Chloride (Nss 1000ml) 1,000 mls @ 999 mls/hr IV .Q1H1M ONE Stop: 09/15/22 09:59 Last Infusion: 09/15/22 10:15 Dose: 0 mls/hr Documented By: Admin: 09/15/22 09:09 Dose: 999 mls/hr Documented By: JOSTIN Insulin Human Regular (Novolin-R Insulin Per Unit Charge) 6 units IV NOW STA Stop: 09/15/22 09:23 Last Admin: 09/15/22 09:30 Dose: 6 units Documented By: JOSTIN Co-signed By: HS Imaging Data Radiologist's Impression: Chest X-Ray 09/15/22 08:36 XR chest 1V portable HISTORY: weakness COMPARISON: Chest 09/09/2022. FINDINGS: The cardiac silhouette remains mildly enlarged. The lungs are clear. No pleural effusions. No pneumothorax. IMPRESSION: Stable mild cardiomegaly. ACT 112: Negative or not required by law. Electronically signed by: Neftali Nascimento M.D. 09/15/2022 9:[address] 09/15/22 08:36 CT SCAN OF THE BRAIN WITHOUT IV CONTRAST CLINICAL HISTORY: Transient ischemic attack. COMPARISON STUDY: Prior CT scans of the brain, most recently dated 09/09/2022. TECHNIQUE: Unenhanced axial CT scan of the brain is performed from the vertex to the skull base. A dose lowering technique was utilized adhering to the principles of ALARA. CT DOSE: 638.56 mGycm FINDINGS: Brain parenchyma: The brain parenchyma is normal in appearance. There is no hemorrhage, mass effect, or evidence of acute territorial ischemia by CT criteria. Hernandez-white matter differentiation is preserved. No extra-axial fluid collection is seen. Ventricles, sulci, cisterns: Normal in configuration. Intracranial vasculature: The visualized intracranial vasculature at the skull base is normal in appearance. Calvarium: Unremarkable. Sinuses and mastoids: The visualized paranasal sinuses are clear. There is a large right mastoid effusion with evidence of previous right mastoid surgery. The left mastoid air cells are well pneumatized. Orbits: The bony orbits are grossly intact. IMPRESSION: There is no hemorrhage, mass effect, or evidence of acute territorial ischemia by CT criteria. No change from 09/09/2022. ACT 112: Negative or not required by law. Electronically signed by: Selvin Wang M.D. 09/15/2022 9:08 AM Discharge Plan Visit Data Chief Complaint: TIA Symptoms Stated Complaint: POSSIBLE STROKE ED Provider: Robb Daniel Discharge Problem: Stroke-like symptom, Acute hyperglycemia Patient Disposition: Admitted As Inpatient Discharge Instructions Interventions: ED Discharge Assessment Last Done: 09/15/22 13:06
--- NOTE | 2022-09-15 09:09 | CT Scan Report ---
CT SCAN OF THE BRAIN WITHOUT IV CONTRAST CLINICAL HISTORY: Transient ischemic attack. COMPARISON STUDY: Prior CT scans of the brain, most recently dated 09/09/2022. TECHNIQUE: Unenhanced axial CT scan of the brain is performed from the vertex to the skull base. A d ose lowering technique was utilized adhering to the principles of ALARA. CT DOSE: 638.56 mGycm FINDINGS: Brain parenchyma: The brain parenchyma is normal in appearance. There is no hemorrhage, mass effect, or evidence of acute territorial ischemia by CT criteria. Hernandez-white matter differentiation is preser sreedhar. No extra-axial fluid collection is seen. Ventricles, sulci, cisterns: Normal in configuration. Intracranial vasculature: The visualized intracranial vasculature at the skull base is normal in appe arance. Calvarium: Unremarkable. Sinuses and mastoids: The visualized paranasal sinuses are clear. There is a large right mastoid effu vasu with evidence of previous right mastoid surgery. The left mastoid air cells are well pneumatized . Orbits: The bony orbits are grossly intact. IMPRESSION: There is no hemorrhage, mass effect, or evidence of acute territorial ischemia by CT andersont kyler. No change from 09/09/2022. ACT 112: Negative or not required by law. Electronically signed by: Selvin Wang M.D. 09/15/2022 9:08 AM
[2022-09-15 09:10] LABS: Basophils # (auto) 0.02 K/uL (0-0.2); Basophils % (auto) 0.4 %; Eosinophils # (auto) 0.12 K/uL (0-0.50); Eosinophils % (auto) 2.3 %; Hemoglobin 14.4 g/dl (12.0-16.0); Immature Granulocytes # (auto) 0.01 K/uL (0.00-0.02); Immature Granulocytes % (auto) 0.2 %; Lymphocytes # (auto) 2.13 K/uL (1.2-3.4); Lymphocytes % (auto) 40.8 %; Mean Corpuscular Hemoglobin 29.1 pg (25.0-34.0); Mean Corpuscular Hgb Conc 34.3 g/dL (32.0-36.0); Mean Platelet Volume 9.4 fL (9.4-12.3); Monocytes # (auto) 0.38 K/uL (0.24-0.82); Monocytes % (auto) 7.3 %; Neutrophils # (auto) 2.56 K/uL (1.4-6.5); Platelet Count 257 K/uL (130-400); RDW Coefficient of Variation 11.9 % (11.5-14.5); RDW Standard Deviation 36.5 fL (36.4-46.3); Red Blood Count 4.94 M/uL (3.93-5.22); White Blood Count 5.22 K/ul (4.8-10.8)
[2022-09-15 09:14] LABS: Appearance Urine Clear (Clear); Bilirubin Urine Negative (Negative); Blood Urine Negative (Negative); Color Urine Yellow; Glucose Urine UA 3+ (Negative); Ketones Urine Negative (Negative); Leukocyte Esterase Urine Negative (Negative); Nitrite Urine Negative (Negative); Protein Urine Negative (Negative); Specific Gravity Urine 1.036 (1.000-1.030); Urobilinogen Urine Negative (Negative); pH Urine 5.5 (4.5-7.5)
--- NOTE | 2022-09-15 09:20 | Electrocardiogram Report ---
Test Reason : Blood Pressure : / mmHG Vent. Rate : 082 BPM Atrial Rate : 082 BPM P-R Int : 150 ms QRS Dur : 086 ms QT Int : 404 ms P-R-T Axes : 034 -36 034 degrees QTc Int : 472 ms Normal sinus rhythm Left axis deviation Abnormal ECG When compared with ECG of 09-SEP-2022 13:39, No significant change was found Confirmed by Franki De Leon ([id number]) on 09/15/2022 9:19:31 AM Referred By: REFERRED SELF Confirmed By:Franki De Leon
[2022-09-15] MEDS ORDERED: NovoLIN-R INSULIN PER UNIT CHARGE IV STA (09:22)
[2022-09-15 09:23] LABS: Partial Thromboplastin Ratio 0.9; Partial Thromboplastin Time 24.5 Seconds (21.0-31.0); Prothrombin Time 10.3 Seconds (9.0-12.0)
--- NOTE | 2022-09-15 09:38 | XRay Report ---
XR chest 1V portable HISTORY: weakness COMPARISON: Chest 09/09/2022. FINDINGS: The cardiac silhouette remains mildly enlarged. The lungs are clear. No pleural effusions. No pneumothorax. IMPRESSION: Stable mild cardiomegaly. ACT 112: Negative or not required by law. Electronically signed by: Neftali Nacsimento M.D. 09/15/2022 9:37 AM
[2022-09-15 09:54] LABS: Albumin Globulin Ratio 1.2 (0.9-2); Albumin Level 3.9 gm/dl (3.4-5.0); BUN Creatinine Ratio 22.2 (10-20); Bilirubin,Total 0.4 mg/dl (0.2-1.0); Calcium 9.7 mg/dl (8.5-10.1); Creatinine Clr Calc Pharmacy 125.5 ml/min; Est GFR (African American) 122.1 ml/min; Est GFR (Non-African American) 105.3 ml/min; Globulin 3.3 gm/dl (2.5-4.0); Magnesium 1.8 mg/dl (1.7-2.4); Potassium 4.3 mmol/L (3.5-5.1); Total Protein 7.2 gm/dl (6.0-8.3)
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
[2022-09-15] MEDS ORDERED: LORazepam 2 MG/1 ML VIAL IV PRN (13:45)
[2022-09-15] MEDS ORDERED: PHARMACY GLYCEMIC MGMT CONSULT PRN (13:45)
[2022-09-15] MEDS ORDERED: PHARMACIST DISCHARGE MED REC CONSULT PRN (13:45)
[2022-09-15] MEDS ORDERED: FLUARIX QUADRIVALENT 0.5 ML SYR IM ONE (14:41)
[2022-09-15] MEDS ORDERED: PNEUMOCOCCAL POLYSACCHARIDES 25 MCG/0.5 ML VIAL/SYR IM ONE (14:41)
--- NOTE | 2022-09-15 14:54 | Pharmacy Report ---
Pharmacy Glycemic Short Note 2 - Date of Service September 15, 2022 - Glycemic Short BSG Results (Last 24 hours): 09/15/22 09/15/22 09/15/22 08:50 08:56 10:01 Glucose 589 H* POC Glucose 543 H* 439 H* OUTPATIENT ANTIDIABETIC REGIMEN: * Tresiba 70 units TID * Novolin R 55 units BIDM (per diabetes notes) * HbA1C for tomorrow ASSESSMENT: * Ms Ramos is a 47 y/o F with a PMH of T2DM who presents with stroke-like symptoms. * Patient's BSGs in the ER were 589-543 (receiving 6 units IV insulin)- 439 mg/dL. * Extensively reviewed previous diabetes notes and [facility] pharmacy glycemic team notes. * Will initiate plan based upon previous data. Per discussion with provider, he would desire to forego insulin infusion at this time. * Lantus 50 units SQ x 1 (full weight-based stress of 3) with extra Lantus tonight if BSG remains greater than 250 mg/dL. * Novolog weight-based stress of 3 with overnight checks to establish 24 hour insulin requirements. * For lunch, patient ate prior to BSG check. DexCom reading 379 mg/dL after patient ate. Instructed nurse to only cover carbohydrates at this time. PLAN FOR INPATIENT GLYCEMIC CONTROL: * Basal insulin * Lantus 50 units SQ x 1 then 0-25 units SQ HS. Subsequent dose to be evaluated tomorrow * Bolus insulin * NovoLog per scale ACHS or Q6hrs while NPO * Goal Range: Low 110 mg/dL - High 140 mg/dL * Correction Factor: 15 mg/dL/unit * Nutritional / Prandial insulin per carb ratio of 1 unit per 5 grams CHO consumed
[2022-09-15] MEDS ORDERED: GLUCOSE 40% GEL 15 GM TUBE PO PRN (15:00)
[2022-09-15] MEDS ORDERED: LANTUS PER UNIT CHARGE SQ ONE (15:00)
[2022-09-15] MEDS ORDERED: CARBOHYDRATES FOR HYPOGLYCEMIA PO PRN (15:00)
[2022-09-15] MEDS ORDERED: GLUCOSE 10 TAB/TUBE PO PRN (15:00)
[2022-09-15] MEDS ORDERED: GLUCAGON FOR INJ 1 MG VIAL IM PRN (15:00)
[2022-09-15] MEDS ORDERED: DEXTROSE 50% 50 ML SYRINGE IV PRN (15:00)
[2022-09-15] MEDS: INSULIN ASPART PER UNIT SC SCH ×3 (15:03→21:49)
--- NOTE | 2022-09-15 16:19 | Ultrasound Report ---
US venous doppler LE LT CLINICAL HISTORY: left calf pain r/o DVT TECHNIQUE: Left lower extremity real-time compression venous ultrasound with Color Doppler imaging. U tilizing real-time ultrasonic imaging multiple real time high-resolution ultrasonic images with compr ession and noncompression maneuvers of the deep venous system in addition to color doppler imaging we re performed from the common femoral vein through the proximal calf veins. COMPARISON: None available at the time of this dictation. FINDINGS: Currently there is normal compressibility of the deep venous system from the common femoral vein thro ugh the proximal calf veins. No superficial venous thrombosis is identified. Impression: No evidence of deep venous thrombus. ACT 112: Negative or not required by law. Electronically signed by: David Kimble M.D. 09/15/2022 4:18 PM
--- NOTE | 2022-09-15 17:57 | Magnetic Resonance Report ---
MR brain wo con CLINICAL HISTORY: left sided weakness and facial droop TECHNIQUE: Multiplanar and multisequence MR images of the brain were obtained without intravenous con trast. Comparison: Comparison is made to MRI brain 06/07/2014 FINDINGS: No abnormal restricted diffusion is identified. The white matter is unremarkable. The ventricular sys tem is normal in appearance. No mass is seen. There is no mass effect or midline shift. There is no e vidence of acute intraparenchymal hemorrhage. No extra axial fluid collections are seen. The corpus c allosum, pituitary gland, and cerebellar tonsils appear grossly unremarkable. Flow voids of the major intracranial arterial vessels are identified. The imaged portions of the para nasal sinuses, mastoid air cells, and orbits are unremarkable. IMPRESSION: No acute abnormality and in particular no evidence of acute infarct. ACT 112: Negative or not required by law. Electronically signed by: David Kimble M.D. 09/15/2022 5:55 PM
[2022-09-15] MEDS ORDERED: LANTUS PER UNIT CHARGE SQ SCH (21:00)
[2022-09-15] MEDS: ACETAMINOPHEN 325 MG TAB PO PRN (22:02)
[2022-09-16] MEDS: INSULIN ASPART PER UNIT SC SCH ×5 (00:12→17:03)
[2022-09-16] MEDS: ACETAMINOPHEN 325 MG TAB PO PRN (07:01)
[2022-09-16 07:29] LABS: Basophils # (auto) 0.04 K/uL (0-0.2); Basophils % (auto) 0.6 %; Eosinophils # (auto) 0.18 K/uL (0-0.50); Eosinophils % (auto) 2.8 %; Hematocrit (blood only) 42.2 % (34.1-44.9); Hemoglobin 14.6 g/dl (12.0-16.0); Immature Granulocytes # (auto) 0.01 K/uL (0.00-0.02); Immature Granulocytes % (auto) 0.2 %; Lymphocytes # (auto) 2.56 K/uL (1.2-3.4); Lymphocytes % (auto) 40.1 %; Mean Corpuscular Hemoglobin 29.5 pg (25.0-34.0); Mean Corpuscular Hgb Conc 34.6 g/dL (32.0-36.0); Mean Corpuscular Volume 85.3 fL (80.0-100.0); Mean Platelet Volume 9.1 fL (9.4-12.3); Monocytes # (auto) 0.38 K/uL (0.24-0.82); Neutrophils # (auto) 3.21 K/uL (1.4-6.5); Neutrophils % (auto) 50.3 %; Platelet Count 250 K/uL (130-400); Red Blood Count 4.95 M/uL (3.93-5.22); White Blood Count 6.38 K/ul (4.8-10.8)
[2022-09-16 07:56] LABS: BUN Creatinine Ratio 30.8 (10-20); Calcium 8.8 mg/dl (8.5-10.1); Chol HDL Ratio 5.9 (0-5); Creatinine Clr Calc Pharmacy 151.9 ml/min; Est GFR (Non-African American) 112.2 ml/min; Potassium 3.7 mmol/L (3.5-5.1)
[2022-09-16] MEDS ORDERED: FLUTICASONE PROPIONATE NA SPR 16 GM BTL NAE PRN (08:21)
[2022-09-16] MEDS ORDERED: MECLIZINE HCL 25 MG TAB PO PRN (08:21)
[2022-09-16] MEDS ORDERED: ALBUTEROL 0.083% NEBU SOLN 3 ML VIAL INH PRN (08:21)
[2022-09-16] MEDS ORDERED: ACETAMINOPHEN 500 MG TAB PO PRN (08:21)
[2022-09-16] MEDS ORDERED: LOPERAMIDE HCL 2 MG CAP PO PRN (08:21)
[2022-09-16] MEDS ORDERED: NAPROXEN 250 MG TAB PO PRN (08:21)
[2022-09-16] MEDS ORDERED: SUMAtriptan succinate 6 MG/0.5 ML VIAL SQ PRN (08:25)
[2022-09-16] MEDS ORDERED: CHOLESTYRAMINE LIGHT 4 GM PKT PO PRN (08:46)
[2022-09-16] MEDS ORDERED: UMECLIDINIUM BROMIDE 62.5MCG/BLISTER 7 PUFFS/INHALER INH SCH (09:00)
[2022-09-16] MEDS ORDERED: LANTUS PER UNIT CHARGE SQ SCH ×2 (09:00→21:00)
[2022-09-16] MEDS ORDERED: GABAPENTIN 800 MG TAB PO SCH (09:00)
[2022-09-16] MEDS ORDERED: FLUTICASONE/VILANTEROL 200/25MCG 14 PUFFS/INHALER INH SCH (09:00)
[2022-09-16] MEDS ORDERED: hydrOXYzine HCl 25 MG TAB PO SCH (09:00)
[2022-09-16] MEDS ORDERED: DULoxetine HCL 20 MG CAP PO SCH (09:00)
[2022-09-16 09:09] LABS: Estimated Average Glucose 283 mg/dl; Hemoglobin A1C 11.5 % (4.5-5.6)
--- NOTE | 2022-09-16 11:09 | Neurology Consultation ---
Date of Consultation September 16, 2022 Assessment & Plan (1) Facial paresthesia: (2) Occipital headache: (3) H/O concussion: (4) Migraines: (5) Diabetic peripheral neuropathy associated with type 2 diabetes mellitus: Plan 47-year-old female with a history of poorly controlled type 2 diabetes mellitus, diabetic peripheral neuropathy, history of recurrent falls with several probable concussions, intermittent occipital headaches, and associated left facial paresthesias, primarily just anterior to the left ear. Patient's neurological examination is generally intact although she does have evidence of a length dependent sensory loss and associated diminished deep tendon reflexes consistent with her history of diabetic peripheral neuropathy. Patient's facial sensory and motor function are intact. She does not have any signs of a Maddox's palsy or hemiparesis. I suspect that her occipital headaches are primarily musculoskeletal in etiology and at least in part related to several prior falls and associated concussion. She does endorse a history of migraine, however, and I am unable to completely exclude the possibility that her current headache is migrainous. She does have some light sensitivity. No recent aura. The intermittent left facial numbness, just anterior to the left ear is of uncertain etiology. Again, no abnormality seen on MRI or general neurological examination. Her symptoms do not sound typical for trigeminal neuralgia. She does not have any associated symptoms that would otherwise localized to the left ear such as hearing loss, tinnitus, or ear fullness. Although she does have what looks like a healing scattered vesicular rash, the distribution is somewhat generalized, on both sides of the face, and probably not consistent with shingles. Her symptoms do not seem consistent with postherpetic neuralgia. Again, at this point, I suspect her symptoms including occipital headache, and associated paresthesias just anterior to the left ear are due to musculoskeletal factors in the context of several falls. She may have some associated occipital and auricular neuralgia as well. Because her symptoms are not highly suggestive of stroke and she has an intact neurological examination, I do not think she requires another CT angiogram of the head and neck at this time. Again, this testing was last done in May 2022 and was unremarkable. It is reassuring that her brain MRI is normal as well, without evidence of stroke or other significant pathology. Furthermore, she had a fairly normal-appearing CT of the cervical spine completed this past June. She does not have signs and symptoms that would suggest a cervical myelopathy, therefore I do not think an MRI of the cervical spine is immediately necessary. Patient's headaches would likely benefit from physical therapy. I see that she is already prescribed gabapentin, Cymbalta, and doxepin as an outpatient. I see no reason to change any of these medications at this time. I considered adding topiramate for migraine prevention although she does have a history of kidney stones and this medication would probably be best avoided. For the time being, would consider using a nonsteroidal anti-inflammatory medication such as naproxen or meloxicam along with a muscle relaxant such as cyclobenzaprine or tizanidine to address her headaches. Imitrex injections may be utilized for acute migraine treatment as ordered. No further immediate recommendations. May follow-up with myself or an BREANN in clinic in 3 to 4 weeks for ongoing management of migraine, postconcussive symptoms, diabetic peripheral neuropathy. However, the patient's symptoms are refractory to medication and physical therapy, would consider a referral to the pain clinic. History of Present Illness Reason for Consultation: stroke like sxs? Requesting Physician: Mike Beth MD Attending Physician: Sujatha Campbell MD History of Present Illness The patient is a 47-year-old female who presented to the emergency department yesterday morning for further assessment of intermittent left facial numbness, primarily just anterior to the left ear, and occurring with associated occipital headache with some associated nausea and light sensitivity. Patient's symptoms began after falling in mid-to-late August, she apparently struck the back of her head. I see that she was seen in the emergency department at that time, August 23, 2022 for this issue, had fallen on the ice and had injured her right wrist as well. She was seen again in the emergency department, 6 days later, for persistent headache. It looks like they had presented to the emergency department again, on September 09 although left without being seen. She does endorse a history of migraine. She also has diabetic peripheral neuropathy for which she had an EMG completed with Dr. Estrada this past April. She does endorse a history of migraine, and perhaps migraine with aura as well although she describes the aura as blurry vision and dots. She believes she may have experienced a more typical migrainous aura, fortification spectra, scotoma, at least on a few occasions in the past. I see that she was seen in the emergency department this past May for strokelike symptoms and had an unremarkable CT angiogram of the head and neck at that time although there was evidence of multinodular thyroid and evidence of prior surgery for right mastoiditis, also endorsed by the patient. She had presented with right-sided numbness and heaviness at that time. She had presented to the emergency department this past April for a rash. Allergies Allergy/AdvReac Type Severity Reaction Status Date / Time adhesive Allergy Intermediate skin Verified 08/10/22 12:51 redness, itchy bee venom protein (honey bee) Allergy Intermediate red Verified 08/10/22 12:51 welts/swelling > bruising citalopram AdvReac Intermediate jaw pain, Verified 08/10/22 12:51 headaches morphine AdvReac Intermediate localized Verified 08/10/22 12:51 reaction, redness/welts due to IV infiltration pollen extracts AdvReac Intermediate itchy Verified 08/10/22 12:51 eyes, scratchy throat, swollen eyes Home Medications Medication Instructions Recorded Confirmed Type meclizine 25 mg tablet 25 mg PO TID PRN Dizziness 11/30/19 09/16/22 History ipratropium 0.5 mg-albuterol 3 mg 3 ml inhalation Q8H PRN Wheezing 01/10/20 08/10/22 History (2.5 mg base)/3 mL nebulization soln fluticasone propionate 110 2 puffs inhalation BID 04/21/20 09/16/22 History mcg/actuation HFA aerosol inhaler (Flovent HFA) sennosides 8.6 mg-docusate sodium 1 - 2 tab-cap PO BID PRN 07/20/20 09/16/22 Rx 50 mg tablet (Senokot-S) constipation #60 tabs naproxen 500 mg tablet 500 mg PO DAILY PRN before 10/05/20 09/16/22 Rx activity to prevent headache #30 tabs polyethylene glycol 3350 17 8.5 g PO DAILY PRN constipation 10/08/20 09/16/22 Rx gram/dose oral powder (Miralax) #238 grams azelastine 137 mcg (0.1 %) nasal 2 spray intranasal DAILY PRN 11/13/20 09/16/22 History spray aerosol Congestion sucralfate 1 gram tablet 1 g PO ACHS 11/13/20 09/16/22 History methocarbamol 500 mg tablet 500 mg PO Q8 PRN Muscle Spasm 11/30/20 08/05/22 History cholecalciferol (vitamin D3) 50 100 mcg PO HS 01/26/21 09/16/22 History mcg (2,000 unit) capsule (Vitamin D3) triamcinolone acetonide 0.1 % 1 applic topical HS 01/26/21 08/10/22 History lotion epinephrine 0.3 mg/0.3 mL 0.3 mg (0.3 mL) IM DIRECTED PRN 01/27/21 09/16/22 Rx injection, auto-injector (EpiPen) Allergic Reaction #1 ea atorvastatin 20 mg tablet (Lipitor) 20 mg PO HS #90 tabs 02/02/21 09/16/22 Rx rifaximin 550 mg tablet (Xifaxan) 550 mg PO TID 14 days #42 tabs 03/02/21 09/16/22 Rx Medical Thc 1 dose inhalation DAILY PRN Anxiety 04/05/21 08/10/22 History acetaminophen 500 mg tablet 1,000 mg PO Q6H PRN Pain 06/12/21 09/16/22 History (Acetaminophen Extra Strength) clotrimazole 10 mg ricki 10 mg mucous membrane TID PRN 07/27/21 09/16/22 Rx jos #90 tabs insulin glargine U-300 conc 300 50 - 60 unit subcut HS 08/04/21 08/10/22 History unit/mL (3 mL) subcutaneous pen (Toujeo Max U-300 SoloStar) nystatin 100,000 unit/gram topical 1 applic topical BID #30 grams 08/04/21 09/16/22 Rx cream silver sulfadiazine 1 % topical 1 applic topical BID #400 grams 09/08/21 09/16/22 Rx cream (Silvadene) hydroxyzine HCl 50 mg tablet 50 mg PO BID 10/14/21 09/16/22 History ketorolac 10 mg tablet 10 mg PO Q8H PRN pain #10 tabs 10/15/21 09/16/22 Rx benzonatate 200 mg capsule 200 mg PO TID PRN cough #30 caps 10/28/21 09/16/22 Rx loperamide 2 mg capsule (Imodium 2 mg PO Q6H PRN loose stool #30 11/04/21 09/16/22 Rx A-D) caps fluticasone propionate 50 1 spray intranasal Q2D PRN Nasal 11/23/21 09/16/22 History mcg/actuation nasal Congestion spray,suspension sumatriptan succinate 6 mg/0.5 mL 6 mg subcut .COMPLEX PRN Migraine 11/23/21 09/16/22 History subcutaneous pen injector Headache cyclobenzaprine 10 mg tablet 10 mg PO HS PRN Muscle Spasm 11/26/21 09/16/22 History gabapentin 600 mg tablet 300 mg PO DAILY@1200 11/26/21 09/16/22 History gabapentin 800 mg tablet 800 mg PO BID 11/26/21 09/16/22 History terbinafine HCl 250 mg tablet 250 mg PO QAM 12/20/21 09/16/22 History insulin regular human 100 unit/mL 130 unit (1.3 mL) subcut DAILY #45 01/05/22 08/10/22 Rx (3 mL) subcutaneous pen (Novolin R mL FlexPen) pantoprazole 40 mg tablet,delayed 40 mg PO HS GERD #90 tabs 01/13/22 09/16/22 Rx release (Protonix) doxepin 25 mg capsule 25 mg PO DAILY #30 caps 01/28/22 09/16/22 Rx cholestyramine (with sugar) 4 gram 4 g PO BID PRN NEEDED for 02/02/22 09/16/22 Rx powder for susp in a packet diarrhea #60 ea budesonide-formoterol HFA 160 2 inh inhalation BID #1 inhaler 02/09/22 09/16/22 Rx mcg-4.5 mcg/actuation aerosol inhaler (Symbicort) albuterol sulfate 2.5 mg/3 mL 2.5 mg (3 mL) inhalation Q4H PRN 02/16/22 09/16/22 Rx (0.083 %) solution for nebulization shortness of breath or wheezing #75 mL phenylephrine 0.25 %-mineral oil 1 applic MS DAILY PRN 02/27/22 08/10/22 Rx 14 %-petrolatm 74.9 % rectal itching/irritation #56 grams ointment (Hemorrhoidal(phenyleph-min oil-petrolat)) blood sugar diagnostic (Accu-Chek #300 ea 02/28/22 08/10/22 Rx Guide test strips) tiotropium bromide 1.25 2 puff inhalation QAM 03/31/22 09/16/22 History mcg/actuation mist for inhalation (Spiriva Respimat) triamcinolone acetonide 0.1 % 1 applic topical DAILY #80 grams 04/23/22 08/10/22 Rx topical cream permethrin 5 % topical cream 1 applic topical Q14D 2 doses #60 04/28/22 09/16/22 Rx grams triamcinolone acetonide 0.5 % 1 applic topical BID 2 weeks #15 05/26/22 09/16/22 Rx topical cream grams diclofenac sodium 1 % topical gel 2 g topical QID PRN Inflammation 07/08/22 09/16/22 History Saccharomyces boulardii 250 mg 250 mg PO BID #20 caps 07/10/22 09/16/22 Rx capsule (Florastor) levothyroxine 75 mcg tablet 75 mcg PO HS #90 tabs 07/15/22 09/16/22 Rx (Synthroid) duloxetine 20 mg capsule,delayed 20 mg PO BID #60 caps 07/19/22 09/16/22 Rx release fluconazole 50 mg tablet 50 mg PO DAILY #30 tabs 08/05/22 09/16/22 Rx ondansetron 4 mg disintegrating 4 mg PO Q6H PRN nausea and 08/05/22 09/16/22 Rx tablet vomiting #14 tabs mupirocin 2 % topical ointment 1 applic topical TID #22 grams 08/10/22 08/10/22 Rx triamcinolone acetonide 0.1 % 1 applic topical BID #30 grams 08/10/22 08/10/22 Rx topical cream cephalexin 500 mg capsule 500 mg PO BID #10 caps 08/13/22 09/16/22 Rx clindamycin phosphate 1 % topical 1 applic topical BID PRN 08/31/22 09/16/22 Rx gel follicultiis #60 grams benralizumab 30 mg/mL subcutaneous 30 mg subcut .COMPLEX #1 mL 09/05/22 Rx auto-injector insulin degludec 200 unit/mL (3 70 unit (0.35 mL) subcut TID #99 mL 09/06/22 Rx mL) subcutaneous pen (Tresiba FlexTouch U-200 insulin) solifenacin 5 mg tablet (Vesicare) 5 mg PO DAILY #30 tabs 09/14/22 09/16/22 Rx Patient History Medical History Acute otitis media, right Allergic rhinitis Anxiety Asthma Uses rescue inhaler daily Breathing stable Bipolar disorder Chronic diarrhea Coital headache Depression Diabetes mellitus, type 2 IDDM Diabetic peripheral neuropathy associated with type 2 diabetes mellitus Fatty infiltration of liver Gastritis Gastro-esophageal reflux disease without esophagitis Well controlled and stable Gastroparesis Hiatal hernia Hip problem Left hip growth (plans for upcoming surgical removal) History of COVID-19 tested 09/10/21. cough and congestion. no hospitalization. Hx of irritable bowel syndrome Hyperlipidemia Hypertension Hypothyroidism Insomnia Migraines Morbid obesity Nasal congestion Obstructive sleep apnea Non-compliant with CPAP, could not tolerate Post traumatic stress disorder Regurgitation of food and abdominal pain/bloating : reason for EGD on 12/21/21 Sciatica TIA (transient ischemic attack) Remote (several years ago) Yeast dermatitis Surgical History History of anesthesia reaction "Slow to wake" History of arthroscopy of right shoulder History of bladder surgery suburethral sling with hysterectomy (2009) History of cholecystectomy History of colonoscopy History of esophagogastroduodenoscopy (EGD) EGD (02/06/20): MAC at [facility] History of knee surgery Right History of myringotomy bilateral tubes (multiple) Right myringotomy tube (04/09/18): [place]#4 [place] [facility] [place] at time was 118kg) History of tonsillectomy History of tooth extraction History of tubal ligation S/P epidural steroid injection S/P laparoscopic assisted vaginal hysterectomy (LAVH) S/P tympanoplasty right ([address]ata) Family History Father Myocardial infarction Prostate cancer Diabetes Hypertension Mother , 2008 Myocardial infarction Dementia Diabetes Hypertension Other No significant family history Denies family history of Ovarian cancer Crohn's disease Breast cancer Colorectal cancer Ulcerative colitis Social History Smoking Status: Never smoker Tobacco Type: Cigarettes Second Hand Exposure: No; Hx Alcohol Use: No Hx Substance Use: Yes Last Used Substance: Days (ago) Substance Use Type Other:: medical marijuana Preferred Language: Kinyarwanda Communication Ability: Effective Visual Impairment: Partially Limited Hearing Ability: Normal Case Repairer Required: No Beliefs That Will Affect Care: None marital status: Current Living Situation: Spouse and Family Current Living Situation Comment: and ADAM current occupational status: disabled 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 Other Information That Helps Us Care for You: No Feels Safe at Home: Yes Safety Concerns: Feels Safe At This Time Childhood Exposure to Second-Hand Smoke: Yes Diet Comment: regular Dental Care, Regularly: Yes Physical Activity Frequency: Does not Exercise Seatbelt Use: always Sunscreen Use: Yes Assistive Devices: None Review of Systems Constitutional: no fever and no chills Eyes: no blind spots and no diplopia Ear, Nose, Mouth, Throat: no ear pain, no tinnitus and no hearing loss Respiratory: no cough and no dyspnea Cardiovascular: no chest pain and no palpitations Gastrointestinal: no nausea and no vomiting Genitourinary: no dysuria Musculoskeletal: + neck pain; no myalgia Integumentary: + rash and + lesions Neurologic: as per Subjective / HPI, + paresthesia and + headache(s); no gait abnormality, no localized weakness, no lack of coordination, no seizure-like activity, no syncope, no confusion and no memory loss Hematologic / Lymphatic: no easy bleeding and no easy bruising Exam (Neuro) Constitutional: well developed and well nourished; no acute distress Eyes: normal visual chatman by confrontation, PERRL, normal accommodation and EOM intact bilaterally; no fundoscopic abnormality, no nystagmus and no papilledema Cardiovascular: Vessels: normal carotid upstroke; no carotid bruit Neurologic: Oriented to:: Person, Place and Time Memory: Short Term Intact and Remote Intact Attention: Span Intact and Concentration Intact Language: Naming Objects and Repeating Phrases Speech Fluency: negative Dysarthria Speech Aphasia: negative Aphasia Fund of Knowledge: Current Events, Past History and Vocabulary Cranial Nerves: Normal II (Visual chatman full to confrontation, visual acuity normal), III, IV, (Pupils equal round reactive to light and accommodation, eye movements normal), V (Facial sensation intact), VII (There is no facial droop or weakness), VIII (Hearing intact), IX, X (Palate elevates to midline), XI (Shoulder shrug intact) and XII (Tongue protrudes to midline) Motor Strength: Normal Lower Extremities and Normal Upper Extremities; negative Pronator Drift Motor Tone: Normal Lower Extremities and Normal Upper Extremities Muscle Bulk/Involuntary Movements: No Involuntary Movements; negative Muscle Atrophy Sensation: Light Touch Intact, Pain/Temperature Intact, Vibration Intact and Proprioception Intact Coordination: Normal; negative Limited Balance, Dysdiadochokinesia, Finger-Nose Abnormal or Heel-Beal Abnormal Deep Tendon Reflexes: Rt Triceps: 2+, Lt Triceps: 2+, Rt Biceps: 2+, Lt Biceps: 2+, Rt Brachioradialis: 2+, Lt Brachioradialis: 2+, Rt Patellar: 2+, Lt Patellar: 2+, Rt Ankle: 2+ and Lt Ankle: 2+ Special Tests: negative Babinski Present Gait: Normal Station and Gait Results & Data ([facility]) Vital Signs (Past 12 Hours) Vital Signs Temp Pulse Resp BP Pulse Ox O2 Del Method 09/16/22 07:19 36.4 C L 76 20 105/70 93 Room Air 09/16/22 03:33 36.5 C 69 18 119/62 93 Room Air 09/16/22 00:06 36.5 C 69 18 141/86 H 95 Room Air Laboratory Results WBC 6.38, hemoglobin 14.6, hematocrit 42.2, MCV 85.3, platelet count 250, sodium 137, potassium 3.7, BUN 16, creatinine 0.52, glucose 182, hemoglobin A1c 11.5, AST 17, ALT 24, triglycerides 334, cholesterol 225, LDL 120, VLDL 67, HDL 38, TSH 1.[address] of the head completed yesterday was negative for hemorrhage or acute process. No change compared to prior study done September 09, 2022. Brain MRI completed yesterday unremarkable as well. I did independently review these images. Per my review, no abnormal areas of restricted diffusion. No pathologic blooming artifact on susceptibility weighted sequences. There is a mild degree of nonspecific periventricular and subcortical white matter hyperintensity on T2/FLAIR sequences consistent with chronic cerebrovascular ischemic disease. There is no hydrocephalus. No Chiari malformation. Gadolinium not administered. An electrocardiogram reveals a normal sinus rhythm, 82 bpm. An electrocardiogram completed on September 09 also revealed normal sinus rhythm. Patient had a dobutamine cardiac stress echo completed in January 2022. This study was negative for ischemic changes but nondiagnostic as target heart rate was not attained. Study was discontinued due to chest pain. Patient did have a CT of the cervical spine completed June 11, 2022, further evaluation after a fall. There is evidence of mild multilevel endplate os teophytosis. Study otherwise unremarkable. A thoracic spine CT at that time revealed a chronic T8 compression deformity. A lumbar spine CT revealed mild multilevel spondylitic spurring with moderate facet arthrosis, chronic L5 pars defects, and epidural lipomatosis of the lower lumbar spine with moderate L4-5 and L5-S1 central canal stenosis. Hepatic steatosis also seen. PG Care Time/CCT Total # of Minutes Spent Total Time Spent with Patient: Total time spent is greater than 50% in coordination of care (as documented) at patient's floor/unit and/or counseling patient: Coding Level of Care Code 45062 INT INP/OBS CARE 3/75MIN Diagnoses Facial paresthesia R20.2 Occipital headache R51.9 H/O concussion Z87.820 Migraines G43.909 Diabetic peripheral neuropathy associated with type 2 diabetes mellitus E11.42
[2022-09-16] MEDS: SUCRALFATE 1 GM TAB PO SCH ×2 (11:52→16:55)
[2022-09-16] MEDS ORDERED: GABAPENTIN 600 MG TAB PO SCH (12:00)
--- NOTE | 2022-09-16 14:10 | Pharmacy Report ---
Pharmacy Glycemic Short Note 2 - Date of Service September 16, 2022 - Glycemic Short BSG Results (Last 24 hours): 09/15/22 09/15/22 09/15/22 16:35 20:31 23:57 Glucose POC Glucose 328 H* 205 H 174 H 09/16/22 09/16/22 09/16/22 04:04 07:09 07:40 Glucose 182 H POC Glucose 172 H 196 H 09/16/22 11:21 Glucose POC Glucose 231 H OUTPATIENT ANTIDIABETIC REGIMEN: * Tresiba 70 units TID * Novolin R 55 units BIDM (per diabetes notes) * HbA1C 11.5% ASSESSMENT: 09/16: * BSGs improving, 196 mg/dL this AM- will increase lantus by 20% today * Lunch BSG elevated but will continue current novlog parameters for now to see trend today, tighten tomorrow if still elevated. * A1c 11.5% indicates BSGs above goal outpatient on home regimen (unknown compliance) 09/15 * Ms Ramos is a 47 y/o F with a PMH of T2DM who presents with stroke-like symptoms. * Patient's BSGs in the ER were 589-543 (receiving 6 units IV insulin)- 439 mg/dL. * Extensively reviewed previous diabetes notes and [facility] pharmacy glycemic team notes. * Will initiate plan based upon previous data. Per discussion with provider, he would desire to forego insulin infusion at this time. * Lantus 50 units SQ x 1 (full weight-based stress of 3) with extra Lantus tonight if BSG remains greater than 250 mg/dL. * Novolog weight-based stress of 3 with overnight checks to establish 24 hour insulin requirements. * For lunch, patient ate prior to BSG check. DexCom reading 379 mg/dL after patient ate. Instructed nurse to only cover carbohydrates at this time. PLAN FOR INPATIENT GLYCEMIC CONTROL: * Basal insulin * Lantus 30 units BID * Bolus insulin * NovoLog per scale ACHS or Q6hrs while NPO * Goal Range: Low 110 mg/dL - High 140 mg/dL * Correction Factor: 15 mg/dL/unit * Nutritional / Prandial insulin per carb ratio of 1 unit per 5 grams CHO consumed
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
[2022-09-16] MEDS ORDERED: CHOLECALCIFEROL 1,000 UNITS 25 MCG TAB PO SCH (21:00)
[2022-09-16] MEDS ORDERED: ATORVASTATIN 20 MG TAB PO SCH (21:00)
[2022-09-16] MEDS ORDERED: LEVOTHYROXINE SODIUM 75 MCG TABLET PO SCH (21:00)
[2022-09-16] MEDS ORDERED: PANTOprazole 40 MG TAB PO SCH (21:00)
[2022-09-16] MEDS ORDERED: DOXEPIN HCL 25 MG CAPSULE PO SCH (21:00)
== END 2022-09-16 18:13 | disposition home or self-care (01) ==
LOC: 2N 08:00 → ED 08:00 → SUATTDRO 11:07 → 2N 13:06

== ENCOUNTER 2023-12-01 22:19 | Observation (INO) ==
[2023-12-01] MEDS: OPTIRAY 320 125ml IV ONE (22:35)
--- NOTE | 2023-12-01 22:52 | CT Scan Report ---
Exam(s): CT HEAD Without Contrast EXAM: CT Head Without Intravenous Contrast CLINICAL HISTORY: Reason for exam: neuro deficit, acute stroke suspected. TECHNIQUE: Axial computed tomography images of the head/brain without intravenous contrast. CTDI is 43.86 mGy and DLP is 774.27 mGy-cm. Automated exposure control was utilized for the study. A dose lowering technique was utilized adhering to the principles of ALARA. COMPARISON: 10/19/2023. FINDINGS: Brain: No acute stroke. No hemorrhage. No abnormal extra-axial fluid collection. No significant white matter disease. Ventricles: No hydrocephalus. No midline shift. Bones/joints: Unremarkable. No acute fracture. Soft tissues: Unremarkable. Sinuses: Unremarkable as visualized. No acute sinusitis. IMPRESSION: No acute abnormality. Communications: Call Doctor Stroke Electronically signed by: Chase Balderas M.D. 12/01/23 22:51 PM
[2023-12-01 22:53] LABS: Basophils # (auto) 0.02 K/uL (0.00-0.20); Basophils % (auto) 0.3 %; Eosinophils # (auto) 0.13 K/uL (0.00-0.50); Eosinophils % (auto) 1.9 %; Hematocrit (blood only) 37.9 % (37.0-47.0); Hemoglobin 12.3 g/dl (12.0-16.0); Immature Granulocytes # (auto) 0.02 K/uL (0.01-0.20); Immature Granulocytes % (auto) 0.3 %; Lymphocytes # (auto) 1.61 K/uL (1.20-3.40); Lymphocytes % (auto) 23.7 %; Mean Corpuscular Hgb Conc 32.5 g/dL (32.0-36.0); Mean Corpuscular Volume 86.1 fL (80.0-100.0); Mean Platelet Volume 9.3 fL (9.4-12.4); Monocytes # (auto) 0.39 K/uL (0.11-0.59); Monocytes % (auto) 5.7 %; Neutrophils # (auto) 4.62 K/uL (1.40-6.50); Neutrophils % (auto) 68.1 %; Platelet Count 188 K/uL (130-400); RDW Coefficient of Variation 13.5 % (11.5-14.5); RDW Standard Deviation 42.4 fL (36.4-46.3); White Blood Count 6.79 K/ul (4.8-10.8)
[2023-12-01] MEDS: SODIUM CHLORIDE 0.9% 1,000 ML IV SCH (22:57)
--- NOTE | 2023-12-01 22:57 | CT Scan Report ---
Exam(s): CTA HEAD With Contrast IV Amt: 118 cc opti 320 EXAM: CT Angiography Head With Intravenous Contrast CLINICAL HISTORY: Reason for exam: neuro deficit, acute stroke suspected. TECHNIQUE: Axial computed tomographic angiography images of the head with intravenous contrast. CTDI is 13.9 mGy and DLP is 553.15 mGy-cm. Automated exposure control was utilized for the study. A dose lowering technique was utilized adhering to the principles of ALARA. 3D and MIP reconstructed images were created and reviewed. CONTRAST: Patient received 118 cc opti 320 of IV contrast COMPARISON: 06/04/2023. FINDINGS: Right internal carotid artery: No acute abnormality. Intracranial segment is patent with no significant stenosis. No aneurysm. Right anterior cerebral artery: Unremarkable. No occlusion or significant stenosis. No aneurysm. Right middle cerebral artery: Unremarkable. No occlusion or significant stenosis. No aneurysm. Right posterior cerebral artery: Unremarkable. No occlusion or significant stenosis. No aneurysm. Right vertebral artery: Unremarkable as visualized. Left internal carotid artery: No acute abnormality. Intracranial segment is patent with no significant stenosis. No aneurysm. Left anterior cerebral artery: Unremarkable. No occlusion or significant stenosis. No aneurysm. Left middle cerebral artery: Unremarkable. No occlusion or significant stenosis. No aneurysm. Left posterior cerebral artery: Unremarkable. No occlusion or significant stenosis. No aneurysm. Left vertebral artery: Unremarkable as visualized. Basilar artery: Unremarkable. No occlusion or significant stenosis. No aneurysm. IMPRESSION: No large vessel occlusion. Communications: Call Doctor Stroke Electronically signed by: Chase Balderas M.D. 12/01/23 22:56 PM
--- NOTE | 2023-12-01 23:04 | CT Scan Report ---
Exam(s): CTA NECK With Contrast IV Amt: 118 cc opti 320 EXAM: CT Angiography Neck With Intravenous Contrast CLINICAL HISTORY: Reason for exam: neuro deficit, acute stroke suspected. TECHNIQUE: Routine carotid CT angiography protocol was performed with intravenous contrast. NASCET criteria using the distal ICAs for comparison were used for evaluation of stenoses. CTDI is 13.9 mGy and DLP is 553.15 mGy-cm. Automated exposure control was utilized for the study. A dose lowering technique was utilized adhering to the principles of ALARA. 3D and MIP reconstructed images were created and reviewed. CONTRAST: Patient received 118 cc opti 320 of IV contrast COMPARISON: CT cervical spine 10/18/2023. FINDINGS: VASCULATURE: Right common carotid artery: Unremarkable. No occlusion or significant stenosis. No dissection. Right internal carotid artery: Unremarkable. Extracranial segment is patent with no occlusion or significant stenosis. No dissection. Right external carotid artery: Unremarkable. No occlusion. Right vertebral artery: Unremarkable. No occlusion or significant stenosis. No dissection. Left common carotid artery: Unremarkable. No occlusion or significant stenosis. No dissection. Left internal carotid artery: Unremarkable. Extracranial segment is patent with no occlusion or significant stenosis. No dissection. Left external carotid artery: Unremarkable. No occlusion. Left vertebral artery: Unremarkable. No occlusion or significant stenosis. No dissection. NECK: Bones/joints: Unremarkable. No acute fracture. Soft tissues: Unremarkable. Lung apices: Clear. CAROTID STENOSIS REFERENCE USING NASCET CRITERIA: % ICA stenosis = (1 - narrowest ICA diameter/diameter of distal cervical ICA) x 100. Mild - <50% stenosis. Moderate - 50-69% stenosis. Severe - 70-94% stenosis. Near occlusion - 95-99% stenosis. Occluded - 100% stenosis. IMPRESSION: No hemodynamically significant stenosis. Communications: Call Doctor Stroke Electronically signed by: Chase Balderas M.D. 12/01/23 23:03 PM
[2023-12-01 23:08] LABS: Albumin Globulin Ratio 1.4 (0.9-2); Bilirubin,Total 0.3 mg/dl (0.2-1.0); Calcium 7.4 mg/dl (8.6-10.3); Creatinine Clr Calc Pharmacy 132.6 ml/min; Est GFR (African American) 123.9 ml/min; Est GFR (Non-African American) 106.9 ml/min; Globulin 2.2 gm/dl (2.5-4.0); Magnesium 1.6 mg/dl (1.7-2.4); Potassium 3.5 mmol/L (3.5-5.1); Total Protein 5.2 gm/dl (6.0-8.3)
[2023-12-01 23:15] LABS: Troponin I High Sensitivity 3.3 pg/ml (0-14)
[2023-12-01 23:22] LABS: Partial Thromboplastin Ratio 0.9; Partial Thromboplastin Time 25 Seconds (21-31); Prothrombin Time 10.6 Seconds (9.0-12.0)
--- NOTE | 2023-12-02 01:26 | History & Physical Report ---
Date of Service December 02, 2023 Assessment & Plan (1) Stroke-like symptoms: Plan: Pt is a 48 yo female with PMH of migraines, PTSD, DM, HTN, IBS, anxiety, bipolar, and ARIELLE presenting d/t sudden onset left sided facial droop and left arm/leg weakness. Stroke-like symptoms - sudden onset of left sided symptoms ~20:00 11/30 - lab work WNL; VSS; exam WNL; head CT neg, head/neck CTA WNL - will continue neuro checks q2hr; hold PO meds until bedside swallow passed - MRI brain/C spine pending (telestroke had concerns for fluid in C spine) DM - last A1c 11/2023 11.5% - SSI w/ basal coverage while inpatient Hypomagnesemia - 1.6 upon admission; repleted with 2g - continue to monitor Consider resumption of home PO meds upon results of bedside swallow. Dispo: admit to med/surg VTE ppx: deferred upon admission d/t projected short stay Code: full Diet: NPO pending bedside swallow (2) Uncontrolled type 2 diabetes mellitus: (3) Hypomagnesemia: History of Present Illness Chief Complaint: left sided facial numbness, weakness Primary Care Provider: NO PCP Pt is a 48 yo female with PMH of migraines, PTSD, DM, HTN, IBS, anxiety, bipolar, and ARIELLE presenting d/t sudden onset left sided facial droop and left arm/leg weakness. Per chart review, pt awoke this evening ~20:00 with a left facial droop, left facial numbness, and left arm/leg weakness. Upon entering the room, pt is asleep. Pt awoken to gather history. Pt states she has had a similar episode in the past with left sided symptoms when she had a "small stroke." When asked how she is feeling now, she states she does not feel herself. She states her left side now feels numb. She states she is hungry and would like something to eat/drink. In the ER, pt was given IVF. Telestroke had concerns for possible fluid around C spine so recommended MRI C spine if brain MRI negative. Allergies Allergy/AdvReac Type Severity Reaction Status Date / Time adhesive Allergy Intermediate skin Verified 12/01/23 22:44 redness, itchy bee venom protein (honey bee) Allergy Intermediate red Verified 12/01/23 22:44 welts/swelling > bruising citalopram AdvReac Intermediate jaw pain, Verified 12/01/23 22:44 headaches morphine AdvReac Intermediate localized Verified 12/01/23 22:44 reaction, redness/welts due to IV infiltration pollen extracts AdvReac Intermediate itchy Verified 12/01/23 22:44 eyes, scratchy throat, swollen eyes Home Medications Medication Instructions Recorded Confirmed Type Medical Thc 1 dose inhalation DAILY PRN Anxiety 04/05/21 12/01/23 History hydroxyzine HCl 50 mg tablet 50 - 100 mg PO HS PRN Sleep 10/14/21 12/01/23 History loperamide 2 mg capsule (Imodium 2 mg PO Q6H PRN loose stool #30 11/04/21 12/01/23 Rx A-D) caps Saccharomyces boulardii 250 mg 250 mg PO BID #20 caps 07/10/22 12/01/23 Rx capsule (Florastor) levothyroxine 75 mcg tablet 75 mcg PO HS #90 tabs 07/15/22 12/01/23 Rx (Synthroid) epinephrine 0.3 mg/0.3 mL 0.3 mg (0.3 mL) IM DIRECTED PRN 12/02/22 12/01/23 Rx injection, auto-injector (EpiPen) Allergic Reaction #1 ea blood sugar diagnostic (Accu-Chek #300 ea 03/01/23 11/11/23 Rx Guide test strips) acetaminophen 500 mg tablet 1,000 mg PO Q6H PRN Pain 03/17/23 12/01/23 History (Acetaminophen Extra Strength) albuterol sulfate 2.5 mg/3 mL 2.5 mg (3 mL) inhalation Q4H PRN 03/17/23 12/01/23 Rx (0.083 %) solution for nebulization shortness of breath or wheezing #75 mL cholecalciferol (vitamin D3) 50 100 mcg PO HS 03/17/23 12/01/23 History mcg (2,000 unit) capsule (Vitamin D3) cholestyramine (with sugar) 4 gram 4 g PO BID PRN NEEDED for 03/17/23 12/01/23 Rx powder for susp in a packet diarrhea #60 ea diclofenac sodium 1 % topical gel 2 g topical QID PRN Inflammation 03/17/23 12/01/23 Rx #100 grams doxepin 50 mg capsule 50 mg PO HS #30 caps 03/17/23 12/01/23 Rx estradiol 0.01% (0.1 mg/gram) 1 g vaginal 2XWK #42.5 grams 03/17/23 12/01/23 Rx vaginal cream hydroxyzine HCl 10 mg tablet 10 mg PO BID PRN Anxiety 03/17/23 12/01/23 History solifenacin 5 mg tablet (Vesicare) 5 mg PO DAILY #30 tabs 03/17/23 12/01/23 Rx sumatriptan succinate 6 mg/0.5 mL 6 mg (0.5 mL) subcut .COMPLEX PRN 03/17/23 Rx subcutaneous pen injector Migraine Headache #1 mL lidocaine 5 % topical patch 1 patch topical DAILY PRN pain #15 03/25/23 12/01/23 Rx ea fluticasone 250 mcg-salmeterol 50 1 inh inhalation BID #60 ea 03/28/23 12/01/23 Rx mcg/dose blistr powdr for inhalation (Advair Diskus) ipratropium 0.5 mg-albuterol 3 mg 3 ml inhalation Q8H PRN Wheezing 05/12/23 12/01/23 Rx (2.5 mg base)/3 mL nebulization #180 mL soln lorazepam 1 mg tablet 1 mg PO BID PRN Anxiety 05/13/23 12/01/23 History topiramate 100 mg tablet 100 mg PO DAILY 05/13/23 12/01/23 History mirtazapine 45 mg tablet 45 mg PO QPM #90 tabs 06/08/23 12/01/23 Rx pantoprazole 40 mg tablet,delayed 40 mg PO HS GERD 06/08/23 12/01/23 History release (Protonix) duloxetine 20 mg capsule,delayed 20 mg PO BID #60 caps 06/12/23 12/01/23 Rx release azelastine 137 mcg (0.1 %) nasal 2 spray intranasal DAILY PRN 07/05/23 12/01/23 Rx spray aerosol Congestion #30 mL naproxen 500 mg tablet 500 mg PO DAILY PRN DIRECTED 07/05/23 12/01/23 Rx #30 tabs atorvastatin 40 mg tablet 40 mg PO HS #30 tabs 07/19/23 12/01/23 Rx ondansetron HCl 4 mg tablet 4 mg PO Q8H PRN nausea and 08/10/23 12/01/23 Rx vomiting #90 tabs albuterol sulfate 90 mcg/actuation 1 inh inhalation QID PRN shortness 09/12/23 12/01/23 Rx aerosol inhaler of breath or wheezing #8.5 grams albuterol sulfate 1.25 mg/3 mL 1.25 mg (3 mL) inhalation Q4H PRN 09/23/23 12/01/23 Rx solution for nebulization bronchospasm #75 mL fluconazole 150 mg tablet 150 mg PO Q3D 2 doses #2 tabs 10/05/23 12/01/23 Rx promethazine-DM 6.25 mg-15 mg/5 mL 5 ml PO Q6H PRN cough #200 mL 10/09/23 12/01/23 Rx oral syrup dicyclomine 20 mg tablet 20 mg PO QID PRN abdominal pain 10/26/23 12/01/23 Rx #30 tabs pregabalin 100 mg capsule 100 mg PO Q12H #60 caps 11/27/23 12/01/23 Rx cyclobenzaprine 10 mg tablet 10 mg PO HS PRN MUSCLE SPASMS 12/01/23 12/01/23 History insulin aspart U-100 100 unit/mL 0 unit continuous subcutaneous 12/01/23 12/01/23 History subcutaneous solution (Novolog infusion CONTINOUS U-100 Insulin aspart) Past Med/Surg History Medical History H/O concussion Incontinence Urinary urgency Hematuria Yeast dermatitis Degenerative joint disease of left hip Sensorineural hearing loss of both ears Migraines Kidney stones Post traumatic stress disorder Irritable bowel syndrome with diarrhea Chronic sinusitis Diverticulosis (02/13/12) Fatty infiltration of liver Insomnia Internal hemorrhoids Obstructive sleep apnea Non-compliant with CPAP, could not tolerate Sciatica Surgical History S/P tympanoplasty right ([address]ata) S/P epidural steroid injection History of colonoscopy History of esophagogastroduodenoscopy (EGD) EGD (02/06/20): MAC at [facility] S/P laparoscopic assisted vaginal hysterectomy (LAVH) History of anesthesia reaction "Slow to wake" History of myringotomy bilateral tubes (multiple) Right myringotomy tube (04/09/18): LMA#4 at [facility] [place] (weight at time was 118kg) History of knee surgery Right History of arthroscopy of right shoulder History of tubal ligation History of bladder surgery suburethral sling with hysterectomy (2009) History of tooth extraction History of tonsillectomy History of cholecystectomy Family History Father Myocardial infarction Prostate cancer Diabetes Hypertension Biliary liver cirrhosis Mother , 2008 Myocardial infarction Dementia Diabetes Hypertension Other No significant family history Denies family history of Ovarian cancer Crohn's disease Breast cancer Lung cancer Colorectal cancer Ulcerative colitis Social History Smoking Status: Current every day smoker Tobacco Type: E-cigarettes / Vaping Second Hand Exposure: Yes; Do You Dip or Chew Tobacco: No; Tobacco Cessation Education Requested by Patient: No Hx Alcohol Use: Yes Alcohol type: hard liquor Hx Substance Use: Yes Last Used Substance: Hours (ago) Last Used Substance Other:: "HAVE NOT USED IN A WHILE" Substance Use Type Other:: Medical marijuana. 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 Respiratory: CTA bilaterally. Non labored breathing. No rhonchi, wheezing, or crackles. Cardiovascular: RRR. No murmurs noted. No LE edema. Skin: No rashes or skin lesions noted. Neurologic: Sensation grossly intact. No FND appreciated. 5/5 strength in bilateral UE and LE plantar/dorsiflexion. No facial droop present. Tongue midline upon protrusion. Symmetric movement of bilateral eyebrows. Psychiatric: Speech slightly slow and garbled (unclear if this is dysarthric or from just being awoken) but of normal content. Mood and affect congruent. Results & Data Results & Data Vital Signs (Past 12 Hours) Vital Signs Temp Pulse Pulse Resp BP BP Pulse Ox 12/02/23 00:00 61 18 134/77 97 12/01/23 23:00 58 L 18 138/82 98 12/01/23 22:53 66 20 155/102 H 12/01/23 22:44 73 12/01/23 22:38 36.5 C 67 12 164/96 H 95 O2 Del Method 12/02/23 00:00 Room Air 12/01/23 23:00 12/01/23 22:53 12/01/23 22:44 12/01/23 22:38 Room Air Supervising Physician Co-Signing Physician Notes Attending addendum: I have physically seen this patient, have supervised the medical residents activities, and agree with the H&P unless as otherwise noted. Assessment and Plan: Strokelike symptoms- The patient will be admitted to telemetry for serial cardiac enzymes, serial EKG's, cardiac rhythm monitoring and a 2-D echocardiogram with Dopplers. Stroke without tPA order set CT head negative CTA head and neck negative Order MRI of brain and C-spine per recommendations from telestroke Hypomagnesemia- Magnesium 1.6 upon admission Replace as noted and recheck laboratories in a.m. Diabetes mellitus, uncontrolled- Placed on Accu-Cheks with NovoLog SSI Hemoglobin A1c 11/25 was 11.5 Resident Activity Tracking Resident Involvement: Resident Care Provided Care Provided: Adult Hospital Medicine
--- NOTE | 2023-12-02 01:33 | Emergency Department Note ---
Impression & Plan Stroke-like symptoms ED Provider Note NAME: COURTNEY HELLER AGE: 48 SEX: Female INFORMANT: Patient, EMS and family ED PROVIDER(S): George Villatoro MD CHIEF COMPLAINT: Strokelike symptoms PLAN: Disposition: Admitted Outpatient prescription management: none Referral: None MEDICAL DECISION MAKING: Patient presented with strokelike symptoms. She was made a stroke alert after prehospital medical command contacted me and notified of the symptoms. Patient was last well known at around 7:00 in the morning. She woke up at [address] imaging was performed. [facility] Given the last well-known, symptomatology, and his evaluation of the patient he did not recommend TNK. I did convey the stat rad results for the patient's CT and CT angiography after discussion with the radiologist. He thought that the patient may have a slight fluid collection on 1 image slice and noted that she had a fall last month. He felt that this may be a subacute subdural or possibly artifact. Recommended an MRI of the brain and C-spine as well as stroke evaluation and admission. If MRI brain does not show any signs of subacute bleeding then he recommended aspirin. MR imaging ordered. Consultation was made with Dr. Lucas Sutherland of the [facility] service. Patient was evaluated in the ER for further management. 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 Vital Signs: reviewed and remarkable for no significant abnormalities Additional History obtained from: EMS regarding the patient's prehospital course. Stroke alert initiated Chronic Medical/Social Conditions affecting care: Diabetes Prior/ Outside/ External records reviewed: none Differential Diagnosis: CVA, TIA, Infection, dehydration, metabolic abnormality, hypo/hyperglycemia, electrolyte disturbance, anemia, hypoxia, cardiac sources, intracerebral event, toxicologic, neurologic, as well as other pathologies. Diagnostics, independently interpreted by me: EC Lead ECG performed and revealed Normal sinus rhythm at 61, normal [place], QRS normal. No elevation or depression. No PACs or PVCs Cardiac Monitoring: Cardiac monitoring ordered by me: The patient was placed on continuous cardiac monitoring and observed. It revealed a normal sinus rhythm at 64 beats per minute without ectopy or evidence of dysrhythmia. Medical decision rules: none Imaging studies: Chest x-ray. Findings: A chest x-ray was performed and revealed no pneumothorax, effusion, infiltrate, pulmonary edema, free air under the diaphragm, or wide mediastinum. Impression: No acute disease. HPI: 48 year old Female arrives for evaluation of strokelike symptoms. This started at 7 hrs. and is persisting. Patient had slurred speech and left arm and leg weakness. She also noted some decree sensation and weakness in the left side of the face. The patient also notes the following associated symptoms, substernal chest pain that started after the symptoms were noticed at 7. The patient has taken no medication for relieving factors. Current pain is rated as 6/10. Patient denied any current trauma. There was a fall without significant head impact a month ago. Patient does not take aspirin. Denies taking any extra of her medications or any other substances. Does note history of TIA pt denies LOC, headache, fevers, chills, diaphoresis, visual changes, neck pain,breathing difficulties, nausea, vomiting, abdominal pain, back pain, melena, hematochezia, urinary symptoms, lymphadenopathy, rash, or other complaints. PAST MEDICAL HISTORY: See Below, diabetes PAST SURGICAL HISTORY: See Below, SOCIAL HISTORY: See Below, non-smoker HOME MEDICATIONS: See Below ALLERGIES: See Below VITALS: See Below PHYSICAL EXAMINATION: GENERAL: Awake, tired-appearing, in no distress HENT: Normocephalic, atraumatic. Oropharynx unremarkable. EYES: Normal conjunctiva. Sclera non-icteric. PERRLA. EOMI. NECK: Inspection normal. Non-tender. Supple. No nuchal rigidity. FROM. No masses. RESPIRATORY: Clear to auscultation. No wheezes. No rales. Normal respiratory effort. CARDIAC: Normal rate. Normal rhythm. No murmurs. No rubs. Extremities warm and well perfused. Pulses equal. No JVD. GI: Soft, non-distended. No tenderness to palpation. No rebound or guarding. No masses. RECTAL: Deferred. MUSCULOSKELETAL: Atraumatic. Chest examination reveals no tenderness. The back is symmetrical on inspection without obvious abnormality. There is no CVA tenderness to palpation. No joint edema. LOWER EXTREMITIES: Calves are equal size bilaterally and non-tender. No edema. No discoloration. NEURO: Normal sensorium. Subjective decrease in sensation on the left side of the face and the left arm/leg. There is mild weakness of the left eye with opening. Smile is symmetric. Mild drift of the left arm and left leg. Mildly slurred speech SKIN: No rash or jaundice noted. PROCEDURES: none CRITICAL CARE: none OBSERVATION NOTE: none Past Med/Surg History Medical History H/O concussion Incontinence Urinary urgency Hematuria Yeast dermatitis Degenerative joint disease of left hip Sensorineural hearing loss of both ears Migraines Kidney stones Post traumatic stress disorder Irritable bowel syndrome with diarrhea Chronic sinusitis Diverticulosis (02/13/12) Fatty infiltration of liver Insomnia Internal hemorrhoids Obstructive sleep apnea Non-compliant with CPAP, could not tolerate Sciatica Surgical History S/P tympanoplasty right ([address] Plata) S/P epidural steroid injection History of colonoscopy History of esophagogastroduodenoscopy (EGD) EGD (02/06/20): MAC at [facility] S/P laparoscopic assisted vaginal hysterectomy (LAVH) History of anesthesia reaction "Slow to wake" History of myringotomy bilateral tubes (multiple) Right myringotomy tube (04/09/18): LMA#4 at [facility] (weight at time was 118kg) History of knee surgery Right History of arthroscopy of right shoulder History of tubal ligation History of bladder surgery suburethral sling with hysterectomy (2009) History of tooth extraction History of tonsillectomy History of cholecystectomy Family History Father Myocardial infarction Prostate cancer Diabetes Hypertension Biliary liver cirrhosis Mother , 2008 Myocardial infarction Dementia Diabetes Hypertension Other No significant family history Denies family history of Ovarian cancer Crohn's disease Breast cancer Lung cancer Colorectal cancer Ulcerative colitis Social History Smoking Status: Never smoker Tobacco Type: Cigarettes Second Hand Exposure: No; Do You Dip or Chew Tobacco: No; Hx Alcohol Use: No Hx Substance Use: No Preferred Language: Romanian Communication Ability: Effective Visual Impairment: Partially Limited Hearing Ability: Normal Sales And Marketing Administrator Required: No Beliefs That Will Affect Care: None marital status: Current Living Situation: Spouse and Family Current Living Situation Comment: and ADAM current occupational status: disabled 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 How many Children do You have: 4 Feels Safe at Home: Yes Childhood Exposure to Second-Hand Smoke: Yes Diet: regular Diet Comment: regular caffeine: Yes Dental Care, Regularly: Yes Physical Activity Frequency: Does not Exercise Seatbelt Use: always Sunscreen Use: Yes Assistive Devices: Cane, Glasses and Walker Allergies Allergies Allergy/AdvReac Type Severity Reaction Status Date / Time adhesive Allergy Intermediate skin Verified 12/01/23 22:44 redness, itchy bee venom protein (honey bee) Allergy Intermediate red Verified 12/01/23 22:44 welts/swelling > bruising citalopram AdvReac Intermediate jaw pain, Verified 12/01/23 22:44 headaches morphine AdvReac Intermediate localized Verified 12/01/23 22:44 reaction, redness/welts due to IV infiltration pollen extracts AdvReac Intermediate itchy Verified 12/01/23 22:44 eyes, scratchy throat, swollen eyes Home Meds Home Medications Medication Instructions Recorded Confirmed Medical Thc 1 dose inhalation DAILY PRN Anxiety 04/05/21 12/01/23 hydroxyzine HCl 50 mg tablet 50 - 100 mg PO HS PRN Sleep 10/14/21 12/01/23 acetaminophen 500 mg tablet 1,000 mg PO Q6H PRN Pain 03/17/23 12/01/23 (Acetaminophen Extra Strength) cholecalciferol (vitamin D3) 50 100 mcg PO HS 03/17/23 12/01/23 mcg (2,000 unit) capsule (Vitamin D3) hydroxyzine HCl 10 mg tablet 10 mg PO BID PRN Anxiety 03/17/23 12/01/23 lorazepam 1 mg tablet 1 mg PO BID PRN Anxiety 05/13/23 12/01/23 topiramate 100 mg tablet 100 mg PO DAILY 05/13/23 12/01/23 pantoprazole 40 mg tablet,delayed 40 mg PO HS GERD 06/08/23 12/01/23 release (Protonix) cyclobenzaprine 10 mg tablet 10 mg PO HS PRN MUSCLE SPASMS 12/01/23 12/01/23 insulin aspart U-100 100 unit/mL 0 unit continuous subcutaneous 12/01/23 12/01/23 subcutaneous solution (Novolog infusion CONTINOUS U-100 Insulin aspart) Previous Rx's Medication Instructions Recorded loperamide 2 mg capsule (Imodium 2 mg PO Q6H PRN loose stool #30 11/04/21 A-D) caps Saccharomyces boulardii 250 mg 250 mg PO BID #20 caps 07/10/22 capsule (Florastor) levothyroxine 75 mcg tablet 75 mcg PO HS #90 tabs 07/15/22 (Synthroid) epinephrine 0.3 mg/0.3 mL 0.3 mg (0.3 mL) IM DIRECTED PRN 12/02/22 injection, auto-injector (EpiPen) Allergic Reaction #1 ea blood sugar diagnostic (Accu-Chek #300 ea 03/01/23 Guide test strips) albuterol sulfate 2.5 mg/3 mL 2.5 mg (3 mL) inhalation Q4H PRN 03/17/23 (0.083 %) solution for nebulization shortness of breath or wheezing #75 mL cholestyramine (with sugar) 4 gram 4 g PO BID PRN NEEDED for 03/17/23 powder for susp in a packet diarrhea #60 ea diclofenac sodium 1 % topical gel 2 g topical QID PRN Inflammation 03/17/23 #100 grams doxepin 50 mg capsule 50 mg PO HS #30 caps 03/17/23 estradiol 0.01% (0.1 mg/gram) 1 g vaginal 2XWK #42.5 grams 03/17/23 vaginal cream solifenacin 5 mg tablet (Vesicare) 5 mg PO DAILY #30 tabs 03/17/23 sumatriptan succinate 6 mg/0.5 mL 6 mg (0.5 mL) subcut .COMPLEX PRN 03/17/23 subcutaneous pen injector Migraine Headache #1 mL lidocaine 5 % topical patch 1 patch topical DAILY PRN pain #15 03/25/23 ea fluticasone 250 mcg-salmeterol 50 1 inh inhalation BID #60 ea 03/28/23 mcg/dose blistr powdr for inhalation (Advair Diskus) ipratropium 0.5 mg-albuterol 3 mg 3 ml inhalation Q8H PRN Wheezing 05/12/23 (2.5 mg base)/3 mL nebulization #180 mL soln mirtazapine 45 mg tablet 45 mg PO QPM #90 tabs 06/08/23 duloxetine 20 mg capsule,delayed 20 mg PO BID #60 caps 06/12/23 release azelastine 137 mcg (0.1 %) nasal 2 spray intranasal DAILY PRN 07/05/23 spray aerosol Congestion #30 mL naproxen 500 mg tablet 500 mg PO DAILY PRN DIRECTED 07/05/23 #30 tabs atorvastatin 40 mg tablet 40 mg PO HS #30 tabs 07/19/23 ondansetron HCl 4 mg tablet 4 mg PO Q8H PRN nausea and 08/10/23 vomiting #90 tabs albuterol sulfate 90 mcg/actuation 1 inh inhalation QID PRN shortness 09/12/23 aerosol inhaler of breath or wheezing #8.5 grams albuterol sulfate 1.25 mg/3 mL 1.25 mg (3 mL) inhalation Q4H PRN 09/23/23 solution for nebulization bronchospasm #75 mL fluconazole 150 mg tablet 150 mg PO Q3D 2 doses #2 tabs 10/05/23 promethazine-DM 6.25 mg-15 mg/5 mL 5 ml PO Q6H PRN cough #200 mL 10/09/23 oral syrup dicyclomine 20 mg tablet 20 mg PO QID PRN abdominal pain 10/26/23 #30 tabs pregabalin 100 mg capsule 100 mg PO Q12H #60 caps 11/27/23 Results & Data (ED) Vital Signs Vital Signs - 24 hr 12/01/23 22:38 12/01/23 22:44 12/01/23 22:53 Temperature 36.5 C Temperature Source Oral Pulse Rate 67 73 Pulse Rate [Apical] 66 Pulse Rhythm [Apical] Pulse Strength [Apical] Respiratory Rate 12 20 Respiratory Effort / Characteristics Respiratory Depth Respiratory Pattern Blood Pressure 164/96 H Blood Pressure [Left Arm] 155/102 H Blood Pressure Mean 118 Blood Pressure Mean [Left Arm] 119 Blood Pressure Position [Left Arm] Pulse Oximetry 95 Oxygen Delivery Method Room Air Sepsis Recent Fever Within 48 Hours No Sepsis New/Unexplained Change in Mental Status No Sepsis Action Taken by Nursing No Action Required 12/01/23 23:00 12/02/23 00:00 Temperature Temperature Source Pulse Rate 58 L Pulse Rate [Apical] 61 Pulse Rhythm [Apical] Regular Pulse Strength [Apical] Normal Respiratory Rate 18 18 Respiratory Effort / Characteristics Non-Labored Spontaneous Respiratory Depth Normal Respiratory Pattern Regular Blood Pressure 138/82 Blood Pressure [Left Arm] 134/77 Blood Pressure Mean 100 Blood Pressure Mean [Left Arm] 96 Blood Pressure Position [Left Arm] Lying Pulse Oximetry 98 97 Oxygen Delivery Method Room Air Sepsis Recent Fever Within 48 Hours Sepsis New/Unexplained Change in Mental Status Sepsis Action Taken by Nursing Laboratory Data 12/01/23 22:36 12/01/23 22:36 Lab Results 12/01/23 Range/Units 22:36 WBC 6.79 (4.8-10.8) K/ul RBC 4.40 (4.20-5.40) M/uL Hgb 12.3 (12.0-16.0) g/dl Hct 37.9 (37.0-47.0) % MCV 86.1 (80.0-100.0) fL MCH 28.0 (25.0-34.0) pg MCHC 32.5 (32.0-36.0) g/dL RDW Std Deviation 42.4 (36.4-46.3) fL RDW Coeff of [place] 13.5 (11.5-14.5) % Plt Count 188 (130-400) K/uL MPV 9.3 L (9.4-12.4) fL Immature Gran % (Auto) 0.3 % Neut % (Auto) 68.1 % Lymph % (Auto) 23.7 % Gove % (Auto) 5.7 % Eos % (Auto) 1.9 % Baso % (Auto) 0.3 % Neut # (Auto) 4.62 (1.40-6.50) K/uL Lymph # (Auto) 1.61 (1.20-3.40) K/uL Gove # (Auto) 0.39 (0.11-0.59) K/uL Eos # (Auto) 0.13 (0.00-0.50) K/uL Baso # (Auto) 0.02 (0.00-0.20) K/uL Immature Gran # (Auto) 0.02 (0.01-0.20) K/uL PT 10.6 (9.0-12.0) Seconds INR 1.0 (0.9-1.1) APTT 25 (21-31) Seconds PTT Ratio 0.9 Sodium 138 (136-145) mmol/L Potassium 3.5 (3.5-5.1) mmol/L Chloride 108 H (98-107) mmol/L Carbon Dioxide 28 (21-32) mmol/L Anion Gap 2 L (3-11) BUN 13 (6-23) mg/dl Creatinine 0.59 L (0.6-1.2) mg/dl Est Cr Clr Drug Dosing 132.6 ml/min Est GFR ( Amer) 123.9 ml/min Est GFR (Non-Af Amer) 106.9 ml/min BUN/Creatinine Ratio 22.0 H (10-20) Glucose 138 H (70-99(Fasting)) mg/dl Calcium 7.4 L (8.6-10.3) mg/dl Magnesium 1.6 L (1.7-2.4) mg/dl Total Bilirubin 0.3 (0.2-1.0) mg/dl AST 11 L (13-39) U/L ALT 11 (7-52) U/L Alkaline Phosphatase 81 (34-104) U/L Troponin I High Sens 3.3 (0-14) pg/ml Total Protein 5.2 L (6.0-8.3) gm/dl Albumin 3.0 L (3.4-5.0) gm/dl Globulin 2.2 L (2.5-4.0) gm/dl Albumin/Globulin Ratio 1.4 (0.9-2) Blood Type O Positive Antibody Screen NEGATIVE Administered Medications Sodium Chloride (Nss) 1,000 mls @ 50 mls/hr IV .Q20H BRANDON Stop: 12/31/23 22:29 Last Admin: 12/01/23 22:57 Dose: 50 mls/hr Documented By: MAHIN Discontinued Medications Ioversol (Optiray 320 125ml) 118 ml IV ONCE ONE Stop: 12/01/23 22:36 Last Admin: 12/01/23 22:35 Dose: 118 ml Documented By: [facility] Data Radiologist's Impression: Head CT 12/01/23 22:23 CR Exam(s): CT HEAD Without Contrast EXAM: CT Head Without Intravenous Contrast CLINICAL HISTORY: Reason for exam: neuro deficit, acute stroke suspected. TECHNIQUE: Axial computed tomography images of the head/brain without intravenous contrast. CTDI is 43.86 mGy and DLP is 774.27 mGy-cm. Automated exposure control was utilized for the study. A dose lowering technique was utilized adhering to the principles of ALARA. COMPARISON: 10/19/2023. FINDINGS: Brain: No acute stroke. No hemorrhage. No abnormal extra-axial fluid collection. No significant white matter disease. Ventricles: No hydrocephalus. No midline shift. Bones/joints: Unremarkable. No acute fracture. Soft tissues: Unremarkable. Sinuses: Unremarkable as visualized. No acute sinusitis. IMPRESSION: No acute abnormality. Communications: Call Doctor Stroke Electronically signed by: Chase Balderas M.D. 12/01/23 22:51 PM Head CTA 12/01/23 22:23 CR Exam(s): CTA HEAD With Contrast IV Amt: 118 cc opti 320 EXAM: CT Angiography Head With Intravenous Contrast CLINICAL HISTORY: Reason for exam: neuro deficit, acute stroke suspected. TECHNIQUE: Axial computed tomographic angiography images of the head with intravenous contrast. CTDI is 13.9 mGy and DLP is 553.15 mGy-cm. Automated exposure control was utilized for the study. A dose lowering technique was utilized adhering to the principles of ALARA. 3D and MIP reconstructed images were created and reviewed. CONTRAST: Patient received 118 cc opti 320 of IV contrast COMPARISON: 06/04/2023. FINDINGS: Right internal carotid artery: No acute abnormality. Intracranial segment is patent with no significant stenosis. No aneurysm. Right anterior cerebral artery: Unremarkable. No occlusion or significant stenosis. No aneurysm. Right middle cerebral artery: Unremarkable. No occlusion or significant stenosis. No aneurysm. Right posterior cerebral artery: Unremarkable. No occlusion or significant stenosis. No aneurysm. Right vertebral artery: Unremarkable as visualized. Left internal carotid artery: No acute abnormality. Intracranial segment is patent with no significant stenosis. No aneurysm. Left anterior cerebral artery: Unremarkable. No occlusion or significant stenosis. No aneurysm. Left middle cerebral artery: Unremarkable. No occlusion or significant stenosis. No aneurysm. Left posterior cerebral artery: Unremarkable. No occlusion or significant stenosis. No aneurysm. Left vertebral artery: Unremarkable as visualized. Basilar artery: Unremarkable. No occlusion or significant stenosis. No aneurysm. IMPRESSION: No large vessel occlusion. Communications: Call Doctor Stroke Electronically signed by: Chase Balderas M.D. 12/01/23 22:56 PM Neck CTA 12/01/23 22:23 CR Exam(s): CTA NECK With Contrast IV Amt: 118 cc opti 320 EXAM: CT Angiography Neck With Intravenous Contrast CLINICAL HISTORY: Reason for exam: neuro deficit, acute stroke suspected. TECHNIQUE: Routine carotid CT angiography protocol was performed with intravenous contrast. NASCET criteria using the distal ICAs for comparison were used for evaluation of stenoses. CTDI is 13.9 mGy and DLP is 553.15 mGy-cm. Automated exposure control was utilized for the study. A dose lowering technique was utilized adhering to the principles of ALARA. 3D and MIP reconstructed images were created and reviewed. CONTRAST: Patient received 118 cc opti 320 of IV contrast COMPARISON: CT cervical spine 10/18/2023. FINDINGS: VASCULATURE: Right common carotid artery: Unremarkable. No occlusion or significant stenosis. No dissection. Right internal carotid artery: Unremarkable. Extracranial segment is patent with no occlusion or significant stenosis. No dissection. Right external carotid artery: Unremarkable. No occlusion. Right vertebral artery: Unremarkable. No occlusion or significant stenosis. No dissection. Left common carotid artery: Unremarkable. No occlusion or significant stenosis. No dissection. Left internal carotid artery: Unremarkable. Extracranial segment is patent with no occlusion or significant stenosis. No dissection. Left external carotid artery: Unremarkable. No occlusion. Left vertebral artery: Unremarkable. No occlusion or significant stenosis. No dissection. NECK: Bones/joints: Unremarkable. No acute fracture. Soft tissues: Unremarkable. Lung apices: Clear. CAROTID STENOSIS REFERENCE USING NASCET CRITERIA: % ICA stenosis = (1 - narrowest ICA diameter/diameter of distal cervical ICA) x 100. Mild - <50% stenosis. Moderate - 50-69% stenosis. Severe - 70-94% stenosis. Near occlusion - 95-99% stenosis. Occluded - 100% stenosis. IMPRESSION: No hemodynamically significant stenosis. Communications: Call Doctor Stroke Electronically signed by: Chase Balderas M.D. 12/01/23 23:03 PM Discharge Plan Visit Data Chief Complaint: Stroke Alert ED Provider: George Villatoro Discharge Problem: Stroke-like symptoms Forms Stand Alone Forms: [employer] Prescriptions Prescriptions: No Action levothyroxine [Synthroid] 75 mcg tablet 75 mcg PO HS Qty: 90 3RF (DME) Accu-Chek Guide test strips Strip See Rx Instructions .Route Qty: 300 3RF Rx Instructions: test TID fluticasone propion-salmeterol [Advair Diskus] 250-50 mcg/dose blister with device 1 inh inhalation BID Qty: 60 2RF ipratropium-albuterol 0.5 mg-3 mg(2.5 mg base)/3 mL solution for nebulization 3 ml INH Q8H PRN (Reason: Wheezing) Qty: 180 3RF duloxetine 20 mg capsule,delayed release(DR/EC) 20 mg PO BID Qty: 60 2RF Hold Instructions: adverse reaction azelastine 137 mcg (0.1 %) aerosol,spray 2 spray intranasal DAILY PRN (Reason: Congestion) Qty: 30 2RF Rx Instructions: INSTILL 2 SPRAYS INTRANASALLY DAILY NEEDED FOR CONGESTION naproxen 500 mg tablet 500 mg PO DAILY PRN (Reason: DIRECTED) Qty: 30 2RF Rx Instructions: TAKE 1 TABLET BY MOUTH DAILY NEEDED FOR BEFORE ACTIVITY TO PREVENT HEADACHES atorvastatin 40 mg tablet 40 mg PO HS Qty: 30 3RF albuterol sulfate 90 mcg/actuation HFA aerosol inhaler 1 inh inhalation QID PRN (Reason: shortness of breath or wheezing) Qty: 8.5 0RF pregabalin 100 mg capsule 100 mg PO Q12H Qty: 60 5RF sumatriptan succinate 6 mg/0.5 mL pen injector 6 mg subcut .COMPLEX PRN (Reason: Migraine Headache) Qty: 1 3RF Rx Instructions: one injection at onset of migraine, may repeat in 2 hours if needed. limit 2- 3 days a week solifenacin [Vesicare] 5 mg tablet 5 mg PO DAILY Qty: 30 2RF estradiol 0.01 % (0.1 mg/gram) cream 1 g vaginal 2XWK Qty: 42.5 3RF Rx Instructions: Insert 1/4 applicatorful vaginally 2 time a week. Taken on Monday and Monday doxepin 50 mg capsule 50 mg PO HS Qty: 30 1RF diclofenac sodium 1 % gel 2 g topical QID PRN (Reason: Inflammation) Qty: 100 0RF cholestyramine (with sugar) 4 gram powder in packet 4 g PO BID PRN (Reason: NEEDED for diarrhea) Qty: 60 0RF Rx Instructions: administer w/meal; avoid other meds within 1hr before or 4-6hr after dose albuterol sulfate 2.5 mg /3 mL (0.083 %) solution for nebulization 2.5 mg inhalation Q4H PRN (Reason: shortness of breath or wheezing) Qty: 75 5RF pantoprazole [Protonix] 40 mg tablet,delayed release (DR/EC) 40 mg PO HS mirtazapine 45 mg tablet 45 mg PO QPM Qty: 90 3RF ondansetron HCl 4 mg tablet 4 mg PO Q8H PRN (Reason: nausea and vomiting) Qty: 90 0RF hydroxyzine HCl 50 mg tablet 50 - 100 mg PO HS PRN (Reason: Sleep) loperamide [Imodium A-D] 2 mg capsule 2 mg PO Q6H PRN (Reason: loose stool) Qty: 30 0RF epinephrine [EpiPen] 0.3 mg/0.3 mL auto-injector 0.3 mg IM DIRECTED PRN (Reason: Allergic Reaction) Qty: 1 3RF Rx Instructions: Hasn't had to use it yet. hydroxyzine HCl 10 mg tablet 10 mg PO BID PRN (Reason: Anxiety) dicyclomine 20 mg tablet 20 mg PO QID PRN (Reason: abdominal pain) Qty: 30 0RF promethazine-DM 6.25-15 mg/5 mL syrup 5 ml PO Q6H PRN (Reason: cough) Qty: 200 0RF fluconazole 150 mg tablet 150 mg PO Q3D Qty: 2 0RF cholecalciferol (vitamin D3) [Vitamin D3] 50 mcg (2,000 unit) capsule 100 mcg PO HS Medical Thc 1 dose inhalation DAILY PRN (Reason: Anxiety) acetaminophen [Acetaminophen Extra Strength] 500 mg tablet 1,000 mg PO Q6H PRN (Reason: Pain) lorazepam 1 mg tablet 1 mg PO BID PRN (Reason: Anxiety) topiramate 100 mg tablet 100 mg PO DAILY Saccharomyces boulardii [Florastor] 250 mg capsule 250 mg PO BID Qty: 20 0RF Rx Instructions: swallow whole lidocaine 5 % adhesive patch,medicated 1 patch TOP DAILY PRN (Reason: pain) Qty: 15 0RF Rx Instructions: leave on most painful area for 12 hrs albuterol sulfate 1.25 mg/3 mL solution for nebulization 1.25 mg inhalation Q4H PRN (Reason: bronchospasm) Qty: 75 0RF cyclobenzaprine 10 mg tablet 10 mg PO HS PRN (Reason: MUSCLE SPASMS) insulin aspart U-100 [Novolog U-100 Insulin aspart] 100 unit/mL solution 0 unit continuous subcutaneous infusion CONTINOUS Rx Instructions: up to 80 U daily via insulin pump subcutaneously daily; Referrals Referrals: PCP,NO [Primary Care Provider] -
[2023-12-02] MEDS ORDERED: ONDANSETRON INJ 2 MG/ML 2 ML VIAL IV PRN (01:45)
[2023-12-02] MEDS: MAGNESIUM SULFATE / D5W 1 GM/100 ML BAG IV SCH (02:05)
[2023-12-02] MEDS ORDERED: GLUCOSE 10 TAB/TUBE PO PRN ×2 (03:18→18:33)
[2023-12-02] MEDS ORDERED: ALBUTEROL HFA 8 GM INHALER INH PRN (03:18)
[2023-12-02] MEDS ORDERED: GLUCAGON FOR INJ 1 MG VIAL SQ PRN ×2 (03:18→18:33)
[2023-12-02] MEDS ORDERED: ACETAMINOPHEN 1000 MG/100 ML IV IV PRN (03:18)
[2023-12-02] MEDS ORDERED: CARBOHYDRATES FOR HYPOGLYCEMIA PO PRN ×2 (03:18→18:33)
[2023-12-02] MEDS ORDERED: GLUCOSE 40% GEL 15 GM TUBE PO PRN ×2 (03:18→18:33)
[2023-12-02] MEDS ORDERED: DEXTROSE 50% 50 ML SYRINGE IV PRN ×2 (03:18→18:33)
[2023-12-02] MEDS ORDERED: INSULIN ASPART 100 UNITS/ML VIAL SC PRN (05:30)
[2023-12-02] MEDS ORDERED: INSULIN ASPART PER UNIT CHARGE SC SCH (06:00)
[2023-12-02] MEDS: INSULIN, Rapid-Acting PUMP SCH ×2 (06:15→13:09)
[2023-12-02] MEDS: LORazepam 0.5 MG in SYRINGE 0.25 ML IV ONE (06:28)
[2023-12-02] MEDS ORDERED: INSULIN, Rapid-Acting PUMP SCH (07:30)
--- NOTE | 2023-12-02 07:34 | XRay Report ---
XR chest 1V portable HISTORY: neuro deficit, acute stroke suspected COMPARISON: Chest 10/19/2023. FINDINGS: There are low lung volumes. The heart remains mildly enlarged. No pleural effusions. No pne umothorax. The lungs are clear. No evidence for pulmonary edema. No acute fractures. IMPRESSION: Stable mild cardiomegaly. ACT 112: Negative or not required by law. Electronically signed by: Neftali Nascimento M.D. 12/02/2023 7:31 AM
--- NOTE | 2023-12-02 07:56 | Hospitalist Progress Note ---
Date of Service December 02, 2023 Assessment & Plan (1) Stroke-like symptoms: (2) Uncontrolled type 2 diabetes mellitus: Plan Pt is a 48 yo female with PMH of migraines, PTSD, DM, HTN, IBS, anxiety, bipolar, and ARIELLE presenting d/t sudden onset left sided facial droop and left arm/leg weakness. 1) Stroke-like symptoms - sudden onset of left sided symptoms ~20:00 11/30, slurred speech - lab work WNL; VSS; exam WNL; head CT neg, head/neck CTA WNL - will continue neuro checks q2hr; hold PO meds until bedside swallow passed - MRI brain: no acute infarct or intracranial hemorrhage; r. mastoid effusion; few scattered punctate foci of T2 hyperintensity w/in periventricular and subcortical white matter of supratentorial brain, favoring mild microvascular ischemic changes - cervical spine MRI: no fracture or subluxation; no disc herniations or sig central canal narrowing; mild foraminal narrowing at C3-C4 and C4-C5 - all Sx would be consistent with a complicated/hemiplegic migraine, including the T2 hyperintensities found on MRI-brain 2) Complicated/Hemiplegic migraine - for possibility of complicated migraine, pt given amlodipine, 2.5 mg, PO; Tylenol, 1000 mg, IV x 2; diphenhydramine, 25 mg, IV x 2 3) Nausea/vomiting - pt w/ week-long Hx of N/V - urine drug screen, positive for marijuana; UA, no acute findings - DDX include part of migraine/complicated migraine, gastroparesis, cannabis hyp eremesis syndrome, cyclic vomiting syndrome - give some metoclopramide for gastroparesis prevention 4) T2DM - last A1c 11/2023 11.5% - SSI w/ basal coverage while inpatient 5) Hypomagnesemia - 1.6 upon admission; repleted with 2g - continue to monitor Consider resumption of home PO meds upon results of bedside swallow. Dispo: admit to med/surg VTE ppx: deferred upon admission d/t projected short stay Code: full Diet: NPO pending bedside swallow Admission and Anticipated Discharge Date Admission Date: December 02, 2023 Supervising Physician Co-Signing Physician Notes I personally examined the patient and verified all [place] points of history and exam, discussed case, and agree with decision making with Dr Rodriguez Feeling better than even when seen by resident physician earlier. Basically down to left-sided numbness on her face, arm and leg have improved. She is walked to and from the bathroom under her own power with no difficulty. Discussed etiologies, she agrees that atypical migraine is quite probable. Discussed with patient that it is sort of impossible to rule out a TIA given resolving deficits and her risk factors, and in that respect, it certainly quite reasonable to have her on an 81 mg aspirin, but strongly suspect this to be an atypical migraine. Vitals noted, in general she is awake and alert pleasant no distress. HEENT normocephalic atraumatic mucous membranes moist. Breathing unlabored no accessory muscle use good effort. Skin shows no rashes no pallor or icterus. Neuro without focal deficits. Left-sided neurologic deficitsother than facial paresthesiasseems to have resolved. As discussed above, complicated migraine seems to be far and away the most likely. Given her uncontrolled diabetes, hypertension, hyperlipidemiait is hard to definitively rule out a slowly resolving TIA, but given the extent of her symptoms on presentation and her normal MRI, I strongly favor complicated migraine. For her complicated migraineamlodipine, try to help hasten symptom resolution with IV Tylenol/IV Benadryl. As it relates to the "cannot rule out small vessel TIA"will add an 81 mg aspirin, will defer statin decision to her PCP Subjective Patient presents today with a lot of fatigue, residual left-sided weakness, and a week-long history of nausea and vomiting, in addition to slurring her words. Patient does not endorse a current headache or any numbness or tingling anywhere, but does have a history of complicated migraines. Review of Systems Constitutional: + fatigue; no fever and no chills Eyes: no diplopia and no worsening vision Respiratory: no cough, no chest congestion and no dyspnea Cardiovascular: no chest pain and no palpitations Gastrointestinal: + abdominal pain, + nausea, + vomiting ( patient has been having N/V/AP for a week), + constipation (due to her IBS) and + diarrhea/loose stools Genitourinary: no dysuria and no urinary frequency Neurologic: + localized weakness (weakness in left a rm and leg) and + dizziness (upon standing); no tingling, no numbness and no headache(s) Physical Exam Constitutional: + morbidly obese Respiratory: normal respiratory effort, lungs clear to auscultation Cardiovascular: RRR, no murmur, no edema Gastrointestinal (Abdomen): Percussion/Palpation: + abdomen tender (epigastric pain, does not radiate) Neurologic: normal touch/pain/proprioception and + focal motor deficit (decreased strength (4/5 in LUE, LLE)); not confused Motor/Sensory: + abnormal movement Cranial Nerves: PERRL, normal accommodation, EOM intact bilaterally, normal facial strength, tongue midline and able to elevate should ers bilaterally Coordination: normal hupgqu-lh-dodm test and normal gmbg-lf-dteh test Psychiatric: A+Ox3, euthymic affect Results & Data Results & Data Vital Signs (Past 12 Hours) Vital Signs Temp Pulse Pulse Pulse Resp BP BP 12/02/23 03:00 12/02/23 03:00 12/02/23 03:00 12/02/23 03:00 36.5 C 61 14 112/77 12/02/23 02:00 64 18 112/84 12/02/23 00:00 61 18 134/77 12/01/23 23:00 58 L 18 138/82 12/01/23 22:53 66 20 155/102 H 12/01/23 22:44 73 12/01/23 22:38 36.5 C 67 12 164/96 H Pulse Ox Pulse Ox O2 Del Method O2 Del Method 12/02/23 03:00 Room Air 12/02/23 03:00 Room Air 12/02/23 03:00 96 Room Air 12/02/23 03:00 96 Room Air 12/02/23 02:00 93 Room Air 12/02/23 00:00 97 Room Air 12/01/23 23:00 98 12/01/23 22:53 12/01/23 22:44 12/01/23 22:38 95 Room Air
--- NOTE | 2023-12-02 08:33 | Magnetic Resonance Report ---
CERVICAL SPINE MRI HISTORY: left sided weakness TECHNIQUE: Multiplanar multisequence MRI of the cervical spine was performed without the use of contr ast. COMPARISON STUDY: Cervical spine CT 10/18/2023. FINDINGS: Suboptimal evaluation of the cervical spine due to the motion artifact. No fracture or subl uxation. Disc spaces are preserved. Prevertebral soft tissues and the C1-C2 interval are intact. The cervical spinal cord appears to be normal and course, caliber, and signal intensity. However, this is suboptimally assessed due to the motion artifact. No definite disc herniations. C2-C3: No significant central canal or neural foraminal narrowing. C3-C4: Mild left-sided neural foraminal narrowing due to the uncovertebral and facet hypertrophy. No significant central canal or right-sided neural foraminal narrowing. C4-C5: Mild bilateral neural foraminal narrowing due to the uncovertebral hypertrophy. No significant central canal narrowing. C5-C6: No significant central canal or neural foraminal narrowing. C6-C7: No significant central canal or neural foraminal narrowing. C7-T1: No significant central canal or neural foraminal narrowing. IMPRESSION: 1. Suboptimal evaluation of the cervical spine due to the motion artifact. 2. No fracture or subluxation. 3. The cervical spinal cord appears grossly intact. 4. No disc herniations. No significant central canal narrowing. 5. Mild neural foraminal narrowing at C3-C4 and C4-C5 as described above. ACT 112: Negative or not required by law. Electronically signed by: Neftali Nascimento M.D. 12/02/2023 8:31 AM
--- NOTE | 2023-12-02 08:33 | Magnetic Resonance Report ---
Brain MRI WITHOUT CONTRAST HISTORY: Slurred speech. Left arm and leg weakness. stroke like symptoms TECHNIQUE: Multiplanar multisequence MRI of the brain was performed without the use of contrast. COMPARISON STUDY: None. FINDINGS: There are no areas of restricted diffusion to suggest acute infarction. The midline structu res are intact. The paranasal sinuses are clear. Right mastoid effusion, unchanged. The left mastoid air cells are clear. There are few scattered punctate foci of T2 hyperintensity seen within the periv entricular and subcortical white matter of the supratentorial brain. These are nonspecific but favor mild microvascular ischemic change.. The ventricles and sulci are within normal limits for age. There is no mass, hematoma, midline shift. The major vascular flow-voids at the skull base are well mainta ined. IMPRESSION: 1. No acute infarct or intracranial hemorrhage. 2. Right mastoid effusion, unchanged. 3. There are few scattered punctate foci of T2 hyperintensity seen within the periventricular and sub cortical white matter of the supratentorial brain. These are nonspecific but favor mild microvascular ischemic change. ACT 112: Negative or not required by law. Electronically signed by: Neftali Nascimento M.D. 12/02/2023 8:31 AM
[2023-12-02] MEDS ORDERED: LANTUS PER UNIT CHARGE SQ SCH (09:00)
--- OUTSIDE RECORDS SUMMARY | 2023-12-02 09:42 | External Medical Summary | Continuity of Care Document ---
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 Name Role Phone Sonya Heard Primary Care Physician [phone] Encounter [facility] [id number] Date(s): 11/28/23 - 11/28/23 [facility] [address], [address], [address] [place] [address] Encounter Diagnosis Body mass index [BMI] 39.0-39.9, adult(Discharge Diagnosis) - 11/28/23 Asthma(Discharge Diagnosis) - 11/15/23 Medical marijuana use(Discharge Diagnosis) - 11/28/23 Seasonal allergic rhinitis(Discharge Diagnosis) - 11/28/23 Discharge Disposition: Home or Self Care Attending Physician: BROOKLYN Cano Cheri P Referring Physician: DO Heard Allison B Allergies, Adverse Reactions, Alerts Substance Reaction Severity Status morphine Active Adhesive bandage Active Pollen itchy Active Tape Active Bee stings n/a Active CeleXA Active Immunizations Given and Recorded Vaccine Date Status Refusal Reason influenza virus vaccine, inactivated 11/09/23 Give n pneumococcal 23-valent vaccine 09/16/22 Recorded tetanus/diphtheria/pertuss, acel (Tdap) 03/01/22 R ecorded SARS-CoV-2 (COVID-19) mRNA BNT-162b2 vax 12/31/20 Recorded SARS-CoV-2 (COVID-19) mRNA BNT-162b2 vax 12/10/20 Recorded tetanus toxoids-diphtheria, Td (Adult) 09/04/08 Re corded tetanus toxoids-diphtheria, Td (Adult) 09/04/96 Re corded Medications albuterol CFC free 90 mcg/inh MDI Start: 09/12/23 16:05:56 EST, 1 Unknown, Unknown, 0 Refill(s) Start Date: 09/12/23 Status: Ordered albuterol CFC free 90 mcg/inh MDI Start: 11/28/23 15:56:00 EDT, 2 puff, inhaled, qid, Disp# 6.7 g, Refills: 5, Waste 2-3 sprays if not used in 2wks+. Shake well 5-10 sec, may take 1-2 puffs inhaled Q4-6 hrs PRN SOB, cough, or wheezing. Max 12 puffs/day., PRN: as needed for wheezing, P... Start Date: 11/28/23 Stop Date: 05/26/24 Status: Ordered albuterol-ipratropium 2.5 mg-0.5 mg/3 mL inhalation solution Start: 05/12/23 12:26:54 EDT, 3 Unknown, Unknown, 2 Refill(s) Start Date: 05/12/23 Status: Ordered atorvastatin 40 mg oral tablet Start: 03/02/23 9:29:00 EDT, 1 tab, PO, qhs Start Date: 03/02/23 Status: Ordered azelastine-fluticasone 137 mcg-50 mcg/inh nasal spray Start: 09/26/19 10:25:00 EST, See Instructions, 2 sprays intranasal daily prn Start Date: 09/26/19 Status: Ordered azithromycin 250 mg oral tablet Start: 10/06/23 0:00:00 EST, Unknown, 0 Refill(s), take 500 mg today (day 1), then 250 mg for 4 days (days 2-5) Start Date: 10/06/23 Status: Ordered Breo Ellipta 200 mcg-25 mcg/inh inhalation powder Start: 03/02/23 9:27:00 EDT, 1 puff, inhaled, Daily, Disp# 1 each Start Date: 03/02/23 Stop Date: 04/01/23 Status: Ordered cyclobenzaprine 10 mg oral tablet Start: 03/02/23 9:33:00 EDT, 1 tab, PO, qhs, PRN: spasms Start Date: 03/02/23 Status: Ordered dicyclomine 20 mg oral tablet Start: 09/07/23 8:54:00 EST, 1 tab, PO, qid, Disp# 120 tab, Refills: 1, Pharmacy: [id number] Start Date: 09/07/23 Status: Ordered doxepin 25 mg oral capsule Start: 03/02/23 9:34:00 EDT, 1 cap, PO, qhs Start Date: 03/02/23 Status: Ordered DULoxetine 20 mg oral delayed release capsule Start: 03/02/23 9:26:00 EDT, 1 cap, PO, bid Start Date: 03/02/23 Status: Ordered EPINEPHrine 0.3 mg injectable kit Start: 09/26/19 10:25:00 EST, Start Date: 09/26/19 Status: Ordered estradiol 0.1 mg/g vaginal cream Start: 03/02/23 9:28:00 EDT, See Instructions, 1 g vaginal 2 x week Start Date: 03/02/23 Status: Ordered Florastor 250 mg oral capsule Start: 03/02/23 9:34:00 EDT, 1 cap, PO, bid Start Date: 03/02/23 Status: Ordered fluticasone 50 mcg/inh nasal spray Start: 04/29/14 10:35:00, 2 spray, each nostril, Daily Start Date: 04/29/14 Status: Ordered hydrOXYzine hydrochloride 10 mg oral tablet Start: 03/02/23 9:31:00 EDT, 1 tab, PO, Daily Start Date: 03/02/23 Status: Ordered levothyroxine 75 mcg (0.075 mg) oral tablet Start: 02/28/22 9:01:00 EDT, 1 tab, PO, Daily Start Date: 02/28/22 Status: Ordered lidocaine topical 5% patch Start: 03/25/23 0:00:00 EDT, 1 Unknown, Unknown, 0 Refill(s), leave on most painful area for 12 hrs Start Date: 03/25/23 Status: Ordered loperamide 2 mg oral capsule Start: 11/04/21 0:00:00 EST, 2 Unknown, Unknown, 0 Refill(s) Start Date: 11/04/21 Status: Ordered LORazepam 1 mg oral tablet Start: 05/13/23 0:00:00 EDT, 1 Unknown, Unknown, 0 Refill(s) Start Date: 05/13/23 Status: Ordered meclizine 25 mg oral tablet Start: 03/02/23 9:32:00 EDT, 1 tab, PO, tid, PRN: as needed for dizziness Start Date: 03/02/23 Status: Ordered Medical Marijuana Start: 01/07/21 9:35:00 EDT, 1 inh, inhaled Start Date: 01/07/21 Status: Ordered methocarbamol 500 mg oral tablet See Instructions, Disp# 90 tab, Refills: 5, TAKE 1 TABLET BY MOUTH EVERY 8 HOURS, Pharmacy[place] [facility] [place] [id number] Start Date: 03/01/21 Status: Ordered MiraLax oral powder for reconstitution Start: 03/02/23 9:29:00 EDT, 17 g =, PO, Daily, PRN: constipation Start Date: 03/02/23 Status: Ordered mirtazapine 45 mg oral tablet Start: 11/09/23 10:47:00 EST, 1 tab, PO, qhs Start Date: 11/09/23 Status: Ordered multivitamin Start: 09/26/19 10:30:00 EST, 1 tab, PO, Daily, lyla fumarate Start Date: 09/26/19 Status: Ordered naproxen 500 mg oral tablet Start: 03/02/23 9:25:00 EDT, 1 tab, PO, Daily, PRN: headache Start Date: 03/02/23 Status: Ordered NovoLIN R FlexPen 100 units/mL injectable solution 30 units in the am and 50 units at supper Start Date: 01/23/20 Status: Ordered nystatin 100,000 units/g topical ointment PLEASE SEE ATTACHED FOR DETAILED DIRECTIONS Start Date: 05/30/22 Status: Ordered ondansetron 4 mg oral tablet Start: 08/10/23 13:07:42 EST, 4 Unknown, Unknown, 0 Refill(s) Start Date: 08/10/23 Status: Ordered pantoprazole Start: 09/26/19 10:31:00 EST, 40 mg =, PO, Daily Start Date: 09/26/19 Status: Ordered pregabalin 100 mg oral capsule Start: 03/02/23 9:31:00 EDT, 1 cap, PO, bid Start Date: 03/02/23 Status: Ordered Senokot S 50 mg-8.6 mg oral tablet Start: 03/02/23 9:32:00 EDT, See Instructions, 1-2 tabs po BID prn constipation Start Date: 03/02/23 Status: Ordered Spiriva Respimat 1.25 mcg/inh inhalation aerosol Start: 04/15/21 14:46:00 EDT Start Date: 04/15/21 Status: Ordered SUMAtriptan Succinate Syringe 6 mg/0.5 mL subcutaneous solution Start: 03/02/23 9:26:00 EDT, 6 mg =, subQ, ONCE, May repeat in 2 hours if needed. Limit 2-3 days a week Start Date: 03/02/23 Status: Ordered topiramate 100 mg oral tablet Start: 05/13/23 0:00:00 EDT, 100 Unknown, Unknown, 0 Refill(s) Start Date: 05/13/23 Status: Ordered topiramate 25 mg oral capsule Start: 03/02/23 9:30:00 EDT, 1 cap, PO, Daily Start Date: 03/02/23 Status: Ordered VESIcare 5 mg oral tablet Start: 03/02/23 9:30:00 EDT, 1 tab, PO, Daily Start Date: 03/02/23 Status: Ordered Vitamin D3 50,000 intl units (1250 mcg) oral capsule Start: 03/02/23 9:34:00 EDT, 1 cap, PO, q7days Start Date: 03/02/23 Status: Ordered Voltaren 1% topical gel Start: 05/29/18 13:33:14 EDT, 1 appl, topical, qid, Disp# 100 g, Refills: 5, not to exceed 8 grams/day/single joint of upper extremities not to exceed 32 grams/day, PRN: Pain, Pharmacy: [facility] #[id number] Start Date: 05/29/18 Stop Date: 11/25/18 Status: Ordered Mental Status 11/28/23 Barriers to Learning one year None evide nt Mandatory Health Literacy Documentation Yes Health Literacy Communication Barriers N ever Primary Language Romanian Problem List Condition Confirmation Course Effective Dates Status H ealth Status Informant Acid reflux Confirmed Active Anxiety Confirmed Active Weakness Confirmed Active Asthma Confirmed Active Back pain Confirmed Active Biceps tendonitis Confirmed Active Bipolar disorder Confirmed Active History of Bronchitis Confirmed Active Carpal tunnel syndrome, bilateral Confirmed Active Celiac sprue Confirmed Active Chest pain Confirmed Active Chronic diarrhea Confirmed Active Cough Confirmed Active Depression Confirmed Active Dizziness Confirmed Active Dysphagia Confirmed Active SOB (shortness of breath) Confirmed Active 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 Family history of heart attack Confirmed Active Gastroparesis diabeticorum Confirmed Active Gastroparesis Confirmed Active High cholesterol Confirmed Active Left hip pain Confirmed Active History of TIAs Confirmed Active IT band syndrome Confirmed Active Shoulder impingement Confirmed Active Ankle injury Confirmed Active Right knee pain Confirmed Active Left elbow pain Confirmed Active Low back pain Confirmed Active Lumbar radiculopathy Confirmed Active Migraine Confirmed Active Myofascial pain Confirmed Active Neck pain Confirmed Active Neuropathy Confirmed Active Pain 1 Confirmed Active Right elbow pain Confirmed Active Finger pain, right Confirmed Active Right wrist pain Confirmed Active History of Pneumonia Confirmed Active Protruded lumbar disc Confirmed Active Sciatica Confirmed Active Shoulder pain, bilateral Confirmed Active Rotator cuff tendinitis Confirmed Active Sleep apnea Confirmed Active Snores Confirmed Active Spondylolysis Confirmed Active Finger strain Confirmed Active Rotator cuff tear Confirmed Active S/P orthopedic surgery, follow-up exam Confirmed Active Type 1 diabetes mellitus Confirmed Active Vitamin D deficiency Confirmed Active Whiplash injury to neck Confirmed Active 1low back and left hip Diagnosis Diagnosis Type Effective Dates Health Status Cl inical Service Informant Asthma Discharge Diagnosis 11/15/23 Non-Specified Body mass index [BMI] 39.0-39.9, adult Discharge Diagnosis 11/28/23 Non-Specified Medical marijuana use Discharge Diagnosis 11/28/23 Seasonal allergic rhinitis Discharge Diagnosis 11/28/23 Procedures Procedure Date Related Diagnosis Body Site Status CT of abdomen and pelvis 1 02/28/23 Completed Cdif Tox B Gene 2 02/25/22 Complet ed Laboratory findings data int erpretation 3 02/25/[address] of abdomen and pelvis 4 02/24/22 Completed Gastric emptying study 5 12/29/21 Completed Abscess 2009 Completed Bladder 6 2006 Completed Tubal ligation 2001 Completed Arthroscopy of shoulder 7 Completed Hysterectomy Completed Myringotomy Completed Tonsillectomy 8 Completed Tonsillectomy Completed Tubal ligation Completed 11) No acute abnormality 2) Heterogeneous low attenuation foci within hepatic segments 5 and 8 as well as the caudate. Incompletely characterized on this study but similar to the prior 2negative c diff 3Stool calprotectin 29 nl, Stool cx Shiga like toxin neg, Salmonella neg, Shigella neg, campylobacter neg 41) No bowel obstruction or bowel wall thickening. Normal appendix. 2) Hepatomegaly with hepatic steatosis 3) Cholecystectomy and hysterectomy 5Evidence for very slight delay in gastric emptying 6tack 7Right shoulder 8as a child Vital Signs Most recent to oldest [Reference Range]: 1 Height 160 cm (11/28/23 2:24 PM) Patient Weight 100.5 kg (11/28/23 2:24 PM) Body Mass Index 39.26 kg/m2 (11/28/23 2:24 PM) Temperature [36.5-37.9 DegC] 36.4 DegC *LOW* (11/28/23 2:24 PM) Heart Rate 71 bpm (11/28/23 2:24 PM) Respiratory Rate 16 br/min (11/28/23 2:24 PM) Blood Pressure 105/57mmHg (11/28/23 2:24 PM) Cuff Pulse Pressure 48 mmHg (11/28/23 2:24 PM) BP Location # 1 Right Arm (11/28/23 2:24 PM) Social History Social History Type Response Smoking Status Never smoked cigaret pio Sex Female Patient Care team information Care Team Personnel Name: DO Heard Allison B Position: Physician - Family Med Member Role: Primary Care Provider Address: Address: [address] [place] [id number] Care Team Related Persons Name: MAXIMUS HELLER Address: home [address] [place], [place] [id number] Name: OTILIO DOUGLAS Address: home [address] [place], [place] [id number]
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
--- OUTSIDE RECORDS SUMMARY | 2023-12-02 09:42 | External Medical Summary | Continuity of Care Document ---
Author Name Unknown Organization [address] [id number] Care Team Providers Care Sharepoint Admin Name Role Phone Sonya Heard Primary Care Physician [phone] Encounter [facility] [id number] Date(s): 11/17/23 - 11/17/[address] [address] [phone] Discharge Disposition: Home or Self Care Attending Physician: BROOK[place]N Golden Danielle B Allergies, Adverse Reactions, Alerts Substance Reaction Severity Status morphine Active Adhesive bandage Active CeleXA Active Pollen itchy Active Tape Active Bee stings n/a Active Immunizations Given and Recorded Vaccine Date [...] Date: 03/02/23 Stop Date: 04/01/23 Status: Ordered cholestyramine 4 g/4.8 g oral powder for reconstitution Start: 03/02/23 9:30:00 EDT, 4 g =, PO, bid, PRN: diarrhea Start Date: 03/02/23 Status: Ordered cyclobenzaprine 10 mg oral tablet Start: 03/02/23 9:33:00 EDT, 1 tab, PO, qhs, PRN: spasms Start Date: 03/02/23 Status: Ordered dicyclomine 20 mg oral tablet Start: 09/07/23 8:54:00 EST, 1 tab, PO, qid, Disp# 120 tab, Refills: 1, Pharmacy: [facility] [id number] Start Date: 09/07/23 Status: Ordered doxepin 25 [...] PO, Daily Start Date: 02/28/22 Status: Ordered loperamide 2 mg oral capsule Start: 03/02/23 9:29:00 EDT, 1 cap, PO, q6h, PRN: as needed for loose stool Start Date: 03/02/23 Status: Ordered meclizine 25 mg oral tablet Start: 03/02/23 9:32:00 EDT, 1 tab, PO, tid, PRN: as needed for dizziness Start Date: 03/02/23 Status: Ordered Medical Marijuana Start: 01/07/21 9:35:00 EDT, 1 inh, inhaled Start Date: 01/07/21 Status: Ordered methocarbamol 500 mg oral tablet See Instructions, Disp# 90 tab, Refills: 5, TAKE 1 TABLET BY MOUTH EVERY 8 HOURS, Pharmacy: [facility] [id number] Start Date: 03/01/21 Status: Ordered MiraLax oral [...] 05/30/22 Status: Ordered ondansetron 4 mg oral tablet, disintegrating Start: 03/02/23 9:04:00 EDT, 1 tab, PO, q6h, PRN: nausea and vomiting Start Date: 03/02/23 Status: Ordered pantoprazole Start: 09/26/19 10:31:00 EST, [...] to exceed 32 grams/day, PRN: Pain, Pharmacy: [id number] Start Date: 05/29/18 Stop Date: 11/25/18 Status: Ordered Mental Status 11/17/23 Barriers to Learning one year None evide nt Mandatory Health Literacy Documentation Yes Health Literacy Communication Barriers N ever Primary Language Kiswahili Problem List Condition Confirmation Course Effective Dates [...] Confirmed Active 1low back and left hip Procedures Procedure Date Related Diagnosis Body Site [...] Most recent to oldest [Reference Range]: 1 Patient Weight 99.4 kg (11/17/23 4:08 PM) Heart Rate 73 bpm (11/17/23 4:08 PM) Respiratory Rate 18 br/min (11/17/23 4:08 PM) Blood Pressure 110/66mmHg (11/17/23 4:08 PM) Cuff Pulse Pressure 44 mmHg (11/17/23 4:08 PM) Social History Social History Type Response Smoking Status Never smoked cigaret pio Sex Female Patient Care team information Care Team Personnel Name: DO Heard Allison B Position: Physician - Family Med Member Role: Primary Care Provider Address: Address: [address] [place] [id number] [place] Care Team Related Persons Name: MAXIMUS HELLER Address: home [address] [place], [place] [id number] Name: OTILIO DOUGLAS Address: home [address] [place], [place] [id number]
--- OUTSIDE RECORDS SUMMARY | 2023-12-02 09:42 | External Medical Summary | Summary of Care ---
Author Name Unknown Organization [facility] Address [address] [place] [address] Phone [phone] Care Team Providers Care Personal Support Worker Name Role Phone Deidra Howard DO Primary Care Provider [phone] Reason for Visit * Reason Onset Date Comments Fax 11/21/2023 Med list Encounter Details Date Type Department Care Team (Late st Contact Info) Description 11/21/2023 Telephone Family Practice [facility] [address] [place] [address] Deidra Howard DO [address] [place] [address] Fax (Med list) Allergies Active Allergy Reactions Criticality Noted Date Comments Bee Venom Anaphylaxis High 03/28/2023 Citalopram Hydrobromide Other (Please comment) Medium 10/22/2014 Lock jaw Morphine And Related Hives 07/20/2010 Adhesive Tape Itching 07/20/2010 documented as of this encounter (statuses as of 11/21/2023) Medications Medication Sig Dispensed Refills Start Date End Date Status SIMVASTATIN 10 MG PO TABS 1 tab daily 0 Active IBUPROFEN 600 MG PO TABS 2 tabs daily 0 Active LORAZEPAM 0.5 MG PO TABS as needed for pain 0 Active PRAZOSIN HCL 1 MG PO CAPS 1 cap at bedtime 0 Active FLUTICASONE PROPIONATE 50 MCG/ACT NA SUSP USE DIRECTED. 3 06/03/2014 Act gerhard LANTUS 100 UNIT/ML SUBQ SOLN 25 units at bedtime 0 Active QUETIAPINE FUMARATE 100 MG PO TABS 1 tab three times per day 0 Active lisinopril (PRINIVIL) 2.5 MG Tablet 3 12/01/2014 Active prazosin (MINIPRESS) 2 MG Capsule Take 1-1mg capsule and 1-2mg capsule by mouth in the evening 2 12/11/2014 Active Azelastine HCl 137 MCG/SPRAY Nasal Solution Administer 2 Sprays into nostril in the morning. 0 03/17/2023 Active Atorvastatin Calcium 40 MG Oral Tablet (Lipitor) Take 1 Tablet by mouth in the morning. 0 03/17/2023 Active Cholecalciferol 50 MCG (2000 UT) Oral Capsule Take 1 Capsule by mouth in the morning. 0 03/02/2023 Active Cholestyramine Light 4 GM/DOSE Oral Powder Take 4 g by mouth 2 times a day as needed. 0 03/02/2023 Active Doxepin HCl 50 MG Oral Capsule (SINEquan) Take 1 Capsule by mouth at bedtime. 0 03/17/2023 Active DULoxetine HCl 20 MG Oral Capsule Delayed Release Particles (Cymbalta) Take 1 Capsule by mouth in the morning and 1 Capsule before bedtime. 0 03/02/2023 Active EPINEPHrine 0.3 MG/0.3ML Injection Solution Auto-injector (Autoinjector) Inject 0.3 mg into a large muscle as needed. 0 03/01/2023 Active Estradiol 0.1 MG/GM Vaginal Cream (Estrace) Administer 0.1 g into the vagina in the morning. Insert 1/4 applicalator vaginally 2 times a week. 0 03/01/2023 Active Furosemide 20 MG Oral Tablet (Lasix) Take 1 Tablet by mouth in the morning. 0 03/15/2023 Active hydrOXYzine HCl 50 MG Oral Tablet Take 1 Tablet by mouth in the morning. 0 01/30/2023 Active hydrOXYzine HCl 10 MG Oral Tablet (Atarax) Take 1 Tablet by mouth 2 times a day as needed. 0 01/29/2023 Active HumuLIN R U-500 KwikPen 500 UNIT/ML Subcutaneous Solution Pen-injector 0 03/21/2023 Active Levothyroxine Sodium 75 MCG Oral Tablet (Levoxyl) Take 1 Tablet by mouth in the morning. 0 02/28/2022 Active Lidocaine 5 % External Patch (Lidoderm) 0 03/26/2023 Active Loperamide HCl 2 MG Oral Capsule (Imodium) 1 Capsule. 0 03/02/2023 Active Ondansetron 4 MG Oral Tablet Disintegrating (Zofran) DISSOLVE 1 TAB ORALLY EVERY 6 HOURS NEEDED FOR NAUSEA AND VOMITING 0 03/03/2023 Active Naproxen 500 MG Oral Tablet (Naprosyn) 1 Tablet. 0 03/02/2023 Active predniSONE 20 MG Oral Tablet (Deltasone) 0 03/26/2023 Active Pregabalin 100 MG Oral Capsule (Lyrica) TAKE 1 CAPSULE BY MOUTH EVERY 12 HOURS 0 03/01/2023 Active Saccharomyces boulardii 250 MG Oral Capsule 1 Capsule. 0 03/02/2023 Active Solifenacin Succinate 5 MG Oral Tablet (VESIcare) Take 1 Tablet by mouth in the morning. 0 03/17/2023 Active Sucralfate 1 GM Oral Tablet (Carafate) Take 1 Tablet by mouth in the morning and 1 Tablet before bedtime. 0 03/06/2023 Active SUMAtriptan Succinate 6 MG/0.5ML Subcutaneous Solution Auto-injector (Imitrex) PLEASE SEE ATTACHED FOR DETAILED DIRECTIONS 0 03/17/2023 Active Spiriva Respimat 1.25 MCG/ACT Inhalation Aerosol Solution INHALE 2 PUFFS BY MOUTH ONCE DAILY IN THE MORNING 0 03/17/2023 Active Topiramate 50 MG Oral Tablet (topAMAX) Take 1 Tablet by mouth in the morning. 0 01/17/2023 Active Triamcinolone Acetonide 0.5 % External Cream (Aristocort) APPLY TOPICALLY TWICE A DAY FOR 2 WEEKS 0 03/17/2023 Active Albuterol Sulfate (2.5 MG/3ML) 0.083% Inhalation Nebulization Solution (Proventil) Inhale 1 Vial via nebulizer every 6 hours as needed for Wheezing. 0 Active Accu-Chek Guide In Vitro Strip (Glucose Blood) Test as directed 3 times a day. Type II Diabetes 0 Active Diclofenac Sodium 1 % External Gel Apply 2 % topically to affected area 4 times a day as needed. Apply 2 grams topically 4 times a day as needed for inflammation. 0 Active Fluticasone Furoate-Vilanterol 200-25 MCG/ACT Inhalation Aerosol Powder Breath Activated (BREO ellipta) Inhale by mouth daily. 0 Active Ipratropium-Albutero l 0.5-2.5 (3) MG/3ML Inhalation Solution (Duoneb) Inhale 3 mL by mouth every 6 hours as needed. 0 Active Mirtazapine 45 MG Oral Tablet (Remeron) Take 1 Tablet by mouth at bedtime. 0 Active Pantoprazole Sodium 40 MG Oral Tablet Delayed Release (Protonix)Indication s:Gastroesophageal reflux disease, unspecified whether esophagitis present TAKE 1 TABLET BY MOUTH EVERY DAY IN THE MORNING 90 Tablet 1 11/07/2023 Active documented as of this encounter (statuses as of 11/21/2023) Active Problems Problem Noted Date Diagnosed Date Obesity, morbid (more than 1 00 lbs over ideal weight or BMI > 40) 03/28/2023 Peripheral polyneuropathy 03/28/2023 Chronic nonintractable headache 03/28/2023 Acquired hypothyroidism 03/28/2023 Gastroparesis 03/28/2023 Celiac disease 03/28/2023 OAB (overactive bladder) 03/28/2023 Food insecurity 03/13/2023 Overview: Per [facility] Protocol Depression 08/26/2014 Attention deficit disorder without hyperactivity 08/26/2014 Schizophrenia 08/26/2014 Post traumatic stress disorder (PTSD) 08/26/2014 Hyperlipidemia 11/10/2011 Asthma with severity to be determined 11/10/2011 Overview: ICD-10 update of inactive term GERD (gastroesophageal reflux disease) 2 HTN, goal below 140/90 11/10/2011 Type 2 diabetes mellitus wit h hemoglobin A1c goal of less than 7.0% 11/10/2011 Overview: ICD-10 update of inactive term Abdominal pain, left lower quadrant 07/20/2010 Nausea 07/20/2010 Overview: ICD-10 update of inactive term documented as of this encounter (statuses as of 11/21/2023) Social History Tobacco Use Types Packs/Day Years Used Date Smoking Tobacco: Never Passive Smoke Exposure: Current Smokeless Tobacco: Never Alcohol Use Standard Drinks/Week Comments Yes 0 (1 standard drink = 0.6 oz pur e alcohol) occ Hunger Vital Sign Answer Date Recorded Within the past 12 months, y ou worried that your food would run out before you got the money to buy more. Often true 03/06/20 23 Within the past 12 months, t he food you bought just didn't last and you didn't have money to get more. Often true 03/06/2023 Sex and Gender Information Value Date Recorded Sex Assigned at Female 03/06/2023 1:06 AM EDT Gender Identity Female 03/06/2023 1:06 AM EDT Sexual Orientation Straight 03/06/2023 1: 06 AM EDT Job Start Date Occupation Industry Not on file Not on file Not on file documented as of this encounter Miscellaneous Notes * Telephone Encounter - Myrna Marroquin LPN - 11/21/2023 10:24 AM EDT Faxed med list. * Telephone Encounter - Deidra Patton OSA - 11/21/2023 10:20 AM EDT Caller requesting the following information to be faxed: Name/Company of caller: Martha ([employer]) Information requested to be faxed: recent med list Fax number: [phone] Attention to Name/Company: na Any additional information?: pt is at appointment and needs recent med list documented in this encounter Plan of Treatment Upcoming Encounters Date Type Department Care Team (Late st Contact Info) Description 11/30/2023 11:00 AM EDT Office Visit Otolaryngology/Head & Neck/Facial Plastic Surgery [address] [place] [address] Estevan Mulligan MD [address] [place] [address] Health Maintenance Due Date Last Done Comments Pneumococcal Vaccine: Pediatrics (0 to 5 Years) and At-Risk Patients (6 to 64 Years) (1 of 2 - PCV) 1979 Depression Screening 1985 HIV Screening 1988 Albumin/Creatinine Ratio 1991 Diabetic Eye Exam 1991 Diabetic Foot Exam 1991 Hepatitis C Screening 1991 DTaP,Tdap,and Td Vaccines (1 - Tdap) 1992 Hepatitis B (1 of 3 - 19+ 3-dose series) 1992 HbA1c 07/02/2015 12/31/2014 GFR 01/01/2016 12/31/2014, 07/20/2010 TSH 01/01/2016 12/31/2014 Cologuard 2018 Colonoscopy 2018 Colorectal Cancer Screening 2018 Fecal Occult Blood Test 2018 Sigmoidoscopy 2018 Lipid Panel 01/01/2020 12/31/2014 *SPIROMETRY ONCE FOR ASTHMA-ADULT 03/03/2023 COVID-19 Vaccine (1 - 2022- season) 2023 Influenza Vaccine (FLU shot) (#1) 2023 06/24/2019, 05/14/2018, 05/12/2016, Additional history exists Zoster Vaccines (1 of 2) 2023 Mammogram 05/24/2024 05/24/2023, 04/14/2023 GARDASIL-HPV IMMUNIZATION SERIES Aged Out No longer eligible based on patient's age to complete this topic MENINGOCOCCAL (MENACTRA/MENVEO) Aged Out No longer eligible based on patient's age to complete this topic documented as of this encounter Medical Devices Not on filedocumented as of this encounter Care Teams Personal Support Worker Relationship Specialty Start Date End Date Deidra Howard DO [address] [place] [address] PCP - General Family Medicine 03/10/23 documented as of this encounter
--- OUTSIDE RECORDS SUMMARY | 2023-12-02 09:42 | External Medical Summary | Summary of Care ---
Author Name Unknown Organization [facility] Address [address] [facility] [place] [address] Phone [phone] Care Team Providers Care Button Sewer Name Role Phone Deidra Howard DO Primary Care Provider [phone] Encounter Details Date Type Department Care Team (Late st Contact Info) Description 11/23/2023 Orders Only Family Practice [facility] [address] [place] [address] Deidra Howard DO [address] [place] [address] Allergies Active Allergy Reactions Criticality Noted Date Comments Bee Venom Anaphylaxis High 03/28/2023 Citalopram Hydrobromide Other (Please comment) Medium 10/22/2014 Lock jaw Morphine And Related Hives 07/20/2010 Adhesive Tape Itching 07/20/2010 documented as of this encounter (statuses as of 11/23/2023) Medications Medication Sig Dispensed Refills Start Date [...] as of this encounter (statuses as of 11/23/2023) Active Problems Problem Noted Date Diagnosed Date [...] as of this encounter (statuses as of 11/23/2023) Social History Tobacco Use Types Packs/Day Years [...] on file documented as of this encounter Plan of Treatment Upcoming Encounters Date Type Department Care Team (Late st Contact Info) Description 11/30/2023 11:00 AM EDT Office Visit Otolaryngology/Head & Neck/Facial Plastic Surgery [address] [place] [facility] [place] [address] Estevan Mulligan MD [address] [place] [facility] [place] [address] Health Maintenance Due Date Last Done Comments Pneumococcal Vaccine: Pediatrics (0 to 5 Years) and At-Risk Patients (6 to 64 Years) (1 of 2 - PCV) 1979 Depression Screening 1985 HIV Screening 1988 Albumin/Creatinine Ratio 1991 Diabetic Foot Exam 1991 Hepatitis C [...] of 2) 2023 Mammogram 05/24/2024 05/24/2023, 04/14/2023 Diabetic Eye Exam 11/22/2024 11/21/2023 GARDASIL-HPV IMMUNIZATION SERIES Aged Out No longer eligible based on patient's age to complete this topic MENINGOCOCCAL (MENACTRA/MENVEO) Aged Out No longer eligible based on patient's age to complete this topic documented as of this encounter Medical Devices Not on filedocumented as of this encounter Procedures Procedure Name Priority Date/Time Associated Diagnosis Comments DIABETIC EYE EXAM Routine 11/21/2023 documented in this encounter Results * DIABETIC EYE EXAM (11/21/2023) 11/21/2023 Lainey Golden OD OTHER OUTSIDE LAB (SEE SCANNED REPORT) documented in this encounter Care Teams Button Sewer Relationship Specialty Start Date End Date Deidra Howard DO [address] [place] [address] PCP - General Family Medicine 03/10/23 documented as of this encounter
[2023-12-02] MEDS ORDERED: Nursing to Pharmacy Communication SCH (11:15)
[2023-12-02 12:10] LABS: Appearance Urine Clear (Clear); Bilirubin Urine Negative (Negative); Blood Urine Negative (Negative); Color Urine Yellow; Glucose Urine UA Trace (Negative); Ketones Urine Negative (Negative); Leukocyte Esterase Urine Negative (Negative); Nitrite Urine Negative (Negative); Protein Urine Negative (Negative); Specific Gravity Urine > 1.045 (1.000-1.030); Urobilinogen Urine Negative (Negative)
[2023-12-02] MEDS: FLUTICASONE/VILANTEROL 200/25MCG 14 PUFFS/INHALER INH SCH (12:22)
[2023-12-02 12:36] LABS: Amphetamines+Metham, Urine Neg (Neg); Barbiturates, Urine Neg (Neg); Benzodiazepine, Urine Neg (Neg); Cocaine, Urine Neg (Neg); MDMA (Ecstacy), Urine Neg (Neg); Marijuana, Urine Pos (Neg); Methadone, Urine Neg (Neg); Opiate, Urine Neg (Neg); Phencyclidine, Urine Neg (Neg)
[2023-12-02] MEDS: diphenhydrAMINE 50 MG/ML VIAL IV STA ×2 (13:53→18:15)
[2023-12-02] MEDS: amLODIPine BESYLATE 5 MG TAB PO ONE (13:54)
[2023-12-02] MEDS: ACETAMINOPHEN 1,000 MG/100 ML VIAL IV STA ×2 (13:54→18:14)
--- NOTE | 2023-12-02 19:34 | Billing Data ---
Date of Service December 02, 2023 Coding Level of Care Code 46487 INT INP/OBS CARE
[2023-12-02] MEDS: METOCLOPRAMIDE HCL 5 MG TABLET PO SCH (20:16)
[2023-12-02] MEDS: INSULIN ASPART PER UNIT CHARGE SC SCH (21:01)
[2023-12-03] MEDS: MIRTAZAPINE TAB 15 MG TAB PO SCH (00:34)
[2023-12-03] MEDS: PREGABALIN 100 MG CAP PO SCH (00:34)
--- NOTE | 2023-12-03 06:56 | Discharge Summary ---
Date of Service December 03, 2023 Admission HPI Per Admitting Provider Pt is a 48 yo female with PMH of migraines, PTSD, DM, HTN, IBS, anxiety, bipolar, and ARIELLE presenting d/t sudden onset left sided facial droop and left arm/leg weakness. Apparently, the pt awoke this evening ~20:00 with a left facial droop, left facial numbness, and left arm/leg weakness. This morning the patient was awake upon entering her room, feeling much better although with minor headache today. Her left-sided motor deficits have disappeared, resolved and patient today has 5/5 muscle strength on both right and left-sided UE's and LE's. Admission Exam Per Admitting Provider Constitutional: NAD, vitals WNL. Respiratory: CTA bilaterally. Non labored breathing. No rhonchi, wheezing, or crackles. Cardiovascular: RRR. No murmurs noted. No LE edema. Skin: No rashes or skin lesions noted. Neurologic: Sensation grossly intact. No FND appreciated. 5/5 strength in bilateral UE and LE plantar/dorsiflexion. No facial droop present. Tongue midline upon protrusion. Symmetric movement of bilateral eyebrows. Psychiatric: Speech slightly slow and garbled (unclear if this is dysarthric or from just being awoken) but of normal content. Mood and affect congruent. Principal Diagnosis complicated/hemiplegic migraine Discharge Exam Constitutional + morbidly obese Respiratory normal respiratory effort, lungs clear to auscultation Cardiovascular RRR, no murmur, no edema Gastrointestinal (Abdomen) normal bowel sounds, soft, nontender, no hepatosplenomegaly Percussion/Palpation: + abdomen tender (epigastric pain, does not radiate) Neurologic normal touch/pain/proprioception; no focal motor deficits (strength (5/5 in LUE, LLE), completely restored) and not confused Motor/Sensory: + abnormal movement Cranial Nerves: PERRL, normal accommodation, EOM intact bilaterally, normal facial strength, tongue midline and able to elevate shoulders bilaterally Coordination: normal kcysxg-hb-[id number] test and normal rrrd-ry-wgek test Psychiatric A+Ox3, euthymic affect Discharge Data Allergies Allergy/AdvReac Type Severity Reaction Status Date / Time adhesive Allergy Intermediate skin Verified 12/01/23 22:44 redness, itchy bee venom protein (honey bee) Allergy Intermediate red Verified 12/01/23 22:44 welts/swelling > bruising citalopram AdvReac Intermediate jaw pain, Verified 12/01/23 22:44 headaches morphine AdvReac Intermediate localized Verified 12/01/23 22:44 reaction, redness/welts due to IV infiltration pollen extracts AdvReac Intermediate itchy Verified 12/01/23 22:44 eyes, scratchy throat, swollen eyes Consultations 12/02/23 01:06 ED Decision to Admit Stat Ordered Studies 12/01/23 22:23 CT angio head w con Stat CT angio neck with con Stat CT head/brain wo con Stat 12/01/23 23:45 MR brain wo con Stat MR cervical spine wo con Stat Hospital Course (1) Stroke-like symptoms: (2) Uncontrolled type 2 diabetes mellitus: Plan Pt is a 48 yo female with PMH of migraines, PTSD, DM, HTN, IBS, anxiety, bipolar, and ARIELLE presenting d/t sudden onset left sided facial droop and left arm/leg weakness. 1) Stroke-like symptoms - sudden onset of left sided symptoms ~20:00 11/30, slurred speech - lab work WNL; VSS; exam WNL; head CT neg, head/neck CTA WNL - will continue neuro checks q2hr; hold PO meds until bedside swallow passed - MRI brain: no acute infarct or intracranial hemorrhage; r. mastoid effusion; few scattered punctate foci of T2 hyperintensity w/in periventricular and subcortical white matter of supratentorial brain, favoring mild microvascular ischemic changes - cervical spine MRI: no fracture or subluxation; no disc herniations or sig central canal narrowing; mild foraminal narrowing at C3-C4 and C4-C5 - all Sx would be consistent with a complicated/hemiplegic migraine, including the T2 hyperintensities found on MRI-brain - pt prescribed aspirin, 81 mg, daily for 30 days --> should follow up with her PCP regarding stroke prevention in context of uncontrolled T2DM (A1C, 11.5%) and T2 hyperintensities found on MRI 2) Complicated/Hemiplegic migraine - for possibility of complicated migraine, pt given amlodipine, 2.5 mg, PO; Tylenol, 1000 mg, IV x 2; diphenhydramine, 25 mg, IV x 2 - pt's motor function of LUE/LLE completely restored and normal morning of - pt w/ CURRAN morning of 12/03/23, Tylenol, 1000 mg, IV given again (pt claimed CURRAN felt like non-migraine CURRAN) 3) Nausea/vomiting - pt w/ week-long Hx of N/V - urine drug screen, positive for marijuana; UA, no acute findings - DDX include part of migraine/complicated migraine, gastroparesis, cannabis hyperemesis syndrome, cyclic vomiting syndrome - give some metoclopramide for gastroparesis prevention, prescribed metoclopramide, 5 mg, BID, 2 weeks as outpt to help w/ gastroparesis 4) T2DM - last A1c 11/2023 11.5% - SSI w/ basal coverage while inpatient 5) Hypomagnesemia - 1.6 upon admission; repleted with 2g, 1.8 following morning - advised the patient to take oral magnesium to replete Mg levels - continue to monitor Consider resumption of home PO meds upon results of bedside swallow. Dispo: admit to med/surg VTE ppx: deferred upon admission d/t projected short stay Code: full Diet: NPO pending bedside swallow Total Time Total Time Spent Total Time Spent (In Minutes): <30 Discharge Plan Discharge Items Patient Disposition: Home - Self-Care Reason For Visit: LEFT-SIDED FACIAL DROOP, LEFT SIDED WEAKNESS. Discharge Diagnosis: Complicated/hemiplegic migraine Activity: Resume your previous activity Non-emergency contact: Primary Care Provider and Neurologist Call non-emergency contact if: you have any medication questions, your symptoms worsen and your pain is worsening Follow-up/Referrals: PCP,NO [Primary Care Provider] - Diet: Regular Addtl Attending Provider Instructions: You were admitted to the hospital for stroke-like symptoms consistent with a complicated/hemiplegic migraine. You were treated with IV Tylenol, IV diphenhydramine, amlodipine, along with IV fluids and electrolyte repletion. A discharge summary will be sent to your primary care physician to ensure continuity of care. Please bring this discharge summary with you to your next office appointment so that your provider can review it at that time. Follow-up appointments: We have requested a follow-up appointment with your primary care physician within one week of discharge. Please call their office if you do not hear from them. Keep all your follow-up appointments as already scheduled. If you cannot make an appointment, notify your provider. Medications: Your medication list has been reviewed and reconciled upon discharge to ensure accuracy and continuity of care. An updated list of all your medications is included with your hospital discharge paperwork. Please review this list closely, and make note of any changes. We sent a new medication called aspirin to your pharmacy. Take aspirin, 81 mg/one tablet, daily, regularly. We sent a new medication called metoclopramide to your pharmacy. Take metoclopramide, 5 mg/one tablet, twice a day, for 14 days. Take your medications as instructed; do not skip a dose of your medicines. Make sure all of your doctors know every medicine you are taking (including xubq-igq-isndelc medicines, vitamins, and supplements). Call your primary care p rovider before taking any new medicines (including dfjb-jmk-lsjmeik medicines, vitamins, and supplements), because some of these may interact with your current medications, or may make your symptoms worse. Tell your primary care provider if you cannot afford your medications. CONTACT YOUR PRIMARY CARE PROVIDER if you experience any of the following: one-sided motor weakness, associated numbness/tingling of extremities headaches Difficulty following your treatment plan, or difficulty taking medications CALL 911 OR GO TO THE EMERGENCY DEPARTMENT if you experience any of the following: Sudden, severe abdominal pain or nausea/vomiting Severe chest pain, or chest pain that radiates (moves) to your jaw or arm Sudden, severe shortness of breath or difficulty breathing Thank you for allowing us to participate in your care. Pending Studies at Discharge: No Stand-Alone Forms: [facility], Smoking Cessation Medications and DC Order Prescriptions: New aspirin 81 mg tablet,delayed release (DR/EC) 81 mg PO DAILY Qty: 30 0RF metoclopramide HCl 5 mg tablet 5 mg PO BID Qty: 28 0RF Continued levothyroxine [Synthroid] 75 mcg tablet 75 mcg PO HS Qty: 90 3RF (DME) Accu-Chek Guide test strips Strip See Rx Instructions .Route Qty: 300 3RF Rx Instructions: test TID fluticasone propion-salmeterol [Advair Diskus] 250-50 mcg/dose blister with device 1 inh inhalation BID Qty: 60 2RF ipratropium-albuterol 0.5 mg-3 mg(2.5 mg base)/3 mL solution for nebulization 3 ml INH Q8H PRN (Reason: Wheezing) Qty: 180 3RF duloxetine 20 mg capsule,delayed release(DR/EC) 20 mg PO BID Qty: 60 2RF Hold Instructions: adverse reaction azelastine 137 mcg (0.1 %) aerosol,spray 2 spray intranasal DAILY PRN (Reason: Congestion) Qty: 30 2RF Rx Instructions: INSTILL 2 SPRAYS INTRANASALLY DAILY NEEDED FOR CONGESTION naproxen 500 mg tablet 500 mg PO DAILY PRN (Reason: DIRECTED) Qty: 30 2RF Rx Instructions: TAKE 1 TABLET BY MOUTH DAILY NEEDED FOR BEFORE ACTIVITY TO PREVENT HEADACHES atorvastatin 40 mg tablet 40 mg PO HS Qty: 30 3RF albuterol sulfate 90 mcg/actuation HFA aerosol inhaler 1 inh inhalation QID PRN (Reason: shortness of breath or wheezing) Qty: 8.5 0RF pregabalin 100 mg capsule 100 mg PO Q12H Qty: 60 5RF sumatriptan succinate 6 mg/0.5 mL pen injector 6 mg subcut .COMPLEX PRN (Reason: Migraine Headache) Qty: 1 3RF Rx Instructions: one injection at onset of migraine, may repeat in 2 hours if needed. limit 2- 3 days a week solifenacin [Vesicare] 5 mg tablet 5 mg PO DAILY Qty: 30 2RF estradiol 0.01 % (0.1 mg/gram) cream 1 g vaginal 2XWK Qty: 42.5 3RF Rx Instructions: Insert 1/4 applicatorful vaginally 2 time a week. Taken on Monday and Monday doxepin 50 mg capsule 50 mg PO HS Qty: 30 1RF diclofenac sodium 1 % gel 2 g topical QID PRN (Reason: Inflammation) Qty: 100 0RF cholestyramine (with sugar) 4 gram powder in packet 4 g PO BID PRN (Reason: NEEDED for diarrhea) Qty: 60 0RF Rx Instructions: administer w/meal; avoid other meds within 1hr before or 4-6hr after dose albuterol sulfate 2.5 mg /3 mL (0.083 %) solution for nebulization 2.5 mg inhalation Q4H PRN (Reason: shortness of breath or wheezing) Qty: 75 5RF pantoprazole [Protonix] 40 mg tablet,delayed release (DR/EC) 40 mg PO HS mirtazapine 45 mg tablet 45 mg PO QPM Qty: 90 3RF ondansetron HCl 4 mg tablet 4 mg PO Q8H PRN (Reason: nausea and vomiting) Qty: 90 0RF hydroxyzine HCl 50 mg tablet 50 - 100 mg PO HS PRN (Reason: Sleep) loperamide [Imodium A-D] 2 mg capsule 2 mg PO Q6H PRN (Reason: loose stool) Qty: 30 0RF epinephrine [EpiPen] 0.3 mg/0.3 mL auto-injector 0.3 mg IM DIRECTED PRN (Reason: Allergic Reaction) Qty: 1 3RF Rx Instructions: Hasn't had to use it yet. hydroxyzine HCl 10 mg tablet 10 mg PO BID PRN (Reason: Anxiety) dicyclomine 20 mg tablet 20 mg PO QID PRN (Reason: abdominal pain) Qty: 30 0RF promethazine-DM 6.25-15 mg/5 mL syrup 5 ml PO Q6H PRN (Reason: cough) Qty: 200 0RF fluconazole 150 mg tablet 150 mg PO Q3D Qty: 2 0RF cholecalciferol (vitamin D3) [Vitamin D3] 50 mcg (2,000 unit) capsule 100 mcg PO HS Medical Thc 1 dose inhalation DAILY PRN (Reason: Anxiety) acetaminophen [Acetaminophen Extra Strength] 500 mg tablet 1,000 mg PO Q6H PRN (Reason: Pain) lorazepam 1 mg tablet 1 mg PO BID PRN (Reason: Anxiety) topiramate 100 mg tablet 100 mg PO DAILY Saccharomyces boulardii [Florastor] 250 mg capsule 250 mg PO BID Qty: 20 0RF Rx Instructions: swallow whole lidocaine 5 % adhesive patch,medicated 1 patch TOP DAILY PRN (Reason: pain) Qty: 15 0RF Rx Instructions: leave on most painful area for 12 hrs albuterol sulfate 1.25 mg/3 mL solution for nebulization 1.25 mg inhalation Q4H PRN (Reason: bronchospasm) Qty: 75 0RF cyclobenzaprine 10 mg tablet 10 mg PO HS PRN (Reason: MUSCLE SPASMS) insulin aspart U-100 [Novolog U-100 Insulin aspart] 100 unit/mL solution 0 unit continuous subcutaneous infusion CONTINOUS Rx Instructions: up to 80 U daily via insulin pump subcutaneously daily; Discharge Orders: Discharge Order (Routine); Ordered 12/03/23 Ordered By: Ghanshyam Medrano/Other Patient Handouts: Aspirin Oral Tablet, Metoclopramide Oral Tablet Admission Data Admit Date/Time: 12/02/23 01:46 Attending Provider: Ja Lundberg Admit Provider: Bronwyn Ruiz Primary Care Provider: PCP,NO Other Providers: Lucas Sutherland Other Interventions: Discharge Summary Assessment (RN) Last Done: 12/03/23 12:37 Supervising Physician Co-Signing Physician Notes I personally examined the patient and verified all [place] points of history and exam, discussed case, and agree with decision making with Dr Rodriguez tried to see pt 3x today. sleeping the first two. had left by the time i attempted a third. in d/w dr rodriguez pt was feeling much better L sided deficits had resolved and she very much wanted to go home. vitals noted sleeping breathing was unlabored no accessory muscles good spontaneous effort no distress. no lateralizing/asymmetry at rest. skin without rashes/pallor/icterus. Left-sided neurologic deficits resolved. complicated migraine seems to be far and away the most likely. Given her uncontrolled diabetes, hypertension, hyperlipidemiait is hard to definitively rule out a slowly resolving TIA, but given the extent of her symptoms on presentation and her normal MRI, I strongly favor complicated migraine. safe/stable for home. with vascular risks - opted to add asa 81mg daily. 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 close PCP f/u. otherwise as above Resident Activity Tracking Resident Involvement: Resident Care Provided Care Provided: Adult Hospital Medicine
[2023-12-03 07:16] LABS: Mean Corpuscular Hemoglobin 28.7 pg (25.0-34.0); Mean Corpuscular Hgb Conc 34.1 g/dL (32.0-36.0); Mean Corpuscular Volume 84.2 fL (80.0-100.0); Mean Platelet Volume 9.6 fL (9.4-12.4); Platelet Count 226 K/uL (130-400); RDW Coefficient of Variation 13.2 % (11.5-14.5); RDW Standard Deviation 40.7 fL (36.4-46.3); Red Blood Count 4.87 M/uL (4.20-5.40); White Blood Count 7.23 K/ul (4.8-10.8)
[2023-12-03 08:00] LABS: BUN Creatinine Ratio 14.3 (10-20); Calcium 8.8 mg/dl (8.6-10.3); Creatinine Clr Calc Pharmacy 140.3 ml/min; Est GFR (Non-African American) 108.7 ml/min; Magnesium 1.8 mg/dl (1.7-2.4); Potassium 4.1 mmol/L (3.5-5.1)
[2023-12-03] MEDS: ASPIRIN 81 MG ECTAB PO SCH (08:17)
[2023-12-03] MEDS: ACETAMINOPHEN 1,000 MG/100 ML VIAL IV STA (11:02)
--- NOTE | 2023-12-03 13:47 | Billing Data ---
Date of Service December 03, 2023 Coding Level of Care Code 11099 IN/OBS DISCH 30 MIN/LESS
[2023-12-04 09:31] LABS: iSTAT Creatinine 0.5 mg/dl (0.6-1.3); iSTAT Hemoglobin 11.2 g/dl (12.0-16.0); iSTAT Ionized Calcium 1.14 mmol/l (1.12-1.32); iSTAT Potassium 3.5 mmol/L (3.3-5.0)
--- NOTE | 2023-12-04 14:41 | Electrocardiogram Report ---
Test Reason : Blood Pressure : / mmHG Vent. Rate : 061 BPM Atrial Rate : 061 BPM P-R Int : 160 ms QRS Dur : 092 ms QT Int : 432 ms P-R-T Axes : 039 -15 047 degrees QTc Int : 434 ms Normal sinus rhythm Normal ECG When compared with ECG of 10-NOV-2023 22:14, No significant change was found Confirmed by Kobe Park ([id number]) on 12/04/2023 2:41:01 PM Referred By: REFERRED SELF Confirmed By:Kobe Park
[2023-12-06 14:47] LABS: Marijuana Quant, GCMS Urine 1211 ng/mL (<5)
== END 2023-12-03 13:29 | disposition home or self-care (01) ==
LOC: 3W 22:19 → ED 22:19 → SUATTDRO 12-02 01:46 → 3W 12-02 02:40

== ENCOUNTER 2024-10-17 23:35 | Inpatient (IN) ==
--- OUTSIDE RECORDS SUMMARY | 2024-10-18 00:20 | External Medical Summary | Continuity of Care Document ---
Author Name Unknown Organization [id number] Address [address] [place] [address] [phone] Care Team Providers Care [employer] Name Role Phone Sonya Heard Primary Care Physician [phone] [id number] Date(s): 10/09/24 - 10/09/24 [facility] 0 [employer] [place] [id number] [address] [place] [id number] Encounter Diagnosis Right wrist pain(Discharge Diagnosis) - 10/09/24 Discharge Disposition: Home or Self Care Attending Physician: MD Mark, Robert A Allergies, Adverse Reactions, Alerts Substance Criticality Severity Reaction Reaction Severity Status morphine Active Adhesive bandage Act gerhard CeleXA Active Pollen itchy Active Tape Active Bee stings n/a Active Immunizations Given and Recorded Vaccine Date Status Refusal Reason zoster vaccine, inactivated 05/29/24 Recorded influenza virus vaccine, inactivated 05/29/24 Brennan rded influenza virus vaccine, inactivated 11/09/23 Give n influenza virus vaccine, inactivated 05/05/15 Brennan rded pneumococcal 23-valent vaccine 09/16/22 Recorded tetanus/diphtheria/pertuss, acel (Tdap) 03/01/22 R ecorded SARS-CoV-2 (COVID-19) mRNA BNT-162b2 vax 12/31/20 Recorded SARS-CoV-2 (COVID-19) mRNA BNT-162b2 vax 12/10/20 Recorded tetanus toxoids-diphtheria, Td (Adult) 09/04/08 Re corded tetanus toxoids-diphtheria, Td (Adult) 09/04/96 Re corded Medications albuterol 0.083% for nebulization Start: 07/19/24 2:37:00 PM EST, 3 mL, inhaled, q6h, Disp# 30 each, PRN: as needed for wheezing, Pharmacy: [facility]/pharmacy #[id number] Start Date: 07/19/24 Status: Ordered albuterol CFC free 90 mcg/inh MDI Start: 09/12/23 4:05:56 PM EST, 1 Unknown, Unknown, 0 Refill(s) Start Date: 09/12/23 Status: Ordered Aspir 81 oral delayed release tablet Start: 01/11/24 3:23:00 PM EDT, 1 tab, PO, Daily Start Date: 01/11/24 Status: Ordered atorvastatin 40 mg oral tablet Start: 03/02/23 9:29:00 AM EDT, 1 tab, PO, qhs Start Date: 03/02/23 Status: Ordered Breo Ellipta 200 mcg-25 mcg/inh inhalation powder Start: 09/03/24 12:19:00 PM EST, 1 puff, inhaled, Daily, Disp# 60 each, Refills: 0, Pharmacy: [id number] Start Date: 09/03/24 Status: Ordered Caplyta 42 mg oral capsule Start: 01/11/24 3:03:00 PM EDT, 1 cap, PO, qhs Start Date: 01/11/24 Status: Ordered cyclobenzaprine 10 mg oral tablet Start: 03/02/23 9:33:00 AM EDT, 1 tab, PO, qhs, PRN: spasms Start Date: 03/02/23 Status: Ordered dicyclomine 20 mg oral tablet Start: 12/11/23 7:46:00 AM EDT, 1 tab, PO, qid, Disp# 120 tab, Refills: 1, Pharmacy: [id number] Start Date: 12/11/23 Status: Ordered doxepin 50 mg oral capsule Start: 01/11/24 3:06:00 PM EDT, 1 cap, PO, qhs Start Date: 01/11/24 Status: Ordered DULoxetine 20 mg oral delayed release capsule Start: 03/02/23 9:26:00 AM EDT, 1 cap, PO, bid Start Date: 03/02/23 Status: Ordered EPINEPHrine 0.3 mg injectable kit Start: 01/04/24 10:22:00 AM EDT, 0.3 mg =, IM, ONCE, Disp# 1 kit, Refills: 1, , Pharmacy: [facility]/pharmacy #[id number] Start Date: 01/04/24 Status: Ordered estradiol 0.1 mg/g vaginal cream Start: 03/02/23 9:28:00 AM EDT, See Instructions, 1 g vaginal 2 x week Start Date: 03/02/23 Status: Ordered Florastor 250 mg oral capsule Start: 03/02/23 9:34:00 AM EDT, 1 cap, PO, bid Start Date: 03/02/23 Status: Ordered fluticasone 50 mcg/inh nasal spray Start: 04/29/14 10:35:00 AM EDT, 2 spray, each nostril, Daily Start Date: 04/29/14 Status: Ordered hydrocortisone 0.5% topical cream Start: 08/15/24 2:33:00 PM EST, 1 appl, topical, bid, Disp# 14 g, apply in a thin film to the affected skin and rub in gently and completely, Pharmacy: [facility]/pharmacy #[id number] Start Date: 08/15/24 Status: Ordered hydrOXYzine hydrochloride 10 mg oral tablet Start: 03/02/23 9:31:00 AM EDT, 1 tab, PO, Daily Start Date: 03/02/23 Status: Ordered Klayesta 100,000 units/g topical powder PLEASE APPLY TO AFFECTED REGIONS OF CANDIDAL SKIN INFECTION TWICE A DAY FOR 14 DAYS Start Date: 09/25/24 Status: Ordered levothyroxine 75 mcg (0.075 mg) oral tablet Start: 02/28/22 9:01:00 AM EDT, 1 tab, PO, Daily Start Date: 02/28/22 Status: Ordered LORazepam 1 mg oral tablet Start: 05/13/23 12:00:00 AM EDT, 1 tab, PO, bid, PRN: as needed for anxiety Start Date: 05/13/23 Status: Ordered meclizine 25 mg oral tablet Start: 03/02/23 9:32:00 AM EDT, 1 tab, PO, tid, PRN: as needed for dizziness Start Date: 03/02/23 Status: Ordered metoclopramide 5 mg oral tablet Start: 01/11/24 3:02:00 PM EDT, 1 tab, PO, bid Start Date: 01/11/24 Status: Ordered MiraLax oral powder for reconstitution Start: 03/02/23 9:29:00 AM EDT, 17 g =, PO, Daily, PRN: constipation Start Date: 03/02/23 Status: Ordered mirtazapine 45 mg oral tablet Start: 11/09/23 10:47:00 AM EST, 1 tab, PO, qhs Start Date: 11/09/23 Status: Ordered naproxen 500 mg oral tablet Start: 03/02/23 9:25:00 AM EDT, 1 tab, PO, Daily, PRN: headache Start Date: 03/02/23 Status: Ordered NovoLOG 100 units/mL injectable solution Start: 01/11/24 3:22:00 PM EDT Start Date: 01/11/24 Status: Ordered nystatin 100,000 units/g topical ointment PLEASE SEE ATTACHED FOR DETAILED DIRECTIONS Start Date: 05/30/22 Status: Ordered ondansetron 4 mg oral tablet Start: 08/10/23 1:07:42 PM EST, 4 Unknown, Unknown, 0 Refill(s) Start Date: 08/10/23 Status: Ordered pantoprazole Start: 09/26/19 10:31:00 AM EST, 40 mg =, PO, Daily Start Date: 09/26/19 Status: Ordered pregabalin 100 mg oral capsule Start: 03/02/23 9:31:00 AM EDT, 1 cap, PO, bid Start Date: 03/02/23 Status: Ordered Senokot S 50 mg-8.6 mg oral tablet Start: 03/02/23 9:32:00 AM EDT, See Instructions, 1-2 tabs po BID prn constipation Start Date: 03/02/23 Status: Ordered sucralfate 1 g oral tablet Start: 01/11/24 3:09:00 PM EDT, 1 tab, PO, bid Start Date: 01/11/24 Status: Ordered Ubrelvy 100 mg oral tablet Start: 01/11/24 3:21:00 PM EDT, 1 tablet at the start of a headache. may repeat dose in 2 hours if needed Start Date: 01/11/24 Status: Ordered VESIcare 5 mg oral tablet Start: 03/02/23 9:30:00 AM EDT, 1 tab, PO, Daily Start Date: 03/02/23 Status: Ordered Voltaren 1% topical gel Start: 01/04/24 10:22:00 AM EDT, 1 appl, topical, qid, Disp# 100 g, Refills: 5, not to exceed 8 grams/day/single joint of upper extremities not to exceed 32 grams/day, PRN: Pain, Pharmacy: [facility]/pharmacy#[id number] Start Date: 01/04/24 Stop Date: 07/02/24 Status: Ordered Problem List Condition Confirmation Course Effective Dates Status H ealth Status Informant Acid reflux Confirmed Active Anxiety Confirmed Active Weakness Confirmed Active Asthma Confirmed Active Back pain Confirmed Active Bipolar disorder Confirmed Active Celiac sprue Confirmed Active Chronic diarrhea Confirmed Active Depression Confirmed Active Dysphagia Confirmed Active SOB (shortness of breath) Confirmed Active 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 Left hand pain Confirmed Active Headache Confirmed Active Left hip pain Confirmed Active History of TIAs Confirmed Active Shoulder impingement Confirmed Active Irritable bowel syndrome with alternating bowel habits Confirmed Active Right knee pain Confirmed Active Left elbow pain Confirmed Active Low back pain Confirmed Active Lumbar radiculopathy Confirmed Active Migraine Confirmed Active Myofascial pain Confirmed Active Neck pain Confirmed Active Neuropathy Confirmed Active OM (otitis media) Confirmed Active Pain 1 Confirmed Active Right elbow pain Confirmed Active Right wrist pain Confirmed Active Protruded lumbar disc Confirmed Active Sciatica Confirmed Active Shoulder pain, bilateral Confirmed Active Rotator cuff tendinitis Confirmed Active Sinusitis Confirmed Active Sleep apnea Confirmed Active Snores Confirmed Active Spondylolysis Confirmed Active Rotator cuff tear Confirmed Active S/P orthopedic surgery, follow-up exam Confirmed Active Type 1 diabetes mellitus Confirmed Active Vitamin D deficiency Confirmed Active Whiplash injury to neck Confirmed Active 1low back and left hip Diagnosis Diagnosis Type Effective Dates Health Status Cl inical Service Informant Right wrist pain Discharge Diagnosis 10/09/24 Procedures Procedure Date Related Diagnosis Body Site Status CT of abdomen and pelvis 1 02/28/23 Completed Cdif Tox B Gene 2 02/25/22 Complet ed Laboratory findings data interpretation 3 02/25/[address] of abdomen and pelvis 4 02/24/22 Completed Gastric emptying study 5 12/29/21 Completed Colonoscopy 6 08/26/19 Completed Abscess 2009 Completed Bladder 7 2006 Completed Tubal ligation 2001 Completed Arthroscopy of shoulder 8 Completed Hysterectomy Completed Myringotomy Completed Tonsillectomy 9 Completed Tonsillectomy Completed Tubal ligation Completed 11) [...] for very slight delay in gastric emptying 6Impression: Internal hemorrhoids 7tack 8Right shoulder 9as a child Social History Social History Type Response Smoking Status Never smoked cigaret pio Sex Female Sex Representation Female (finding) Ortho Outpt Note * MD Mark, Robert A: MODIFY MD Mark, Robert A: MODIFY, MODIFY Event Display: Ortho Outpt Note Authored Date: [id number] Name:COURTNEY HELLER Patient Number:[id number] :1975 Date of Service:10/09/2024 CHIEF COMPLAINT: Left wrist f/u HPI: [id number] yearArt presents today forf/u left wrist. She states she still notes some swelling in her wrist and hand, but is not wearing the exosbrace at this time. Today she rates her pain as a 5/10. PHYSICAL EXAM: Focusing on the patient'sLeftupper extremity: 2+ radial pulse Sensation to light touch is intact distally Motor to the median, radial, ulnar, AIN, and PIN, as well as musculocutaneous nerves are intact + Tenderness to palpation over mid-central portion of her wist in the location of her capitate and hamate - Tenderness about the anatomic snuffbox or volarly about the scaphoid RADIOGRAPHY: I Independently interpreted an MRI of the left wrist from 09/19/2024 done at [facility] which showsnondisplaced healingcapitate fracture,edema in thebody of thehamate, and Mild second compartment tenosynovitis. IMPRESSION: 49 year old female withleft wrist nondisplaced capitate fracture and bone bruise of the hamate GOAL: Decrease pain PLAN: - Discussed working on increasing ROM as tolerated - Recommended using cock up wrist splint with activity, removing for ROM, icing, and hygienic purposes - Limited repetitive wrist motion - RICE. - They may use anti-inflammatories alternating with Tylenol as needed for pain. - Continue progressing to activities as tolerated. - Follow-up in8 weeksfor clinical reevaluation. The patient understood all my instructions and explanations; all their questions were satisfactorily addressed. ATTESTATION: I, Sophia Huang, scribing forand in the presence of, Robert Flores, on this date,10/09/2024 15:20:49. Electronic Signature on File CC: Cesar Means PA-C [address] [address] CC: Cesar Means PA-C [address] [address] CC: Raymundo Velasquez MD [address] [address] Electronically Reviewed/Signed by: Sophia Huang Author Signature Dt/Tm:10/09/2024 03:41 PM Electronically Reviewed/Signed by: Robert Flores MD Cosigner Signature Dt/Tm: 10/09/2024 05:29 PM [facility] Department of Orthopaedics and Rehabilitation [facility] [address], [place] [address] MR Patient Care team information Care Team Personnel Name: DO Heard Allison B Position: Physician - Family Med Member Role: Primary Care Provider Address: [address] [place] [id number] [place] Care Team Related Persons Name: NOREEN HELLER Name: MAXIMUS HELLER
[2024-10-18 00:55] LABS: Adenovirus PCR Not Detected (NotDetected); Bordetella parapertussis PCR Not Detected (NotDetected); Bordetella pertussis PCR Not Detected (NotDetected); Chlamydia pneumoniae PCR Not Detected (NotDetected); Coronavirus 229E PCR Not Detected (NotDetected); Coronavirus CoV-2 (COVID19)PCR Not Detected (NotDetected); Coronavirus HKU1 PCR Not Detected (NotDetected); Coronavirus NL63 PCR Not Detected (NotDetected); Coronavirus OC43PCR Not Detected (NotDetected); Human Metapneumovirus PCR Not Detected (NotDetected); Influenza A PCR Not Detected (NotDetected); Influenza B PCR Not Detected (NotDetected); Mycoplasma pneumoniae PCR Not Detected (NotDetected); Parainfluenza Virus 1 PCR Not Detected (NotDetected); Parainfluenza Virus 2 PCR Not Detected (NotDetected); Parainfluenza Virus 3 PCR Not Detected (NotDetected); Parainfluenza Virus 4 PCR Not Detected (NotDetected); Respiratory Syncytial VirusPCR Not Detected (NotDetected); Rhinovirus/Enterovirus PCR Not Detected (NotDetected)
[2024-10-18] MEDS: ALBUT/IPRATROP 3MG/0.5MG NEB 3 ML VIAL NEB STA (01:09)
--- NOTE | 2024-10-18 01:12 | Emergency Department Note ---
History of Present Illness General Chief complaint: Cough Stated complaint: COUGH,CURRAN,ABD PAIN,ABCESS IN PRIVATE AREA Time Seen by Provider: 10/18/24 00:43 History of Present Illness Maximum Pain Intensity: 6 This 49-year-old female that is well-known to this ER presents ER complaining of sore throat, difficulty swallowing, right-sided neck and chest pain for the past few weeks and went to [facility] was told that she had throat cancer. She states they did no imaging or biopsy. Patient also complains of a lump in her left groin area. Patient has fever, chills, abdominal pain, vomiting, diarrhea. Home Medications Medication Instructions Recorded Confirmed Type Medical Thc 1 dose inhalation DAILY PRN Anxiety 04/05/21 10/09/24 History hydroxyzine HCl 50 mg tablet 50 - 100 mg PO HS PRN Sleep 10/14/21 10/09/24 History loperamide 2 mg capsule (Imodium 2 mg PO Q6H PRN loose stool #30 11/04/21 10/09/24 Rx A-D) caps levothyroxine 75 mcg tablet 75 mcg PO HS #90 tabs 07/15/22 10/09/24 Rx (Synthroid) epinephrine 0.3 mg/0.3 mL 0.3 mg (0.3 mL) IM DIRECTED PRN 12/02/22 10/09/24 Rx injection, auto-injector (EpiPen) Allergic Reaction #1 ea acetaminophen 500 mg tablet 1,000 mg PO Q6H PRN Pain 03/17/23 10/09/24 History (Acetaminophen Extra Strength) cholecalciferol (vitamin D3) 50 100 mcg PO HS 03/17/23 10/09/24 History mcg (2,000 unit) capsule (Vitamin D3) cholestyramine (with sugar) 4 gram 4 g PO BID PRN NEEDED for 03/17/23 10/09/24 Rx powder for susp in a packet diarrhea #60 ea diclofenac sodium 1 % topical gel 2 g topical QID PRN Inflammation 03/17/23 10/09/24 Rx #100 grams doxepin 50 mg capsule 50 mg PO HS #30 caps 03/17/23 10/09/24 Rx estradiol 0.01% (0.1 mg/gram) 1 g vaginal 2XWK #42.5 grams 03/17/23 10/09/24 Rx vaginal cream hydroxyzine HCl 10 mg tablet 10 mg PO BID PRN Anxiety 03/17/23 10/09/24 History lidocaine 5 % topical patch 1 patch topical DAILY PRN pain #15 03/25/23 10/09/24 Rx ea fluticasone 250 mcg-salmeterol 50 1 inh inhalation BID #60 ea 03/28/23 10/09/24 Rx mcg/dose blistr powdr for inhalation (Advair Diskus) ipratropium 0.5 mg-albuterol 3 mg 3 ml inhalation Q8H PRN Wheezing 05/12/23 10/09/24 Rx (2.5 mg base)/3 mL nebulization #180 mL soln lorazepam 1 mg tablet 1 mg PO BID PRN Anxiety 05/13/23 10/09/24 History topiramate 100 mg tablet 100 mg PO HS 05/13/23 10/09/24 History pantoprazole 40 mg tablet,delayed 40 mg PO HS GERD 06/08/23 10/09/24 History release (Protonix) duloxetine 20 mg capsule,delayed 20 mg PO BID #60 caps 06/12/23 10/09/24 Rx release azelastine 137 mcg (0.1 %) nasal 2 spray intranasal DAILY PRN 07/05/23 10/09/24 Rx spray Congestion #30 mL naproxen 500 mg tablet 500 mg PO DAILY PRN DIRECTED 07/05/23 10/09/24 Rx #30 tabs ondansetron HCl 4 mg tablet 4 mg PO Q8H PRN nausea and 08/10/23 10/09/24 Rx vomiting #90 tabs albuterol sulfate 90 mcg/actuation 1 inh inhalation QID PRN shortness 09/12/23 10/09/24 Rx aerosol inhaler of breath or wheezing #8.5 grams albuterol sulfate 1.25 mg/3 mL 1.25 mg (3 mL) inhalation Q4H PRN 09/23/23 10/09/24 Rx solution for nebulization bronchospasm #75 mL fluconazole 150 mg tablet 150 mg PO Q3D 2 doses #2 tabs 10/05/23 10/09/24 Rx promethazine-DM 6.25 mg-15 mg/5 mL 5 ml PO Q6H PRN cough #200 mL 10/09/23 10/09/24 Rx oral syrup dicyclomine 20 mg tablet 20 mg PO QID PRN abdominal pain 10/26/23 10/09/24 Rx #30 tabs cyclobenzaprine 10 mg tablet 10 mg PO HS PRN MUSCLE SPASMS 12/01/23 10/09/24 History metoclopramide HCl 5 mg tablet 5 mg PO BID #28 tabs 12/03/23 10/09/24 Rx lumateperone 42 mg capsule 42 mg PO HS 12/16/23 10/09/24 History (Caplyta) mirtazapine 45 mg tablet 45 mg PO HS 12/30/23 10/09/24 History ubrogepant 100 mg tablet (Ubrelvy) 100 mg PO DIRECTED PRN MIGRAINE 12/30/23 10/09/24 History HEADACHES Saccharomyces boulardii 250 mg 500 mg PO HS 02/10/24 10/09/24 History capsule (Florastor) aspirin 81 mg tablet,delayed 81 mg PO HS 02/10/24 10/09/24 History release benzonatate 200 mg capsule 200 mg PO TID PRN cough #20 caps 02/10/24 10/09/24 Rx solifenacin 5 mg tablet (Vesicare) 5 mg PO HS 02/10/24 10/09/24 History dexamethasone 0.5 mg/5 mL oral 0.5 mg (5 mL) PO BID #240 mL 07/29/24 10/09/24 Rx solution blood-glucose sensor (Dexcom G7 10/09/24 10/09/24 History Sensor device) Novolog U-100 Insulin aspart 100 80 unit (0.8 mL) continuous 10/10/24 10/10/24 Rx unit/mL subcutaneous solution subcutaneous infusion DAILY 90 (insulin aspart U-100) days #80 mL atorvastatin 40 mg tablet 40 mg PO HS #90 tabs 10/10/24 10/10/24 Rx blood sugar diagnostic (Accu-Chek #300 ea 10/10/24 10/10/24 Rx Guide test strips) insulin regular hum U-500 conc 500 80 unit (0.16 mL) subcut QPM 90 10/10/24 10/10/24 Rx unit/mL(3 mL) subcut pen days #18 mL pen needle,diabetic dual safty 30 #100 ea 10/10/24 10/10/24 Rx gauge x 3/16" pregabalin 100 mg capsule 100 mg PO BID 30 days #60 caps 10/10/24 10/10/24 Rx lancets (Accu-Chek Softclix #100 ea 10/11/24 Rx Lancets) Allergies Allergy/AdvReac Type Severity Reaction Status Date / Time adhesive Allergy Intermediate skin Verified 10/09/24 15:56 redness, itchy bee venom protein (honey bee) Allergy Intermediate red Verified 10/09/24 15:56 welts/swelling > bruising citalopram AdvReac Intermediate jaw pain, Verified 10/09/24 15:56 headaches morphine AdvReac Intermediate localized Verified 10/09/24 15:56 reaction, redness/welts due to IV infiltration pollen extracts AdvReac Intermediate itchy Verified 10/09/24 15:56 eyes, scratchy throat, swollen eyes Past Med/Surg History Problem List (Updated 10/18/24 @ 04:51 by Nichole Ball PA-C) Mastoiditis (Acute) Tinnitus, right ear Chronic laryngitis Chronic rhinitis Right-sided sensorineural hearing loss Chronic otitis media of right ear with effusion Mixed conductive and sensorineural hearing loss of right ear with unrestricted hearing of left ear Granuloma and granuloma-like lesions of oral mucosa Diabetic peripheral neuropathy associated with type 2 diabetes mellitus Personal history of diabetic foot ulcer H/O TIA (transient ischemic attack) and stroke Maybe or complex migraine; does have lesions on MRI Class 3 obesity Vaginal erosion due to surgical mesh Bipolar disorder Gastro-esophageal reflux disease without esophagitis Obstructive sleep apnea Non-compliant with CPAP, could not tolerate Hypothyroidism Hyperlipidemia Asthma, moderate persistent (Acute) Chronic diarrhea Irritable bowel syndrome with diarrhea Hypertension (Acute) Lumbar radiculopathy Dysesthesia Migraines (Acute) Gastroparesis (Acute) Uncontrolled type 2 diabetes mellitus Celiac disease Diabetic autonomic neuropathy associated with type 2 diabetes mellitus Medical History (Updated 10/18/24 @ 04:51 by Nichole Ball PA-C) Eustachian tube dysfunction Mastoid disorder Dysphagia Endometriosis H/O concussion Incontinence Urinary urgency Hematuria Yeast dermatitis Degenerative joint disease of left hip Sensorineural hearing loss of both ears Kidney stones Post traumatic stress disorder Chronic sinusitis Diverticulosis (02/13/12) Fatty infiltration of liver Insomnia Internal hemorrhoids Sciatica Surgical History S/P tympanoplasty right ([address] Plata) S/P epidural steroid injection History of colonoscopy History of esophagogastroduodenoscopy (EGD) EGD (02/06/20): MAC at [facility] S/P laparoscopic assisted vaginal hysterectomy (LAVH) History of anesthesia reaction "Slow to wake" History of myringotomy bilateral tubes (multiple) Right myringotomy tube (04/09/18): [place]4 [place] [facility] [place] 118[place]) History of knee surgery Right History of arthroscopy of right shoulder History of tubal ligation History of bladder surgery suburethral sling with hysterectomy (2009) History of tooth extraction History of tonsillectomy History of cholecystectomy Family History Father Myocardial infarction Prostate cancer Diabetes Hypertension Biliary liver cirrhosis Mother , 2008 Myocardial infarction Dementia Diabetes Hypertension Other No significant family history Denies family history of Ovarian cancer Crohn's disease Breast cancer Lung cancer Colorectal cancer Ulcerative colitis Social History Smoking Status: Current some day smoker Tobacco Type: E-cigarettes / Vaping Second Hand Exposure: Yes; Do You Dip or Chew Tobacco: No; Hx Alcohol Use: Yes Alcohol type: hard liquor Alcohol Intake Frequency: Monthly or Less Hx Substance Use: Yes Prescribed Medications: Marijuana Last Used Substance Other:: Last night, stated uses about once a day. Substance Use Type Other:: Medical marijuana. 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 caffeine: Yes Dental Care, Regularly: Yes Physical Activity Frequency: Does not Exercise Seatbelt Use: always Sunscreen Use: Yes Assistive Devices: Cane, Glasses and Walker Review of Systems A total of 10 systems reviewed and were otherwise negative Physical Exam Vital Signs Vital Signs - 24 hr 10/17/24 23:36 10/18/24 01:20 10/18/24 01:20 Temperature 36.8 C Temperature Source Temporal Artery Scan Pulse Rate 79 Pulse Rate [Finger] 78 Pulse Rhythm Regular Pulse Rhythm [Finger] Regular Pulse Strength Normal Pulse Strength [Finger] Normal Respiratory Rate 18 20 Respiratory Effort / Characteristics Non-Labored Spontaneous Respiratory Depth Normal Normal Respiratory Pattern Regular Blood Pressure 135/65 Blood Pressure [Right Arm] 130/76 Blood Pressure Mean 88 Blood Pressure Mean [Right Arm] 94 Blood Pressure Position Sitting Blood Pressure Position [Right Arm] Pulse Oximetry 95 93 94 Oxygen Delivery Method Room Air Room Air Room Air Sepsis Recent Fever Within 48 Hours No Sepsis New/Unexplained Change in Mental Status N/A Sepsis Action Taken by Nursing No Action Required 10/18/24 01:25 10/18/24 05:00 Temperature Temperature Source Pulse Rate 76 Pulse Rate [Finger] 85 Pulse Rhythm Pulse Rhythm [Finger] Regular Pulse Strength Pulse Strength [Finger] Normal Respiratory Rate 20 Respiratory Effort / Characteristics Non-Labored Spontaneous Respiratory Depth Normal Respiratory Pattern Regular Blood Pressure Blood Pressure [Right Arm] 162/89 H Blood Pressure Mean Blood Pressure Mean [Right Arm] 113 Blood Pressure Position Blood Pressure Position [Right Arm] Lying Pulse Oximetry 96 Oxygen Delivery Method Room Air Sepsis Recent Fever Within 48 Hours Sepsis New/Unexplained Change in Mental Status Sepsis Action Taken by Nursing VITALS: Vitals are noted on the nurse's note and reviewed by myself. Vital signs stable. GENERAL: White female coughing speaking in full sentences, in no acute distress, nondiaphoretic, well-developed well-nourished. SKIN: Left proximal groin with small 1 cm abscess without surrounding erythema. The rest of the skin was without rashes, erythema, edema, or bruising. There is no tenting of the skin. Capillary reflex less than 2 seconds. HEAD: Normocephalic atraumatic. EARS: External auditory canals clear, Right ear with fluid present, left TM clear EYES: Pupils equal round and reactive to light and accommodation. Conjunctivae without injection, sclerae without icterus. Extraocular movements intact. NOSE: Patent, no discharge. MOUTH: Mucous membranes moist. Pharynx with erythema without exudate. Uvula midline. Airway patent. Tongue does not deviate. NECK: Supple without nuchal rigidity. No lymphadenopathy. No thyromegaly. Cervical spine is nontender. No JVD. HEART: Regular rate and rhythm LUNGS: Mild diffuse inspiratory and end expiratory wheezes. No retractions or accessory muscle use. ABDOMEN: Positive bowel sounds x 4. Normal tympanic percussion. Soft, nontender, without masses or organomegaly. Veronica sign negative. No guarding or rebound tenderness. No CVA tenderness MUSCULOSKELETAL: No muscle atrophy, erythema, or edema noted. NEURO: Patient was alert and oriented to person place and time. Normal sensation to light and sharp touch. No focal neurological deficits. Course Administered Medications Discontinued Medications Albuterol (Albut/Ipratrop 3mg/0.5mg Neb 3 Ml Vial) 3 ml NEB NOW STA; Protocol Stop: 10/18/24 00:53 Last Admin: 10/18/24 01:09 Dose: 3 ml Documented By: ENRRIQUE Doxycycline Hyclate (Doxycycline Home Pack 100 Mg) 1 each PO ONE ONE Stop: 10/18/24 00:53 Last Admin: 10/18/24 05:08 Dose: Not Given Documented By: ENRRIQUE Ampicillin Sodium/Sulbactam Sodium (Unasyn) 3,000 mg in 100 mls @ 200 mls/hr IV NOW STA Stop: 10/18/24 05:18 Last Admin: 10/18/24 05:28 Dose: 200 mls/hr Documented By: ENRRIQUE Ioversol (Optiray 320 125ml) 125 ml IV ONCE ONE Stop: 10/18/24 02:44 Last Admin: 10/18/24 02:44 Dose: 118 ml Documented By: LISA Methylprednisolone (Methylprednisolone 125 Mg/2 Ml Vial) 125 mg IV NOW STA Stop: 10/18/24 00:53 Last Admin: 10/18/24 01:25 Dose: 125 mg Documented By: ENRRIQUE Medical Decision Making Medical Records Attestation: I reviewed the patient's medical records. Home Medications Current Medication List: was personally reviewed by me Laboratory Data Attestation: I reviewed the patient's lab results. 10/18/24 01:28 10/18/24 01:28 Lab Results 10/17/24 10/18/24 10/18/24 Range/Units 23:42 01:20 01:28 WBC 8.18 (4.8-10.8) K/ul RBC 5.19 (4.20-5.40) M/uL Hgb 15.2 (12.0-16.0) g/dl Hct 43.2 (37.0-47.0) % MCV 83.2 (80.0-100.0) fL MCH 29.3 (25.0-34.0) pg MCHC 35.2 (32.0-36.0) g/dL RDW Std Deviation 37.5 (36.4-46.3) fL RDW Coeff of [place]on 12.4 (11.5-14.5) % Plt Count 245 (130-400) K/uL MPV 9.9 (9.4-12.4) fL Immature Gran % (Auto) 0.2 % Neut % (Auto) 67.3 % Lymph % (Auto) 25.6 % Borden % (Auto) 5.5 % Eos % (Auto) 1.2 % Baso % (Auto) 0.2 % Neut # (Auto) 5.50 (1.40-6.50) K/uL Lymph # (Auto) 2.09 (1.20-3.40) K/uL Borden # (Auto) 0.45 (0.11-0.59) K/uL Eos # (Auto) 0.10 (0.00-0.50) K/uL Baso # (Auto) 0.02 (0.00-0.20) K/uL Immature Gran # (Auto) 0.02 (0.01-0.20) K/uL Sodium 137 (136-145) mmol/L Potassium 4.2 (3.5-5.1) mmol/L Chloride 102 (98-107) mmol/L Carbon Dioxide 26 (21-32) mmol/L Anion Gap 9 (3-11) BUN 15 (6-23) mg/dl Creatinine 0.55 L (0.6-1.2) mg/dl Est Cr Clr Drug Dosing 131.7 ml/min eGFR 110.91 BUN/Creatinine Ratio 27.3 H (10-20) Glucose 294 H (70-99(Fasting)) mg/dl Calcium 9.0 (8.6-10.3) mg/dl Magnesium 1.6 L (1.7-2.4) mg/dl Total Bilirubin 0.6 (0.2-1.0) mg/dl AST 21 (13-39) U/L ALT 19 (7-52) U/L Alkaline Phosphatase 103 (34-104) U/L Troponin I High Sens 2.6 (0-14) pg/ml Total Protein 7.2 (6.0-8.3) gm/dl Albumin 3.8 (3.4-5.0) gm/dl Globulin 3.4 (2.5-4.0) gm/dl Albumin/Globulin Ratio 1.1 (0.9-2) HCG, Qual Negative (Negative) Adenovirus (PCR) Not Detected (NotDetected) B. pertussis DNA (PCR) Not Detected (NotDetected) B.parapertussis DNA PCR Not Detected (NotDetected) C. pneumoniae DNA (PCR) Not Detected (NotDetected) Coronavirus OC43 (PCR) Not Detected (NotDetected) Coronavirus HKU1 (PCR) Not Detected (NotDetected) Coronavirus 229E (PCR) Not Detected (NotDetected) SARS-CoV-2 (PCR) Not Detected (NotDetected) Coronavirus NL63 (PCR) Not Detected (NotDetected) Human Metapneumovir PCR Not Detected (NotDetected) Influenza Type A (PCR) Not Detected (NotDetected) Influenza Type B (PCR) Not Detected (NotDetected) M. pneumoniae (PCR) Not Detected (NotDetected) Parainfluenza 1 (PCR) Not Detected (NotDetected) Parainfluenza 2 (PCR) Not Detected (NotDetected) Parainfluenza 3 (PCR) Not Detected (NotDetected) Parainfluenza 4 (PCR) Not Detected (NotDetected) RSV (PCR) Not Detected (NotDetected) Entero/Rhino (PCR) Not Detected (NotDetected) Group A Strep (PCR) NOT DETECTED (NotDetected) Imaging Data Attestation: I personally reviewed and interpreted this imaging study as follows: Radiologist's Impression: Soft Tissue Neck CT 10/18/24 00:52 EXAM: CT soft tissue neck w con CLINICAL HISTORY: Sore throat, dysphagia TECHNIQUE: CT scan of the neck was performed without and with administration of intravenous contrast. Sagittal and coronal reconstructions were obtained. 118 ML OPTIRAY 320 was administered for post contrast images. One of the following dose reduction techniques were utilized for this exam: Automated exposure control, adjustment of the mA and/or kV according to patient size, and use of iterative reconstruction. COMPARISON: None. FINDINGS: Nasopharynx: Normal size and appearance. No masses or abnormal enhancement. Oropharynx: Normal size and appearance. No masses or abnormal enhancement. Larynx and Hypopharynx: Normal appearance of the laryngeal structures. Vocal cords are normal in appearance and movement. No masses or abnormal enhancement. Thyroid Gland: Mild enlarged right thyroid lobe with few bilateral nodules, Ultrasound correlation is needed. Salivary Glands: Parotid, submandibular, and sublingual glands are normal in size and appearance. No evidence of sialadenitis or masses. Lymph Nodes: Multiple small reactive-looking neck lymph nodes. Vascular Structures: The retropharyngeal course of the right cervical internal carotid artery. Mild right internal jugular vein phlebectasia. Normal enhancement of the carotid arteries, jugular veins, and other major vessels. No evidence of vascular malformations, aneurysms, or thrombosis. Soft Tissues: Normal appearance of the soft tissues of the neck. No abnormal masses, swelling, or fluid collections. Bones: Cervical spine degenerative changes with osteophytes. Bone defect noted in the right mastoid bone outline, with opacification of the right mastoid and middle ear, could be otomastoiditis, clinical correlation is needed. Airway: The trachea and main bronchi are patent. No evidence of tracheal or bronchial stenosis or masses. IMPRESSION: 1. Mild enlarged right thyroid lobe with few bilateral nodules, Ultrasound correlation is needed. 2. Multiple small reactive-looking neck lymph nodes. 3. Mild right internal jugular vein phlebectasia. 4. Bone defect noted in the right mastoid bone outline, with opacification of the right mastoid and middle ear, could be otomastoiditis, clinical correlation is needed. 5. The retropharyngeal course of the right cervical internal carotid artery. Electronically signed by Jorge A Gagnon 10-18-2024 04:22 AM Chest CTA 10/18/24 00:53 EXAM: CT angio chest PE protocol CLINICAL HISTORY: Dyspnea TECHNIQUE: Contiguous 3.[address] angiographic images of the chest were acquired with the administration of intravenous contrast. Coronal and sagittal reconstructions were obtained. 118 ML OPTIRAY 320 was administered for post-contrast images. One of these 3D techniques was utilized: Maximum Intensity Pixel (MIP), 3D Reconstructed Images, Volume Rendered Images, Surface Shaded Rendering. One of the following dose reduction techniques were utilized for this exam: Automated exposure control, adjustment of the mA and/or kV according to patient size, and use of iterative reconstruction. COMPARISON: 11/30/2020. FINDINGS: Aorta: The thoracic aorta is normal in caliber. No evidence of aneurysm, dissection, or significant atherosclerotic changes. Aortic arch and descending thoracic aorta are unremarkable. Pulmonary Arteries: Pulmonary arteries are normal in size and opacification. No evidence of pulmonary embolism. No stenosis or filling defects. Mediastinum: No mediastinal mass or lymphadenopathy. Normal appearance of the thymus. Heart: Normal size and morphology of the heart. No pericardial effusion. Lungs: Lungs are clear with no evidence of consolidation, nodules, or masses. Mild right pleural thickenings. No pleural effusion. Bones: No fractures or lytic/sclerotic lesions of the visualized bony structures. Normal alignment and bone density. Soft Tissues: Heterogonous thyroid gland, with possible nodules, Ultrasound is needed for correlation. IMPRESSION: No evidence of pulmonary embolism. No evidence of significant vascular abnormalities. Electronically signed by Jorge A Gagnon 10-18-2024 04:42 AM MDM Narrative Prior records/ancillary studies reviewed and summarized above. Nursing notes reviewed. Additional history obtained from nursing. The patient's history was concerning for sore throat, neck pain, ear pain, chest pain, dyspnea, left groin infection. Differential diagnosis: Etiologies such as metabolic, infection, hypo/hyperglycemia, electrolyte abnormalities, cardiac sources, intracerebral event, toxicologic, neurologic, as well as others were entertained. Physical examination: As above. ER treatment provided: IV Lock An order was placed for continuous cardiac monitoring. The monitor shows a rate of 60-100 with a sinus rhythm per my interpretation. Nebulizer, Solu-Medrol, Unasyn for mastoiditis On reassessment the patient felt better. Diagnostics interpretation by me: ECG: Ordered for chest pain EKG: Normal sinus, normal intervals, left anterior fascicular block, no acute ST-T wave changes. Impression normal sinus rhythm independent interpreted by myself The labs Independently Interpreted by myself revealed Low magnesium this was replaced, negative troponin, hyperglycemia without DKA Imaging studies: Imaging was reviewed and read by radiology Consultation: A consultation was placed with the hospitalist. The case was discussed and diagnostics were reviewed. The patient was evaluated in the ER for further treatment. Exam and history seem consistent with mastoiditis. Patient was symptomatic so did opt to treat her. She states this is a chronic issue but much worse today. She cannot get in with ENT. Medicine was consulted and the case was discussed. She will be evaluated for possible admission. By the evaluation outlined above emergent etiologies such as electrolyte abnormalities, cardiac sources, intracerebral event, toxologic, neurologic, abnormalities blood glucose, metabolic, as well as others were deemed relatively unlikely. The pt informed about the findings as listed above. All questions were answered and pleased with the treatment. The chart was completed utilizing [employer] Speech voice recognition software. Grammatical errors, random word insertions, pronoun errors, and incomplete sentences are an occassional consequence of this system due to software limitations, ambient noise, and hardware issues. Any formal questions or concerns about the content, text, or information contained within the body of this dictation should be directly addressed to the physician assistant tennis coach for clarification. Impression & Plan Mastoiditis Discharge Plan Visit Data Chief Complaint: Cough Stated Complaint: COUGH,CURRAN,ABD PAIN,ABCESS IN PRIVATE AREA ED Provider: Antonia Michelle ED Midlevel Provider: Nichole Ball Discharge Problem: Mastoiditis Patient Disposition: Admitted As Inpatient Condition: Good Forms Stand Alone Forms: My [employer] Prescriptions Prescriptions: No Action levothyroxine [Synthroid] 75 mcg tablet 75 mcg PO HS Qty: 90 3RF fluticasone propion-salmeterol [Advair Diskus] 250-50 mcg/dose blister with device 1 inh inhalation BID Qty: 60 2RF ipratropium-albuterol 0.5 mg-3 mg(2.5 mg base)/3 mL solution for nebulization 3 ml INH Q8H PRN (Reason: Wheezing) Qty: 180 3RF duloxetine 20 mg capsule,delayed release(DR/EC) 20 mg PO BID Qty: 60 2RF Hold Instructions: adverse reaction azelastine 137 mcg (0.1 %) aerosol,spray 2 spray intranasal DAILY PRN (Reason: Congestion) Qty: 30 2RF Rx Instructions: INSTILL 2 SPRAYS INTRANASALLY DAILY NEEDED FOR CONGESTION naproxen 500 mg tablet 500 mg PO DAILY PRN (Reason: DIRECTED) Qty: 30 2RF Rx Instructions: TAKE 1 TABLET BY MOUTH DAILY NEEDED FOR BEFORE ACTIVITY TO PREVENT HEADACHES albuterol sulfate 90 mcg/actuation HFA aerosol inhaler 1 inh inhalation QID PRN (Reason: shortness of breath or wheezing) Qty: 8.5 0RF (DME) lancets [Accu-Chek Softclix Lancets] Misc See Rx Instructions .Route Qty: 100 3RF Rx Instructions: use three per day to test blood sugar if Dexcom is not working or to calibrate Dexcom estradiol 0.01 % (0.1 mg/gram) cream 1 g vaginal 2XWK Qty: 42.5 3RF Rx Instructions: Insert / applicatorful vaginally 2 time a week. Taken on Monday and Monday doxepin 50 mg capsule 50 mg PO HS Qty: 30 1RF diclofenac sodium 1 % gel 2 g topical QID PRN (Reason: Inflammation) Qty: 100 0RF cholestyramine (with sugar) 4 gram powder in packet 4 g PO BID PRN (Reason: NEEDED for diarrhea) Qty: 60 0RF Rx Instructions: administer w/meal; avoid other meds within 1hr before or 4-6hr after dose pantoprazole [Protonix] 40 mg tablet,delayed release (DR/EC) 40 mg PO HS ondansetron HCl 4 mg tablet 4 mg PO Q8H PRN (Reason: nausea and vomiting) Qty: 90 0RF hydroxyzine HCl 50 mg tablet 50 - 100 mg PO HS PRN (Reason: Sleep) loperamide [Imodium A-D] 2 mg capsule 2 mg PO Q6H PRN (Reason: loose stool) Qty: 30 0RF epinephrine [EpiPen] 0.3 mg/0.3 mL auto-injector 0.3 mg IM DIRECTED PRN (Reason: Allergic Reaction) Qty: 1 3RF Rx Instructions: Hasn't had to use it yet. hydroxyzine HCl 10 mg tablet 10 mg PO BID PRN (Reason: Anxiety) dicyclomine 20 mg tablet 20 mg PO QID PRN (Reason: abdominal pain) Qty: 30 0RF promethazine-DM 6.25-15 mg/5 mL syrup 5 ml PO Q6H PRN (Reason: cough) Qty: 200 0RF (DME) Dexcom G7 Sensor Device See Rx Instructions .ROUTE Rx Instructions: change sensor every 10 days atorvastatin 40 mg tablet 40 mg PO HS Qty: 90 3RF (DME) Accu-Chek Guide test strips Strip See Rx Instructions .Route Qty: 300 3RF Rx Instructions: test TID insulin aspart U-100 [Novolog U-100 Insulin aspart] 100 unit/mL solution 80 unit continuous subcutaneous infusion DAILY 90 Days Qty: 80 3RF insulin regular hum U-500 conc 500 unit/mL (3 mL) insulin pen 80 unit subcut QPM 90 Days Qty: 18 3RF pregabalin 100 mg capsule 100 mg PO BID 30 Days Qty: 60 3RF (DME) BD AutoShield Duo Pen Needle 30 gauge x 3/16" needle See Rx Instructions .Route Qty: 100 3RF Rx Instructions: To use with 2-3x/daily insulin injections fluconazole 150 mg tablet 150 mg PO Q3D Qty: 2 0RF dexamethasone 0.5 mg/5 mL solution 0.5 mg PO BID Qty: 240 0RF Rx Instructions: swish and spit cholecalciferol (vitamin D3) [Vitamin D3] 50 mcg (2,000 unit) capsule 100 mcg PO HS Medical Thc 1 dose inhalation DAILY PRN (Reason: Anxiety) acetaminophen [Acetaminophen Extra Strength] 500 mg tablet 1,000 mg PO Q6H PRN (Reason: Pain) lorazepam 1 mg tablet 1 mg PO BID PRN (Reason: Anxiety) topiramate 100 mg tablet 100 mg PO HS lidocaine 5 % adhesive patch,medicated 1 patch TOP DAILY PRN (Reason: pain) Qty: 15 0RF Rx Instructions: leave on most painful area for 12 hrs albuterol sulfate 1.25 mg/3 mL solution for nebulization 1.25 mg inhalation Q4H PRN (Reason: bronchospasm) Qty: 75 0RF cyclobenzaprine 10 mg tablet 10 mg PO HS PRN (Reason: MUSCLE SPASMS) metoclopramide HCl 5 mg tablet 5 mg PO BID Qty: 28 0RF aspirin 81 mg tablet,delayed release (DR/EC) 81 mg PO HS Saccharomyces boulardii [Florastor] 250 mg capsule 500 mg PO HS Rx Instructions: swallow whole solifenacin [Vesicare] 5 mg tablet 5 mg PO HS benzonatate 200 mg capsule 200 mg PO TID PRN (Reason: cough) Qty: 20 0RF Caplyta 42 mg capsule 42 mg PO HS mirtazapine 45 mg tablet 45 mg PO HS Ubrelvy 100 mg tablet 100 mg PO DIRECTED PRN (Reason: MIGRAINE HEADACHES) Rx Instructions: 100 mg orally take one tablet at migraine onset; can repeat in 2 hours if needed Referrals Referrals: Sonya Heard DO [Primary Care Provider] - Discharge Problem: Mastoiditis Qualifiers: Laterality: right Qualified Code(s): H70.91 - Unspecified mastoiditis, right ear
[2024-10-18] MEDS: methylPREDNISolone 125 MG/2 ML VIAL IV STA (01:25)
[2024-10-18 01:52] LABS: Basophils # (auto) 0.02 K/uL (0.00-0.20); Basophils % (auto) 0.2 %; Eosinophils % (auto) 1.2 %; Hematocrit (blood only) 43.2 % (37.0-47.0); Hemoglobin 15.2 g/dl (12.0-16.0); Immature Granulocytes # (auto) 0.02 K/uL (0.01-0.20); Immature Granulocytes % (auto) 0.2 %; Lymphocytes # (auto) 2.09 K/uL (1.20-3.40); Lymphocytes % (auto) 25.6 %; Mean Corpuscular Hemoglobin 29.3 pg (25.0-34.0); Mean Corpuscular Hgb Conc 35.2 g/dL (32.0-36.0); Mean Corpuscular Volume 83.2 fL (80.0-100.0); Mean Platelet Volume 9.9 fL (9.4-12.4); Monocytes # (auto) 0.45 K/uL (0.11-0.59); Monocytes % (auto) 5.5 %; Neutrophils % (auto) 67.3 %; Platelet Count 245 K/uL (130-400); RDW Coefficient of Variation 12.4 % (11.5-14.5); RDW Standard Deviation 37.5 fL (36.4-46.3); Red Blood Count 5.19 M/uL (4.20-5.40); White Blood Count 8.18 K/ul (4.8-10.8)
[2024-10-18 02:08] LABS: Albumin Globulin Ratio 1.1 (0.9-2); Albumin Level 3.8 gm/dl (3.4-5.0); BUN Creatinine Ratio 27.3 (10-20); Bilirubin,Total 0.6 mg/dl (0.2-1.0); Creatinine Clr Calc Pharmacy 131.7 ml/min; Globulin 3.4 gm/dl (2.5-4.0); Magnesium 1.6 mg/dl (1.7-2.4); Potassium 4.2 mmol/L (3.5-5.1); Total Protein 7.2 gm/dl (6.0-8.3)
[2024-10-18 02:13] LABS: Troponin I High Sensitivity 2.6 pg/ml (0-14)
[2024-10-18 02:30] LABS: Pregnancy Test, Serum Negative (Negative)
[2024-10-18] MEDS: OPTIRAY 320 125ml IV ONE (02:44)
--- NOTE | 2024-10-18 04:22 | CT Scan Report ---
EXAM: CT soft tissue neck w con CLINICAL HISTORY: Sore throat, dysphagia TECHNIQUE: CT scan of the neck was performed without and with administration of intravenous contrast. Sagittal and coronal reconstructions were obtained. 118 ML OPTIRAY 320 was administered for post contrast images. One of the following dose reduction techniques were utilized for this exam: Automated exposure control, adjustment of the mA and/or kV according to patient size, and use of iterative reconstruction. COMPARISON: None. FINDINGS: Nasopharynx: Normal size and appearance. No masses or abnormal enhancement. Oropharynx: Normal size and appearance. No masses or abnormal enhancement. Larynx and Hypopharynx: Normal appearance of the laryngeal structures. Vocal cords are normal in appearance and movement. No masses or abnormal enhancement. Thyroid Gland: Mild enlarged right thyroid lobe with few bilateral nodules, Ultrasound correlation is needed. Salivary Glands: Parotid, submandibular, and sublingual glands are normal in size and appearance. No evidence of sialadenitis or masses. Lymph Nodes: Multiple small reactive-looking neck lymph nodes. Vascular Structures: The retropharyngeal course of the right cervical internal carotid artery. Mild right internal jugular vein phlebectasia. Normal enhancement of the carotid arteries, jugular veins, and other major vessels. No evidence of vascular malformations, aneurysms, or thrombosis. Soft Tissues: Normal appearance of the soft tissues of the neck. No abnormal masses, swelling, or fluid collections. Bones: Cervical spine degenerative changes with osteophytes. Bone defect noted in the right mastoid bone outline, with opacification of the right mastoid and middle ear, could be otomastoiditis, clinical correlation is needed. Airway: The trachea and main bronchi are patent. No evidence of tracheal or bronchial stenosis or masses. IMPRESSION: 1. Mild enlarged right thyroid lobe with few bilateral nodules, Ultrasound correlation is needed. 2. Multiple small reactive-looking neck lymph nodes. 3. Mild right internal jugular vein phlebectasia. 4. Bone defect noted in the right mastoid bone outline, with opacification of the right mastoid and middle ear, could be otomastoiditis, clinical correlation is needed. 5. The retropharyngeal course of the right cervical internal carotid artery. Electronically signed by Jorge A Gagnon 10-18-2024 04:22 AM
--- NOTE | 2024-10-18 04:42 | CT Scan Report ---
EXAM: CT angio chest PE protocol CLINICAL HISTORY: Dyspnea TECHNIQUE: Contiguous 3.[address] angiographic images of the chest were acquired with the administration of intravenous contrast. Coronal and sagittal reconstructions were obtained. 118 ML OPTIRAY 320 was administered for post-contrast images. One of these 3D techniques was utilized: Maximum Intensity Pixel (MIP), 3D Reconstructed Images, Volume Rendered Images, Surface Shaded Rendering. One of the following dose reduction techniques were utilized for this exam: Automated exposure control, adjustment of the mA and/or kV according to patient size, and use of iterative reconstruction. COMPARISON: 11/30/2020. FINDINGS: Aorta: The thoracic aorta is normal in caliber. No evidence of aneurysm, dissection, or significant atherosclerotic changes. Aortic arch and descending thoracic aorta are unremarkable. Pulmonary Arteries: Pulmonary arteries are normal in size and opacification. No evidence of pulmonary embolism. No stenosis or filling defects. Mediastinum: No mediastinal mass or lymphadenopathy. Normal appearance of the thymus. Heart: Normal size and morphology of the heart. No pericardial effusion. Lungs: Lungs are clear with no evidence of consolidation, nodules, or masses. Mild right pleural thickenings. No pleural effusion. Bones: No fractures or lytic/sclerotic lesions of the visualized bony structures. Normal alignment and bone density. Soft Tissues: Heterogonous thyroid gland, with possible nodules, Ultrasound is needed for correlation. IMPRESSION: No evidence of pulmonary embolism. No evidence of significant vascular abnormalities. Electronically signed by Jorge A Gagnon 10-18-2024 04:42 AM
--- NOTE | 2024-10-18 04:51 | Emergency Department Note ---
ED Visit Note I was consulted by the Advanced Practice Provider. I personally made/approved the management plan and take responsibility for the patient management. I performed a substantive portion of the visit. This includes the aspects of: -I independently evaluated the patient -MDM the patient will be admitted on IV antibiotics for mastoiditis. .
[2024-10-18] MEDS: DOXYCYCLINE HOME PACK 100 MG PO ONE (05:08)
[2024-10-18] MEDS: AMPICILLIN/SULBACTAM SOD 3,000 MG/100 ML BAG IV STA (05:28)
[2024-10-18] MEDS ORDERED: ALBUT/IPRATROP 3MG/0.5MG NEB 3 ML VIAL NEB PRN (05:40)
--- NOTE | 2024-10-18 05:40 | History & Physical Report ---
Date of Service October 18, 2024 Assessment & Plan (1) Mastoiditis: (2) Hypomagnesemia: (3) Hyperglycemia due to type 2 diabetes mellitus: (4) Cough: (5) Groin abscess: (6) Vomiting and diarrhea: (7) Thyroid nodule: Plan Patient is a 49-year-old female with past medical history of type II DM insulin- dependent, hyperlipidemia, IBS, asthma, migraines, depression, gastroparesis, Tyler's thyroiditis, chronic otitis media of right ear with effusion, right sided sensorineural hearing loss, chronic laryngitis, chronic tinnitus of right ear. Patient is being admitted for IV antibiotics due to otomastoiditis of right ear. She also was found to have a magnesium of 1.6. #otomastoiditis Soft tissue neck CT showed bone defect noted in right mastoid bone outline with opacification, could be otomastoiditis Patient with tenderness of mastoid process Patient reports fevers at home, afebrile in ED No leukocytosis, VSS Continue Unasyn Tylenol as needed #Hypomagnesemia Mg 1.6 on admission K+ stable 2/2 vomiting and diarrhea 2G IV Mg ordered Trend BMP and Mg #Hyperglycemia secondary to type II DM Patient reports she lost her insulin pump Most recent A1c 12.4 10/09/2024 Noted that patient uses 40 units twice daily through insulin pump during recent diabetes visit glucose 294 on admission, noted to be in upper 300s/400s during recent labs Lantus 10 units twice daily Sliding scale ordered pharmacy glycemic consult Anticipate hyperglycemia with IV steroids in ED patient reports frequent yeast infections when requires antibiotics, uncontrolled diabetes will contribute, monitor for yeast infection with IV antibiotics #Cough/chest pain Patient reports chronic cough acutely worsened x 3 days along with chest heaviness BioFire negative Troponin 2.6, EKG NSR, no ischemic changes Chest CTA negative given IV Solu-Medrol 125 Mg in ED; defer further steroid use DuoNeb every 2 hours as needed Tessalon Perles as needed Tylenol as needed MRSA swab ordered #groin abscess Patient reports left-sided groin abscess for 5 days Unable to assess on admission given patient still fully dressed Patient reports no drainage or IV drug use Coverage with Unasyn for mastoiditis as above will add MRSA coverage with vancomycin given frequent ER/hospital visits - pharmacy consulted #vomiting and diarrhea Patient reports intermittent vomiting and diarrhea x 3 days Does endorse chronic alternating constipation and diarrhea with IBS BioFire negative denies ABD pain Vomiting differential includes but not limited to vestibular cause with mastoiditis, cannabis hyperemesis syndrome, gastritis Zofran as needed slightly dry on admission - BUN/creatinine 27.3 - gentle IVF resuscitation with NSS at 80 mL/hour x 500 mL #thyroid nodule Incidental finding on soft tissue neck CT CT showed mild enlarged right thyroid lobe with few bilateral nodules, ultrasound correlation is needed TSH 10/09/2024 WNL Recommend ultrasound in outpatient setting with PCP Recent diabetes ED's visit notes patient unsure if she has been taking her levothyroxine, most recently prescribed 2021, hold at this time Chronic stable diagnoses: HLDcontinue ASA and atorvastatin AsthmaDuoNeb as above, continue daily inhaler Depression/anxiety continue duloxetine, hydroxyzine, lorazepam, mirtazapine migrainescontinue topiramate GERDcontinue Protonix VTE ppx: SCDs, low risk and able to ambulate Diet: T2DM Dispo: [facility], [facility] Admission and Anticipated Discharge Date Admission Date: 10/18/24 History of Present Illness Chief Complaint: cough Primary Care Provider: Sonya Heard DO Patient is a 49-year-old female with past medical history of type II DM insulin- dependent, hyperlipidemia, IBS, asthma, migraines, depression, gastroparesis, Tyler's thyroiditis, chronic otitis media of right ear with effusion, right sided sensorineural hearing loss, chronic laryngitis, chronic tinnitus of right ear. Patient is being admitted for IV antibiotics due to otomastoiditis of right ear. She also was found to have a magnesium of 1.6. Patient seen at bedside. She stated that 2 days ago she developed a cough, nausea, vomiting, diarrhea, upset stomach, fever, and chest pain that extends into her neck and right ear. She feels as though there is a cinderblock sitting on her chest. She stated she has chronic right ear problems and follows with ENT, Dr. Colon. She is to have a surgery to drain the fluid from her in her ear in December. She has chronic mastoiditis requiring antibiotics but denies previous admissions for IV antibiotics. She endorses tinnitus and hearing loss, however noted from recent ENT visit that this is chronic. She stated her fever has been waxing and waning, as high as 101 at home. She has been taking Tylenol. The nausea, vomiting, and diarrhea has been waxing and waning as well. She has been able to tolerate p.o. intake but feels dehydrated. She also stated she has alternating IBS and chronically has diarrhea. She denies hematochezia. She stated 4 to 5 days ago she also developed an abscess of her groin that she tried to pop, but it only bled. It has had no drainage. Patient also stated that she feels she is getting a yeast infection as she chronically gets these when requiring antibiotics with her diabetes history. Patient does endorse nicotine use, she vapes, denies need for nicotine patch. She denies chronic alcohol use. She does use THC as she has her medical marijuana card. She smokes every day For pain. Patient's in 2022. She did not take her evening medications last night and still needs her morning medications. She stated she has an insulin pump for diabetes control however has not used it in several days and has been dosing herself. Her most recent A1c was 12.4 in early October. She wishes to be full code at this time. Allergies Allergy/AdvReac Type Severity Reaction Status Date / Time adhesive Allergy Intermediate skin Verified 10/09/24 15:56 redness, itchy bee venom protein (honey bee) Allergy Intermediate red Verified 10/09/24 15:56 welts/swelling > bruising citalopram AdvReac Intermediate jaw pain, Verified 10/09/24 15:56 headaches morphine AdvReac Intermediate localized Verified 10/09/24 15:56 reaction, redness/welts due to IV infiltration pollen extracts AdvReac Intermediate itchy Verified 10/09/24 15:56 eyes, scratchy throat, swollen eyes Home Medications Medication Instructions Recorded Confirmed Type Medical Thc 1 dose inhalation DAILY PRN Anxiety 04/05/21 10/18/24 History hydroxyzine HCl 50 mg tablet 50 - 100 mg PO HS PRN Sleep 10/14/21 10/18/24 History loperamide 2 mg capsule (Imodium 2 mg PO Q6H PRN loose stool #30 11/04/21 10/18/24 Rx A-D) caps levothyroxine 75 mcg tablet 75 mcg PO HS #90 tabs 07/15/22 10/18/24 Rx (Synthroid) epinephrine 0.3 mg/0.3 mL 0.3 mg (0.3 mL) IM DIRECTED PRN 12/02/22 10/18/24 Rx injection, auto-injector (EpiPen) Allergic Reaction #1 ea acetaminophen 500 mg tablet 1,000 mg PO Q6H PRN Pain 03/17/23 10/18/24 History (Acetaminophen Extra Strength) cholecalciferol (vitamin D3) 50 100 mcg PO HS 03/17/23 10/18/24 History mcg (2,000 unit) capsule (Vitamin D3) cholestyramine (with sugar) 4 gram 4 g PO BID PRN NEEDED for 03/17/23 10/18/24 Rx powder for susp in a packet diarrhea #60 ea diclofenac sodium 1 % topical gel 2 g topical QID PRN Inflammation 03/17/23 10/18/24 Rx #100 grams doxepin 50 mg capsule 50 mg PO HS #30 caps 03/17/23 10/18/24 Rx estradiol 0.01% (0.1 mg/gram) 1 g vaginal 2XWK #42.5 grams 03/17/23 10/18/24 Rx vaginal cream hydroxyzine HCl 10 mg tablet 10 mg PO BID PRN Anxiety 03/17/23 10/18/24 History lidocaine 5 % topical patch 1 patch topical DAILY PRN pain #15 03/25/23 10/18/24 Rx ea fluticasone 250 mcg-salmeterol 50 1 inh inhalation BID #60 ea 03/28/23 10/18/24 Rx mcg/dose blistr powdr for inhalation (Advair Diskus) ipratropium 0.5 mg-albuterol 3 mg 3 ml inhalation Q8H PRN Wheezing 05/12/23 10/18/24 Rx (2.5 mg base)/3 mL nebulization #180 mL soln lorazepam 1 mg tablet 1 mg PO UD PRN Anxiety 05/13/23 10/18/24 History topiramate 100 mg tablet 100 mg PO UD 05/13/23 10/18/24 History pantoprazole 40 mg tablet,delayed 40 mg PO HS GERD 06/08/23 10/18/24 History release (Protonix) duloxetine 20 mg capsule,delayed 20 mg PO BID #60 caps 06/12/23 10/18/24 Rx release azelastine 137 mcg (0.1 %) nasal 2 spray intranasal DAILY PRN 07/05/23 10/18/24 Rx spray Congestion #30 mL naproxen 500 mg tablet 500 mg PO DAILY PRN DIRECTED 07/05/23 10/18/24 Rx #30 tabs ondansetron HCl 4 mg tablet 4 mg PO Q8H PRN nausea and 08/10/23 10/18/24 Rx vomiting #90 tabs albuterol sulfate 90 mcg/actuation 1 inh inhalation QID PRN shortness 09/12/23 10/18/24 Rx aerosol inhaler of breath or wheezing #8.5 grams albuterol sulfate 1.25 mg/3 mL 1.25 mg (3 mL) inhalation Q4H PRN 09/23/23 10/18/24 Rx solution for nebulization bronchospasm #75 mL promethazine-DM 6.25 mg-15 mg/5 mL 5 ml PO Q6H PRN cough #200 mL 10/09/23 10/18/24 Rx oral syrup dicyclomine 20 mg tablet 20 mg PO QID PRN abdominal pain 10/26/23 10/18/24 Rx #30 tabs cyclobenzaprine 10 mg tablet 10 mg PO UD PRN MUSCLE SPASMS 12/01/23 10/18/24 History metoclopramide HCl 5 mg tablet 5 mg PO BID #28 tabs 12/03/23 10/18/24 Rx lumateperone 42 mg capsule 42 mg PO HS 12/16/23 10/18/24 History (Caplyta) ubrogepant 100 mg tablet (Ubrelvy) 100 mg PO DIRECTED PRN MIGRAINE 12/30/23 10/18/24 History HEADACHES Saccharomyces boulardii 250 mg 500 mg PO HS 02/10/24 10/18/24 History capsule (Florastor) aspirin 81 mg tablet,delayed 81 mg PO HS 02/10/24 10/18/24 History release benzonatate 200 mg capsule 200 mg PO TID PRN cough #20 caps 02/10/24 10/18/24 Rx solifenacin 5 mg tablet (Vesicare) 5 mg PO UD 02/10/24 10/18/24 History dexamethasone 0.5 mg/5 mL oral 0.5 mg (5 mL) PO BID #240 mL 07/29/24 10/18/24 Rx solution blood-glucose sensor (Dexcom G7 10/09/24 10/09/24 History Sensor device) Novolog U-100 Insulin aspart 100 80 unit (0.8 mL) continuous 10/10/24 10/18/24 Rx unit/mL subcutaneous solution subcutaneous infusion DAILY 90 (insulin aspart U-100) days #80 mL atorvastatin 40 mg tablet 40 mg PO HS #90 tabs 10/10/24 10/18/24 Rx blood sugar diagnostic (Accu-Chek #300 ea 10/10/24 10/10/24 Rx Guide test strips) insulin regular hum U-500 conc 500 80 unit (0.16 mL) subcut QPM 90 10/10/24 10/18/24 Rx unit/mL(3 mL) subcut pen days #18 mL pen needle,diabetic dual safty 30 #100 ea 10/10/24 10/10/24 Rx gauge x 3/16" pregabalin 100 mg capsule 100 mg PO BID 30 days #60 caps 10/10/24 10/18/24 Rx lancets (Accu-Chek Softclix #100 ea 10/11/24 Rx Lancets) fluconazole 150 mg tablet 150 mg PO UD 10/18/24 10/18/24 History mirtazapine 30 mg tablet 30 mg PO HS 10/18/24 10/18/24 History Past Med/Surg History Problem List (Updated 10/19/24 @ 00:06 by Background Joni) Groin abscess Cough Thyroid nodule Hyperglycemia due to type 2 diabetes mellitus Vomiting and diarrhea Hypomagnesemia Mastoiditis (Acute) Tinnitus, right ear Chronic laryngitis Chronic rhinitis Right-sided sensorineural hearing loss Chronic otitis media of right ear with effusion Mixed conductive and sensorineural hearing loss of right ear with unrestricted hearing of left ear Granuloma and granuloma-like lesions of oral mucosa Diabetic peripheral neuropathy associated with type 2 diabetes mellitus Personal history of diabetic foot ulcer H/O TIA (transient ischemic attack) and stroke Maybe or complex migraine; does have lesions on MRI Class 3 obesity Vaginal erosion due to surgical mesh Bipolar disorder Gastro-esophageal reflux disease without esophagitis Obstructive sleep apnea Non-compliant with CPAP, could not tolerate Hypothyroidism Hyperlipidemia Asthma, moderate persistent (Acute) Chronic diarrhea Irritable bowel syndrome with diarrhea Hypertension (Acute) Lumbar radiculopathy Dysesthesia Migraines (Acute) Gastroparesis (Acute) Uncontrolled type 2 diabetes mellitus Celiac disease Diabetic autonomic neuropathy associated with type 2 diabetes mellitus Medical History (Updated 10/19/24 @ 00:06 by Narcisa Quinones) Eustachian tube dysfunction Mastoid disorder Dysphagia Endometriosis H/O concussion Incontinence Urinary urgency Hematuria Yeast dermatitis Degenerative joint disease of left hip Sensorineural hearing loss of both ears Kidney stones Post traumatic stress disorder Chronic sinusitis Diverticulosis (02/13/12) Fatty infiltration of liver Insomnia Internal hemorrhoids Sciatica Surgical History S/P tympanoplasty right ([address] Plata) S/P epidural steroid injection History of colonoscopy History of esophagogastroduodenoscopy (EGD) EGD (02/06/20): MAC at [facility] S/P laparoscopic assisted vaginal hysterectomy (LAVH) History of anesthesia reaction "Slow to wake" History of myringotomy bilateral tubes (multiple) Right myringotomy tube (04/09/18): LMA#4 at [facility] (weight at time was 118kg) History of knee surgery Right History of arthroscopy of right shoulder History of tubal ligation History of bladder surgery suburethral sling with hysterectomy (2009) History of tooth extraction History of tonsillectomy History of cholecystectomy Family History Father Myocardial infarction Prostate cancer Diabetes Hypertension Biliary liver cirrhosis Mother , 2008 Myocardial infarction Dementia Diabetes Hypertension Other No significant family history Denies family history of Ovarian cancer Crohn's disease Breast cancer Lung cancer Colorectal cancer Ulcerative colitis Social History Smoking Status: Never smoker Tobacco Type: E-cigarettes / Vaping Second Hand Exposure: No; Do You Dip or Chew Tobacco: No; Tobacco Cessation Education Requested by Patient: No Hx Alcohol Use: Yes Alcohol type: hard liquor Alcohol Intake Frequency: Monthly or Less Hx Substance Use: Yes Prescribed Medications: Marijuana Last Used Substance Other:: Last night, stated uses about once a day. Substance Use Type Other:: Medical marijuana. 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 caffeine: Yes Dental Care, Regularly: Yes Physical Activity Frequency: Does not Exercise Seatbelt Use: always Sunscreen Use: Yes Assistive Devices: Cane, Glasses and Walker Review of Systems Review of Systems: see hpi Physical Exam Physical Exam: The patient is awake, alert and oriented 3, well developed and well nourished, normocephalic and atraumatic, in no acute distress. Non-toxic appearing. HEENT- EOMI, mucous membranes dry. Hearing grossly intact. Heart-normal S1 and S2. No murmurs, rubs or gallops. Lungs-clear bilaterally, no respiratory distress, no accessory muscle use. Abdomen-normal bowel sounds and soft. No ascites noted. Non-tender. Extremities- no clubbing, cyanosis, or edema. Rheumatologic-normal range of motion. Psychiatric-normal affect. ENMT: right mastoid tender to palpation Results & Data Results & Data Vital Signs (Past 12 Hours) Vital Signs Temp Pulse Pulse Resp BP BP Pulse Ox 10/18/24 05:00 85 20 162/89 H 96 10/18/24 01:25 76 10/18/24 01:20 94 10/18/24 01:20 78 20 130/76 93 10/17/24 23:36 36.8 C 79 18 135/65 95 O2 Del Method 10/18/24 05:00 Room Air 10/18/24 01:25 10/18/24 01:20 Room Air 10/18/24 01:20 Room Air 10/17/24 23:36 Room Air Laboratory Results Reviewed CBC, CMP, hCG, BioFire Diagnostic Findings reviewed chest CTA and soft tissue neck CT Medications Administered ED2G IV mag, DuoNeb x 1, Solu-Medrol 125 IV, Unasyn 3G IV ECG Additional Comments: NSR Code Status & VTE Plan Code Status full code VTE Prophylaxis Plan VTE Prophylaxis will be ordered: Yes Supervising Physician Co-Signing Physician Notes Attending addendum: I have physically seen this patient, have supervised the BREANN's activities, and agree with the H&P unless as otherwise noted. Assessment and Plan: The patient is a 49-year-old female with past medical history including diabetes mellitus type 2 insulin requiring, hyperlipidemia, IBS, asthma, migraines, depression, gastroparesis, Ytler's thyroiditis, chronic otitis media right ear with effusion, right sided sensorineural hearing loss, chronic laryngitis, and chronic tinnitus of right ear. She presents to the emergency department with complaint of cough, headache, abdominal pain and mild imbalance. #Right otomastoiditis- As noted on soft tissue CT neck Patient with subjective tenderness over mastoid process Noted to have fevers at home, but afebrile in the emergency department Continue Zosyn 3 g IV every 6 hours begun in the ED Acetaminophen 600 mg by mouth every 6 hours as needed for mild pain or fever #HYpomagnesemia magnesium 1.6 on admission Received 2 g magnesium sulfate IV, recheck laboratories in the a.m. #Hyperglycemia associated diabetes mellitus type 2- Patient reports having lost her insulin pump. Most recent A1c 12.4 10/09/2024 Placed on Lantus as noted, pharmacy glycemic consult as noted Patient will need to have community mental health social worker help address issues related to supply of outpatient medications #Cough/chest pain- Chronic cough associated with likely viral process even though BioFire testing negative CTA chest negative for PE Assessment Cymetra 5.5 mg IV, would not dose any steroids further DuoNebs every 2 hours as needed Tessalon Perles 100 mg p.o. 3 times daily as needed MRSA swab ordered Further orders and medications as noted PG Care Time/CCT Total # of Minutes Spent Total Time Spent with Patient: Total time spent is greater than 50% in coordination of care (as documented) at patient's floor/unit and/or counseling patient: Coding Level of Care Code 42665 INT INP/OBS CARE MIN Diagnoses Mastoiditis H70.91 Laterality: right Hypomagnesemia E83.42 Hyperglycemia due to type 2 diabetes mellitus E11.65 Cough R05.9 Groin abscess L02.214 Vomiting and diarrhea R11.10; R19.7 Thyroid nodule E04.1 (1) Mastoiditis Laterality: right Qualified Code(s): H70.91 - Unspecified mastoiditis, right ear
[2024-10-18] MEDS: SODIUM CHLORIDE 0.9% 500 ML IV SCH (06:05)
[2024-10-18] MEDS: MAGNESIUM SULFATE / D5W 1 GM/100 ML BAG IV SCH (06:05)
[2024-10-18] MEDS ORDERED: VANCOMYCIN CONSULT ACTIVE PRN ×2 (06:05→08:36)
[2024-10-18] MEDS: ACETAMINOPHEN 325 MG TAB PO STA (07:35)
[2024-10-18] MEDS: VANCOMYCIN HCL 2,000 MG in SODIUM CHLORIDE 0.9% 500 ML IV ONE (07:49)
[2024-10-18] MEDS ORDERED: CARBOHYDRATES FOR HYPOGLYCEMIA PO PRN (08:36)
[2024-10-18] MEDS ORDERED: CYCLOBENZAPRINE HCL 10 MG TAB PO PRN (08:36)
[2024-10-18] MEDS ORDERED: GLUCOSE 10 TAB/TUBE PO PRN (08:36)
[2024-10-18] MEDS ORDERED: GLUCOSE 40% GEL 15 GM TUBE PO PRN (08:36)
[2024-10-18] MEDS ORDERED: PHARMACY GLYCEMIC MGMT CONSULT PRN (08:36)
[2024-10-18] MEDS ORDERED: ACETAMINOPHEN 325 MG TAB PO PRN (08:36)
[2024-10-18] MEDS ORDERED: DEXTROSE 50% 50 ML SYRINGE IV PRN (08:36)
[2024-10-18] MEDS ORDERED: DICYCLOMINE HCL 20 MG TAB PO PRN (08:36)
[2024-10-18] MEDS ORDERED: hydrOXYzine HCl 25 MG TAB PO PRN (08:36)
[2024-10-18] MEDS ORDERED: GLUCAGON FOR INJ 1 MG VIAL SQ PRN (08:36)
[2024-10-18] MEDS ORDERED: hydrOXYzine HCl 10 MG TAB PO PRN (08:36)
[2024-10-18] MEDS ORDERED: VANCOMYCIN HCL 1,500 MG in SODIUM CHLORIDE 0.9% 500 ML IV SCH (09:00)
[2024-10-18 09:40] LABS: C Reactive Protein 1.07 mg/dl (0-0.5)
--- NOTE | 2024-10-18 09:47 | Pharmacy Report ---
Pharmacy Glycemic Short Note 2 - Date of Service October 18, 2024 - Glycemic Short BSG Results (Last 24 hours): 10/18/24 10/18/24 01:28 08:58 Glucose 294 H POC Glucose 429 H* OUTPATIENT ANTIDIABETIC REGIMEN: * Insulin pump (previous settings 1.2 units/hr, CF 29, CR 1:7 per outpatient notes - patient not able to tell me specific settings) * U-500 - 40 units bid - per last Endo note (patient reporting 30-40 units bid, however self adjusts based upon BSG value Notes, frequent hypoglycemia overnight ASSESSMENT: * 49 year old admitted with otomastoiditis of right ear. PMHx significant for type 2 diabetes, hld, ibs, asthma, julissa's, gastroparesis. Pharmacy consulted for glycemic management. Last visit with YAMINI Regan 10/09/24 - at that time she was taking U-500 40 units BID but plan was to switch back to pump once supplies were mailed to her. Patient reports still waiting on insulin pump supplies to come in and also had misplaced some of the supplies for pump. BSGs >400 this AM, confirmed recheck with RN was also >400. Patient did received solumedrol 125 mg iv earlier this AM, likely contributing to hyperglycemia. * Will give IV insulin bolus 0.1 units/kg x 1 now, will give Lantus 40 units x 1 (full weight based stress of 3 dosing) and start novolog. Will likely have scale for Lantus at HS if BSGs continue to be elevated * Lunch BSG unchanged - started insulin infusion. Will have Lantus scale for HS to help with transition off drip PLAN FOR INPATIENT GLYCEMIC CONTROL: * Hold outpatient oral diabetes medications * Basal insulin * Lantus 40 units x 1 * Lantus 0-15 units HS * Bolus insulin - started insulin infusion this AM, will have set CR of 1:5 while on infusion * Reasonable to d/c insulin infusion once BSGs stable <180 x 2 consecutive checks and drip <2 units/hr
[2024-10-18] MEDS: NovoLIN-R INSULIN PER UNIT CHARGE IV ONE (10:08)
[2024-10-18] MEDS: INSULIN ASPART PER UNIT CHARGE SC SCH ×2 (10:09→13:43)
[2024-10-18] MEDS: LANTUS PER UNIT CHARGE SQ ONE ×2 (10:09→16:02)
[2024-10-18] MEDS ORDERED: STAT IV Infusion **Titration per Protocol STA (12:15)
[2024-10-18] MEDS ORDERED: SEVERE STRESS LEVEL ONE (12:15)
[2024-10-18] MEDS ORDERED: INSULIN PROTOCOL GOAL RANGE ONE (12:15)
--- NOTE | 2024-10-18 12:26 | Pharmacy Report ---
Pharmacy PK ABX Note - Date of Service October 18, 2024 - Assessment and Plan Assessment * 49 year old F receiving amp/sulbactam and vancomycin for treatment of otomastoiditis and groin abscess. Discussed w Dr. Jensen from [facility] on ASP rounds this AM - agrees with current coverage. * WBC wnl, afebrile * SCr at/near baseline w excellent eCrCL Plan Vancomycin * Loading dose: 2000 mg IV x 1 * Maintenance dose: 1500 mg IV every 12 hours * Regimen is predicted to achieve target AUC/ABHISHEK of 400-600 mg/L.hr * Random level ordered for: 10/20 w AM labs Pharmacy will continue to follow and will adjust dose/frequency as necessary. Thank you. Pharmacy has transitioned to AUC monitoring for vancomycin. AUC/ABHISHEK is the preferred PK/PD target and is associated with decreased risk of nephrotoxicity compared to traditional trough targets.
[2024-10-18] MEDS: FLUTICASONE/VILANTEROL 200/25MCG 14 PUFFS/INHALER INH SCH (12:32)
[2024-10-18] MEDS: METOCLOPRAMIDE HCL 5 MG TABLET PO SCH (12:32)
[2024-10-18] MEDS: INSULIN REGULAR 250 UNITS in SODIUM CHLORIDE 0.9% 247.5 ML IV SCH (12:34)
--- NOTE | 2024-10-18 12:45 | Electrocardiogram Report ---
Test Reason : Blood Pressure : */* mmHG Vent. Rate : 70 BPM Atrial Rate : 70 BPM P-R Int : 158 ms QRS Dur : 90 ms QT Int : 416 ms P-R-T Axes : 29 -46 36 degrees QTcB Int : 449 ms Normal sinus rhythm with sinus arrhythmia Left anterior fascicular block Abnormal ECG When compared with ECG of 12-Aug-2024 11:53, Left anterior fascicular block is now Present Confirmed by Robb Barajas ([id number]) on 10/18/2024 12:44:45 PM Referred By: REFERRED SELF Confirmed By: Robb Barajas
[2024-10-18] MEDS: DULoxetine HCL 20 MG CAP PO SCH (12:49)
[2024-10-18] MEDS: NovoLIN-R BOLUS FROM BAG IV ONE (12:50)
[2024-10-18] MEDS: PREGABALIN 100 MG CAP PO SCH (13:03)
[2024-10-18] MEDS: AMPICILLIN/SULBACTAM SOD 3,000 MG/100 ML BAG IV SCH (15:07)
[2024-10-18] MEDS: ONDANSETRON INJ 2 MG/ML 2 ML VIAL IV PRN (20:07)
[2024-10-18] MEDS ORDERED: MIRTAZAPINE SOLTAB 15 MG PO SCH (21:00)
[2024-10-18] MEDS ORDERED: LANTUS PER UNIT CHARGE SQ SCH (21:00)
[2024-10-18] MEDS: ASPIRIN 81 MG ECTAB PO SCH (21:57)
[2024-10-18] MEDS: ATORVASTATIN 40 MG TAB PO SCH (21:58)
[2024-10-18] MEDS: DOXEPIN HCL 50 MG CAPSULE PO SCH (21:58)
[2024-10-18] MEDS: MIRTAZAPINE SOLTAB 15 MG PO SCH (22:00)
[2024-10-18] MEDS: PANTOprazole 40 MG TAB PO SCH (22:00)
[2024-10-18] MEDS: OXYBUTYNIN CHLORIDE XL 5 MG TABCR PO SCH (22:00)
[2024-10-18] MEDS: TOPIRAMATE 100 MG TAB PO SCH (22:02)
[2024-10-18] MEDS: VANCOMYCIN HCL 1,500 MG in SODIUM CHLORIDE 0.9% 500 ML IV SCH (22:02)
[2024-10-19] MEDS: PREGABALIN 100 MG CAP PO SCH (01:05)
[2024-10-19 04:51] LABS: Basophils # (auto) 0.03 K/uL (0.00-0.20); Basophils % (auto) 0.3 %; Eosinophils # (auto) 0.06 K/uL (0.00-0.50); Eosinophils % (auto) 0.5 %; Hematocrit (blood only) 37.4 % (37.0-47.0); Hemoglobin 12.7 g/dl (12.0-16.0); Immature Granulocytes # (auto) 0.05 K/uL (0.01-0.20); Immature Granulocytes % (auto) 0.4 %; Lymphocytes # (auto) 2.29 K/uL (1.20-3.40); Lymphocytes % (auto) 20.4 %; Mean Corpuscular Hemoglobin 28.5 pg (25.0-34.0); Mean Platelet Volume 9.9 fL (9.4-12.4); Monocytes # (auto) 0.82 K/uL (0.11-0.59); Monocytes % (auto) 7.3 %; Neutrophils % (auto) 71.1 %; Platelet Count 221 K/uL (130-400); RDW Coefficient of Variation 12.4 % (11.5-14.5); RDW Standard Deviation 37.5 fL (36.4-46.3); Red Blood Count 4.45 M/uL (4.20-5.40); White Blood Count 11.25 K/ul (4.8-10.8)
[2024-10-19 05:21] LABS: BUN Creatinine Ratio 30.2 (10-20); Calcium 8.4 mg/dl (8.6-10.3); Magnesium 1.8 mg/dl (1.7-2.4)
[2024-10-19] MEDS: LANTUS PER UNIT CHARGE SQ ONE (08:36)
[2024-10-19] MEDS: INSULIN ASPART PER UNIT CHARGE SC SCH (10:13)
--- NOTE | 2024-10-19 10:44 | Hospitalist Progress Note ---
Date of Service October 19, 2024 Assessment & Plan (1) Mastoiditis: (2) Hypomagnesemia: (3) Hyperglycemia due to type 2 diabetes mellitus: (4) Cough: (5) Groin abscess: (6) Vomiting and diarrhea: (7) Thyroid nodule: Plan Patient is a 49-year-old female with past medical history of type II DM insulin- dependent, hyperlipidemia, IBS, asthma, migraines, depression, gastroparesis, Tyelr's thyroiditis, chronic otitis media of right ear with effusion, right sided sensorineural hearing loss, chronic laryngitis, chronic tinnitus of right ear. Patient is being admitted for IV antibiotics due to otomastoiditis of right ear. She also was found to have a magnesium of 1.6. Sepsis secondary to mastoiditis and groin infection Cntinue antibiotics, vanc and Unasyn #otomastoiditis Patient presents with right sided headache, fullness, fevers, chills Soft tissue neck CT showed bone defect noted in right mastoid bone outline with opacification, could be otomastoiditis Patient with tenderness of mastoid process Will obtain a dedicated Ct head to evaluate for mstoiditis Started on vanc and unasyn await recs from ENT #Hypomagnesemia Mg 1.6 on admission K+ stable 2/2 vomiting and diarrhea 2G IV Mg ordered Trend BMP and Mg #Poorly controlled type II DM Patient reports she lost her insulin pump, glucose in the 300's on admission Most recent A1c 12.4 10/09/2024 Noted that patient uses 40 units twice daily through insulin pump during recent diabetes visit started on insulin drip by pharmacy #Cough/chest pain Patient reports chronic cough acutely worsened x 3 days along with chest heaviness BioFire negative Troponin 2.6, EKG NSR, no ischemic changes Chest CTA negative given IV Solu-Medrol 125 Mg in ED; defer further steroid use DuoNeb every 2 hours as needed Tessalon Perles as needed Tylenol as needed MRSA swab ordered #groin abscess Patient reports left-sided groin abscess for 5 days Patient reports no drainage or IV drug use Coverage with Unasyn and vanc for mastoiditis as above will add MRSA coverage with vancomycin given frequent ER/hospital visits wound care #vomiting and diarrhea Patient reports intermittent vomiting and diarrhea x 3 days Does endorse chronic alternating constipation and diarrhea with IBS BioFire negative denies ABD pain Vomiting differential includes but not limited to vestibular cause with mastoiditis, cannabis hyperemesis syndrome, gastritis Zofran as needed slightly dry on admission - BUN/creatinine 27.3 - gentle IVF resuscitation with NSS at 80 mL/hour x 500 mL #thyroid nodule Incidental finding on soft tissue neck CT CT showed mild enlarged right thyroid lobe with few bilateral nodules, ultrasound correlation is needed TSH 10/09/2024 WNL Recommend ultrasound in outpatient setting with PCP Recent diabetes ED's visit notes patient unsure if she has been taking her levothyroxine, most recently prescribed 2021, hold at this time Chronic stable diagnoses: HLDcontinue ASA and atorvastatin AsthmaDuoNeb as above, continue daily inhaler Depression/anxiety continue duloxetine, hydroxyzine, lorazepam, mirtazapine migrainescontinue topiramate GERDcontinue Protonix VTE ppx: SCDs, low risk and able to ambulate Diet: T2DM Dispo: MedSurg, OBS Admission and Anticipated Discharge Date Admission Date: October 18, 2024 Subjective patient seen and examined, a bit drowsy, but says her heache is better Review of Systems Review of Systems: All systems reviewed are negative, apart from the ones contained in the history. Physical Exam Physical Exam: The patient is awake, alert and oriented 3, well developed and well nourished, normocephalic and atraumatic, lying in bed and in no acute distress. HEENT--PERRL, EOMI, mucous membranes and oropharynx mildly dry Neck--supple. No JVD. No bruits. Thyroid normal, trachea midline, no adenopathy. Heart--normal S1 and S2. No murmurs, rubs or gallops. Lungs--clear bilaterally, no respiratory distress, no accessory muscle use. Abdomen--normal bowel sounds and soft. Extremities--no cyanosis or clubbing. No edema. Dermatologic--normal skin turgor, normal color, no abnormal lymph nodes, no rash. Neurologic--cranial nerves II through XII grossly intact. Rheumatologic--normal range of motion. Psychiatric--normal affect. Results & Data Results & Data Vital Signs (Past 12 Hours) Vital Signs Pulse Resp BP Pulse Ox 10/19/24 10:13 72/36 L 10/19/24 10:13 72/36 L 10/19/24 10:12 61 15 98 10/19/24 10:00 65/38 L 10/19/24 10:00 65/38 L 10/19/24 10:00 58 L 14 96 10/19/24 09:52 86/48 L 10/19/24 09:52 86/48 L 10/19/24 09:52 86/48 L 10/19/24 09:48 82/45 L 10/19/24 09:48 82/45 L 10/19/24 09:47 63/38 L 10/19/24 09:42 69/42 L 10/19/24 09:24 57 L 17 99 10/19/24 09:00 96/70 L 10/19/24 09:00 60 15 97 10/19/24 08:36 53 L 13 98 10/19/24 08:30 95/56 L 10/19/24 08:30 95/56 L 10/19/24 08:24 54 L 14 98 10/19/24 08:00 59 L 17 98 10/19/24 08:00 89/56 L 10/19/24 08:00 89/56 L 10/19/24 07:06 58 L 10/19/24 07:03 58 L 16 98 10/19/24 07:00 84/56 L 10/19/24 06:45 56 L 16 95 10/19/24 06:30 91/56 L 10/19/24 06:30 91/56 L 10/19/24 06:03 60 14 97/54 L 95 10/19/24 05:09 61 15 99/57 L 92 10/19/24 04:06 61 14 91 10/19/24 03:21 63 14 92 10/19/24 02:09 64 19 109/55 L 92 10/19/24 01:30 67 14 121/54 L 92 10/18/24 23:36 67 10/18/24 23:03 95 H 23 169/87 H 97 PG Care Time/CCT Total # of Minutes Spent Total Time Spent with Patient: Total time spent is greater than 50% in coordination of care (as documented) at patient's floor/unit and/or counseling patient: Coding Level of Care Code 34840 SUB INP/OBS CARE 235MIN Diagnoses Mastoiditis H70.91 Laterality: right Hypomagnesemia E83.42 Hyperglycemia due to type 2 diabetes mellitus E11.65 Cough R05.9 Groin abscess L02.214 Vomiting and diarrhea R11.10; R19.7 Thyroid nodule E04.1 Time Spent (min) 35 (1) Mastoiditis Laterality: right Qualified Code(s): H70.91 - Unspecified mastoiditis, right ear
[2024-10-19] MEDS: INSULIN ASPART PER UNIT CHARGE SC ONE (11:39)
--- NOTE | 2024-10-19 12:27 | CT Scan Report ---
CT OF THE HEAD WITHOUT CONTRAST CLINICAL HISTORY: follow up mastoiditis COMPARISON STUDY: Head CT March 16, 2024. MRI of the brain June 07, 2014. CT of the neck October 052024. CT DOSE: 663.26 mGy.cm TECHNIQUE: Helical axial images of the head were obtained without IV contrast. Automated exposure con trol was utilized for the study. A dose lowering technique was utilized adhering to the principles o f ALARA. FINDINGS: No acute intracranial hemorrhage, midline shift or mass effect is present. The ventricular system is unremarkable. The basal cisterns are patent. No extra-axial collections are present. There are no findings to suggest acute dural sinus thrombosis or acute territorial infarct. There are no ca lvarial fractures. There are stable postoperative findings within the right mastoid air cells when co rrelating with prior studies. A right mastoid effusion is also similar to earlier exams. This is like ly chronic. Fluid within the right middle ear is also noted. This was shown on prior CT of October 052023. IMPRESSION: 1. No acute intracranial findings. 2. Stable postoperative findings within the right mastoid air cells and stable fluid within the right mastoid air cells and right middle ear from earlier exams. ACT 112: Negative or not required by law. Electronically signed by: Olivier Delacruz M.D. 10/19/2024 12:25 PM
[2024-10-19] MEDS ORDERED: Nursing to Pharmacy Communication SCH (12:45)
--- NOTE | 2024-10-19 12:56 | ENT Consultation ---
Date of Consultation October 19, 2024 Assessment & Plan (1) Chronic otitis media of right ear with effusion: 1. Review of seven (7) Head Scans in the last 18 months and the Head CT done on Admission (18 OCT 2024) does NOT show ANY acute Mastoiditis - but this is CHRONIC Mastoid tissue from her Ear Surgery in 2020. 2. Clinical / Bedside Exam is NEGATIVE for any acute RIGHT Mastoid infection. There is NO Tenderness, NO swelling, and NO erythema of the Post-auricular or Mastoid area. Again - most consistent with a post-surgical (2020) mastoid surgery. 3. OTOSCOPIC EXAM: NO signs of purrulence in the RIGHT Middle ear. This is a SEROUS EFFUSION. IMPRESSION: I don't doubt the patient's RIGHT Head pain - but this is NOT ACUTE mastoiditis - but rather a Chronic Otitis Media with Serous Effusion & tympanic retraction. Certainly the IV Antibiotic Regimen will help with her RIGHT otalgia. Would confer with the Groin Infection & follow the WBC this admission. PLAN: As patient's Diabetes is better controlled during this admission and the groin infection monitored - would be happy to perform a RIGHT Myringotomy and place a RIGHT tympanostomy tube under Local Anesthesia - IF Ok with Hospital Team and OR Staff. A tympanostomy tube placment might help improve the patient's pain. Otherwise this would have to be done Outpatient at a future date. History of Present Illness Reason for Consultation: RIGHT Ear - otalgia Requesting Physician: Rama Andino MD Attending Physician: Rama Andino MD History of Present Illness The patient is a 49-year-old female who presented to [facility] yesterday ( 18 OCT 2024) with complaint of cough, headache, abdominal pain and mild imbalance. Work-up included Labs and CT Scan of Neck. CT read a Otomastoiditis. Patient is being admitted for IV antibiotics due to otomastoiditis of right ear. She also was found to have a magnesium of 1.6. There is a groin infection. Patient was placed on IV VANCO & UNASYN. This Patient had a RIGHT tympanomastoidectomy by Dr. Plata in 2020. NO cholesteatoma was found. Infection was nonexistent and an aural polyp found. A RIGHT tympanostomy tube was also placed at that time. That RIGHT tympanostomy tube extruded by September 2023. A second RIGHT PE Tube was placed for a chronic serous effusion in DECEMBER 2023 by me. Patient seen by Dr. Corea on ( 28 JUL 2024) and the 2nd RIGHT PE Tube had extruded by then. The RIGHT TM was retracted again and a serous effusion present as before. Patient was placed on oral antibiotics then with a plan for follow-up in 6 months in the ENT Clinic. Past Med Hx: diabetes mellitus type 2 insulin requiring, hyperlipidemia, IBS, asthma, migraines, depression, gastroparesis, Tyler's thyroiditis, chronic otitis media right ear with effusion, right sided sensorineural hearing loss, chronic laryngitis, and chronic tinnitus of right ear. She presents to the emergency department with complaint of cough, headache, abdominal pain and mild imbalance. Allergies Allergy/AdvReac Type Severity Reaction Status Date / Time adhesive Allergy Intermediate skin Verified 10/09/24 15:56 redness, itchy bee venom protein (honey bee) Allergy Intermediate red Verified 10/09/24 15:56 welts/swelling > bruising citalopram AdvReac Intermediate jaw pain, Verified 10/09/24 15:56 headaches morphine AdvReac Intermediate localized Verified 10/09/24 15:56 reaction, redness/welts due to IV infiltration pollen extracts AdvReac Intermediate itchy Verified 10/09/24 15:56 eyes, scratchy throat, swollen eyes Home Medications Medication Instructions Recorded Confirmed Type Medical Thc 1 dose inhalation DAILY PRN Anxiety 04/05/21 10/18/24 History hydroxyzine HCl 50 mg tablet 50 - 100 mg PO HS PRN Sleep 10/14/21 10/18/24 History loperamide 2 mg capsule (Imodium 2 mg PO Q6H PRN loose stool #30 11/04/21 10/18/24 Rx A-D) caps levothyroxine 75 mcg tablet 75 mcg PO HS #90 tabs 07/15/22 10/18/24 Rx (Synthroid) epinephrine 0.3 mg/0.3 mL 0.3 mg (0.3 mL) IM DIRECTED PRN 12/02/22 10/18/24 Rx injection, auto-injector (EpiPen) Allergic Reaction #1 ea acetaminophen 500 mg tablet 1,000 mg PO Q6H PRN Pain 03/17/23 10/18/24 History (Acetaminophen Extra Strength) cholecalciferol (vitamin D3) 50 100 mcg PO HS 03/17/23 10/18/24 History mcg (2,000 unit) capsule (Vitamin D3) cholestyramine (with sugar) 4 gram 4 g PO BID PRN NEEDED for 03/17/23 10/18/24 Rx powder for susp in a packet diarrhea #60 ea diclofenac sodium 1 % topical gel 2 g topical QID PRN Inflammation 03/17/23 10/18/24 Rx #100 grams doxepin 50 mg capsule 50 mg PO HS #30 caps 03/17/23 10/18/24 Rx estradiol 0.01% (0.1 mg/gram) 1 g vaginal 2XWK #42.5 grams 03/17/23 10/18/24 Rx vaginal cream hydroxyzine HCl 10 mg tablet 10 mg PO BID PRN Anxiety 03/17/23 10/18/24 History lidocaine 5 % topical patch 1 patch topical DAILY PRN pain #15 03/25/23 10/18/24 Rx ea fluticasone 250 mcg-salmeterol 50 1 inh inhalation BID #60 ea 03/28/23 10/18/24 Rx mcg/dose blistr powdr for inhalation (Advair Diskus) ipratropium 0.5 mg-albuterol 3 mg 3 ml inhalation Q8H PRN Wheezing 05/12/23 10/18/24 Rx (2.5 mg base)/3 mL nebulization #180 mL soln lorazepam 1 mg tablet 1 mg PO UD PRN Anxiety 05/13/23 10/18/24 History topiramate 100 mg tablet 100 mg PO UD 05/13/23 10/18/24 History pantoprazole 40 mg tablet,delayed 40 mg PO HS GERD 06/08/23 10/18/24 History release (Protonix) duloxetine 20 mg capsule,delayed 20 mg PO BID #60 caps 06/12/23 10/18/24 Rx release azelastine 137 mcg (0.1 %) nasal 2 spray intranasal DAILY PRN 07/05/23 10/18/24 Rx spray Congestion #30 mL naproxen 500 mg tablet 500 mg PO DAILY PRN DIRECTED 07/05/23 10/18/24 Rx #30 tabs ondansetron HCl 4 mg tablet 4 mg PO Q8H PRN nausea and 08/10/23 10/18/24 Rx vomiting #90 tabs albuterol sulfate 90 mcg/actuation 1 inh inhalation QID PRN shortness 09/12/23 10/18/24 Rx aerosol inhaler of breath or wheezing #8.5 grams albuterol sulfate 1.25 mg/3 mL 1.25 mg (3 mL) inhalation Q4H PRN 09/23/23 10/18/24 Rx solution for nebulization bronchospasm #75 mL promethazine-DM 6.25 mg-15 mg/5 mL 5 ml PO Q6H PRN cough #200 mL 10/09/23 10/18/24 Rx oral syrup dicyclomine 20 mg tablet 20 mg PO QID PRN abdominal pain 10/26/23 10/18/24 Rx #30 tabs cyclobenzaprine 10 mg tablet 10 mg PO UD PRN MUSCLE SPASMS 12/01/23 10/18/24 History metoclopramide HCl 5 mg tablet 5 mg PO BID #28 tabs 12/03/23 10/18/24 Rx lumateperone 42 mg capsule 42 mg PO HS 12/16/23 10/18/24 History (Caplyta) ubrogepant 100 mg tablet (Ubrelvy) 100 mg PO DIRECTED PRN MIGRAINE 12/30/23 10/18/24 History HEADACHES Saccharomyces boulardii 250 mg 500 mg PO HS 02/10/24 10/18/24 History capsule (Florastor) aspirin 81 mg tablet,delayed 81 mg PO HS 02/10/24 10/18/24 History release benzonatate 200 mg capsule 200 mg PO TID PRN cough #20 caps 02/10/24 10/18/24 Rx solifenacin 5 mg tablet (Vesicare) 5 mg PO UD 02/10/24 10/18/24 History dexamethasone 0.5 mg/5 mL oral 0.5 mg (5 mL) PO BID #240 mL 07/29/24 10/18/24 Rx solution blood-glucose sensor (Dexcom G7 10/09/24 10/09/24 History Sensor device) Novolog U-100 Insulin aspart 100 80 unit (0.8 mL) continuous 10/10/24 10/18/24 Rx unit/mL subcutaneous solution subcutaneous infusion DAILY 90 (insulin aspart U-100) days #80 mL atorvastatin 40 mg tablet 40 mg PO HS #90 tabs 10/10/24 10/18/24 Rx blood sugar diagnostic (Accu-Chek #300 ea 10/10/24 10/10/24 Rx Guide test strips) insulin regular hum U-500 conc 500 80 unit (0.16 mL) subcut QPM 90 10/10/24 Rx unit/mL(3 mL) subcut pen days #18 mL pen needle,diabetic dual safty 30 #100 ea 10/10/24 10/10/24 Rx gauge x 3/16" pregabalin 100 mg capsule 100 mg PO BID 30 days #60 caps 10/10/24 10/18/24 Rx lancets (Accu-Chek Softclix #100 ea 10/11/24 Rx Lancets) fluconazole 150 mg tablet 150 mg PO UD 10/18/24 10/18/24 History mirtazapine 30 mg tablet 30 mg PO HS 10/18/24 10/18/24 History Patient History Medical History Chronic sinusitis Degenerative joint disease of left hip Diverticulosis (02/13/12) Dysphagia Endometriosis Eustachian tube dysfunction Fatty infiltration of liver H/O concussion Hematuria Incontinence Insomnia Internal hemorrhoids Kidney stones Mastoid disorder Post traumatic stress disorder Sciatica Sensorineural hearing loss of both ears Urinary urgency Yeast dermatitis Surgical History History of anesthesia reaction "Slow to wake" History of arthroscopy of right shoulder History of bladder surgery suburethral sling with hysterectomy (2009) History of cholecystectomy History of colonoscopy History of esophagogastroduodenoscopy (EGD) EGD (02/06/20): MAC at [facility] History of knee surgery Right History of myringotomy bilateral tubes (multiple) Right myringotomy tube (04/09/18): LMA#4 at [facility] [place] (weight at time was 118kg) History of tonsillectomy History of tooth extraction History of tubal ligation S/P epidural steroid injection S/P laparoscopic assisted vaginal hysterectomy (LAVH) S/P tympanoplasty right ([address]ata) Family History Father Myocardial infarction Prostate cancer Diabetes Hypertension Biliary liver cirrhosis Mother , 2008 Myocardial infarction Dementia Diabetes Hypertension Other No significant family history Denies family history of Ovarian cancer Crohn's disease Breast cancer Lung cancer Colorectal cancer Ulcerative colitis Social History Smoking Status: Never smoker Tobacco Type: E-cigarettes / Vaping Second Hand Exposure: No; Do You Dip or Chew Tobacco: No; Hx Alcohol Use: Yes Alcohol type: hard liquor Alcohol Intake Frequency: Monthly or Less Hx Substance Use: Yes Prescribed Medications: Marijuana Last Used Substance Other:: Last night, stated uses about once a day. Substance Use Type Other:: Medical marijuana. 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 caffeine: Yes Dental Care, Regularly: Yes Physical Activity Frequency: Does not Exercise Seatbelt Use: always Sunscreen Use: Yes Assistive Devices: Cane, Glasses and Walker Review of Systems Review of Systems: see Admission HPI Ear, Nose, Mouth, Throat: + ear pain, + dental caries, + sore thro at and + change in voice; no ear trauma, no nasal discharge, no mouth lesions and no pain with swallowing Physical Exam Physical Exam: Patient is ALERT & Oriented. Sitting Up in bed and eating a hearty Lunch. HEAD: Normocephalic CRANIAL NERVES: CN II - XII Intact NO Facial Weakness FACE: NO Erythema NO Rash Lips Normal EYES: EOMI PERRL Ears: External Ears - Normal - NO swelling, NO erythema Ext Aud. Canals - CLEAR Bilateral - NO discharge. NO swelling. LEFT ear & Mastoid is NORMAL RIGHT side - NO Mastoid Tip findings... NO Post-auricular swelling. NO post-auricular erythema. NO post-auricular tenderness to palpation. Tympanic Membranes - Normal LEFT. - intact but RETRACTED RIGHT - NOT inflammed. - NO Erythema of Either Tympanic Membrane. Middle Ears - CLEAR LEFT - SEROUS Effusion on Right - NO pus. NOSE: External Dorsum - NO Deformity Septum - MIDLINE - with a small SPUR to the LEFT |> Turbinate - Normal shape & mucosa - NO Polyps MOUTH: Dentition - Poor Repair - with many missing teeth. Floor of Mouth - CLEAR. NO Edema Shawnee's Ducts normal Tongue - NO masses - NO Ulcers. - there is an Anterior Tongue Piercing present. OROPHARYNX: Tonsils Absent Uvula Midline NECK: Trachea Midline NO masses NO adenopathy Results & Data Vital Signs (Past 12 Hours) Vital Signs Pulse Resp BP Pulse Ox 10/19/24 12:21 54 L 10/19/24 11:00 81/45 L 10/19/24 11:00 81/45 L 10/19/24 10:57 59 L 13 96 10/19/24 10:30 70/42 L 10/19/24 10:30 70/42 L 10/19/24 10:30 70/42 L 10/19/24 10:30 58 L 14 96 10/19/24 10:24 58 L 12 96 10/19/24 10:22 72/37 L 10/19/24 10:13 72/36 L 10/19/24 10:13 72/36 L 10/19/24 10:12 61 15 98 10/19/24 10:00 65/38 L 10/19/24 10:00 65/38 L 10/19/24 10:00 58 L 14 96 10/19/24 09:52 86/48 L 10/19/24 09:52 86/48 L 10/19/24 09:52 86/48 L 10/19/24 09:48 82/45 L 10/19/24 09:48 82/45 L 10/19/24 09:47 63/38 L 10/19/24 09:42 69/42 L 10/19/24 09:24 57 L 17 99 10/19/24 09:00 96/70 L 10/19/24 09:00 60 15 97 10/19/24 08:36 53 L 13 98 10/19/24 08:30 95/56 L 10/19/24 08:30 95/56 L 10/19/24 08:24 54 L 14 98 10/19/24 08:00 59 L 17 98 10/19/24 08:00 89/56 L 10/19/24 08:00 89/56 L 10/19/24 07:06 58 L 10/19/24 07:03 58 L 16 98 10/19/24 07:00 84/56 L 10/19/24 06:45 56 L 16 95 10/19/24 06:30 91/56 L 10/19/24 06:30 91/56 L 10/19/24 06:03 60 14 97/54 L 95 10/19/24 05:09 61 15 99/57 L 92 10/19/24 04:06 61 14 91 10/19/24 03:21 63 14 92 10/19/24 02:09 64 19 109/55 L 92 10/19/24 01:30 67 14 121/54 L 92 Laboratory Results WBC = 11.25 Hgb = 12.7 Hct = 37.[address] OF THE HEAD WITHOUT CONTRAST CLINICAL HISTORY: follow up mastoiditis COMPARISON STUDY: Head CT March 16, 2024. MRI of the brain June 07, 2014. CT of the neck October 18, 2024. FINDINGS: No acute intracranial hemorrhage, midline shift or mass effect is present. The ventricular system is unremarkable. The basal cisterns are patent. No extra-axial collections are present. There are no findings to suggest acute dural sinus thrombosis or acute territorial infarct. There are no calvarial fractures. There are stable postoperative findings within the right mastoid air cells when correlating with prior studies. A right mastoid effusion is also similar to earlier exams. This is likely chronic. Fluid within the right middle ear is also noted. This was shown on prior CT of October 19, 2023. IMPRESSION: 1. No acute intracranial findings. 2. Stable postoperative findings within the right mastoid air cells and stable fluid within the right mastoid air cells and right middle ear from earlier exams. Electronically signed by: Olivier Delacruz M.D. Medications Administered IV Vanco & Unasyn PG Care Time/CCT Total # of Minutes Spent Total Time Spent: 72 Total Time Spent with Patient: Total time spent is greater than 50% in coordination of care (as documented) at patient's floor/unit and/or counseling patient - chart review - imaging review and decision making: Torey Davis MD, FACS Coding Level of Care Code 66769 IN/OBS CONSULT LVL 4,60M Diagnoses Chronic otitis media of right ear with effusion H65.491
--- NOTE | 2024-10-19 13:02 | Pharmacy Report ---
Pharmacy Glycemic Short Note 2 - Date of Service October 19, 2024 - Glycemic Short BSG Results (Last 24 hours): 10/18/24 10/18/24 10/18/24 13:29 14:39 15:40 Glucose POC Glucose 364 H* 369 H* 379 H* 10/18/24 10/18/24 10/18/24 16:52 17:53 19:07 Glucose POC Glucose 308 H* 265 H 302 H* 10/18/24 10/18/24 10/18/24 19:58 21:04 22:07 Glucose POC Glucose 303 H* 250 H 176 H 10/18/24 10/19/24 10/19/24 23:12 00:20 01:25 Glucose POC Glucose 115 H 136 H 98 10/19/24 10/19/24 10/19/24 03:35 04:25 05:24 Glucose 189 H POC Glucose 155 H 192 H 10/19/24 10/19/24 10/19/24 06:36 07:36 08:45 Glucose POC Glucose 188 H 177 H 144 H 10/19/24 10/19/24 10:14 11:18 Glucose POC Glucose 258 H 243 H OUTPATIENT ANTIDIABETIC REGIMEN: * Insulin pump (previous settings 1.2 units/hr, CF 29, CR 1:7 per outpatient notes - patient not able to tell me specific settings) * U-500 - 40 units bid - per last Endo note (patient reporting 30-40 units bid, however self adjusts based upon BSG value Notes, frequent hypoglycemia overnight ASSESSMENT: 10/19/24 * Patient received 55 units of basal yesterday + 105 units of NovoLog carb coverage, while on the insulin drip at rates from 2-10 units/hr, d/t IV Solu- Medrol induced hyperglycemia, given yesterday morning. Blood sugar at goal this morning, overlapped insulin drip with basal insulin, and drip turned off at 1000. * Will continue basal bolus insulin at this time, on type 2 DM diet, no further steroids at this time. 10/18/24 * 49 year old admitted with otomastoiditis of right ear. PMHx significant for type 2 diabetes, hld, ibs, asthma, julissa's, gastroparesis. Pharmacy consulted for glycemic management. Last visit with YAMINI Regan 10/09/24 - at that time she was taking U-500 40 units BID but plan was to switch back to pump once supplies were mailed to her. Patient reports still waiting on insulin pump supplies to come in and also had misplaced some of the supplies for pump. BSGs >400 this AM, confirmed recheck with RN was also >400. Patient did received Solu-Medrol 125 mg iv earlier this AM, likely contributing to hyperglycemia. * Will give IV insulin bolus 0.1 units/kg x 1 now, will give Lantus 40 units x 1 (full weight based stress of 3 dosing) and start novolog. Will likely have scale for Lantus at HS if BSGs continue to be elevated * Lunch BSG unchanged - started insulin infusion. Will have Lantus scale for HS to help with transition off drip PLAN FOR INPATIENT GLYCEMIC CONTROL: * Hold outpatient diabetes medications * Basal insulin * Lantus 55 units SC daily * IV insulin infusion DC at 1000 * Bolus insulin * NovoLog ACHS * CF: 15mg/dL/units * CR: 1 unit per 4 grams CHO consumed
[2024-10-19] MEDS: INSULIN ASPART PER UNIT CHARGE SC STA (13:20)
[2024-10-19] MEDS: MIDODRINE HCL 2.5 MG TAB PO SCH (17:17)
[2024-10-20] MEDS: INSULIN ASPART PER UNIT CHARGE SC SCH (00:57)
[2024-10-20 05:40] LABS: Hematocrit (blood only) 39.6 % (37.0-47.0); Hemoglobin 13.1 g/dl (12.0-16.0); Mean Corpuscular Hgb Conc 33.1 g/dL (32.0-36.0); Mean Corpuscular Volume 87.8 fL (80.0-100.0); Mean Platelet Volume 9.4 fL (9.4-12.4); Platelet Count 213 K/uL (130-400); RDW Coefficient of Variation 13.1 % (11.5-14.5); RDW Standard Deviation 42.5 fL (36.4-46.3); Red Blood Count 4.51 M/uL (4.20-5.40); White Blood Count 6.91 K/ul (4.8-10.8)
[2024-10-20 06:21] LABS: BUN Creatinine Ratio 36.2 (10-20); Calcium 8.6 mg/dl (8.6-10.3); Potassium 4.7 mmol/L (3.5-5.1)
[2024-10-20] MEDS: DULoxetine HCL 30 MG CAP PO SCH (07:38)
[2024-10-20] MEDS: LANTUS PER UNIT CHARGE SQ SCH (08:20)
[2024-10-20] MEDS: VANCOMYCIN LEVEL ONE (08:25)
--- NOTE | 2024-10-20 10:06 | Hospitalist Progress Note ---
Date of Service October 20, 2024 Assessment & Plan (1) Mastoiditis: (2) Hypomagnesemia: (3) Hyperglycemia due to type 2 diabetes mellitus: (4) Cough: (5) Groin abscess: (6) Vomiting and diarrhea: (7) Thyroid nodule: Plan Patient is a 49-year-old female with past medical history of type II DM insulin- dependent, hyperlipidemia, IBS, asthma, migraines, depression, gastroparesis, Tyler's thyroiditis, chronic otitis media of right ear with effusion, right sided sensorineural hearing loss, chronic laryngitis, chronic tinnitus of right ear. Patient is being admitted for IV antibiotics due to otomastoiditis of right ear. She also was found to have a magnesium of 1.6. Sepsis secondary to otitis media and groin infection resolving Cntinue antibiotics, vanc and Unasyn #Otitis Media Initially thought to be mastoiditis, however per ENT, after otoscopy, patient found to have serous otitis media Plan is for right myringotomy and tympanostomy Continue antibiotics and pain control appreciate ENT #Hypomagnesemia Replace #Poorly controlled type II DM Patient reports she lost her insulin pump, glucose in the 300's on admission Most recent A1c 12.4 10/09/2024 Noted that patient uses 40 units twice daily through insulin pump during recent diabetes visit Initially started on insulin drip by pharmacy, but has been transitioned to SQ insulin Currently on 55 units Q daily Glargine and meal coverage with Novolog Upon discharge, patient says she prefers injections to insulin pump (she used to be on Tresiba, but it may not be covered by insurance) She may need Lantus pen and aspart pen #Cough/chest pain Patient reports chronic cough acutely worsened x 3 days along with chest heaviness BioFire negative Troponin 2.6, EKG NSR, no ischemic changes Chest CTA negative given IV Solu-Medrol 125 Mg in ED; defer further steroid use DuoNeb every 2 hours as needed Tessalon Perles as needed Tylenol as needed MRSA swab ordered #groin abscess Patient reports left-sided groin abscess for 5 days Patient reports no drainage or IV drug use Coverage with Unasyn and vanc MRSA coverage with vancomycin given frequent ER/hospital visits wound care #vomiting and diarrhea now resolved Patient reports intermittent vomiting and diarrhea x 3 days Does endorse chronic alternating constipation and diarrhea with IBS BioFire negative denies ABD pain Vomiting differential includes but not limited to vestibular cause with mas toiditis, cannabis hyperemesis syndrome, gastritis Zofran as needed slightly dry on admission - BUN/creatinine 27.3 - gentle IVF resuscitation with NSS at 80 mL/hour x 500 mL #thyroid nodule Incidental finding on soft tissue neck CT CT showed mild enlarged right thyroid lobe with few bilateral nodules, ultrasound correlation is needed TSH 10/09/2024 WNL Recommend ultrasound in outpatient setting with PCP Recent diabetes ED's visit notes patient unsure if she has been taking her levothyroxine, most recently prescribed 2021, hold at this time Chronic stable diagnoses: HLDcontinue ASA and atorvastatin AsthmaDuoNeb as above, continue daily inhaler Depression/anxiety continue duloxetine, hydroxyzine, lorazepam, mirtazapine migrainescontinue topiramate GERDcontinue Protonix VTE ppx: SCDs, low risk and able to ambulate Diet: T2DM Dispo: MedSurg, OBS Admission and Anticipated Discharge Date Admission Date: October 18, 2024 Subjective patient seen and examined, a bit drowsy, but says her heache is better Review of Systems Review of Systems: All systems reviewed are negative, apart from the ones contained in the history. Physical Exam Physical Exam: The patient is awake, alert and oriented 3, well developed and well nourished, normocephalic and atraumatic, lying in bed and in no acute distress. HEENT--PERRL, EOMI, mucous membranes and oropharynx mildly dry Neck--supple. No JVD. No bruits. Thyroid normal, trachea midline, no adenopathy. Heart--normal S1 and S2. No murmurs, rubs or gallops. Lungs--clear bilaterally, no respiratory distress, no accessory muscle use. Abdomen--normal bowel sounds and soft. Extremities--no cyanosis or clubbing. No edema. Dermatologic--normal skin turgor, normal color, no abnormal lymph nodes, no rash. Neurologic--cranial nerves II through XII grossly intact. Rheumatologic--normal range of motion. Psychiatric--normal affect. Results & Data Results & Data Vital Signs (Past 12 Hours) Vital Signs Temp Pulse Pulse Resp BP Pulse Ox O2 Del Method 10/20/24 08:00 97.9 F 70 20 122/69 96 Nasal Cannula 10/20/24 07:03 62 10/20/24 07:03 Nasal Cannula 10/20/24 06:22 69 18 104/70 10/20/24 03:23 97.7 F 60 18 102/67 94 Nasal Cannula 10/19/24 23:32 98.1 F 55 L 18 106/70 92 Nasal Cannula O2 Flow Rate 10/20/24 08:00 2 10/20/24 07:03 10/20/24 07:03 2 10/20/24 06:22 10/20/24 03:23 2 10/19/24 23:32 2 PG Care Time/CCT Total # of Minutes Spent Total Time Spent with Patient: Total time spent is greater than 50% in coordination of care (as documented) at patient's floor/unit and/or counseling patient: Coding Level of Care Code 19084 SUB INP/OBS CARE 235MIN Diagnoses Mastoiditis H70.91 Laterality: right Hypomagnesemia E83.42 Hyperglycemia due to type 2 diabetes mellitus E11.65 Cough R05.9 Groin abscess L02.214 Vomiting and diarrhea R11.10; R19.7 Thyroid nodule E04.1 Time Spent (min) 35 (1) Mastoiditis Laterality: right Qualified Code(s): H70.91 - Unspecified mastoiditis, right ear
--- NOTE | 2024-10-20 12:33 | Ears,Nose,Throat Progress Note ---
"Date of Service October 20, 2024 Assessment & Plan (1) Chronic otitis media of right ear with effusion: Plan: Patient is a 49-year-old female with past medical history of type II DM insulin- dependent, hyperlipidemia, IBS, asthma, migraines, depression, gastroparesis, Tyler's thyroiditis, chronic otitis media of right ear with effusion, right sided sensorineural hearing loss, chronic laryngitis, chronic tinnitus of right ear. Patient is being admitted for IV antibiotics due to otomastoiditis of right ear and has a Groin Abscess, which is concerning due to her being a poorly controlled diabetic. She also was found to have a magnesium of 1.6. Sepsis secondary to otitis media and groin infection Improving. Continue antibiotics, IV vanc and Unasyn and pain control PLAN: 1. Diabetes and Groin Infection management per Medicine Service. 2. Continue antibiotics, IV vanc and Unasyn and pain control 3. Patient would benefit with a RIGHT Myringotomy with Tube Placement. Discussed with Patient. She has had tympanostomy tubes in the RIGHT Ear in the past. IF patient's Diabetes / Glucose is under better control tomorrow - would like to Plan for RIGHT Myringotomy - Under LOCAL - with Tube placement on MONDAY ( 22 OCT 2024). Patient is agreeable. Risks, benefits and expected post=operative Surgery Consent Form obtained and on chart. 4. Will assess patient tomorrow AM and proceed with plan IF Medicine Service agreeable. (2) Right-sided sensorineural hearing loss: Plan: This is Long-Standing since 2020 and her past RIGHT ear surgery. It was present PRIOR to this admission. (3) Tinnitus, right ear: Plan: This is Long-Standing since 2020. It was present PRIOR to this admission. Plan Patient is a 49-year-old female with past medical history of type II DM insulin- dependent, hyperlipidemia, IBS, asthma, migraines, depression, gastroparesis, Tyler's thyroiditis, chronic otitis media of right ear with effusion, right sided sensorineural hearing loss, chronic laryngitis, chronic tinnitus of right ear. Patient is being admitted for IV antibiotics due to otomastoiditis of right ear and has a Groin Abscess, which is concerning due to her being a poorly controlled diabetic. She also was found to have a magnesium of 1.6. Sepsis secondary to otitis media and groin infection Improving. Continue antibiotics, IV vanc and Unasyn and pain control Admission and Anticipated Discharge Date Admission Date: October 18, 2024 Subjective FOR REVIEW: Patient is a 49-year-old female with past medical history of type II DM insulin-dependent, hyperlipidemia, IBS, asthma, migraines, depression, gastroparesis, Tyler's thyroiditis, chronic otitis media of right ear with effusion, right sided sensorineural hearing loss, chronic laryngitis, chronic tinnitus of right ear. Patient is being admitted for IV antibiotics due to otomastoiditis of right ear and has a Groin Abscess, which is concerning due to her being a poorly controlled diabetic. She also was found to have a magnesium of 1.6. TODAY'S BEDSIDE VISIT: Patient is ALERT & ORIENTED. VS - STABLE - NO fevers in 24 hrs. BP = 118 / 63 Pulse = 71 Temp = 36.5 C Resp = 18 NO vertigo. NO fluctuating hearing loss - but RIGHT ear still feels clogged. Patient is sitting up in bed and has finished all her Lunch. No dietary or swallowing issues. Physical Exam Physical Exam: Patient is ALERT & Oriented. Sitting Up in bed and ate a complete Lunch. HEAD: Normocephalic CRANIAL NERVES: CN II - XII Intact NO Facial Weakness FACE: NO Erythema NO Rash Lips Normal EYES: EOMI PERRL Ears: External Ears - Normal - NO swelling, NO erythema Ext Aud. Canals - CLEAR Bilateral - NO discharge. NO swelling. LEFT ear & Mastoid is NORMAL to palpation and inspection. RIGHT side - NO Mastoid Tip findings...(as follows): NO Post-auricular swelling. NO post-auricular erythema. NO post-auricular tenderness to palpation. Tympanic Membranes - Normal LEFT. - intact but RETRACTED RIGHT - NOT inflamed. - NO Erythema of Either Tympanic Membrane. Middle Ears - CLEAR LEFT - SEROUS Effusion on Right - NO pus. NOSE: External Dorsum - NO Deformity Septum - MIDLINE - with a small SPUR to the LEFT |> Turbinate - Normal shape & mucosa - NO Polyps MOUTH: Dentition - Poor Repair - with many missing teeth. Floor of Mouth - CLEAR. NO Edema [place]'s Ducts normal Tongue - NO masses - NO Ulcers. - there is an Anterior Tongue Piercing present. OROPHARYNX: Tonsils Absent Uvula Midline NECK: Trachea Midline NO masses NO adenopathy Results & Data Vital Signs (Past 12 Hours) Vital Signs Temp Pulse Pulse Resp BP Pulse Ox O2 Del Method 10/20/24 11:00 36.5 C 71 18 118/63 97 Nasal Cannula 10/20/24 08:00 36.6 C 70 20 122/69 96 Nasal Cannula 10/20/24 07:03 62 10/20/24 07:03 Nasal Cannula 10/20/24 06:22 69 18 104/70 10/20/24 03:23 36.5 C 60 18 102/67 94 Nasal Cannula O2 Flow Rate 10/20/24 11:00 2 10/20/24 08:00 2 10/20/24 07:03 10/20/24 07:03 2 10/20/24 06:22 10/20/24 03:23 2 Laboratory Results WBC has DECREASED from 11.25 yesterday to 6.91 today. Hgb / Hct = 13.1 / 39.6 PG Care Time/CCT Total # of Minutes Spent Total Time Spent with Patient: Total time spent is greater than 50% in coordination of care (as documented) at patient's floor/unit and/or counseling patient: Coding Level of Care Code 14579 SUB INP/OBS CARE 09/28MIN Diagnoses Chronic otitis media of right ear with effusion H65.491 Sensorineural hearing loss (SNHL) of right ear with unrestricted hearing of left ear H90.41 Contralateral hearing status: unrestricted hearing on contralateral side Tinnitus, right ear H93.11 (2) Right-sided sensorineural hearing loss Contralateral hearing status: unrestricted hearing on contralateral side Qualified Code(s): H90.41 - Sensorineural hearing loss, unilateral, right ear, with unrestricted hearing on the contralateral side"
--- NOTE | 2024-10-20 13:57 | Pharmacy Report ---
Pharmacy PK ABX Note - Date of Service October 20, 2024 - Assessment and Plan Assessment 10/20 * ENT consult with possible myringotomy tube placement on Monday, continuing current coverage. Random vancomycin level this morning 15.1 mcg/ml which predicts achievement of target AUC/ABHISHEK, will continue current dosing. 10/18 * 49 year old F receiving amp/sulbactam and vancomycin for treatment of otomastoiditis and groin abscess. Discussed w Dr. Jensen from [facility] on ASP rounds this AM - agrees with current coverage. * WBC wnl, afebrile * SCr at/near baseline w excellent eCrCL Plan Vancomycin * Loading dose: 2000 mg IV x 1 * Maintenance dose: 1500 mg IV every 12 hours * Regimen is predicted to achieve target AUC/ABHISHEK of 400-600 mg/L.hr * Random level ordered in 2-3 days or with renal function changes Pharmacy will continue to follow and will adjust dose/frequency as necessary. Thank you. Pharmacy has transitioned to AUC monitoring for vancomycin. AUC/ABHISHEK is the preferred PK/PD target and is associated with decreased risk of nephrotoxicity compared to traditional trough targets.
[2024-10-20] MEDS: LORazepam 1 MG TAB PO PRN (20:35)
[2024-10-21 07:19] LABS: Hematocrit (blood only) 37.4 % (37.0-47.0); Hemoglobin 12.6 g/dl (12.0-16.0); Mean Corpuscular Hemoglobin 29.2 pg (25.0-34.0); Mean Corpuscular Hgb Conc 33.7 g/dL (32.0-36.0); Mean Corpuscular Volume 86.6 fL (80.0-100.0); Mean Platelet Volume 9.7 fL (9.4-12.4); Platelet Count 213 K/uL (130-400); RDW Coefficient of Variation 12.5 % (11.5-14.5); RDW Standard Deviation 39.8 fL (36.4-46.3); Red Blood Count 4.32 M/uL (4.20-5.40); White Blood Count 6.93 K/ul (4.8-10.8)
[2024-10-21 07:25] LABS: BUN Creatinine Ratio 33.9 (10-20); Calcium 8.4 mg/dl (8.6-10.3); Creatinine Clr Calc Pharmacy 116.9 ml/min; Potassium 3.7 mmol/L (3.5-5.1)
[2024-10-21] MEDS: LANTUS PER UNIT CHARGE SQ SCH (08:43)
--- NOTE | 2024-10-21 10:29 | Pharmacy Report ---
Pharmacy Glycemic Short Note 2 - Date of Service October 21, 2024 - Glycemic Short BSG Results (Last 24 hours): 10/20/24 10/20/24 10/20/24 11:45 16:23 20:04 Glucose POC Glucose 169 H 89 114 H 10/21/24 10/21/24 06:34 07:25 Glucose 84 POC Glucose 106 H OUTPATIENT ANTIDIABETIC REGIMEN: * Insulin pump (previous settings 1.2 units/hr, CF 29, CR 1:7 per outpatient notes - patient not able to tell me specific settings) * U-500 - 40 units bid - per last Endo note (patient reporting 30-40 units bid, however self adjusts based upon BSG value Notes, frequent hypoglycemia overnight ASSESSMENT: 10/21: * Patient received total of 95 units of insulin yesterday, of which 55 units were Lantus. * Fasting BSG 84 - 106 mg/dL - will scale back slightly on basal this AM as fasting BSG now trending down, will decrease ~10% * Blood sugars continue to improve throughout the day yesterday, will provide looser novolog parameters * DM educator met with patient and patient prefers to go on SQ injections at time of discharge. Will monitor. 10/19/24 * Patient received 55 units of basal yesterday + 105 units of NovoLog carb coverage, while on the insulin drip at rates from 2-10 units/hr, d/t IV Solu- Medrol induced hyperglycemia, given yesterday morning. Blood sugar at goal this morning, overlapped insulin drip with basal insulin, and drip turned off at 1000. * Will continue basal bolus insulin at this time, on type 2 DM diet, no further steroids at this time. 10/18/24 * 49 year old admitted with otomastoiditis of right ear. PMHx significant for type 2 diabetes, hld, ibs, asthma, julissa's, gastroparesis. Pharmacy consulted for glycemic management. Last visit with YAMINI Regan 10/09/24 - at that time she was taking U-500 40 units BID but plan was to switch back to pump once supplies were mailed to her. Patient reports still waiting on insulin pump supplies to come in and also had misplaced some of the supplies for pump. BSGs >400 this AM, confirmed recheck with RN was also >400. Patient did received Solu-Medrol 125 mg iv earlier this AM, likely contributing to hyperglycemia. * Will give IV insulin bolus 0.1 units/kg x 1 now, will give Lantus 40 units x 1 (full weight based stress of 3 dosing) and start novolog. Will likely have scale for Lantus at HS if BSGs continue to be elevated * Lunch BSG unchanged - started insulin infusion. Will have Lantus scale for HS to help with transition off drip PLAN FOR INPATIENT GLYCEMIC CONTROL: * Hold outpatient diabetes medications * Basal insulin * Lantus 50 units daily in AM * Bolus insulin * NovoLog ACHS * CF: 20 mg/dL/units * CR: 1 unit per 6 grams CHO consumed
--- NOTE | 2024-10-21 11:59 | Ears,Nose,Throat Progress Note ---
Date of Service October 21, 2024 Assessment & Plan (1) Serous otitis media: Plan: Patient diabetes improving. RIGHT serous otitis media unchanged. Surgery Time available for RIGHT myringotomy with tympanostomy tube insertion. NPO - from now until procedure completed. Admission and Anticipated Discharge Date Admission Date: October 19, 2024 Physical Exam Physical Exam: RIGHT Middle Ear Effusion unchanged. Results & Data Vital Signs (Past 12 Hours) Vital Signs Temp Pulse Pulse Resp BP Pulse Ox O2 Del Method 10/21/24 07:00 59 L 10/21/24 07:00 36.7 C 60 18 125/70 96 Nasal Cannula 10/21/24 03:19 36.8 C 55 L 16 131/83 94 Nasal Cannula O2 Flow Rate 10/21/24 07:00 10/21/24 07:00 10/21/24 03:19 2 PG Care Time/CCT Total # of Minutes Spent Total Time Spent with Patient: Total time spent is greater than 50% in coordination of care (as documented) at patient's floor/unit and/or counseling patient: Coding Level of Care Code 82096 SUB INP/OBS CARE 09/28MIN Diagnoses Right chronic serous otitis media H65.21 Chronicity: chronic Laterality: right (1) Serous otitis media Chronicity: chronic Laterality: right Qualified Code(s): H65.21 - Chronic serous otitis media, right ear
--- NOTE | 2024-10-21 12:44 | Hospitalist Progress Note ---
Date of Service October 21, 2024 Assessment & Plan (1) Mastoiditis: (2) Hypomagnesemia: (3) Hyperglycemia due to type 2 diabetes mellitus: (4) Cough: (5) Groin abscess: (6) Vomiting and diarrhea: (7) Thyroid nodule: Plan Patient is a 49-year-old female with past medical history of type II DM insulin- dependent, hyperlipidemia, IBS, asthma, migraines, depression, gastroparesis, Tyler's thyroiditis, chronic otitis media of right ear with effusion, right sided sensorineural hearing loss, chronic laryngitis, chronic tinnitus of right ear. Patient is being admitted for IV antibiotics due to otomastoiditis of right ear. She also was found to have a magnesium of 1.6. Sepsis secondary to otitis media and groin infection resolving Continue antibiotics, vanc and Unasyn Patient is planning for surgery either today or tomorrow. Blood sugar is better controlled. #Otitis Media Initially thought to be mastoiditis, however per ENT, after otoscopy, patient found to have serous otitis media Plan is for right myringotomy and tympanostomy Continue antibiotics and pain control appreciate ENT #Hypomagnesemia Replace #Poorly controlled type II DM Patient reports she lost her insulin pump, glucose in the 300's on admission Most recent A1c 12.4 10/09/2024 Noted that patient uses 40 units twice daily through insulin pump during recent diabetes visit Initially started on insulin drip by pharmacy, but has been transitioned to SQ insulin Currently on 55 units Q daily Glargine and meal coverage with Novolog Upon discharge, patient says she prefers injections to insulin pump (she used to be on Tresiba, but it may not be covered by insurance) She may need Lantus pen and aspart pen #Cough/chest pain Patient reports chronic cough acutely worsened x 3 days along with chest heaviness BioFire negative Troponin 2.6, EKG NSR, no ischemic changes Chest CTA negative given IV Solu-Medrol 125 Mg in ED; defer further steroid use DuoNeb every 2 hours as needed Tessalon Perles as needed Tylenol as needed MRSA swab ordered #groin abscess Patient reports left-sided groin abscess for 5 days Patient reports no drainage or IV drug use Coverage with Unasyn and vanc MRSA coverage with vancomycin given frequent ER/hospital visits wound care #vomiting and diarrhea now resolved Patient reports intermittent vomiting and diarrhea x 3 days Does endorse chronic alternating constipation and diarrhea with IBS BioFire negative denies ABD pain Vomiting differential includes but not limited to vestibular cause with mastoiditis, cannabis hyperemesis syndrome, gastritis Zofran as needed slightly dry on admission - BUN/creatinine 27.3 - gentle IVF resuscitation with NSS at 80 mL/hour x 500 mL #thyroid nodule Incidental finding on soft tissue neck CT CT showed mild enlarged right thyroid lobe with few bilateral nodules, ultrasound correlation is needed TSH 10/09/2024 WNL Recommend ultrasound in outpatient setting with PCP Recent diabetes ED's visit notes patient unsure if she has been taking her levothyroxine, most recently prescribed 2021, hold at this time Chronic stable diagnoses: HLDcontinue ASA and atorvastatin AsthmaDuoNeb as above, continue daily inhaler Depression/anxiety continue duloxetine, hydroxyzine, lorazepam, mirtazapine migrainescontinue topiramate GERDcontinue Protonix VTE ppx: SCDs, low risk and able to ambulate Diet: T2DM Dispo: MedSurg, OBS Admission and Anticipated Discharge Date Admission Date: October 19, 2024 Subjective 49 yo female reports no new symptoms. Physical Exam Physical Exam: The patient is awake, alert and oriented 3, lying in bed and in no acute distress. HEENT--PERRL, EOMI, mucous membranes and oropharynx mildly dry Neck--supple. No JVD. No bruits. Thyroid normal, trachea midline, no adenopathy. Heart--normal S1 and S2. No murmurs, rubs or gallops. Lungs--clear bilaterally, no respiratory distress, no accessory muscle use. Abdomen--normal bowel sounds and soft. Extremities--no cyanosis or clubbing. No edema. Results & Data Results & Data Vital Signs (Past 12 Hours) Vital Signs Temp Pulse Pulse Resp BP Pulse Ox O2 Del Method 10/21/24 07:00 59 L 10/21/24 07:00 36.7 C 60 18 125/70 96 Nasal Cannula 10/21/24 03:19 36.8 C 55 L 16 131/83 94 Nasal Cannula O2 Flow Rate 10/21/24 07:00 10/21/24 07:00 10/21/24 03:19 2 PG Care Time/CCT Total # of Minutes Spent Total Time Spent with Patient: Total time spent is greater than 50% in coordination of care (as documented) at patient's floor/unit and/or counseling patient: Coding Level of Care Code 52946 SUB INP/OBS CARE MIN Diagnoses Mastoiditis H70.91 Laterality: right Hypomagnesemia E83.42 Hyperglycemia due to type 2 diabetes mellitus E11.65 Cough R05.9 Groin abscess L02.214 Vomiting and diarrhea R11.10; R19.7 Thyroid nodule E04.1 (1) Mastoiditis Laterality: right Qualified Code(s): H70.91 - Unspecified mastoiditis, right ear
--- NOTE | 2024-10-21 15:22 | Anesthesiology Consultation ---
Date of Service October 21, 2024 Assessment & Plan (1) Encounter for pre-operative examination: Chart Review Chart Review: Acceptable Risk for Surgery and Patient NOT seen in Pre Admission Testing Consults Requested none History Surgery Operation Date: 10/21/24 09:20 Proposed Procedures p Myringotomy, Right Pressure Equalizing Tube Insertion - Torey Davis MD Height/Weight Height: 5 ft 3 in Weight: 93.8 kg Allergies Allergy/AdvReac Type Severity Reaction Status Date / Time adhesive Allergy Intermediate skin Verified 10/09/24 15:56 redness, itchy bee venom protein (honey bee) Allergy Intermediate red Verified 10/09/24 15:56 welts/swelling > bruising citalopram AdvReac Intermediate jaw pain, Verified 10/09/24 15:56 headaches morphine AdvReac Intermediate localized Verified 10/09/24 15:56 reaction, redness/welts due to IV infiltration pollen extracts AdvReac Intermediate itchy Verified 10/09/24 15:56 eyes, scratchy throat, swollen eyes Medications Home Medications Medication Instructions Recorded Confirmed Last Taken Medical Thc 1 dose inhalation DAILY PRN Anxiety 04/05/21 10/18/24 04/15/23 hydroxyzine HCl 50 mg tablet 50 - 100 mg PO HS PRN Sleep 10/14/21 10/18/24 04/15/23 loperamide 2 mg capsule (Imodium 2 mg PO Q6H PRN loose stool #30 11/04/21 10/18/24 04/15/23 A-D) caps levothyroxine 75 mcg tablet 75 mcg PO HS #90 tabs 07/15/22 10/18/24 02/09/24 (Synthroid) epinephrine 0.3 mg/0.3 mL 0.3 mg (0.3 mL) IM DIRECTED PRN 12/02/22 10/18/24 04/15/23 injection, auto-injector (EpiPen) Allergic Reaction #1 ea acetaminophen 500 mg tablet 1,000 mg PO Q6H PRN Pain 03/17/23 10/18/24 04/15/23 (Acetaminophen Extra Strength) cholecalciferol (vitamin D3) 50 100 mcg PO HS 03/17/23 10/18/24 02/09/24 mcg (2,000 unit) capsule (Vitamin D3) cholestyramine (with sugar) 4 gram 4 g PO BID PRN NEEDED for 03/17/23 10/18/24 04/15/23 powder for susp in a packet diarrhea #60 ea diclofenac sodium 1 % topical gel 2 g topical QID PRN Inflammation 03/17/23 10/18/24 04/15/23 #100 grams doxepin 50 mg capsule 50 mg PO HS #30 caps 03/17/23 10/18/24 02/09/24 estradiol 0.01% (0.1 mg/gram) 1 g vaginal 2XWK #42.5 grams 03/17/23 10/18/24 12/29/23 vaginal cream hydroxyzine HCl 10 mg tablet 10 mg PO BID PRN Anxiety 03/17/23 10/18/24 05/16/23 lidocaine 5 % topical patch 1 patch topical DAILY PRN pain #15 03/25/23 10/18/24 04/15/23 ea fluticasone 250 mcg-salmeterol 50 1 inh inhalation BID #60 ea 03/28/23 10/18/24 02/10/24 08:00 mcg/dose blistr powdr for inhalation (Advair Diskus) ipratropium 0.5 mg-albuterol 3 mg 3 ml inhalation Q8H PRN Wheezing 05/12/23 10/18/24 Unknown (2.5 mg base)/3 mL nebulization #180 mL soln lorazepam 1 mg tablet 1 mg PO UD PRN Anxiety 05/13/23 10/18/24 Unknown topiramate 100 mg tablet 100 mg PO UD 05/13/23 10/18/24 02/09/24 pantoprazole 40 mg tablet,delayed 40 mg PO HS GERD 06/08/23 10/18/24 02/09/24 release (Protonix) duloxetine 20 mg capsule,delayed 20 mg PO BID #60 caps 06/12/23 10/18/24 02/10/24 08:00 release azelastine 137 mcg (0.1 %) nasal 2 spray intranasal DAILY PRN 07/05/23 10/18/24 Unknown spray Congestion #30 mL naproxen 500 mg tablet 500 mg PO DAILY PRN DIRECTED 07/05/23 10/18/24 Unknown #30 tabs ondansetron HCl 4 mg tablet 4 mg PO Q8H PRN nausea and 08/10/23 10/18/24 Unknown vomiting #90 tabs albuterol sulfate 90 mcg/actuation 1 inh inhalation QID PRN shortness 09/12/23 10/18/24 Unknown aerosol inhaler of breath or wheezing #8.5 grams albuterol sulfate 1.25 mg/3 mL 1.25 mg (3 mL) inhalation Q4H PRN 09/23/23 10/18/24 Unknown solution for nebulization bronchospasm #75 mL promethazine-DM 6.25 mg-15 mg/5 mL 5 ml PO Q6H PRN cough #200 mL 10/09/23 10/18/24 Unknown oral syrup dicyclomine 20 mg tablet 20 mg PO QID PRN abdominal pain 10/26/23 10/18/24 Unknown #30 tabs cyclobenzaprine 10 mg tablet 10 mg PO UD PRN MUSCLE SPASMS 12/01/23 10/18/24 Unknown metoclopramide HCl 5 mg tablet 5 mg PO BID #28 tabs 12/03/23 10/18/24 02/10/24 08:00 lumateperone 42 mg capsule 42 mg PO HS 12/16/23 10/18/24 02/09/24 (Caplyta) ubrogepant 100 mg tablet (Ubrelvy) 100 mg PO DIRECTED PRN MIGRAINE 12/30/23 10/18/24 Unknown HEADACHES Saccharomyces boulardii 250 mg 500 mg PO HS 02/10/24 10/18/24 02/09/24 capsule (Florastor) aspirin 81 mg tablet,delayed 81 mg PO HS 02/10/24 10/18/24 02/09/24 release benzonatate 200 mg capsule 200 mg PO TID PRN cough #20 caps 02/10/24 10/18/24 Unknown solifenacin 5 mg tablet (Vesicare) 5 mg PO UD 02/10/24 10/18/24 02/09/24 dexamethasone 0.5 mg/5 mL oral 0.5 mg (5 mL) PO BID #240 mL 07/29/24 10/18/24 Unknown solution blood-glucose sensor (Dexcom G7 10/09/24 10/09/24 Unknown Sensor device) Novolog U-100 Insulin aspart 100 80 unit (0.8 mL) continuous 10/10/24 10/18/24 Unknown unit/mL subcutaneous solution subcutaneous infusion DAILY 90 (insulin aspart U-100) days #80 mL atorvastatin 40 mg tablet 40 mg PO HS #90 tabs 10/10/24 10/18/24 Unknown blood sugar diagnostic (Accu-Chek #300 ea 10/10/24 10/10/24 Unknown Guide test strips) insulin regular hum U-500 conc 500 80 unit (0.16 mL) subcut QPM 90 10/10/24 10/18/24 Unknown unit/mL(3 mL) subcut pen days #18 mL pen needle,diabetic dual safty 30 #100 ea 10/10/24 10/10/24 Unknown gauge x 3/16" pregabalin 100 mg capsule 100 mg PO BID 30 days #60 caps 10/10/24 10/18/24 Unknown lancets (Accu-Chek Softclix #100 ea 10/11/24 Unknown Lancets) fluconazole 150 mg tablet 150 mg PO UD 10/18/24 10/18/24 Unknown mirtazapine 30 mg tablet 30 mg PO HS 10/18/24 10/18/24 Unknown Active Medications Generic Name Dose Route Start Last Admin Trade Name Freq PRN Reason Stop Dose Admin Aspirin 81 mg 10/18/24 21:00 10/20/24 20:32 Aspirin 81 Mg Ectab PO 11/17/24 20:59 81 mg HS BRANDON Administration Atorvastatin Calcium 40 mg 10/18/24 21:00 10/20/24 20:32 Atorvastatin 40 Mg Tab PO 11/17/24 20:59 40 mg HS BRANDON Administration Doxepin HCl 50 mg 10/18/24 21:00 10/20/24 20:32 Doxepin Hcl 50 Mg Capsule PO 11/17/24 20:59 50 mg HS BRANDON Administration Duloxetine HCl 20 mg 10/18/24 09:45 10/19/24 09:50 Duloxetine Hcl 20 Mg Cap PO 11/17/24 09:44 20 mg BID BRANDON Administration Fluticasone/Vilanterol 1 puffs 10/18/24 09:45 10/21/24 08:46 Fluticasone/Vilanterol 200/25mcg 14 Puffs/Inhaler INH 11/17/24 09:44 1 puffs DAILY BRANDON Administration Ampicillin Sodium/Sulbactam Sodium 3,000 mg in 100 mls @ 200 mls/hr 10/18/24 14:00 10/21/24 14:24 Unasyn IV 10/28/24 13:59 Infused Q6H BRANDON Infusion Vancomycin HCl 1,500 mg/ 530 mls @ 200 mls/hr 10/18/24 21:00 10/21/24 12:12 Sodium Chloride IV 10/25/24 20:59 Infused Q12 BRANDON Infusion Insulin Aspart 0 units 10/19/24 11:30 10/21/24 11:56 Insulin Aspart Per Unit Charge SC 11/18/24 11:29 10 units ACHS BRANDON Administration Insulin Glargine 50 units 10/21/24 09:00 10/21/24 08:43 Lantus Per Unit Charge SQ 11/20/24 08:59 50 units DAILY BRANDON Administration Lorazepam 1 mg 10/18/24 08:36 10/20/24 20:35 Lorazepam 1 Mg Tab PO 11/17/24 08:35 1 mg BID PRN Administration Anxiety Metoclopramide HCl 5 mg 10/18/24 09:45 10/21/24 08:44 Metoclopramide Hcl 5 Mg Tablet PO 11/17/24 09:44 5 mg BID BRANDON Administration Midodrine 5 mg 10/19/24 17:00 10/21/24 11:56 Midodrine Hcl 2.5 Mg Tab PO 11/18/24 16:59 5 mg TID@0800,1200,1700 BRANDON Administration Mirtazapine 30 mg 10/18/24 21:00 10/20/24 20:34 Mirtazapine Soltab 15 Mg PO 11/17/24 20:59 30 mg HS BRANDON Administration Miscellaneous 1 each 10/18/24 16:00 10/21/24 09:53 Order Awaiting Action -Caplyta (Lumateperone) 42 Mg Capsule N/A 11/17/24 15:59 Not Given QS BRANDON Ondansetron HCl 4 mg 10/18/24 06:05 10/18/24 20:07 Ondansetron Inj 2 Mg/Ml 2 Ml Vial IV 11/17/24 06:04 4 mg Q6H PRN Administration Nausea And Vomiting Oxybutynin Chloride 5 mg 10/18/24 21:00 10/20/24 20:34 Oxybutynin Chloride Xl 5 Mg Tabcr PO 11/17/24 20:59 5 mg HS BRANDON Administration Pantoprazole Sodium 40 mg 10/18/24 21:00 10/20/24 20:35 Pantoprazole 40 Mg Tab PO 11/17/24 20:59 40 mg HS BRANDON Administration Pregabalin 200 mg 10/18/24 22:45 10/20/24 20:35 Pregabalin 100 Mg Cap PO 11/17/24 22:44 200 mg HS BRANDON Administration Topiramate 100 mg 10/18/24 21:00 10/20/24 20:35 Topiramate 100 Mg Tab PO 11/17/24 20:59 100 mg HS BRANDON Administration Past Medical History Medical History (Updated 10/21/24 @ 15:25 by Mick Monroe MD) Diabetic peripheral neuropathy associated with type 2 diabetes mellitus H/O TIA (transient ischemic attack) and stroke Maybe or complex migraine; does have lesions on MRI Asthma, moderate persistent Hypothyroidism Obstructive sleep apnea Non-compliant with CPAP, could not tolerate Eustachian tube dysfunction Mastoid disorder Dysphagia Endometriosis H/O concussion Incontinence Urinary urgency Hematuria Yeast dermatitis Degenerative joint disease of left hip Sensorineural hearing loss of both ears Kidney stones Post traumatic stress disorder Chronic sinusitis Diverticulosis (02/13/12) Fatty infiltration of liver Insomnia Internal hemorrhoids Sciatica Past Family History Family History Father Myocardial infarction Prostate cancer Diabetes Hypertension Biliary liver cirrhosis Mother , 2008 Myocardial infarction Dementia Diabetes Hypertension Other No significant family history Denies family history of Ovarian cancer Crohn's disease Breast cancer Lung cancer Colorectal cancer Ulcerative colitis Past Surgical History Surgical History S/P tympanoplasty right ([address] Plata) S/P epidural steroid injection History of colonoscopy History of esophagogastroduodenoscopy (EGD) EGD (02/06/20): MAC at [facility] S/P laparoscopic assisted vaginal hysterectomy (LAVH) History of anesthesia reaction "Slow to wake" History of myringotomy bilateral tubes (multiple) Right myringotomy tube (04/09/18): LMA#4 at [facility] (weight at time was 118kg) History of knee surgery Right History of arthroscopy of right shoulder History of tubal ligation History of bladder surgery suburethral sling with hysterectomy (2009) History of tooth extraction History of tonsillectomy History of cholecystectomy Social History Smoking Status: Never smoker tobacco type: cigarettes Do You Dip or Chew Tobacco: No Hx Alcohol Use: Yes Alcohol type: hard liquor alcohol intake frequency: holidays/special occasions only Hx Substance Use: Yes substance use type: marijuana Substance Use Type Other:: Medical marijuana. Last Used Substance Other:: Last night, stated uses about once a day. Physical Exam Vital Signs Last Vital Signs Temp 36.6 C 10/21/24 11:00 Pulse 70 10/21/24 11:00 Resp 16 10/21/24 11:00 BP 120/63 10/21/24 11:00 Pulse Ox 96 10/21/24 11:00 O2 Del Method Nasal Cannula 10/21/24 11:00 O2 Flow Rate 2 10/21/24 03:19 Testing Laboratory Results 10/21/24 06:34 10/21/24 06:34 10/21/24 10/21/24 11:30 07:25 POC Glucose 170 H 106 H Electrocardiogram Date: 10/18/24 DICTATED BY: Robb Barajas MD Test Reason : Blood Pressure : */* mmHG Vent. Rate : 70 BPM Atrial Rate : 70 BPM P-R Int : 158 ms QRS Dur : 90 ms QT Int : 416 ms P-R-T Axes : 29 -46 36 degrees QTcB Int : 449 ms Normal sinus rhythm with sinus arrhythmia Left anterior fascicular block Abnormal ECG When compared with ECG of 12-Aug-2024 11:53, Left anterior fascicular block is now Present Confirmed by Robb Barajas ([id number]) on 10/18/2024 12:44:45 PM
[2024-10-21] MEDS ORDERED: LIDOCAINE 2% 2 ML VIAL/AMP(20MG/ML) INFIL ONE (15:34)
[2024-10-21] MEDS ORDERED: DEXAMETHASONE SOD INJ 4 MG/ML VIAL ONE (15:34)
[2024-10-21] MEDS ORDERED: fentaNYL citrate PF 100 MCG/2 ML VIAL ONE (15:34)
[2024-10-21] MEDS ORDERED: MIDAZOLAM HCL 1 MG/ML 2ML VIAL ONE (15:34)
[2024-10-21] MEDS ORDERED: PROPOFOL IV EMULSION 10 MG/ML 20 ML VIAL IV ONE (15:34)
[2024-10-21] MEDS ORDERED: ONDANSETRON INJ 2 MG/ML 2 ML VIAL ONE (15:34)
[2024-10-21] MEDS: LIDOCAINE 1%/EPINEPHRINE 1:100,000 50 ML VIAL ONE (17:15)
[2024-10-21] MEDS: OFLOXACIN 0.3% 75 DROPS/5 ML BTL ONE (17:16)
[2024-10-21] MEDS: OXYMETAZOLINE 0.05% 30 ML BTL ONE (17:16)
--- NOTE | 2024-10-21 17:44 | OB/GYN Consultation ---
Date of Consultation October 21, 2024 Assessment & Plan (1) Vulvar lesion: This is small sebceous cyst, likely from rubbing. Recommend warm compresses, which may allow area to drain spontaneously or resolve. Current abx should help too. Please re-contact us with any other cable cutter and swager concerns. Patient is long overdue for routine cable cutter and swager care if she chooses to schedule. History of Present Illness Reason for Consultation: groin abscess concern Requesting Physician: Dr. Jaffe Attending Physician: Gallo Jaffe History of Present Illness 49yo with cc of her concern for vulvar lesion that I am asked to see on consult by Dr. Jaffe. The patient notes lesion has been there for about one week. It is quarter sized, it is tender. At one point she thinks it has bled. She says the area is on the left side. She is admitted for mastoiditis and ?groin abscess which i presume is the con cern for this lesion? She has had intermittent cable cutter and swager care with us, but not since 2022 and no recent annual cable cutter and swager care. Allergies Allergy/AdvReac Type Severity Reaction Status Date / Time adhesive Allergy Intermediate skin Verified 10/09/24 15:56 redness, itchy bee venom protein (honey bee) Allergy Intermediate red Verified 10/09/24 15:56 welts/swelling > bruising citalopram AdvReac Intermediate jaw pain, Verified 10/09/24 15:56 headaches morphine AdvReac Intermediate localized Verified 10/09/24 15:56 reaction, redness/welts due to IV infiltration pollen extracts AdvReac Intermediate itchy Verified 10/09/24 15:56 eyes, scratchy throat, swollen eyes Home Medications Medication Instructions Recorded Confirmed Type Medical Thc 1 dose inhalation DAILY PRN Anxiety 04/05/21 10/18/24 History hydroxyzine HCl 50 mg tablet 50 - 100 mg PO HS PRN Sleep 10/14/21 10/18/24 History loperamide 2 mg capsule (Imodium 2 mg PO Q6H PRN loose stool #30 11/04/21 10/18/24 Rx A-D) caps levothyroxine 75 mcg tablet 75 mcg PO HS #90 tabs 07/15/22 10/18/24 Rx (Synthroid) epinephrine 0.3 mg/0.3 mL 0.3 mg (0.3 mL) IM DIRECTED PRN 12/02/22 10/18/24 Rx injection, auto-injector (EpiPen) Allergic Reaction #1 ea acetaminophen 500 mg tablet 1,000 mg PO Q6H PRN Pain 03/17/23 10/18/24 History (Acetaminophen Extra Strength) cholecalciferol (vitamin D3) 50 100 mcg PO HS 03/17/23 10/18/24 History mcg (2,000 unit) capsule (Vitamin D3) cholestyramine (with sugar) 4 gram 4 g PO BID PRN NEEDED for 03/17/23 10/18/24 Rx powder for susp in a packet diarrhea #60 ea diclofenac sodium 1 % topical gel 2 g topical QID PRN Inflammation 03/17/23 10/18/24 Rx #100 grams doxepin 50 mg capsule 50 mg PO HS #30 caps 03/17/23 10/18/24 Rx estradiol 0.01% (0.1 mg/gram) 1 g vaginal 2XWK #42.5 grams 03/17/23 10/18/24 Rx vaginal cream hydroxyzine HCl 10 mg tablet 10 mg PO BID PRN Anxiety 03/17/23 10/18/24 History lidocaine 5 % topical patch 1 patch topical DAILY PRN pain #15 03/25/23 10/18/24 Rx ea fluticasone 250 mcg-salmeterol 50 1 inh inhalation BID #60 ea 03/28/23 10/18/24 Rx mcg/dose blistr powdr for inhalation (Advair Diskus) ipratropium 0.5 mg-albuterol 3 mg 3 ml inhalation Q8H PRN Wheezing 05/12/23 10/18/24 Rx (2.5 mg base)/3 mL nebulization #180 mL soln lorazepam 1 mg tablet 1 mg PO UD PRN Anxiety 05/13/23 10/18/24 History topiramate 100 mg tablet 100 mg PO UD 05/13/23 10/18/24 History pantoprazole 40 mg tablet,delayed 40 mg PO HS GERD 06/08/23 10/18/24 History release (Protonix) duloxetine 20 mg capsule,delayed 20 mg PO BID #60 caps 06/12/23 10/18/24 Rx release azelastine 137 mcg (0.1 %) nasal 2 spray intranasal DAILY PRN 07/05/23 10/18/24 Rx spray Congestion #30 mL naproxen 500 mg tablet 500 mg PO DAILY PRN DIRECTED 07/05/23 10/18/24 Rx #30 tabs ondansetron HCl 4 mg tablet 4 mg PO Q8H PRN nausea and 08/10/23 10/18/24 Rx vomiting #90 tabs albuterol sulfate 90 mcg/actuation 1 inh inhalation QID PRN shortness 09/12/23 10/18/24 Rx aerosol inhaler of breath or wheezing #8.5 grams albuterol sulfate 1.25 mg/3 mL 1.25 mg (3 mL) inhalation Q4H PRN 09/23/23 10/18/24 Rx solution for nebulization bronchospasm #75 mL promethazine-DM 6.25 mg-15 mg/5 mL 5 ml PO Q6H PRN cough #200 mL 10/09/23 10/18/24 Rx oral syrup dicyclomine 20 mg tablet 20 mg PO QID PRN abdominal pain 10/26/23 10/18/24 Rx #30 tabs cyclobenzaprine 10 mg tablet 10 mg PO UD PRN MUSCLE SPASMS 12/01/23 10/18/24 History metoclopramide HCl 5 mg tablet 5 mg PO BID #28 tabs 12/03/23 10/18/24 Rx lumateperone 42 mg capsule 42 mg PO HS 12/16/23 10/18/24 History (Caplyta) ubrogepant 100 mg tablet (Ubrelvy) 100 mg PO DIRECTED PRN MIGRAINE 12/30/23 10/18/24 History HEADACHES Saccharomyces boulardii 250 mg 500 mg PO HS 02/10/24 10/18/24 History capsule (Florastor) aspirin 81 mg tablet,delayed 81 mg PO HS 02/10/24 10/18/24 History release benzonatate 200 mg capsule 200 mg PO TID PRN cough #20 caps 02/10/24 10/18/24 Rx solifenacin 5 mg tablet (Vesicare) 5 mg PO UD 02/10/24 10/18/24 History dexamethasone 0.5 mg/5 mL oral 0.5 mg (5 mL) PO BID #240 mL 07/29/24 10/18/24 Rx solution blood-glucose sensor (Dexcom G7 10/09/24 10/09/24 History Sensor device) Novolog U-100 Insulin aspart 100 80 unit (0.8 mL) continuous 10/10/24 10/18/24 Rx unit/mL subcutaneous solution subcutaneous infusion DAILY 90 (insulin aspart U-100) days #80 mL atorvastatin 40 mg tablet 40 mg PO HS #90 tabs 10/10/24 10/18/24 Rx blood sugar diagnostic (Accu-Chek #300 ea 10/10/24 10/10/24 Rx Guide test strips) insulin regular hum U-500 conc 500 80 unit (0.16 mL) subcut QPM 90 10/10/24 10/18/24 Rx unit/mL(3 mL) subcut pen days #18 mL pen needle,diabetic dual safty 30 #100 ea 10/10/24 10/10/24 Rx gauge x 3/16" pregabalin 100 mg capsule 100 mg PO BID 30 days #60 caps 10/10/24 10/18/24 Rx lancets (Accu-Chek Softclix #100 ea 10/11/24 Rx Lancets) fluconazole 150 mg tablet 150 mg PO UD 10/18/24 10/18/24 History mirtazapine 30 mg tablet 30 mg PO HS 10/18/24 10/18/24 History Patient History Medical History (Updated 10/21/24 @ 17:40 by Patricia Frost MD, FACOG) Diabetic peripheral neuropathy associated with type 2 diabetes mellitus H/O TIA (transient ischemic attack) and stroke Maybe or complex migraine; does have lesions on MRI Asthma, moderate persistent Hypothyroidism Obstructive sleep apnea Non-compliant with CPAP, could not tolerate Eustachian tube dysfunction Mastoid disorder Dysphagia Endometriosis H/O concussion Incontinence Urinary urgency Hematuria Yeast dermatitis Degenerative joint disease of left hip Sensorineural hearing loss of both ears Kidney stones Post traumatic stress disorder Chronic sinusitis Diverticulosis (02/13/12) Fatty infiltration of liver Insomnia Internal hemorrhoids Sciatica Surgical History S/P tympanoplasty right ([address] Plata) S/P epidural steroid injection History of colonoscopy History of esophagogastroduodenoscopy (EGD) EGD (02/06/20): MAC at [facility] S/P laparoscopic assisted vaginal hysterectomy (LAVH) History of anesthesia reaction "Slow to wake" History of myringotomy bilateral tubes (multiple) Right myringotomy tube (04/09/18): LMA#4 at [facility] (weight at time was 118kg) History of knee surgery Right History of arthroscopy of right shoulder History of tubal ligation History of bladder surgery suburethral sling with hysterectomy (2009) History of tooth extraction History of tonsillectomy History of cholecystectomy Family History Father Myocardial infarction Prostate cancer Diabetes Hypertension Biliary liver cirrhosis Mother , 2008 Myocardial infarction Dementia Diabetes Hypertension Other No significant family history Denies family history of Ovarian cancer Crohn's disease Breast cancer Lung cancer Colorectal cancer Ulcerative colitis Social History Smoking Status: Never smoker Tobacco Type: E-cigarettes / Vaping Second Hand Exposure: No; Do You Dip or Chew Tobacco: No; Tobacco Cessation Education Requested by Patient: No Hx Alcohol Use: Yes Alcohol type: hard liquor Alcohol Intake Frequency: Monthly or Less Hx Substance Use: Yes Prescribed Medications: Marijuana Last Used Substance Other:: Last night, stated uses about once a day. Substance Use Type Other:: Medical marijuana. 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 caffeine: Yes Dental Care, Regularly: Yes Physical Activity Frequency: Does not Exercise Seatbelt Use: always Sunscreen Use: Yes Assistive Devices: Cane and Walker Review of Systems Constitutional: as per Subjective / HPI Physical Exam Constitutional: WD/WN, vitals as above Genitourinary: perineum exam, left buttock near thigh fold, 5mm skin lesion likely sebaceous cyst, no erythema. non tender to palpation. Results & Data Vital Signs (Past 12 Hours) Vital Signs Temp Pulse Pulse Resp BP Pulse Ox O2 Del Method 10/21/24 16:15 97.9 F 59 L 20 135/82 95 Room Air 10/21/24 11:00 97.9 F 70 16 120/63 96 Nasal Cannula 10/21/24 07:00 59 L 10/21/24 07:00 98.1 F 60 18 125/70 96 Nasal Cannula PG Care Time/CCT Total # of Minutes Spent Total Time Spent with Patient: Total time spent is greater than 50% in coordination of care (as documented) at patient's floor/unit and/or counseling patient: Coding Level of Care Code 68838 IN/OBS CONSULT LVL 2,35M Diagnoses Vulvar lesion N90.89
--- NOTE | 2024-10-21 20:40 | Post Operative Brief Note ---
PG Immediate Post Op with CF Date of Surgery October 21, 2024 Pre & Post Diagnosis Brief Post-Operative Note [facility] Operation Date: 10/21/24 09:20 Pre-OP Dx: Chronic RIGHT Serous Otitis Media 2. RIGHT Eustachian Tube Dysfunction 3. Mixed Hearing Loss. Post-OP Dx: Same I identified the patient and participated in the time-out.: Yes Procedure PROCEDURE: RIGHT MYRINGOTOMY WITH TYMPANOSTOMY TUBE INSERTION Surgeon: Torey Davis MD, FACS Anesthesia: Monitored Anesthesia Care with Local: 1.0 ml of 1% Lidocaine with 1/200,000 epinephrine injected in the four quadrants of the external canal. . FINDINGS: RIGHT Serous Otitis Media Device: Bruno Activent Tube - 1.27 mm I.D. . COMPLICATIONS: NONE CONDITION: Patient tolerated the procedure well and remained stable. PLAN: Patient transferred to Hospital Bed and taken to PACU in Stable condition. Surgeon Torey Davis MD, FACS [employer] Teacher None. Estimated Blood Loss 0 Findings Consistent with Post-Op Diagnosis Thick Mucoid Serous Otitis Media. No purrulence. Fluids 100 ml Cystalloid IV solution. Specimens Specimen Description: None. Anesthesia Type MAC Complications None. Disposition Accompanied Patient To Recovery: Yes
[2024-10-21] MEDS: LIDOCAINE 1%/EPINEPHRINE 1:100,000 50 ML VIAL INJ ONE (20:48)
[2024-10-21] MEDS: OFLOXACIN 0.3% 75 DROPS/5 ML BTL OP ONE (20:50)
--- NOTE | 2024-10-21 20:57 | Anesthesiology Progress Note ---
Date of Service October 21, 2024 Anesthesia Post Procedure Vital Signs Vital Signs: Temp Pulse Pulse Resp BP Pulse Ox O2 Del Method 10/21/24 19:42 36.7 C 66 18 144/83 H 93 Room Air 10/21/24 16:15 36.6 C 59 L 20 135/82 95 Room Air 10/21/24 13:00 55 L 10/21/24 11:00 36.6 C 70 16 120/63 96 Nasal Cannula 10/21/24 07:00 59 L 10/21/24 07:00 36.7 C 60 18 125/70 96 Nasal Cannula 10/21/24 03:19 36.8 C 55 L 16 131/83 94 Nasal Cannula 10/20/24 23:16 36.8 C 69 18 122/79 94 Nasal Cannula 10/20/24 23:00 68 O2 Flow Rate 10/21/24 19:42 10/21/24 16:15 10/21/24 13:00 10/21/24 11:00 10/21/24 07:00 10/21/24 07:00 10/21/24 03:19 2 10/20/24 23:16 2 10/20/24 23:00 Pain Intensity Head: Pain Intensity: 6 Transfer of Care Handoff Completed per policy Notes Mental Status: alert / awake / arousable and participated in evaluation Patient Amnestic to Procedure: Yes Nausea / Vomiting: adequately controlled Pain: adequately controlled Airway Patency, RR, SpO2: stable & adequate BP & HR: stable & adequate Hydration State: stable & adequate Anesthetic Complications: no major complications apparent and Pt Satisfied with anesthetic care
--- NOTE | 2024-10-21 21:03 | Operative Report ---
PG Post Operative Report Pre & Post Diagnosis Operation Date: 10/21/24 09:20 Pre-Op Diagnosis: Chronic Serous Right Otitis Media Eustachian Tube Dysfunction Post-Op Diagnosis: Chronic Serous Right Otitis Media Eustachian Tube Dysfunction I identified the patient and participated in the time-out.: Yes Procedure Operation Date: 10/21/24 09:20 Actual Procedures p Myringotomy, Right Pressure Equalizing Tube Insertion(Right) - Torey Davis MD Surgeon Torey Davis MD, FACS [employer] None. Estimated Blood Loss 0 Findings Consistent with Post-Op Diagnosis Thick Mucoid Serous Effusion of the RIGHT Middle Ear Fluids 100 ml crystalloid fluid IV Specimens None. Drains A Bruno Activent Tympanostomy Tube 1.27 mm I.D. Anesthesia Type MAC Complications None. Disposition Accompanied Patient To Recovery: Yes Indications Patient is a 49-year-old female with past medical history of type II DM insulin- dependent, hyperlipidemia, IBS, asthma, migraines, depression, gastroparesis, Tyler's thyroiditis, chronic otitis media of right ear with effusion, right sided sensorineural hearing loss, chronic laryngitis, chronic tinnitus of right ear. Patient is being admitted for IV antibiotics due to otomastoiditis of right ear and has a Groin Abscess, which is concerning due to her being a poorly controlled diabetic. Description of Procedure Surgeon: Torey Davis MD FACS Supervising anesthesiologist: Mick Cage MD Operation: The patient was brought to the operating room and transferred to the operating table in the supine position. The patient identification correct site and surgical safety timeout checklist was completed with IR operating team. With all in agreement for the safety timeout monitored anesthesia care was then begun. The patient's head was turned gently towards the left to place the right ear in surgical position. Isopropyl alcohol wipes within used to wipe the external ear external auditory canal meatus, and then sterile draping was then applied. 0.75 mL of 1% lidocaine with 1 200,000 epinephrine solution was infiltrated in four-quadrant injection at the right external auditory meatus. Once completed isopropyl alcohol was then placed in the external auditory canal and using the operating microscope and speculum the isopropyl alcohol was then suctioned and cleared to sterilize the canal but also loosen the cerumen and old skin present. This was then gently removed to expose the external auditory canal and tympanic membrane of the right ear. Additional 1 mL of isopropyl alcohol was placed in the external auditory canal and then suction dried to s terilize the canal from the meatus down to the tympanic membrane. With use of the operating microscope and a myringotomy blade a radial incision was placed in the anterior-inferior quadrant of the tympanic membrane. Thick mucoid serous effusion was encountered and with gentle suctioning sufficient amount was able to be removed so there was patency of the myringotomy incision and opportunity to place the tympanostomy tube. An [facility] collar-button 1.27 mm inner diameter tympanostomy tube was inserted without difficulty. 5 drops of ofloxacin 0.3% ophthalmic solution was placed in the external auditory canal to help maintain patency of the tympanostomy tube. A cotton-ball was placed at the external auditory meatus and then the patient aroused from the monitored anesthesia care. The patient was then transferred from the operating table to the hospital bed and then taken to the postanesthesia care unit under monitored conditions. Estimated blood loss: Less than 1 cc. Fluids: 100 mL of crystalloid solution. Complications: None Findings: Thick mucoid serous effusion without evidence of purulence in the middle ear. No signs of cholesteatoma. Condition: The patient was transferred from the operating table to the hospital bed and taken to the postanesthesia care unit in stable condition. I attest to the content of the Intraoperative Record and any orders documented therein. I performed the procedure and was present for the entirety of the operation. Torey Davis MD, FACS.
[2024-10-22 06:38] LABS: Hematocrit (blood only) 36.9 % (37.0-47.0); Hemoglobin 12.3 g/dl (12.0-16.0); Mean Corpuscular Hemoglobin 28.7 pg (25.0-34.0); Mean Corpuscular Hgb Conc 33.3 g/dL (32.0-36.0); Platelet Count 197 K/uL (130-400); RDW Coefficient of Variation 12.7 % (11.5-14.5); RDW Standard Deviation 39.4 fL (36.4-46.3); Red Blood Count 4.29 M/uL (4.20-5.40)
[2024-10-22 07:08] LABS: BUN Creatinine Ratio 30.5 (10-20); C Reactive Protein 0.54 mg/dl (0-0.5); Calcium 8.3 mg/dl (8.6-10.3); Creatinine Clr Calc Pharmacy 124.6 ml/min; Potassium 3.6 mmol/L (3.5-5.1)
--- NOTE | 2024-10-22 08:22 | Ears,Nose,Throat Progress Note ---
Date of Service October 22, 2024 Assessment & Plan (1) Chronic otitis media of right ear with effusion: Plan: Improving with placement of RIGHT PE Tube. 1. Would continue Ofloxacin 0.3% or Cipro Otic Drops - 5 drops in the RIGHT Ear BID x 5 Days, then STOP. 2. Follow-Up in ENT Clinic in 6 weeks when Discharged to home. (2) Mixed conductive and sensorineural hearing loss of right ear with unrestricted hearing of left ear: Plan: Present since 2017. Admission and Anticipated Discharge Date Admission Date: October 19, 2024 Subjective Patient is S/P RIGHT myringotomy and tympanostomy Tube insertion last night. NO complications. Doing well. VS Stable - AFEBRILE. RIGHT ear feeling better. RIGHT Ear hearing is Subjectively BETTER. Physical Exam Physical Exam: RIGHT Activent Bruno Tube in proper position. RIGHT Middle ear Mucoid Effusion is clearing. Results & Data Vital Signs (Past 12 Hours) Vital Signs Temp Pulse Pulse Resp BP Pulse Ox O2 Del Method 10/22/24 07:05 36.6 C 55 L 18 114/78 95 Room Air 10/22/24 03:05 36.6 C 59 L 16 121/79 92 Room Air 10/21/24 22:58 60 10/21/24 22:40 36.4 C L 54 L 18 143/90 H 98 Room Air 10/21/24 21:53 Nasal Cannula 10/21/24 21:24 36.9 C 57 L 18 129/83 97 Nasal Cannula 10/21/24 21:05 36.5 C 56 L 12 125/73 96 Nasal Cannula 10/21/24 20:55 57 L 20 125/75 93 Oxymask 10/21/24 20:45 36.2 C L 64 16 117/70 96 Oxymask O2 Flow Rate 10/22/24 07:05 10/22/24 03:05 10/21/24 22:58 10/21/24 22:40 10/21/24 21:53 2 10/21/24 21:24 2 10/21/24 21:05 4 10/21/24 20:55 4 10/21/24 20:45 6 Laboratory Results WBC = 6.4 PG Care Time/CCT Total # of Minutes Spent Total Time Spent with Patient: Total time spent is greater than 50% in coordination of care (as documented) at patient's floor/unit and/or counseling patient: Coding Level of Care Code None Diagnoses Chronic otitis media of right ear with effusion H65.491 Mixed conductive and sensorineural hearing loss of right ear with unrestricted hearing of left ear H90.71 Comment Post Operative Visit.
[2024-10-22] MEDS: LANTUS PER UNIT CHARGE SQ SCH (08:33)
[2024-10-22] MEDS: OFLOXACIN 0.3% 75 DROPS/5 ML BTL OTR SCH (08:38)
[2024-10-22] MEDS: MECLIZINE HCL 25 MG TAB PO STA (08:49)
[2024-10-22] MEDS: BENZONATATE 100 MG CAPSULE PO PRN (08:50)
--- NOTE | 2024-10-22 22:22 | Hospitalist Progress Note ---
Date of Service October 22, 2024 Assessment & Plan (1) Mastoiditis: (2) Hypomagnesemia: (3) Hyperglycemia due to type 2 diabetes mellitus: (4) Cough: (5) Groin abscess: (6) Vomiting and diarrhea: (7) Thyroid nodule: Plan Patient is a 49-year-old female with past medical history of type II DM insulin- dependent, hyperlipidemia, IBS, asthma, migraines, depression, gastroparesis, Tyler's thyroiditis, chronic otitis media of right ear with effusion, right sided sensorineural hearing loss, chronic laryngitis, chronic tinnitus of right ear. Patient is being admitted for IV antibiotics due to otomastoiditis of right ear. She also was found to have a magnesium of 1.6. Sepsis secondary to otitis media and groin infection resolving Continue antibiotics, vanc and Unasyn Patient is planning for surgery either today or tomorrow. Blood sugar is better controlled. #Otitis Media Initially thought to be mastoiditis, however per ENT, after otoscopy, patient found to have serous otitis media Plan is for right myringotomy and tympanostomy Continue antibiotics and pain control appreciate ENT Now with vertigo. added meclizine. will monitor her symptoms. #Hypomagnesemia Replace #Poorly controlled type II DM Patient reports she lost her insulin pump, glucose in the 300's on admission Most recent A1c 12.4 10/09/2024 Noted that patient uses 40 units twice daily through insulin pump during recent diabetes visit Initially started on insulin drip by pharmacy, but has been transitioned to SQ insulin Currently on 55 units Q daily Glargine and meal coverage with Novolog Upon discharge, patient says she prefers injections to insulin pump (she used to be on Tresiba, but it may not be covered by insurance) She may need Lantus pen and aspart pen appreciate pharmacy input. #Cough/chest pain Patient reports chronic cough acutely worsened x 3 days along with chest heav iness BioFire negative Troponin 2.6, EKG NSR, no ischemic changes Chest CTA negative given IV Solu-Medrol 125 Mg in ED; defer further steroid use DuoNeb every 2 hours as needed Tessalon Perles as needed Tylenol as needed MRSA swab ordered #groin abscess Patient reports left-sided groin abscess for 5 days Patient reports no drainage or IV drug use Coverage with Unasyn and vanc MRSA coverage with vancomycin given frequent ER/hospital visits wound care #vomiting and diarrhea now resolved Patient reports intermittent vomiting and diarrhea x 3 days Does endorse chronic alternating constipation and diarrhea with IBS BioFire negative denies ABD pain Vomiting differential includes but not limited to vestibular cause with mastoiditis, cannabis hyperemesis syndrome, gastritis Zofran as needed slightly dry on admission - BUN/creatinine 27.3 - gentle IVF resuscitation with NSS at 80 mL/hour x 500 mL #thyroid nodule Incidental finding on soft tissue neck CT CT showed mild enlarged right thyroid lobe with few bilateral nodules, ultrasound correlation is needed [facility] 10/09/2024 WNL Recommend ultrasound in outpatient setting with PCP Recent diabetes ED's visit notes patient unsure if she has been taking her levothyroxine, most recently prescribed 2021, hold at this time Chronic stable diagnoses: HLDcontinue ASA and atorvastatin AsthmaDuoNeb as above, continue daily inhaler Depression/anxiety continue duloxetine, hydroxyzine, lorazepam, mirtazapine migrainescontinue topiramate GERDcontinue Protonix VTE ppx: SCDs, low risk and able to ambulate Diet: T2DM Dispo: MedSurg, OBS Admission and Anticipated Discharge Date Admission Date: October 19, 2024 Subjective Patient is complaining of vertigo this AM. Physical Exam Physical Exam: The patient is awake, alert and oriented 3, lying in bed and in no acute distress. HEENT--PERRL, EOMI, mucous membranes and oropharynx mildly dry Neck--supple. No JVD. No bruits. Thyroid normal, trachea midline, no adenopathy. Heart--normal S1 and S2. No murmurs, rubs or gallops. Lungs--clear bilaterally, no respiratory distress, no accessory muscle use. Abdomen--normal bowel sounds and soft. Extremities--no cyanosis or clubbing. No edema. Results & Data Results & Data Vital Signs (Past 12 Hours) Vital Signs Temp Pulse Pulse Resp BP Pulse Ox O2 Del Method 10/22/24 19:20 36.8 C 56 L 18 134/78 98 Room Air 10/22/24 18:14 117/76 10/22/24 16:07 61 10/22/24 16:06 52 L 10/22/24 15:28 36.5 C 50 L 20 106/69 95 Room Air 10/22/24 10:32 36.8 C 53 L 18 126/83 96 Room Air PG Care Time/CCT Total # of Minutes Spent Total Time Spent with Patient: Total time spent is greater than 50% in coordination of care (as documented) at patient's floor/unit and/or counseling patient: Coding Level of Care Code 84480 SUB INP/OBS CARE 2/35MIN Diagnoses Mastoiditis H70.91 Laterality: right Hypomagnesemia E83.42 Hyperglycemia due to type 2 diabetes mellitus E11.65 Cough R05.9 Groin abscess L02.214 Vomiting and diarrhea R11.10; R19.7 Thyroid nodule E04.1 (1) Mastoiditis Laterality: right Qualified Code(s): H70.91 - Unspecified mastoiditis, right ear
[2024-10-23] MEDS: DICLOFENAC SOD 1% GEL 100 GM TUBE EXT SCH (00:30)
[2024-10-23 07:17] LABS: Hematocrit (blood only) 35.8 % (37.0-47.0); Hemoglobin 12.3 g/dl (12.0-16.0); Mean Corpuscular Hemoglobin 29.1 pg (25.0-34.0); Mean Corpuscular Hgb Conc 34.4 g/dL (32.0-36.0); Mean Corpuscular Volume 84.6 fL (80.0-100.0); Mean Platelet Volume 9.9 fL (9.4-12.4); Platelet Count 199 K/uL (130-400); RDW Coefficient of Variation 12.6 % (11.5-14.5); RDW Standard Deviation 38.5 fL (36.4-46.3); Red Blood Count 4.23 M/uL (4.20-5.40); White Blood Count 6.05 K/ul (4.8-10.8)
[2024-10-23 07:26] VITALS: RESP 16
[2024-10-23 07:35] LABS: BUN Creatinine Ratio 26.2 (10-20); Calcium 8.3 mg/dl (8.6-10.3); Creatinine Clr Calc Pharmacy 122.5 ml/min; Potassium 3.6 mmol/L (3.5-5.1)
[2024-10-23] MEDS: LANTUS PER UNIT CHARGE SQ SCH (08:15)
[2024-10-23] MEDS: POLYETHYLENE (MIRALAX) 17 GM PACK PO SCH (08:33)
--- NOTE | 2024-10-23 08:47 | Pharmacy Report ---
Pharmacy Glycemic Short Note 2 - Date of Service October 23, 2024 - Glycemic Short BSG Results (Last 24 hours): 10/22/24 10/22/24 10/22/24 11:06 16:07 18:05 Glucose POC Glucose 137 H 101 H 137 H 10/22/24 10/23/24 10/23/24 19:54 06:44 07:28 Glucose 98 POC Glucose 137 H 93 OUTPATIENT ANTIDIABETIC REGIMEN: * Insulin pump (previous settings 1.2 units/hr, CF 29, CR 1:7 per outpatient notes - patient not able to tell me specific settings) * U-500 - 40 units bid - per last Endo note (patient reporting 30-40 units bid, however self adjusts based upon BSG value Notes, frequent hypoglycemia overnight ASSESSMENT: 10/23: * Patient received total of 63 units of insulin yesterday, BSGs well controlled * Patient reporting some symptoms of hypoglycemia at dinner last night, even though blood sugar not low - BSG 101 - patient with elevated A1c so likely not adjusted to lower blood sugars. Plan to scale back parameters to let blood sugars rise slightly and target higher range 120-160 * Will scale back basal to 35 units this AM, and loosen novolog - Anticipate patient needing Lantus ~35 units once daily, Novolog ~10 units TIDM for discharge. Would recommend patient have closer follow up upon discharge to determine if regimen would need titrated 10/21: * Patient received total of 95 units of insulin yesterday, of which 55 units were Lantus. * Fasting BSG 84 - 106 mg/dL - will scale back slightly on basal this AM as fasting BSG now trending down, will decrease ~10% * Blood sugars continue to improve throughout the day yesterday, will provide looser novolog parameters * DM educator met with patient and patient prefers to go on SQ injections at time of discharge. Will monitor. 10/19/24 * Patient received 55 units of basal yesterday + 105 units of NovoLog carb coverage, while on the insulin drip at rates from 2-10 units/hr, d/t IV Solu- Medrol induced hyperglycemia, given yesterday morning. Blood sugar at goal this morning, overlapped insulin drip with basal insulin, and drip turned off at 1000. * Will continue basal bolus insulin at this time, on type 2 DM diet, no further steroids at this time. 10/18/24 * 49 year old admitted with otomastoiditis of right ear. PMHx significant for type 2 diabetes, hld, ibs, asthma, julissa's, gastroparesis. Pharmacy consulted for glycemic management. Last visit with YAMINI Regan 10/09/24 - at that time she was taking U-500 40 units BID but plan was to switch back to pump once supplies were mailed to her. Patient reports still waiting on insulin pump supplies to come in and also had misplaced some of the supplies for pump. BSGs >400 this AM, confirmed recheck with RN was also >400. Patient did received Solu-Medrol 125 mg iv earlier this AM, likely contributing to hyperglycemia. * Will give IV insulin bolus 0.1 units/kg x 1 now, will give Lantus 40 units x 1 (full weight based stress of 3 dosing) and start novolog. Will likely have scale for Lantus at HS if BSGs continue to be elevated * Lunch BSG unchanged - started insulin infusion. Will have Lantus scale for HS to help with transition off drip PLAN FOR INPATIENT GLYCEMIC CONTROL: * Hold outpatient diabetes medications * Basal insulin * Lantus 35 units daily * Bolus insulin * NovoLog ACHS * CF: 30 mg/dL/units * CR: 1 unit per 8 grams CHO consumed
[2024-10-23] MEDS: VANCOMYCIN LEVEL ONE (09:41)
[2024-10-23 10:58] VITALS: BP 130/79; TEMP 97.7; O2SAT 96
[2024-10-23 14:56] VITALS: PULSE 56
== END 2024-10-23 15:00 | disposition home or self-care (01) | DRG 854 ==
LOC: SUATTDRO → EDINP 23:35 → ED 23:35 → SUATTDRO 10-18 05:49 → 2S 10-19 08:38